=== PATIENT | female | born 1965 | race Caucasian/White ===

== ENCOUNTER 2016-05-24 18:03 | Emergency (ER) | payer MEDICAID, OTHER ==
[~2016-05-24] VITALS: Ht 172.7 cm; Wt 68.0 kg
[~2016-05-24 18:03] MED LIST: ALPR.25T PO; CTLP20T PO; ENXP40I.4 SC; LISI1TAB10 PO; LOVA40TA2 PO; TPR25T PO
--- NOTE | 2016-05-24 18:27 | ED Headache ---
General Chief Complaint: Head/Cervical Problems Stated Complaint: 'BONE FLAP' PAIN FROM BRAIN SURGERY Source: patient Exam Limitations: no limitations History of Present Illness Time seen by provider: 18:24 Initial Comments To ER with pain in her head. 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 Bone flaps were placed with craniotomy site. She had a spontaneous fracture of the skull near the bone flap site after hearing a popping noise in March 2015 without injury. About 1 month ago she heard a popping noise again. Again, there was no injury. For the past 3 weeks she's had some tingling in her left hand and pain behind the right eye as well as blurred vision in the right eye. Neurosurgeon is in [facility]. Timing/Duration: 1 week Severity/Quality: moderate Location: frontal, parietal Associated Symptoms: No confusion, No nausea/vomiting, No numbness in legs/feet , vision changes Allergies and Home Medications Allergies Coded Allergies: Sulfa (Sulfonamide Antibiotics) (Verified Allergy, Unknown, 05/24/16) divalproex sodium (Verified Allergy, Unknown, 05/24/16) iodine (Verified Allergy, Unknown, 05/24/16) Home Medications (Reported) Alprazolam 0.5 Mg Tablet 0.5 MG PO TID (Reported) Aspirin 81 Mg Tablet.dr 81 MG PO (Reported) Cholecalciferol (Vitamin D3) 400 Unit Capsule 400 UNIT PO (Reported) Cyanocobalamin 1,000 Mcg/Ml Inj 1,000 MCG IJ (Reported) Duloxetine HCl 60 Mg Capsule.dr 60 MG PO (Reported) Folic Acid 0.4 Mg Tablet 0.4 MG PO (Reported) Gabapentin 100 Mg Capsule 100 MG PO (Reported) Lisinopril 20 Mg Tablet 20 MG PO DAILY (Reported) Metoprolol Tartrate 25 Mg Tablet 25 MG PO BID (Reported) Ondansetron 4 Mg Tab.rapdis 4 MG PO (Reported) Oxycodone HCl/Acetaminophen 1 Each Tablet 1 EACH PO (Reported) Pravastatin Sodium 80 Mg Tablet 80 MG PO (Reported) Tizanidine HCl 4 Mg Capsule 4 MG PO TID (Reported) Constitutional: see HPI Eyes: No Symptoms Reported Ears, Nose, Mouth, Throat: no symptoms reported Respiratory: no symptoms reported Cardiovascular: no symptoms reported Genitourinary: no symptoms reported Musculoskeletal: no symptoms reported Skin: no symptoms reported Psychiatric/Neurological: See HPI Headache Paresthesia Pre-Existing Deficit Past Gqubiaa-Wpphvj-Svcwrn Hx Patient Social History Recent Foreign Travel: No Contact w/Someone Who Travel: No Respiratory Hx Respiratory Disorders: Yes (seasonal allergies) Cardiovascular Hx Cardiac Disorders: Yes (mvp) Genitourinary Hx Genitourinary Disorders: No Gastrointestinal Hx Gastrointestinal Disorders: No Cancer Hx Cancer: No Physical Exam Vital Signs Vital Sign - Last 12Hours 05/24/16 18:11 Temp 98.9 Pulse 56 Resp 18 B/P 188/97 Pulse Ox 96 O2 Delivery Room Air Capillary Refill : General Appearance: WD/WN no apparent distress HEENT: PERRL/EOMI normal ENT inspection TMs normal Neck: non-tender full range of motion Respiratory: normal breath sounds no respiratory distress no accessory muscle use Gastrointestinal: normal bowel sounds non tender soft Extremities: normal range of motion non-tender Psychiatric: alert oriented x 3 Crainal Nerves: normal hearing normal speech Skin: normal color warm/dry Progress/Results/Core Measures Results/Orders My Orders Orders-MARLEN FLANAGAN APRN Ct Head Wo (05/24/16 18:23) Vital Signs/I&O Vital Sign - Last 12Hours 05/24/16 18:11 Temp 98.9 Pulse 56 Resp 18 B/P 188/97 Pulse Ox 96 O2 Delivery Room Air Diagnostic Imaging Diagonstic Imaging: CT Comments NAME: ANTHONY KING [facility] REC#: [id number] PT STATUS: REG ER : 1965 PHYSICIAN: MARLEN FLANAGAN APRN ADMIT DATE: 05/24/16/ER Draft Date of Exam:05/24/16 CT HEAD WO INDICATION: History of previous craniotomy for removal of cyst in third ventricle, now with left hand tingling and retro-orbital pain. EXAMINATION: Noncontrast brain CT was performed. COMPARISON: There is no prior study available for comparison at this time. FINDINGS: There are no extra-axial fluid collections. No intracranial hemorrhage. No mass effect or midline shift. There is no significant ventricular dilatation. There are likely chronic changes in the region of the septum pellucidum, without mass effect. Calvarial windows show evidence of previous craniotomy with no acute appearing finding. There is no significant opacification of the visualized paranasal sinuses. IMPRESSION: Postoperative findings with no acute intracranial abnormality seen. Dictated on workstation # [id number] Dict: 05/24/16 1846 Trans: 05/24/16 185 [facility] [id number] Interpreted by: HI ENG MD Electronically signed by: Departure Impression Impression: Primary Impression: Headache Qualified Code: R51 - Headache Disposition: 01 HOME, SELF-CARE Condition: Stable Departure-Patient Inst. Decision time for Depature: 19:03 Referrals: ARVIN GOMES (PCP/Family) Primary Care Physician Patient Instructions: Headache, Adult (DC) Add. Discharge Instructions: 1. Follow-up with her neurologist or neurosurgeon 2. All discharge instructions reviewed with patient and/or family. Voiced understanding. MARLEN FLANAGAN APRN May 24, 2016 18:26
[2016-05-24] MEDS ORDERED: GABA-486 PO (18:33)
[2016-05-24] MEDS ORDERED: DULO60CA58 PO (18:33)
[2016-05-24] MEDS ORDERED: FOLI0.4T2 PO (18:33)
[2016-05-24] MEDS ORDERED: TIZA4CAP8 PO (18:33)
[2016-05-24] MEDS ORDERED: CNC1KV IJ (18:33)
[2016-05-24] MEDS ORDERED: KCL (18:33)
[2016-05-24] MEDS ORDERED: METO-333 PO (18:33)
[2016-05-24] MEDS ORDERED: PRAV80TA2 PO (18:33)
[2016-05-24] MEDS ORDERED: ERGO400C PO (18:33)
[2016-05-24] MEDS ORDERED: ALPR0.5T PO (18:33)
[2016-05-24] MEDS ORDERED: ASPI-586 PO (18:33)
[2016-05-24] MEDS ORDERED: ONDA4TAB8 PO (18:33)
[2016-05-24] MEDS ORDERED: OXYC-471 PO (18:33)
[2016-05-24] MEDS ORDERED: LISI-552 PO (18:33)
--- NOTE | 2016-05-24 18:52 | Diagnostic Imaging Report ---
INDICATION: History of previous craniotomy for removal of cyst in third ventricle, now with left hand tingling and retro-orbital pain. EXAMINATION: Noncontrast brain CT was performed. COMPARISON: There is no prior study available for comparison at this time. FINDINGS: There are no extra-axial fluid collections. No intracranial hemorrhage. No mass effect or midline shift. There is no significant ventricular dilatation. There are likely chronic changes in the region of the septum pellucidum, without mass effect. Calvarial windows show evidence of previous craniotomy with no acute appearing finding. There is no significant opacification of the visualized paranasal sinuses. IMPRESSION: Postoperative findings with no acute intracranial abnormality seen. Dictated by: Dictated on workstation # [id number]
[2016-05-24] MEDS ORDERED: ACET/BUTAL/CAFF (FIORICET) TAB PO PRN (19:15)
[2016-05-24 19:17] VITALS: BP 0/0
== END 2016-05-24 19:17 | disposition home or self-care (01) ==
LOC: EDUNIT# 18:03 → ER 18:06
DX: R51 Headache (principal); Z98.890 Other specified postprocedural states; Z79.899 Other long term (current) drug therapy
CPT/HCPCS: 70450; 99282

== ENCOUNTER 2016-06-15 19:14 | Emergency (ER) | payer MEDICAID ==
[~2016-06-15] VITALS: Ht 172.7 cm; Wt 59.9 kg
[~2016-06-15 19:14] MED LIST changes: +ALPR0.5T PO; +ASPI-586 PO; +CNC1KV IJ; +DULO60CA58 PO; +ERGO400C PO; +FOLI0.4T2 PO; +GABA-486 PO; +KCL; +LISI-552 PO; +METO-333 PO; +ONDA4TAB8 PO; +OXYC-471 PO; +PRAV80TA2 PO; +TIZA4CAP8 PO
--- OUTSIDE RECORDS SUMMARY | 2016-06-15 19:21 | XMS REPORT | Continuity of Care Document ---
Author Author [facility] Organization [facility] Address Unknown Phone Unavailable Care Team Providers Care Communications And Signals Supervisor Name Role Phone ARVIN GOMES PCP Insurance Providers Payer Name Policy Number Subscriber Name Relationship Unknown Jo Ann Wiley 18 Self / Same As Patient Advance Directives Directive Response Recorded Date/Time Advance Directives No 05/24/16 6:11pm Health Care Power of [employer] Product Consultant No 05/24/16 6:11pm Organ Donor Yes 05/24/16 6:11pm Resuscitation Status Full Code 05/24/16 6:11pm Chief Complaint and Reason for Visit Chief Complaint Head/Cervical Problems Reason for Visit Headache Problems Active Problems Medical Problem Onset Date Status Headache Unknown Acute Medications Current Home Medications Medication Dose Units Route Directions Days/Qty Instructions Start Date Duloxetine Hcl 60 Mg 60 Mg Oral 05/24/16 Tizanidine Hcl 4 Mg 4 Mg Oral Three Times A Day 05/24/16 Cyanocobalamin 1,000 Mcg/Ml 1,000 Mcg Injection 05/24/16 Gabapentin 100 Mg 100 Mg Oral 05/24/16 Cholecalciferol (Vitamin D3) 400 Unit 400 Unit Oral 05/24/16 Lisinopril 20 Mg 20 Mg Oral Daily 05/24/16 Ondansetron 4 Mg 4 Mg Oral 05/24/16 Oxycodone Hcl/Acetaminophen 1 Each 1 Each Oral 02/25/17 Metoprolol Tartrate 25 Mg 25 Mg Oral Twice A Day 05/24/16 Folic Acid 0.4 Mg 0.4 Mg Oral 05/24/16 Aspirin 81 Mg 81 Mg Oral 05/24/16 Alprazolam 0.5 Mg 0.5 Mg Oral Three Times A Day 05/24/16 [Kcl] 05/24/16 Pravastatin Sodium 80 Mg 80 Mg Oral 05/24/16 Past Home Medications Medication Directions Ordered Status Enoxaparin Sodium 40 Mg/0.4 Ml Soln, 40 Mg Subcutaneously Daily@12 03/08/12 Discontinued Lovastatin (Mevacor) 40 Mg Tablet, 1 Each Oral Daily With Supper 03/08/12 Discontinued Citalopram Hydrobromide 20 Mg Tablet, 1 Each Oral Daily 03/08/12 Discontinued Hctz/Lisinopril (Zestoretic) 1 Tab Tablet, 1 Each Oral Daily 03/08/12 Discontinued Alprazolam 0.25 Mg Tablet, 1 Tab Oral Q8hr Prn 03/08/12 Discontinued Topiramate 25 Mg Tab, 25 Mg Oral Give Every 12 Hrs On Schedule 03/08/12 Discontinued Social History Social History Problem Response Recorded Date/Time Alcohol Use Denies Use 05/24/2016 6:11pm Recreational Drug Use No 05/24/2016 6:11pm Recent Foreign Travel No 05/24/2016 6:11pm Recent Infectious Disease Exposure No 05/24/2016 6:11pm Hospitalization with Isolation Denies 05/24/2016 6:11pm Smoking Status Current Everyday Smoker 05/24/2016 6:11pm Type Used Cigarettes 05/24/2016 6:11pm Recent Hopitalizations No 05/24/2016 6:11pm Hospitalization with Isolation Denies 05/24/2016 6:11pm Query Response Start Date Stop Date Smoking Status Current Everyday Smoker Hospital Discharge Instructions No hospital discharge instructions. Plan of Care Discharge Date 05/24/16 7:17pm Disposition 01 HOME, SELF-CARE Condition at Discharge Stable Instructions/Education Provided Headache, Adult (DC) Prescriptions See Medication Section Referrals ARVIN GOMES - Primary Care Physician Additional Instructions/Education 1. Follow-up with her neurologist or neurosurgeon 2. All discharge instructions reviewed with patient and/or family. Voiced understanding. Functional Status Query Response Date Recorded Patient Orientation Person Place Time Situation May 24, 2016 6:11pm Comprehension Ability Understands Concepts May 24, 2016 6:11pm Allergies, Adverse Reactions, Alerts Allergen Type Severity Reaction Status Last Updated Sulfa (Sulfonamide Antibiotics) ([id number]) Allergy Unknown Active iodine ([id number]) Allergy Unknown Active 05/24/16 divalproex sodium ([id number]) Allergy Unknown Active 05/24/16 Immunizations No immunization records. Vital Signs Acute Vital Signs Vital Response Date/Time Temperature (Fahrenheit) 98.9 degrees F (97.6 - 99.5) 05/24/2016 6:11pm Temperature (Calculated Celsius) 37.22739 degrees C (36.4 - 37.5) 05/24/2016 6:11pm Temperature Source Temporal 05/24/2016 6:11pm Pulse Rate (adult) 56 bpm (60 - 90) 05/24/2016 6:11pm Respiratory Rate 18 bpm (12 - 24) 05/24/2016 6:11pm O2 Sat by Pulse Oximetry 96 % (88 - 100) 05/24/2016 6:11pm Blood Pressure 188/97 mm Hg 05/24/2016 6:11pm Blood Pressure Mean 127 mm Hg 05/24/2016 6:11pm Pain Numeric Pain Scale 9 05/24/2016 6:11pm Height (Feet) 5 feet 05/24/2016 6:11pm Height (Inches) 8 inches 05/24/2016 6:11pm Height (Calculated Centimeters) 172.188637 cm 05/24/2016 6:11pm Weight (Pounds) 150 pounds 05/24/2016 6:11pm Weight (Calculated Kilograms) 68.149222 kilograms 05/24/2016 6:11pm Capillary Refill Capillary Refill Less Than 3 Seconds 05/24/2016 6:11pm Height 5 ft 8 in Weight 150 lb Body Mass Index 22.8 kg/m^2 Results No known relevant diagnostic tests, laboratory data and/or discharge summary. Procedures No known history of procedures. Encounters Encounter Location Arrival/Admit Date Discharge/Depart Date Attending Provider Departed Emergency Room [facility] 05/24/16 6:06pm 05/24 7:17pm MARLEN FLANAGAN APRN Recent Diagnosis
[2016-06-15] MEDS ORDERED: ONDANSETRON 4 MG/2 ML (SDV) Z0FRAN IVP ONE (20:15)
[2016-06-15] MEDS ORDERED: KETOROLAC 30 MG/ML VIAL IVP ONE (20:15)
[2016-06-15] MEDS ORDERED: LACTATED RINGERS 1,000 ML IV ONE (20:15)
[2016-06-15 20:25] LABS: BASOPHILS # (AUTO) 0.1 10^3/uL (0.0-0.1); BASOPHILS % (AUTO) 1 % (0-10); EOSINOPHILS # (AUTO) 0.2 10^3/uL (0.0-0.3); EOSINOPHILS % (AUTO) 3 % (0-10); LYMPHOCYTES # (AUTO) 3.2 X 10^3 (1.0-4.0); LYMPHOCYTES % (AUTO) 40 % (12-44); MEAN CORPUSCULAR HEMOGLOBIN 33 PG (25-34); MEAN CORPUSCULAR HGB CONC 36 G/DL (32-36); MEAN CORPUSCULAR VOLUME 91 FL (80-99); MEAN PLATELET VOLUME 10.2 FL (7.4-10.4); MONOCYTES # (AUTO) 0.7 X 10^3 (0.0-1.0); MONOCYTES % (AUTO) 8 % (0-12); NEUTROPHILS # (AUTO) 3.8 X 10^3 (1.8-7.8); NEUTROPHILS % (AUTO) 48 % (42-75); PLATELET COUNT 235 10^3/uL (130-400); RED BLOOD COUNT 4.56 10^6/uL (4.35-5.85); RED CELL DISTRIBUTION WIDTH 12.8 % (10.0-14.5); WHITE BLOOD COUNT 7.9 10^3/uL (4.3-11.0)
[2016-06-15 20:34] LABS: ANION GAP 13 MMOL/L (5-14); BLOOD UREA NITROGEN 10 MG/DL (7-18); BUN/CREATININE RATIO 11; CALCIUM 9.6 MG/DL (8.5-10.1); CARBON DIOXIDE 23 MMOL/L (21-32); CHLORIDE 105 MMOL/L (98-107); CREATININE SERUM 0.87 MG/DL (0.60-1.30); GFR ESTIMATED > 60; GLUCOSE 89 MG/DL (70-105); MAGNESIUM 2.3 MG/DL (1.8-2.4); POTASSIUM 3.8 MMOL/L (3.6-5.0); SODIUM 141 MMOL/L (135-145)
--- NOTE | 2016-06-15 20:37 | ED Headache ---
General Chief Complaint: Head/Cervical Problems Stated Complaint: VOMITING/TREMORS DIZZINESS HEAD PAIN DOUBLE VISION Nursing Triage Note: PT TO ED 9 W/ C/O HEAD PAIN ET "POSS CSF LEAK" FROM HER EARS. PT SEEN IN THIS ED SEVERAL WEEKS AGO FOR THE SAME C/O. AT THAT TIME PT REPORTED SHE THOUGHT SHE FELT A "POP" IN HER TEMPORAL REGION ET STATED THE LAST TIME THAT HAPPENED SHE HAD A "SPONTANEOUS SKULL FX." PT REPORTS NAUSEA, DIZZINESS ET HEAD PAIN THIS EVENING. DOES REPORT SHE HAS AN APPT W/ ENT AT [facility] Sepsis Screen: No Definite Risk Source: patient Exam Limitations: no limitations History of Present Illness Time seen by provider: 20:07 Initial Comments This 50-year-old woman presents to the emergency room with exacerbation of recurrent headaches. Patient has a history of craniotomy for tumor removal with plating and revision. She follows with neurosurgery at [facility]. Patient reports she has generally not felt well for a couple of days. She is to see an ENT specialist later this week. She reports having problems with ear effusions. Her headache is radiating from the back for head to behind the eyes and the jaw. She took her usual Zofran and Percocet today which was not helpful. To treat her ear effusion she has only been taking Benadryl at night. She gives a history of following up closely with her neurosurgeon and having follow-up imaging performed. Allergies and Home Medications Allergies Coded Allergies: Sulfa (Sulfonamide Antibiotics) (Verified Allergy, Unknown, 05/24/16) divalproex sodium (Verified Allergy, Unknown, 05/24/16) iodine (Verified Allergy, Unknown, 05/24/16) Home Medications (Reported) Alprazolam 0.5 Mg Tablet 0.5 MG PO TID (Reported) Aspirin 81 Mg Tablet. 81 MG PO (Reported) Cholecalciferol (Vitamin D3) 400 Unit Capsule 400 UNIT PO (Reported) Cyanocobalamin 1,000 Mcg/Ml Inj 1,000 MCG IJ (Reported) Duloxetine HCl 60 Mg Capsule.dr 60 MG PO (Reported) Fluticasone Propionate 9.9 Ml [place].susp #1 2 SPRAY NSEACH DAILY Prescribed by: BENJAMIN FARIA on 06/15/162047 Folic Acid 0.4 Mg Tablet 0.4 MG PO (Reported) Gabapentin 100 Mg Capsule 100 MG PO (Reported) Lisinopril 20 Mg Tablet 20 MG PO DAILY (Reported) Loratadine 10 Mg Tablet #30 10 MG PO DAILY Prescribed by: BENJAMIN FARIA on 06/15/162047 Metoprolol Tartrate 25 Mg Tablet 25 MG PO BID (Reported) Ondansetron 4 Mg Tab.rapdis 4 MG PO (Reported) Oxycodone HCl/Acetaminophen 1 Each Tablet 1 EACH PO (Reported) Pravastatin Sodium 80 Mg Tablet 80 MG PO (Reported) Tizanidine HCl 4 Mg Capsule 4 MG PO TID (Reported) Triamterene/Hydrochlorothiazid 1 Each Tablet #15 1 EACH PO DAILY Prescribed by: MARJAN STOLL on 06/16/16 1354 Constitutional: see HPI Eyes: No Symptoms Reported Ears, Nose, Mouth, Throat: no symptoms reported Respiratory: no symptoms reported Cardiovascular: no symptoms reported Gastrointestinal: see HPI Genitourinary: no symptoms reported Musculoskeletal: no symptoms reported Skin: no symptoms reported Psychiatric/Neurological: See HPI Past Mjrtwvn-Khzsdk-Xcammi Hx Patient Social History Alcohol Use: Denies Use Recreational Drug Use: No Smoking Status: Current Everyday Smoker Type Used: Cigarettes Recent Foreign Travel: No Contact w/Someone Who Travel: No Recent Infectious Disease Expo: No Recent Hopitalizations: No Seasonal Allergies Seasonal Allergies: Yes Surgeries HX Surgeries: Yes (BRAIN TUMOR REMOVAL, craniotomy revision with hardware) Surgeries: Gallbladder, Hysterectomy Respiratory Hx Respiratory Disorders: No Cardiovascular Hx Cardiac Disorders: Yes (mvp) Neurological Hx Neurological Disorders: Yes (MEMORY LOSS R/T BRAIN TUMOR REMOVAL, craniotomy and revision with hardware) Neurological Disorders: Brain Tumor, Headaches /Migraines Reproductive System : No Genitourinary Hx Genitourinary Disorders: No Gastrointestinal Hx Gastrointestinal Disorders: No Musculoskeletal Hx Musculoskeletal Disorders: Yes (Craniotomy with hardware) Endocrine Hx Endocrine Disorders: No HEENT HX ENT Disorders: No Cancer Hx Cancer: No Psychosocial Hx Psychiatric Problems: Yes Behavioral Health Disorders: Anxiety, Depression Physical Exam Vital Signs Vital Sign - Last 12Hours 06/15/16 19:44 Temp 98.6 Pulse 59 Resp 20 B/P 203/106 Pulse Ox 97 O2 Delivery Room Air Capillary Refill : Less Than 3 Seconds General Appearance: WD/WN other (Appears uncomfortable) HEENT: PERRL/EOMI normal ENT inspection other (TM scarring bilaterally with serous effusion on the right) Neck: normal inspection Cardiovascular: regular rate, rhythm no edema no murmur Respiratory: lungs clear normal breath sounds no respiratory distress no accessory muscle use Gastrointestinal: normal bowel sounds non tender soft Extremities: normal inspection no pedal edema Psychiatric: alert oriented x 3 Crainal Nerves: normal hearing normal speech PERRL Motor/Sensory: no motor deficit no sensory deficit Skin: normal color warm/dry Progress/Results/Core Measures Results/Orders Lab Results Laboratory Tests Test 06/15/16 19:51 Range/Units Anion Gap 13 5-14 MMOL/L BUN/Creatinine Ratio 11 Basophils # (Auto) 0.1 0.0-0.1 10^3/uL Basophils (%) (Auto) 1 0-10 % Blood Urea Nitrogen 10 7-18 MG/DL C-Reactive Protein High Sensitivity 0.10 0.00-0.50 MG/DL Calcium Level 9.6 8.5-10.1 MG/DL Carbon Dioxide Level 23 21-32 MMOL/L Chloride Level 105 98-107 MMOL/L Creatinine 0.87 0.60-1.30 MG/DL Eosinophils # (Auto) 0.2 0.0-0.3 10^3/uL Eosinophils (%) (Auto) 3 0-10 % Estimat Glomerular Filtration Rate > 60 Glucose Level 89 70-105 MG/DL Hematocrit 42 35-52 % Hemoglobin 14.8 11.5-16.0 G/DL Lymphocytes # (Auto) 3.2 1.0-4.0 X 10^3 Lymphocytes (%) (Auto) 40 12-44 % Magnesium Level 2.3 1.8-2.4 MG/DL Mean Corpuscular Hemoglobin 33 25-34 PG Mean Corpuscular Hemoglobin Concent 36 32-36 G/DL Mean Corpuscular Volume 91 80-99 FL Mean Platelet Volume 10.2 7.4-10.4 FL Monocytes # (Auto) 0.7 0.0-1.0 X 10^3 Monocytes (%) (Auto) 8 0-12 % Neutrophils # (Auto) 3.8 1.8-7.8 X 10^3 Neutrophils (%) (Auto) 48 42-75 % Platelet Count 235 130-400 10^3/uL Potassium Level 3.8 3.6-5.0 MMOL/L Red Blood Count 4.56 4.35-5.85 10^6/uL Red Cell Distribution Width 12.8 10.0-14.5 % Sodium Level 141 135-145 MMOL/L White Blood Count 7.9 4.3-11.0 10^3/uL My Orders Orders-BENJAMIN YADAV MD Basic Metabolic Panel (06/15/16 20:15) Cbc With Automated Diff (06/15/16 20:15) Magnesium (06/15/16 20:15) Saline Lock/Iv-Start (06/15/16 20:15) Lactated Ringers (Lr 1000 Ml Iv Solution (06/15/16 20:15) Ketorolac Injection (Toradol Injection) (06/15/16 20:15) Ondansetron Injection (Zofran Injectio (06/15/16 20:15) Hs C Reactive Protein (06/15/16 20:17) Medications Given in ED Vital Signs/I&O Vital Sign - Last 12Hours 06/15/16 06/15/16 19:44 21:38 Temp 98.6 Pulse 59 60 Resp 20 16 B/P 203/106 Pulse Ox 97 98 O2 Delivery Room Air Blood Pressure Mean: 138 Progress Note : Progress Note Patient received Zofran, Toradol, and a liter of IV fluids with significant improvement. Labs revealed no significant abnormalities. Patient felt comfortable returning home. She was prescribed Flonase and Claritin for the ear effusion. Departure Impression Impression: Primary Impression: Recurrent headache Additional Impression: Serous otitis media Qualified Code: H65.91 - Unspecified nonsuppurative otitis media, right ear Disposition: 01 HOME, SELF-CARE Condition: Improved Departure-Patient Inst. Decision time for Depature: 20:46 Referrals: [facility] (PCP/Family) Primary Care Physician Patient Instructions: Headache, Adult (DC) Add. Discharge Instructions: Stay well-hydrated. Use your Zofran as prescribed. You may use ibuprofen up to 600 mg every 6 hours as needed. Add your Percocet or Tylenol for pain not controlled by ibuprofen. Return to care if symptoms worsen. All discharge instructions reviewed with patient and/or family. Voiced understanding. Scripts Loratadine (Claritin)10 Mg [id number] Mg PO DAILY #30 TAB Prov:BENJAMIN YADAV MD 06/15/16 Fluticasone Propionate (Flonase Allergy Relief)9.9 Ml [place].susp2 [place] NSEACH DAILY #1 SPRAY Prov:BENJAMIN YADAV MD 06/15/16 BENJAMIN YADAV MD Jun 15, 2016 20:37
[2016-06-15] MEDS ORDERED: FLUT9.9S NSEACH (20:48)
[2016-06-15] MEDS ORDERED: LORA10TA76 PO (20:48)
[2016-06-15 21:38] VITALS: BP 185/94
[2016-06-16] MEDS ORDERED: TRIA1TAB2 PO (13:54)
== END 2016-06-15 21:38 | disposition home or self-care (01) ==
LOC: EDUNIT# 19:14 → ER 19:17
DX: H65.191 Other acute nonsuppurative otitis media, right ear (principal); R51 Headache; I10 Essential (primary) hypertension; F17.210 Nicotine dependence, cigarettes, uncomplicated; Z79.82 Long term (current) use of aspirin; Z79.899 Other long term (current) drug therapy
CPT/HCPCS: 36415; 80048; 83735; 85025; 86141; 96374; 96375

== ENCOUNTER 2016-06-16 12:07 | Emergency (ER) | payer MEDICAID ==
[~2016-06-16] VITALS: Ht 172.7 cm; Wt 63.5 kg
[~2016-06-16 12:07] MED LIST changes: +FLUT9.9S NSEACH; +LORA10TA76 PO
--- OUTSIDE RECORDS SUMMARY | 2016-06-16 12:12 | XMS REPORT | Continuity of Care Document ---
Author Author [facility] Organization [facility] Address Unknown Phone Unavailable Care Team Providers Care Filter Helper Name Role Phone [facility] PCP Insurance Providers Payer Name Policy Number Subscriber Name Relationship [facility] [id number] Jo Ann Wiley 18 Self / Same As Patient Advance Directives Directive Response Recorded Date/Time Advance Directives No 06/15/16 7:44pm Health Care Power of Wafer Substrate Tester No 06/15/16 7:44pm Organ Donor Yes 06/15/16 7:44pm Resuscitation Status Full Code 06/15/16 7:44pm Chief Complaint and Reason for Visit Chief Complaint Head/Cervical Problems Reason for Visit Recurrent headache Serous otitis media Problems Active Problems Medical Problem Onset Date Status Headache Unknown Acute Recurrent headache Unknown Acute Serous otitis media Unknown Acute Medications Current Home Medications Medication [...] Oxycodone Hcl/Acetaminophen 1 Each 1 Each Oral 05/24/16 Metoprolol Tartrate 25 Mg 25 Mg Oral Twice A Day 05/24/16 Folic Acid 0.4 Mg 0.4 Mg Oral 05/24/16 Aspirin 81 Mg 81 Mg Oral 05/24/16 Alprazolam 0.5 Mg 0.5 Mg Oral Three Times A Day 05/24/16 [Kcl] 05/24/16 Pravastatin Sodium 80 Mg 80 Mg Oral 05/24/16 Fluticasone Propionate 9.9 Ml 2 [place] Each Nostril Daily 1 06/15/16 Loratadine 10 Mg 10 Mg Oral Daily 30 06/15/16 Past Home Medications Medication Directions Ordered Status [...] Response Recorded Date/Time Alcohol Use Denies Use 06/15/2016 7:44pm Recreational Drug Use No 06/15/2016 7:44pm Recent Foreign Travel No 06/15/2016 7:44pm Recent Infectious Disease Exposure No 06/15/2016 7:44pm Hospitalization with Isolation Denies 06/15/2016 7:44pm Smoking Status Current Everyday Smoker 06/15/2016 7:44pm Type Used Cigarettes 06/15/2016 7:44pm Recent Hopitalizations No 06/15/2016 7:44pm Hospitalization with Isolation Denies 06/15/2016 7:44pm Query Response Start Date Stop Date Smoking Status Current Everyday Smoker Hospital Discharge Instructions No hospital discharge instructions. Plan of Care Discharge Date 06/15/16 9:38pm Disposition 01 HOME, SELF-CARE Condition at Discharge Improved Instructions/Education Provided Headache, Adult (DC) Prescriptions See Medication Section Referrals [facility] - Primary Care Physician Additional Instructions/Education Stay well-hydrated. Use your Zofran as prescribed. You may use ibuprofen up to 600 mg every 6 hours as needed. Add your Percocet or Tylenol for pain not controlled by ibuprofen. Return to care if symptoms worsen. All discharge instructions reviewed with patient and/or family. Voiced understanding. Functional Status Query Response Date Recorded Patient Orientation Person Place Time Situation June 15, 2016 7:44pm Comprehension Ability Understands Concepts June 15, 2016 7:44pm Allergies, Adverse Reactions, Alerts Allergen Type Severity Reaction Status Last Updated Sulfa (Sulfonamide Antibiotics) ([id number]) Allergy Unknown Active iodine ([id number]) Allergy Unknown Active 05/24/16 divalproex sodium ([id number]) Allergy Unknown Active 05/24/16 Immunizations No immunization records. Vital Signs Acute Vital Signs Vital Response Date/Time Temperature (Fahrenheit) 98.6 degrees F (97.6 - 99.5) 06/15/2016 7:44pm Temperature (Calculated Celsius) 37.17799 degrees C (36.4 - 37.5) 06/15/2016 7:44pm Temperature Source Tympanic 06/15/2016 7:44pm Pulse Rate (adult) 60 bpm (60 - 90) 06/15/2016 9:38pm Respiratory Rate 16 bpm (12 - 24) 06/15/2016 9:38pm O2 Sat by Pulse Oximetry 98 % (88 - 100) 06/15/2016 9:38pm Blood Pressure 185/94 mm Hg 06/15/2016 9:38pm Blood Pressure Mean 138 mm Hg 06/15/2016 7:44pm Pain Numeric Pain Scale 8 06/15/2016 9:38pm Height (Feet) 5 feet 06/15/2016 7:44pm Height (Inches) 8 inches 06/15/2016 7:44pm Height (Calculated Centimeters) 172.676090 cm 06/15/2016 7:44pm Weight (Pounds) 132 pounds 06/15/2016 7:44pm Weight (Calculated Kilograms) 59.055619 kilograms 06/15/2016 7:44pm Capillary Refill Capillary Refill Less Than 3 Seconds 06/15/2016 7:44pm Height 5 ft 8 in Weight 132 lb Body Mass Index 20.1 kg/m^2 Results Pending Laboratory Results Test Name Collection Date/Time Procedures No known history of procedures. Encounters Encounter Location Arrival/Admit Date Discharge/Depart Date Attending Provider Departed Emergency Room [facility] 06/15/16 7:17pm 06/15 9:38pm BENJAMIN YADAV MD Departed Emergency Room [facility] 05/24/16 6:06pm 05/24 7:17pm MARLEN FLANAGAN APRN Recent Diagnosis
[2016-06-16 12:46] LABS: BASOPHILS # (AUTO) 0.1 10^3/uL (0.0-0.1); BASOPHILS % (AUTO) 1 % (0-10); EOSINOPHILS # (AUTO) 0.1 10^3/uL (0.0-0.3); EOSINOPHILS % (AUTO) 1 % (0-10); LYMPHOCYTES # (AUTO) 1.9 X 10^3 (1.0-4.0); LYMPHOCYTES % (AUTO) 24 % (12-44); MEAN CORPUSCULAR HEMOGLOBIN 33 PG (25-34); MEAN CORPUSCULAR HGB CONC 36 G/DL (32-36); MEAN CORPUSCULAR VOLUME 92 FL (80-99); MEAN PLATELET VOLUME 9.9 FL (7.4-10.4); MONOCYTES # (AUTO) 0.5 X 10^3 (0.0-1.0); MONOCYTES % (AUTO) 7 % (0-12); NEUTROPHILS # (AUTO) 5.5 X 10^3 (1.8-7.8); NEUTROPHILS % (AUTO) 68 % (42-75); PLATELET COUNT 219 10^3/uL (130-400); RED BLOOD COUNT 4.36 10^6/uL (4.35-5.85); RED CELL DISTRIBUTION WIDTH 12.7 % (10.0-14.5); WHITE BLOOD COUNT 8.1 10^3/uL (4.3-11.0)
[2016-06-16 12:56] LABS: INR 1.1 (0.8-1.4); PROTHROMBIN TIME PATIENT 13.6 SEC (12.2-14.7)
[2016-06-16] MEDS ORDERED: ENALAPRILAT 2.5 MG/2 ML (VASOTEC) VIAL IV ONE (13:00)
[2016-06-16 13:07] LABS: ALANINE AMINOTRANSFERASE 13 U/L (0-55); ALBUMIN 4.4 G/DL (3.2-4.5); ANION GAP 9 MMOL/L (5-14); ASPARTATE AMINO TRANSFERASE 15 U/L (5-34); BILIRUBIN,TOTAL 0.8 MG/DL (0.1-1.0); BLOOD UREA NITROGEN 8 MG/DL (7-18); BUN/CREATININE RATIO 9; CALCIUM 9.3 MG/DL (8.5-10.1); CARBON DIOXIDE 25 MMOL/L (21-32); CHLORIDE 105 MMOL/L (98-107); CREATININE SERUM 0.93 MG/DL (0.60-1.30); GFR ESTIMATED > 60; GLUCOSE 97 MG/DL (70-105); POTASSIUM 4.3 MMOL/L (3.6-5.0); SODIUM 139 MMOL/L (135-145); TOTAL PROTEIN 6.2 G/DL (6.4-8.2)
--- NOTE | 2016-06-16 13:16 | Diagnostic Imaging Report ---
PROCEDURE: CT head without contrast. TECHNIQUE: Multiple contiguous axial images were obtained through the brain without the use of intravenous contrast. INDICATION: Dizziness and blurred vision, hypertension. Comparison with 05/24/2016. FINDINGS: There is no evidence of intracranial hemorrhage. There is no extra-axial fluid collection. There is no mass effect or shift of midline. Ventricles appear normal. Basal cisterns are clear. Postoperative changes are again noted with right frontal parietal craniotomy. The mastoid air cells and paranasal sinuses are clear. IMPRESSION: Postoperative residue with no acute changes demonstrated when compared with previous exam. Dictated by: Dictated on workstation # [id number]
--- NOTE | 2016-06-16 13:23 | Diagnostic Imaging Report ---
INDICATION: Hypertension with increasing headaches. Comparison with 03/08/2012. FINDINGS: Portable chest shows the lungs to be well aerated and clear. The heart is not enlarged. There is no pulmonary edema. No hilar adenopathy. No pneumothorax or pleural effusions. There is mild scoliosis of the thoracic spine with no other bony abnormality. IMPRESSION: No acute abnormalities demonstrated. Dictated by: Dictated on workstation # [id number]
--- NOTE | 2016-06-16 13:38 | ED Headache ---
General Chief Complaint: Head/Cervical Problems Stated Complaint: HIGH BLOOD PRESSURE, MIGRANE Nursing Triage Note: Pt reports increased FLORES over past couple weeks and high blood pressure. Pt was seen in this ED last night for same symptoms and had appointment at [facility] today for follow up. Pt was sent here from [facility] today. Pt has hx craniotomy and cranioplasty. Nursing Sepsis Screen: No Definite Risk Source: patient, old records History of Present Illness Time seen by provider: 12:40 Initial Comments PT SENT BY POElvia FROM [facility] PT HAS CHRONIC MIGRAINES FOR YEARS AND TAKES PERCOCET FOR THEM HAS HAD INCREASED HEADACHES FOR THE LAST COUPLE OF WEEKS THIS HEADACHE STARTED YESTERDAY HEADACHE STARTS AT BASE OF SKULL/POSTERIORLY AND GOES UP THE BACK OF HER HEAD-- EXACTLY THE SAME PREVIOUS HEADACHES C/O NAUSEA AND VOMITING WITH HEADACHE--VOMITED YESTERDAY, BUT NOT TODAY. HAS ZOFRAN AT HOME, BUT HAS NOT TAKEN ANY TODAY STATES SHE HAS NOT BEEN ABLE TO KEEP DOWN MEDICATIONS YESTERDAY, BUT DID TAKE 1 PERCOCET THIS AM, WHICH HELPED TEMPORARILY NO VISION CHANGES NO PARESTHESIAS OR MOTOR DEFICITS NO FEVER NO RECENT ILLNESS, SINUS SYMPTOMS, ETC. C/O CHEST HEAVINESS --STATES IT FEELS HEAVY TO BREATHE PT WAS SEEN HERE LAST PM FOR THIS PROBLEM, AND WAS SEEN AT [facility] TODAY FOR FOLLOW UP BP IN CLINIC WAS 220/102, SO WAS SENT HERE. PT STATES SHE DID TAKE HER BP MEDICATIONS TODAY, BUT NOT YESTERDAY,. PT HAS LONGSTANDING HX OF HTN, AND BP HAS BEEN HIGH THE LAST COUPLE OF WEEKS-- NORMALLY RUNS 140-150'S/80-90. NO RECENT CHANGES IN DOSES OF MEDICATIONS WAS GIVEN PHENERGAN 50 MG IM, THEN SENT HERE BY POV. PT C/O DIZZINESS SINCE RECEIVING PHENERGAN. HAD NOT BEEN HAVING PROBLEMS WITH DIZZINESS PRIOR TO THAT. STATES NAUSEA HAS IMPROVED SINCE SHE RECEIVED THE PHENERGAN LAST CT HEAD WAS 05/24/16 FOR THIS SAME COMPLAINT AND WAS NORMAL EXCEPT FOR POST -OP CHANGES PT HAD A REMOVAL OF COLLOID CYST OF 3RD VENTRICLE REMOVED 04/2014 AND HAD CRANIOPLASTY/"BONE FLAPS" AND HARDWARE REMOVAL 06/07/15 PT SAW HER NEUROSURGEON 06/03/16 AT [facility] IN , AND HAS BEEN FULLY RELEASED FROM THEIR CARE AT THIS TIME PT HAS APPOINTMENT WITH ENT AT [facility] TOMORROW FOR FLUID BEHIND EAR DRUMS PCP:[facility] Allergies and Home Medications Allergies Coded Allergies: Sulfa (Sulfonamide Antibiotics) (Verified Allergy, Unknown, 05/24/16) divalproex sodium (Verified Allergy, Unknown, 05/24/16) iodine (Verified Allergy, Unknown, 05/24/16) Home Medications (Reported) Alprazolam 0.5 Mg Tablet 0.5 MG PO TID (Reported) Aspirin 81 Mg Tablet.dr 81 MG PO (Reported) Cholecalciferol (Vitamin D3) 400 Unit Capsule 400 UNIT PO (Reported) Cyanocobalamin 1,000 Mcg/Ml Inj 1,000 MCG IJ (Reported) Duloxetine HCl 60 Mg Capsule.dr 60 MG PO (Reported) Fluticasone Propionate 9.9 Ml [place].susp #1 2 SPRAY NSEACH DAILY Prescribed by: BENJAMIN FARIA on 06/15/162047 Folic Acid 0.4 Mg Tablet 0.4 MG PO (Reported) Gabapentin 100 Mg Capsule 100 MG PO (Reported) Lisinopril 20 Mg Tablet 20 MG PO DAILY (Reported) Loratadine 10 Mg Tablet #30 10 MG PO DAILY Prescribed by: BENJAMIN FARIA on 06/15/162047 Metoprolol Tartrate 25 Mg Tablet 25 MG PO BID (Reported) Ondansetron 4 Mg Tab.rapdis 4 MG PO (Reported) Oxycodone HCl/Acetaminophen 1 Each Tablet 1 EACH PO (Reported) Pravastatin Sodium 80 Mg Tablet 80 MG PO (Reported) Tizanidine HCl 4 Mg Capsule 4 MG PO TID (Reported) Triamterene/Hydrochlorothiazid 1 Each Tablet #15 1 EACH PO DAILY Prescribed by: MARJAN STOLL on 06/16/16 1354 Constitutional: see HPINo chills, No diaphoresis, dizzinessNo fever Eyes: No Symptoms ReportedDenies Blindness, Denies Blurred Vision, Denies Decreased Acuity, Denies Photophobia, Denies Shadows, Denies Tunnel Vision, Denies Vision Changes Ears, Nose, Mouth, Throat: see HPI (FLUID IN EARS) Respiratory: no symptoms reported Cardiovascular: see HPI (CHEST FEELS HEAVY WITH BREATHING)No edema, No palpitations, No syncope Gastrointestinal: see HPINo abdominal pain, loss of appetite nausea vomiting Genitourinary: no symptoms reported : No (S/P HYST 2000) Musculoskeletal: no symptoms reportedNo back pain, No neck pain Skin: no symptoms reported Psychiatric/Neurological: See HPI HeadacheDenies Numbness, Denies Paresthesia , Denies Seizure, Denies Tingling, Denies Tremors, Denies Weakness Past Jyrvcst-Ocvjth-Cpglkz Hx Patient Social History Alcohol Use: Denies Use Recreational Drug Use: No Smoking Status: Current Everyday Smoker (1 PPD) Type Used: Cigarettes Recent Foreign Travel: No Contact w/Someone Who Travel: No Recent Infectious Disease Expo: No Recent Hopitalizations: No Seasonal Allergies Seasonal Allergies: Yes Surgeries HX Surgeries: Yes (COLLOID CYST OF 3RD VENTRICLE REMOVED 04/2014; CRANIOPLASTY/ "BONE FLAPS" AND HARDWARE REMOVAL 06/07/15) Surgeries: Gallbladder, Hysterectomy, Neurological Respiratory Hx Respiratory Disorders: No Cardiovascular Hx Cardiac Disorders: Yes (MVP) Cardiac Disorders: High Cholesterol, Hypertension, Valvular Heart Disease Neurological Hx Neurological Disorders: Yes (MEMORY LOSS R/T BRAIN CYST REMOVAL--COLLOID CYST OF 3RD VENTRICLE. 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 Genitourinary Hx Genitourinary Disorders: No Gastrointestinal Hx Gastrointestinal Disorders: No Musculoskeletal Hx Musculoskeletal Disorders: No Endocrine Hx Endocrine Disorders: No HEENT HX ENT Disorders: No Cancer Hx Cancer: No Psychosocial Hx Psychiatric Problems: Yes Behavioral Health Disorders: Anxiety, Depression Integumentary HX Skin/Integumentary Disorder: No Blood Transfusions Hx Blood Disorders: No Physical Exam Vital Signs Vital Sign - Last 12Hours 06/16/16 12:27 Temp 98.3 Pulse 49 Resp 18 B/P 225/112 Pulse Ox 98 O2 Delivery Room Air Capillary Refill : Less Than 3 Seconds General Appearance: WD/WN no apparent distress HEENT: PERRL/EOMI pharynx normal other (TM'S WITH EFFUSIONS) Neck: non-tender full range of motion supple normal inspectionNo lymphadenopathy (R), No lymphadenopathy (L) Cardiovascular: normal peripheral pulses regular rate, rhythm no edema no JVD no murmur Respiratory: normal breath sounds no respiratory distress no accessory muscle use Gastrointestinal: normal bowel sounds non tender soft no organomegaly no pulsatile mass Back: normal inspection Extremities: normal range of motion non-tender normal inspection no pedal edema no calf tenderness normal capillary refill Psychiatric: alert oriented x 3 Crainal Nerves: normal hearing normal speech PERRL Coordination/Gait: normal finger to nose normal gait negative Romberg's sign Motor/Sensory: no motor deficit no sensory deficit no pronator drift Skin: normal color warm/dry Progress/Results/Core Measures Results/Orders Lab Results Laboratory Tests Test 06/16/16 12:43 Range/Units Activated Partial Thromboplast Time 28 24-35 SEC Alanine Aminotransferase (ALT/SGPT) 13 0-55 U/L Albumin 4.4 3.2-4.5 G/DL Alkaline Phosphatase 48 40-136 U/L Anion Gap 9 5-14 MMOL/L Aspartate Amino Transf (AST/SGOT) 15 5-34 U/L BUN/Creatinine Ratio 9 Basophils # (Auto) 0.1 0.0-0.1 10^3/uL Basophils (%) (Auto) 1 0-10 % Blood Urea Nitrogen 8 7-18 MG/DL Calcium Level 9.3 8.5-10.1 MG/DL Carbon Dioxide Level 25 21-32 MMOL/L Chloride Level 105 98-107 MMOL/L Creatinine 0.93 0.60-1.30 MG/DL Eosinophils # (Auto) 0.1 0.0-0.3 10^3/uL Eosinophils (%) (Auto) 1 0-10 % Estimat Glomerular Filtration Rate > 60 Glucose Level 97 70-105 MG/DL Hematocrit 40 35-52 % Hemoglobin 14.3 11.5-16.0 G/DL INR Comment 1.1 0.8-1.4 Lymphocytes # (Auto) 1.9 1.0-4.0 X 10^3 Lymphocytes (%) (Auto) 24 12-44 % Mean Corpuscular Hemoglobin 33 25-34 PG Mean Corpuscular Hemoglobin Concent 36 32-36 G/DL Mean Corpuscular Volume 92 80-99 FL Mean Platelet Volume 9.9 7.4-10.4 FL Monocytes # (Auto) 0.5 0.0-1.0 X 10^3 Monocytes (%) (Auto) 7 0-12 % Neutrophils # (Auto) 5.5 1.8-7.8 X 10^3 Neutrophils (%) (Auto) 68 42-75 % Platelet Count 219 130-400 10^3/uL Potassium Level 4.3 3.6-5.0 MMOL/L Prothrombin Time 13.6 12.2-14.7 SEC Red Blood Count 4.36 4.35-5.85 10^6/uL Red Cell Distribution Width 12.7 10.0-14.5 % Sodium Level 139 135-145 MMOL/L Total Bilirubin 0.8 0.1-1.0 MG/DL Total Protein 6.2 L 6.4-8.2 G/DL White Blood Count 8.1 4.3-11.0 10^3/uL My Orders Orders-MARJAN STOLL DO Saline Lock/Iv-Start (06/16/16 12:39) Ekg Tracing (06/16/16 12:39) Monitor-Rhythm Ecg Trace Only (06/16/16 12:39) Ct Head Wo (06/16/16 12:39) Cbc With Automated Diff (06/16/16 12:39) Comprehensive Metabolic Panel (06/16/16 12:39) Protime With Inr (06/16/16 12:39) Partial Thromboplastin Time (06/16/16 12:39) Chest 1 View, Ap/Pa Only (06/16/16 12:39) Enalaprilat Injection (Vasotec Injection (06/16/16 13:00) Ketorolac Injection (Toradol Injection) (06/16/16 14:00) Orphenadrine Injection (Norflex Injectio (06/16/16 14:00) Oxycodone/Apap 5/325mg Tablet (Percocet (06/16/16 15:00) Medications Given in ED Vital Signs/I&O Vital Sign - Last 12Hours 06/16/16 06/16/16 12:27 15:09 Temp 98.3 Pulse 49 50 Resp 18 18 B/P 225/112 Pulse Ox 98 97 O2 Delivery Room Air Blood Pressure Mean: 149 Progress Note : Progress Note BP DOWN AND HEADACHE EASING AT TIME OF DISMISSAL BP 154/86 PRIOR TO DISMISSAL. ECG Initial ECG Impression Time: 12:51 Initial ECG Rate: 46 Initial ECG Rhythm: S.Dom Initial ECG Comparisson: Unchanged Diagnostic Imaging Comments CXR--NO ACUTE PROCESS CT HEAD--NO ACUTE PROCESS, POST OP CHANGES PER RADIOLOGIST REPORTS @ 1339 Reviewed: Reviewed by Me Departure Impression Impression: Primary Impression: Headache Additional Impressions: Chronic headaches Uncontrolled hypertension Serous otitis media Disposition: 01 HOME, SELF-CARE Condition: Improved Departure-Patient Inst. Referrals: [facility] (PCP/Family) Primary Care Physician Patient Instructions: CHRONIC PAIN, Headache, Adult (DC), High Blood Pressure ( DC) Add. Discharge Instructions: INCREASE YOUR LISINOPRIL TO 40 MG DAILY LOW SODIUM DIET CONTINUE YOUR REGULAR MEDICATIONS PRESCRIBED FOLLOW UP WITH YOUR DR THIS WEEK FOR FURTHER CARE All discharge instructions reviewed with patient and/or family. Voiced understanding. Scripts Triamterene/Hydrochlorothiazid (Maxzide 37.5 mg-25 mg Tablet)1 Each Tablet1 Each PO DAILY #15 TAB Prov:MARJAN STOLL DO 06/16/16 MARJAN STOLL DO Jun 16, 2016 13:38
[2016-06-16] MEDS ORDERED: TRIA1TAB2 PO (13:54)
[2016-06-16] MEDS ORDERED: KETOROLAC 30 MG/ML VIAL IVP ONE (14:00)
[2016-06-16] MEDS ORDERED: ORPHENADRINE 60 MG/2 ML (NORFLEX) AMP IV ONE (14:00)
[2016-06-16] MEDS ORDERED: oxyCODONE/APAP 5/325MG (PERCOCET 5) TABLET PO ONE (15:00)
[2016-06-16 15:09] VITALS: BP 173/92
== END 2016-06-16 15:15 | disposition home or self-care (01) ==
LOC: EDUNIT# 12:07 → ER 12:09
DX: I16.0 Hypertensive urgency (principal); H65.193 Other acute nonsuppurative otitis media, bilateral; R51 Headache; F17.210 Nicotine dependence, cigarettes, uncomplicated; Z79.82 Long term (current) use of aspirin; Z79.899 Other long term (current) drug therapy
CPT/HCPCS: 36415; 70450; 71010; 80053; 85025; 85610; 85730; 93005; 93041; 96374; 96375

== ENCOUNTER 2016-08-08 14:04 | Emergency (ER) | payer MEDICAID ==
[~2016-08-08] VITALS: Ht 172.7 cm; Wt 59.9 kg
[~2016-08-08 14:04] MED LIST changes: +TRIA1TAB2 PO
--- NOTE | 2016-08-08 15:26 | Diagnostic Imaging Report ---
INDICATION: Cough and fever. EXAMINATION: PA and lateral chest. FINDINGS: The heart size and pulmonary vascularity are normal. The lungs are clear. There are no effusions or pneumothoraces. IMPRESSION: Negative chest. Dictated by: Dictated on workstation # [id number]
[2016-08-08 15:29] LABS: BASOPHILS % (AUTO) 0 % (0-10); EOSINOPHILS % (AUTO) 0 % (0-10); LYMPHOCYTES # (AUTO) 0.8 X 10^3 (1.0-4.0); LYMPHOCYTES % (AUTO) 14 % (12-44); MEAN CORPUSCULAR HEMOGLOBIN 32 PG (25-34); MEAN CORPUSCULAR HGB CONC 35 G/DL (32-36); MEAN CORPUSCULAR VOLUME 91 FL (80-99); MEAN PLATELET VOLUME 8.8 FL (7.4-10.4); MONOCYTES # (AUTO) 0.2 X 10^3 (0.0-1.0); MONOCYTES % (AUTO) 4 % (0-12); NEUTROPHILS # (AUTO) 4.7 X 10^3 (1.8-7.8); NEUTROPHILS % (AUTO) 81 % (42-75); PLATELET COUNT 225 10^3/uL (130-400); RED BLOOD COUNT 3.87 10^6/uL (4.35-5.85); RED CELL DISTRIBUTION WIDTH 12.4 % (10.0-14.5); WHITE BLOOD COUNT 5.8 10^3/uL (4.3-11.0)
[2016-08-08 15:50] LABS: ALBUMIN 4.6 G/DL (3.2-4.5); BILIRUBIN,TOTAL 0.4 MG/DL (0.1-1.0); CALCIUM 9.6 MG/DL (8.5-10.1); CREATININE SERUM 1.3 MG/DL (0.60-1.30); POTASSIUM 3.9 MMOL/L (3.6-5.0); TOTAL PROTEIN 6.6 G/DL (6.4-8.2); hs C REACTIVE PROTEIN 0.07 MG/DL (0.00-0.50)
--- NOTE | 2016-08-08 16:15 | ED Cough/URI ---
General Chief Complaint: Cough/Cold/Flu Symptoms Stated Complaint: COUGH,HEADACHE Nursing Triage Note: PT CO OF COLD COUGH AND FLU SX WAS SEEN THURSDAY AND PUT ON DOXYCLINE AND PREDNISONE. PT STATES HAS HAD LOW GRADE FEVER, COUGH AND EAR ACHE R EAR Source: patient Exam Limitations: no limitations History of Present Illness Time seen by provider: 16:13 Initial Comments This 50-year-old female presents with a history of cough congestion and low- grade fever and ear pain not better with doxycycline for the past 3 days. The patient denies associated nausea vomiting or diarrhea. Patient had no dysuria or frequency. Past medical history includes previous craniotomy for a cyst. Allergies and Home Medications Allergies Coded Allergies: Sulfa (Sulfonamide Antibiotics) (Verified Allergy, Unknown, 05/24/16) divalproex sodium (Verified Allergy, Unknown, 05/24/16) iodine (Verified Allergy, Unknown, 05/24/16) Home Medications Alprazolam 0.5 Mg Tablet, 0.5 MG PO TID, (Reported) Aspirin 81 Mg Tablet.dr, 81 MG PO, (Reported) Cholecalciferol (Vitamin D3) 400 Unit Capsule, 400 UNIT PO, (Reported) Cyanocobalamin 1,000 Mcg/Ml Inj, 1,000 MCG IJ, (Reported) Duloxetine HCl 60 Mg Capsule.dr, 60 MG PO, (Reported) Fluticasone Propionate 9.9 Ml [place].susp, 2 SPRAY NSEACH DAILY, #1 Prescribed by: BENJAMIN FARIA on 06/15/162047 Folic Acid 0.4 Mg Tablet, 0.4 MG PO, (Reported) Gabapentin 100 Mg Capsule, 100 MG PO, (Reported) Lisinopril 20 Mg Tablet, 20 MG PO DAILY, (Reported) Loratadine 10 Mg Tablet, 10 MG PO DAILY, #30 Prescribed by: BENJAMIN FARIA on 06/15/162047 Metoprolol Tartrate 25 Mg Tablet, 25 MG PO BID, (Reported) Ondansetron 4 Mg Tab.rapdis, 4 MG PO, (Reported) Oxycodone HCl/Acetaminophen 1 Each Tablet, 1 EACH PO, (Reported) Pravastatin Sodium 80 Mg Tablet, 80 MG PO, (Reported) Tizanidine HCl 4 Mg Capsule, 4 MG PO TID, (Reported) Triamterene/Hydrochlorothiazid 1 Each Tablet, 1 EACH PO DAILY, #15 Prescribed by: MARJAN STOLL on 06/16/16 1354 [Kcl] , (Reported) Constitutional: No chills, fever EENTM: ear pain Respiratory: cough Cardiovascular: No chest pain Gastrointestinal: No diarrhea, No nausea, No vomiting Genitourinary: no symptoms reported Musculoskeletal: No back pain Skin: No change in color, No rash Psychiatric/Neurological: Denies Anxiety, Denies Headache Hematologic/Lymphatic: No Symptoms Reported Immunological/Allergic: no symptoms reported Past Kunopnc-Yhisbg-Ffqypq Hx Patient Social History Alcohol Use: Denies Use Recreational Drug Use: No Type Used: Cigarettes Recent Foreign Travel: No Contact w/Someone Who Travel: No Recent Infectious Disease Expo: No Recent Hopitalizations: No Seasonal Allergies Seasonal Allergies: Yes Surgeries HX Surgeries: Yes Surgeries: Gallbladder, Hysterectomy, Neurological Respiratory Hx Respiratory Disorders: No Cardiovascular Hx Cardiac Disorders: Yes (MVP) Cardiac Disorders: High Cholesterol, Hypertension, Valvular Heart Disease Neurological Hx Neurological Disorders: Yes Neurological Disorders: Headaches /Migraines 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 Genitourinary Hx Genitourinary Disorders: No Gastrointestinal Hx Gastrointestinal Disorders: No Musculoskeletal Hx Musculoskeletal Disorders: No Endocrine Hx Endocrine Disorders: No HEENT HX ENT Disorders: No Cancer Hx Cancer: No Psychosocial Hx Psychiatric Problems: Yes Behavioral Health Disorders: Anxiety, Depression Integumentary HX Skin/Integumentary Disorder: No Blood Transfusions Hx Blood Disorders: No Reviewed Nursing Assessment Reviewed/Agree w Nursing PMH: Yes Physical Exam Vital Signs Vital Sign - Last 12Hours 08/08/16 14:35 Temp 98.1 Pulse 65 Resp 12 B/P (MAP) 126/76 Pulse Ox 98 Capillary Refill : Less Than 3 Seconds General Appearance: WD/WN, no apparent distress Eyes: Bilateral Eye Normal Inspection HEENT: normal ENT inspection, pharynx normal, other (bilateral scarring of the tympanic membranes) Neck: supple, normal inspection Respiratory: decreased breath sounds Cardiovascular: normal peripheral pulses, regular rate, rhythm Gastrointestinal: normal bowel sounds, non tender Extremities: normal range of motion, non-tender Neurologic/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: 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, no motor/sensory deficits, alert, normal mood/affect, oriented x 3 Skin: normal color, warm/dry Progress/Results/Core Measures Results/Orders Lab Results Laboratory Tests Test 08/08/16 15:20 Range/Units White Blood Count 5.8 4.3-11.0 10^3/uL Red Blood Count 3.87 L 4.35-5.85 10^6/uL Hemoglobin 12.4 11.5-16.0 G/DL Hematocrit 35 35-52 % Mean Corpuscular Volume 91 80-99 FL Mean Corpuscular Hemoglobin 32 25-34 PG Mean Corpuscular Hemoglobin Concent 35 32-36 G/DL Red Cell Distribution Width 12.4 10.0-14.5 % Platelet Count 225 130-400 10^3/uL Mean Platelet Volume 8.8 7.4-10.4 FL Neutrophils (%) (Auto) 81 H 42-75 % Lymphocytes (%) (Auto) 14 12-44 % Monocytes (%) (Auto) 4 0-12 % Eosinophils (%) (Auto) 0 0-10 % Basophils (%) (Auto) 0 0-10 % Neutrophils # (Auto) 4.7 1.8-7.8 X 10^3 Lymphocytes # (Auto) 0.8 L 1.0-4.0 X 10^3 Monocytes # (Auto) 0.2 0.0-1.0 X 10^3 Eosinophils # (Auto) 0.0 0.0-0.3 10^3/uL Basophils # (Auto) 0.0 0.0-0.1 10^3/uL Sodium Level 134 L 135-145 MMOL/L Potassium Level 3.9 3.6-5.0 MMOL/L Chloride Level 100 98-107 MMOL/L Carbon Dioxide Level 26 21-32 MMOL/L Anion Gap 8 5-14 MMOL/L Blood Urea Nitrogen 22 H 7-18 MG/DL Creatinine 1.30 0.60-1.30 MG/DL Estimat Glomerular Filtration Rate 43 BUN/Creatinine Ratio 17 Glucose Level 108 H 70-105 MG/DL Calcium Level 9.6 8.5-10.1 MG/DL Total Bilirubin 0.4 0.1-1.0 MG/DL Aspartate Amino Transf (AST/SGOT) 11 5-34 U/L Alanine Aminotransferase (ALT/SGPT) 11 0-55 U/L Alkaline Phosphatase 46 40-136 U/L C-Reactive Protein High Sensitivity 0.07 0.00-0.50 MG/DL Total Protein 6.6 6.4-8.2 G/DL Albumin 4.6 H 3.2-4.5 G/DL My Orders Orders - NOE ROOT MD Cbc With Automated Diff (08/08/16 14:55) Comprehensive Metabolic Panel (08/08/16 14:55) Hs C Reactive Protein (08/08/16 14:55) Chest Pa/Lat (2 View) (08/08/16 14:55) Vital Signs/I&O Vital Sign - Last 12Hours 08/08/16 14:35 Temp 98.1 Pulse 65 Resp 12 B/P (MAP) 126/76 Pulse Ox 98 Blood Pressure Mean: 93 Progress Note : Time: 16:17 Progress Note The patient's CBC was unremarkable. Her CRP was not elevated. Patient was given a gram of Rocephin for her acute URI. I discussed findings with the patient's family. Treatment plan for close follow -up with her primary care physician, a Z-Antonio over the weekend, and hydrocodone for her upper respiratory discomfort. Departure Impression Impression: Primary Impression: Fever Qualified Codes: R50.9 - Fever, unspecified Additional Impressions: Upper respiratory infection Qualified Codes: J06.9 - Acute upper respiratory infection, unspecified Cough Disposition: HOME, SELF-CARE Condition: Unchanged Departure-Patient Inst. Decision time for Depature: 16:18 Referrals: [facility] (PCP/Family) Primary Care Physician Patient Instructions: Bacterial Upper Respiratory Infection, Adult (DC) Add. Discharge Instructions: Zithromax and hydrocodone as prescribed. Close follow-up with her doctor Thursday. Return if any problems. All discharge instructions reviewed with patient and/or family. Voiced understanding. NOE ROOT MD August 08, 2016 16:15
[2016-08-08] MEDS ORDERED: LIDOCAINE PF 1% 5 ML (XYLOCAINE) AMP ONE (16:16)
[2016-08-08] MEDS ORDERED: cefTRIAXone 1 GM (ROCEPHIN) VIAL ONE (16:16)
[2016-08-08 16:27] VITALS: BP 126/76
== END 2016-08-08 16:40 | disposition home or self-care (01) ==
LOC: EDUNIT# 14:04 → ER 14:06
DX: J06.9 Acute upper respiratory infection, unspecified (principal); R05 Cough; R50.9 Fever, unspecified; I10 Essential (primary) hypertension; Z79.899 Other long term (current) drug therapy; Z79.82 Long term (current) use of aspirin
CPT/HCPCS: 36415; 71020; 80053; 85025; 86141; 96372; 99282

== ENCOUNTER → 2016-10-07 | Emergency (ER) | payer MEDICAID ==
[~2016-10-07] VITALS: Ht 172.7 cm; Wt 60.8 kg
[~2016-10-07] MED LIST changes: +ALPRAZolam 0.25 MG (XANAX) TAB PO ONE; +DIAZ5TAB PO; +ZOLP10TA5 PO; +oxyCODONE/APAP 5/325MG (PERCOCET 5) TABLET PO STA
[2016-10-07 11:40] VITALS: BP 168/84
--- NOTE | 2016-10-07 11:57 | ED Psychosocial ---
General Chief Complaint: Psych/Social Disorder Stated Complaint: PSYCHOLOGICAL ISSUES Nursing Triage Note: PT CO OF BEING DEPRESSED, STATES CRYING ALL THE TIME, HAS NEW HEALTH ISSURE AND IS CURRENTLY IN ALOT OF PAIN 9/10 BACK. PT STATES BROKE PAIN CONTRACT WITH WHEN WENT TO ED FOR UNCONTROLLABLE PAIN. PT HAS HX OF BRAIN TUMOR. STATES DONT FEEL WELL MENTALLY Source: patient Exam Limitations: no limitations History of Present Illness Time seen by provider: 11:57 Initial Comments 51-year-old female patient presents to the emergency Department with reports of feeling depressed. Patient states she was seen yesterday by Amish Nichols in [place] to establish care. States she cried all the way home from the appointment. Was previously seeing Leslie Heller. Patient was told she had broken the pain contract with [facility]; therefore, was unable to receive further narcotic prescriptions from [facility]. Patient reports chronic low back pain. Patient states today she feels anxious and has been crying the majority of the day. Patient does have a history of a brain tumor. Was told yesterday that she has spondylolisthesis and spinal stenosis in her low back. Patient reports feeling suicidal. Denies having a plan. Timing/Duration: yesterday, getting worse Allergies and Home Medications Allergies Coded Allergies: Sulfa (Sulfonamide Antibiotics) (Verified Allergy, Unknown, 05/24/16) divalproex sodium (Verified Allergy, Unknown, 05/24/16) iodine (Verified Allergy, Unknown, 05/24/16) Home Medications Alprazolam 0.5 Mg Tablet, 0.5 MG PO TID, (Reported) Aspirin 81 Mg Tablet.dr, 81 MG PO, (Reported) Cholecalciferol (Vitamin D3) 400 Unit Capsule, 400 UNIT PO, (Reported) Cyanocobalamin 1,000 Mcg/Ml Inj, 1,000 MCG IJ, (Reported) Diazepam 5 Mg Tablet, 5 MG PO BID, (Reported) Fluticasone Propionate 9.9 Ml [place].susp, 2 SPRAY NSEACH DAILY, #1 Prescribed by: BENJAMIN FARIA on 06/15/162047 Folic Acid 0.4 Mg Tablet, 0.4 MG PO, (Reported) Lisinopril 20 Mg Tablet, 20 MG PO DAILY, (Reported) Loratadine 10 Mg Tablet, 10 MG PO DAILY, #30 Prescribed by: BENJAMIN FARIA on 06/15/162047 Metoprolol Tartrate 25 Mg Tablet, 25 MG PO BID, (Reported) Oxycodone HCl/Acetaminophen 1 Each Tablet, 1 EACH PO, (Reported) Pravastatin Sodium 80 Mg Tablet, 80 MG PO, (Reported) Triamterene/Hydrochlorothiazid 1 Each Tablet, 1 EACH PO DAILY, #15 Prescribed by: MARJAN STOLL on 06/16/16 1354 Zolpidem Tartrate 10 Mg Tablet, 10 MG PO DAILY, (Reported) [Kcl] , (Reported) Constitutional: No dizziness, No fever, No malaise, No weakness EENTM: no symptoms reported Respiratory: No cough, No short of breath Cardiovascular: No chest pain, No palpitations Gastrointestinal: no symptoms reported Genitourinary: no symptoms reported Musculoskeletal: see HPI, back pain ((chronic low back pain)) Skin: no symptoms reported Psychiatric/Neurological: See HPI, Anxiety, Depressed, Denies Headache, Denies Numbness, Denies Paresthesia, Denies Tingling, Denies Weakness All Other Systems Reviewed Negative Unless Noted: Yes (Negative excepted noted.) Past Pwahxub-Zkrzny-Tnfnuy Hx Patient Social History Alcohol Use: Denies Use Recreational Drug Use: No Smoking Status: Current Everyday Smoker Type Used: Cigarettes Recent Foreign Travel: No Contact w/Someone Who Travel: No Recent Infectious Disease Expo: No Recent Hopitalizations: No Seasonal Allergies Seasonal Allergies: Yes Surgeries HX Surgeries: Yes Surgeries: Gallbladder, Hysterectomy, Neurological Respiratory Hx Respiratory Disorders: No Cardiovascular Hx Cardiac Disorders: Yes (MVP) Cardiac Disorders: High Cholesterol, Hypertension, Valvular Heart Disease Neurological Hx Neurological Disorders: Yes Neurological Disorders: Headaches /Migraines 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 Genitourinary Hx Genitourinary Disorders: No Gastrointestinal Hx Gastrointestinal Disorders: No Musculoskeletal Hx Musculoskeletal Disorders: Yes Musculoskeletal Disorders: Chronic Back Pain ((spondylolisthesis and spinal stenosis)) Endocrine Hx Endocrine Disorders: No HEENT HX ENT Disorders: No Cancer Hx Cancer: No Psychosocial Hx Psychiatric Problems: Yes Behavioral Health Disorders: Anxiety, Depression Integumentary HX Skin/Integumentary Disorder: No Blood Transfusions Hx Blood Disorders: No Reviewed Nursing Assessment Reviewed/Agree w Nursing PMH: Yes Family Medical History Significant Family History: No Pertinent Family Hx Physical Exam Vital Signs Vital Sign - Last 12Hours 10/07/16 11:40 Temp 97.9 Pulse 71 Resp 18 B/P (MAP) 168/84 Pulse Ox 100 Capillary Refill : Less Than 3 Seconds General Appearance: WD/WN, mild distress (patient is tearful at the time of exam.) HEENT: PERRL/EOMI, pharynx normal Neck: supple, normal inspection Respiratory: lungs clear, normal breath sounds, no respiratory distress Cardiovascular: regular rate, rhythm, no edema, no murmur Gastrointestinal: non tender, soft Extremities: no pedal edema, normal capillary refill Neurologic/Psychiatric: fur glosser II-XII nml as tested, no motor/sensory deficits, alert, oriented x 3, depressed affect (tearful.) Appearance/Memory: appropriate appearance, appropriate insight, neat, no memory impairment Behavior/Eye Contact: cooperative, normal speech, avoids eye contact Thoughts/Hallucinations: normal thought pattern, no apparent hallucination Skin: normal color, warm/dry Progress/Results/Core Measures Results/Orders Lab Results Laboratory Tests Test 10/07/16 12:25 10/07/16 12:39 Range/Units Urine Color YELLOW Urine Clarity SLIGHTLY CLOUDY Urine pH 6 5-9 Urine Specific [place] 1.010 L 1.016-1.022 Urine Protein 1+ H NEGATIVE Urine Glucose (UA) NEGATIVE NEGATIVE Urine Ketones NEGATIVE NEGATIVE Urine Nitrite NEGATIVE NEGATIVE Urine Bilirubin NEGATIVE NEGATIVE Urine Urobilinogen NORMAL NORMAL MG/DL Urine Leukocyte Esterase 1+ H NEGATIVE Urine RBC (Auto) 1+ H NEGATIVE Urine RBC 0-2 /HPF Urine WBC 0-2 /HPF Urine Squamous Epithelial Cells 5-10 /HPF Urine Crystals NONE /LPF Urine Bacteria TRACE /HPF Urine Casts PRESENT /LPF Urine Hyaline Casts 5-10 H /LPF Urine Mucus NEGATIVE /LPF Urine Culture Indicated YES Urine Opiates Screen NEGATIVE NEGATIVE Urine Oxycodone Screen POSITIVE H NEGATIVE Urine Methadone Screen NEGATIVE NEGATIVE Urine Propoxyphene Screen NEGATIVE NEGATIVE Urine Barbiturates Screen NEGATIVE NEGATIVE Ur Tricyclic Antidepressants Screen POSITIVE H NEGATIVE Urine Phencyclidine Screen NEGATIVE NEGATIVE Urine Amphetamines Screen NEGATIVE NEGATIVE Urine Methamphetamines Screen NEGATIVE NEGATIVE Urine Benzodiazepines Screen POSITIVE H NEGATIVE Urine Cocaine Screen NEGATIVE NEGATIVE Urine Cannabinoids Screen NEGATIVE NEGATIVE White Blood Count 6.5 4.3-11.0 10^3/uL Red Blood Count 3.56 L 4.35-5.85 10^6/uL Hemoglobin 11.5 11.5-16.0 G/DL Hematocrit 33 L 35-52 % Mean Corpuscular Volume 92 80-99 FL Mean Corpuscular Hemoglobin 32 25-34 PG Mean Corpuscular Hemoglobin Concent 35 32-36 G/DL Red Cell Distribution Width 13.1 10.0-14.5 % Platelet Count 269 130-400 10^3/uL Mean Platelet Volume 9.2 7.4-10.4 FL Neutrophils (%) (Auto) 65 42-75 % Lymphocytes (%) (Auto) 24 12-44 % Monocytes (%) (Auto) 7 0-12 % Eosinophils (%) (Auto) 2 0-10 % Basophils (%) (Auto) 1 0-10 % Neutrophils # (Auto) 4.2 1.8-7.8 X 10^3 Lymphocytes # (Auto) 1.6 1.0-4.0 X 10^3 Monocytes # (Auto) 0.5 0.0-1.0 X 10^3 Eosinophils # (Auto) 0.1 0.0-0.3 10^3/uL Basophils # (Auto) 0.1 0.0-0.1 10^3/uL Sodium Level 133 L 135-145 MMOL/L Potassium Level 4.1 3.6-5.0 MMOL/L Chloride Level 98 98-107 MMOL/L Carbon Dioxide Level 26 21-32 MMOL/L Anion Gap 9 5-14 MMOL/L Blood Urea Nitrogen 8 7-18 MG/DL Creatinine 1.17 0.60-1.30 MG/DL Estimat Glomerular Filtration Rate 49 BUN/Creatinine Ratio 7 Glucose Level 104 70-105 MG/DL Calcium Level 9.5 8.5-10.1 MG/DL Total Bilirubin 0.7 0.1-1.0 MG/DL Aspartate Amino Transf (AST/SGOT) 17 5-34 U/L Alanine Aminotransferase (ALT/SGPT) 18 0-55 U/L Alkaline Phosphatase 42 40-136 U/L Total Protein 6.3 L 6.4-8.2 GM/DL Albumin 4.3 3.2-4.5 GM/DL Free Thyroxine 0.95 0.70-1.48 NG/DL TSH Tama Testing 0.21 L 0.35-4.94 UIU/ML Salicylates Level < 5.0 L 5.0-20.0 MG/DL Acetaminophen Level 11 10-30 UG/ML Serum Alcohol < 10 <10 MG/DL Micro Results Microbiology 10/07/16 Urine Culture - Preliminary, Resulted My Orders Orders - ROGER HOLT Ua Culture If Indicated (10/07/16 12:12) Cbc With Automated Diff (10/07/16 12:12) Comprehensive Metabolic Panel (10/07/16 12:12) Alcohol (10/07/16 12:12) Drug Screen Stat (Urine) (10/07/16 12:12) Acetaminophen (10/07/16 12:12) Salicylate (10/07/16 12:12) Ekg Tracing (10/07/16 12:12) Thyroid Analyzer (10/07/16 12:12) Urine Culture (10/07/16 12:25) General/Regular (10/07/16 Lunch) Alprazolam Tablet (Xanax Tablet) (10/07/16 13:30) Free T4 (Free Thyroxine) (10/07/16 12:39) Oxycodone/Apap 5/325mg Tablet (Percocet (10/07/16 14:48) Medications Given in ED Vital Signs/I&O Blood Pressure Mean: 112 ECG Initial ECG Impression Date: Oct 07, 2016 Initial ECG Impression Time: 13:11 Initial ECG Rate: 59 Initial ECG Intervals: Normal Initial ECG Impression: Normal Initial ECG Comparisson: Unchanged Comment sinus bradycardia similar to previous ECG from 06/16/16. ECG reviewed by Dr. Adhikari. Departure Communication Progress Notes all laboratory and diagnostic findings discussed with the patient. Patient agreeable to inpatient treatment. Patient given 1 dose of percocet in the ED as patient states she takes it at scheduled times during the day. voicemail left for [facility] one call. [place] one call contacted. Female bed available. Dr. Almendarez accepts to her behavioral health unit for inpatient treatment. Plan for transfer discussed with the patient. patient voices understanding and agrees with the treatment plan. Dr. Adhikari notified of plan for admission. Impression Impression: Primary Impression: Suicidal ideation Additional Impressions: Depression Qualified Codes: F32.9 - Major depressive disorder, single episode, unspecified Abnormal thyroid function test Disposition: 65 XFER TO PSYCH HOSP/UNIT Condition: Stable Transfer Transfer Notes Dr. Almendarez accepts patient to her behavioral health service at the [facility]. Transfer Time: 15:50 Transfer Facility: [facility]. Method of Transfer: jasper colin (psych transport) Departure-Patient Inst. Referrals: NO,LOCAL PHYSICIAN (PCP/Family) Primary Care Physician ROGER HOLT Oct 07, 2016 11:57
[2016-10-07 12:31] LABS: BILIRUBIN,URINE NEGATIVE (NEGATIVE); KETONES,URINE NEGATIVE (NEGATIVE); LEUKOCYTE ESTERASE ,URINE 1+ (NEGATIVE); NITRITE,URINE NEGATIVE (NEGATIVE); PH,URINE 6 (5-9); PROTEIN,URINE 1+ (NEGATIVE); UROBILINOGEN,URINE NORMAL (NORMAL)
[2016-10-07 12:42] LABS: WBC,URINE 0-2 /HPF
[2016-10-07 12:46] LABS: BASOPHILS # (AUTO) 0.1 10^3/uL (0.0-0.1); BASOPHILS % (AUTO) 1 % (0-10); EOSINOPHILS # (AUTO) 0.1 10^3/uL (0.0-0.3); EOSINOPHILS % (AUTO) 2 % (0-10); LYMPHOCYTES # (AUTO) 1.6 X 10^3 (1.0-4.0); LYMPHOCYTES % (AUTO) 24 % (12-44); MEAN CORPUSCULAR HEMOGLOBIN 32 PG (25-34); MEAN CORPUSCULAR HGB CONC 35 G/DL (32-36); MEAN CORPUSCULAR VOLUME 92 FL (80-99); MEAN PLATELET VOLUME 9.2 FL (7.4-10.4); MONOCYTES # (AUTO) 0.5 X 10^3 (0.0-1.0); MONOCYTES % (AUTO) 7 % (0-12); NEUTROPHILS # (AUTO) 4.2 X 10^3 (1.8-7.8); NEUTROPHILS % (AUTO) 65 % (42-75); PLATELET COUNT 269 10^3/uL (130-400); RED BLOOD COUNT 3.56 10^6/uL (4.35-5.85); RED CELL DISTRIBUTION WIDTH 13.1 % (10.0-14.5); WHITE BLOOD COUNT 6.5 10^3/uL (4.3-11.0)
[2016-10-07 13:04] LABS: ACETAMINOPHEN 11 UG/ML (10-30); ALANINE AMINOTRANSFERASE 18 U/L (0-55); ALBUMIN 4.3 GM/DL (3.2-4.5); ALCOHOL < 10 MG/DL (<10); ANION GAP 9 MMOL/L (5-14); ASPARTATE AMINO TRANSFERASE 17 U/L (5-34); BILIRUBIN,TOTAL 0.7 MG/DL (0.1-1.0); BLOOD UREA NITROGEN 8 MG/DL (7-18); BUN/CREATININE RATIO 7; CALCIUM 9.5 MG/DL (8.5-10.1); CARBON DIOXIDE 26 MMOL/L (21-32); CHLORIDE 98 MMOL/L (98-107); CREATININE SERUM 1.17 MG/DL (0.60-1.30); GFR ESTIMATED 49; GLUCOSE 104 MG/DL (70-105); POTASSIUM 4.1 MMOL/L (3.6-5.0); SALICYLATE < 5.0 MG/DL (5.0-20.0); SODIUM 133 MMOL/L (135-145); TOTAL PROTEIN 6.3 GM/DL (6.4-8.2)
== END ==
LOC: EDUNIT# 11:32 → ER 11:35
DX: R45.851 Suicidal ideations (principal); F32.9 Major depressive disorder, single episode, unspecified; R94.6 Abnormal results of thyroid function studies; E78.00 Pure hypercholesterolemia, unspecified; I10 Essential (primary) hypertension; G43.909 Migraine, unspecified, not intractable, without status migrainosus; M48.00 Spinal stenosis, site unspecified; F41.9 Anxiety disorder, unspecified; F17.210 Nicotine dependence, cigarettes, uncomplicated; Z79.82 Long term (current) use of aspirin
CPT/HCPCS: 36415; 80053; 80306; 80320; 80329; 81000; 84439; 84443; 85025; 87088; 93005

== ENCOUNTER → 2016-12-08 | Outpatient (CLI) | payer MEDICAID ==
[~2016-12-08] MED LIST changes: -ALPRAZolam 0.25 MG (XANAX) TAB PO ONE; -oxyCODONE/APAP 5/325MG (PERCOCET 5) TABLET PO STA
--- NOTE | 2016-12-09 19:58 | Diagnostic Imaging Report ---
Bilateral screening mammogram 2D views with tomosynthesis. The current study was also evaluated with a Computer Aided Detection (CAD) system. INDICATION: Screening. No current complaints stated on the questionnaire. COMPARISON: None. This is a baseline study. FINDINGS: The breasts are composed of heterogeneously dense parenchyma which may decrease mammographic sensitivity. Occasional punctate calcifications are seen. No focal mass or architectural distortion is identified. IMPRESSION: No mammographic evidence of malignancy. Annual screening mammogram is recommended. ACR BI-RADS Category 2: Benign findings. Result letter will be mailed to the patient. Note: At least 10% of breast cancer is not imaged by mammography. Dictated by: Dictated on workstation # [id number]
== END ==
LOC: RAD 11:07
PROVIDERS: ATTEND Nurse Practitioner Family
DX: Z12.31 Encounter for screening mammogram for malignant neoplasm of breast (principal)
CPT/HCPCS: 77067

== ENCOUNTER → 2017-04-06 | Outpatient (CLI) | payer MEDICAID ==
[~2017-04-06] MED LIST changes: +ALPR0.5T7 PO; +AMOX500C2 PO; +DULO30CA48 PO; +IBUP-30 PO; +LISI40TA PO; +POTA10TA36 PO; +TIZA4TAB3 PO
== END ==
LOC: LABNPT 10:39
PROVIDERS: ATTEND Otolaryngology Otolaryngology/Facial Plastic Surgery
DX: J34.89 Other specified disorders of nose and nasal sinuses (principal)

== ENCOUNTER → 2017-04-23 | Outpatient (CLI) | payer MEDICAID | LOC: LABNPT 12:47 | PROVIDERS: ATTEND Otolaryngology Otolaryngology/Facial Plastic Surgery | DX: R09.82 Postnasal drip (principal); Z98.890 Other specified postprocedural states | CPT/HCPCS: 86335 ==

== ENCOUNTER 2017-06-19 09:07 | Emergency (ER) | payer MEDICAID ==
[~2017-06-19] VITALS: Ht 172.7 cm; Wt 63.5 kg
--- OUTSIDE RECORDS SUMMARY | 2017-06-19 09:13 | XMS REPORT | Continuity of Care Document ---
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
--- OUTSIDE RECORDS SUMMARY | 2017-06-19 09:14 | XMS REPORT ---
Author Author ARVIN GOMES [facility] Address [address] [place] [address] Care Team Providers Care Gas Plant Technician Name Role Phone ARVIN GOMES Unavailable PROBLEMS Type Condition ICD9-CM Code [id number] Code Onset Dates Condition Status SNOMED Code Problem Primary insomnia F51.01 Active 5535815 Problem Major depressive disorder, recurrent episode, moderate F33.1 Active 543137243 Problem Anxiety, generalized F41.1 Active 57256641 Problem Adjustment disorder with mixed anxiety and depressed mood F43.23 Active 37367134 Problem Intractable migraine without aura and without status migrainosus G43.019 Active 316021885 Problem Chronic pain due to trauma G89.21 Active 778297710 Problem Other headache syndrome G44.89 Active 097241047 Problem Seasonal allergic rhinitis, unspecified allergic rhinitis trigger J30.2 Active 593988008 Problem Essential hypertension I10 Active 51511281 Problem Pernicious anemia D51.0 Active 46078985 Problem 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 Active 53587623 Problem Hypokalemia E87.6 Active 31719985 Problem Other hyperlipidemia E78.4 Active 27269660 Problem Empty sella syndrome E23.6 Active 447558738 Problem Other chronic postprocedural pain G89.28 Active 988037968 ALLERGIES No Information ENCOUNTERS Encounter Location Date Diagnosis [facility] [address] [facility] [id number] [address] May, [place] [id number] [place] [address] May, [place] [address], [place] [address] 09 May, 2017 Osteoarthritis of spine with radiculopathy, lumbosacral region M47.27 and Primary insomnia F51.01 [place] [address] [place] [id number] [place] [address]118[address] May, Osteoarthritis of spine with radiculopathy, lumbosacral region M47.27 and Anxiety, generalized F41.1 [place] [address] [place] [id number] [place] [address] May, [address] [address] Apr, [place] [address] [address] Apr, [address] [address] Apr, Anxiety, generalized F41.1 ; Major depressive disorder, recurrent episode, moderate F33.1 ; Moderate episode of recurrent major depressive disorder F33.1 and Adjustment disorder with mixed anxiety and depressed mood F43.23 [place] [id number] [place] [address]93- 7548 Apr, Major depressive disorder, recurrent episode, moderate F33.1 ; Anxiety, generalized F41.1 ; Essential hypertension I10 ; Primary insomnia F51.01 and 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 [place] [id number] [place] [address] 11131- 7465 09 Apr, 2017 Other chest pain R07.89 ; Sinus bradycardia R00.1 ; Essential hypertension I10 and Other hyperlipidemia E78.4 [place] [id number] [place] [address] 45726- 6610 08 Apr, 2017 Primary insomnia F51.[address] [address] Apr, [place] [id number] [place] [address] 13078- 9220 Apr, Anxiety, generalized F41.[address] [address] Apr, Osteoarthritis of spine with radiculopathy, lumbosacral region M47.27 [place] [address] [address] Mar, Intractable migraine without aura and without status migrainosus G43.019 and Dyshidrotic hand dermatitis L30.1 [facility] [address] [address] Mar, Skin infection L08.9 [place] [address] [address] Mar, [facility] [place] [address] [address] Mar, Skin lesion L98.9 [place] [address] [address]- 7[address] Mar, Primary insomnia F51.01 and Anxiety, generalized F41.1 [place] [address] 6[address]- 278[address] Mar, Osteoarthritis of spine with radiculopathy, lumbosacral region M47.27 [place] [address] [address] Feb, [place] [address] 38[address]- 27[address] Feb, [place] [address] [address]- [address] Feb, Hypokalemia E87.6 [place] [address] [address]114- 6312 Feb, Intractable migraine without aura and without status migrainosus G43.019 and Other chest pain R07.89 [place] [address] [address]- 7995 Feb, [place] [address] [place] [address] Feb, Osteoarthritis of spine with radiculopathy, lumbosacral region M47.27 [place] [address] 22423- 39[address] Feb, Hypokalemia E87.6 [place] [address] 94327- 4186 Feb, [place] [address] [address]47- 9[address] Feb, Primary insomnia F51.01 and Anxiety, generalized F41.1 [facility] [place] [address] [address] Feb, Acute suppurative otitis media of both ears without spontaneous rupture of tympanic membranes, recurrence not specified H66.003 [place] [address] [address]12- 7[address] Feb, [place] [address] [address]- [address] Jan, Osteoarthritis of spine with radiculopathy, lumbosacral region M47.27 [place] [address] 28[address]- [address] Jan, Primary insomnia F51.01 and Anxiety, generalized F41.1 [place] [address] [place] [id number] [place] [address] 94347- 0930 Jan, Chronic pain due to trauma G89.21 ; Left otitis media with effusion H65.92 and Otalgia of left ear H92.02 [facility] [address] [place] [id number] [place] [address] Jan, Bilateral otitis media with effusion H65.93 [place] [address] [place] [id number] [place] [address] 21178- 8745 Dec, [place] [address] 02761- 6769 Dec, Primary insomnia F51.01 and Anxiety, generalized F41.1 [facility] [address] [place] [id number] [place] [address] 43925- 4687 Nov, [facility] [address] [place] [id number] [place] [address] 35718- 1830 Nov, [facility] [address] [address]- [address] Nov, Anxiety, generalized F41.1 [place] [address] [place] [id number] [place] [address] 27907- 7479 Nov, Pernicious anemia D51.0 [place] [address] [place] [id number] [place] [address] 65530- 6047 Nov, Primary insomnia F51.01 [place] [address] [place] [id number] [place] [address] 29330- 7992 Nov, Encounter for well woman exam with routine gynecological exam Z01.419 ; Screening breast examination Z12.31 and Otalgia of left ear H92.02 [place] [address] [place] [id number] [place] [address] 56630- 4751 Oct, [facility] [address] [place] [id number] [place] [address] 9[address]40 -[address]853 Oct, Insect bite (nonvenomous) of right upper arm, initial encounter S40.861A [place] [address] [place] [id number] [place] [address] 23387- 9765 Oct, Pernicious anemia D51.0 [facility] [address] [place] [id number] [place] [address] 81305- 4026 Oct, Anxiety, generalized F41.1 and Pernicious anemia D51.0 [place] [address] [place] [id number] [place] [address] 93319- 9443 Oct, Encounter to establish care with new doctor Z76.89 ; Moderate episode of recurrent major depressive disorder F33.1 ; Empty sella syndrome E23.6 ; Seasonal allergic rhinitis, unspecified allergic rhinitis trigger J30.2 ; Essential hypertension I10 and Osteoarthritis of spine with radiculopathy, lumbosacral region M47.27 [place] [address] [place] [id number] [place] [address] 65727- 8620 Aug, [place] [address] [place] [id number] [place] [address] 23162- 8819 Aug, [place] [address] [place] [id number] [place] [address] 14292- 7598 Aug, Anxiety, generalized F41.1 [place] [address] [place] [id number] [place] [address] 89334- 6626 08 Aug, 2016 [place] [address] [place] [id number] [place] [address] 49847- 1021 Aug, Primary insomnia F51.01 ; Essential hypertension I10 ; Empty sella syndrome E23.6 and Chronic pain due to trauma G89.21 [place] [address] [place] [id number] [place] [address] 65590- 8980 July, Primary insomnia F51.01 [facility] [address] [place] [id number] [place] [address] 00672 -[address]74 July, Seasonal allergic rhinitis, unspecified allergic rhinitis trigger J30.2 and Acute suppurative otitis media of right ear without spontaneous rupture of tympanic membrane, recurrence not specified H66.001 [facility] [address] [place] [id number] [place] [address] 98372 -[address]279 July, Acute suppurative otitis media of left ear without spontaneous rupture of tympanic membrane, recurrence not specified H66.002 [place] [address] [place] [id number] [place] [address] 56648- 7268 July, [place] [address] [place] [id number] [place] [address] 38387- 9019 July, Anxiety, generalized F41.1 [place] [address] [place] [id number] [place] [address] 36372- 6603 Jun, [facility] [address] [place] [id number] [place] [address] 71192- 9856 Jun, Primary insomnia F51.01 [facility] [address] 44227- 0970 Jun, Empty sella syndrome E23.6 ; Primary insomnia F51.01 and Hypokalemia E87.6 [facility] [address] 57104- 7284 Jun, [facility] [address] 31306- 9963 Jun, [facility] [address] 90397- 4686 Jun, Empty sella syndrome E23.6 [facility] [address] 60050- 1643 Jun, Anxiety, generalized F41.1 [facility] [address] [place] [id number] [place] [address] 04199- 9015 Jun, [facility] [address] 36252- 7370 Jun, Empty sella syndrome E23.6 [facility] [address] [place] [id number] [place] [address] 51274- 2482 May, [facility] [address] [place] [id number] [place] [address] 39023- 1312 May, [facility] [address] [place] [id number] [place] [address] 82707- 3360 May, Empty sella syndrome E23.6 [facility] [address] [place] [id number] [place] [address] 04805- 5380 May, [facility] [address] [place] [id number] [place] [address] 16707- 9133 May, [facility] [address] [place] [address]- 9506 23 May, 2016 Primary insomnia F51.01 [place] [address] 77326- 5062 May, [facility] [address] 40945- 6450 20 May, 2016 Nausea R11.0 ; Other headache syndrome G44.89 and Malignant hypertension I10 [place] [address] 90268- 9928 07 May, 2016 Anxiety, generalized F41.1 [place] [address] 72654- 2653 28 Apr, 2016 Major depressive disorder, recurrent episode, moderate F33.1 [place] [address] 66674- 3015 28 Apr, 2016 Moderate episode of recurrent major depressive disorder F33.1 [place] [address] [place] [id number] [place] [address] 62854- 1998 27 Apr, 2016 Other chronic postprocedural pain G89.28 [place] [address] 72680- 3608 15 Apr, 2016 Major depressive disorder, recurrent episode, moderate F33.1 [place] [address] [place] [id number] [place] [address] 80036- 8196 07 Apr, 2016 Anxiety, generalized F41.1 [place] [address] [place] [id number] [place] [address] 29743- 6430 03 Apr, 2016 [place] [address] [place] [id number] [place] [address] 44166- 9841 Mar, Other chronic postprocedural pain G89.28 ; Status post craniotomy Z98.890 ; Encounter for drug screening Z02.83 and Hematuria R31.9 [place] [address] [place] [id number] [place] [address] 14220- 1092 Mar, Major depressive disorder, recurrent episode, moderate F33.1 [place] [address] [place] [address] 86811- 8970 Mar, [place] [address] [place] [id number] [place] [address] 77274- 4963 Mar, Anxiety, generalized F41.1 [place] [id number] [place] [address] 89016- 7650 Mar, Anxiety, generalized F41.1 and Pernicious anemia D51.0 [place] [id number] [place] [address] 91580- 3198 Mar, 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 and Status post craniotomy Z98.890 [place] [id number] [place] [address] 10238- 4647 Mar, Primary insomnia F51.01 [place] [id number] [place] [address] 77500- 5245 Feb, [place] [id number] [place] [address] 98781- 9882 Feb, Encounter to establish care Z76.89 ; Status post craniotomy Z98.890 ; 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 ; Hypokalemia E87.6 ; Essential hypertension I10 ; Other hyperlipidemia E78.4 ; Pernicious anemia D51.0 ; Other depression F32.89 and Chronic nausea R11.0 IMMUNIZATIONS No Known Immunizations SOCIAL HISTORY Never Assessed REASON FOR VISIT Controlled Med Refill PLAN OF CARE VITAL SIGNS MEDICATIONS Medication Instructions Dosage Frequency Start Date End Date Duration Status Oxycodone-Acetaminophen 5-325 MG Orally every 6 hrs 1 tablet as needed 6h Aug, 28 days Active RESULTS No Results PROCEDURES No Known procedures INSTRUCTIONS MEDICATIONS ADMINISTERED No Known Medications MEDICAL (GENERAL) HISTORY Type Description Date Medical History HTN Medical History Hypokalemia since cranioplasty in may 2015 Medical History Insomnia longstanding Ambien works at [employer] Medical History Hypercholesterolemia Medical History prenicious anemia gives herself the shots Medical History chronic nausea after craniotomy Medical History depression Medical History Empty sella syndrome Medical History mild thoracic DDS-age appropriate- MRI 08/2016- 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 Medical History Left ventricular hypertrophy by electrocardiogram Surgical History hysterectomy partial Cyst on ovaries 2000 Surgical History oophrectomy both are gone 2008 Surgical History cholesectomy 12/2015 Surgical History cranioplasty screws were loose and plate started to shift 2015 Surgical History crainiotomy due to colloid cyst in 3rd ventricle 04/2014 Surgical History kidney stone removal 1998 Surgical History tonsilectomy at age 6yrs Hospitalization History surgery only Hospitalization History . [facility] 02/2017
--- OUTSIDE RECORDS SUMMARY | 2017-06-19 09:14 | XMS REPORT | Clinical Summary ---
Author Author [facility] Organization [facility] Address Unknown Phone Unavailable Care Team Providers Care Graphic Art Designer Name Role Phone Fidencio Fitzgerald MD PCP Source Comments Some departments are not documenting in the electronic medical record. If you do not see the information that you expected, contact Release of Information in the Health Information Management department at [phone] for further assistance in locating additional records.[facility] Allergies Active Allergy Reactions Severity Noted Date Comments Divalproex CHEST TIGHTNESS Medium 10/06/2016 Chest pain and palpitations. Iodine And Iodide HIVES Medium 03/01/2014 Chest pain Containing Products Sulfa (Sulfonamide EDEMA Medium 03/01/2014 Antibiotics) Current Medications Prescription Sig. Disp. Refills Start End Date Status Date lisinopril (PRINIVIL, Take 40 mg by mouth. Active ZESTRIL) 40 mg tablet pravastatin (PRAVACHOL) TAKE ONE TABLET BY MOUTH 0 11/07/19 Active 80 mg tablet ONCE DAILY 17 potassium chloride Take by mouth. Active (K-DUR) 10 mEq tablet oxyCODONE/acetaminophen Take by mouth every 6 Active (PERCOCET; ENDOCET; hours ROXICET) 5/325 mg tablet tiZANidine (ZANAFLEX) 4 TAKE ONE TABLET BY MOUTH 0 12/09/19 Active mg tablet THREE TIMES DAILY 17 NEEDED TRIAMTERENE-HYDROCHLOROTH Take by mouth. Active IAZID PO duloxetine DR (CYMBALTA) TAKE ONE CAPSULE BY MOUTH 0 12/11/19 Active 30 mg capsule ONCE DAILY IN THE MORNING 17 metoprolol tartrate Take 25 mg by mouth. Active (LOPRESSOR) 25 mg tablet ALPRAZolam (XANAX) 0.5 mg TAKE ONE TABLET BY MOUTH 0 12/12/19 Active tablet THREE TIMES DAILY 17 cyanocobalamin (VITAMIN 01/08/20 Active B-12, RUBRAMIN) 1,000 17 mcg/mL injection folic acid 400 mcg tablet Take by mouth. Active zolpidem (AMBIEN) 10 mg TAKE ONE TABLET BY MOUTH 0 12/09/19 Active tablet ONCE DAILY AT BEDTIME 17 Erbmcya-Zjpqgxhsq-Pbhl Take 1 tablet by mouth Active tab twice daily. Active Problems Problem Noted Date Colloid cyst of third ventricle (HCC) 01/08/2017 Social History Tobacco Use Types Packs/Day Years Used Date Current Every Day Smoker 0.5 Smokeless Tobacco: Never Used Alcohol Use Drinks/Week oz/Week Comments No Sex Assigned at Date Recorded Not on file Last Filed Vital Signs Vital Sign Reading Time Taken Blood Pressure 171/94 01/08/2017 2:40 PM CDT Pulse 66 01/08/2017 2:40 PM CDT Temperature - - Respiratory Rate - - Oxygen Saturation - - Inhaled Oxygen - - Concentration Weight 59 kg (130 lb) 01/08/2017 2:40 PM CDT Height 172.7 cm (5' 8") 01/08/2017 2:40 PM CDT Body Mass Index 19.77 01/08/2017 2:40 PM CDT Plan of Treatment Health Maintenance Due Date Last Done Comments PHYSICAL (COMPREHENSIVE) 1972 EXAM PERTUSSIS VACCINE 1976 HIV SCREENING 1980 TETANUS VACCINE 1982 CERVICAL CANCER SCREENING 08/23/1995 BREAST CANCER SCREENING 2005 COLORECTAL CANCER 08/23/2015 SCREENING INFLUENZA VACCINE 12/28/2017 Results Not on filefrom Last 3 Months
[2017-06-19] MEDS ORDERED: LACTATED RINGERS 1,000 ML IV ONE (09:39)
[2017-06-19] MEDS ORDERED: KETOROLAC 30 MG/ML VIAL IVP STA (09:39)
[2017-06-19] MEDS ORDERED: diphenhydrAMINE 50 MG/ML INJ (BENADRYL) IVP ONE (09:45)
[2017-06-19] MEDS ORDERED: PROCHLORPERAZINE 10 MG/2ML INJ (COMPAZINE) IV ONE (09:45)
[2017-06-19 10:38] LABS: BASOPHILS % (AUTO) 0 % (0-10); EOSINOPHILS # (AUTO) 0.2 10^3/uL (0.0-0.3); EOSINOPHILS % (AUTO) 2 % (0-10); HEMATOCRIT 35 % (35-52); HEMOGLOBIN 12.7 G/DL (11.5-16.0); LYMPHOCYTES % (AUTO) 38 % (12-44); MEAN CORPUSCULAR HEMOGLOBIN 33 PG (25-34); MEAN CORPUSCULAR HGB CONC 37 G/DL (32-36); MEAN CORPUSCULAR VOLUME 91 FL (80-99); MEAN PLATELET VOLUME 9.1 FL (7.4-10.4); MONOCYTES # (AUTO) 0.9 X 10^3 (0.0-1.0); MONOCYTES % (AUTO) 11 % (0-12); NEUTROPHILS # (AUTO) 3.9 X 10^3 (1.8-7.8); NEUTROPHILS % (AUTO) 49 % (42-75); PLATELET COUNT 282 10^3/uL (130-400); RED CELL DISTRIBUTION WIDTH 12.8 % (10.0-14.5); WHITE BLOOD COUNT 7.9 10^3/uL (4.3-11.0)
[2017-06-19 10:50] LABS: CALCIUM 9.5 MG/DL (8.5-10.1); CREATININE SERUM 1.01 MG/DL (0.60-1.30); MAGNESIUM 2.1 MG/DL (1.8-2.4); POTASSIUM 3.6 MMOL/L (3.6-5.0)
[2017-06-19] MEDS ORDERED: PROC-1 PO (12:06)
[2017-06-19] MEDS ORDERED: ONDA4TAB8 PO (12:06)
--- NOTE | 2017-06-19 12:06 | ED Headache ---
General Chief Complaint: Head/Cervical Problems Stated Complaint: MIGRAINE,BACK OF SKULL PAIN X 3 DAYS Nursing Triage Note: PT CO OF MIGRAINE FLORES FOR 3 DAYS, STATES WAS SEEN AT CLINIC AND HAD GOTTEN TORDAL AND ZOFRAN W NO RELIEF. PT STATES HAS HX OF MIGRAINES D/T BRAIN SURGERIES A FEW YEARS AGO Nursing Sepsis Screen: No Definite Risk Allergies and Home Medications Allergies Coded Allergies: Sulfa (Sulfonamide Antibiotics) (Verified Allergy, Unknown, 05/24/16) divalproex sodium (Verified Allergy, Unknown, 05/24/16) iodine (Verified Allergy, Unknown, 05/24/16) Home Medications Alprazolam 0.5 Mg Tablet, 0.5 MG PO TID PRN for ANXIETY, (Reported) Aspirin 81 Mg Tablet.dr, 81 MG PO HS, (Reported) Cholecalciferol (Vitamin D3) 400 Unit Capsule, 400 UNIT PO DAILY, (Reported) Cyanocobalamin 1,000 Mcg/Ml Inj, 1,000 MCG IJ MONTHLY, (Reported) Duloxetine HCl 30 Mg Capsule.dr, 30 MG PO DAILY, (Reported) Folic Acid 0.4 Mg Tablet, 0.4 MG PO DAILY, (Reported) Ibuprofen 200 Mg Tablet, 600-800 MG PO Q6H PRN for PAIN-MILD, (Reported) Lisinopril 40 Mg Tablet, 40 MG PO DAILY, (Reported) Metoprolol Tartrate 25 Mg Tablet, 25 MG PO HS, (Reported) Potassium Chloride 10 Meq Tab.er.prt, 10 MEQ PO 1600, (Reported) Pravastatin Sodium 80 Mg Tablet, 80 MG PO HS, (Reported) Tizanidine HCl 4 Mg Tablet, 4 MG PO TID PRN for MUSCLE SPASMS, (Reported) Zolpidem Tartrate 10 Mg Tablet, 10 MG PO HS PRN for SLEEP, (Reported) Past Jcqebzx-Qqpefx-Rbtkjd Hx Patient Social History Alcohol Use: Denies Use Recreational Drug Use: No Smoking Status: Current Everyday Smoker Type Used: Cigarettes Recent Foreign Travel: No Contact w/Someone Who Travel: No Recent Infectious Disease Expo: No Recent Hopitalizations: No Physical Abuse: No Sexual Abuse: No Seasonal Allergies Seasonal Allergies: Yes Surgeries History of Surgeries: Yes (COLLOID CYST REMOVED FROM 3RD VENTRICLE) Surgeries: Gallbladder, Hysterectomy, Neurological, Tonsillectomy Respiratory History of Respiratory Disorde: No Cardiovascular History of Cardiac Disorders: Yes (MVP) Cardiac Disorders: High Cholesterol, Hypertension, Valvular Heart Disease Neurological History of Neurological Disord: Yes (BRAIN SURGERY) Neurological Disorders: Headaches /Migraines Reproductive 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: Hysterectomy Gastrointestinal History of Gastrointestinal Di: No Musculoskeletal History of Musculoskeletal Dis: Yes (Craniotomy with hardware) Musculoskeletal Disorders: Chronic Back Pain Endocrine History of Endocrine Disorders: No Cancer History of Cancer: No Psychosocial History of Psychiatric Problem: Yes Behavioral Health Disorders: Anxiety, Depression Suicide Risk Score: 0 Integumentary History of Skin or Integumenta: No Blood Transfusions History of Blood Disorders: No Family Medical History Significant Family History: No Pertinent Family Hx Physical Exam Vital Signs Vital Signs - First Documented 06/19/17 09:20 Temp 97.6 Pulse 51 Resp 18 B/P (MAP) 151/76 (101) Pulse Ox 99 Capillary Refill : Less Than 3 Seconds Progress/Results/Core Measures Results/Orders Lab Results Laboratory Tests Test 06/19/17 10:25 Range/Units White Blood Count 7.9 4.3-11.0 10^3/uL Red Blood Count 3.80 L 4.35-5.85 10^6/uL Hemoglobin 12.7 11.5-16.0 G/DL Hematocrit 35 35-52 % Mean Corpuscular Volume 91 80-99 FL Mean Corpuscular Hemoglobin 33 25-34 PG Mean Corpuscular Hemoglobin Concent 37 H 32-36 G/DL Red Cell Distribution Width 12.8 10.0-14.5 % Platelet Count 282 130-400 10^3/uL Mean Platelet Volume 9.1 7.4-10.4 FL Neutrophils (%) (Auto) 49 42-75 % Lymphocytes (%) (Auto) 38 12-44 % Monocytes (%) (Auto) 11 0-12 % Eosinophils (%) (Auto) 2 0-10 % Basophils (%) (Auto) 0 0-10 % Neutrophils # (Auto) 3.9 1.8-7.8 X 10^3 Lymphocytes # (Auto) 3.0 1.0-4.0 X 10^3 Monocytes # (Auto) 0.9 0.0-1.0 X 10^3 Eosinophils # (Auto) 0.2 0.0-0.3 10^3/uL Basophils # (Auto) 0.0 0.0-0.1 10^3/uL Sodium Level 132 L 135-145 MMOL/L Potassium Level 3.6 3.6-5.0 MMOL/L Chloride Level 98 98-107 MMOL/L Carbon Dioxide Level 28 21-32 MMOL/L Anion Gap 6 5-14 MMOL/L Blood Urea Nitrogen 17 7-18 MG/DL Creatinine 1.01 0.60-1.30 MG/DL Estimat Glomerular Filtration Rate 58 BUN/Creatinine Ratio 17 Glucose Level 88 70-105 MG/DL Calcium Level 9.5 8.5-10.1 MG/DL Magnesium Level 2.1 1.8-2.4 MG/DL My Orders Orders - MARJAN STOLL DO Saline Lock/Iv-Start (06/19/17 09:39) Basic Metabolic Panel (06/19/17 09:39) Cbc With Automated Diff (06/19/17 09:39) Magnesium (06/19/17 09:39) Saline Lock/Iv-Start (06/19/17 09:39) Lactated Ringers (Lr 1000 Ml Iv Solution (06/19/17 09:39) Ketorolac Injection (Toradol Injection) (06/19/17 09:39) Diphenhydramine Injection (Benadryl Inje (06/19/17 09:45) Prochlorperazine Injection (Compazine In (06/19/17 09:45) Ondansetron Injection (Zofran Injectio (06/19/17 12:15) Medications Given in ED Current Medications Medications Dose Ordered Sig/Francisco Route Start Time Stop Time Status Last Admin Dose Admin Diphenhydramine HCl 50 mg ONCE ONCE IVP 06/19/17 09:45 06/19/17 09:46 DC 06/19/17 10:26 50 MG Lactated Ringer's 1,000 ml @ 0 mls/hr Q0M ONCE IV 06/19/17 09:39 06/19/17 09:42 DC 06/19/17 10:26 1,000 MLS/HR Prochlorperazine Edisylate 10 mg ONCE ONCE IV 06/19/17 09:45 06/19/17 09:46 DC 06/19/17 10:26 10 MG Vital Signs/I&O Vital Sign - Last 12Hours 06/19/17 09:20 Temp 97.6 Pulse 51 Resp 18 B/P (MAP) 151/76 (101) Pulse Ox 99 Blood Pressure Mean: 101 Departure Impression Impression: Primary Impression: Chronic headaches Disposition: HOME, SELF-CARE Condition: Improved Departure-Patient Inst. Referrals: [facility] (PCP) Primary Care Physician OSBALDO CORRAL APRN (Family) Primary Care Physician Patient Instructions: Headache, Adult (DC) Add. Discharge Instructions: TAKE YOUR REGULAR MEDICATIONS FOLLOW UP WITH YOUR NEUROLOGIST NEXT WEEK FOR FURTHER CARE All discharge instructions reviewed with patient and/or family. Voiced understanding. Scripts Prochlorperazine Maleate (Compazine) 10 Mg Tablet 10 MG PO Q6H Y for NAUSEA/VOMITING-2ND LINE, #10 TAB Prov: MARJAN STOLL DO 06/19/17 Ondansetron (Zofran Odt) 4 Mg Tab.rapdis 4 MG PO Q4H for Nausea/Vomiting, #10 TAB Prov: MARJAN STOLL DO 06/19/17 MARJAN STOLL DO Jun 19, 2017 12:06
[2017-06-19] MEDS ORDERED: ONDANSETRON 4 MG/2 ML (SDV) Z0FRAN IVP ONE (12:15)
[2017-06-19 12:18] VITALS: BP 151/76
== END 2017-06-19 12:18 | disposition home or self-care (01) ==
LOC: EDUNIT# 09:07 → ER 09:09
DX: R51 Headache (principal); E78.00 Pure hypercholesterolemia, unspecified; I10 Essential (primary) hypertension; F41.9 Anxiety disorder, unspecified; F32.9 Major depressive disorder, single episode, unspecified; F17.210 Nicotine dependence, cigarettes, uncomplicated; Z90.710 Acquired absence of both cervix and uterus; Z90.89 Acquired absence of other organs; Z79.82 Long term (current) use of aspirin; Z98.890 Other specified postprocedural states; Z88.2 Allergy status to sulfonamides; Z91.041 Radiographic dye allergy status; Z88.8 Allergy status to other drugs, medicaments and biological substances
CPT/HCPCS: 36415; 80048; 83735; 85025; 96361; 96374; 96375

== ENCOUNTER 2017-08-24 08:31 | Emergency (ER) | payer MEDICARE, MEDICAID ==
[~2017-08-24] VITALS: Ht 172.7 cm; Wt 63.5 kg
[~2017-08-24 08:31] MED LIST changes: +PROC-1 PO
--- OUTSIDE RECORDS SUMMARY | 2017-08-24 08:36 | XMS REPORT | Clinical Summary ---
Author Author [facility] Organization [facility] Address Unknown Phone Unavailable Care Team Providers Care X Ray Physician Name Role Phone Fidencio Fitzgerald MD PCP Source Comments Some departments are not documenting in the electronic medical record. If you do not see the information that you expected, contact Release of Information in the Health Information Management department at [phone] for further assistance in locating additional records.[facility] Allergies Active Allergy Reactions Severity Noted Date [...] Active tablet ONCE DAILY AT BEDTIME 17 Wqlonph-Xbjtqkuxl-Txfw Take 1 tablet by mouth Active tab [...]
--- OUTSIDE RECORDS SUMMARY | 2017-08-24 08:37 | XMS REPORT ---
Author Author CORRALOSBALDO New Organization [facility] Address [address] [place] [address] Care Team Providers Care Pit Clerk Name Role Phone OSBALDO CORRAL Unavailable PROBLEMS Type Condition ICD9-CM Code SXR60-GB Code Onset Dates Condition Status SNOMED Code Problem Primary insomnia F51.01 Active 8499101 Problem Major depressive disorder, recurrent episode, moderate F33.1 Active 023626188 Problem Anxiety, generalized F41.1 Active 08406375 Problem Vitamin B12 deficiency anemia due to intrinsic factor deficiency D51.0 Active 04180977 Problem Migraine without status migrainosus, not intractable, unspecified migraine type G43.909 Active 48217426 Problem Essential hypertension I10 Active 94620333 Problem Chronic pain due to trauma G89.21 Active 162818306 Problem Adjustment disorder with mixed anxiety and depressed mood F43.23 Active 16001312 Problem Seasonal allergic rhinitis, unspecified allergic rhinitis trigger J30.2 Active 217791006 Problem Empty sella syndrome E23.6 Active 720288665 Problem 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 Active 00455611 Problem Pernicious anemia D51.0 Active 96185751 Problem Hypokalemia E87.6 Active 32041170 Problem Other hyperlipidemia E78.4 Active 24780708 ALLERGIES No Information ENCOUNTERS Encounter Location Date Diagnosis [facility] [id number] [place] [address]13 Jun, Anxiety, generalized F41.1 and Osteoarthritis of spine with radiculopathy, lumbosacral region M47.27 [facility] [address] [place] [address] -[address]5 Jun, Acute frontal sinusitis, recurrence not specified J01.10 ; Sinus pressure J34.89 ; Post-nasal drip R09.82 and Sore throat J02.9 [facility] [address] [place] [phone] Jun, Primary insomnia F51.01 [place] [address] [place] [id number]- 2001 May, Anxiety, generalized F41.1 and Osteoarthritis of spine with radiculopathy, lumbosacral region M47.27 [place] [address] [address]- [address] May, Essential hypertension I10 ; 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 ; Empty sella syndrome E23.6 ; Pernicious anemia D51.0 ; Major depressive disorder, recurrent episode, moderate F33.1 ; Primary insomnia F51.01 ; Other hyperlipidemia E78.4 and Anxiety, generalized F41.1 [place] [address] [address]- 7507 May, Vitamin B12 deficiency anemia due to intrinsic factor deficiency D51.0 and Pernicious anemia D51.0 [facility] [address] [address] May, Migraine without status migrainosus, not intractable, unspecified migraine type G43.909 [place] [id number] [place] [address] 19070- 0378 May, [place] [address] [id number] [place] [address] 63373- 8413 May, [place] [address] 92975- 6305 May, Osteoarthritis of spine with radiculopathy, lumbosacral region M47.27 and Primary insomnia F51.01 [place] [address] 85894- 0160 May, Osteoarthritis of spine with radiculopathy, lumbosacral region M47.27 and Anxiety, generalized F41.1 [facility] [address] [address]- 4745 May, [place] [id number] [place] [address] 74375- 2632 Apr, [place] [address] 49087- 6401 Apr, [place] [address] [address]- 1989 Apr, Anxiety, generalized F41.1 ; Major depressive disorder, recurrent episode, moderate F33.1 ; Moderate episode of recurrent major depressive disorder F33.1 and Adjustment disorder with mixed anxiety and depressed mood F43.23 [place] [address] 688493- 7604 Apr, Major depressive disorder, recurrent episode, moderate F33.1 ; Anxiety, generalized F41.1 ; Essential hypertension I10 ; Primary insomnia F51.01 and 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 [address] 09 Apr, 2017 Other chest pain R07.89 ; Sinus bradycardia R00.1 ; Essential hypertension I10 and Other hyperlipidemia E78.4 [place] [address] 67075- 7240 08 Apr, 2017 Primary insomnia F51.01 [place] [address] 71837- 2943 Apr, [place] [address] 96008- 3451 Apr, Anxiety, generalized F41.1 [place] [address] 93914- 0638 Apr, Osteoarthritis of spine with radiculopathy, lumbosacral region M47.27 [facility] [place] [address] [id number] [place] [address] 94793- 8197 Mar, Intractable migraine without aura and without status migrainosus G43.019 and Dyshidrotic hand dermatitis L30.1 [facility] [address] [address] Mar, Skin infection L08.9 [place] [address] 90833- 3278 Mar, [facility] [address] 732[address]4690 Mar, Skin lesion L98.9 [place] [address] 69981- 8702 Mar, Primary insomnia F51.01 and Anxiety, generalized F41.1 [place] [address] 22575- 1803 Mar, Osteoarthritis of spine with radiculopathy, lumbosacral region M47.27 [place] [address] 39582- 9268 Feb, [place] [address] 75019- 1025 Feb, [place] [address] 88466- 6619 Feb, Hypokalemia E87.6 [place] [address] [id number] [place] [address] 76242- 4887 Feb, Intractable migraine without aura and without status migrainosus G43.019 and Other chest pain R07.89 [facility] [id number] [place] [address] 52069- 7718 Feb, [place] [address] 66308- 1858 Feb, Osteoarthritis of spine with radiculopathy, lumbosacral region M47.27 [place] [address] [address]- 1974 Feb, Hypokalemia E87.6 [place] [address] [address] Feb, [facility] [id number] [place] [address] 71539- 3269 Feb, Primary insomnia F51.01 and Anxiety, generalized F41.1 [facility] [id number] [place] [address] 22913 [address]3027 Feb, Acute suppurative otitis media of both ears without spontaneous rupture of tympanic membranes, recurrence not specified H66.003 [facility] [id number] [place] [address] 67590- 9419 Feb, [facility] [id number] [place] [address] 09432- 8214 Jan, Osteoarthritis of spine with radiculopathy, lumbosacral region M47.27 [place] [id number] [place] [address] 09745- 6181 Jan, Primary insomnia F51.01 and Anxiety, generalized F41.1 [facility] [id number] [place] [address] 92787- 0673 Jan, Chronic pain due to trauma G89.21 ; Left otitis media with effusion H65.92 and Otalgia of left ear H92.02 [facility] [address], [place] [address] Jan, Bilateral otitis media with effusion H65.93 [facility] [id number] [place] [address] 67435- 1034 Dec, [facility] [id number] [place] [address] 69260- 5170 Dec, Primary insomnia F51.01 and Anxiety, generalized F41.1 [facility] [id number] [place] [address] 96620- 5265 Nov, [facility] [id number] [place] [address] 05052- 9438 Nov, [place] [id number] [place] [address] 37650- 5238 13 Nov, 2016 Anxiety, generalized F41.1 [place] [address] 31443- 8376 12 Nov, 2016 Pernicious anemia D51.0 [place] [address] 76140- 7023 11 Nov, 2016 Primary insomnia F51.01 [place] [address] 02213- 8860 01 Nov, 2016 Encounter for well woman exam with routine gynecological exam Z01.419 ; Screening breast examination Z12.31 and Otalgia of left ear H92.02 [place] [address] 52903- 1343 15 Oct, 2016 [facility] [address] 77[address] 14 Oct, 2016 Insect bite (nonvenomous) of right upper arm, initial encounter S40.861A [place] [address] 31158- 6142 Oct, Pernicious anemia D51.0 [place] [address] 52775- 6774 07 Oct, 2016 Anxiety, generalized F41.1 and Pernicious anemia D51.0 [place] [address] 84966- 3605 Oct, Encounter to establish care with new doctor Z76.89 ; Moderate episode of recurrent major depressive disorder F33.1 ; Empty sella syndrome E23.6 ; Seasonal allergic rhinitis, unspecified allergic rhinitis trigger J30.2 ; Essential hypertension I10 and Osteoarthritis of spine with radiculopathy, lumbosacral region M47.27 [place] [address] 03842- 9760 Aug, [place] [id number] [place] [address] 67122- 5586 Aug, [place] [address] 28605- 5415 Aug, Anxiety, generalized F41.1 [place] [id number] [place] [address] 56941- 9900 08 Aug, 2016 [place] [address] 71512- 9605 Aug, Primary insomnia F51.01 ; Essential hypertension I10 ; Empty sella syndrome E23.6 and Chronic pain due to trauma G89.21 [place] [address] 39811- 6471 July, Primary insomnia F51.01 [facility] [place] [id number] [place] [address] 09340 -[address]188 July, Seasonal allergic rhinitis, unspecified allergic rhinitis trigger J30.2 and Acute suppurative otitis media of right ear without spontaneous rupture of tympanic membrane, recurrence not specified H66.001 [facility] [id number] [place] [address] 33922 -6807 July, Acute suppurative otitis media of left ear without spontaneous rupture of tympanic membrane, recurrence not specified H66.002 [place] [id number] [place] [address] 80669- 1340 July, [place] [id number] [place] [address] 31035- 6260 July, Anxiety, generalized F41.1 [place] [id number] [place] [address] 04483- 1149 Jun, [place] [id number] [place] [address] 65058- 4505 Jun, Primary insomnia F51.01 [place] [id number] [place] [address] 00684- 7185 Jun, Empty sella syndrome E23.6 ; Primary insomnia F51.01 and Hypokalemia E87.6 [facility] [id number] [place] [address] 80714- 4095 Jun, [facility] [id number] [place] [address] 80408- 0920 Jun, [facility] [id number] [place] [address] 24222- 2209 Jun, Empty sella syndrome E23.6 [facility] [id number] [place] [address] 16790- 8807 Jun, Anxiety, generalized F41.1 [facility] [id number] [place] [address] 82266- 0943 Jun, [facility] [id number] [place] [address] 90772- 1568 Jun, Empty sella syndrome E23.6 [facility] [id number] [place] [address] 93735- 2365 May, [facility] [id number] [place] [address] 08573- 0069 May, [facility] [id number] [place] [address] 62470- 1235 May, Empty sella syndrome E23.6 [facility] [id number] [place] [address] 73563- 9844 May, [facility] [id number] [place] [address] 12407- 7302 May, [facility] [id number] [place] [address] 83252- 2967 May, Primary insomnia F51.01 [facility] [id number] [place] [address] 67006- 9142 May, [facility] [id number] [place] [address] 95673- 4722 20 May, 2016 Nausea R11.0 ; Other headache syndrome G44.89 and Malignant hypertension I10 [facility] [id number] [place] [address] 36050- 6998 07 May, 2016 Anxiety, generalized F41.1 [facility] [id number] [place] [address] 42974- 2063 28 Apr, 2016 Major depressive disorder, recurrent episode, moderate F33.1 [facility] [id number] [place] [address] 60520- 6470 Apr, Moderate episode of recurrent major depressive disorder F33.1 [facility] [address] 330142- 1226 27 Apr, 2016 Other chronic postprocedural pain G89.28 [facility] [id number] [place] [address] 50949- 7296 15 Apr, 2016 Major depressive disorder, recurrent episode, moderate F33.1 [facility] [id number] [place] [address] 99479- 1256 07 Apr, 2016 Anxiety, generalized F41.1 [facility] [id number] [place] [address] 90765- 5824 03 Apr, 2016 [facility] [id number] [place] [address] 17840- 4782 Mar, Other chronic postprocedural pain G89.28 ; Status post craniotomy Z98.890 ; Encounter for drug screening Z02.83 and Hematuria R31.9 [facility] [id number] [place] [address] 80356- 7167 Mar, Major depressive disorder, recurrent episode, moderate F33.1 [facility] [id number] [place] [address] 28661- 9960 Mar, [facility] [id number] [place] [address] 58284- 2797 Mar, Anxiety, generalized F41.1 [place] [address], [place] [address]- [address] Mar, Anxiety, generalized F41.1 and Pernicious anemia D51.0 [place] [address] [place] [address] 21543- 3247 Mar, 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 and Status post craniotomy Z98.890 [place] [id number] [place] [address] 09715- 6680 Mar, Primary insomnia F51.01 [place] [id number] [place] [address] 41082- 6371 Feb, [place] [id number] [place] [address] 04264- 1602 Feb, Encounter to establish care Z76.89 ; Status post craniotomy Z98.890 ; 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
--- OUTSIDE RECORDS SUMMARY | 2017-08-24 08:38 | XMS REPORT ---
Author Author ARVIN GOMES Organization [facility] Address [address] [place] [address] Care Team Providers Care Manager Marketing Communications Name Role Phone ARVIN GOMES Unavailable PROBLEMS Type Condition ICD9-CM Code UQP15-GO Code Onset Dates Condition Status SNOMED Code Problem Major depressive disorder, recurrent episode, moderate F33.1 Active 090533666 Problem Chronic pain due to trauma G89.21 Active 823527391 Problem Other headache syndrome G44.89 Active 559480502 Problem Vitamin B12 deficiency anemia due to intrinsic factor deficiency D51.0 Active 52325430 Problem Migraine without status migrainosus, not intractable, unspecified migraine type G43.909 Active 00456412 Problem Seasonal allergic rhinitis, unspecified allergic rhinitis trigger J30.2 Active 542012584 Problem Essential hypertension I10 Active 12165856 Problem Adjustment disorder with mixed anxiety and depressed mood F43.23 Active 16904352 Problem Intractable migraine without aura and without status migrainosus G43.019 Active 733418218 Problem Hypokalemia E87.6 Active 20711461 Problem Empty sella syndrome E23.6 Active 198336453 Problem Other hyperlipidemia E78.4 Active 66288046 Problem Other chronic postprocedural pain G89.28 Active 872014380 Problem 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 Active 35635368 Problem Primary insomnia F51.01 Active 7784445 Problem Pernicious anemia D51.0 Active 77348281 Problem Anxiety, generalized F41.1 Active 20469302 ALLERGIES No Information ENCOUNTERS Encounter Location Date Diagnosis [facility] [address] [address] May, 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 ; Empty sella syndrome E23.6 and Pernicious anemia D51.0 [facility] [id number] [address] May, Vitamin B12 deficiency anemia due to intrinsic factor deficiency D51.0 and Pernicious anemia D51.0 [facility] [address] [address] May, Migraine without status migrainosus, not intractable, unspecified migraine type G43.909 [facility] [address] [address] May, [place] [address] [address] May, [place] [address] [address] May, Osteoarthritis of spine with radiculopathy, lumbosacral region M47.27 and Primary insomnia F51.01 [place] [address] [address] 02 May, 2017 Osteoarthritis of spine with radiculopathy, lumbosacral region M47.27 and Anxiety, generalized F41.1 [place] [address] [address] May, [place] [address] [address] 28 Apr, 2017 [place] [address] [address] 19 Apr, 2017 [place] [address] [address] 13 Apr, 2017 Anxiety, generalized F41.1 ; Major depressive disorder, recurrent episode, moderate F33.1 ; Moderate episode of recurrent major depressive disorder F33.1 and Adjustment disorder with mixed anxiety and depressed mood F43.23 [place] [address] [place] [id number] [place] [address] 13 Apr, 2017 Major depressive disorder, recurrent episode, moderate F33.1 ; Anxiety, generalized F41.1 ; Essential hypertension I10 ; Primary insomnia F51.01 and 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 [place] [address] [address] 09 Apr, 2017 Other chest pain R07.89 ; Sinus bradycardia R00.1 ; Essential hypertension I10 and Other hyperlipidemia E78.4 [place] [address] [address] Apr, Primary insomnia F51.01 [place] [address] [address] Apr, [address] [address] Apr, Anxiety, generalized F41.1 [place] [address] [address] Apr, Osteoarthritis of spine with radiculopathy, lumbosacral region M47.27 [place] [address] [address] Mar, Intractable migraine without aura and without status migrainosus G43.019 and Dyshidrotic hand dermatitis L30.1 [facility] [place] [address] [address] Mar, Skin infection L08.[address] [address] Mar, [facility] [address] [address] Mar, Skin lesion L98.[address] [address] Mar, Primary insomnia F51.01 and Anxiety, generalized F41.1 [place] [address] [address] Mar, Osteoarthritis of spine with radiculopathy, lumbosacral region M47.27 [facility] [id number] [place] [address] Feb, [facility] [address] [address] Feb, [facility] [address] [address] Feb, Hypokalemia E87.6 [facility] [address] [address] Feb, Intractable migraine without aura and without status migrainosus G43.019 and Other chest pain R07.89 [facility] [address] [address] Feb, [facility] [address] [address] Feb, Osteoarthritis of spine with radiculopathy, lumbosacral region M47.27 [facility] [address] [id number] [place] [address] Feb, Hypokalemia E87.6 [place] [address] [place] [id number] [place] [address] Feb, [facility] [address] [address] Feb, Primary insomnia F51.01 and Anxiety, generalized F41.1 [facility] [id number] [place] [address] Feb, Acute suppurative otitis media of both ears without spontaneous rupture of tympanic membranes, recurrence not specified H66.003 [facility] [address] [place] [id number] [place] [address] Feb, [facility] [address] [id number] [place] [address] Jan, Osteoarthritis of spine with radiculopathy, lumbosacral region M47.27 [facility] [id number] [place] [address]- [address] 07 Jan, 2017 Primary insomnia F51.01 and Anxiety, generalized F41.1 [place] [address] [address] 02 Jan, 2017 Chronic pain due to trauma G89.21 ; Left otitis media with effusion H65.92 and Otalgia of left ear H92.02 [facility] [address] [address] Jan, Bilateral otitis media with effusion H65.93 [facility] [address] [address] Dec, [place] [address] [address] Dec, Primary insomnia F51.01 and Anxiety, generalized F41.1 [place] [address] [address] Nov, [facility] [address] [address] Nov, [place] [address] [address] Nov, Anxiety, generalized F41.1 [place] [address] [address] Nov, Pernicious anemia D51.0 [place] [address] [address] 11 Nov, 2016 Primary insomnia F51.01 [facility] [address] [address] Nov, Encounter for well woman exam with routine gynecological exam Z01.419 ; Screening breast examination Z12.31 and Otalgia of left ear H92.02 [place] [address] [address] Oct, [facility] [id number] [place] [address] 14 Oct, 2016 Insect bite (nonvenomous) of right upper arm, initial encounter S40.861A [facility] [address] [place] [id number] [place] [address] 11 Oct, 2016 Pernicious anemia D51.0 [place] [address] [address] Oct, Anxiety, generalized F41.1 and Pernicious anemia D51.0 [place] [address] [address] Oct, Encounter to establish care with new doctor Z76.89 ; Moderate episode of recurrent major depressive disorder F33.1 ; Empty sella syndrome E23.6 ; Seasonal allergic rhinitis, unspecified allergic rhinitis trigger J30.2 ; Essential hypertension I10 and Osteoarthritis of spine with radiculopathy, lumbosacral region M47.27 [place] [address] [address] Aug, [place] [address] [address] Aug, [place] [address] [place] [id number] [place] [address] 13 Aug, 2016 Anxiety, generalized F41.1 [place] [address] [address] 08 Aug, 2016 [place] [address] [place] [id number] [place] [address]- [address] 07 Aug, 2016 Primary insomnia F51.01 ; Essential hypertension I10 ; Empty sella syndrome E23.6 and Chronic pain due to trauma G89.21 [place] [address] [id number] [place] [address] July, Primary insomnia F51.01 [facility] [address] [place] [address] July, Seasonal allergic rhinitis, unspecified allergic rhinitis trigger J30.2 and Acute suppurative otitis media of right ear without spontaneous rupture of tympanic membrane, recurrence not specified H66.001 [facility] [id number] [place] [address] July, Acute suppurative otitis media of left ear without spontaneous rupture of tympanic membrane, recurrence not specified H66.002 [facility] [address] [address] July, [facility] [address] [address] July, Anxiety, generalized F41.1 [facility] [address] [id number] [place] [address]- [address] Jun, [facility] [address] [address] Jun, Primary insomnia F51.01 [facility] [address] [address] Jun, Empty sella syndrome E23.6 ; Primary insomnia F51.01 and Hypokalemia E87.6 [facility] [address] [address] [id number] [place] [address]- [address] Jun, [facility] [id number] [place] [address]- [address] Jun, [facility] [address] [id number] [place] [address]- [address] Jun, Empty sella syndrome E23.6 [facility] [address] [address]- [address] Jun, Anxiety, generalized F41.1 [facility] [address] [address] [id number] [place] [address]- [address] Jun, [facility] [address] [place] [address]- [address] Jun, Empty sella syndrome E23.6 [facility] [id number] [place] [address]- [address] May, [facility] [id number] [place] [address]- [address] May, [facility] [id number] [place] [address]- 8920 May, Empty sella syndrome E23.6 [facility] [id number] [place] [address]- 7169 May, [facility] [address] [address]- [address] May, [facility] [address] [place] [id number] [place] [address]65- 9007 May, Primary insomnia F51.01 [facility] [id number] [place] [address]- [address] May, [facility] [id number] [place] [address]- [address] May, Nausea R11.0 ; Other headache syndrome G44.89 and Malignant hypertension I10 [facility] [address] [place] [id number] [place] [address]- [address] May, Anxiety, generalized F41.1 [facility] [id number] [place] [address]- [address] Apr, Major depressive disorder, recurrent episode, moderate F33.1 [facility] [id number] [place] [address]- 38[address] Apr, Moderate episode of recurrent major depressive disorder F33.1 [facility] [id number] [place] [address]- 9708 27 Apr, 2016 Other chronic postprocedural pain G89.28 [facility] [address] [place] [address]- [address] 15 Apr, 2016 Major depressive disorder, recurrent episode, moderate F33.1 [place] [address] [address]- [address] 07 Apr, 2016 Anxiety, generalized F41.1 [facility] [address] [address]- [address] 03 Apr, 2016 [place] [address] [address] Mar, Other chronic postprocedural pain G89.28 ; Status post craniotomy Z98.890 ; Encounter for drug screening Z02.83 and Hematuria R31.9 [place] [address] [address]- [address] Mar, Major depressive disorder, recurrent episode, moderate F33.1 [place] [address] [address]- [address] 12 Mar, 2016 [place] [address] [address]- [address] Mar, Anxiety, generalized F41.1 [place] [address] [address]- [address] Mar, Anxiety, generalized F41.1 and Pernicious anemia D51.0 [place] [address] [address] Mar, 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 and Status post craniotomy Z98.890 [place] [address] [place] [id number] [place] [address]- 4048 Mar, Primary insomnia F51.01 [place] [address] [address]- [address] Feb, [place] [address] [place] [id number] [place] [address]85- 8401 Feb, Encounter to establish care Z76.89 ; Status post craniotomy Z98.890 ; 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 ; Hypokalemia E87.6 ; Essential hypertension I10 ; Other hyperlipidemia E78.4 ; Pernicious anemia D51.0 ; Other depression F32.89 and Chronic nausea R11.0 IMMUNIZATIONS No Known Immunizations SOCIAL HISTORY Never Assessed REASON FOR VISIT Narcotics Update PLAN OF CARE VITAL SIGNS MEDICATIONS No Known Medications RESULTS No Results PROCEDURES No Known [...] 6yrs Hospitalization History surgery only Hospitalization History [facility] 02/2017
--- OUTSIDE RECORDS SUMMARY | 2017-08-24 08:39 | XMS REPORT ---
Author Author OSBALDO CORRAL Organization [facility] Address [address] [place] [address] Care Team Providers Care Group Sales Manager Name Role Phone OSBALDO CORRAL Unavailable PROBLEMS Type Condition ICD9-CM Code URP65-AF Code Onset Dates Condition Status SNOMED Code Problem Primary insomnia F51.01 Active 8890925 Problem Major depressive disorder, recurrent episode, moderate F33.1 Active 354198101 Problem Anxiety, generalized F41.1 Active 07984667 Problem Vitamin B12 deficiency anemia due to intrinsic factor deficiency D51.0 Active 71641326 Problem Migraine without status migrainosus, not intractable, unspecified migraine type G43.909 Active 76331005 Problem Essential hypertension I10 Active 26611725 Problem Chronic pain due to trauma G89.21 Active 785937411 Problem Adjustment disorder with mixed anxiety and depressed mood F43.23 Active 78782501 Problem Seasonal allergic rhinitis, unspecified allergic rhinitis trigger J30.2 Active 009597028 Problem Empty sella syndrome E23.6 Active 188301409 Problem 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 Active 31525390 Problem Pernicious anemia D51.0 Active 98819581 Problem Hypokalemia E87.6 Active 64727973 Problem Other hyperlipidemia E78.4 Active 59799702 ALLERGIES No Information ENCOUNTERS Encounter Location Date Diagnosis [facility] [address] [id number] [address] Jun, Acute frontal sinusitis, recurrence not specified J01.10 ; Sinus pressure J34.89 ; Post-nasal drip R09.82 and Sore throat J02.9 [facility] [id number] [address] Jun, Primary insomnia F51.01 [facility] [id number] [address] May, Anxiety, generalized F41.1 and Osteoarthritis of spine with radiculopathy, lumbosacral region M47.27 [facility] [address] [address] May, Essential hypertension I10 ; 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 ; Empty sella syndrome E23.6 ; Pernicious anemia D51.0 ; Major depressive disorder, recurrent episode, moderate F33.1 ; Primary insomnia F51.01 ; Other hyperlipidemia E78.4 and Anxiety, generalized F41.1 [facility] [address] [address] May, Vitamin B12 deficiency anemia due to intrinsic factor deficiency D51.0 and Pernicious anemia D51.0 [facility] [address] [address] May, Migraine without status migrainosus, not intractable, unspecified migraine type G43.909 [facility] [address] [address] May, [facility] [address] [address] May, [facility] [address] [address] May, Osteoarthritis of spine with radiculopathy, lumbosacral region M47.27 and Primary insomnia F51.01 [facility] [address] [address] May, Osteoarthritis of spine with radiculopathy, lumbosacral region M47.27 and Anxiety, generalized F41.1 [facility] [address] [address] May, [place] [address] [address] Apr, [facility] [address] [id number] Apr, [place] [address] [address] 13 Apr, 2017 Anxiety, generalized F41.1 ; Major depressive disorder, recurrent episode, moderate F33.1 ; Moderate episode of recurrent major depressive disorder F33.1 and Adjustment disorder with mixed anxiety and depressed mood F43.23 [place] [address] [address] 13 Apr, 2017 Major depressive disorder, recurrent episode, moderate F33.1 ; Anxiety, generalized F41.1 ; Essential hypertension I10 ; Primary insomnia F51.01 and 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 [place] [address] 09 Apr, 2017 Other chest pain R07.89 ; Sinus bradycardia R00.1 ; Essential hypertension I10 and Other hyperlipidemia E78.[address] [address] 08 Apr, 2017 Primary insomnia F51.01 [place] [address] [address] 06 Apr, 2017 [place] [address] [address] 02 Apr, 2017 Anxiety, generalized F41.[address] [address] Apr, Osteoarthritis of spine with radiculopathy, lumbosacral region M47.27 [place] [address] [address] Mar, Intractable migraine without aura and without status migrainosus G43.019 and Dyshidrotic hand dermatitis L30.1 [facility] [address] [address] Mar, Skin infection L08.[address] [place] [address] Mar, [facility] [id number] [place] [address] Mar, Skin lesion L98.9 [facility] [id number] [place] [address] 08 Mar, 2017 Primary insomnia F51.01 and Anxiety, generalized F41.1 [facility] [address] [address] Mar, Osteoarthritis of spine with radiculopathy, lumbosacral region M47.27 [place] [address] [address] Feb, [facility] [address] [address] Feb, [facility] [address] [address] Feb, Hypokalemia E87.6 [facility] [id number] [place] [address] Feb, Intractable migraine without aura and without status migrainosus G43.019 and Other chest pain R07.89 [facility] [id number] [place] [address] Feb, [facility] [id number] [place] [address] Feb, Osteoarthritis of spine with radiculopathy, lumbosacral region M47.27 [facility] [id number] [place] [address] Feb, Hypokalemia E87.6 [facility] [id number] [place] [address] Feb, [facility] [id number] [place] [address] Feb, Primary insomnia F51.01 and Anxiety, generalized F41.[address] [facility] [id number] [place] [address] Feb, Acute suppurative otitis media of both ears without spontaneous rupture of tympanic membranes, recurrence not specified H66.003 [facility] [address] [address] Feb, [facility] [address] [address] Jan, Osteoarthritis of spine with radiculopathy, lumbosacral region M47.27 [place] [address] [address] Jan, Primary insomnia F51.01 and Anxiety, generalized F41.1 [facility] [address] [address] Jan, Chronic pain due to trauma G89.21 ; Left otitis media with effusion H65.92 and Otalgia of left ear H92.[address] [facility] [address] [address] Jan, Bilateral otitis media with effusion H65.93 [facility] [id number] [place] [address] Dec, [facility] [address] [address] Dec, Primary insomnia F51.01 and Anxiety, generalized F41.1 [facility] [id number] [place] [address] Nov, [facility] [address] [address] 15 Nov, 2016 [facility] [address] [address] Nov, Anxiety, generalized F41.1 [facility] [address] [address] 12 Nov, 2016 Pernicious anemia D51.0 [place] [address] [address] 11 Nov, 2016 Primary insomnia F51.01 [place] [address] [address] Nov, Encounter for well woman exam with routine gynecological exam Z01.419 ; Screening breast examination Z12.31 and Otalgia of left ear H92.02 [place] [address] [address] 15 Oct, [address] [facility] [address] [address] 14 Oct, 2016 Insect bite (nonvenomous) of right upper arm, initial encounter S40.861A [place] [address] [address] Oct, Pernicious anemia D51.0 [place] [address] [address] Oct, Anxiety, generalized F41.1 and Pernicious anemia D51.0 [place] [address] [address] Oct, Encounter to establish care with new doctor Z76.89 ; Moderate episode of recurrent major depressive disorder F33.1 ; Empty sella syndrome E23.6 ; Seasonal allergic rhinitis, unspecified allergic rhinitis trigger J30.2 ; Essential hypertension I10 and Osteoarthritis of spine with radiculopathy, lumbosacral region M47.27 [place] [address] [address] Aug, [place] [address] [address] Aug, [place] [address] [address] Aug, Anxiety, generalized F41.1 [place] [id number] [place] [address] 08 Aug, 2016 [place] [address] [address] Aug, Primary insomnia F51.01 ; Essential hypertension I10 ; Empty sella syndrome E23.6 and Chronic pain due to trauma G89.21 [place] [address] [address] July, Primary insomnia F51.[address] [facility] [place] [address] [address] July, Seasonal allergic rhinitis, unspecified allergic rhinitis trigger J30.2 and Acute suppurative otitis media of right ear without spontaneous rupture of tympanic membrane, recurrence not specified H66.[address] [facility] [place] [address] [address] July, Acute suppurative otitis media of left ear without spontaneous rupture of tympanic membrane, recurrence not specified H66.002 [place] [address] [address] July, [place] [address] [address] July, Anxiety, generalized F41.1 [place] [address] [address] Jun, [place] [id number] [place] [address] Jun, Primary insomnia F51.01 [place] [address] [address] Jun, Empty sella syndrome E23.6 ; Primary insomnia F51.01 and Hypokalemia E87.6 [place] [address] [address] Jun, [place] [address] [address] 07 Jun, 2016 [facility] [id number] [place] [address] Jun, Empty sella syndrome E23.6 [facility] [id number] [place] [address] Jun, Anxiety, generalized F41.1 [facility] [id number] [place] [address] Jun, [facility] [id number] [place] [address] Jun, Empty sella syndrome E23.6 [facility] [id number] [place] [address] May, [facility] [id number] [place] [address] May, [facility] [id number] [place] [address] May, Empty sella syndrome E23.6 [facility] [id number] [place] [address] May, [facility] [id number] [place] [address] May, [facility] [id number] [place] [address] May, Primary insomnia F51.01 [facility] [id number] [place] [address] May, [facility] [id number] [place] [address] May, Nausea R11.0 ; Other headache syndrome G44.89 and Malignant hypertension I10 [facility] [id number] [place] [address]- [address] 07 May, 2016 Anxiety, generalized F41.1 [facility] [address] [place] [address] Apr, Major depressive disorder, recurrent episode, moderate F33.1 [facility] [id number] [place] [address]- 58[address] 28 Apr, 2016 Moderate episode of recurrent major depressive disorder F33.1 [facility] [id number] [place] [address]- [address] 27 Apr, 2016 Other chronic postprocedural pain G89.28 [place] [id number] [place] [address]- [address] 15 Apr, 2016 Major depressive disorder, recurrent episode, moderate F33.1 [place] [id number] [place] [address]- [address] 07 Apr, 2016 Anxiety, generalized F41.1 [place] [id number] [place] [address]- [address]69 Apr, [place] [id number] [place] [address] Mar, Other chronic postprocedural pain G89.28 ; Status post craniotomy Z98.890 ; Encounter for drug screening Z02.83 and Hematuria R31.9 [place] [id number] [place] [address] Mar, Major depressive disorder, recurrent episode, moderate F33.1 [facility] [address] [place] [address]- [address] Mar, [place] [id number] [place] [address]- [address] Mar, Anxiety, generalized F41.1 [place] [id number] [place] [address]- 68[address] Mar, Anxiety, generalized F41.1 and Pernicious anemia D51.0 [place] [address] [address] [address] Mar, 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 and Status post craniotomy Z98.890 [facility] [id number] [address] Mar, Primary insomnia F51.01 [facility] [id number], [place] [address] Feb, [facility] [id number] [address] Feb, Encounter to establish care Z76.89 ; Status post craniotomy Z98.890 ; 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 ; Hypokalemia E87.6 ; Essential hypertension I10 ; Other hyperlipidemia E78.4 ; Pernicious anemia D51.0 ; Other depression F32.89 and Chronic nausea R11.0 IMMUNIZATIONS No Known Immunizations SOCIAL HISTORY Never Assessed REASON FOR VISIT Refill requests PLAN OF CARE VITAL SIGNS MEDICATIONS Medication Instructions Dosage Frequency Start Date End Date Duration Status Tizanidine HCl 4 MG Orally Three times a day 1 tablet as needed 8h May, 30 days Active Ambien 10 MG Orally Once a day 1 tablet at bedtime as needed 24h Mar, 28 days Active RESULTS No Results PROCEDURES [...] Hospitalization History surgery only Hospitalization History . [place] 02/2017
--- OUTSIDE RECORDS SUMMARY | 2017-08-24 08:39 | XMS REPORT ---
Author Author CORRALOSBALDO New Organization [facility] Address [address] [place] [address] Care Team Providers Care Construction Field Engineer Name Role Phone OSBALDO CORRAL Unavailable PROBLEMS Type Condition ICD9-CM Code [id number] Code Onset Dates Condition Status SNOMED Code Problem Primary insomnia F51.01 Active 8190113 Problem Major depressive disorder, recurrent episode, moderate F33.1 Active 050239267 Problem Anxiety, generalized F41.1 Active 28184036 Problem Vitamin B12 deficiency anemia due to intrinsic factor deficiency D51.0 Active 43629917 Problem Migraine without status migrainosus, not intractable, unspecified migraine type G43.909 Active 45851604 Problem Essential hypertension I10 Active 02554167 Problem Chronic pain due to trauma G89.21 Active 471871158 Problem Adjustment disorder with mixed anxiety and depressed mood F43.23 Active 56744204 Problem Seasonal allergic rhinitis, unspecified allergic rhinitis trigger J30.2 Active 703251283 Problem Empty sella syndrome E23.6 Active 731792434 Problem 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 Active 98358853 Problem Pernicious anemia D51.0 Active 14989813 Problem Hypokalemia E87.6 Active 47464271 Problem Other hyperlipidemia E78.4 Active 20572388 ALLERGIES No Information ENCOUNTERS Encounter Location Date Diagnosis [facility] [id number] [place] [address] 20833- 1484 Jun, Anxiety, generalized F41.1 and Osteoarthritis of spine with radiculopathy, lumbosacral region M47.27 [facility] [address] [place] [address] 37676 -0871 Jun, Acute frontal sinusitis, recurrence not specified J01.10 ; Sinus pressure J34.89 ; Post-nasal drip R09.82 and Sore throat J02.9 [facility] [address] [id number]- [address] Jun, Primary insomnia F51.01 [place] [address] [address] [phone]- [address]879 May, Anxiety, generalized F41.1 and Osteoarthritis of spine with radiculopathy, lumbosacral region M47.27 [place] [address] 07691- 9464 May, Essential hypertension I10 ; 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 ; Empty sella syndrome E23.6 ; Pernicious anemia D51.0 ; Major depressive disorder, recurrent episode, moderate F33.1 ; Primary insomnia F51.01 ; Other hyperlipidemia E78.4 and Anxiety, generalized F41.1 [place] [address] 84566- 7967 May, Vitamin B12 deficiency anemia due to intrinsic factor deficiency D51.0 and Pernicious anemia D51.0 [facility] [address] 67[address]46 May, Migraine without status migrainosus, not intractable, unspecified migraine type G43.909 [place] [id number] [place] [address] 48477- 2617 May, [place] [id number] [place] [address] 46733- 9907 May, [place] [address] [address]- 1986 May, Osteoarthritis of spine with radiculopathy, lumbosacral region M47.27 and Primary insomnia F51.01 [place] [address] 29701- 1390 May, Osteoarthritis of spine with radiculopathy, lumbosacral region M47.27 and Anxiety, generalized F41.1 [facility] [address] 80019- 8639 May, [place] [id number] [place] [address] 89385- 9673 Apr, [place] [address] 43510- 7923 Apr, [place] [address] 84684- 7149 Apr, Anxiety, generalized F41.1 ; Major depressive disorder, recurrent episode, moderate F33.1 ; Moderate episode of recurrent major depressive disorder F33.1 and Adjustment disorder with mixed anxiety and depressed mood F43.23 [place] [address] 833949- 6701 Apr, Major depressive disorder, recurrent episode, moderate F33.1 ; Anxiety, generalized F41.1 ; Essential hypertension I10 ; Primary insomnia F51.01 and 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 17[address]- 2524 09 Apr, 2017 Other chest pain R07.89 ; Sinus bradycardia R00.1 ; Essential hypertension I10 and Other hyperlipidemia E78.4 [place] [address] 93919- 7140 08 Apr, 2017 Primary insomnia F51.01 [place] [address] 03332- 4781 Apr, [place] [address] 12571- 0023 Apr, Anxiety, generalized F41.1 [place] [address] 62790- 2224 Apr, Osteoarthritis of spine with radiculopathy, lumbosacral region M47.27 [place] [id number] [place] [address] 99279- 3921 Mar, Intractable migraine without aura and without status migrainosus G43.019 and Dyshidrotic hand dermatitis L30.1 [facility] [address] 45596 -6453 Mar, Skin infection L08.9 [place] [address] 09702- 4759 Mar, [facility] [address] 46428 -0917 Mar, Skin lesion L98.9 [place] [address] 80424- 6999 Mar, Primary insomnia F51.01 and Anxiety, generalized F41.1 [place] [address] 88534- 1945 Mar, Osteoarthritis of spine with radiculopathy, lumbosacral region M47.27 [place] [address] 17824- 3066 Feb, [place] [address] 88701- 4117 Feb, [place] [address] 51558- 0952 Feb, Hypokalemia E87.6 [place] [id number] [place] [address] 52704- 3687 Feb, Intractable migraine without aura and without status migrainosus G43.019 and Other chest pain R07.89 [place] [id number] [place] [address] 98647- 8973 Feb, [place] [address] 60856- 8108 Feb, Osteoarthritis of spine with radiculopathy, lumbosacral region M47.27 [place] [address] 03924- 3916 Feb, Hypokalemia E87.6 [place] [address] [address] Feb, [facility] [id number] [place] [address] 86345- 0537 Feb, Primary insomnia F51.01 and Anxiety, generalized F41.1 [facility] [id number] [place] [address] 13006 -1565 Feb, Acute suppurative otitis media of both ears without spontaneous rupture of tympanic membranes, recurrence not specified H66.003 [facility] [id number] [place] [address] 58370- 7626 Feb, [facility] [id number] [place] [address] 33013- 1071 Jan, Osteoarthritis of spine with radiculopathy, lumbosacral region M47.27 [place] [id number] [place] [address] 40930- 5407 Jan, Primary insomnia F51.01 and Anxiety, generalized F41.1 [facility] [id number] [place] [address] 78989- 3886 Jan, Chronic pain due to trauma G89.21 ; Left otitis media with effusion H65.92 and Otalgia of left ear H92.02 [facility] [address] [address] Jan, Bilateral otitis media with effusion H65.93 [facility] [id number] [place] [address] 04522- 0994 Dec, [facility] [id number] [place] [address] 21997- 5643 Dec, Primary insomnia F51.01 and Anxiety, generalized F41.1 [facility] [id number] [place] [address] 80253- 6428 Nov, [facility] [id number] [place] [address] 65654- 4839 Nov, [place] [id number] [place] [address] 36938- 6742 13 Nov, 2016 Anxiety, generalized F41.1 [place] [address] 97002- 9928 12 Nov, 2016 Pernicious anemia D51.0 [place] [address] 13418- 0186 11 Nov, 2016 Primary insomnia F51.01 [place] [address] 57416- 5024 01 Nov, 2016 Encounter for well woman exam with routine gynecological exam Z01.419 ; Screening breast examination Z12.31 and Otalgia of left ear H92.02 [place] [address] 98228- 5582 15 Oct, 2016 [facility] [address] 48335 -0747 14 Oct, 2016 Insect bite (nonvenomous) of right upper arm, initial encounter S40.861A [place] [address] 97881- 1114 Oct, Pernicious anemia D51.0 [place] [address] 91812- 4876 07 Oct, 2016 Anxiety, generalized F41.1 and Pernicious anemia D51.0 [place] [address] 58409- 6179 Oct, Encounter to establish care with new doctor Z76.89 ; Moderate episode of recurrent major depressive disorder F33.1 ; Empty sella syndrome E23.6 ; Seasonal allergic rhinitis, unspecified allergic rhinitis trigger J30.2 ; Essential hypertension I10 and Osteoarthritis of spine with radiculopathy, lumbosacral region M47.27 [place] [address] 45533- 5272 Aug, [place] [id number] [place] [address] 41907- 3477 Aug, [place] [address] 55039- 4819 Aug, Anxiety, generalized F41.1 [place] [id number] [place] [address] 39029- 7423 08 Aug, 2016 [place] [address] 83728- 1072 Aug, Primary insomnia F51.01 ; Essential hypertension I10 ; Empty sella syndrome E23.6 and Chronic pain due to trauma G89.21 [place] [address] 27286- 4247 July, Primary insomnia F51.01 [facility] [place] [id number] [place] [address] 70679 -4530 July, Seasonal allergic rhinitis, unspecified allergic rhinitis trigger J30.2 and Acute suppurative otitis media of right ear without spontaneous rupture of tympanic membrane, recurrence not specified H66.001 [facility] [id number] [place] [address] 36597 -5171 July, Acute suppurative otitis media of left ear without spontaneous rupture of tympanic membrane, recurrence not specified H66.002 [place] [id number] [place] [address] 39124- 9384 July, [place] [id number] [place] [address] 31535- 5249 July, Anxiety, generalized F41.1 [place] [id number] [place] [address] 52008- 6459 Jun, [place] [id number] [place] [address] 44410- 5509 Jun, Primary insomnia F51.01 [place] [id number] [place] [address] 39820- 0089 Jun, Empty sella syndrome E23.6 ; Primary insomnia F51.01 and Hypokalemia E87.6 [facility] [id number] [place] [address] 76357- 7177 Jun, [facility] [id number] [place] [address] 98878- 1122 Jun, [facility] [id number] [place] [address] 29827- 7117 Jun, Empty sella syndrome E23.6 [facility] [id number] [place] [address] 78448- 9098 Jun, Anxiety, generalized F41.1 [facility] [id number] [place] [address] 19577- 7045 Jun, [facility] [id number] [place] [address] 88575- 5773 Jun, Empty sella syndrome E23.6 [facility] [id number] [place] [address] 53286- 5380 May, [facility] [id number] [place] [address] 65968- 2938 May, [facility] [id number] [place] [address] 37330- 0605 May, Empty sella syndrome E23.6 [facility] [id number] [place] [address] 61924- 1718 May, [facility] [id number] [place] [address] 00813- 3171 May, [facility] [id number] [place] [address] 82823- 0398 May, Primary insomnia F51.01 [facility] [id number] [place] [address] 64424- 7242 May, [facility] [id number] [place] [address] 66630- 4163 20 May, 2016 Nausea R11.0 ; Other headache syndrome G44.89 and Malignant hypertension I10 [facility] [id number] [place] [address] 20872- 1946 07 May, 2016 Anxiety, generalized F41.1 [facility] [id number] [place] [address] 28011- 8389 28 Apr, 2016 Major depressive disorder, recurrent episode, moderate F33.1 [facility] [id number] [place] [address] 08920- 4988 Apr, Moderate episode of recurrent major depressive disorder F33.1 [facility] [address] 286601- 9066 27 Apr, 2016 Other chronic postprocedural pain G89.28 [facility] [id number] [place] [address] 46704- 9796 15 Apr, 2016 Major depressive disorder, recurrent episode, moderate F33.1 [facility] [id number] [place] [address] 16064- 4040 07 Apr, 2016 Anxiety, generalized F41.1 [facility] [id number] [place] [address] 77564- 3296 03 Apr, 2016 [facility] [id number] [place] [address] 00155- 0162 Mar, Other chronic postprocedural pain G89.28 ; Status post craniotomy Z98.890 ; Encounter for drug screening Z02.83 and Hematuria R31.9 [facility] [id number] [place] [address] 82195- 5349 Mar, Major depressive disorder, recurrent episode, moderate F33.1 [facility] [id number] [place] [address] 06544- 2650 Mar, [facility] [id number] [place] [address] 92235- 5497 Mar, Anxiety, generalized F41.1 [place] [address], [place] [address]- 4853 10 Mar, 2016 Anxiety, generalized F41.1 and Pernicious anemia D51.0 [place] [address] [place] [address] 85608- 2215 Mar, 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 and Status post craniotomy Z98.890 [place] [id number] [place] [address] 55297- 8343 Mar, Primary insomnia F51.01 [place] [id number] [place] [address] 76193- 6157 Feb, [place] [id number] [place] [address] 90966- 3234 Feb, Encounter to establish care Z76.89 ; Status post craniotomy Z98.890 ; 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 ; Hypokalemia E87.6 ; Essential hypertension I10 ; Other hyperlipidemia E78.4 ; Pernicious anemia D51.0 ; Other depression F32.89 and Chronic nausea R11.0 IMMUNIZATIONS No Known Immunizations SOCIAL HISTORY Never Assessed REASON FOR VISIT Medication refill request PLAN OF CARE VITAL SIGNS MEDICATIONS Medication Instructions Dosage Frequency Start Date End Date Duration Status Potassium Chloride ER 10 MEQ Orally Once a day 1 tablet with food 24h 30 days Active RESULTS No Results PROCEDURES No Known procedures INSTRUCTIONS MEDICATIONS ADMINISTERED No Known Medications MEDICAL (GENERAL) HISTORY Type Description Date Medical History HTN Medical History Hypokalemia since cranioplasty in may 2015 Medical History Insomnia longstanding Ambien works at [employer] Medical History Hypercholesterolemia Medical History prenicious anemia [...] 6yrs Hospitalization History surgery only Hospitalization History [facility] 02/2017
--- OUTSIDE RECORDS SUMMARY | 2017-08-24 08:40 | XMS REPORT ---
Author Author OSBALDO CORRAL Organization [facility] Address [address] [place] [address] Care Team Providers Care Reinforcing Rod Layer Name Role Phone OSBALDO CORRAL Unavailable PROBLEMS Type Condition ICD9-CM Code UCK65-RP Code Onset Dates Condition Status SNOMED Code Problem Primary insomnia F51.01 Active 5890456 Problem Major depressive disorder, recurrent episode, moderate F33.1 Active 359842645 Problem Anxiety, generalized F41.1 Active 75070314 Problem Vitamin B12 deficiency anemia due to intrinsic factor deficiency D51.0 Active 51173353 Problem Migraine without status migrainosus, not intractable, unspecified migraine type G43.909 Active 30803305 Problem Essential hypertension I10 Active 10105540 Problem Chronic pain due to trauma G89.21 Active 164105152 Problem Adjustment disorder with mixed anxiety and depressed mood F43.23 Active 27771211 Problem Seasonal allergic rhinitis, unspecified allergic rhinitis trigger J30.2 Active 543667215 Problem Empty sella syndrome E23.6 Active 229152563 Problem 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 Active 80806370 Problem Pernicious anemia D51.0 Active 53259292 Problem Hypokalemia E87.6 Active 19498548 Problem Other hyperlipidemia E78.4 Active 63020223 ALLERGIES No Information ENCOUNTERS Encounter Location Date Diagnosis [facility] [address] [id number] [address] Jun, Acute frontal sinusitis, recurrence not specified J01.10 ; Sinus pressure J34.89 ; Post-nasal drip R09.82 and Sore throat J02.9 [facility] [address] [id number] [address] Jun, Primary insomnia F51.01 [facility] [id number] [address] May, Anxiety, generalized F41.1 and Osteoarthritis of spine with radiculopathy, lumbosacral region M47.27 [facility] [address] [address] May, Essential hypertension I10 ; 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 ; Empty sella syndrome E23.6 ; Pernicious anemia D51.0 ; Major depressive disorder, recurrent episode, moderate F33.1 ; Primary insomnia F51.01 ; Other hyperlipidemia E78.4 and Anxiety, generalized F41.1 [facility] [address] [address] May, Vitamin B12 deficiency anemia due to intrinsic factor deficiency D51.0 and Pernicious anemia D51.0 [facility] [address] [address] May, Migraine without status migrainosus, not intractable, unspecified migraine type G43.909 [facility] [address] [address] May, [facility] [address] [address] May, [facility] [address] [address] May, Osteoarthritis of spine with radiculopathy, lumbosacral region M47.27 and Primary insomnia F51.01 [facility] [address] [address] May, Osteoarthritis of spine with radiculopathy, lumbosacral region M47.27 and Anxiety, generalized F41.1 [facility] [address] [address] May, [place] [address] [address] Apr, [facility] [address] [id number] Apr, [place] [address] [address] 13 Apr, 2017 Anxiety, generalized F41.1 ; Major depressive disorder, recurrent episode, moderate F33.1 ; Moderate episode of recurrent major depressive disorder F33.1 and Adjustment disorder with mixed anxiety and depressed mood F43.23 [place] [address] [address] 13 Apr, 2017 Major depressive disorder, recurrent episode, moderate F33.1 ; Anxiety, generalized F41.1 ; Essential hypertension I10 ; Primary insomnia F51.01 and 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 [place] [id number]- [address] 09 Apr, 2017 Other chest pain R07.89 ; Sinus bradycardia R00.1 ; Essential hypertension I10 and Other hyperlipidemia E78.[address] [address] 08 Apr, 2017 Primary insomnia F51.01 [place] [address] [address] 06 Apr, 2017 [place] [address] [address] 02 Apr, 2017 Anxiety, generalized F41.[address] [address] Apr, Osteoarthritis of spine with radiculopathy, lumbosacral region M47.27 [place] [address] [address] Mar, Intractable migraine without aura and without status migrainosus G43.019 and Dyshidrotic hand dermatitis L30.1 [facility] [address] [address] Mar, Skin infection L08.[address] [place] [address] Mar, [facility] [id number] [place] [address] Mar, Skin lesion L98.9 [facility] [id number] [place] [address] 08 Mar, 2017 Primary insomnia F51.01 and Anxiety, generalized F41.1 [facility] [address] [address] Mar, Osteoarthritis of spine with radiculopathy, lumbosacral region M47.27 [place] [address] [address] Feb, [facility] [address] [address] Feb, [facility] [address] [address] Feb, Hypokalemia E87.6 [facility] [id number] [place] [address] Feb, Intractable migraine without aura and without status migrainosus G43.019 and Other chest pain R07.89 [facility] [id number] [place] [address] Feb, [facility] [id number] [place] [address] Feb, Osteoarthritis of spine with radiculopathy, lumbosacral region M47.27 [facility] [id number] [place] [address] Feb, Hypokalemia E87.6 [facility] [id number] [place] [address] Feb, [facility] [id number] [place] [address] Feb, Primary insomnia F51.01 and Anxiety, generalized F41.1 [facility] [id number] [place] [address] Feb, Acute suppurative otitis media of both ears without spontaneous rupture of tympanic membranes, recurrence not specified H66.003 [facility] [address] [address] Feb, [facility] [address] [address] Jan, Osteoarthritis of spine with radiculopathy, lumbosacral region M47.27 [place] [address] [address] Jan, Primary insomnia F51.01 and Anxiety, generalized F41.1 [facility] [address] [address] Jan, Chronic pain due to trauma G89.21 ; Left otitis media with effusion H65.92 and Otalgia of left ear H92.02 [facility] [address] [address] Jan, Bilateral otitis media with effusion H65.93 [facility] [id number] [place] [address] Dec, [facility] [address] [address] Dec, Primary insomnia F51.01 and Anxiety, generalized F41.1 [facility] [id number] [place] [address] Nov, [facility] [address] [address] 15 Nov, 2016 [facility] [address] [address] Nov, Anxiety, generalized F41.1 [facility] [address] [address] 12 Nov, 2016 Pernicious anemia D51.0 [place] [address] [address] 11 Nov, 2016 Primary insomnia F51.01 [place] [address] [address] Nov, Encounter for well woman exam with routine gynecological exam Z01.419 ; Screening breast examination Z12.31 and Otalgia of left ear H92.02 [place] [address] [address] 15 Oct, 2016 [facility] [address] [address] 14 Oct, 2016 Insect bite (nonvenomous) of right upper arm, initial encounter S40.861A [place] [address] [address] Oct, Pernicious anemia D51.0 [place] [address] [address] Oct, Anxiety, generalized F41.1 and Pernicious anemia D51.0 [place] [address] [address] Oct, Encounter to establish care with new doctor Z76.89 ; Moderate episode of recurrent major depressive disorder F33.1 ; Empty sella syndrome E23.6 ; Seasonal allergic rhinitis, unspecified allergic rhinitis trigger J30.2 ; Essential hypertension I10 and Osteoarthritis of spine with radiculopathy, lumbosacral region M47.27 [place] [address] [address] Aug, [place] [address] [address] Aug, [place] [address] [address] Aug, Anxiety, generalized F41.1 [place] [id number] [place] [address] 08 Aug, 2016 [place] [address] [address] Aug, Primary insomnia F51.01 ; Essential hypertension I10 ; Empty sella syndrome E23.6 and Chronic pain due to trauma G89.21 [place] [address] [address] July, Primary insomnia F51.01 [facility] [place] [address] [address] July, Seasonal allergic rhinitis, unspecified allergic rhinitis trigger J30.2 and Acute suppurative otitis media of right ear without spontaneous rupture of tympanic membrane, recurrence not specified H66.001 [facility] [place] [address] [address] July, Acute suppurative otitis media of left ear without spontaneous rupture of tympanic membrane, recurrence not specified H66.002 [place] [address] [address] July, [place] [address] [address] July, Anxiety, generalized F41.1 [place] [address] [address] Jun, [place] [id number] [place] [address] Jun, Primary insomnia F51.01 [place] [address] [address] Jun, Empty sella syndrome E23.6 ; Primary insomnia F51.01 and Hypokalemia E87.6 [place] [address] [address] Jun, [place] [address] [address] 07 Jun, 2016 [facility] [id number] [place] [address]- [address] Jun, Empty sella syndrome E23.6 [facility] [id number] [place] [address]- [address] Jun, Anxiety, generalized F41.1 [facility] [id number] [place] [address]- [address] Jun, [facility] [id number] [place] [address]- 479[address] Jun, Empty sella syndrome E23.6 [facility] [id number] [place] [address] May, [facility] [id number] [place] [address]- [address] May, [facility] [id number] [place] [address] 10[address]- 4458 May, Empty sella syndrome E23.6 [facility] [id number] [place] [address]- [address]208 May, [facility] [id number] [place] [address]- 6[address] May, [facility] [id number] [place] [address]- [address] May, Primary insomnia F51.01 [facility] [id number] [place] [address]- [address] May, [facility] [id number] [place] [address]- 0[address] May, Nausea R11.0 ; Other headache syndrome G44.89 and Malignant hypertension I10 [facility] [id number] [place] [address]- [address] 07 May, 2016 Anxiety, generalized F41.1 [facility] [address] [place] [address]- [address] Apr, Major depressive disorder, recurrent episode, moderate F33.1 [facility] [id number] [place] [address] 91140- 0896 28 Apr, 2016 Moderate episode of recurrent major depressive disorder F33.1 [facility] [id number] [place] [address] 9[address]45- 5162 27 Apr, 2016 Other chronic postprocedural pain G89.28 [place] [id number] [place] [address] 89[address]- 6487 15 Apr, 2016 Major depressive disorder, recurrent episode, moderate F33.1 [place] [id number] [place] [address]- [address] 07 Apr, 2016 Anxiety, generalized F41.1 [place] [id number] [place] [address]- 1769 Apr, [place] [id number] [place] [address] 8[address]99- 18[address] Mar, Other chronic postprocedural pain G89.28 ; Status post craniotomy Z98.890 ; Encounter for drug screening Z02.83 and Hematuria R31.9 [place] [id number] [place] [address] 21640- 1533 Mar, Major depressive disorder, recurrent episode, moderate F33.1 [facility] [address] [place] [address] 70[address]- 8234 Mar, [place] [id number] [place] [address] 22128- 6523 Mar, Anxiety, generalized F41.1 [place] [id number] [place] [address] 19347- 2598 Mar, Anxiety, generalized F41.1 and Pernicious anemia D51.0 [place] [address] [place] [address] Mar, 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 and Status post craniotomy Z98.890 [facility] [id number] [address] Mar, Primary insomnia F51.01 [facility] [id number] [address] Feb, [facility] [id number] [address] Feb, Encounter to establish care Z76.89 ; [...] Frequency Start Date End Date Duration Status Xanax 0.5 MG Orally Three times a day 1 tablet 8h 28 days Active RESULTS No Results PROCEDURES [...] 6yrs Hospitalization History surgery only Hospitalization History [facility] 02/2017
--- OUTSIDE RECORDS SUMMARY | 2017-08-24 08:40 | XMS REPORT ---
Author Author CORRALOSBALDO New Organization [facility] Address [address] [place] [address] Care Team Providers Care Baby Attendant Name Role Phone OSBALDO CORRAL Unavailable PROBLEMS Type Condition ICD9-CM Code EXT19-CL Code Onset Dates Condition Status SNOMED Code Problem Anxiety, generalized F41.1 Active 78539486 Problem Other headache syndrome G44.89 Active 290119891 Problem Major depressive disorder, recurrent episode, moderate F33.1 Active 618557776 Problem Migraine without status migrainosus, not intractable, unspecified migraine type G43.909 Active 05079682 Problem Adjustment disorder with mixed anxiety and depressed mood F43.23 Active 00122292 Problem Essential hypertension I10 Active 24394496 Problem Chronic pain due to trauma G89.21 Active 859944151 Problem Intractable migraine without aura and without status migrainosus G43.019 Active 849780980 Problem Seasonal allergic rhinitis, unspecified allergic rhinitis trigger J30.2 Active 778995327 Problem Hypokalemia E87.6 Active 01846148 Problem Pernicious anemia D51.0 Active 32272982 Problem Other hyperlipidemia E78.4 Active 83530963 Problem Empty sella syndrome E23.6 Active 010200095 Problem Other chronic postprocedural pain G89.28 Active 786183647 Problem 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 Active 11676572 Problem Primary insomnia F51.01 Active 1356254 ALLERGIES No Information ENCOUNTERS Encounter Location Date Diagnosis [facility] [address] [facility] [id number] [address] May, [facility] [address] [id number] [address] May, Migraine without status migrainosus, not intractable, unspecified migraine type G43.909 [facility] [address] [id number], [place] [address] May, [place] [address] [address] May, [place] [address] [place] [address] May, Osteoarthritis of spine with radiculopathy, lumbosacral region M47.27 and Primary insomnia F51.[address] [address] May, Osteoarthritis of spine with radiculopathy, lumbosacral region M47.27 and Anxiety, generalized F41.[address] [address] May, [place] [address] [address] Apr, [address] [address] Apr, [place] [address] [address] Apr, Anxiety, generalized F41.1 ; Major depressive disorder, recurrent episode, moderate F33.1 ; Moderate episode of recurrent major depressive disorder F33.1 and Adjustment disorder with mixed anxiety and depressed mood F43.[address] [address] Apr, Major depressive disorder, recurrent episode, moderate F33.1 ; Anxiety, generalized F41.1 ; Essential hypertension I10 ; Primary insomnia F51.01 and 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 [address] 09 Apr, 2017 Other chest pain R07.89 ; Sinus bradycardia R00.1 ; Essential hypertension I10 and Other hyperlipidemia E78.[address] [address] 08 Apr, 2017 Primary insomnia F51.01 [facility] [id number] [place] [address] Apr, [facility] [address] [address] Apr, Anxiety, generalized F41.1 [place] [address] [address] Apr, Osteoarthritis of spine with radiculopathy, lumbosacral region M47.27 [place] [id number] [place] [address] Mar, Intractable migraine without aura and without status migrainosus G43.019 and Dyshidrotic hand dermatitis L30.1 [facility] [address] [address] Mar, Skin infection L08.9 [place] [address] [address] Mar, [facility] [address] [address] Mar, Skin lesion L98.9 [facility] [id number] [place] [address]- [address] Mar, Primary insomnia F51.01 and Anxiety, generalized F41.1 [place] [id number] [place] [address]- [address] Mar, Osteoarthritis of spine with radiculopathy, lumbosacral region M47.27 [place] [address] [address] Feb, [place] [address] [address] Feb, [facility] [id number] [place] [address]- [address] Feb, Hypokalemia E87.6 [facility] [id number] [place] [address]- 6770 Feb, Intractable migraine without aura and without status migrainosus G43.019 and Other chest pain R07.89 [facility] [id number] [place] [address] 0[address]47- [address] Feb, [place] [address] [address] Feb, Osteoarthritis of spine with radiculopathy, lumbosacral region M47.27 [place] [id number] [place] [address]- [address] Feb, Hypokalemia E87.6 [place] [id number] [place] [address]44- 3597 Feb, [place] [address] [address]- [address] Feb, Primary insomnia F51.01 and Anxiety, generalized F41.1 [facility] [id number] [place] [address] Feb, Acute suppurative otitis media of both ears without spontaneous rupture of tympanic membranes, recurrence not specified H66.003 [place] [id number] [place] [address] 19[address]- [address] Feb, [place] [id number] [place] [address] 77[address]- [address] Jan, Osteoarthritis of spine with radiculopathy, lumbosacral region M47.27 [place] [id number] [place] [address] 88258- [address] 07 Jan, 2017 Primary insomnia F51.01 and Anxiety, generalized F41.1 [facility] [id number] [place] [address]- 85[address] 02 Jan, 2017 Chronic pain due to trauma G89.21 ; Left otitis media with effusion H65.92 and Otalgia of left ear H92.02 [facility] [id number] [place] [address] Jan, Bilateral otitis media with effusion H65.93 [place] [address] [address]- [address] Dec, [place] [address] [address] Dec, Primary insomnia F51.01 and Anxiety, generalized F41.1 [place] [address] [address]- [address] Nov, [place] [address] [address]- [address] Nov, [place] [address] [address] Nov, Anxiety, generalized F41.1 [place] [address] [address]- [address] Nov, Pernicious anemia D51.0 [place] [address] [address]- [address] Nov, Primary insomnia F51.01 [place] [id number] [place] [address] Nov, Encounter for well woman exam with routine gynecological exam Z01.419 ; Screening breast examination Z12.31 and Otalgia of left ear H92.02 [place] [id number] [place] [address] 8[address]- [address] Oct, [facility] [address] [address] Oct, Insect bite (nonvenomous) of right upper arm, initial encounter S40.861A [place] [address] [address] Oct, Pernicious anemia D51.0 [place] [id number] [place] [address]- 4424 Oct, Anxiety, generalized F41.1 and Pernicious anemia D51.0 [place] [id number] [place] [address] 5[address]- [address] Oct, Encounter to establish care with new doctor Z76.89 ; Moderate episode of recurrent major depressive disorder F33.1 ; Empty sella syndrome E23.6 ; Seasonal allergic rhinitis, unspecified allergic rhinitis trigger J30.2 ; Essential hypertension I10 and Osteoarthritis of spine with radiculopathy, lumbosacral region M47.27 [place] [address] [address]- [address] Aug, [place] [address] [address]- [address] Aug, [place] [address] 47[address]- [address] Aug, Anxiety, generalized F41.1 [place] [id number] [place] [address] 8[address]67- [address] 08 Aug, 2016 [place] [address] [address]- [address] Aug, Primary insomnia F51.01 ; Essential hypertension I10 ; Empty sella syndrome E23.6 and Chronic pain due to trauma G89.21 [place] [id number] [place] [address] 60[address]- [address] July, Primary insomnia F51.01 [facility] [id number] [place] [address] July, Seasonal allergic rhinitis, unspecified allergic rhinitis trigger J30.2 and Acute suppurative otitis media of right ear without spontaneous rupture of tympanic membrane, recurrence not specified H66.001 [facility] [id number] [place] [address] July, Acute suppurative otitis media of left ear without spontaneous rupture of tympanic membrane, recurrence not specified H66.002 [facility] [id number] [place] [address] 90409- 5855 July, [facility] [id number] [place] [address] 79186- 4616 July, Anxiety, generalized F41.1 [facility] [address] 6[address]- [address] Jun, [facility] [address] [address]- [address] Jun, Primary insomnia F51.01 [facility] [address] [address]- 6[address] Jun, Empty sella syndrome E23.6 ; Primary insomnia F51.01 and Hypokalemia E87.6 [facility] [address] [address]- [address] Jun, [facility] [address] 19[address]- 2[address] Jun, [facility] [address] [address]- 1209 Jun, Empty sella syndrome E23.6 [facility] [id number] [place] [address] 8[address]43- 3210 Jun, Anxiety, generalized F41.1 [facility] [id number] [place] [address] 08121- 0229 Jun, [facility] [id number] [place] [address] 68[address]- 9500 Jun, Empty sella syndrome E23.6 [facility] [id number] [place] [address] 06139- 9773 May, [facility] [id number] [place] [address]20- 6853 May, [facility] [address] [place] [address]- [address] 30 May, 2016 Empty sella syndrome E23.6 [facility] [id number] [place] [address] 02562- 0401 May, [facility] [id number] [place] [address] 78413- 4959 May, [facility] [address] [address]- [address]44 May, Primary insomnia F51.01 [facility] [address] 827[address]- [address]27 May, [facility] [address] [address]- 1745 May, Nausea R11.0 ; Other headache syndrome G44.89 and Malignant hypertension I10 [place] [address] [address]- [address]88 May, Anxiety, generalized F41.1 [facility] [id number] [place] [address] 20252- 6970 28 Apr, 2016 Major depressive disorder, recurrent episode, moderate F33.1 [facility] [id number] [place] [address] 08066- 3829 28 Apr, 2016 Moderate episode of recurrent major depressive disorder F33.1 [facility] [id number] [place] [address] 76995- 6877 27 Apr, 2016 Other chronic postprocedural pain G89.28 [facility] [id number] [place] [address] 64387- 4908 15 Apr, 2016 Major depressive disorder, recurrent episode, moderate F33.1 [facility] [id number] [place] [address] 27498- 9105 07 Apr, 2016 Anxiety, generalized F41.1 [facility] [id number] [place] [address] 10689- 1029 03 Apr, 2016 [place] [id number] [place] [address] 12152- 8023 Mar, Other chronic postprocedural pain G89.28 ; Status post craniotomy Z98.890 ; Encounter for drug screening Z02.83 and Hematuria R31.9 [place] [id number] [place] [address] 63259- 97[address] Mar, Major depressive disorder, recurrent episode, moderate F33.1 [place] [address] 45[address]- 3145 Mar, [place] [address] 708[address]- 1241 Mar, Anxiety, generalized F41.1 [place] [id number] [place] [address] 68417- 1314 Mar, Anxiety, generalized F41.1 and Pernicious anemia D51.0 [place] [id number] [place] [address] 57933- 3817 Mar, 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 and Status post craniotomy Z98.890 [place] [id number] [place] [address] 36030- 1088 Mar, Primary insomnia F51.01 [place] [id number] [place] [address] 05697- 0434 Feb, [place] [address] [address]- 1993 Feb, Encounter to establish care Z76.89 ; Status post craniotomy Z98.890 ; 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 ; Hypokalemia E87.6 ; Essential hypertension I10 ; Other hyperlipidemia E78.4 ; Pernicious anemia D51.0 ; Other depression F32.89 and Chronic nausea R11.0 IMMUNIZATIONS No Known Immunizations SOCIAL HISTORY Never Assessed REASON FOR VISIT Requests return call PLAN OF CARE VITAL SIGNS MEDICATIONS Unknown [...] 6yrs Hospitalization History surgery only Hospitalization History [facility] 02/2017
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
--- OUTSIDE RECORDS SUMMARY | 2017-08-24 08:42 | XMS REPORT ---
Author Author OSBALDO CORRAL Organization [facility] Address [address] [place] [address] Care Team Providers Care Ceramic Chemist Name Role Phone OSBALDO CORRAL Unavailable PROBLEMS Type Condition ICD9-CM Code QHP27-OL Code Onset Dates Condition Status SNOMED Code Problem Primary insomnia F51.01 Active 7287094 Problem Major depressive disorder, recurrent episode, moderate F33.1 Active 035730929 Problem Anxiety, generalized F41.1 Active 24026348 Problem Vitamin B12 deficiency anemia due to intrinsic factor deficiency D51.0 Active 05214298 Problem Migraine without status migrainosus, not intractable, unspecified migraine type G43.909 Active 35670759 Problem Essential hypertension I10 Active 61286027 Problem Chronic pain due to trauma G89.21 Active 351519087 Problem Adjustment disorder with mixed anxiety and depressed mood F43.23 Active 28783354 Problem Seasonal allergic rhinitis, unspecified allergic rhinitis trigger J30.2 Active 149699796 Problem Empty sella syndrome E23.6 Active 880975961 Problem 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 Active 63579428 Problem Pernicious anemia D51.0 Active 81381049 Problem Hypokalemia E87.6 Active 62271997 Problem Other hyperlipidemia E78.4 Active 34916805 ALLERGIES No Information ENCOUNTERS Encounter Location Date Diagnosis [facility] [address] [id number], [place] [address] Jun, Acute frontal sinusitis, recurrence not specified J01.10 ; Sinus pressure J34.89 ; Post-nasal drip R09.82 and Sore throat J02.9 [facility] [address] [id number], [place] [address] Jun, Primary insomnia F51.01 [facility] [address] [id number], [place] [address] May, Anxiety, generalized F41.1 and Osteoarthritis of spine with radiculopathy, lumbosacral region M47.27 [facility] [address] [address] May, Essential hypertension I10 ; 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 ; Empty sella syndrome E23.6 ; Pernicious anemia D51.0 ; Major depressive disorder, recurrent episode, moderate F33.1 ; Primary insomnia F51.01 ; Other hyperlipidemia E78.4 and Anxiety, generalized F41.1 [facility] [address] [address] May, Vitamin B12 deficiency anemia due to intrinsic factor deficiency D51.0 and Pernicious anemia D51.0 [facility] [address] [address] May, Migraine without status migrainosus, not intractable, unspecified migraine type G43.909 [facility] [address] [address] May, [facility] [address] [address] May, [facility] [address] [address] May, Osteoarthritis of spine with radiculopathy, lumbosacral region M47.27 and Primary insomnia F51.01 [facility] [address] [address] May, Osteoarthritis of spine with radiculopathy, lumbosacral region M47.27 and Anxiety, generalized F41.1 [facility] [address] [address] May, [place] [address] [address] Apr, [facility] [address] [id number] Apr, [place] [address] [address] 13 Apr, 2017 Anxiety, generalized F41.1 ; Major depressive disorder, recurrent episode, moderate F33.1 ; Moderate episode of recurrent major depressive disorder F33.1 and Adjustment disorder with mixed anxiety and depressed mood F43.23 [place] [address] [address] 13 Apr, 2017 Major depressive disorder, recurrent episode, moderate F33.1 ; Anxiety, generalized F41.1 ; Essential hypertension I10 ; Primary insomnia F51.01 and 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 [place] [id number] 09 Apr, 2017 Other chest pain R07.89 ; Sinus bradycardia R00.1 ; Essential hypertension I10 and Other hyperlipidemia E78.[address] [address] 08 Apr, 2017 Primary insomnia F51.01 [place] [address] [address] 06 Apr, 2017 [place] [address] [address] 02 Apr, 2017 Anxiety, generalized F41.[address] [address] Apr, Osteoarthritis of spine with radiculopathy, lumbosacral region M47.27 [place] [address] [address] Mar, Intractable migraine without aura and without status migrainosus G43.019 and Dyshidrotic hand dermatitis L30.1 [facility] [address] [address] Mar, Skin infection L08.[address] [place] [address] Mar, [facility] [id number] [place] [address] Mar, Skin lesion L98.9 [facility] [id number] [place] [address] 08 Mar, 2017 Primary insomnia F51.01 and Anxiety, generalized F41.1 [facility] [address] [address] Mar, Osteoarthritis of spine with radiculopathy, lumbosacral region M47.27 [place] [address] [address] Feb, [facility] [address] [address] Feb, [facility] [address] [address] Feb, Hypokalemia E87.6 [facility] [id number] [place] [address] Feb, Intractable migraine without aura and without status migrainosus G43.019 and Other chest pain R07.89 [facility] [id number] [place] [address] Feb, [facility] [id number] [place] [address] Feb, Osteoarthritis of spine with radiculopathy, lumbosacral region M47.27 [facility] [id number] [place] [address] Feb, Hypokalemia E87.6 [facility] [id number] [place] [address] Feb, [facility] [id number] [place] [address] Feb, Primary insomnia F51.01 and Anxiety, generalized F41.1 [facility] [id number] [place] [address] Feb, Acute suppurative otitis media of both ears without spontaneous rupture of tympanic membranes, recurrence not specified H66.003 [facility] [address] [address] Feb, [facility] [address] [address] Jan, Osteoarthritis of spine with radiculopathy, lumbosacral region M47.27 [place] [address] [address] Jan, Primary insomnia F51.01 and Anxiety, generalized F41.1 [facility] [address] [address] Jan, Chronic pain due to trauma G89.21 ; Left otitis media with effusion H65.92 and Otalgia of left ear H92.02 [facility] [address] [address] Jan, Bilateral otitis media with effusion H65.93 [facility] [id number] [place] [address] Dec, [facility] [address] [address] Dec, Primary insomnia F51.01 and Anxiety, generalized F41.1 [facility] [id number] [place] [address] Nov, [facility] [address] [address] 15 Nov, 2016 [facility] [address] [address] Nov, Anxiety, generalized F41.1 [facility] [address] [address] 12 Nov, 2016 Pernicious anemia D51.0 [place] [address] [address] 11 Nov, 2016 Primary insomnia F51.01 [place] [address] [address] Nov, Encounter for well woman exam with routine gynecological exam Z01.419 ; Screening breast examination Z12.31 and Otalgia of left ear H92.02 [place] [address] [address] 15 Oct, 2016 [facility] [address] [address] 14 Oct, 2016 Insect bite (nonvenomous) of right upper arm, initial encounter S40.861A [place] [address] [address] Oct, Pernicious anemia D51.0 [place] [address] [address] Oct, Anxiety, generalized F41.1 and Pernicious anemia D51.0 [place] [address] [address] Oct, Encounter to establish care with new doctor Z76.89 ; Moderate episode of recurrent major depressive disorder F33.1 ; Empty sella syndrome E23.6 ; Seasonal allergic rhinitis, unspecified allergic rhinitis trigger J30.2 ; Essential hypertension I10 and Osteoarthritis of spine with radiculopathy, lumbosacral region M47.27 [place] [address] [address] Aug, [place] [address] [address] Aug, [place] [address] [address] Aug, Anxiety, generalized F41.1 [place] [id number] [place] [address] 08 Aug, 2016 [place] [address] [address] Aug, Primary insomnia F51.01 ; Essential hypertension I10 ; Empty sella syndrome E23.6 and Chronic pain due to trauma G89.21 [place] [address] [address] July, Primary insomnia F51.01 [facility] [place] [address] [address] July, Seasonal allergic rhinitis, unspecified allergic rhinitis trigger J30.2 and Acute suppurative otitis media of right ear without spontaneous rupture of tympanic membrane, recurrence not specified H66.001 [facility] [place] [address] [address] July, Acute suppurative otitis media of left ear without spontaneous rupture of tympanic membrane, recurrence not specified H66.002 [place] [address] [address] July, [place] [address] [address] July, Anxiety, generalized F41.1 [place] [address] [address] Jun, [place] [id number] [place] [address] Jun, Primary insomnia F51.01 [place] [address] [address] Jun, Empty sella syndrome E23.6 ; Primary insomnia F51.01 and Hypokalemia E87.6 [place] [address] [address] Jun, [place] [address], [place] [address] 07 Jun, 2016 [facility] [id number] [place] [address] Jun, Empty sella syndrome E23.6 [facility] [id number] [place] [address]- [address] Jun, Anxiety, generalized F41.1 [facility] [id number] [place] [address]- [address] Jun, [facility] [id number] [place] [address]- [address] Jun, Empty sella syndrome E23.6 [facility] [id number] [place] [address]- [address] May, [facility] [id number] [place] [address] May, [facility] [id number] [place] [address]- [address] May, Empty sella syndrome E23.6 [facility] [id number] [place] [address]- [address] May, [facility] [id number] [place] [address]- [address] May, [facility] [id number] [place] [address]- [address] May, Primary insomnia F51.01 [facility] [id number] [place] [address]- [address] May, [facility] [id number] [place] [address]- [address] May, Nausea R11.0 ; Other headache syndrome G44.89 and Malignant hypertension I10 [facility] [id number] [place] [address]- [address] 07 May, 2016 Anxiety, generalized F41.1 [facility] [address] [place] [address]- [address] Apr, Major depressive disorder, recurrent episode, moderate F33.1 [facility] [id number] [place] [address]- [address] 28 Apr, 2016 Moderate episode of recurrent major depressive disorder F33.1 [facility] [id number] [place] [address] 7[address]- [address] 27 Apr, 2016 Other chronic postprocedural pain G89.28 [place] [id number] [place] [address]- [address]69 15 Apr, 2016 Major depressive disorder, recurrent episode, moderate F33.1 [place] [id number] [place] [address]- [address] 07 Apr, 2016 Anxiety, generalized F41.1 [place] [id number] [place] [address] 00[address]- [address]907 Apr, [place] [id number] [place] [address]- [address] Mar, Other chronic postprocedural pain G89.28 ; Status post craniotomy Z98.890 ; Encounter for drug screening Z02.83 and Hematuria R31.9 [place] [id number] [place] [address]- [address] Mar, Major depressive disorder, recurrent episode, moderate F33.1 [facility] [id number] [place] [address]24- 5880 Mar, [place] [id number] [place] [address] 21119- 0718 Mar, Anxiety, generalized F41.1 [place] [id number] [place] [address] 18992- 4746 Mar, Anxiety, generalized F41.1 and Pernicious anemia D51.0 [place] [address] [address] Mar, 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 and Status post craniotomy Z98.890 [facility] [address] [id number], [place] [address] Mar, Primary insomnia F51.01 [facility] [address] [id number], [place] [address] Feb, [facility] [address] [id number], [place] [address] Feb, Encounter to establish care Z76.89 ; [...] Frequency Start Date End Date Duration Status BD Syringe/Needle 23G X 1 For use with injectable B12 Mar, 30 days Active RESULTS No Results PROCEDURES [...] 6yrs Hospitalization History surgery only Hospitalization History [facility] 02/2017
[2017-08-24] MEDS ORDERED: LACTATED RINGERS 1,000 ML IV ONE (09:23)
[2017-08-24] MEDS ORDERED: diphenhydrAMINE 25 MG TAB (BENADRYL) PO ONE (09:30)
[2017-08-24] MEDS ORDERED: PROCHLORPERAZINE 10 MG/2ML INJ (COMPAZINE) IV ONE (09:30)
[2017-08-24] MEDS ORDERED: ONDANSETRON 4 MG/2 ML (SDV) Z0FRAN IVP ONE (09:30)
[2017-08-24] MEDS ORDERED: fentaNYL INJECTION 100 MCG/2 ML AMP IVP ONE (09:30)
--- NOTE | 2017-08-24 09:32 | ED Headache ---
General Chief Complaint: Head/Cervical Problems Stated Complaint: FLORSE,NAUSEA,DIZZY Nursing Triage Note: Pt reports FLORES and nausea x2 days. Pt reports pain unrelieved by ibuprofen and percocet. Pt has hx craniotomoy and cranioplasty 3 yrs ago. Nursing Sepsis Screen: No Definite Risk History of Present Illness Date Seen by Provider: August 24, 2017 Time Seen by Provider: 09:17 Initial Comments Patient presents to the ER by private conveyance with a chief complaint of 2 days now headache that is global, pressure and severe. She has tried her Percocet, ibuprofen and has had no relief. Her last dose of ibuprofen was 800 mg prior to coming in. She uses 7.5 mg Percocet. She is having nausea but no vomiting. No fevers, chills, cough, diarrhea, constipation. She has a history of migraines most of her life but 2 years ago she had to have a craniotomy for a colloid cyst in the third ventricle. Since then she's had a few other episodes of hydrocephalus. She's had normal gait and walking although the time she feels a little dizzy like the room is spinning. She has a known increased fluid in her left ear and has been referred to an [place]- neurologist to have this evaluated. She is not on steroids or nasal steroids. She has not been on antibiotics recently. She says this headache is different in presentation and worse than her usual headaches area is not throbbing. She is having photo and phonophobia. Allergies and Home Medications Allergies Coded Allergies: Sulfa (Sulfonamide Antibiotics) (Verified Allergy, Unknown, 05/24/16) divalproex sodium (Verified Allergy, Unknown, 05/24/16) hydromorphone (Unverified Allergy, Unknown, 08/24/17) iodine (Verified Allergy, Unknown, 05/24/16) Home Medications Alprazolam 0.5 Mg Tablet, 0.5 MG PO TID PRN for ANXIETY, (Reported) Aspirin 81 Mg Tablet.dr, 81 MG PO HS, (Reported) Cholecalciferol (Vitamin D3) 400 Unit Capsule, 400 UNIT PO DAILY, (Reported) Cyanocobalamin 1,000 Mcg/Ml Inj, 1,000 MCG IJ MONTHLY, (Reported) Duloxetine HCl 30 Mg Capsule.dr, 30 MG PO DAILY, (Reported) Folic Acid 0.4 Mg Tablet, 0.4 MG PO DAILY, (Reported) Ibuprofen 200 Mg Tablet, 600-800 MG PO Q6H PRN for PAIN-MILD, (Reported) Lisinopril 40 Mg Tablet, 40 MG PO DAILY, (Reported) Metoprolol Tartrate 25 Mg Tablet, 25 MG PO HS, (Reported) Ondansetron 4 Mg Tab.rapdis, 4 MG PO Q4H Prescribed by: MARJAN STOLL on 06/19/17 1206 Potassium Chloride 10 Meq Tab.er.prt, 10 MEQ PO 1600, (Reported) Pravastatin Sodium 80 Mg Tablet, 80 MG PO HS, (Reported) Prochlorperazine Maleate 10 Mg Tablet, 10 MG PO Q6H PRN for NAUSEA/VOMITING-2ND LINE Prescribed by: MARJAN STOLL on 06/19/17 1206 Tizanidine HCl 4 Mg Tablet, 4 MG PO TID PRN for MUSCLE SPASMS, (Reported) Zolpidem Tartrate 10 Mg Tablet, 10 MG PO HS PRN for SLEEP, (Reported) Patient Home Medication List Home Medication List Reviewed: Yes Review of Systems Constitutional: chills; No diaphoresis, No fever Eyes: Denies Blindness, Denies Blurred Vision; Photophobia Ears, Nose, Mouth, Throat: denies ear pain, denies ear discharge, denies nose pain, denies nose discharge, denies epistaxis Respiratory: No cough, No short of breath, No wheezing Cardiovascular: No chest pain, No edema, No Hx of Intervention, No palpitations Gastrointestinal: No abdominal pain, No constipation, No diarrhea; nausea; No vomiting Genitourinary: No discharge, No dysuria Musculoskeletal: No back pain, No joint pain Skin: No pruritus, No rash Psychiatric/Neurological: Headache; Denies Numbness, Denies Paresthesia, Denies Pre-Existing Deficit, Denies Seizure, Denies Tremors, Denies Weakness Past Cerjgfs-Nbsvxu-Tvhanr Hx Patient Social History Alcohol Use: Denies Use Recreational Drug Use: No Smoking Status: Current Everyday Smoker Type Used: Cigarettes Recent Foreign Travel: No Contact w/Someone Who Travel: No Recent Infectious Disease Expo: No Recent Hopitalizations: No Seasonal Allergies Seasonal Allergies: Yes Past Medical History Surgeries: Yes (COLLOID CYST REMOVED FROM 3RD VENTRICLE; CARDIAC CATH 2011-- NORMAL) Cardiac, Gallbladder, Hysterectomy, Neurological, Tonsillectomy Respiratory: No Cardiac: Yes (MVP) Heart Murmur, High Cholesterol, Hypertension, Valvular Heart Disease Neurological: Yes (BRAIN SURGERY X 2 FOR COLLOID CYST 3RD VENTRICLE) Headaches /Migraines PATIENT SUPPORT SPECIALIST History: Hysterectomy Gastrointestinal: No Musculoskeletal: Yes (Craniotomy with hardware) Chronic Back Pain Endocrine: No HEENT: Yes (FLUID BEHING EAR DRUMS--BEING EVALUATED FOR POSSIBLE CSF LEAK) Cancer: No Psychosocial: Yes Anxiety, Depression Integumentary: No Blood Disorders: No Family Medical History No Pertinent Family Hx Physical Exam Vital Signs Vital Signs - First Documented 08/24/17 08:43 Temp 97.0 Pulse 55 Resp 18 B/P (MAP) 169/85 (113) Pulse Ox 98 O2 Delivery Room Air Capillary Refill : Less Than 3 Seconds General Appearance: WD/WN, mild distress HEENT: PERRL/EOMI, normal ENT inspection, pharynx normal (oral mucosa is mildly dry), other (left TM with clear serous effusion) Neck: non-tender, full range of motion, supple, normal inspection Cardiovascular: normal peripheral pulses, regular rate, rhythm, no edema, no murmur Respiratory: chest non-tender, lungs clear, normal breath sounds, no respiratory distress, no accessory muscle use Back: normal inspection, no vertebral tenderness Extremities: normal range of motion, normal inspection, no pedal edema, no calf tenderness, normal capillary refill Psychiatric: alert, oriented x 3 Crainal Nerves: normal hearing (chronically decreased in the left ear), normal speech, PERRL Coordination/Gait: normal gait Motor/Sensory: no motor deficit, no sensory deficit, no pronator drift, other ( cranial nerves II through XII are normal as tested) Skin: normal color, warm/dry Lymphatic: no adenopathy Progress/Results/Core Measures Results/Orders Lab Results Laboratory Tests Test 08/24/17 09:55 Range/Units White Blood Count 9.6 4.3-11.0 10^3/uL Red Blood Count 4.16 L 4.35-5.85 10^6/uL Hemoglobin 13.7 11.5-16.0 G/DL Hematocrit 39 35-52 % Mean Corpuscular Volume 93 80-99 FL Mean Corpuscular Hemoglobin 33 25-34 PG Mean Corpuscular Hemoglobin Concent 36 32-36 G/DL Red Cell Distribution Width 12.8 10.0-14.5 % Platelet Count 299 130-400 10^3/uL Mean Platelet Volume 9.1 7.4-10.4 FL Neutrophils (%) (Auto) 73 42-75 % Lymphocytes (%) (Auto) 19 12-44 % Monocytes (%) (Auto) 7 0-12 % Eosinophils (%) (Auto) 1 0-10 % Basophils (%) (Auto) 1 0-10 % Neutrophils # (Auto) 7.0 1.8-7.8 X 10^3 Lymphocytes # (Auto) 1.9 1.0-4.0 X 10^3 Monocytes # (Auto) 0.6 0.0-1.0 X 10^3 Eosinophils # (Auto) 0.1 0.0-0.3 10^3/uL Basophils # (Auto) 0.1 0.0-0.1 10^3/uL Sodium Level 135 135-145 MMOL/L Potassium Level 3.8 3.6-5.0 MMOL/L Chloride Level 100 98-107 MMOL/L Carbon Dioxide Level 23 21-32 MMOL/L Anion Gap 12 5-14 MMOL/L Blood Urea Nitrogen 9 7-18 MG/DL Creatinine 1.07 0.60-1.30 MG/DL Estimat Glomerular Filtration Rate 54 BUN/Creatinine Ratio 8 Glucose Level 94 70-105 MG/DL Calcium Level 9.9 8.5-10.1 MG/DL Magnesium Level 2.4 1.8-2.4 MG/DL Total Bilirubin 0.6 0.1-1.0 MG/DL Aspartate Amino Transf (AST/SGOT) 15 5-34 U/L Alanine Aminotransferase (ALT/SGPT) 16 0-55 U/L Alkaline Phosphatase 44 40-136 U/L C-Reactive Protein High Sensitivity 0.09 0.00-0.50 MG/DL Total Protein 7.1 6.4-8.2 GM/DL Albumin 4.9 H 3.2-4.5 GM/DL My Orders Orders - WHITLEY WYMAN Ct Head Wo (08/24/17 09:23) Cbc With Automated Diff (08/24/17 09:23) Comprehensive Metabolic Panel (08/24/17 09:23) Hs C Reactive Protein (08/24/17 09:23) Magnesium (08/24/17 09:23) Saline Lock/Iv-Start (08/24/17 09:23) Lactated Ringers (Lr 1000 Ml Iv Solution (08/24/17 09:23) Ondansetron Injection (Zofran Injectio (08/24/17 09:30) Fentanyl Injection (Sublimaze Injection (08/24/17 09:30) Prochlorperazine Injection (Compazine In (08/24/17 09:30) Diphenhydramine Tablet (Benadryl Tablet) (08/24/17 09:30) Medications Given in ED Current Medications Medications Dose Ordered Sig/Francisco Route Start Time Stop Time Status Last Admin Dose Admin Diphenhydramine HCl 25 mg ONCE ONCE PO 08/24/17 09:30 08/24/17 09:31 DC 08/24/17 10:00 25 MG Fentanyl Citrate 50 mcg ONCE ONCE IVP 08/24/17 09:30 08/24/17 09:31 DC 08/24/17 10:00 50 MCG Lactated Ringer's 1,000 ml @ 0 mls/hr Q0M ONCE IV 08/24/17 09:23 08/24/17 09:26 DC 08/24/17 10:00 1,000 MLS/HR Ondansetron HCl 4 mg ONCE ONCE IVP 08/24/17 09:30 08/24/17 09:31 DC 08/24/17 10:00 4 MG Prochlorperazine Edisylate 10 mg ONCE ONCE IV 08/24/17 09:30 08/24/17 09:31 DC 08/24/17 10:00 10 MG Vital Signs/I&O 08/24/17 08:43 Temp 97.0 Pulse 55 Resp 18 B/P (MAP) 169/85 (113) Pulse Ox 98 O2 Delivery Room Air Blood Pressure Mean: 113 Progress Progress Note #1: Time: 09:30 Progress Note History of craniotomy for benign cyst with new onset 2 day long headache. No neurologic deficits. We'll obtain a CT thinking of hydrocephalus. We'll try Compazine, opiates. She received full dose NSAIDs prior to arrival. We'll also use some Zofran for her nausea. Check some baseline labs looking for an increased white count, electrolyte derangements etc. Progress Note #2: Time: 11:28 Progress Note The patient reports that her pain is significantly improved and her nausea is gone. Check she fell asleep. Her labs and CT scan are reassuring and we will let her go home with some more Compazine. Diagnostic Imaging Diagonstic Imaging: CT (without contrast) Plain Films/CT/US/NM/MRI: head Comments NAME: ANTHONY KING [facility] REC#: [id number] PHYSICIAN: WHITLEY WYMAN MD CC: PIHLIPP BRIONES MD; WHITLEY WYMAN Page 1 of 1 RADIOLOGY REPORT VIA [place], [place] CC: PHILIPP BRIONES MD; WHITLEY WYMAN Page 1 of 1 RADIOLOGY REPORT NAME: ANTHONY KING [facility] REC#: [id number] PT STATUS: REG ER : 1965 PHYSICIAN: WHITLEY WYMAN MD ADMIT DATE: 08/24/17/ER Signed Date of Exam: 08/24/17 CT HEAD WO PROCEDURE: CT head without contrast. TECHNIQUE: Multiple contiguous axial images were obtained through the brain without the use of intravenous contrast. DATE: August 24, 2017. COMPARISON: 03/04/2017. INDICATION: 52-year-old female, headache, nausea, dizziness. FINDINGS: There is a persistent cavum septum pellucidum and cavum vergae. The ventricles and cerebral spinal fluid spaces are otherwise of normal size and configuration for the patient's age. There is no mass effect or midline shift. There is no acute intracranial hemorrhage. There is no abnormal extra-axial fluid collection. The visualized portions of the paranasal sinuses, mastoid air cells and middle ears are well aerated. IMPRESSION: 1. No identified acute intracranial abnormality. Dictated by: Dictated on workstation # [id number] Dict: 08/24/17 1050 Trans: 08/24/17 105 Interpreted by: PHILIPP BRIONES MD Electronically signed by: PHILIPP BRIONES MD 08/24/17 1057 Reviewed: Reviewed by Me Departure Impression Primary Impression: Headache Qualified Codes: G44.209 - Tension-type headache, unspecified, not intractable Disposition: 01 HOME, SELF-CARE Condition: Improved Departure-Patient Inst. Decision time for Depature: 11:29 Referrals: [facility] (PCP) Primary Care Physician OSBALDO CORRAL APRN (Family) Primary Care Physician Patient Instructions: Headache, Adult (DC) Add. Discharge Instructions: Try Naprosyn 2 capsules twice a day instead of ibuprofen 800 mg every 8 hours. Get some rest. Use the Compazine 1 tablet every 6 hours as needed for nausea. Follow up with your primary care provider as needed. All discharge instructions reviewed with patient and/or family. Voiced understanding. Scripts Prochlorperazine Maleate (Compazine) 10 Mg Tablet 10 MG PO Q6H PRN for NAUSEA/VOMITING-1ST LINE, #14 TAB 0 Refills Prov: WHITLEY WYMAN 08/24/17 Copy Copies To 1: CATIE HOLMAN DO WHITLEY WYMAN August 24, 2017 09:31
[2017-08-24 10:06] LABS: BASOPHILS # (AUTO) 0.1 10^3/uL (0.0-0.1); BASOPHILS % (AUTO) 1 % (0-10); EOSINOPHILS # (AUTO) 0.1 10^3/uL (0.0-0.3); EOSINOPHILS % (AUTO) 1 % (0-10); HEMATOCRIT 39 % (35-52); HEMOGLOBIN 13.7 G/DL (11.5-16.0); LYMPHOCYTES # (AUTO) 1.9 X 10^3 (1.0-4.0); LYMPHOCYTES % (AUTO) 19 % (12-44); MEAN CORPUSCULAR HEMOGLOBIN 33 PG (25-34); MEAN CORPUSCULAR HGB CONC 36 G/DL (32-36); MEAN CORPUSCULAR VOLUME 93 FL (80-99); MEAN PLATELET VOLUME 9.1 FL (7.4-10.4); MONOCYTES # (AUTO) 0.6 X 10^3 (0.0-1.0); MONOCYTES % (AUTO) 7 % (0-12); NEUTROPHILS % (AUTO) 73 % (42-75); PLATELET COUNT 299 10^3/uL (130-400); RED BLOOD COUNT 4.16 10^6/uL (4.35-5.85); RED CELL DISTRIBUTION WIDTH 12.8 % (10.0-14.5); WHITE BLOOD COUNT 9.6 10^3/uL (4.3-11.0)
[2017-08-24 10:27] LABS: ALBUMIN 4.9 GM/DL (3.2-4.5); BILIRUBIN,TOTAL 0.6 MG/DL (0.1-1.0); CALCIUM 9.9 MG/DL (8.5-10.1); CREATININE SERUM 1.07 MG/DL (0.60-1.30); MAGNESIUM 2.4 MG/DL (1.8-2.4); POTASSIUM 3.8 MMOL/L (3.6-5.0); TOTAL PROTEIN 7.1 GM/DL (6.4-8.2)
--- NOTE | 2017-08-24 10:53 | Diagnostic Imaging Report ---
PROCEDURE: CT head without contrast. TECHNIQUE: Multiple contiguous axial images were obtained through the brain without the use of intravenous contrast. DATE: August 24, 2017. COMPARISON: 03/04/2017. INDICATION: 52-year-old female, headache, nausea, dizziness. FINDINGS: There is a persistent cavum septum pellucidum and cavum vergae. The ventricles and cerebral spinal fluid spaces are otherwise of normal size and configuration for the patient's age. There is no mass effect or midline shift. There is no acute intracranial hemorrhage. There is no abnormal extra-axial fluid collection. The visualized portions of the paranasal sinuses, mastoid air cells and middle ears are well aerated. IMPRESSION: 1. No identified acute intracranial abnormality. Dictated by: Dictated on workstation # [id number]
[2017-08-24] MEDS ORDERED: PROC-1 PO (11:30)
[2017-08-24 11:37] VITALS: BP 150/71
== END 2017-08-24 11:36 | disposition home or self-care (01) ==
LOC: EDUNIT# 08:31 → ER 08:32
DX: R51 Headache (principal); E78.00 Pure hypercholesterolemia, unspecified; F41.9 Anxiety disorder, unspecified; F32.9 Major depressive disorder, single episode, unspecified; I10 Essential (primary) hypertension; F17.210 Nicotine dependence, cigarettes, uncomplicated; Z98.890 Other specified postprocedural states; Z79.82 Long term (current) use of aspirin; Z90.89 Acquired absence of other organs; Z90.710 Acquired absence of both cervix and uterus; Z88.2 Allergy status to sulfonamides; Z91.041 Radiographic dye allergy status; Z88.6 Allergy status to analgesic agent
CPT/HCPCS: 36415; 70450; 80053; 83735; 85025; 86141; 96361; 96374; 96375

== ENCOUNTER → 2017-10-14 | Outpatient (CLI) | payer MEDICARE, MEDICAID ==
[~2017-10-14] MED LIST changes: +GADOBUTROL 7.5 MMOL/7.5 ML (GADAVIST) VIAL IV ONE
[2017-10-14 11:36] LABS: CREATININE SERUM 1.16 MG/DL (0.60-1.30)
--- NOTE | 2017-10-14 13:27 | Diagnostic Imaging Report ---
PROCEDURE: MR imaging of the brain with and without contrast. TECHNIQUE: Multiplanar, multisequence MR imaging of the brain was performed with and without contrast. 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 Patient has increasing headaches and dizziness over the last six months. Correlation is made with a prior head CT from 08/24/2017. Ventricles and sulci are within normal limits. Occasional periventricular and subcortical white matter signal abnormalities noted, likely on the basis of chronic microvascular ischemia. There is a right frontal иван hole consistent with prior surgery. No diffusion restriction is seen to suggest acute ischemia. There are normal expected flow-voids within the carotid siphons are seen. No acute intra-axial or extra-axial hemorrhage is detected. Corpus callosum is unremarkable. The sella and parasellar structures are unremarkable. No abnormal enhancement following contrast administration is seen. IMPRESSION: Postsurgical changes and changes of chronic microvascular ischemia. No acute intracranial process is detected. Dictated by: Dictated on workstation # [id number]
== END ==
LOC: RAD 10:52
PROVIDERS: ATTEND Psychiatry & Neurology Neurology
DX: I67.82 Cerebral ischemia (principal); G43.009 Migraine without aura, not intractable, without status migrainosus
CPT/HCPCS: 36415; 70553; 82565; 84520

== ENCOUNTER 2017-11-05 12:09 | Emergency (ER) | payer MEDICARE, MEDICAID ==
[~2017-11-05] VITALS: Ht 172.7 cm; Wt 68.0 kg
[~2017-11-05 12:09] MED LIST changes: -GADOBUTROL 7.5 MMOL/7.5 ML (GADAVIST) VIAL IV ONE
--- OUTSIDE RECORDS SUMMARY | 2017-11-05 12:17 | XMS REPORT | Clinical Summary ---
Author Author [facility] Organization [facility] Address Unknown Phone Unavailable Care Team Providers Care Blind Hooker Name Role Phone Fidencio Fitzgerald MD PCP Source Comments Some departments are not documenting in the electronic medical record. If you do not see the information that you expected, contact Release of Information in the Health Information Management department at [phone] for further assistance in locating additional records.[facility] Allergies Active Allergy Reactions Severity [...] Active tablet ONCE DAILY AT BEDTIME 17 Dtnfkul-Xuejlfggc-Ktqy Take 1 tablet by mouth Active tab [...] CANCER SCREENING 2005 COLORECTAL CANCER 08/23/2015 SCREENING SHINGLES RECOMBINANT 08/23/2015 VACCINE (1 of 2) INFLUENZA VACCINE 12/28/2017 Results Not on filefrom Last 3 Months
--- OUTSIDE RECORDS SUMMARY | 2017-11-05 12:17 | XMS REPORT ---
Author Author CORRALOSBALDO New Organization [facility] Address [address] [place] [address] Care Team Providers Care Police Chief Deputy Name Role Phone OSBALDO CORRAL Unavailable PROBLEMS Type Condition ICD9-CM Code MSZ06-JD Code Onset Dates Condition Status SNOMED Code Problem Primary insomnia F51.01 Active 1366470 Problem Major depressive disorder, recurrent episode, moderate F33.1 Active 895959874 Problem Anxiety, generalized F41.1 Active 35914545 Problem Vitamin B12 deficiency anemia due to intrinsic factor deficiency D51.0 Active 00053236 Problem Migraine without status migrainosus, not intractable, unspecified migraine type G43.909 Active 72447502 Problem Essential hypertension I10 Active 33707867 Problem Chronic pain due to trauma G89.21 Active 321535215 Problem Adjustment disorder with mixed anxiety and depressed mood F43.23 Active 43653296 Problem Seasonal allergic rhinitis, unspecified allergic rhinitis trigger J30.2 Active 409960258 Problem Empty sella syndrome E23.6 Active 161543104 Problem 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 Active 20540989 Problem Pernicious anemia D51.0 Active 72300186 Problem Hypokalemia E87.6 Active 36058576 Problem Other hyperlipidemia E78.4 Active 18241921 ALLERGIES No Information ENCOUNTERS Encounter Location Date Diagnosis [facility] [id number] [place] [address] 34817- 8598 Nov, [facility] [address], [place] [address] Sep, Anxiety, generalized F41.1 and Chronic pain due to trauma G89.21 [facility] [address] [id number] [address] Sep, [facility] [id number] [place] [address] 03960- 8792 Sep, Otalgia of left ear H92.02 and Low pressure hydrocephalus G91.2 [place] [id number] [place] [address] 06291- 8496 Sep, [facility] [id number] [place] [address] 43787- 9971 Aug, Essential hypertension I10 ; 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 ; Empty sella syndrome E23.6 ; Pernicious anemia D51.0 ; Anxiety , generalized F41.1 ; Major depressive disorder, recurrent episode, moderate F33.1 ; Primary insomnia F51.01 ; Hypokalemia E87.6 and Chronic pain due to trauma G89.21 [place] [id number] [place] [address] 70771- 9311 Aug, [place] [id number] [place] [address] 23108- 5377 Aug, Anxiety, generalized F41.1 and Osteoarthritis of spine with radiculopathy, lumbosacral region M47.27 [place] [id number] [place] [address] 79436- 3973 Aug, [place] [id number] [place] [address] 49075- 7234 Aug, Primary insomnia F51.01 [place] [id number] [place] [address] 37464- 7280 July, Anxiety, generalized F41.1 and Osteoarthritis of spine with radiculopathy, lumbosacral region M47.27 [place] [id number] [place] [address] 85390- 9708 July, Essential hypertension I10 [place] [id number] [place] [address] 05096- 1594 July, Major depressive disorder, recurrent episode, moderate F33.1 [place] [id number] [place] [address] 25478- 7986 July, Primary insomnia F51.01 [place] [id number] [place] [address] 06440- 7546 Jun, Anxiety, generalized F41.1 and Osteoarthritis of spine with radiculopathy, lumbosacral region M47.27 [facility] [id number] [place] [address] 98625 -7384 Jun, Acute frontal sinusitis, recurrence not specified J01.10 ; Sinus pressure J34.89 ; Post-nasal drip R09.82 and Sore throat J02.9 [place] [address] 90009- 2475 Jun, Primary insomnia F51.01 [place] [address] 84623- 5632 May, Anxiety, generalized F41.1 and Osteoarthritis of spine with radiculopathy, lumbosacral region M47.27 [place] [id number] [place] [address] 69635- 0354 May, Essential hypertension I10 ; 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 ; Empty sella syndrome E23.6 ; Pernicious anemia D51.0 ; Major depressive disorder, recurrent episode, moderate F33.1 ; Primary insomnia F51.01 ; Other hyperlipidemia E78.4 and Anxiety, generalized F41.1 [place] [id number] [place] [address] 50342- 4544 May, Vitamin B12 deficiency anemia due to intrinsic factor deficiency D51.0 and Pernicious anemia D51.0 [facility] [id number] [place] [address] 52301 -2325 May, Migraine without status migrainosus, not intractable, unspecified migraine type G43.909 [place] [id number] [place] [address] 62350- 3729 May, [place] [address] 62041- 9759 May, [place] [id number] [place] [address] 27517- 3996 09 May, 2017 Osteoarthritis of spine with radiculopathy, lumbosacral region M47.27 and Primary insomnia F51.01 [place] [id number] [place] [address] 28067- 8262 02 May, 2017 Osteoarthritis of spine with radiculopathy, lumbosacral region M47.27 and Anxiety, generalized F41.1 [place] [id number] [place] [address] 29120- 3237 May, [place] [address] 18270- 9070 Apr, [place] [id number] [place] [address] 04390- 2318 Apr, [place] [address] 67964- 0557 Apr, Anxiety, generalized F41.1 ; Major depressive disorder, recurrent episode, moderate F33.1 ; Moderate episode of recurrent major depressive disorder F33.1 and Adjustment disorder with mixed anxiety and depressed mood F43.23 [place] [id number] [place] [address] 46556- 8150 Apr, Major depressive disorder, recurrent episode, moderate F33.1 ; Anxiety, generalized F41.1 ; Essential hypertension I10 ; Primary insomnia F51.01 and 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 [place] [id number] [place] [address] 34513- 9909 09 Apr, 2017 Other chest pain R07.89 ; Sinus bradycardia R00.1 ; Essential hypertension I10 and Other hyperlipidemia E78.4 [place] [id number] [place] [address] 59748- 1394 08 Apr, 2017 Primary insomnia F51.01 [place] [id number] [place] [address] 36923- 1066 06 Apr, 2017 [place] [id number] [place] [address] 70635- 1352 Apr, Anxiety, generalized F41.1 [place] [address] 80322- 0015 Apr, Osteoarthritis of spine with radiculopathy, lumbosacral region M47.27 [place] [address] 02836- 8361 Mar, Intractable migraine without aura and without status migrainosus G43.019 and Dyshidrotic hand dermatitis L30.1 [facility] [place] [address] 29350 -3807 Mar, Skin infection L08.9 [place] [address] 69829- 6549 Mar, [facility] [place] [address] 76982 -4197 Mar, Skin lesion L98.9 [place] [address] 64166- 6968 Mar, Primary insomnia F51.01 and Anxiety, generalized F41.1 [place] [id number] [place] [address] 66899- 3306 Mar, Osteoarthritis of spine with radiculopathy, lumbosacral region M47.27 [place] [id number] [place] [address] 72549- 6445 Feb, [place] [address] 01608- 4388 Feb, [place] [address] 70432- 7154 Feb, Hypokalemia E87.6 [place] [address] 21840- 4001 Feb, Intractable migraine without aura and without status migrainosus G43.019 and Other chest pain R07.89 [place] [id number] [place] [address] 82891- 7147 Feb, [place] [address] 592133- 8197 Feb, Osteoarthritis of spine with radiculopathy, lumbosacral region M47.27 [place] [address] 43393- 3695 Feb, Hypokalemia E87.6 [place] [id number] [place] [address] 40093- 1304 Feb, [place] [address] 785117- 5134 Feb, Primary insomnia F51.01 and Anxiety, generalized F41.1 [facility] [place] [address] 09248 -6953 Feb, Acute suppurative otitis media of both ears without spontaneous rupture of tympanic membranes, recurrence not specified H66.003 [place] [address] 84309- 6115 Feb, [place] [id number] [place] [address] 30006- 5182 Jan, Osteoarthritis of spine with radiculopathy, lumbosacral region M47.27 [place] [id number] [place] [address] 47037- 7562 Jan, Primary insomnia F51.01 and Anxiety, generalized F41.1 [place] [address] 34621- 5934 Jan, Chronic pain due to trauma G89.21 ; Left otitis media with effusion H65.92 and Otalgia of left ear H92.02 [facility] [id number] [place] [address] 52496 -7056 Jan, Bilateral otitis media with effusion H65.93 [place] [address] 33033- 2131 Dec, [place] [address] 44100- 0734 Dec, Primary insomnia F51.01 and Anxiety, generalized F41.1 [place] [address] 97862- 1338 Nov, [place] [address] 16836- 2450 Nov, [place] [address] 91573- 9918 Nov, Anxiety, generalized F41.1 [place] [address] 28288- 9764 Nov, Pernicious anemia D51.0 [place] [address] 48914- 2197 Nov, Primary insomnia F51.01 [place] [address] 57567- 3474 Nov, Encounter for well woman exam with routine gynecological exam Z01.419 ; Screening breast examination Z12.31 and Otalgia of left ear H92.02 [place] [address] 02585- 2458 Oct, [facility] [address] 34868 -6254 Oct, Insect bite (nonvenomous) of right upper arm, initial encounter S40.861A [place] [address] 32409- 4912 Oct, Pernicious anemia D51.0 [place] [address] 63068- 3280 Oct, Anxiety, generalized F41.1 and Pernicious anemia D51.0 [place] [id number] [place] [address] 42361- 2545 Oct, Encounter to establish care with new doctor Z76.89 ; Moderate episode of recurrent major depressive disorder F33.1 ; Empty sella syndrome E23.6 ; Seasonal allergic rhinitis, unspecified allergic rhinitis trigger J30.2 ; Essential hypertension I10 and Osteoarthritis of spine with radiculopathy, lumbosacral region M47.27 [place] [address] 63818- 9014 Aug, [place] [address] 15500- 6996 Aug, [place] [address] 25136- 6171 Aug, Anxiety, generalized F41.[address] 81145- 3857 08 Aug, 2016 [place] [address] 33018- 8314 Aug, Primary insomnia F51.01 ; Essential hypertension I10 ; Empty sella syndrome E23.6 and Chronic pain due to trauma G89.21 [place] [id number] [place] [address] 11357- 9567 July, Primary insomnia F51.01 [facility] [id number] [place] [address] 66256 -8568 July, Seasonal allergic rhinitis, unspecified allergic rhinitis trigger J30.2 and Acute suppurative otitis media of right ear without spontaneous rupture of tympanic membrane, recurrence not specified H66.001 [facility] [address] 00757 -6058 July, Acute suppurative otitis media of left ear without spontaneous rupture of tympanic membrane, recurrence not specified H66.002 [place] [address] 46299- 0492 July, [facility] [id number] [place] [address] 86531- 7336 July, Anxiety, generalized F41.1 [facility] [id number] [place] [address] 51503- 5111 Jun, [facility] [id number] [place] [address] 97126- 4145 Jun, Primary insomnia F51.01 [facility] [address] 46521- 2156 Jun, Empty sella syndrome E23.6 ; Primary insomnia F51.01 and Hypokalemia E87.6 [facility] [id number] [place] [address] 28692- 4542 Jun, [facility] [address] 25918- 7244 Jun, [facility] [address] 05368- 6232 Jun, Empty sella syndrome E23.6 [facility] [id number] [place] [address] 55152- 7415 Jun, Anxiety, generalized F41.1 [facility] [id number] [place] [address] 41066- 3125 Jun, [facility] [id number] [place] [address] 78052- 6401 Jun, Empty sella syndrome E23.6 [facility] [id number] [place] [address] 09289- 9487 May, [facility] [address] 58286- 9440 May, [facility] [id number] [place] [address] 79354- 0335 May, Empty sella syndrome E23.6 [facility] [address] [place] [address]- 3290 May, [facility] [id number] [place] [address] 84283- 6061 May, [facility] [id number] [place] [address] 95355- 4713 May, Primary insomnia F51.01 [facility] [id number] [place] [address] 26318- 3226 May, [facility] [id number] [place] [address] 36459- 2786 May, Nausea R11.0 ; Other headache syndrome G44.89 and Malignant hypertension I10 [place] [id number] [place] [address] 00143- 2030 May, Anxiety, generalized F41.1 [place] [id number] [place] [address] 09179- 0988 Apr, Major depressive disorder, recurrent episode, moderate F33.1 [place] [id number] [place] [address] 43428- 2409 28 Apr, 2016 Moderate episode of recurrent major depressive disorder F33.1 [place] [id number] [place] [address] 45011- 1113 27 Apr, 2016 Other chronic postprocedural pain G89.28 [facility] [id number] [place] [address] 71427- 2143 15 Apr, 2016 Major depressive disorder, recurrent episode, moderate F33.1 [facility] [address] [place] [address] 33939- 9908 07 Apr, 2016 Anxiety, generalized F41.1 [facility] [id number] [place] [address] 78416- 1394 03 Apr, 2016 [facility] [address] [place] [address] 56246- 2286 Mar, Other chronic postprocedural pain G89.28 ; Status post craniotomy Z98.890 ; Encounter for drug screening Z02.83 and Hematuria R31.9 [place] [address] 47247- 2978 Mar, Major depressive disorder, recurrent episode, moderate F33.1 [place] [address] 22014- 4741 Mar, [place] [address] 61643- 4102 Mar, Anxiety, generalized F41.[address] 62489- 2375 Mar, Anxiety, generalized F41.1 and Pernicious anemia D51.[address] 58590- 1832 Mar, 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 and Status post craniotomy Z98.890 [place] [address] 04962- 1116 Mar, Primary insomnia F51.[address] 38272- 8439 Feb, [place] [address] 54526- 0005 Feb, Encounter to establish care Z76.89 ; [...] Frequency Start Date End Date Duration Status Ambien 10 mg Orally Once a day 1 tablet at bedtime as needed 24h Mar, 30 days Active RESULTS No Results [...] Medical History Left ventricular hypertrophy by electrocardiogram Medical History glaucoma Surgical History hysterectomy partial Cyst on ovaries 2000 Surgical History oophrectomy both are gone 2008 Surgical History cholesectomy 12/2015 Surgical History cranioplasty screws were loose and plate started to shift 2015 Surgical History crainiotomy due to colloid cyst in 3rd ventricle 04/2014 Surgical History kidney stone removal 1998 Surgical History tonsilectomy at age 6yrs Surgical History eye surgery glaucoma 09/14/17 Hospitalization History surgery only Hospitalization History [facility] 02/2017
--- OUTSIDE RECORDS SUMMARY | 2017-11-05 12:17 | XMS REPORT ---
Author Author CORRALOSBALDO New Organization [facility] Address [address] [place] [address] Care Team Providers Care File Conversion Operator Name Role Phone OSBALDO CORRAL Unavailable PROBLEMS Type Condition ICD9-CM Code LBX65-EV Code Onset Dates Condition Status SNOMED Code Problem Primary insomnia F51.01 Active 2361578 Problem Major depressive disorder, recurrent episode, moderate F33.1 Active 397940242 Problem Anxiety, generalized F41.1 Active 15771647 Problem Vitamin B12 deficiency anemia due to intrinsic factor deficiency D51.0 Active 36382557 Problem Migraine without status migrainosus, not intractable, unspecified migraine type G43.909 Active 44598609 Problem Essential hypertension I10 Active 63315453 Problem Chronic pain due to trauma G89.21 Active 684451551 Problem Adjustment disorder with mixed anxiety and depressed mood F43.23 Active 89810984 Problem Seasonal allergic rhinitis, unspecified allergic rhinitis trigger J30.2 Active 984257176 Problem Empty sella syndrome E23.6 Active 930051702 Problem 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 Active 88108438 Problem Pernicious anemia D51.0 Active 43102894 Problem Hypokalemia E87.6 Active 73191951 Problem Other hyperlipidemia E78.4 Active 41934241 ALLERGIES No Information ENCOUNTERS Encounter Location Date Diagnosis [facility] [id number] [place] [address] 27040- 7121 Oct, [facility] [address] [address] Sep, Anxiety, generalized F41.1 and Chronic pain due to trauma G89.21 [facility] [id number] [address] Sep, [facility] [id number] [place] [address] 54271- 9061 Sep, Otalgia of left ear H92.02 and Low pressure hydrocephalus G91.2 [place] [id number] [place] [address] 53744- 2604 Sep, [facility] [id number] [place] [address] 49877- 0949 Aug, Essential hypertension I10 ; 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 ; Empty sella syndrome E23.6 ; Pernicious anemia D51.0 ; Anxiety , generalized F41.1 ; Major depressive disorder, recurrent episode, moderate F33.1 ; Primary insomnia F51.01 ; Hypokalemia E87.6 and Chronic pain due to trauma G89.21 [place] [id number] [place] [address] 77513- 3841 Aug, [place] [id number] [place] [address] 06900- 1803 Aug, Anxiety, generalized F41.1 and Osteoarthritis of spine with radiculopathy, lumbosacral region M47.27 [place] [id number] [place] [address] 53083- 6964 Aug, [place] [id number] [place] [address] 81931- 4660 Aug, Primary insomnia F51.01 [place] [id number] [place] [address] 61265- 3948 July, Anxiety, generalized F41.1 and Osteoarthritis of spine with radiculopathy, lumbosacral region M47.27 [place] [id number] [place] [address] 74576- 3687 July, Essential hypertension I10 [place] [id number] [place] [address] 97556- 2593 July, Major depressive disorder, recurrent episode, moderate F33.1 [place] [id number] [place] [address] 96318- 2694 July, Primary insomnia F51.01 [place] [id number] [place] [address] 04697- 9188 Jun, Anxiety, generalized F41.1 and Osteoarthritis of spine with radiculopathy, lumbosacral region M47.27 [facility]ALK IN [facility] [id number] [place] [address] 33950 -7394 Jun, Acute frontal sinusitis, recurrence not specified J01.10 ; Sinus pressure J34.89 ; Post-nasal drip R09.82 and Sore throat J02.9 [place] [address] 45012- 5772 Jun, Primary insomnia F51.01 [place] [address] 73349- 6026 May, Anxiety, generalized F41.1 and Osteoarthritis of spine with radiculopathy, lumbosacral region M47.27 [place] [id number] [place] [address] 92898- 5852 May, Essential hypertension I10 ; 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 ; Empty sella syndrome E23.6 ; Pernicious anemia D51.0 ; Major depressive disorder, recurrent episode, moderate F33.1 ; Primary insomnia F51.01 ; Other hyperlipidemia E78.4 and Anxiety, generalized F41.1 [place] [id number] [place] [address] 88463- 8491 May, Vitamin B12 deficiency anemia due to intrinsic factor deficiency D51.0 and Pernicious anemia D51.0 [facility] WALK IN [facility] [id number] [place] [address] 93977 -6886 May, Migraine without status migrainosus, not intractable, unspecified migraine type G43.909 [place] [id number] [place] [address] 80885- 6961 May, [place] [address] 30988- 1898 May, [place] [id number] [place] [address] 84558- 2880 09 May, 2017 Osteoarthritis of spine with radiculopathy, lumbosacral region M47.27 and Primary insomnia F51.01 [place] [id number] [place] [address] 46310- 7172 02 May, 2017 Osteoarthritis of spine with radiculopathy, lumbosacral region M47.27 and Anxiety, generalized F41.1 [place] [id number] [place] [address] 27052- 3101 May, [place] [address] 93869- 6640 Apr, [place] [id number] [place] [address] 23603- 0984 Apr, [place] [address] 02415- 0188 Apr, Anxiety, generalized F41.1 ; Major depressive disorder, recurrent episode, moderate F33.1 ; Moderate episode of recurrent major depressive disorder F33.1 and Adjustment disorder with mixed anxiety and depressed mood F43.23 [place] [id number] [place] [address] 53954- 1606 Apr, Major depressive disorder, recurrent episode, moderate F33.1 ; Anxiety, generalized F41.1 ; Essential hypertension I10 ; Primary insomnia F51.01 and 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 [place] [id number] [place] [address] 36337- 0975 09 Apr, 2017 Other chest pain R07.89 ; Sinus bradycardia R00.1 ; Essential hypertension I10 and Other hyperlipidemia E78.4 [place] [id number] [place] [address] 00369- 7695 08 Apr, 2017 Primary insomnia F51.01 [place] [id number] [place] [address] 41406- 8865 06 Apr, 2017 [place] [id number] [place] [address] 64684- 9093 Apr, Anxiety, generalized F41.1 [place] [address] 87522- 5432 Apr, Osteoarthritis of spine with radiculopathy, lumbosacral region M47.27 [place] [address] 92571- 6830 Mar, Intractable migraine without aura and without status migrainosus G43.019 and Dyshidrotic hand dermatitis L30.1 [facility] WALK IN [place] [address] 28214 -5567 Mar, Skin infection L08.9 [place] [address] 13453- 9942 Mar, [facility] WALK IN [place] [address] 91189 -9304 Mar, Skin lesion L98.9 [place] [address] 89880- 7424 Mar, Primary insomnia F51.01 and Anxiety, generalized F41.1 [place] [id number] [place] [address] 56013- 4054 Mar, Osteoarthritis of spine with radiculopathy, lumbosacral region M47.27 [place] [id number] [place] [address] 00905- 8510 Feb, [place] [address] 40961- 3744 Feb, [place] [address] 94467- 7311 Feb, Hypokalemia E87.6 [place] [address] 29765- 1204 Feb, Intractable migraine without aura and without status migrainosus G43.019 and Other chest pain R07.89 [place] [id number] [place] [address] 45258- 6011 Feb, [place] [address] 579539- 6003 Feb, Osteoarthritis of spine with radiculopathy, lumbosacral region M47.27 [place] [address] 78514- 1955 Feb, Hypokalemia E87.6 [place] [id number] [place] [address] 47939- 8936 Feb, [place] [address] [place] [address]4872- 3469 Feb, Primary insomnia F51.01 and Anxiety, generalized F41.1 [facility] WALK IN [place] [address] 28044 -6836 Feb, Acute suppurative otitis media of both ears without spontaneous rupture of tympanic membranes, recurrence not specified H66.003 [place] [address] 70388- 6492 Feb, [place] [id number] [place] [address] 77883- 6581 Jan, Osteoarthritis of spine with radiculopathy, lumbosacral region M47.27 [place] [id number] [place] [address] 77491- 5346 Jan, Primary insomnia F51.01 and Anxiety, generalized F41.1 [place] [address] 95041- 3160 Jan, Chronic pain due to trauma G89.21 ; Left otitis media with effusion H65.92 and Otalgia of left ear H92.02 [facility] [id number] [place] [address] 12088 -4388 Jan, Bilateral otitis media with effusion H65.93 [place] [address] 55036- 2934 Dec, [place] [address] 93648- 7591 Dec, Primary insomnia F51.01 and Anxiety, generalized F41.1 [place] [address] 64866- 1717 Nov, [place] [address] 32590- 9175 Nov, [place] [address] 88374- 0107 Nov, Anxiety, generalized F41.1 [place] [address] 53100- 3517 Nov, Pernicious anemia D51.0 [place] [address] 90068- 0102 Nov, Primary insomnia F51.01 [place] [address] 71052- 6817 Nov, Encounter for well woman exam with routine gynecological exam Z01.419 ; Screening breast examination Z12.31 and Otalgia of left ear H92.02 [place] [address] 15224- 0281 Oct, [facility] [address] 37161 -6441 Oct, Insect bite (nonvenomous) of right upper arm, initial encounter S40.861A [place] [address] 93387- 3145 Oct, Pernicious anemia D51.0 [place] [address] 38751- 5560 Oct, Anxiety, generalized F41.1 and Pernicious anemia D51.0 [place] [id number] [place] [address] 24266- 7455 Oct, Encounter to establish care with new doctor Z76.89 ; Moderate episode of recurrent major depressive disorder F33.1 ; Empty sella syndrome E23.6 ; Seasonal allergic rhinitis, unspecified allergic rhinitis trigger J30.2 ; Essential hypertension I10 and Osteoarthritis of spine with radiculopathy, lumbosacral region M47.27 [place] [address] 25714- 3956 Aug, [place] [address] 27989- 0045 Aug, [place] [address] 03396- 7421 Aug, Anxiety, generalized F41.[address] 07524- 0612 08 Aug, 2016 [place] [address] 58940- 2465 Aug, Primary insomnia F51.01 ; Essential hypertension I10 ; Empty sella syndrome E23.6 and Chronic pain due to trauma G89.21 [place] [id number] [place] [address] 74320- 1102 July, Primary insomnia F51.01 [facility] WALK IN [facility] [id number] [place] [address] 80444 -8495 July, Seasonal allergic rhinitis, unspecified allergic rhinitis trigger J30.2 and Acute suppurative otitis media of right ear without spontaneous rupture of tympanic membrane, recurrence not specified H66.001 [facility] WALK IN [facility] [address] 25860 -3902 July, Acute suppurative otitis media of left ear without spontaneous rupture of tympanic membrane, recurrence not specified H66.002 [place] [address] 33437- 8920 July, [facility] [id number] [place] [address] 92794- 9657 July, Anxiety, generalized F41.1 [facility] [id number] [place] [address] 58053- 9277 Jun, [facility] [id number] [place] [address] 54233- 7717 Jun, Primary insomnia F51.01 [facility] [address] 16932- 7822 Jun, Empty sella syndrome E23.6 ; Primary insomnia F51.01 and Hypokalemia E87.6 [facility] [id number] [place] [address] 77421- 6822 Jun, [facility] [address] 14322- 1672 Jun, [facility] [address] 77588- 2274 Jun, Empty sella syndrome E23.6 [facility] [id number] [place] [address] 45087- 0403 Jun, Anxiety, generalized F41.1 [facility] [id number] [place] [address] 14581- 6518 Jun, [facility] [id number] [place] [address] 03569- 5078 Jun, Empty sella syndrome E23.6 [facility] [id number] [place] [address] 95193- 4634 May, [facility] [address] 28226- 9699 May, [facility] [id number] [place] [address] 19007- 7739 May, Empty sella syndrome E23.6 [facility] [address] [place] [address]- 7433 May, [facility] [id number] [place] [address] 28265- 1181 May, [facility] [id number] [place] [address] 51403- 5497 May, Primary insomnia F51.01 [facility] [id number] [place] [address] 63702- 4521 May, [facility] [id number] [place] [address] 07895- 0759 May, Nausea R11.0 ; Other headache syndrome G44.89 and Malignant hypertension I10 [place] [id number] [place] [address] 16228- 6421 May, Anxiety, generalized F41.1 [place] [id number] [place] [address] 13033- 8190 Apr, Major depressive disorder, recurrent episode, moderate F33.1 [place] [id number] [place] [address] 51756- 5399 28 Apr, 2016 Moderate episode of recurrent major depressive disorder F33.1 [place] [id number] [place] [address] 76668- 6035 27 Apr, 2016 Other chronic postprocedural pain G89.28 [facility] [id number] [place] [address] 47479- 4575 15 Apr, 2016 Major depressive disorder, recurrent episode, moderate F33.1 [facility] [address] [place] [address] 34789- 4153 07 Apr, 2016 Anxiety, generalized F41.1 [facility] [id number] [place] [address] 71143- 2159 03 Apr, 2016 [facility] [address] [place] [address] 04181- 5129 Mar, Other chronic postprocedural pain G89.28 ; Status post craniotomy Z98.890 ; Encounter for drug screening Z02.83 and Hematuria R31.9 [place] [address] 85202- 9231 Mar, Major depressive disorder, recurrent episode, moderate F33.1 [place] [address] 94083- 6746 Mar, [place] [address] 77725- 2713 Mar, Anxiety, generalized F41.1 [place] [address] 77278- 9969 Mar, Anxiety, generalized F41.1 and Pernicious anemia D51.0 [place] [address] 43792- 8440 Mar, 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
--- OUTSIDE RECORDS SUMMARY | 2017-11-05 12:18 | XMS REPORT ---
Author Author CORRALOSBALDO New Organization [facility] Address [address] [place] [address] Care Team Providers Care Business Unit Manager Name Role Phone OSBALDO CORRAL Unavailable PROBLEMS Type Condition ICD9-CM Code ZSX91-DX Code Onset Dates Condition Status SNOMED Code Problem Primary insomnia F51.01 Active 2221041 Problem Major depressive disorder, recurrent episode, moderate F33.1 Active 474961516 Problem Anxiety, generalized F41.1 Active 23746404 Problem Vitamin B12 deficiency anemia due to intrinsic factor deficiency D51.0 Active 63743199 Problem Migraine without status migrainosus, not intractable, unspecified migraine type G43.909 Active 54112330 Problem Essential hypertension I10 Active 20913588 Problem Chronic pain due to trauma G89.21 Active 759564878 Problem Adjustment disorder with mixed anxiety and depressed mood F43.23 Active 31792558 Problem Seasonal allergic rhinitis, unspecified allergic rhinitis trigger J30.2 Active 556116099 Problem Empty sella syndrome E23.6 Active 871298674 Problem 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 Active 30575538 Problem Pernicious anemia D51.0 Active 33130563 Problem Hypokalemia E87.6 Active 81160188 Problem Other hyperlipidemia E78.4 Active 84279043 ALLERGIES No Information ENCOUNTERS Encounter Location Date Diagnosis [place] [id number] [place] [address] 99394- 9194 Sep, Anxiety, generalized F41.1 and Chronic pain due to trauma G89.21 [facility] [id number] [place] [address] 10622- 0648 Sep, [place] [id number] [place] [address] 29296- 9942 Sep, Otalgia of left ear H92.02 and Low pressure hydrocephalus G91.2 [place] [address] [place] [id number] [place] [address] 28075- 9481 Sep, [place] [address] 43874- 5544 Aug, Essential hypertension I10 ; 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 ; Empty sella syndrome E23.6 ; Pernicious anemia D51.0 ; Anxiety , generalized F41.1 ; Major depressive disorder, recurrent episode, moderate F33.1 ; Primary insomnia F51.01 ; Hypokalemia E87.6 and Chronic pain due to trauma G89.21 [place] [address] [place] [id number] [place] [address] 06292- 2580 Aug, [place] [address] 81808- 6014 Aug, Anxiety, generalized F41.1 and Osteoarthritis of spine with radiculopathy, lumbosacral region M47.27 [place] [address] 93712- 5228 Aug, [place] [address] [place] [id number] [place] [address] 88730- 9956 Aug, Primary insomnia F51.01 [place] [address] [place] [id number] [place] [address] 30863- 2319 July, Anxiety, generalized F41.1 and Osteoarthritis of spine with radiculopathy, lumbosacral region M47.27 [place] [address] [place] [id number] [place] [address] 91688- 2266 July, Essential hypertension I10 [place] [address] [place] [id number] [place] [address] 80469- 0029 July, Major depressive disorder, recurrent episode, moderate F33.1 [place] [address] [place] [id number] [place] [address] 43926- 6313 July, Primary insomnia F51.01 [place] [address] [place] [id number] [place] [address] 48927- 5024 Jun, Anxiety, generalized F41.1 and Osteoarthritis of spine with radiculopathy, lumbosacral region M47.[address] [facility] [address] 27[address]9247 Jun, Acute frontal sinusitis, recurrence not specified J01.10 ; Sinus pressure J34.89 ; Post-nasal drip R09.82 and Sore throat J02.9 [place] [address] 29560- 6900 Jun, Primary insomnia F51.01 [place] [address] 75634- 6893 May, Anxiety, generalized F41.1 and Osteoarthritis of spine with radiculopathy, lumbosacral region M47.27 [place] [address] 03370- 6482 May, Essential hypertension I10 ; 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 ; Empty sella syndrome E23.6 ; Pernicious anemia D51.0 ; Major depressive disorder, recurrent episode, moderate F33.1 ; Primary insomnia F51.01 ; Other hyperlipidemia E78.4 and Anxiety, generalized F41.1 [place] [address] 24549- 1106 May, Vitamin B12 deficiency anemia due to intrinsic factor deficiency D51.0 and Pernicious anemia D51.[address] [facility] [address] [place] [id number] [place] [address] 14455 -9374 May, Migraine without status migrainosus, not intractable, unspecified migraine type G43.909 [place] [address] 19306- 8174 May, [place] [address] 75403- 5442 May, [place] [address] 61366- 7656 May, Osteoarthritis of spine with radiculopathy, lumbosacral region M47.27 and Primary insomnia F51.01 [place] [address] 80982- 7824 May, Osteoarthritis of spine with radiculopathy, lumbosacral region M47.27 and Anxiety, generalized F41.1 [place] [address] 78552- 8966 May, [place] [address] 80973- 3395 Apr, [place] [address] 70300- 2320 Apr, [place] [address] 38725- 6617 Apr, Anxiety, generalized F41.1 ; Major depressive disorder, recurrent episode, moderate F33.1 ; Moderate episode of recurrent major depressive disorder F33.1 and Adjustment disorder with mixed anxiety and depressed mood F43.23 [place] [address] [place] [id number] [place] [address] 39034- 6740 Apr, Major depressive disorder, recurrent episode, moderate F33.1 ; Anxiety, generalized F41.1 ; Essential hypertension I10 ; Primary insomnia F51.01 and 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 [place] [address] 15957- 5813 09 Apr, 2017 Other chest pain R07.89 ; Sinus bradycardia R00.1 ; Essential hypertension I10 and Other hyperlipidemia E78.4 [place] [address] [place] [id number] [place] [address] 89400- 9832 08 Apr, 2017 Primary insomnia F51.01 [place] [address] 93306- 6494 Apr, [place] [address] 52438- 6652 Apr, Anxiety, generalized F41.1 [place] [address] 09030- 7310 Apr, Osteoarthritis of spine with radiculopathy, lumbosacral region M47.27 [place] [address] 31386- 1997 Mar, Intractable migraine without aura and without status migrainosus G43.019 and Dyshidrotic hand dermatitis L30.1 [facility] [address] 90708 -7596 Mar, Skin infection L08.9 [place] [address] 73449- 9422 Mar, [facility] [address] 77404 -6330 Mar, Skin lesion L98.9 [place] [address] 86502- 0297 Mar, Primary insomnia F51.01 and Anxiety, generalized F41.1 [place] [address] 80674- 6904 Mar, Osteoarthritis of spine with radiculopathy, lumbosacral region M47.27 [place] [address] 01314- 5881 Feb, [place] [address] 68301- 2662 Feb, [place] [address] 48957- 0167 Feb, Hypokalemia E87.6 [place] [address] 15184- 4682 Feb, Intractable migraine without aura and without status migrainosus G43.019 and Other chest pain R07.89 [place] [address] [place] [address]- 3952 Feb, [place] [address] 91180- 2184 14 Feb, 2017 Osteoarthritis of spine with radiculopathy, lumbosacral region M47.27 [place] [address] [place] [id number] [place] [address] 81873- 5775 13 Feb, 2017 Hypokalemia E87.6 [place] [address] 51901- 0097 08 Feb, 2017 [place] [address] 10528- 8875 Feb, Primary insomnia F51.01 and Anxiety, generalized F41.1 [facility] [place] [address] [place] [id number] [place] [address] 73421 -8367 Feb, Acute suppurative otitis media of both ears without spontaneous rupture of tympanic membranes, recurrence not specified H66.003 [place] [address] [place] [id number] [place] [address] 94047- 7870 Feb, [place] [address] 93284- 0252 Jan, Osteoarthritis of spine with radiculopathy, lumbosacral region M47.27 [place] [address] [place] [id number] [place] [address] 60639- 8072 Jan, Primary insomnia F51.01 and Anxiety, generalized F41.1 [place] [address] [place] [id number] [place] [address] 56593- 9265 02 Jan, 2017 Chronic pain due to trauma G89.21 ; Left otitis media with effusion H65.92 and Otalgia of left ear H92.02 [facility] [address] [place] [id number] [place] [address] 59609 -3024 Jan, Bilateral otitis media with effusion H65.93 [place] [address] 74722- 3784 Dec, [facility] [address] [place] [address] 15585- 3768 Dec, Primary insomnia F51.01 and Anxiety, generalized F41.1 [facility] [address] [place] [id number] [place] [address] 91152- 9466 Nov, [place] [address] 73877- 6816 Nov, [facility] [address] 23838- 1756 Nov, Anxiety, generalized F41.1 [place] [address] 16224- 7979 Nov, Pernicious anemia D51.0 [place] [address] [place] [id number] [place] [address] 39119- 7518 Nov, Primary insomnia F51.01 [place] [address] 01057- 4920 Nov, Encounter for well woman exam with routine gynecological exam Z01.419 ; Screening breast examination Z12.31 and Otalgia of left ear H92.02 [place] [address] [place] [id number] [place] [address] 94417- 9979 Oct, [facility] [address] [place] [id number] [place] [address] 29107 -9602 Oct, Insect bite (nonvenomous) of right upper arm, initial encounter S40.861A [place] [address] [place] [id number] [place] [address] 22292- 6233 Oct, Pernicious anemia D51.0 [place] [address] 00844- 4271 Oct, Anxiety, generalized F41.1 and Pernicious anemia D51.0 [place] [address] 24276- 0603 Oct, Encounter to establish care with new doctor Z76.89 ; Moderate episode of recurrent major depressive disorder F33.1 ; Empty sella syndrome E23.6 ; Seasonal allergic rhinitis, unspecified allergic rhinitis trigger J30.2 ; Essential hypertension I10 and Osteoarthritis of spine with radiculopathy, lumbosacral region M47.27 [facility] [address] [place] [id number] [place] [address] 09497- 6549 Aug, [facility] [address] 01299- 6142 Aug, [place] [address] [place] [id number] [place] [address] 51294- 3550 Aug, Anxiety, generalized F41.1 [place] [address] 03119- 6168 Aug, [place] [address] 54648- 2652 Aug, Primary insomnia F51.01 ; Essential hypertension I10 ; Empty sella syndrome E23.6 and Chronic pain due to trauma G89.21 [place] [address] 23856- 1320 July, Primary insomnia F51.01 [facility] [address] [place] [id number] [place] [address] 53150 -9082 July, Seasonal allergic rhinitis, unspecified allergic rhinitis trigger J30.2 and Acute suppurative otitis media of right ear without spontaneous rupture of tympanic membrane, recurrence not specified H66.001 [facility] [address] [place] [id number] [place] [address] 17545 -8009 July, Acute suppurative otitis media of left ear without spontaneous rupture of tympanic membrane, recurrence not specified H66.002 [facility] [address] [place] [id number] [place] [address] 11703- 1399 July, [facility] [address] 40014- 4160 July, Anxiety, generalized F41.1 [facility] [address] [place] [id number] [place] [address] 09779- 1541 Jun, [facility] [address] [place] [id number] [place] [address] 63404- 5433 Jun, Primary insomnia F51.01 [facility] [address] [place] [id number] [place] [address] 98690- 5288 Jun, Empty sella syndrome E23.6 ; Primary insomnia F51.01 and Hypokalemia E87.6 [facility] [address] [place] [id number] [place] [address] 04771- 2640 Jun, [facility] [address] [place] [id number] [place] [address] 96939- 6336 Jun, [facility] [address] [place] [id number] [place] [address] 55364- 4476 Jun, Empty sella syndrome E23.6 [facility] [address] [place] [id number] [place] [address] 88730- 0398 Jun, Anxiety, generalized F41.1 [facility] [address] [place] [id number] [place] [address] 91106- 3276 Jun, [facility] [address] [place] [id number] [place] [address] 76431- 2772 Jun, Empty sella syndrome E23.6 [facility] [address] [place] [id number] [place] [address] 00578- 3138 May, [facility] [address] [place] [id number] [place] [address] 51776- 9769 May, [facility] [address] [place] [id number] [place] [address] 29048- 9337 May, Empty sella syndrome E23.6 [facility] [address] [place] [id number] [place] [address] 85355- 3533 May, [facility] [address] [place] [id number] [place] [address] 95409- 4188 24 May, 2016 [facility] [address] [place] [id number] [place] [address] 95065- 4625 May, Primary insomnia F51.01 [facility] [address] [place] [id number] [place] [address] 82796- 0058 22 May, 2016 [facility] [address] 37299- 5240 May, Nausea R11.0 ; Other headache syndrome G44.89 and Malignant hypertension I10 [facility] [address] 45092- 9563 07 May, 2016 Anxiety, generalized F41.1 [place] [address] [place] [id number] [place] [address] 86709- 9788 28 Apr, 2016 Major depressive disorder, recurrent episode, moderate F33.1 [place] [address] 82916- 8172 28 Apr, 2016 Moderate episode of recurrent major depressive disorder F33.1 [facility] [address] [place] [id number] [place] [address] 04414- 0145 27 Apr, 2016 Other chronic postprocedural pain G89.28 [place] [address] [place] [id number] [place] [address] 23816- 9125 15 Apr, 2016 Major depressive disorder, recurrent episode, moderate F33.1 [place] [address] [place] [id number] [place] [address] 95045- 0087 07 Apr, 2016 Anxiety, generalized F41.1 [facility] [address] [place] [id number] [place] [address] 13596- 5206 03 Apr, 2016 [facility] [address] [place] [id number] [place] [address] 52941- 1764 Mar, Other chronic postprocedural pain G89.28 ; Status post craniotomy Z98.890 ; Encounter for drug screening Z02.83 and Hematuria R31.9 [place] [address] [place] [address] 09961- 6891 Mar, Major depressive disorder, recurrent episode, moderate F33.1 [place] [id number] [place] [address] 07871- 4072 Mar, [place] [address] [place] [id number] [place] [address] 04450- 4693 Mar, Anxiety, generalized F41.[address] 07125- 0308 10 Mar, 2016 Anxiety, generalized F41.1 and Pernicious anemia D51.0 [place] [id number] [place] [address] 66170- 8399 Mar, 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 02/2017
--- OUTSIDE RECORDS SUMMARY | 2017-11-05 12:18 | XMS REPORT ---
Author Author DAVID CROWE [facility] Address [address] [place] [address] Care Team Providers Care Advertising Editor Name Role Phone MICHAEL BERKOWITZJAIRO DAVID Unavailable PROBLEMS Type Condition ICD9-CM Code UMY67-SR Code Onset Dates Condition Status SNOMED Code Problem Primary insomnia F51.01 Active 5889032 Problem Major depressive disorder, recurrent episode, moderate F33.1 Active 028743511 Problem Anxiety, generalized F41.1 Active 04765349 Problem Vitamin B12 deficiency anemia due to intrinsic factor deficiency D51.0 Active 28474018 Problem Migraine without status migrainosus, not intractable, unspecified migraine type G43.909 Active 93036512 Problem Essential hypertension I10 Active 20180295 Problem Chronic pain due to trauma G89.21 Active 442290372 Problem Adjustment disorder with mixed anxiety and depressed mood F43.23 Active 24187119 Problem Seasonal allergic rhinitis, unspecified allergic rhinitis trigger J30.2 Active 684004263 Problem Empty sella syndrome E23.6 Active 856222436 Problem 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 Active 78010828 Problem Pernicious anemia D51.0 Active 12258717 Problem Hypokalemia E87.6 Active 50974765 Problem Other hyperlipidemia E78.4 Active 89632712 ALLERGIES Substance Reaction Event Type Date Status Iodine anaphylaxis Drug Allergy Jun, Active Dilaudid Hallucinations Drug Allergy Jun, Active Depakote CP Drug Allergy Jun, Active Bactrim DS swelling of joint Drug Allergy Jun, Active ENCOUNTERS Encounter Location Date Diagnosis [facility] [address] [facility] [id number] [address] Sep, Anxiety, generalized F41.1 and Chronic pain due to trauma G89.21 [facility] [address] [id number] [address] Sep, [place] [id number] [place] [address] 69324- 7958 Sep, Otalgia of left ear H92.02 and Low pressure hydrocephalus G91.2 [place] [id number] [place] [address] 08687- 7844 Sep, [place] [id number] [place] [address] 00058- 2776 Aug, Essential hypertension I10 ; 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 ; Empty sella syndrome E23.6 ; Pernicious anemia D51.0 ; Anxiety , generalized F41.1 ; Major depressive disorder, recurrent episode, moderate F33.1 ; Primary insomnia F51.01 ; Hypokalemia E87.6 and Chronic pain due to trauma G89.21 [place] [id number] [place] [address] 63147- 8491 Aug, [address] [address]- [address] Aug, Anxiety, generalized F41.1 and Osteoarthritis of spine with radiculopathy, lumbosacral region M47.27 [place] [address] [address]- [address]96 Aug, [place] [id number] [place] [address] 13305- 0426 Aug, Primary insomnia F51.01 [place] [address] [address] 3031 July, Anxiety, generalized F41.1 and Osteoarthritis of spine with radiculopathy, lumbosacral region M47.27 [place] [id number] [place] [address] 65372- 7293 July, Essential hypertension I10 [place] [id number] [place] [address] 72308- 1334 July, Major depressive disorder, recurrent episode, moderate F33.1 [place] [address] [id number] [place] [address] 93506- 9203 July, Primary insomnia F51.01 [place] [id number] [place] [address] Jun, Anxiety, generalized F41.1 and Osteoarthritis of spine with radiculopathy, lumbosacral region M47.27 [facility] [address] [address] Jun, Acute frontal sinusitis, recurrence not specified J01.10 ; Sinus pressure J34.89 ; Post-nasal drip R09.82 and Sore throat J02.9 [place] [address] [place] [address] [id number]- [address] Jun, Primary insomnia F51.01 [place] [id number] [place] [address] 41606- 8951 May, Anxiety, generalized F41.1 and Osteoarthritis of spine with radiculopathy, lumbosacral region M47.27 [place] [id number] [place] [address] 58091- 2942 May, Essential hypertension I10 ; 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 ; Empty sella syndrome E23.6 ; Pernicious anemia D51.0 ; Major depressive disorder, recurrent episode, moderate F33.1 ; Primary insomnia F51.01 ; Other hyperlipidemia E78.4 and Anxiety, generalized F41.1 [place] [id number] [place] [address] 76608- 6357 May, Vitamin B12 deficiency anemia due to intrinsic factor deficiency D51.0 and Pernicious anemia D51.0 [facility] [address] [address] May, Migraine without status migrainosus, not intractable, unspecified migraine type G43.909 [place] [id number] [place] [address] 71005- 2262 May, [place] [id number] [place] [address] 07515- 4402 14 May, 2017 [place] [id number] [place] [address] 10194- 5330 May, Osteoarthritis of spine with radiculopathy, lumbosacral region M47.27 and Primary insomnia F51.01 [place] [id number] [place] [address] 86105- 3108 May, Osteoarthritis of spine with radiculopathy, lumbosacral region M47.27 and Anxiety, generalized F41.1 [place] [id number] [place] [address] 26342- 7816 May, [place] [id number] [place] [address] 27088- 5433 28 Apr, 2017 [place] [id number] [place] [address] 20877- 9452 19 Apr, 2017 [place] [id number] [place] [address] 40307- 9834 13 Apr, 2017 Anxiety, generalized F41.1 ; Major depressive disorder, recurrent episode, moderate F33.1 ; Moderate episode of recurrent major depressive disorder F33.1 and Adjustment disorder with mixed anxiety and depressed mood F43.23 [place] [id number] [place] [address] 79986- 4325 Apr, Major depressive disorder, recurrent episode, moderate F33.1 ; Anxiety, generalized F41.1 ; Essential hypertension I10 ; Primary insomnia F51.01 and 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 [place] [id number] [place] [address] 36664- 8547 09 Apr, 2017 Other chest pain R07.89 ; Sinus bradycardia R00.1 ; Essential hypertension I10 and Other hyperlipidemia E78.4 [place] [id number] [place] [address] 06670- 0874 08 Apr, 2017 Primary insomnia F51.01 [place] [address] [place] [address] [address] Apr, [facility] [address] 16345- 7499 Apr, Anxiety, generalized F41.1 [place] [address] 11705- 2145 Apr, Osteoarthritis of spine with radiculopathy, lumbosacral region M47.27 [place] [address] 34819- 6372 Mar, Intractable migraine without aura and without status migrainosus G43.019 and Dyshidrotic hand dermatitis L30.1 [facility] [place] [address] [address]5431 Mar, Skin infection L08.9 [place] [address] 31748- 9865 Mar, [facility] [address] [address] Mar, Skin lesion L98.9 [place] [address] 52254- 6615 Mar, Primary insomnia F51.01 and Anxiety, generalized F41.1 [place] [address] 71684- 9935 Mar, Osteoarthritis of spine with radiculopathy, lumbosacral region M47.27 [place] [address] 57335- 6199 Feb, [place] [address] 03554- 5946 Feb, [place] [address] 42770- 9003 Feb, Hypokalemia E87.6 [place] [address] 54900- 1134 Feb, Intractable migraine without aura and without status migrainosus G43.019 and Other chest pain R07.89 [place] [id number] [place] [address] 59097- 2178 Feb, [place] [address] 48920- 1098 Feb, Osteoarthritis of spine with radiculopathy, lumbosacral region M47.27 [place] [address] 57163- 5005 Feb, Hypokalemia E87.6 [place] [address] 86939- 8964 Feb, [place] [address] 04294- 4565 Feb, Primary insomnia F51.01 and Anxiety, generalized F41.1 [facility] [place] [id number] [place] [address] 85846 -7789 Feb, Acute suppurative otitis media of both ears without spontaneous rupture of tympanic membranes, recurrence not specified H66.003 [place] [id number] [place] [address] 22953- 8809 Feb, [place] [id number] [place] [address] 36366- 5686 Jan, Osteoarthritis of spine with radiculopathy, lumbosacral region M47.27 [place] [id number] [place] [address] 83885- 5371 Jan, Primary insomnia F51.01 and Anxiety, generalized F41.1 [place] [address] 92917- 3724 Jan, Chronic pain due to trauma G89.21 ; Left otitis media with effusion H65.92 and Otalgia of left ear H92.02 [facility] [address] [place] [address] Jan, Bilateral otitis media with effusion H65.93 [place] [address] 66099- 4611 Dec, [facility] [address] 34575- 3378 Dec, Primary insomnia F51.01 and Anxiety, generalized F41.1 [place] [address] 93408- 4133 Nov, [place] [address] 43489- 9627 15 Nov, 2016 [place] [address] 67587- 3479 Nov, Anxiety, generalized F41.1 [place] [address] 92637- 7439 Nov, Pernicious anemia D51.0 [place] [address] 68917- 9868 Nov, Primary insomnia F51.01 [place] [address] 64119- 7891 Nov, Encounter for well woman exam with routine gynecological exam Z01.419 ; Screening breast examination Z12.31 and Otalgia of left ear H92.02 [place] [id number] [place] [address] 90876- 6974 Oct, [facility] [address] 17954 -1620 14 Oct, 2016 Insect bite (nonvenomous) of right upper arm, initial encounter S40.861A [place] [id number] [place] [address] 68655- 3957 Oct, Pernicious anemia D51.0 [place] [address] 52726- 7101 Oct, Anxiety, generalized F41.1 and Pernicious anemia D51.0 [place] [id number] [place] [address] 14445- 0461 Oct, Encounter to establish care with new doctor Z76.89 ; Moderate episode of recurrent major depressive disorder F33.1 ; Empty sella syndrome E23.6 ; Seasonal allergic rhinitis, unspecified allergic rhinitis trigger J30.2 ; Essential hypertension I10 and Osteoarthritis of spine with radiculopathy, lumbosacral region M47.27 [place] [address] 89508- 2773 Aug, [place] [address] 18685- 7586 Aug, [place] [address] 00848- 9922 Aug, Anxiety, generalized F41.1 [place] [address] 51458- 0867 Aug, [place] [address] 51081- 2118 07 Aug, 2016 Primary insomnia F51.01 ; Essential hypertension I10 ; Empty sella syndrome E23.6 and Chronic pain due to trauma G89.21 [place] [id number] [place] [address] 84601- 7229 July, Primary insomnia F51.01 [facility] [id number] [place] [address] 05757 -2486 July, Seasonal allergic rhinitis, unspecified allergic rhinitis trigger J30.2 and Acute suppurative otitis media of right ear without spontaneous rupture of tympanic membrane, recurrence not specified H66.001 [facility] [id number] [place] [address] 52355 -2831 July, Acute suppurative otitis media of left ear without spontaneous rupture of tympanic membrane, recurrence not specified H66.002 [place] [address] [id number] [address] July, [facility] [id number] [place] [address] 88033- 2433 July, Anxiety, generalized F41.1 [facility] [id number] [place] [address] 02832- 3769 Jun, [facility] [id number] [place] [address] 55681- 8086 Jun, Primary insomnia F51.01 [facility] [id number] [place] [address] 16999- 8589 Jun, Empty sella syndrome E23.6 ; Primary insomnia F51.01 and Hypokalemia E87.6 [facility] [id number] [place] [address] 22539- 8382 Jun, [facility] [id number] [place] [address] 20537- 2277 Jun, [facility] [id number] [place] [address] 97614- 7294 Jun, Empty sella syndrome E23.6 [facility] [id number] [place] [address] 95082- 1283 Jun, Anxiety, generalized F41.1 [facility] [id number] [place] [address] 61437- 0505 Jun, [facility] [id number] [place] [address] 23392- 7567 Jun, Empty sella syndrome E23.6 [facility] [id number] [place] [address] 97693- 6064 May, [facility] [id number] [place] [address] 98692- 1140 May, [facility] [id number] [place] [address] 73318- 8872 May, Empty sella syndrome E23.6 [facility] [id number] [place] [address] 20814- 3165 May, [facility] [address] 87291- 9715 May, [facility] [address] 97523- 0428 May, Primary insomnia F51.01 [facility] [address] 89753- 9651 May, [facility] [address] 25500- 8871 May, Nausea R11.0 ; Other headache syndrome G44.89 and Malignant hypertension I10 [place] [address] 54050- 6903 May, Anxiety, generalized F41.1 [facility] [address] 32807- 3465 28 Apr, 2016 Major depressive disorder, recurrent episode, moderate F33.1 [place] [id number] [place] [address] 65744- 3911 28 Apr, 2016 Moderate episode of recurrent major depressive disorder F33.1 [place] [id number] [place] [address] 10321- 4849 27 Apr, 2016 Other chronic postprocedural pain G89.28 [facility] [id number] [place] [address] 94032- 8029 15 Apr, 2016 Major depressive disorder, recurrent episode, moderate F33.1 [facility] [address] 17294- 0320 07 Apr, 2016 Anxiety, generalized F41.1 [facility] [id number] [place] [address] 77496- 7936 03 Apr, 2016 [facility] [address] 33268- 5236 Mar, Other chronic postprocedural pain G89.28 ; Status post craniotomy Z98.890 ; Encounter for drug screening Z02.83 and Hematuria R31.9 [place] [id number] [place] [address] 48986- 9332 Mar, Major depressive disorder, recurrent episode, moderate F33.1 [place] [address] 07541- 7885 Mar, [place] [address] 49139- 4086 Mar, Anxiety, generalized F41.1 [place] [address] 13700- 0795 Mar, Anxiety, generalized F41.1 and Pernicious anemia D51.0 [place] [address] 14487- 9271 Mar, 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 and Status post craniotomy Z98.890 [place] [id number] [place] [address] 01612- 2321 Mar, Primary insomnia F51.01 [place] [address] 13627- 9561 Feb, [place] [address] 42138- 1648 Feb, Encounter to establish care Z76.89 ; Status post craniotomy Z98.890 ; 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 ; Hypokalemia E87.6 ; Essential hypertension I10 ; Other hyperlipidemia E78.4 ; Pernicious anemia D51.0 ; Other depression F32.89 and Chronic nausea R11.0 IMMUNIZATIONS No Known Immunizations SOCIAL HISTORY Never Assessed REASON FOR VISIT fever/congestion Pt c/o fever, sinus pain/pressure and cough for over a week AMELIE Lin PLAN OF CARE Activity Details Follow Up prn Reason: VITAL SIGNS Height 67 in 2017-07-03 Weight 140.8 lbs 2017-07-03 Temperature 98.3 degrees Fahrenheit 2017-07-03 Heart Rate 64 bpm 2017-07-03 Respiratory Rate 18 2017-07-03 BMI 22.05 kg/m2 2017-07-03 Blood pressure systolic 108 mmHg 2017-07-03 Blood pressure diastolic 60 mmHg 2017-07-03 MEDICATIONS Medication Instructions Dosage Frequency Start Date End Date Duration Status Xanax 0.5 MG Orally Three times a day 1 tablet 8h 28 days Active Chlorthalidone 25 MG Orally Once a day 1/2 tablet 24h Feb, Active Potassium Chloride Jaycee ER 10 MEQ TAKE ONE TABLET BY MOUTH ONCE DAILY WITH FOOD 30 Active Oxycodone-Acetaminophen 7.5-325 MG Orally 3 times a day 1 tablet as needed 8h May, 28 days Active Lisinopril 40 MG Orally Once a day 1 tablet 24h Active Ambien 10 mg Orally Once a day 1 tablet at bedtime as needed 24h Mar, 30 days Active Fluticasone Propionate 50 MCG/ACT Nasally Once a day 1 spray in each nostril 24h Not-Taking Medrol 4 MG Orally Once a day take each days dose at one time dailyas directed 24h Jun, Active Zithromax 250 MG Orally Once a day 2 tablets on the first day, then 1 tablet daily for 4 days 24h Jun, Jun, 5 day(s) Active Ibuprofen 200 mg Orally Once a day 1 tablet with food or milk as needed 24h Active Amlodipine Besylate 5 MG Orally Once a day 1 tablet 24h Feb, Active Folic Acid 400 MCG Orally Once a day 1 tablet 24h Active Flonase 50 MCG/ACT Nasally Once a day 1 spray in each nostril 24h Jun, 30 day(s) Active Ipratropium [place] 0.06 % Nasally Three times a day 2 sprays in each nostril as needed 8h Not-Taking BD Syringe/Needle 23GX1 For use with injectable B12 Active Pravastatin Sodium 80 MG TAKE ONE TABLET BY MOUTH ONCE DAILY Active Tylenol Active BuSpar 10 mg Orally 3 times a day 1 tablet 8h Apr, 14 days Not -Taking Temazepam 15 mg Orally Once a day 1 capsule at bedtime as needed 24h Apr 30 days Not-Taking Vitamin D 400 UNIT Orally Once a day 2 capsules 24h Active Tizanidine HCl 4 MG TAKE ONE TABLET BY MOUTH THREE TIMES DAILY NEEDED 30 Active Duloxetine HCl 30 MG Orally Once a day in the AM 1 capsule Active Metoprolol Tartrate 25 MG TAKE 1/2 TABLET BY MOUTH TWICE DAILY WITH FOOD Aug, Active PredniSONE 10 mg 4 tabs x 4 days, 3 tabs x 4 days, 2 tabs x 4 days, 1 x 4 days May, Active RESULTS Name Result Date Reference Range STREP A (IN HOUSE) STREP A Control Lot # Exp date PROCEDURES Procedure Date Ordered Result Body Site STREP A ASSAY W/OPTIC July 03, 2017 INSTRUCTIONS MEDICATIONS ADMINISTERED No Known Medications MEDICAL (GENERAL) HISTORY Type Description Date Medical History HTN Medical History Hypokalemia since cranioplasty in may 2015 Medical History Insomnia longstanding Ambien works at [employer] Medical History Hypercholesterolemia Medical History prenicious anemia [...]
--- OUTSIDE RECORDS SUMMARY | 2017-11-05 12:18 | XMS REPORT ---
Author Author CORRALOSBALDO New Organization [facility] [place] Address [address] [place] [address] Care Team Providers Care Cured Meats Supervisor Name Role Phone OSBALDO CORRAL Unavailable PROBLEMS Type Condition ICD9-CM Code QCS48-JK Code Onset Dates Condition Status SNOMED Code Problem Primary insomnia F51.01 Active 2063453 Problem Major depressive disorder, recurrent episode, moderate F33.1 Active 794507270 Problem Anxiety, generalized F41.1 Active 40318776 Problem Vitamin B12 deficiency anemia due to intrinsic factor deficiency D51.0 Active 88680559 Problem Migraine without status migrainosus, not intractable, unspecified migraine type G43.909 Active 59016481 Problem Essential hypertension I10 Active 51192147 Problem Chronic pain due to trauma G89.21 Active 357888754 Problem Adjustment disorder with mixed anxiety and depressed mood F43.23 Active 40666393 Problem Seasonal allergic rhinitis, unspecified allergic rhinitis trigger J30.2 Active 244995615 Problem Empty sella syndrome E23.6 Active 758606788 Problem 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 Active 54844256 Problem Pernicious anemia D51.0 Active 78431532 Problem Hypokalemia E87.6 Active 92288376 Problem Other hyperlipidemia E78.4 Active 13023623 ALLERGIES No Information ENCOUNTERS Encounter Location Date Diagnosis [place] [id number] [place] [address] 85784- 9880 Sep, Anxiety, generalized F41.1 and Chronic pain due to trauma G89.21 [facility] [place] [id number] [place] [address] 39234- 1072 Sep, [place] [address] [place] [address] 34616- 7514 Sep, Otalgia of left ear H92.02 and Low pressure hydrocephalus G91.2 [place] [address] [place] [id number] [place] [address] 51245- 8533 Sep, [place] [address] 06536- 3305 Aug, Essential hypertension I10 ; 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 ; Empty sella syndrome E23.6 ; Pernicious anemia D51.0 ; Anxiety , generalized F41.1 ; Major depressive disorder, recurrent episode, moderate F33.1 ; Primary insomnia F51.01 ; Hypokalemia E87.6 and Chronic pain due to trauma G89.21 [place] [address] [place] [id number] [place] [address] 35158- 7603 Aug, [place] [address] 53396- 1791 Aug, Anxiety, generalized F41.1 and Osteoarthritis of spine with radiculopathy, lumbosacral region M47.27 [place] [address] 83242- 4368 Aug, [place] [address] [place] [id number] [place] [address] 93034- 5861 Aug, Primary insomnia F51.01 [place] [address] [place] [id number] [place] [address] 56994- 6414 July, Anxiety, generalized F41.1 and Osteoarthritis of spine with radiculopathy, lumbosacral region M47.27 [place] [address] [place] [id number] [place] [address] 41880- 4036 July, Essential hypertension I10 [place] [address] [place] [id number] [place] [address] 17529- 8999 July, Major depressive disorder, recurrent episode, moderate F33.1 [place] [address] [place] [id number] [place] [address] 02112- 5179 July, Primary insomnia F51.01 [place] [address] [place] [id number] [place] [address] 61022- 2424 Jun, Anxiety, generalized F41.1 and Osteoarthritis of spine with radiculopathy, lumbosacral region M47.27 [facility] [address] 67951 -1443 Jun, Acute frontal sinusitis, recurrence not specified J01.10 ; Sinus pressure J34.89 ; Post-nasal drip R09.82 and Sore throat J02.9 [place] [address] 94149- 6574 Jun, Primary insomnia F51.01 [place] [address] 39056- 0791 May, Anxiety, generalized F41.1 and Osteoarthritis of spine with radiculopathy, lumbosacral region M47.27 [place] [address] 47815- 9200 May, Essential hypertension I10 ; 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 ; Empty sella syndrome E23.6 ; Pernicious anemia D51.0 ; Major depressive disorder, recurrent episode, moderate F33.1 ; Primary insomnia F51.01 ; Other hyperlipidemia E78.4 and Anxiety, generalized F41.1 [place] [address] 67239- 8402 May, Vitamin B12 deficiency anemia due to intrinsic factor deficiency D51.0 and Pernicious anemia D51.0 [facility] [address] [place] [id number] [place] [address] 79578 -2084 May, Migraine without status migrainosus, not intractable, unspecified migraine type G43.909 [place] [address] 15228- 0204 May, [place] [address] 73288- 1545 May, [place] [address] 97649- 6970 May, Osteoarthritis of spine with radiculopathy, lumbosacral region M47.27 and Primary insomnia F51.01 [place] [address] 05442- 2050 May, Osteoarthritis of spine with radiculopathy, lumbosacral region M47.27 and Anxiety, generalized F41.1 [place] [address] 38111- 8969 May, [place] [address] 14876- 4982 Apr, [place] [address] 76204- 1812 Apr, [place] [address] 29654- 4671 Apr, Anxiety, generalized F41.1 ; Major depressive disorder, recurrent episode, moderate F33.1 ; Moderate episode of recurrent major depressive disorder F33.1 and Adjustment disorder with mixed anxiety and depressed mood F43.23 [place] [address] [place] [id number] [place] [address] 68785- 0364 Apr, Major depressive disorder, recurrent episode, moderate F33.1 ; Anxiety, generalized F41.1 ; Essential hypertension I10 ; Primary insomnia F51.01 and 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 [place] [address] 90179- 3227 09 Apr, 2017 Other chest pain R07.89 ; Sinus bradycardia R00.1 ; Essential hypertension I10 and Other hyperlipidemia E78.4 [place] [address] [place] [id number] [place] [address] 62094- 1592 08 Apr, 2017 Primary insomnia F51.01 [place] [address] 94794- 7863 Apr, [place] [address] 97665- 8095 Apr, Anxiety, generalized F41.1 [place] [address] 72673- 4129 Apr, Osteoarthritis of spine with radiculopathy, lumbosacral region M47.27 [place] [address] 08304- 5486 Mar, Intractable migraine without aura and without status migrainosus G43.019 and Dyshidrotic hand dermatitis L30.1 [facility] [address] 60712 -9282 Mar, Skin infection L08.9 [place] [address] 48504- 5835 Mar, [facility] [address] 35211 -6982 Mar, Skin lesion L98.9 [place] [address] 69802- 6748 Mar, Primary insomnia F51.01 and Anxiety, generalized F41.1 [place] [address] 11511- 9181 Mar, Osteoarthritis of spine with radiculopathy, lumbosacral region M47.27 [place] [address] 28836- 5907 Feb, [place] [address] 30956- 7826 Feb, [place] [address] 25452- 9758 Feb, Hypokalemia E87.6 [place] [address] 25994- 5379 Feb, Intractable migraine without aura and without status migrainosus G43.019 and Other chest pain R07.89 [place] [address] [place] [address]- 6283 Feb, [place] [address] 17791- 0408 14 Feb, 2017 Osteoarthritis of spine with radiculopathy, lumbosacral region M47.27 [place] [address] [place] [id number] [place] [address] 29807- 5945 13 Feb, 2017 Hypokalemia E87.6 [place] [address] 45236- 2146 08 Feb, 2017 [place] [address] 08749- 8641 Feb, Primary insomnia F51.01 and Anxiety, generalized F41.1 [facility] [place] [address] [place] [id number] [place] [address] 42110 -8221 Feb, Acute suppurative otitis media of both ears without spontaneous rupture of tympanic membranes, recurrence not specified H66.003 [place] [address] [place] [id number] [place] [address] 82676- 6038 Feb, [place] [address] 93275- 8469 Jan, Osteoarthritis of spine with radiculopathy, lumbosacral region M47.27 [place] [address] [place] [id number] [place] [address] 32306- 6466 Jan, Primary insomnia F51.01 and Anxiety, generalized F41.1 [place] [address] [place] [id number] [place] [address] 84793- 1784 02 Jan, 2017 Chronic pain due to trauma G89.21 ; Left otitis media with effusion H65.92 and Otalgia of left ear H92.02 [facility] [address] [place] [id number] [place] [address] 02854 -6967 Jan, Bilateral otitis media with effusion H65.93 [place] [address] 94817- 0650 Dec, [facility] [place] [address] [place] [address] 92060- 9926 Dec, Primary insomnia F51.01 and Anxiety, generalized F41.1 [facility] [place] [address] [place] [id number] [place] [address] 15767- 7813 Nov, [place] [address] 24943- 1886 Nov, [facility] [place] [address] 07601- 4445 Nov, Anxiety, generalized F41.1 [place] [address] 26511- 0662 Nov, Pernicious anemia D51.0 [place] [address] [place] [id number] [place] [address] 18198- 3756 Nov, Primary insomnia F51.01 [place] [address] 55507- 1769 Nov, Encounter for well woman exam with routine gynecological exam Z01.419 ; Screening breast examination Z12.31 and Otalgia of left ear H92.02 [place] [address] [place] [id number] [place] [address] 27587- 5602 Oct, [facility] [address] [place] [id number] [place] [address] 00081 -3614 Oct, Insect bite (nonvenomous) of right upper arm, initial encounter S40.861A [place] [address] [place] [id number] [place] [address] 53917- 1355 Oct, Pernicious anemia D51.0 [place] [address] 82717- 1185 Oct, Anxiety, generalized F41.1 and Pernicious anemia D51.0 [place] [address] 66110- 9131 Oct, Encounter to establish care with new doctor Z76.89 ; Moderate episode of recurrent major depressive disorder F33.1 ; Empty sella syndrome E23.6 ; Seasonal allergic rhinitis, unspecified allergic rhinitis trigger J30.2 ; Essential hypertension I10 and Osteoarthritis of spine with radiculopathy, lumbosacral region M47.27 [facility] [place] [address] [place] [id number] [place] [address] 00337- 9085 Aug, [facility] [place] [address] 34594- 3701 Aug, [place] [address] [place] [id number] [place] [address] 85129- 2740 Aug, Anxiety, generalized F41.1 [place] [address] 32032- 2329 Aug, [place] [address] 84647- 3332 Aug, Primary insomnia F51.01 ; Essential hypertension I10 ; Empty sella syndrome E23.6 and Chronic pain due to trauma G89.21 [place] [address] 24170- 1109 July, Primary insomnia F51.01 [facility] [address] [place] [id number] [place] [address] 73120 -2740 July, Seasonal allergic rhinitis, unspecified allergic rhinitis trigger J30.2 and Acute suppurative otitis media of right ear without spontaneous rupture of tympanic membrane, recurrence not specified H66.001 [facility] [address] [place] [id number] [place] [address] 93848 -4351 July, Acute suppurative otitis media of left ear without spontaneous rupture of tympanic membrane, recurrence not specified H66.002 [facility] [place] [address] [place] [id number] [place] [address] 36760- 0798 July, [facility] [place] [address] 74258- 7308 July, Anxiety, generalized F41.1 [facility] [place] [address] [place] [id number] [place] [address] 25518- 6806 Jun, [facility] [place] [address] [place] [id number] [place] [address] 00042- 7841 Jun, Primary insomnia F51.01 [facility] [place] [address] [place] [id number] [place] [address] 75404- 0619 Jun, Empty sella syndrome E23.6 ; Primary insomnia F51.01 and Hypokalemia E87.6 [facility] [place] [address] [place] [id number] [place] [address] 14888- 6373 Jun, [facility] [place] [address] [place] [id number] [place] [address] 91778- 7898 Jun, [facility] [place] [address] [place] [id number] [place] [address] 26317- 4986 Jun, Empty sella syndrome E23.6 [facility] [place] [address] [place] [id number] [place] [address] 78554- 9379 Jun, Anxiety, generalized F41.1 [facility] [place] [address] [place] [id number] [place] [address] 91155- 1789 Jun, [facility] [place] [address] [place] [id number] [place] [address] 53466- 4966 Jun, Empty sella syndrome E23.6 [facility] [place] [address] [place] [id number] [place] [address] 65665- 4140 May, [facility] [place] [address] [place] [id number] [place] [address] 87017- 5921 May, [facility] [place] [address] [place] [id number] [place] [address] 84898- 0263 May, Empty sella syndrome E23.6 [facility] [place] [address] [place] [id number] [place] [address] 88422- 7569 May, [facility] [place] [address] [place] [id number] [place] [address] 65524- 0074 24 May, 2016 [facility] [place] [address] [place] [id number] [place] [address] 86772- 8035 May, Primary insomnia F51.01 [facility] [place] [address] [place] [id number] [place] [address] 38764- 1627 22 May, 2016 [facility] [place] [address] 34547- 5594 May, Nausea R11.0 ; Other headache syndrome G44.89 and Malignant hypertension I10 [facility] [place] [address] 69966- 8221 07 May, 2016 Anxiety, generalized F41.1 [place] [address] [place] [id number] [place] [address] 43842- 0415 28 Apr, 2016 Major depressive disorder, recurrent episode, moderate F33.1 [place] [address] 13225- 4277 28 Apr, 2016 Moderate episode of recurrent major depressive disorder F33.1 [facility] [place] [address] [place] [id number] [place] [address] 93308- 4343 27 Apr, 2016 Other chronic postprocedural pain G89.28 [place] [address] [place] [id number] [place] [address] 99221- 2733 15 Apr, 2016 Major depressive disorder, recurrent episode, moderate F33.1 [place] [address] [place] [id number] [place] [address] 57257- 5008 07 Apr, 2016 Anxiety, generalized F41.1 [facility] [place] [address] [place] [id number] [place] [address] 77752- 2529 03 Apr, 2016 [facility] [place] [address] [place] [id number] [place] [address] 75663- 0014 Mar, Other chronic postprocedural pain G89.28 ; Status post craniotomy Z98.890 ; Encounter for drug screening Z02.83 and Hematuria R31.9 [place] [address] [place] [address] 95563- 3746 Mar, Major depressive disorder, recurrent episode, moderate F33.1 [place] [id number] [place] [address] 10226- 8563 Mar, [place] [id number] [place] [address] 57180- 6478 Mar, Anxiety, generalized F41.[address] 40490- 5727 Mar, Anxiety, generalized F41.1 and Pernicious anemia D51.0 [place] [id number] [place] [address] 15030- 1074 Mar, 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 and Status post craniotomy Z98.[address] 49198- 7112 Mar, Primary insomnia F51.01 [place] [id number] [place] [address] 77447- 0279 Feb, [place] [id number] [place] [address] 58312- 7063 Feb, Encounter to establish care Z76.89 ; [...] in may 2015 Medical History Insomnia longstanding Tanaien works at [employer] Medical History Hypercholesterolemia Medical History prenicious anemia [...]
--- OUTSIDE RECORDS SUMMARY | 2017-11-05 12:19 | XMS REPORT ---
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 Name Role Phone JOCELYN ANYA Unavailable PROBLEMS Type Condition ICD9-CM Code NIA93-[place] Code Onset Dates Condition Status SNOMED Code Problem Primary insomnia F51.01 Active 8788428 Problem Major depressive disorder, recurrent episode, moderate F33.1 Active 459067486 Problem Anxiety, generalized F41.1 Active 80838719 Problem Vitamin B12 deficiency anemia due to intrinsic factor deficiency D51.0 Active 65342911 Problem Migraine without status migrainosus, not intractable, unspecified migraine type G43.909 Active 95892262 Problem Essential hypertension I10 Active 20175913 Problem Chronic pain due to trauma G89.21 Active 030879964 Problem Adjustment disorder with mixed anxiety and depressed mood F43.23 Active 36536166 Problem Seasonal allergic rhinitis, unspecified allergic rhinitis trigger J30.2 Active 899589684 Problem Empty sella syndrome E23.6 Active 422533444 Problem 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 Active 51901129 Problem Pernicious anemia D51.0 Active 67842152 Problem Hypokalemia E87.6 Active 12448671 Problem Other hyperlipidemia E78.4 Active 68850462 ALLERGIES Substance Reaction Event Type Date Status Iodine anaphylaxis Drug Allergy May, Active Dilaudid Hallucinations Drug Allergy May, Active Depakote CP Drug Allergy May, Active Bactrim DS swelling of joint Drug Allergy May, Active ENCOUNTERS Encounter Location Date Diagnosis [facility] [address] [facility] [id number] [address] Sep, Anxiety, generalized F41.1 and Chronic pain due to trauma G89.21 [facility] [address] [id number] [address] Sep, [place] [address] [address] [id number] [place] [address] Sep, Otalgia of left ear H92.02 and Low pressure hydrocephalus G91.2 [place] [address] [address] Sep, [place] [address] [address] Aug, Essential hypertension I10 ; 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 ; Empty sella syndrome E23.6 ; Pernicious anemia D51.0 ; Anxiety , generalized F41.1 ; Major depressive disorder, recurrent episode, moderate F33.1 ; Primary insomnia F51.01 ; Hypokalemia E87.6 and Chronic pain due to trauma G89.21 [place] [address] [address] Aug, [address] [address] Aug, Anxiety, generalized F41.1 and Osteoarthritis of spine with radiculopathy, lumbosacral region M47.27 [place] [address] [address] Aug, [place] [address] [address] Aug, Primary insomnia F51.01 [place] [address] [address] July, Anxiety, generalized F41.1 and Osteoarthritis of spine with radiculopathy, lumbosacral region M47.27 [place] [address] [address] 8[address] July, Essential hypertension I10 [place] [address] [place] [id number] [place] [address] 82054[address] 5592 July, Major depressive disorder, recurrent episode, moderate F33.1 [place] [address] [place] [address] July, Primary insomnia F51.01 [place] [address] [address] Jun, Anxiety, generalized F41.1 and Osteoarthritis of spine with radiculopathy, lumbosacral region M47.27 [facility] [address] [address] Jun, Acute frontal sinusitis, recurrence not specified J01.10 ; Sinus pressure J34.89 ; Post-nasal drip R09.82 and Sore throat J02.9 [place] [address] 28[address]- 5686 Jun, Primary insomnia F51.01 [place] [address] 56986[address] 5[address] May, Anxiety, generalized F41.1 and Osteoarthritis of spine with radiculopathy, lumbosacral region M47.27 [place] [address] 71581[address] 8494 May, Essential hypertension I10 ; 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 ; Empty sella syndrome E23.6 ; Pernicious anemia D51.0 ; Major depressive disorder, recurrent episode, moderate F33.1 ; Primary insomnia F51.01 ; Other hyperlipidemia E78.4 and Anxiety, generalized F41.1 [place] [address] [place] [id number] [place] [address] 79975- 5275 May, Vitamin B12 deficiency anemia due to intrinsic factor deficiency D51.0 and Pernicious anemia D51.0 [facility] [address] [address] May, Migraine without status migrainosus, not intractable, unspecified migraine type G43.909 [place] [address] [place] [id number] [place] [address] 36698- 0581 May, [place] [address] [place] [address] [place] [address] 14 May, 2017 [place] [address] [place] [id number] [place] [address] 39632- 1039 May, Osteoarthritis of spine with radiculopathy, lumbosacral region M47.27 and Primary insomnia F51.01 [place] [address] [address] [id number] [place] [address] 53292- 9238 May, Osteoarthritis of spine with radiculopathy, lumbosacral region M47.27 and Anxiety, generalized F41.1 [place] [address] [place] [address] [id number] [place] [address] 51762- 7817 May, [place] [address] 120[address]- [address] 28 Apr, 2017 [place] [address] 82467- 6367 19 Apr, 2017 [place] [address] 62987- 4951 13 Apr, 2017 Anxiety, generalized F41.1 ; Major depressive disorder, recurrent episode, moderate F33.1 ; Moderate episode of recurrent major depressive disorder F33.1 and Adjustment disorder with mixed anxiety and depressed mood F43.23 [place] [address] [place] [address] [id number] [place] [address] 78447- 2180 Apr, Major depressive disorder, recurrent episode, moderate F33.1 ; Anxiety, generalized F41.1 ; Essential hypertension I10 ; Primary insomnia F51.01 and 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 [place] [address] [place] [address] [id number] [place] [address] 20704- 4[address] 09 Apr, 2017 Other chest pain R07.89 ; Sinus bradycardia R00.1 ; Essential hypertension I10 and Other hyperlipidemia E78.4 [place] [address] [place] [address] [id number] [place] [address] 30060- 7774 08 Apr, 2017 Primary insomnia F51.01 [place] [address] [place] [address] 06 Apr, 2017 [facility] [address] [address] Apr, Anxiety, generalized F41.1 [place] [address] 89165- 0260 Apr, Osteoarthritis of spine with radiculopathy, lumbosacral region M47.27 [place] [address] 98704[address] 8085 Mar, Intractable migraine without aura and without status migrainosus G43.019 and Dyshidrotic hand dermatitis L30.1 [facility] [place] [address] [address] Mar, Skin infection L08.9 [place] [address] 52261- 1769 Mar, [facility] [address] [place] [id number] [place] [address] Mar, Skin lesion L98.9 [place] [address] 89000- 6271 Mar, Primary insomnia F51.01 and Anxiety, generalized F41.1 [place] [address] 35086- 1825 Mar, Osteoarthritis of spine with radiculopathy, lumbosacral region M47.27 [place] [address] [place] [id number] [place] [address] 81662- 9514 Feb, [place] [address] 19315- 6347 Feb, [place] [address] 82539- 7533 Feb, Hypokalemia E87.6 [place] [address] 05832- 7929 Feb, Intractable migraine without aura and without status migrainosus G43.019 and Other chest pain R07.89 [place] [address] [place] [id number] [place] [address] 28646- 4955 Feb, [place] [address] 29372- 0583 Feb, Osteoarthritis of spine with radiculopathy, lumbosacral region M47.27 [place] [address] 18614- 0036 Feb, Hypokalemia E87.6 [place] [address] 81415- 9979 Feb, [place] [address] 51750- 7003 Feb, Primary insomnia F51.01 and Anxiety, generalized F41.1 [facility] [place] [address] 61350 [address] Feb, Acute suppurative otitis media of both ears without spontaneous rupture of tympanic membranes, recurrence not specified H66.003 [place] [address] [place] [address] [id number] [place] [address] 41725- 3395 Feb, [place] [address] [place] [address] [id number] [place] [address] 55584- 8254 Jan, Osteoarthritis of spine with radiculopathy, lumbosacral region M47.27 [place] [address] [place] [address] [id number] [place] [address] 93354- 8995 Jan, Primary insomnia F51.01 and Anxiety, generalized F41.1 [place] [address] 86715- 9666 Jan, Chronic pain due to trauma G89.21 ; Left otitis media with effusion H65.92 and Otalgia of left ear H92.02 [facility] [place] [address] [place] [address] Jan, Bilateral otitis media with effusion H65.93 [place] [address] 25145- 5203 Dec, [place] [address] 91580- 9396 Dec, Primary insomnia F51.01 and Anxiety, generalized F41.1 [place] [address] 81175- 7157 Nov, [place] [address] 71865- 8136 Nov, [place] [address] 45328- 1899 Nov, Anxiety, generalized F41.1 [place] [address] 04625- 9171 Nov, Pernicious anemia D51.0 [place] [address] 07472- 8099 Nov, Primary insomnia F51.01 [place] [address] 33907- 2675 Nov, Encounter for well woman exam with routine gynecological exam Z01.419 ; Screening breast examination Z12.31 and Otalgia of left ear H92.02 [place] [address] [place] [id number] [place] [address] 73001- 7120 Oct, [facility] [address] [address] 14 Oct, 2016 Insect bite (nonvenomous) of right upper arm, initial encounter S40.861A [place] [address] [place] [id number] [place] [address] 11539- 8217 Oct, Pernicious anemia D51.0 [place] [address] 60805- 4928 Oct, Anxiety, generalized F41.1 and Pernicious anemia D51.0 [place] [address] [place] [id number] [place] [address] 49849- 7801 Oct, Encounter to establish care with new doctor Z76.89 ; Moderate episode of recurrent major depressive disorder F33.1 ; Empty sella syndrome E23.6 ; Seasonal allergic rhinitis, unspecified allergic rhinitis trigger J30.2 ; Essential hypertension I10 and Osteoarthritis of spine with radiculopathy, lumbosacral region M47.27 [place] [address] 13310- 7919 Aug, [place] [address] 01160- 6326 Aug, [place] [address] 90387- 5205 Aug, Anxiety, generalized F41.1 [place] [address] 76233- 5265 Aug, [place] [address] 74998- 8853 07 Aug, 2016 Primary insomnia F51.01 ; Essential hypertension I10 ; Empty sella syndrome E23.6 and Chronic pain due to trauma G89.21 [place] [address] [place] [id number] [place] [address] 19327- 4241 July, Primary insomnia F51.01 [facility] [address] [address]87[address] July, Seasonal allergic rhinitis, unspecified allergic rhinitis trigger J30.2 and Acute suppurative otitis media of right ear without spontaneous rupture of tympanic membrane, recurrence not specified H66.001 [facility] [id number] [place] [address] 92427 [address]9440 July, Acute suppurative otitis media of left ear without spontaneous rupture of tympanic membrane, recurrence not specified H66.002 [place] [address] [place] [address] July, [facility] [id number] [place] [address] 58958- 4033 July, Anxiety, generalized F41.1 [facility] [address] [id number] [address] Jun, [facility] [id number] [place] [address] 40090- 8207 Jun, Primary insomnia F51.01 [facility] [id number] [place] [address] 53307- 9612 Jun, Empty sella syndrome E23.6 ; Primary insomnia F51.01 and Hypokalemia E87.6 [facility] [address] [place] [address] 90231- 8920 Jun, [facility] [id number] [place] [address] 61839- 5936 Jun, [facility] [id number] [place] [address] 56159- 0824 Jun, Empty sella syndrome E23.6 [facility] [id number] [place] [address] 19761- 9520 Jun, Anxiety, generalized F41.1 [facility] [id number] [place] [address] 19842- 8993 Jun, [facility] [id number] [place] [address] 97766- 1720 Jun, Empty sella syndrome E23.6 [facility] [id number] [place] [address] 13916- 4477 May, [facility] [id number] [place] [address] 48845- 9442 May, [facility] [address] [place] [address] 65075- 0052 May, Empty sella syndrome E23.6 [facility] [id number] [place] [address] 28716- 2340 May, [facility] [address] 43954- 0281 24 May, 2016 [facility] [id number] [place] [address] 28416- 8292 May, Primary insomnia F51.01 [facility] [address] 08193- 7699 May, [facility] [address] 70469- 3259 May, Nausea R11.0 ; Other headache syndrome G44.89 and Malignant hypertension I10 [place] [address] 98404- 9533 07 May, 2016 Anxiety, generalized F41.1 [place] [address] 07816- 2251 28 Apr, 2016 Major depressive disorder, recurrent episode, moderate F33.1 [place] [address] 77148- 1825 28 Apr, 2016 Moderate episode of recurrent major depressive disorder F33.1 [place] [address] [place] [id number] [place] [address] 64991- 5029 27 Apr, 2016 Other chronic postprocedural pain G89.28 [facility] [id number] [place] [address] 71236- 8338 15 Apr, 2016 Major depressive disorder, recurrent episode, moderate F33.1 [facility] [id number] [place] [address] 47609- 3165 07 Apr, 2016 Anxiety, generalized F41.1 [facility] [id number] [place] [address] 02061- 9513 03 Apr, 2016 [facility] [address] 91702- 8789 Mar, Other chronic postprocedural pain G89.28 ; Status post craniotomy Z98.890 ; Encounter for drug screening Z02.83 and Hematuria R31.9 [place] [address] [address] [id number] [place] [address] 81528- 4157 Mar, Major depressive disorder, recurrent episode, moderate F33.1 [place] [address] 17287- 2626 Mar, [place] [address] 12132- 5614 Mar, Anxiety, generalized F41.1 [place] [address] 77901- 4599 Mar, Anxiety, generalized F41.1 and Pernicious anemia D51.0 [place] [address] 28882- 1127 Mar, 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 and Status post craniotomy Z98.890 [place] [address] 12588- 5612 Mar, Primary insomnia F51.01 [place] [address] [place] [id number] [place] [address] 15969- 6158 Feb, [place] [address] 68421- 6060 Feb, Encounter to establish care Z76.89 ; Status post craniotomy Z98.890 ; 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 ; Hypokalemia E87.6 ; Essential hypertension I10 ; Other hyperlipidemia E78.4 ; Pernicious anemia D51.0 ; Other depression F32.89 and Chronic nausea R11.0 IMMUNIZATIONS Vaccine Route Administration Date Status TORADOL (IM) 60 MG/2ML (UP TO 15 MG) IM Intramuscular June 18, 2017 Administered ZOFRAN (IM) 2 MG/ML (PER 1 MG) 40 MG/20 ML IM Intramuscular June 18, 2017 Administered SOCIAL HISTORY Never Assessed REASON FOR VISIT Migraine Pt reports migraine which started at 4 AM at back of skull, lights and sounds make it worse does have nausea with this AMELIE Lin PLAN OF CARE Activity Details Follow Up prn Reason: VITAL SIGNS Height 67 in 2017-06-18 Weight 139.2 lbs 2017-06-18 Temperature 98.0 degrees Fahrenheit 2017-06-18 Heart Rate 80 bpm 2017-06-18 Respiratory Rate 20 2017-06-18 BMI 21.80 kg/m2 2017-06-18 Blood pressure systolic 120 mmHg 2017-06-18 Blood pressure diastolic 78 mmHg 2017-06-18 MEDICATIONS Medication Instructions Dosage Frequency Start Date End Date Duration Status Folic Acid 400 MCG Orally Once a day 1 tablet 24h Active Oxycodone-Acetaminophen 7.5-325 MG Orally 3 times a day 1 tablet as needed 8h May, 28 days Active Lisinopril 40 MG Orally Once a day 1 tablet 24h 90 days Active Ambien 10 mg Orally Once a day 1 tablet at bedtime as needed 24h Mar, 28 days Active Pravastatin Sodium 80 MG TAKE ONE TABLET BY MOUTH ONCE DAILY 90 Active Ibuprofen 200 mg Orally Once a day 1 tablet with food or milk as needed 24h Active Duloxetine HCl 30 MG Orally Once a day in the AM 1 capsule Active Tizanidine HCl 4 MG TAKE ONE TABLET BY MOUTH THREE TIMES DAILY NEEDED 30 Active Chlorthalidone 25 MG Orally Once a day 1/2 tablet 24h Feb, 90 days Active Potassium Chloride Jaycee ER 10 MEQ TAKE ONE TABLET BY MOUTH ONCE DAILY WITH FOOD 30 Active Temazepam 15 mg Orally Once a day 1 capsule at bedtime as needed 24h Apr 30 days Not-Taking Potassium Chloride ER 10 MEQ Orally Once a day 1 tablet with food 24h 30 Active Amlodipine Besylate 5 MG Orally Once a day 1 tablet 24h Feb, 90 days Active Metoprolol Tartrate 25 MG TAKE 1/2 TABLET BY MOUTH TWICE DAILY WITH FOOD Aug, Active Cyanocobalamin 1000 MCG/ML INJECT 1 ML INTRAMUSCULARLY ONCE MONTHLY 28 Active Ipratropium [place] 0.06 % Nasally Three times a day 2 sprays in each nostril as needed 8h Not-Taking PredniSONE 10 mg 4 tabs x 4 days, 3 tabs x 4 days, 2 tabs x 4 days, 1 x 4 days May, Active Vitamin D 400 UNIT Orally Once a day 2 capsules 24h Active Fluticasone Propionate 50 MCG/ACT Nasally Once a day 1 spray in each nostril 24h Not-Taking Xanax 0.5 MG Orally Three times a day 1 tablet 8h 25 days Active BD Syringe/Needle 23GX1 For use with injectable B12 Active BuSpar 10 mg Orally 3 times a day 1 tablet 8h 13 Apr, 2017 14 days Not -Taking RESULTS No Results PROCEDURES Procedure Date Ordered Result Body Site ZOFRAN (IM) 2 MG/ML (PER 1 MG) 40 MG/20 ML June 18, 2017 TORADOL (IM) 60 MG/2ML (UP TO 15 MG) June 18, 2017 THER/PROPH/DIAG INJ, SC/IM June 18, 2017 INSTRUCTIONS MEDICATIONS ADMINISTERED No Known Medications [...] 09/14/17 Hospitalization History surgery only Hospitalization History . [facility] 02/2017
--- OUTSIDE RECORDS SUMMARY | 2017-11-05 12:19 | XMS REPORT ---
Author Author OSBALDO CORRAL Organization [facility] Address [address] [place] [address] Care Team Providers Care Face Painter Name Role Phone OSBALDO CORRAL Unavailable PROBLEMS Type Condition ICD9-CM Code [id number] Code Onset Dates Condition Status SNOMED Code Problem Primary insomnia F51.01 Active 9022895 Problem Major depressive disorder, recurrent episode, moderate F33.1 Active 856446782 Problem Anxiety, generalized F41.1 Active 77716601 Problem Vitamin B12 deficiency anemia due to intrinsic factor deficiency D51.0 Active 97819943 Problem Migraine without status migrainosus, not intractable, unspecified migraine type G43.909 Active 30131233 Problem Essential hypertension I10 Active 66122008 Problem Chronic pain due to trauma G89.21 Active 245783516 Problem Adjustment disorder with mixed anxiety and depressed mood F43.23 Active 75373304 Problem Seasonal allergic rhinitis, unspecified allergic rhinitis trigger J30.2 Active 659940078 Problem Empty sella syndrome E23.6 Active 813614883 Problem 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 Active 56139287 Problem Pernicious anemia D51.0 Active 04909391 Problem Hypokalemia E87.6 Active 56804781 Problem Other hyperlipidemia E78.4 Active 51200300 ALLERGIES Substance Reaction Event Type Date Status Iodine anaphylaxis Drug Allergy May, Active Dilaudid Hallucinations Drug Allergy May, Active Depakote CP Drug Allergy May, Active Bactrim DS swelling of joint Drug Allergy May, Active ENCOUNTERS Encounter Location Date Diagnosis [facility] [id number], [place] [address] Sep, Anxiety, generalized F41.1 and Chronic pain due to trauma G89.21 [facility] [id number], [place] [address] Sep, [facility] [id number] [place] [address] Sep, Otalgia of left ear H92.02 and Low pressure hydrocephalus G91.2 [place] [address] [address] Sep, [place] [address] [address] Aug, Essential hypertension I10 ; 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 ; Empty sella syndrome E23.6 ; Pernicious anemia D51.0 ; Anxiety , generalized F41.1 ; Major depressive disorder, recurrent episode, moderate F33.1 ; Primary insomnia F51.01 ; Hypokalemia E87.6 and Chronic pain due to trauma G89.21 [place] [id number] [place] [address]- [address]269 Aug, [place] [address] [address] Aug, Anxiety, generalized F41.1 and Osteoarthritis of spine with radiculopathy, lumbosacral region M47.27 [place] [address] [address] Aug, [place] [address] [address] Aug, Primary insomnia F51.01 [place] [address] [address] July, Anxiety, generalized F41.1 and Osteoarthritis of spine with radiculopathy, lumbosacral region M47.27 [place] [address] [address] July, Essential hypertension I10 [place] [id number] [place] [address] 57525- 4233 July, Major depressive disorder, recurrent episode, moderate F33.1 [place] [address] [place] [address] July, Primary insomnia F51.01 [place] [address] [id number] Jun, Anxiety, generalized F41.1 and Osteoarthritis of spine with radiculopathy, lumbosacral region M47.27 [facility] [address] [address] Jun, Acute frontal sinusitis, recurrence not specified J01.10 ; Sinus pressure J34.89 ; Post-nasal drip R09.82 and Sore throat J02.9 [place] [address] [address] Jun, Primary insomnia F51.01 [place] [address] [address]- [address] May, Anxiety, generalized F41.1 and Osteoarthritis of spine with radiculopathy, lumbosacral region M47.27 [place] [id number] [place] [address] 49[address]- 7089 May, Essential hypertension I10 ; 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 ; Empty sella syndrome E23.6 ; Pernicious anemia D51.0 ; Major depressive disorder, recurrent episode, moderate F33.1 ; Primary insomnia F51.01 ; Other hyperlipidemia E78.4 and Anxiety, generalized F41.1 [place] [id number] [place] [address] 65233- 0913 May, Vitamin B12 deficiency anemia due to intrinsic factor deficiency D51.0 and Pernicious anemia D51.0 [facility] [address] [address] May, Migraine without status migrainosus, not intractable, unspecified migraine type G43.909 [place] [address] [address]- [address] May, [place] [address] [place] [address] 14 May, 2017 [place] [id number] [place] [address]- [address] May, Osteoarthritis of spine with radiculopathy, lumbosacral region M47.27 and Primary insomnia F51.01 [place] [id number] [place] [address] 95393- 9918 May, Osteoarthritis of spine with radiculopathy, lumbosacral region M47.27 and Anxiety, generalized F41.1 [place] [address] [address]- [address] May, [place] [address] [address]- [address] 28 Apr, 2017 [place] [id number] [place] [address]- [address] 19 Apr, 2017 [place] [address] [address]- [address] 13 Apr, 2017 Anxiety, generalized F41.1 ; Major depressive disorder, recurrent episode, moderate F33.1 ; Moderate episode of recurrent major depressive disorder F33.1 and Adjustment disorder with mixed anxiety and depressed mood F43.23 [place] [id number] [place] [address] 8[address]46- [address] 13 Apr, 2017 Major depressive disorder, recurrent episode, moderate F33.1 ; Anxiety, generalized F41.1 ; Essential hypertension I10 ; Primary insomnia F51.01 and 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 [place] [id number] [place] [address] 6[address]- 8465 09 Apr, 2017 Other chest pain R07.89 ; Sinus bradycardia R00.1 ; Essential hypertension I10 and Other hyperlipidemia E78.4 [place] [id number] [place] [address]39- 48[address] 08 Apr, 2017 Primary insomnia F51.01 [place] [address] [place] [address] 06 Apr, 2017 [place] [address] [address] Apr, Anxiety, generalized F41.1 [place] [address] [address]- [address]897 Apr, Osteoarthritis of spine with radiculopathy, lumbosacral region M47.27 [place] [address] [address]- [address] Mar, Intractable migraine without aura and without status migrainosus G43.019 and Dyshidrotic hand dermatitis L30.1 [facility] [place] [address] [address] Mar, Skin infection L08.9 [place] [address] 9[address]- [address] Mar, [facility] [address] [address] Mar, Skin lesion L98.9 [place] [address] 111[address]- 8[address] Mar, Primary insomnia F51.01 and Anxiety, generalized F41.1 [place] [address] [address]- [address] Mar, Osteoarthritis of spine with radiculopathy, lumbosacral region M47.27 [place] [id number] [place] [address] 60[address]- [address] Feb, [place] [address] 6[address] Feb, [place] [address] [address]- [address] Feb, Hypokalemia E87.6 [place] [address] 9[address]- [address]17 Feb, Intractable migraine without aura and without status migrainosus G43.019 and Other chest pain R07.89 [place] [address] 48040- 5[address] Feb, [place] [address] 25700- 1274 Feb, Osteoarthritis of spine with radiculopathy, lumbosacral region M47.27 [place] [address] 17[address]- 6[address] Feb, Hypokalemia E87.6 [place] [address] 28261- 9977 Feb, [place] [address] 15314- [address]240 Feb, Primary insomnia F51.01 and Anxiety, generalized F41.1 [facility] [place] [address] [address] Feb, Acute suppurative otitis media of both ears without spontaneous rupture of tympanic membranes, recurrence not specified H66.003 [place] [id number] [place] [address]84- 5382 Feb, [place] [address] [address]- [address] Jan, Osteoarthritis of spine with radiculopathy, lumbosacral region M47.27 [place] [id number] [place] [address] 47562- 6687 Jan, Primary insomnia F51.01 and Anxiety, generalized F41.1 [place] [address] [address]- [address] Jan, Chronic pain due to trauma G89.21 ; Left otitis media with effusion H65.92 and Otalgia of left ear H92.02 [facility] [address] [address] Jan, Bilateral otitis media with effusion H65.93 [place] [address] 74[address]- [address] Dec, [place] [address] [address]- [address]596 Dec, Primary insomnia F51.01 and Anxiety, generalized F41.1 [place] [address] 08[address]- [address]991 Nov, [place] [address] [address]- [address] Nov, [place] [address] [address]91- 8[address] Nov, Anxiety, generalized F41.1 [place] [address] 14[address]- 6767 Nov, Pernicious anemia D51.0 [place] [address] 45197- 9999 Nov, Primary insomnia F51.01 [place] [address] 0[address]87- 8013 Nov, Encounter for well woman exam with routine gynecological exam Z01.419 ; Screening breast examination Z12.31 and Otalgia of left ear H92.02 [place] [address] 6[address]- [address]66 Oct, [facility] [address] [address] 14 Oct, 2016 Insect bite (nonvenomous) of right upper arm, initial encounter S40.861A [place] [address] 737[address]- [address] Oct, Pernicious anemia D51.0 [place] [address] 9[address]12- 4099 Oct, Anxiety, generalized F41.1 and Pernicious anemia D51.0 [place] [id number] [place] [address] 83298- 5247 Oct, Encounter to establish care with new doctor Z76.89 ; Moderate episode of recurrent major depressive disorder F33.1 ; Empty sella syndrome E23.6 ; Seasonal allergic rhinitis, unspecified allergic rhinitis trigger J30.2 ; Essential hypertension I10 and Osteoarthritis of spine with radiculopathy, lumbosacral region M47.27 [place] [address] 8[address]85- [address]44 Aug, [place] [address] [address]- [address]42 Aug, [place] [address] 10013- 6735 Aug, Anxiety, generalized F41.1 [place] [address] 05879- 7108 08 Aug, 2016 [place] [address] 25089- 5570 Aug, Primary insomnia F51.01 ; Essential hypertension I10 ; Empty sella syndrome E23.6 and Chronic pain due to trauma G89.21 [place] [address] 39460- 3973 July, Primary insomnia F51.01 [facility] [id number] [place] [address] 62752 -[address] July, Seasonal allergic rhinitis, unspecified allergic rhinitis trigger J30.2 and Acute suppurative otitis media of right ear without spontaneous rupture of tympanic membrane, recurrence not specified H66.001 [facility] [id number] [place] [address] July, Acute suppurative otitis media of left ear without spontaneous rupture of tympanic membrane, recurrence not specified H66.002 [place] [address] [place] [address] July, [facility] [id number] [place] [address] 55483- 6416 July, Anxiety, generalized F41.1 [facility] [id number] [place] [address] 41157- 4240 Jun, [facility] [id number] [place] [address] 27302- 5819 Jun, Primary insomnia F51.01 [facility] [id number] [place] [address] 51608- 8287 Jun, Empty sella syndrome E23.6 ; Primary insomnia F51.01 and Hypokalemia E87.6 [facility] [id number] [place] [address] 38882- 8542 Jun, [facility] [id number] [place] [address] 41624- 3377 Jun, [facility] [id number] [place] [address] 47973- 5726 Jun, Empty sella syndrome E23.6 [facility] [id number] [place] [address] 60057- 6892 Jun, Anxiety, generalized F41.1 [facility] [id number] [place] [address] 92495- 2215 Jun, [facility] [id number] [place] [address] 70823- 0238 Jun, Empty sella syndrome E23.6 [facility] [id number] [place] [address] 67973- 0967 May, [facility] [id number] [place] [address] 79706- 7668 May, [facility] [id number] [place] [address] 08695- 1834 May, Empty sella syndrome E23.6 [facility] [id number] [place] [address] 86000- 2764 May, [facility] [address] 45513- [address]757 May, [facility] [id number] [place] [address] 34698- 5471 May, Primary insomnia F51.01 [facility] [address] 81703- [address]127 May, [facility] [id number] [place] [address] 90766- 2505 May, Nausea R11.0 ; Other headache syndrome G44.89 and Malignant hypertension I10 [place] [id number] [place] [address] 29678- 9900 07 May, 2016 Anxiety, generalized F41.1 [place] [id number] [place] [address] 51619- 2612 28 Apr, 2016 Major depressive disorder, recurrent episode, moderate F33.1 [place] [id number] [place] [address] 34992- 2235 28 Apr, 2016 Moderate episode of recurrent major depressive disorder F33.1 [place] [id number] [place] [address] 85503- 1535 27 Apr, 2016 Other chronic postprocedural pain G89.28 [facility] [id number] [place] [address] 82188- 7162 15 Apr, 2016 Major depressive disorder, recurrent episode, moderate F33.1 [facility] [id number] [place] [address] 50355- 5100 07 Apr, 2016 Anxiety, generalized F41.1 [facility] [id number] [place] [address] 61985- 1299 03 Apr, 2016 [facility] [id number] [place] [address] 76599- 2205 Mar, Other chronic postprocedural pain G89.28 ; Status post craniotomy Z98.890 ; Encounter for drug screening Z02.83 and Hematuria R31.9 [place] [id number] [place] [address] 83149- 1629 Mar, Major depressive disorder, recurrent episode, moderate F33.1 [place] [address] 30755- 9511 Mar, [place] [address] 96054- 5045 Mar, Anxiety, generalized F41.1 [place] [address] 20931- 0358 Mar, Anxiety, generalized F41.1 and Pernicious anemia D51.0 [place] [address] 75305- 2863 Mar, 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 and Status post craniotomy Z98.890 [place] [id number] [place] [address] 33993- 5497 Mar, Primary insomnia F51.01 [place] [id number] [place] [address] 01160- 9142 Feb, [place] [id number] [place] [address] 14041- 0577 Feb, Encounter to establish care Z76.89 ; Status post craniotomy Z98.890 ; 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 ADELIA Cardenas, Increased crainial pressure, dots in vision, pain behind eyes, facial tremors/muscle spasms, incision tenderness/itching, imbalanced and increased fatigue. , Referral to neuro. PLAN OF CARE Activity Details Follow Up 3 Months, prn Reason: VITAL SIGNS Height 67 in 2017-06-22 Weight 141 lbs 2017-06-22 Temperature 99 degrees Fahrenheit 2017-06-22 Heart Rate 57 bpm 2017-06-22 Respiratory Rate 18 2017-06-22 BMI 22.08 kg/m2 2017-06-22 Blood pressure systolic 114 mmHg 2017-06-22 Blood pressure diastolic 62 mmHg 2017-06-22 MEDICATIONS Medication Instructions Dosage Frequency Start Date End Date Duration Status BD Syringe/Needle 23GX1 For use with injectable B12 Active Tylenol Active Lisinopril 40 MG Orally Once a day 1 tablet 24h Active Fluticasone Propionate 50 MCG/ACT Nasally Once a day 1 spray in each nostril 24h Not-Taking Duloxetine HCl 30 MG Orally Once a day in the AM 1 capsule Active Potassium Chloride Jaycee ER 10 MEQ TAKE ONE TABLET BY MOUTH ONCE DAILY WITH FOOD 30 Active Oxycodone-Acetaminophen 7.5-325 MG Orally 3 times a day 1 tablet as needed 8h May, 28 days Active Temazepam 15 mg Orally Once a day 1 capsule at bedtime as needed 24h Apr 30 days Not-Taking Pravastatin Sodium 80 MG TAKE ONE TABLET BY MOUTH ONCE DAILY Active Ambien 10 mg Orally Once a day 1 tablet at bedtime as needed 24h Mar, Active Folic Acid 400 MCG Orally Once a day 1 tablet 24h Active Metoprolol Tartrate 25 MG TAKE 1/2 TABLET BY MOUTH TWICE DAILY WITH FOOD Aug, Active PredniSONE 10 mg 4 tabs x 4 days, 3 tabs x 4 days, 2 tabs x 4 days, 1 x 4 days May, Active Amlodipine Besylate 5 MG Orally Once a day 1 tablet 24h Feb, Active BuSpar 10 mg Orally 3 times a day 1 tablet 8h Apr, 14 days Not -Taking Chlorthalidone 25 MG Orally Once a day 1/2 tablet 24h Feb, Active Xanax 0.5 MG Orally Three times a day 1 tablet 8h Active Tizanidine HCl 4 MG TAKE ONE TABLET BY MOUTH THREE TIMES DAILY NEEDED 30 Active Ibuprofen 200 mg Orally Once a day 1 tablet with food or milk as needed 24h Active Cyanocobalamin 1000 MCG/ML INJECT 1 ML INTRAMUSCULARLY ONCE MONTHLY May, 1 dose Active Ipratropium Meta 0.06 % Nasally Three times a day 2 sprays in each nostril as needed 8h Not-Taking Vitamin D 400 UNIT Orally Once a day 2 capsules 24h Active RESULTS No Results PROCEDURES Procedure Date Ordered Result Body Site LAB NOT BILLED BY [email or web address] June 22, 2017 [place]* June 22, 2017 INSTRUCTIONS MEDICATIONS ADMINISTERED No Known Medications [...] Hospitalization History surgery only Hospitalization History [facility] 02/2017
--- OUTSIDE RECORDS SUMMARY | 2017-11-05 12:20 | XMS REPORT ---
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 Name Role Phone OSBALDO CORRAL Unavailable PROBLEMS Type Condition ICD9-CM Code DQP67-GR Code Onset Dates Condition Status SNOMED Code Problem Primary insomnia F51.01 Active 3906494 Problem Major depressive disorder, recurrent episode, moderate F33.1 Active 709675921 Problem Anxiety, generalized F41.1 Active 14377071 Problem Vitamin B12 deficiency anemia due to intrinsic factor deficiency D51.0 Active 58804926 Problem Migraine without status migrainosus, not intractable, unspecified migraine type G43.909 Active 94634240 Problem Essential hypertension I10 Active 06131110 Problem Chronic pain due to trauma G89.21 Active 785789956 Problem Adjustment disorder with mixed anxiety and depressed mood F43.23 Active 65506800 Problem Seasonal allergic rhinitis, unspecified allergic rhinitis trigger J30.2 Active 942148400 Problem Empty sella syndrome E23.6 Active 740324811 Problem 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 Active 47553306 Problem Pernicious anemia D51.0 Active 94137240 Problem Hypokalemia E87.6 Active 51547748 Problem Other hyperlipidemia E78.4 Active 68143245 ALLERGIES No Information ENCOUNTERS Encounter Location Date Diagnosis [place] [id number] [place] [address] 91401- 6768 Sep, Anxiety, generalized F41.1 and Chronic pain due to trauma G89.21 [facility] [place] [id number] [place] [address] 98272- 3538 Sep, [place] [id number] [place] [address] 59337- 5212 Sep, Otalgia of left ear H92.02 and Low pressure hydrocephalus G91.2 [place] [address] [place] [id number] [place] [address] 38653- 8546 Sep, [place] [address] 18882- 8470 Aug, Essential hypertension I10 ; 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 ; Empty sella syndrome E23.6 ; Pernicious anemia D51.0 ; Anxiety , generalized F41.1 ; Major depressive disorder, recurrent episode, moderate F33.1 ; Primary insomnia F51.01 ; Hypokalemia E87.6 and Chronic pain due to trauma G89.21 [place] [address] [place] [id number] [place] [address] 36007- 2239 Aug, [place] [address] 79412- 4292 Aug, Anxiety, generalized F41.1 and Osteoarthritis of spine with radiculopathy, lumbosacral region M47.27 [place] [address] 98517- 9172 Aug, [place] [address] [place] [id number] [place] [address] 50232- 5709 Aug, Primary insomnia F51.01 [place] [address] [place] [id number] [place] [address] 52557- 2251 July, Anxiety, generalized F41.1 and Osteoarthritis of spine with radiculopathy, lumbosacral region M47.27 [place] [address] [place] [id number] [place] [address] 07392- 8182 July, Essential hypertension I10 [place] [address] [place] [id number] [place] [address] 33423- 3555 July, Major depressive disorder, recurrent episode, moderate F33.1 [place] [address] [place] [id number] [place] [address] 01027- 7262 July, Primary insomnia F51.01 [place] [address] [place] [id number] [place] [address] 11001- 2569 Jun, Anxiety, generalized F41.1 and Osteoarthritis of spine with radiculopathy, lumbosacral region M47.27 [facility] [address] 92903 -2517 Jun, Acute frontal sinusitis, recurrence not specified J01.10 ; Sinus pressure J34.89 ; Post-nasal drip R09.82 and Sore throat J02.9 [place] [address] 02235- 4261 Jun, Primary insomnia F51.01 [place] [address] 93364- 3271 May, Anxiety, generalized F41.1 and Osteoarthritis of spine with radiculopathy, lumbosacral region M47.27 [place] [address] 79884- 1394 May, Essential hypertension I10 ; 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 ; Empty sella syndrome E23.6 ; Pernicious anemia D51.0 ; Major depressive disorder, recurrent episode, moderate F33.1 ; Primary insomnia F51.01 ; Other hyperlipidemia E78.4 and Anxiety, generalized F41.1 [place] [address] 35801- 3507 May, Vitamin B12 deficiency anemia due to intrinsic factor deficiency D51.0 and Pernicious anemia D51.0 [facility] [address] [place] [id number] [place] [address] 37329 -0349 May, Migraine without status migrainosus, not intractable, unspecified migraine type G43.909 [place] [address] 56167- 4547 May, [place] [address] 51785- 3949 May, [place] [address] 48717- 1218 May, Osteoarthritis of spine with radiculopathy, lumbosacral region M47.27 and Primary insomnia F51.01 [place] [address] 00666- 7113 May, Osteoarthritis of spine with radiculopathy, lumbosacral region M47.27 and Anxiety, generalized F41.1 [place] [address] 87230- 2453 May, [place] [address] 40684- 3496 Apr, [place] [address] 34819- 8438 Apr, [place] [address] 61109- 6698 Apr, Anxiety, generalized F41.1 ; Major depressive disorder, recurrent episode, moderate F33.1 ; Moderate episode of recurrent major depressive disorder F33.1 and Adjustment disorder with mixed anxiety and depressed mood F43.23 [place] [address] [place] [id number] [place] [address] 67894- 0094 Apr, Major depressive disorder, recurrent episode, moderate F33.1 ; Anxiety, generalized F41.1 ; Essential hypertension I10 ; Primary insomnia F51.01 and 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 [place] [address] 55482- 8037 09 Apr, 2017 Other chest pain R07.89 ; Sinus bradycardia R00.1 ; Essential hypertension I10 and Other hyperlipidemia E78.4 [place] [address] [place] [id number] [place] [address] 00698- 8157 08 Apr, 2017 Primary insomnia F51.01 [place] [address] 56157- 9024 Apr, [place] [address] 08999- 7218 Apr, Anxiety, generalized F41.1 [place] [address] 59879- 1565 Apr, Osteoarthritis of spine with radiculopathy, lumbosacral region M47.27 [place] [address] 77523- 9322 Mar, Intractable migraine without aura and without status migrainosus G43.019 and Dyshidrotic hand dermatitis L30.1 [facility] [address] 93177 -9095 Mar, Skin infection L08.9 [place] [address] 84555- 0668 Mar, [facility] [address] 97974 -5436 Mar, Skin lesion L98.9 [place] [address] 37335- 9801 Mar, Primary insomnia F51.01 and Anxiety, generalized F41.1 [place] [address] 65490- 3021 Mar, Osteoarthritis of spine with radiculopathy, lumbosacral region M47.27 [place] [address] 62167- 0344 Feb, [place] [address] 57936- 0639 Feb, [place] [address] 38181- 7297 Feb, Hypokalemia E87.6 [place] [address] 40948- 1031 Feb, Intractable migraine without aura and without status migrainosus G43.019 and Other chest pain R07.89 [place] [address] [place] [address]- 0993 Feb, [place] [address] 89855- 3989 14 Feb, 2017 Osteoarthritis of spine with radiculopathy, lumbosacral region M47.27 [place] [address] [place] [id number] [place] [address] 23633- 0847 13 Feb, 2017 Hypokalemia E87.6 [place] [address] 73233- 6400 08 Feb, 2017 [place] [address] 58467- 7171 Feb, Primary insomnia F51.01 and Anxiety, generalized F41.1 [facility] [place] [address] [place] [id number] [place] [address] 76248 -1123 Feb, Acute suppurative otitis media of both ears without spontaneous rupture of tympanic membranes, recurrence not specified H66.003 [place] [address] [place] [id number] [place] [address] 44744- 7152 Feb, [place] [address] 08258- 4007 Jan, Osteoarthritis of spine with radiculopathy, lumbosacral region M47.27 [place] [address] [place] [id number] [place] [address] 14983- 7570 Jan, Primary insomnia F51.01 and Anxiety, generalized F41.1 [place] [address] [place] [id number] [place] [address] 79675- 2639 02 Jan, 2017 Chronic pain due to trauma G89.21 ; Left otitis media with effusion H65.92 and Otalgia of left ear H92.02 [facility] [address] [place] [id number] [place] [address] 29177 -5176 Jan, Bilateral otitis media with effusion H65.93 [place] [address] 26269- 1913 Dec, [facility] [place] [address] [place] [address] 59924- 9884 Dec, Primary insomnia F51.01 and Anxiety, generalized F41.1 [facility] [place] [address] [place] [id number] [place] [address] 23080- 1747 Nov, [place] [address] 82112- 2365 Nov, [facility] [place] [address] 40132- 9025 Nov, Anxiety, generalized F41.1 [place] [address] 03934- 5300 Nov, Pernicious anemia D51.0 [place] [address] [place] [id number] [place] [address] 63193- 6651 Nov, Primary insomnia F51.01 [place] [address] 85332- 0798 Nov, Encounter for well woman exam with routine gynecological exam Z01.419 ; Screening breast examination Z12.31 and Otalgia of left ear H92.02 [place] [address] [place] [id number] [place] [address] 14212- 6092 Oct, [facility] [address] [place] [id number] [place] [address] 31225 -9607 Oct, Insect bite (nonvenomous) of right upper arm, initial encounter S40.861A [place] [address] [place] [id number] [place] [address] 82954- 1293 Oct, Pernicious anemia D51.0 [place] [address] 94646- 4865 Oct, Anxiety, generalized F41.1 and Pernicious anemia D51.0 [place] [address] 49789- 6475 Oct, Encounter to establish care with new doctor Z76.89 ; Moderate episode of recurrent major depressive disorder F33.1 ; Empty sella syndrome E23.6 ; Seasonal allergic rhinitis, unspecified allergic rhinitis trigger J30.2 ; Essential hypertension I10 and Osteoarthritis of spine with radiculopathy, lumbosacral region M47.27 [facility] [place] [address] [place] [id number] [place] [address] 03730- 2323 Aug, [facility] [place] [address] 34844- 9825 Aug, [place] [address] [place] [id number] [place] [address] 45462- 4952 Aug, Anxiety, generalized F41.1 [place] [address] 57440- 3659 Aug, [place] [address] 02929- 5065 Aug, Primary insomnia F51.01 ; Essential hypertension I10 ; Empty sella syndrome E23.6 and Chronic pain due to trauma G89.21 [place] [address] 57389- 7942 July, Primary insomnia F51.01 [facility] [address] [place] [id number] [place] [address] 60538 -0010 July, Seasonal allergic rhinitis, unspecified allergic rhinitis trigger J30.2 and Acute suppurative otitis media of right ear without spontaneous rupture of tympanic membrane, recurrence not specified H66.001 [facility] [address] [place] [id number] [place] [address] 73091 -2514 July, Acute suppurative otitis media of left ear without spontaneous rupture of tympanic membrane, recurrence not specified H66.002 [facility] [place] [address] [place] [id number] [place] [address] 84148- 3981 July, [facility] [place] [address] 92374- 8312 July, Anxiety, generalized F41.1 [facility] [place] [address] [place] [id number] [place] [address] 23321- 2822 Jun, [facility] [place] [address] [place] [id number] [place] [address] 76906- 7987 Jun, Primary insomnia F51.01 [facility] [place] [address] [place] [id number] [place] [address] 31505- 4345 Jun, Empty sella syndrome E23.6 ; Primary insomnia F51.01 and Hypokalemia E87.6 [facility] [place] [address] [place] [id number] [place] [address] 26044- 3847 Jun, [facility] [place] [address] [place] [id number] [place] [address] 99057- 5910 Jun, [facility] [place] [address] [place] [id number] [place] [address] 16714- 8378 Jun, Empty sella syndrome E23.6 [facility] [place] [address] [place] [id number] [place] [address] 88915- 4690 Jun, Anxiety, generalized F41.1 [facility] [place] [address] [place] [id number] [place] [address] 08340- 3832 Jun, [facility] [place] [address] [place] [id number] [place] [address] 54508- 9324 Jun, Empty sella syndrome E23.6 [facility] [place] [address] [place] [id number] [place] [address] 14303- 1562 May, [facility] [place] [address] [place] [id number] [place] [address] 24293- 3253 May, [facility] [place] [address] [place] [id number] [place] [address] 40425- 1608 May, Empty sella syndrome E23.6 [facility] [place] [address] [place] [id number] [place] [address] 42242- 1880 May, [facility] [place] [address] [place] [id number] [place] [address] 31617- 3312 24 May, 2016 [facility] [place] [address] [place] [id number] [place] [address] 79123- 9086 May, Primary insomnia F51.01 [facility] [place] [address] [place] [id number] [place] [address] 44316- 8749 22 May, 2016 [facility] [place] [address] 94712- 9598 May, Nausea R11.0 ; Other headache syndrome G44.89 and Malignant hypertension I10 [facility] [place] [address] 19531- 1400 07 May, 2016 Anxiety, generalized F41.1 [place] [address] [place] [id number] [place] [address] 04678- 0634 28 Apr, 2016 Major depressive disorder, recurrent episode, moderate F33.1 [place] [address] 74311- 6698 28 Apr, 2016 Moderate episode of recurrent major depressive disorder F33.1 [facility] [place] [address] [place] [id number] [place] [address] 74986- 8908 27 Apr, 2016 Other chronic postprocedural pain G89.28 [place] [address] [place] [id number] [place] [address] 75999- 3706 15 Apr, 2016 Major depressive disorder, recurrent episode, moderate F33.1 [place] [address] [place] [id number] [place] [address] 05672- 4445 07 Apr, 2016 Anxiety, generalized F41.1 [facility] [place] [address] [place] [id number] [place] [address] 37961- 7669 03 Apr, 2016 [facility] [place] [address] [place] [id number] [place] [address] 51399- 3914 Mar, Other chronic postprocedural pain G89.28 ; Status post craniotomy Z98.890 ; Encounter for drug screening Z02.83 and Hematuria R31.9 [place] [address] [place] [address] 51062- 3236 Mar, Major depressive disorder, recurrent episode, moderate F33.1 [place] [id number] [place] [address] 86146- 9257 Mar, [place] [address] [place] [id number] [place] [address] 38372- 5091 Mar, Anxiety, generalized F41.[address] 82175- 9210 10 Mar, 2016 Anxiety, generalized F41.1 and Pernicious anemia D51.[address] 49440- 4863 Mar, 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 and Status post craniotomy Z98.[address] 77187- 5570 Mar, Primary insomnia F51.01 [place] [id number] [place] [address] 70130- 0301 Feb, [place] [id number] [place] [address] 79140- 1128 Feb, Encounter to establish care Z76.89 ; Status post craniotomy Z98.890 ; 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 ; Hypokalemia E87.6 ; Essential hypertension I10 ; Other hyperlipidemia E78.4 ; Pernicious anemia D51.0 ; Other depression F32.89 and Chronic nausea R11.0 IMMUNIZATIONS No Known Immunizations SOCIAL HISTORY Never Assessed REASON FOR VISIT Refill request PLAN OF CARE VITAL SIGNS MEDICATIONS Medication Instructions Dosage Frequency Start Date End Date Duration Status Cyanocobalamin 1000 MCG/ML INJECT 1 ML INTRAMUSCULARLY ONCE MONTHLY May, 1 dose Active RESULTS No Results PROCEDURES No Known procedures INSTRUCTIONS MEDICATIONS ADMINISTERED No Known Medications MEDICAL (GENERAL) HISTORY Type Description Date Medical History HTN Medical History Hypokalemia since cranioplasty in may 2015 Medical History Insomnia longstanding Ambien works at [employer] Medical History Hypercholesterolemia Medical History prenicious anemia [...]
--- OUTSIDE RECORDS SUMMARY | 2017-11-05 12:20 | XMS REPORT ---
Author Author CORRALOSBALDO New Organization [facility] Address [address] [place] [address] Care Team Providers Care Log Roller Name Role Phone OSBALDO CORRAL Unavailable PROBLEMS Type Condition ICD9-CM Code CJZ07-HC Code Onset Dates Condition Status SNOMED Code Problem Primary insomnia F51.01 Active 1231803 Problem Major depressive disorder, recurrent episode, moderate F33.1 Active 858056309 Problem Anxiety, generalized F41.1 Active 61781753 Problem Vitamin B12 deficiency anemia due to intrinsic factor deficiency D51.0 Active 80881543 Problem Migraine without status migrainosus, not intractable, unspecified migraine type G43.909 Active 79844026 Problem Essential hypertension I10 Active 69751483 Problem Chronic pain due to trauma G89.21 Active 579133746 Problem Adjustment disorder with mixed anxiety and depressed mood F43.23 Active 30063214 Problem Seasonal allergic rhinitis, unspecified allergic rhinitis trigger J30.2 Active 520184849 Problem Empty sella syndrome E23.6 Active 896276572 Problem 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 [id number] [place] [address] 14691- 9390 Sep, [place] [id number] [place] [address] 17975- 8485 Sep, Otalgia of left ear H92.02 and Low pressure hydrocephalus G91.2 [place] [address] [place] [id number] [place] [address] 98832- 1687 Sep, [place] [address] 60969- 8443 Aug, Essential hypertension I10 ; 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 ; Empty sella syndrome E23.6 ; Pernicious anemia D51.0 ; Anxiety , generalized F41.1 ; Major depressive disorder, recurrent episode, moderate F33.1 ; Primary insomnia F51.01 ; Hypokalemia E87.6 and Chronic pain due to trauma G89.21 [place] [address] [place] [id number] [place] [address] 02814- 4803 Aug, [place] [address] 71720- 8857 Aug, Anxiety, generalized F41.1 and Osteoarthritis of spine with radiculopathy, lumbosacral region M47.27 [place] [address] 48465- 1187 Aug, [place] [address] [place] [id number] [place] [address] 88986- 6503 Aug, Primary insomnia F51.01 [place] [address] [place] [id number] [place] [address] 87097- 3388 July, Anxiety, generalized F41.1 and Osteoarthritis of spine with radiculopathy, lumbosacral region M47.27 [place] [address] [place] [id number] [place] [address] 91414- 2157 July, Essential hypertension I10 [place] [address] [place] [id number] [place] [address] 84702- 9411 July, Major depressive disorder, recurrent episode, moderate F33.1 [place] [address] [place] [id number] [place] [address] 36370- 1555 July, Primary insomnia F51.01 [place] [address] [place] [id number] [place] [address] 65115- 3240 Jun, Anxiety, generalized F41.1 and Osteoarthritis of spine with radiculopathy, lumbosacral region M47.27 [facility] [address] 46612 -6482 Jun, Acute frontal sinusitis, recurrence not specified J01.10 ; Sinus pressure J34.89 ; Post-nasal drip R09.82 and Sore throat J02.9 [place] [address] 99044- 7170 Jun, Primary insomnia F51.01 [place] [address] 62454- 7815 May, Anxiety, generalized F41.1 and Osteoarthritis of spine with radiculopathy, lumbosacral region M47.27 [place] [address] 36116- 7389 May, Essential hypertension I10 ; 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 ; Empty sella syndrome E23.6 ; Pernicious anemia D51.0 ; Major depressive disorder, recurrent episode, moderate F33.1 ; Primary insomnia F51.01 ; Other hyperlipidemia E78.4 and Anxiety, generalized F41.1 [place] [address] 60018- 9637 May, Vitamin B12 deficiency anemia due to intrinsic factor deficiency D51.0 and Pernicious anemia D51.0 [facility] [address] [place] [id number] [place] [address] 17520 -4419 May, Migraine without status migrainosus, not intractable, unspecified migraine type G43.909 [place] [address] 97020- 0763 May, [place] [address] 26460- 8661 May, [place] [address] 25972- 5387 May, Osteoarthritis of spine with radiculopathy, lumbosacral region M47.27 and Primary insomnia F51.01 [place] [address] 48249- 7672 May, Osteoarthritis of spine with radiculopathy, lumbosacral region M47.27 and Anxiety, generalized F41.1 [place] [address] 54167- 5792 May, [place] [address] 10129- 1624 Apr, [place] [address] 02643- 6986 Apr, [place] [address] 68662- 4499 Apr, Anxiety, generalized F41.1 ; Major depressive disorder, recurrent episode, moderate F33.1 ; Moderate episode of recurrent major depressive disorder F33.1 and Adjustment disorder with mixed anxiety and depressed mood F43.23 [place] [address] [place] [id number] [place] [address] 64118- 1227 Apr, Major depressive disorder, recurrent episode, moderate F33.1 ; Anxiety, generalized F41.1 ; Essential hypertension I10 ; Primary insomnia F51.01 and 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 [place] [address] 04792- 7188 09 Apr, 2017 Other chest pain R07.89 ; Sinus bradycardia R00.1 ; Essential hypertension I10 and Other hyperlipidemia E78.4 [place] [address] [place] [id number] [place] [address] 10801- 1166 08 Apr, 2017 Primary insomnia F51.01 [place] [address] 52528- 8584 Apr, [place] [address] 59630- 5709 Apr, Anxiety, generalized F41.1 [place] [address] 14916- 6267 Apr, Osteoarthritis of spine with radiculopathy, lumbosacral region M47.27 [place] [address] 31033- 3928 Mar, Intractable migraine without aura and without status migrainosus G43.019 and Dyshidrotic hand dermatitis L30.1 [facility] [address] 77732 -9349 Mar, Skin infection L08.9 [place] [address] 49943- 7218 Mar, [facility] [address] 06599 -3091 Mar, Skin lesion L98.9 [place] [address] 08821- 1882 Mar, Primary insomnia F51.01 and Anxiety, generalized F41.1 [place] [address] 37897- 7708 Mar, Osteoarthritis of spine with radiculopathy, lumbosacral region M47.27 [place] [address] 56065- 6277 Feb, [place] [address] 52023- 1043 Feb, [place] [address] 23485- 0073 Feb, Hypokalemia E87.6 [place] [address] 14676- 5380 Feb, Intractable migraine without aura and without status migrainosus G43.019 and Other chest pain R07.89 [place] [address] [place] [address]- 3805 Feb, [place] [address] 68012- 2458 14 Feb, 2017 Osteoarthritis of spine with radiculopathy, lumbosacral region M47.27 [place] [address] [place] [id number] [place] [address] 16241- 5488 13 Feb, 2017 Hypokalemia E87.6 [place] [address] 30403- 3182 08 Feb, 2017 [place] [address] 22003- 7351 Feb, Primary insomnia F51.01 and Anxiety, generalized F41.1 [facility] [place] [address] [place] [id number] [place] [address] 78792 -2614 Feb, Acute suppurative otitis media of both ears without spontaneous rupture of tympanic membranes, recurrence not specified H66.003 [place] [address] [place] [id number] [place] [address] 94130- 1493 Feb, [place] [address] 92615- 1298 Jan, Osteoarthritis of spine with radiculopathy, lumbosacral region M47.27 [place] [address] [place] [id number] [place] [address] 20161- 6394 Jan, Primary insomnia F51.01 and Anxiety, generalized F41.1 [place] [address] [place] [id number] [place] [address] 15640- 5244 02 Jan, 2017 Chronic pain due to trauma G89.21 ; Left otitis media with effusion H65.92 and Otalgia of left ear H92.02 [facility] [address] [place] [id number] [place] [address] 51246 -9570 Jan, Bilateral otitis media with effusion H65.93 [place] [address] 26987- 4387 Dec, [facility] [id number] [place] [address] 01003- 6491 Dec, Primary insomnia F51.01 and Anxiety, generalized F41.1 [facility] [address] [place] [id number] [place] [address] 66270- 6505 Nov, [place] [address] 88659- 8698 Nov, [facility] [address] 51962- 8674 Nov, Anxiety, generalized F41.1 [place] [address] 69616- 8169 Nov, Pernicious anemia D51.0 [place] [address] [place] [id number] [place] [address] 99751- 7937 Nov, Primary insomnia F51.01 [place] [address] 52928- 1367 Nov, Encounter for well woman exam with routine gynecological exam Z01.419 ; Screening breast examination Z12.31 and Otalgia of left ear H92.02 [place] [address] [place] [id number] [place] [address] 75749- 5686 Oct, [facility] [address] [place] [id number] [place] [address] 46316 -2224 Oct, Insect bite (nonvenomous) of right upper arm, initial encounter S40.861A [place] [address] [place] [id number] [place] [address] 52365- 4810 Oct, Pernicious anemia D51.0 [place] [address] 38375- 3043 Oct, Anxiety, generalized F41.1 and Pernicious anemia D51.0 [place] [address] 74931- 1900 Oct, Encounter to establish care with new doctor Z76.89 ; Moderate episode of recurrent major depressive disorder F33.1 ; Empty sella syndrome E23.6 ; Seasonal allergic rhinitis, unspecified allergic rhinitis trigger J30.2 ; Essential hypertension I10 and Osteoarthritis of spine with radiculopathy, lumbosacral region M47.27 [facility] [address] [place] [id number] [place] [address] 89952- 0823 Aug, [facility] [address] 59600- 7227 Aug, [place] [address] [place] [id number] [place] [address] 21958- 3044 Aug, Anxiety, generalized F41.1 [place] [address] 70150- 1341 Aug, [place] [address] 46991- 4283 Aug, Primary insomnia F51.01 ; Essential hypertension I10 ; Empty sella syndrome E23.6 and Chronic pain due to trauma G89.21 [place] [address] 46098- 8079 July, Primary insomnia F51.01 [facility] [address] [place] [id number] [place] [address] 01976 -8436 July, Seasonal allergic rhinitis, unspecified allergic rhinitis trigger J30.2 and Acute suppurative otitis media of right ear without spontaneous rupture of tympanic membrane, recurrence not specified H66.001 [facility] [address] [place] [id number] [place] [address] 84604 -2395 July, Acute suppurative otitis media of left ear without spontaneous rupture of tympanic membrane, recurrence not specified H66.002 [facility] [address] [place] [id number] [place] [address] 65340- 7227 July, [facility] [address] 85150- 6167 July, Anxiety, generalized F41.1 [facility] [address] [place] [id number] [place] [address] 66287- 5607 Jun, [facility] [address] [place] [id number] [place] [address] 92507- 9385 Jun, Primary insomnia F51.01 [facility] [address] [place] [id number] [place] [address] 55972- 9065 Jun, Empty sella syndrome E23.6 ; Primary insomnia F51.[address] [facility] [address] [place] [id number] [place] [address] 93122- 8815 Jun, [facility] [address] [place] [id number] [place] [address] 37201- 6506 Jun, [facility] [address] [place] [id number] [place] [address] 58565- 7337 Jun, Empty sella syndrome E23.6 [facility] [address] [place] [id number] [place] [address] 57830- 7500 Jun, Anxiety, generalized F41.1 [facility] [address] [place] [id number] [place] [address] 77243- 4615 Jun, [facility] [address] [place] [id number] [place] [address] 85932- 7568 Jun, Empty sella syndrome E23.6 [facility] [address] [place] [id number] [place] [address] 73561- 4938 May, [facility] [address] [place] [id number] [place] [address] 70060- 0610 May, [facility] [address] [place] [id number] [place] [address] 66914- 0137 May, Empty sella syndrome E23.6 [facility] [address] [place] [id number] [place] [address] 89963- 4962 May, [facility] [address] [place] [id number] [place] [address] 41316- 0363 24 May, 2016 [facility] [address] [place] [id number] [place] [address] 08385- 1976 May, Primary insomnia F51.01 [facility] [address] [place] [id number] [place] [address] 32234- 5149 22 May, 2016 [facility] [address] 88755- 0069 May, Nausea R11.0 ; Other headache syndrome G44.89 and Malignant hypertension I10 [facility] [address] 32794- 4703 07 May, 2016 Anxiety, generalized F41.1 [place] [address] [place] [id number] [place] [address] 54719- 3998 28 Apr, 2016 Major depressive disorder, recurrent episode, moderate F33.1 [place] [address] 82339- 2491 28 Apr, 2016 Moderate episode of recurrent major depressive disorder F33.1 [facility] [address] [place] [id number] [place] [address] 52681- 3374 27 Apr, 2016 Other chronic postprocedural pain G89.28 [place] [address] [place] [id number] [place] [address] 88004- 4437 15 Apr, 2016 Major depressive disorder, recurrent episode, moderate F33.1 [place] [address] [place] [id number] [place] [address] 78906- 8594 07 Apr, [address], [address] [facility] [address] [place] [id number] [place] [address] 45282- 2323 03 Apr, 2016 [facility] [address] [place] [id number] [place] [address] 69402- 6616 Mar, Other chronic postprocedural pain G89.28 ; Status post craniotomy Z98.890 ; Encounter for drug screening Z02.83 and Hematuria R31.9 [place] [address] [place] [id number] [place] [address] 69379- 5541 Mar, Major depressive disorder, recurrent episode, moderate F33.1 [place] [id number] [place] [address] 79971- 1709 Mar, [place] [address] 52727- 6616 Mar, Anxiety, generalized F41.[address] 44983- 9375 10 Mar, 2016 Anxiety, generalized F41.1 and Pernicious anemia D51.[address] 31170- 9122 Mar, 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 and Status post craniotomy Z98.[address] 50299- 3091 Mar, Primary insomnia F51.01 [place] [id number] [place] [address] 65819- 4234 Feb, [address] 92799- 5189 Feb, Encounter to establish care Z76.89 ; Status post craniotomy Z98.890 ; 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
--- OUTSIDE RECORDS SUMMARY | 2017-11-05 12:20 | XMS REPORT ---
Author Author CORRALOSBALDO New Organization [facility] Address [address] [place] [address] Care Team Providers Care Endoscopy Technican Name Role Phone OSBALDO CORRAL Unavailable PROBLEMS Type Condition ICD9-CM Code YOY91-NH Code Onset Dates Condition Status SNOMED Code Problem Primary insomnia F51.01 Active 2924432 Problem Major depressive disorder, recurrent episode, moderate F33.1 Active 553892445 Problem Anxiety, generalized F41.1 Active 92523706 Problem Vitamin B12 deficiency anemia due to intrinsic factor deficiency D51.0 Active 95654048 Problem Migraine without status migrainosus, not intractable, unspecified migraine type G43.909 Active 89438731 Problem Essential hypertension I10 Active 70646200 Problem Chronic pain due to trauma G89.21 Active 800111023 Problem Adjustment disorder with mixed anxiety and depressed mood F43.23 Active 00787245 Problem Seasonal allergic rhinitis, unspecified allergic rhinitis trigger J30.2 Active 413466494 Problem Empty sella syndrome E23.6 Active 583200732 Problem 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 Active 90096984 Problem Pernicious anemia D51.0 Active 84690361 Problem Hypokalemia E87.6 Active 20999654 Problem Other hyperlipidemia E78.4 Active 65259760 ALLERGIES No Information ENCOUNTERS Encounter Location Date Diagnosis [place] [id number] [place] [address] 75921- 1425 Sep, Anxiety, generalized F41.1 and Chronic pain due to trauma G89.21 [facility] [id number] [place] [address] 28915- 2123 Sep, [place] [id number] [place] [address] 68034- 4419 Sep, Otalgia of left ear H92.02 and Low pressure hydrocephalus G91.2 [place] [address] [place] [id number] [place] [address] 50845- 0883 Sep, [place] [address] 65182- 6823 Aug, Essential hypertension I10 ; 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 ; Empty sella syndrome E23.6 ; Pernicious anemia D51.0 ; Anxiety , generalized F41.1 ; Major depressive disorder, recurrent episode, moderate F33.1 ; Primary insomnia F51.01 ; Hypokalemia E87.6 and Chronic pain due to trauma G89.21 [place] [address] [place] [id number] [place] [address] 77750- 8211 Aug, [place] [address] 33991- 0365 Aug, Anxiety, generalized F41.1 and Osteoarthritis of spine with radiculopathy, lumbosacral region M47.27 [place] [address] 35046- 3757 Aug, [place] [address] [place] [id number] [place] [address] 69796- 7248 Aug, Primary insomnia F51.01 [place] [address] [place] [id number] [place] [address] 80723- 8428 July, Anxiety, generalized F41.1 and Osteoarthritis of spine with radiculopathy, lumbosacral region M47.27 [place] [address] [place] [id number] [place] [address] 94634- 3092 July, Essential hypertension I10 [place] [address] [place] [id number] [place] [address] 63290- 6805 July, Major depressive disorder, recurrent episode, moderate F33.1 [place] [address] [place] [id number] [place] [address] 20647- 0540 July, Primary insomnia F51.01 [place] [address] [place] [id number] [place] [address] 22887- 2338 Jun, Anxiety, generalized F41.1 and Osteoarthritis of spine with radiculopathy, lumbosacral region M47.27 [facility] [address] 52694 -4836 Jun, Acute frontal sinusitis, recurrence not specified J01.10 ; Sinus pressure J34.89 ; Post-nasal drip R09.82 and Sore throat J02.9 [place] [address] 75466- 2342 Jun, Primary insomnia F51.01 [place] [address] 03753- 7947 May, Anxiety, generalized F41.1 and Osteoarthritis of spine with radiculopathy, lumbosacral region M47.27 [place] [address] 23638- 6297 May, Essential hypertension I10 ; 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 ; Empty sella syndrome E23.6 ; Pernicious anemia D51.0 ; Major depressive disorder, recurrent episode, moderate F33.1 ; Primary insomnia F51.01 ; Other hyperlipidemia E78.4 and Anxiety, generalized F41.1 [place] [address] 00040- 5387 May, Vitamin B12 deficiency anemia due to intrinsic factor deficiency D51.0 and Pernicious anemia D51.0 [facility] [address] [place] [id number] [place] [address] 08259 -9561 May, Migraine without status migrainosus, not intractable, unspecified migraine type G43.909 [place] [address] 29945- 9051 May, [place] [address] 48784- 2806 May, [place] [address] 17193- 2459 May, Osteoarthritis of spine with radiculopathy, lumbosacral region M47.27 and Primary insomnia F51.01 [place] [address] 23656- 7586 May, Osteoarthritis of spine with radiculopathy, lumbosacral region M47.27 and Anxiety, generalized F41.1 [place] [address] 25370- 8592 May, [place] [address] 77579- 1701 Apr, [place] [address] 25594- 4068 Apr, [place] [address] 57222- 9424 Apr, Anxiety, generalized F41.1 ; Major depressive disorder, recurrent episode, moderate F33.1 ; Moderate episode of recurrent major depressive disorder F33.1 and Adjustment disorder with mixed anxiety and depressed mood F43.23 [place] [address] [place] [id number] [place] [address] 12770- 4039 Apr, Major depressive disorder, recurrent episode, moderate F33.1 ; Anxiety, generalized F41.1 ; Essential hypertension I10 ; Primary insomnia F51.01 and 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 [place] [address] 77670- 0146 09 Apr, 2017 Other chest pain R07.89 ; Sinus bradycardia R00.1 ; Essential hypertension I10 and Other hyperlipidemia E78.4 [place] [address] [place] [id number] [place] [address] 03467- 5732 08 Apr, 2017 Primary insomnia F51.01 [place] [address] 60056- 0262 Apr, [place] [address] 52747- 2222 Apr, Anxiety, generalized F41.1 [place] [address] 12048- 7650 Apr, Osteoarthritis of spine with radiculopathy, lumbosacral region M47.27 [place] [address] 71973- 0180 Mar, Intractable migraine without aura and without status migrainosus G43.019 and Dyshidrotic hand dermatitis L30.1 [facility] [address] 52980 -9970 Mar, Skin infection L08.9 [place] [address] 02535- 1115 Mar, [facility] [address] 60230 -7138 Mar, Skin lesion L98.9 [place] [address] 47515- 5854 Mar, Primary insomnia F51.01 and Anxiety, generalized F41.1 [place] [address] 67261- 0117 Mar, Osteoarthritis of spine with radiculopathy, lumbosacral region M47.27 [place] [address] 06920- 7819 Feb, [place] [address] 79185- 2922 Feb, [place] [address] 94693- 5564 Feb, Hypokalemia E87.6 [place] [address] 71411- 6063 Feb, Intractable migraine without aura and without status migrainosus G43.019 and Other chest pain R07.89 [place] [address] [place] [address]- 4117 Feb, [place] [address] 85152- 5325 14 Feb, 2017 Osteoarthritis of spine with radiculopathy, lumbosacral region M47.27 [place] [address] [place] [id number] [place] [address] 21746- 9067 13 Feb, 2017 Hypokalemia E87.6 [place] [address] 75586- 5128 08 Feb, 2017 [place] [address] 30935- 3589 Feb, Primary insomnia F51.01 and Anxiety, generalized F41.1 [facility] [place] [address] [place] [id number] [place] [address] 65039 -0352 Feb, Acute suppurative otitis media of both ears without spontaneous rupture of tympanic membranes, recurrence not specified H66.003 [place] [address] [place] [id number] [place] [address] 51532- 0789 Feb, [place] [address] 02598- 5750 Jan, Osteoarthritis of spine with radiculopathy, lumbosacral region M47.27 [place] [address] [place] [id number] [place] [address] 98849- 5740 Jan, Primary insomnia F51.01 and Anxiety, generalized F41.1 [place] [address] [place] [id number] [place] [address] 34859- 5985 02 Jan, 2017 Chronic pain due to trauma G89.21 ; Left otitis media with effusion H65.92 and Otalgia of left ear H92.02 [facility] [address] [place] [id number] [place] [address] 76520 -4170 Jan, Bilateral otitis media with effusion H65.93 [place] [address] 72234- 4442 Dec, [facility] [address] [place] [address] 42609- 0034 Dec, Primary insomnia F51.01 and Anxiety, generalized F41.1 [facility] [address] [place] [id number] [place] [address] 63672- 8602 Nov, [place] [address] 47786- 9455 Nov, [facility] [address] 44686- 3255 Nov, Anxiety, generalized F41.1 [place] [address] 25405- 0262 Nov, Pernicious anemia D51.0 [place] [address] [place] [id number] [place] [address] 80446- 7514 Nov, Primary insomnia F51.01 [place] [address] 30627- 0975 Nov, Encounter for well woman exam with routine gynecological exam Z01.419 ; Screening breast examination Z12.31 and Otalgia of left ear H92.02 [place] [address] [place] [id number] [place] [address] 72633- 1740 Oct, [facility] [address] [place] [id number] [place] [address] 36777 -9712 Oct, Insect bite (nonvenomous) of right upper arm, initial encounter S40.861A [place] [address] [place] [id number] [place] [address] 63531- 3246 Oct, Pernicious anemia D51.0 [place] [address] 50833- 0729 Oct, Anxiety, generalized F41.1 and Pernicious anemia D51.0 [place] [address] 42917- 0472 Oct, Encounter to establish care with new doctor Z76.89 ; Moderate episode of recurrent major depressive disorder F33.1 ; Empty sella syndrome E23.6 ; Seasonal allergic rhinitis, unspecified allergic rhinitis trigger J30.2 ; Essential hypertension I10 and Osteoarthritis of spine with radiculopathy, lumbosacral region M47.27 [facility] [address] [place] [id number] [place] [address] 11720- 0517 Aug, [facility] [address] 58229- 1957 Aug, [place] [address] [place] [id number] [place] [address] 69508- 8144 Aug, Anxiety, generalized F41.1 [place] [address] 20487- 8070 Aug, [place] [address] 93278- 8289 Aug, Primary insomnia F51.01 ; Essential hypertension I10 ; Empty sella syndrome E23.6 and Chronic pain due to trauma G89.21 [place] [address] 99361- 3672 July, Primary insomnia F51.01 [facility] [address] [place] [id number] [place] [address] 01696 -3733 July, Seasonal allergic rhinitis, unspecified allergic rhinitis trigger J30.2 and Acute suppurative otitis media of right ear without spontaneous rupture of tympanic membrane, recurrence not specified H66.001 [facility] [address] [place] [id number] [place] [address] 97688 -8597 July, Acute suppurative otitis media of left ear without spontaneous rupture of tympanic membrane, recurrence not specified H66.002 [facility] [address] [place] [id number] [place] [address] 11920- 4404 July, [facility] [address] 35082- 1098 July, Anxiety, generalized F41.1 [facility] [address] [place] [id number] [place] [address] 36990- 9761 Jun, [facility] [address] [place] [id number] [place] [address] 55316- 7247 Jun, Primary insomnia F51.01 [facility] [address] [place] [id number] [place] [address] 70169- 4496 Jun, Empty sella syndrome E23.6 ; Primary insomnia F51.01 and Hypokalemia E87.6 [facility] [address] [place] [id number] [place] [address] 58076- 2222 Jun, [facility] [address] [place] [id number] [place] [address] 09635- 0842 Jun, [facility] [address] [place] [id number] [place] [address] 29008- 3104 Jun, Empty sella syndrome E23.6 [facility] [address] [place] [id number] [place] [address] 92582- 2066 Jun, Anxiety, generalized F41.1 [facility] [address] [place] [id number] [place] [address] 87673- 8789 Jun, [facility] [address] [place] [id number] [place] [address] 98636- 9943 Jun, Empty sella syndrome E23.6 [facility] [address] [place] [id number] [place] [address] 29554- 6695 May, [facility] [address] [place] [id number] [place] [address] 12448- 8859 May, [facility] [address] [place] [id number] [place] [address] 55342- 8383 May, Empty sella syndrome E23.6 [facility] [address] [place] [id number] [place] [address] 57349- 5910 May, [facility] [address] [place] [id number] [place] [address] 07810- 0683 24 May, 2016 [facility] [address] [place] [id number] [place] [address] 31400- 8929 May, Primary insomnia F51.01 [facility] [address] [place] [id number] [place] [address] 03558- 1971 22 May, 2016 [facility] [address] 02016- 6954 May, Nausea R11.0 ; Other headache syndrome G44.89 and Malignant hypertension I10 [facility] [address] 57650- 7990 07 May, 2016 Anxiety, generalized F41.1 [place] [address] [place] [id number] [place] [address] 80420- 9115 28 Apr, 2016 Major depressive disorder, recurrent episode, moderate F33.1 [place] [address] 27722- 8615 28 Apr, 2016 Moderate episode of recurrent major depressive disorder F33.1 [facility] [address] [place] [id number] [place] [address] 38860- 1332 27 Apr, 2016 Other chronic postprocedural pain G89.28 [place] [address] [place] [id number] [place] [address] 36999- 3661 15 Apr, 2016 Major depressive disorder, recurrent episode, moderate F33.1 [place] [address] [place] [id number] [place] [address] 29763- 0597 07 Apr, 2016 Anxiety, generalized F41.1 [facility] [address] [place] [id number] [place] [address] 81388- 8537 03 Apr, 2016 [facility] [address] [place] [id number] [place] [address] 26631- 4960 Mar, Other chronic postprocedural pain G89.28 ; Status post craniotomy Z98.890 ; Encounter for drug screening Z02.83 and Hematuria R31.9 [place] [address] [place] [address] 23701- 9991 Mar, Major depressive disorder, recurrent episode, moderate F33.1 [place] [id number] [place] [address] 50660- 1621 Mar, [address] 22933- 0476 Mar, Anxiety, generalized F41.[address] 45736- 8630 10 Mar, 2016 Anxiety, generalized F41.1 and Pernicious anemia D51.[address] 16246- 2633 Mar, 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 and Status post craniotomy Z98.[address] 05692- 8258 Mar, Primary insomnia F51.01 [place] [id number] [place] [address] 97021- 4449 Feb, [place] [id number] [place] [address] 15047- 3352 Feb, Encounter to establish care Z76.89 ; Status post craniotomy Z98.890 ; 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 ; Hypokalemia E87.6 ; Essential hypertension I10 ; Other hyperlipidemia E78.4 ; Pernicious anemia D51.0 ; Other depression F32.89 and Chronic nausea R11.0 IMMUNIZATIONS No Known Immunizations SOCIAL HISTORY Never Assessed REASON FOR VISIT Medication question PLAN OF CARE VITAL SIGNS MEDICATIONS Unknown Medications RESULTS No Results PROCEDURES No Known procedures INSTRUCTIONS MEDICATIONS ADMINISTERED No Known Medications MEDICAL (GENERAL) HISTORY Type Description Date Medical History HTN Medical History Hypokalemia since cranioplasty in may 2015 Medical History Insomnia longstanding Ambien works at [employer] Medical History Hypercholesterolemia Medical History prenicious anemia [...] Hospitalization History surgery only Hospitalization History . [facility] 02/2017
--- OUTSIDE RECORDS SUMMARY | 2017-11-05 12:21 | XMS REPORT ---
Author Author CORRALOSBALDO New Organization [facility] Address [address] [place] [address] Care Team Providers Care Credit Support Counselor Name Role Phone OSBALDO CORRAL Unavailable PROBLEMS Type Condition ICD9-CM Code FRS86-PA Code Onset Dates Condition Status SNOMED Code Problem Primary insomnia F51.01 Active 3814538 Problem Major depressive disorder, recurrent episode, moderate F33.1 Active 139371197 Problem Anxiety, generalized F41.1 Active 22741418 Problem Vitamin B12 deficiency anemia due to intrinsic factor deficiency D51.0 Active 37743579 Problem Migraine without status migrainosus, not intractable, unspecified migraine type G43.909 Active 51202527 Problem Essential hypertension I10 Active 50468652 Problem Chronic pain due to trauma G89.21 Active 228651380 Problem Adjustment disorder with mixed anxiety and depressed mood F43.23 Active 78124370 Problem Seasonal allergic rhinitis, unspecified allergic rhinitis trigger J30.2 Active 304043199 Problem Empty sella syndrome E23.6 Active 416407330 Problem 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 Active 53687045 Problem Pernicious anemia D51.0 Active 73285581 Problem Hypokalemia E87.6 Active 51019304 Problem Other hyperlipidemia E78.4 Active 86542150 ALLERGIES No Information ENCOUNTERS Encounter Location Date Diagnosis [facility] [id number] [address] Sep, [facility] [id number] [address] Sep, [facility] [id number] [address] Aug, Essential hypertension I10 ; 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 ; Empty sella syndrome E23.6 ; Pernicious anemia D51.0 ; Anxiety , generalized F41.1 ; Major depressive disorder, recurrent episode, moderate F33.1 ; Primary insomnia F51.01 ; Hypokalemia E87.6 and Chronic pain due to trauma G89.21 [facility] [id number] [place] [address] 90169- 5793 Aug, [facility] [id number] [place] [address] 38533- 4388 18 Aug, 2017 Anxiety, generalized F41.1 and Osteoarthritis of spine with radiculopathy, lumbosacral region M47.27 [facility] [id number] [place] [address] 27509- 7870 Aug, [facility] [address] [address]- [address] Aug, Primary insomnia F51.01 [facility] [address] [address]- 7510 July, Anxiety, generalized F41.1 and Osteoarthritis of spine with radiculopathy, lumbosacral region M47.27 [facility] [id number] [place] [address] 32576- 0517 July, Essential hypertension I10 [facility] [id number] [place] [address] 04328- 9557 July, Major depressive disorder, recurrent episode, moderate F33.1 [facility] [id number] [place] [address] 04233- 2576 July, Primary insomnia F51.01 [facility] [id number] [place] [address] 52067- 2933 Jun, Anxiety, generalized F41.1 and Osteoarthritis of spine with radiculopathy, lumbosacral region M47.27 [facility] [id number] [place] [address] 82924 -3853 Jun, Acute frontal sinusitis, recurrence not specified J01.10 ; Sinus pressure J34.89 ; Post-nasal drip R09.82 and Sore throat J02.9 [place] [id number] [place] [address] 16445- 0937 Jun, Primary insomnia F51.01 [facility] [id number] [place] [address] May, Anxiety, generalized F41.1 and Osteoarthritis of spine with radiculopathy, lumbosacral region M47.27 [facility] [address] [address]- 5996 May, Essential hypertension I10 ; 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 ; Empty sella syndrome E23.6 ; Pernicious anemia D51.0 ; Major depressive disorder, recurrent episode, moderate F33.1 ; Primary insomnia F51.01 ; Other hyperlipidemia E78.4 and Anxiety, generalized F41.1 [place] [id number] [place] [address] 17823- 5784 May, Vitamin B12 deficiency anemia due to intrinsic factor deficiency D51.0 and Pernicious anemia D51.0 [facility] [id number] [place] [address] 57905 -9200 May, Migraine without status migrainosus, not intractable, unspecified migraine type G43.909 [facility] [id number] [place] [address] 74761- 9816 May, [facility] [id number] [place] [address] 70903- 1893 May, [place] [id number] [place] [address] 94226- 2156 09 May, 2017 Osteoarthritis of spine with radiculopathy, lumbosacral region M47.27 and Primary insomnia F51.01 [facility] [id number] [place] [address] 37650- 5830 02 May, 2017 Osteoarthritis of spine with radiculopathy, lumbosacral region M47.27 and Anxiety, generalized F41.1 [facility] [address] [place] [address]81 May, [place] [id number] [place] [address] 89619- 0273 Apr, [place] [id number] [place] [address] 90326- 7050 Apr, [place] [address] 54987- 1366 Apr, Anxiety, generalized F41.1 ; Major depressive disorder, recurrent episode, moderate F33.1 ; Moderate episode of recurrent major depressive disorder F33.1 and Adjustment disorder with mixed anxiety and depressed mood F43.23 [place] [address] 56245- 8447 Apr, Major depressive disorder, recurrent episode, moderate F33.1 ; Anxiety, generalized F41.1 ; Essential hypertension I10 ; Primary insomnia F51.01 and 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 [place] [id number] [place] [address] 14481- 2831 09 Apr, 2017 Other chest pain R07.89 ; Sinus bradycardia R00.1 ; Essential hypertension I10 and Other hyperlipidemia E78.4 [place] [id number] [place] [address] 99677- 4718 08 Apr, 2017 Primary insomnia F51.01 [place] [address] 51867- 5175 Apr, [place] [address] 29238- 4520 Apr, Anxiety, generalized F41.1 [place] [address] 80448- 9820 Apr, Osteoarthritis of spine with radiculopathy, lumbosacral region M47.27 [place] [id number] [place] [address] 85922- 8003 Mar, Intractable migraine without aura and without status migrainosus G43.019 and Dyshidrotic hand dermatitis L30.1 [facility] [id number] [place] [address] 14774 -7146 Mar, Skin infection L08.9 [place] [id number] [place] [address] 12163- 9038 11 Mar, 2017 [facility] [address] 11750 -4392 Mar, Skin lesion L98.9 [place] [address] 44030- 1239 08 Mar, 2017 Primary insomnia F51.01 and Anxiety, generalized F41.1 [place] [address] 80656- 4332 Mar, Osteoarthritis of spine with radiculopathy, lumbosacral region M47.27 [place] [address] 82189- 3319 Feb, [place] [id number] [place] [address] 20434- 7914 Feb, [place] [address] 32680- 8034 Feb, Hypokalemia E87.6 [place] [id number] [place] [address] 14981- 9379 Feb, Intractable migraine without aura and without status migrainosus G43.019 and Other chest pain R07.89 [place] [id number] [place] [address] 71016- 8177 Feb, [place] [address] 89759- 0727 Feb, Osteoarthritis of spine with radiculopathy, lumbosacral region M47.27 [place] [address] 61481- 4385 Feb, Hypokalemia E87.6 [facility] [id number] [place] [address] 78791- 0582 Feb, [facility] [address] 52805- 6681 Feb, Primary insomnia F51.01 and Anxiety, generalized F41.1 [facility] [address] 61249 -[address]00 Feb, Acute suppurative otitis media of both ears without spontaneous rupture of tympanic membranes, recurrence not specified H66.003 [place] [address] 54547- 3511 Feb, [place] [address] 75111- 1834 Jan, Osteoarthritis of spine with radiculopathy, lumbosacral region M47.27 [place] [address] 59176- 7127 Jan, Primary insomnia F51.01 and Anxiety, generalized F41.1 [place] [address] 52200- 5984 Jan, Chronic pain due to trauma G89.21 ; Left otitis media with effusion H65.92 and Otalgia of left ear H92.02 [facility] [id number] [place] [address] 85059 -8727 Jan, Bilateral otitis media with effusion H65.93 [facility] [id number] [place] [address] 87339- 2459 Dec, [place] [address] 41223- 6272 Dec, Primary insomnia F51.01 and Anxiety, generalized F41.1 [facility] [address] 62773- 8250 Nov, [facility] [address] [place] [address]- 1157 15 Nov, 2016 [facility] [address] 99391- 5917 13 Nov, 2016 Anxiety, generalized F41.1 [place] [address] 81588- 8126 12 Nov, 2016 Pernicious anemia D51.0 [place] [address] 85306- 7352 11 Nov, 2016 Primary insomnia F51.01 [place] [address] 64376- 2034 01 Nov, 2016 Encounter for well woman exam with routine gynecological exam Z01.419 ; Screening breast examination Z12.31 and Otalgia of left ear H92.02 [place] [address] 23373- 5160 15 Oct, 2016 [facility] [address] 83335 -9821 14 Oct, 2016 Insect bite (nonvenomous) of right upper arm, initial encounter S40.861A [place] [address] 67336- 2066 Oct, Pernicious anemia D51.0 [place] [address] 15487- 4657 07 Oct, 2016 Anxiety, generalized F41.1 and Pernicious anemia D51.0 [place] [address] 68942- 9650 Oct, Encounter to establish care with new doctor Z76.89 ; Moderate episode of recurrent major depressive disorder F33.1 ; Empty sella syndrome E23.6 ; Seasonal allergic rhinitis, unspecified allergic rhinitis trigger J30.2 ; Essential hypertension I10 and Osteoarthritis of spine with radiculopathy, lumbosacral region M47.27 [place] [address] 10244- 5443 Aug, [facility] [id number] [place] [address] 35371- 0455 Aug, [place] [address] 05294- 6284 Aug, Anxiety, generalized F41.1 [place] [address] 62835- 9760 Aug, [place] [address] 17567- 4309 Aug, Primary insomnia F51.01 ; Essential hypertension I10 ; Empty sella syndrome E23.6 and Chronic pain due to trauma G89.21 [place] [address] 72402- 2198 July, Primary insomnia F51.01 [facility] [address] 60826 -3456 July, Seasonal allergic rhinitis, unspecified allergic rhinitis trigger J30.2 and Acute suppurative otitis media of right ear without spontaneous rupture of tympanic membrane, recurrence not specified H66.001 [facility] [place] [id number] [place] [address] 41839 -2206 July, Acute suppurative otitis media of left ear without spontaneous rupture of tympanic membrane, recurrence not specified H66.002 [place] [id number] [place] [address] 73724- 4812 July, [place] [id number] [place] [address] 27760- 3523 July, Anxiety, generalized F41.1 [place] [address] 33356- 0384 Jun, [place] [id number] [place] [address] 49914- 6535 Jun, Primary insomnia F51.01 [facility] [address] 27610- 8951 Jun, Empty sella syndrome E23.6 ; Primary insomnia F51.01 and Hypokalemia E87.6 [facility] [id number] [place] [address] 88295- 1774 Jun, [facility] [id number] [place] [address] 62534- 5622 Jun, [facility] [id number] [place] [address] 81973- 9280 Jun, Empty sella syndrome E23.6 [facility] [id number] [place] [address] 75240- 3909 Jun, Anxiety, generalized F41.1 [facility] [id number] [place] [address] 65161- 6608 Jun, [facility] [id number] [place] [address] 35735- 8771 Jun, Empty sella syndrome E23.6 [facility] [id number] [place] [address] 96100- 1107 May, [facility] [id number] [place] [address] 93275- 1578 May, [facility] [address] [place] [address] 87199- 8382 May, Empty sella syndrome E23.6 [facility] [id number] [place] [address] 48206- 0714 May, [facility] [id number] [place] [address] 74225- 1439 May, [facility] [id number] [place] [address] 66995- 9005 May, Primary insomnia F51.01 [facility] [address] [place] [address] 51271- 3109 May, [facility] [address] [place] [address]- 0564 20 May, 2016 Nausea R11.0 ; Other headache syndrome G44.89 and Malignant hypertension I10 [facility] [id number] [place] [address] 65322- 6276 07 May, 2016 Anxiety, generalized F41.1 [facility] [id number] [place] [address] 95662- 9313 28 Apr, 2016 Major depressive disorder, recurrent episode, moderate F33.1 [facility] [id number] [place] [address] 48388- 4575 28 Apr, 2016 Moderate episode of recurrent major depressive disorder F33.1 [facility] [id number] [place] [address] 79404- 5899 27 Apr, 2016 Other chronic postprocedural pain G89.28 [facility] [address] 20799- 7745 15 Apr, 2016 Major depressive disorder, recurrent episode, moderate F33.1 [facility] [id number] [place] [address] 02310- 1096 07 Apr, 2016 Anxiety, generalized F41.1 [facility] [id number] [place] [address] 67686- 5429 03 Apr, 2016 [facility] [id number] [place] [address] 52621- 3737 Mar, Other chronic postprocedural pain G89.28 ; Status post craniotomy Z98.890 ; Encounter for drug screening Z02.83 and Hematuria R31.9 [facility] [id number] [place] [address] 26283- 3477 Mar, Major depressive disorder, recurrent episode, moderate F33.1 [facility] [id number] [place] [address] 17771- 7904 Mar, [facility] [id number] [place] [address] 51348- 8036 Mar, Anxiety, generalized F41.1 [place] [address], [place] [address]- 5179 Mar, Anxiety, generalized F41.1 and Pernicious anemia D51.0 [place] [address] [address]- 7594 Mar, 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 and Status post craniotomy Z98.890 [place] [id number] [place] [address] 92554- 9245 Mar, Primary insomnia F51.01 [place] [id number] [place] [address] 14837- 9218 Feb, [place] [id number] [place] [address] 03848- 8567 Feb, Encounter to establish care Z76.89 ; Status post craniotomy Z98.890 ; 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 ; Hypokalemia E87.6 ; Essential hypertension I10 ; Other hyperlipidemia E78.4 ; Pernicious anemia D51.0 ; Other depression F32.89 and Chronic nausea R11.0 IMMUNIZATIONS No Known Immunizations SOCIAL HISTORY Never Assessed REASON FOR VISIT Medication refill request PLAN OF CARE VITAL SIGNS MEDICATIONS Unknown Medications RESULTS No Results PROCEDURES No Known procedures INSTRUCTIONS MEDICATIONS ADMINISTERED No Known Medications MEDICAL (GENERAL) HISTORY Type Description Date Medical History HTN Medical History Hypokalemia since cranioplasty in may 2015 Medical History Insomnia longstanding Ambien works at [employer] Medical History Hypercholesterolemia Medical History prenicious anemia [...] Hospitalization History surgery only Hospitalization History . [place] [facility] 02/2017
--- OUTSIDE RECORDS SUMMARY | 2017-11-05 12:21 | XMS REPORT ---
Author Author CORRALOSBALDO New Organization [facility] Address [address] [place] [address] Care Team Providers Care Tare Weigher Name Role Phone OSBALDO CORRAL Unavailable PROBLEMS Type Condition ICD9-CM Code OQQ99-JB Code Onset Dates Condition Status SNOMED Code Problem Primary insomnia F51.01 Active 9258233 Problem Major depressive disorder, recurrent episode, moderate F33.1 Active 477783464 Problem Anxiety, generalized F41.1 Active 36588829 Problem Vitamin B12 deficiency anemia due to intrinsic factor deficiency D51.0 Active 78203191 Problem Migraine without status migrainosus, not intractable, unspecified migraine type G43.909 Active 20677413 Problem Essential hypertension I10 Active 26184740 Problem Chronic pain due to trauma G89.21 Active 074112427 Problem Adjustment disorder with mixed anxiety and depressed mood F43.23 Active 98929973 Problem Seasonal allergic rhinitis, unspecified allergic rhinitis trigger J30.2 Active 602593490 Problem Empty sella syndrome E23.6 Active 262763736 Problem 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 Active 51308627 Problem Pernicious anemia D51.0 Active 02113389 Problem Hypokalemia E87.6 Active 87117184 Problem Other hyperlipidemia E78.4 Active 27116142 ALLERGIES No Information ENCOUNTERS Encounter Location Date Diagnosis [place] [id number] [place] [address] 67103- 9473 Sep, Anxiety, generalized F41.1 and Chronic pain due to trauma G89.21 [facility] [id number] [place] [address] 90694- 8776 Sep, [place] [id number] [place] [address] 27797- 2074 Sep, Otalgia of left ear H92.02 and Low pressure hydrocephalus G91.2 [place] [address] [place] [id number] [place] [address] 68002- 3303 Sep, [place] [address] 63766- 2730 Aug, Essential hypertension I10 ; 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 ; Empty sella syndrome E23.6 ; Pernicious anemia D51.0 ; Anxiety , generalized F41.1 ; Major depressive disorder, recurrent episode, moderate F33.1 ; Primary insomnia F51.01 ; Hypokalemia E87.6 and Chronic pain due to trauma G89.21 [place] [address] [place] [id number] [place] [address] 03422- 0709 Aug, [place] [address] 50561- 2076 Aug, Anxiety, generalized F41.1 and Osteoarthritis of spine with radiculopathy, lumbosacral region M47.27 [place] [address] 52998- 8898 Aug, [place] [address] [place] [id number] [place] [address] 63782- 5375 Aug, Primary insomnia F51.01 [place] [address] [place] [id number] [place] [address] 18169- 8212 July, Anxiety, generalized F41.1 and Osteoarthritis of spine with radiculopathy, lumbosacral region M47.27 [place] [address] [place] [id number] [place] [address] 79123- 8135 July, Essential hypertension I10 [place] [address] [place] [id number] [place] [address] 72076- 4957 July, Major depressive disorder, recurrent episode, moderate F33.1 [place] [address] [place] [id number] [place] [address] 20538- 1562 July, Primary insomnia F51.01 [place] [address] [place] [id number] [place] [address] 36536- 2735 Jun, Anxiety, generalized F41.1 and Osteoarthritis of spine with radiculopathy, lumbosacral region M47.27 [facility] [address] 09[address] -4660 Jun, Acute frontal sinusitis, recurrence not specified J01.10 ; Sinus pressure J34.89 ; Post-nasal drip R09.82 and Sore throat J02.9 [place] [address] 08915- 5354 Jun, Primary insomnia F51.01 [place] [address] 27215- 0954 May, Anxiety, generalized F41.1 and Osteoarthritis of spine with radiculopathy, lumbosacral region M47.27 [place] [address] 67559- 3545 May, Essential hypertension I10 ; 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 ; Empty sella syndrome E23.6 ; Pernicious anemia D51.0 ; Major depressive disorder, recurrent episode, moderate F33.1 ; Primary insomnia F51.01 ; Other hyperlipidemia E78.4 and Anxiety, generalized F41.1 [place] [address] 88424- 8851 May, Vitamin B12 deficiency anemia due to intrinsic factor deficiency D51.0 and Pernicious anemia D51.0 [facility] [address] [place] [id number] [place] [address] 04174 -6249 May, Migraine without status migrainosus, not intractable, unspecified migraine type G43.909 [place] [address] 43704- 5454 May, [place] [address] 22437- 8677 May, [place] [address] 72725- 0383 May, Osteoarthritis of spine with radiculopathy, lumbosacral region M47.27 and Primary insomnia F51.01 [place] [address] 87048- 4801 May, Osteoarthritis of spine with radiculopathy, lumbosacral region M47.27 and Anxiety, generalized F41.1 [place] [address] 94257- 6816 May, [place] [address] 06863- 1313 Apr, [place] [address] 75721- 9407 Apr, [place] [address] 00152- 3670 Apr, Anxiety, generalized F41.1 ; Major depressive disorder, recurrent episode, moderate F33.1 ; Moderate episode of recurrent major depressive disorder F33.1 and Adjustment disorder with mixed anxiety and depressed mood F43.23 [place] [address] [place] [id number] [place] [address] 17527- 3564 Apr, Major depressive disorder, recurrent episode, moderate F33.1 ; Anxiety, generalized F41.1 ; Essential hypertension I10 ; Primary insomnia F51.01 and 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 [place] [address] 30154- 7337 09 Apr, 2017 Other chest pain R07.89 ; Sinus bradycardia R00.1 ; Essential hypertension I10 and Other hyperlipidemia E78.4 [place] [address] [place] [id number] [place] [address] 77110- 1100 08 Apr, 2017 Primary insomnia F51.01 [place] [address] 22104- 3381 Apr, [place] [address] 33325- 4869 Apr, Anxiety, generalized F41.1 [place] [address] 69322- 2379 Apr, Osteoarthritis of spine with radiculopathy, lumbosacral region M47.27 [place] [address] 62807- 4043 Mar, Intractable migraine without aura and without status migrainosus G43.019 and Dyshidrotic hand dermatitis L30.1 [facility] [address] 92483 -2008 Mar, Skin infection L08.9 [place] [address] 22982- 4707 Mar, [facility] [address] 78711 -3856 Mar, Skin lesion L98.9 [place] [address] 98958- 6455 Mar, Primary insomnia F51.01 and Anxiety, generalized F41.1 [place] [address] 00104- 7213 Mar, Osteoarthritis of spine with radiculopathy, lumbosacral region M47.27 [place] [address] 96637- 9867 Feb, [place] [address] 00876- 0340 Feb, [place] [address] 22612- 4709 Feb, Hypokalemia E87.6 [place] [address] 87485- 4653 Feb, Intractable migraine without aura and without status migrainosus G43.019 and Other chest pain R07.89 [place] [address] [place] [address]- 8360 Feb, [place] [address] 02912- 2567 14 Feb, 2017 Osteoarthritis of spine with radiculopathy, lumbosacral region M47.27 [place] [address] [place] [id number] [place] [address] 79737- 0498 13 Feb, 2017 Hypokalemia E87.6 [place] [address] 86670- 4673 08 Feb, 2017 [place] [address] 42131- 7341 Feb, Primary insomnia F51.01 and Anxiety, generalized F41.1 [facility] [place] [address] [place] [id number] [place] [address] 89711 -2521 Feb, Acute suppurative otitis media of both ears without spontaneous rupture of tympanic membranes, recurrence not specified H66.003 [place] [address] [place] [id number] [place] [address] 19123- 8224 Feb, [place] [address] 13696- 6561 Jan, Osteoarthritis of spine with radiculopathy, lumbosacral region M47.27 [place] [address] [place] [id number] [place] [address] 95996- 6975 Jan, Primary insomnia F51.01 and Anxiety, generalized F41.1 [place] [address] [place] [id number] [place] [address] 50132- 3018 02 Jan, 2017 Chronic pain due to trauma G89.21 ; Left otitis media with effusion H65.92 and Otalgia of left ear H92.02 [facility] [address] [place] [id number] [place] [address] 15122 -7454 Jan, Bilateral otitis media with effusion H65.93 [place] [address] 37206- 5518 Dec, [facility] [id number] [place] [address] 21701- 2198 Dec, Primary insomnia F51.01 and Anxiety, generalized F41.1 [facility] [address] [place] [id number] [place] [address] 28608- 6240 Nov, [place] [address] 17087- 3424 Nov, [facility] [address] 48648- 0687 Nov, Anxiety, generalized F41.1 [place] [address] 28352- 0506 Nov, Pernicious anemia D51.0 [place] [address] [place] [id number] [place] [address] 90482- 5234 Nov, Primary insomnia F51.01 [place] [address] 86773- 7906 Nov, Encounter for well woman exam with routine gynecological exam Z01.419 ; Screening breast examination Z12.31 and Otalgia of left ear H92.02 [place] [address] [place] [id number] [place] [address] 43046- 3486 Oct, [facility] [address] [place] [id number] [place] [address] 63392 -8083 Oct, Insect bite (nonvenomous) of right upper arm, initial encounter S40.861A [place] [address] [place] [id number] [place] [address] 85684- 0139 Oct, Pernicious anemia D51.0 [place] [address] 73234- 2247 Oct, Anxiety, generalized F41.1 and Pernicious anemia D51.0 [place] [address] 18998- 5490 Oct, Encounter to establish care with new doctor Z76.89 ; Moderate episode of recurrent major depressive disorder F33.1 ; Empty sella syndrome E23.6 ; Seasonal allergic rhinitis, unspecified allergic rhinitis trigger J30.2 ; Essential hypertension I10 and Osteoarthritis of spine with radiculopathy, lumbosacral region M47.27 [facility] [address] [place] [id number] [place] [address] 77184- 7424 Aug, [facility] [address] 29135- 8760 Aug, [place] [address] [place] [id number] [place] [address] 71240- 8101 Aug, Anxiety, generalized F41.1 [place] [address] 70596- 2773 Aug, [place] [address] 71717- 7936 Aug, Primary insomnia F51.01 ; Essential hypertension I10 ; Empty sella syndrome E23.6 and Chronic pain due to trauma G89.21 [place] [address] 11606- 8879 July, Primary insomnia F51.01 [facility] [address] [place] [id number] [place] [address] 88973 -2222 July, Seasonal allergic rhinitis, unspecified allergic rhinitis trigger J30.2 and Acute suppurative otitis media of right ear without spontaneous rupture of tympanic membrane, recurrence not specified H66.001 [facility] [address] [place] [id number] [place] [address] 17337 -2364 July, Acute suppurative otitis media of left ear without spontaneous rupture of tympanic membrane, recurrence not specified H66.002 [facility] [address] [place] [id number] [place] [address] 25314- 1595 July, [facility] [address] 02067- 3624 July, Anxiety, generalized F41.1 [facility] [address] [place] [id number] [place] [address] 42928- 6649 Jun, [facility] [address] [place] [id number] [place] [address] 27077- 6676 Jun, Primary insomnia F51.01 [facility] [address] [place] [id number] [place] [address] 63894- 8583 Jun, Empty sella syndrome E23.6 ; Primary insomnia F51.01 and Hypokalemia E87.6 [facility] [address] [place] [id number] [place] [address] 97854- 4005 Jun, [facility] [address] [place] [id number] [place] [address] 07467- 6043 Jun, [facility] [address] [place] [id number] [place] [address] 84209- 9682 Jun, Empty sella syndrome E23.6 [facility] [address] [place] [id number] [place] [address] 79401- 4057 Jun, Anxiety, generalized F41.1 [facility] [address] [place] [id number] [place] [address] 92145- 2504 Jun, [facility] [address] [place] [id number] [place] [address] 34596- 7402 Jun, Empty sella syndrome E23.6 [facility] [address] [place] [id number] [place] [address] 23890- 4244 May, [facility] [address] [place] [id number] [place] [address] 60737- 0489 May, [facility] [address] [place] [id number] [place] [address] 91774- 4537 May, Empty sella syndrome E23.6 [facility] [address] [place] [id number] [place] [address] 60005- 1786 May, [facility] [address] [place] [id number] [place] [address] 40359- 5455 24 May, 2016 [facility] [address] [place] [id number] [place] [address] 75044- 1945 May, Primary insomnia F51.01 [facility] [address] [place] [id number] [place] [address] 64213- 8495 22 May, 2016 [facility] [address] 41509- 1097 May, Nausea R11.0 ; Other headache syndrome G44.89 and Malignant hypertension I10 [facility] [address] 64174- 4565 07 May, 2016 Anxiety, generalized F41.1 [place] [address] [place] [id number] [place] [address] 04536- 9971 28 Apr, 2016 Major depressive disorder, recurrent episode, moderate F33.1 [place] [address] 71263- 0194 28 Apr, 2016 Moderate episode of recurrent major depressive disorder F33.1 [facility] [address] [place] [id number] [place] [address] 52538- 4893 27 Apr, 2016 Other chronic postprocedural pain G89.28 [place] [address] [place] [id number] [place] [address] 82842- 5364 15 Apr, 2016 Major depressive disorder, recurrent episode, moderate F33.1 [place] [address] [place] [id number] [place] [address] 67004- 3401 07 Apr, 2016 Anxiety, generalized F41.1 [facility] [address] [place] [id number] [place] [address] 65873- 9698 03 Apr, 2016 [facility] [address] [place] [id number] [place] [address] 56531- 0232 Mar, Other chronic postprocedural pain G89.28 ; Status post craniotomy Z98.890 ; Encounter for drug screening Z02.83 and Hematuria R31.9 [place] [address] [place] [address] 37939- 2121 Mar, Major depressive disorder, recurrent episode, moderate F33.1 [place] [id number] [place] [address] 97126- 6583 Mar, [place] [address] [place] [id number] [place] [address] 96020- 5340 Mar, Anxiety, generalized F41.[address] 82622- 3730 Mar, Anxiety, generalized F41.1 and Pernicious anemia D51.0 [place] [id number] [place] [address] 54042- 2627 Mar, 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
--- OUTSIDE RECORDS SUMMARY | 2017-11-05 12:22 | XMS REPORT ---
Author Author CORRALOSBALDO New Organization [facility] Address [address] [place] [address] Care Team Providers Care Business Machine Operator Name Role Phone OSBALDO CORRAL Unavailable PROBLEMS Type Condition ICD9-CM Code XET31-YC Code Onset Dates Condition Status SNOMED Code Problem Primary insomnia F51.01 Active 7096127 Problem Major depressive disorder, recurrent episode, moderate F33.1 Active 517429320 Problem Anxiety, generalized F41.1 Active 98041581 Problem Vitamin B12 deficiency anemia due to intrinsic factor deficiency D51.0 Active 01535028 Problem Migraine without status migrainosus, not intractable, unspecified migraine type G43.909 Active 31009157 Problem Essential hypertension I10 Active 18751866 Problem Chronic pain due to trauma G89.21 Active 630084227 Problem Adjustment disorder with mixed anxiety and depressed mood F43.23 Active 25109680 Problem Seasonal allergic rhinitis, unspecified allergic rhinitis trigger J30.2 Active 567628034 Problem Empty sella syndrome E23.6 Active 306436269 Problem 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 Active 90680168 Problem Pernicious anemia D51.0 Active 22568092 Problem Hypokalemia E87.6 Active 83012154 Problem Other hyperlipidemia E78.4 Active 13248441 ALLERGIES No Information ENCOUNTERS Encounter Location Date Diagnosis [facility] [id number] [address] Sep, [facility] [id number] [address] Sep, [facility] [id number] [address] Aug, Essential hypertension I10 ; 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 ; Empty sella syndrome E23.6 ; Pernicious anemia D51.0 ; Anxiety , generalized F41.1 ; Major depressive disorder, recurrent episode, moderate F33.1 ; Primary insomnia F51.01 ; Hypokalemia E87.6 and Chronic pain due to trauma G89.21 [facility] [id number] [place] [address] 43200- 4774 Aug, [facility] [id number] [place] [address] 74874- 4111 18 Aug, 2017 Anxiety, generalized F41.1 and Osteoarthritis of spine with radiculopathy, lumbosacral region M47.27 [facility] [id number] [place] [address] 58178- 9901 Aug, [facility] [address] [address]- [address] Aug, Primary insomnia F51.01 [facility] [address] [address]- [address] July, Anxiety, generalized F41.1 and Osteoarthritis of spine with radiculopathy, lumbosacral region M47.27 [facility] [id number] [place] [address] 64108- 5352 July, Essential hypertension I10 [facility] [id number] [place] [address] 84239- 2556 July, Major depressive disorder, recurrent episode, moderate F33.1 [facility] [id number] [place] [address] 15943- 7061 July, Primary insomnia F51.01 [facility] [id number] [place] [address] 75527- 5287 Jun, Anxiety, generalized F41.1 and Osteoarthritis of spine with radiculopathy, lumbosacral region M47.27 [facility] [id number] [place] [address] 15739 -2968 Jun, Acute frontal sinusitis, recurrence not specified J01.10 ; Sinus pressure J34.89 ; Post-nasal drip R09.82 and Sore throat J02.9 [facility] [facility] [id number] [place] [address] 66966- 7432 Jun, Primary insomnia F51.01 [facility] [id number] [place] [address] May, Anxiety, generalized F41.1 and Osteoarthritis of spine with radiculopathy, lumbosacral region M47.27 [facility] [address] 38945- 2190 May, Essential hypertension I10 ; 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 [id number] [place] [address] 17325 -4712 May, Migraine without status migrainosus, not intractable, unspecified migraine type G43.909 [facility] [id number] [place] [address] 20328- 2803 May, [facility] [id number] [place] [address] 22910- 1217 May, [place] [id number] [place] [address] 60367- 3937 09 May, 2017 Osteoarthritis of spine with radiculopathy, lumbosacral region M47.27 and Primary insomnia F51.01 [facility] [id number] [place] [address] 71175- 6515 02 May, 2017 Osteoarthritis of spine with radiculopathy, lumbosacral region M47.27 and Anxiety, generalized F41.1 [facility] [address] [place] [address] 4[address] May, [place] [id number] [place] [address] 86636- 3086 Apr, [place] [id number] [place] [address] 84744- 3043 Apr, [place] [address] 38002- 8792 Apr, Anxiety, generalized F41.1 ; Major depressive disorder, recurrent episode, moderate F33.1 ; Moderate episode of recurrent major depressive disorder F33.1 and Adjustment disorder with mixed anxiety and depressed mood F43.23 [place] [address] 14008- 8507 Apr, Major depressive disorder, recurrent episode, moderate F33.1 ; Anxiety, generalized F41.1 ; Essential hypertension I10 ; Primary insomnia F51.01 and 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 [place] [id number] [place] [address] 29034- 5892 09 Apr, 2017 Other chest pain R07.89 ; Sinus bradycardia R00.1 ; Essential hypertension I10 and Other hyperlipidemia E78.4 [place] [id number] [place] [address] 83841- 2306 08 Apr, 2017 Primary insomnia F51.01 [place] [address] 68069- 3190 Apr, [place] [address] 72512- 9035 Apr, Anxiety, generalized F41.1 [place] [address] 06319- 8960 Apr, Osteoarthritis of spine with radiculopathy, lumbosacral region M47.27 [facility] [id number] [place] [address] 07519- 9985 Mar, Intractable migraine without aura and without status migrainosus G43.019 and Dyshidrotic hand dermatitis L30.1 [facility] [id number] [place] [address] 32148 -3858 Mar, Skin infection L08.9 [place] [id number] [place] [address] 94993- 6030 11 Mar, 2017 [facility] [address] 29679 -6856 Mar, Skin lesion L98.9 [place] [address] 78043- 8904 08 Mar, 2017 Primary insomnia F51.01 and Anxiety, generalized F41.1 [place] [address] 85391- 8911 Mar, Osteoarthritis of spine with radiculopathy, lumbosacral region M47.27 [place] [address] 42196- 6720 Feb, [place] [id number] [place] [address] 60674- 8638 Feb, [place] [address] 55167- 8475 Feb, Hypokalemia E87.6 [place] [id number] [place] [address] 60487- 6278 Feb, Intractable migraine without aura and without status migrainosus G43.019 and Other chest pain R07.89 [place] [id number] [place] [address] 54576- 0200 Feb, [place] [address] 28426- 0243 Feb, Osteoarthritis of spine with radiculopathy, lumbosacral region M47.27 [place] [address] 35746- 9634 Feb, Hypokalemia E87.6 [facility] [id number] [place] [address] 19231- 7982 Feb, [facility] [address] 99065- 6463 Feb, Primary insomnia F51.01 and Anxiety, generalized F41.1 [facility] [address] 07820 -7046 Feb, Acute suppurative otitis media of both ears without spontaneous rupture of tympanic membranes, recurrence not specified H66.003 [place] [address] 38084- 0572 Feb, [place] [address] 95018- 6476 Jan, Osteoarthritis of spine with radiculopathy, lumbosacral region M47.27 [place] [address] 07509- 8633 Jan, Primary insomnia F51.01 and Anxiety, generalized F41.1 [place] [address] 73416- 3386 Jan, Chronic pain due to trauma G89.21 ; Left otitis media with effusion H65.92 and Otalgia of left ear H92.02 [facility] [id number] [place] [address] 30934 -3897 Jan, Bilateral otitis media with effusion H65.93 [facility] [id number] [place] [address] 76187- 3834 Dec, [place] [address] 35848- 9340 Dec, Primary insomnia F51.01 and Anxiety, generalized F41.1 [facility] [address] 70226- 3217 Nov, [facility] [address] [place] [address] 9750 15 Nov, 2016 [facility] [address] 34561- 5030 13 Nov, 2016 Anxiety, generalized F41.1 [place] [address] 86053- 7410 12 Nov, 2016 Pernicious anemia D51.0 [place] [address] 06890- 7575 11 Nov, 2016 Primary insomnia F51.01 [place] [address] 50162- 3457 01 Nov, 2016 Encounter for well woman exam with routine gynecological exam Z01.419 ; Screening breast examination Z12.31 and Otalgia of left ear H92.02 [place] [address] 51180- 1063 15 Oct, 2016 [facility] [address] 69682 -1690 14 Oct, 2016 Insect bite (nonvenomous) of right upper arm, initial encounter S40.861A [place] [address] 65546- 1339 Oct, Pernicious anemia D51.0 [place] [address] 53088- 9546 07 Oct, 2016 Anxiety, generalized F41.1 and Pernicious anemia D51.0 [place] [address] 64033- 4209 Oct, Encounter to establish care with new doctor Z76.89 ; Moderate episode of recurrent major depressive disorder F33.1 ; Empty sella syndrome E23.6 ; Seasonal allergic rhinitis, unspecified allergic rhinitis trigger J30.2 ; Essential hypertension I10 and Osteoarthritis of spine with radiculopathy, lumbosacral region M47.27 [place] [address] 76018- 3626 Aug, [facility] [id number] [place] [address] 44283- 2089 Aug, [place] [address] 78221- 3560 Aug, Anxiety, generalized F41.1 [place] [address] 13980- 2760 Aug, [place] [address] 01063- 5766 Aug, Primary insomnia F51.01 ; Essential hypertension I10 ; Empty sella syndrome E23.6 and Chronic pain due to trauma G89.21 [place] [address] 60898- 6585 July, Primary insomnia F51.01 [facility] [address] 57628 -7320 July, Seasonal allergic rhinitis, unspecified allergic rhinitis trigger J30.2 and Acute suppurative otitis media of right ear without spontaneous rupture of tympanic membrane, recurrence not specified H66.001 [facility] [place] [id number] [place] [address] 79077 -8088 July, Acute suppurative otitis media of left ear without spontaneous rupture of tympanic membrane, recurrence not specified H66.002 [place] [id number] [place] [address] 08851- 2908 July, [place] [id number] [place] [address] 20703- 8438 July, Anxiety, generalized F41.1 [place] [address] 05437- 5254 Jun, [place] [id number] [place] [address] 04960- 6676 Jun, Primary insomnia F51.01 [facility] [address] 31218- 3475 Jun, Empty sella syndrome E23.6 ; Primary insomnia F51.01 and Hypokalemia E87.6 [facility] [id number] [place] [address] 89866- 2187 Jun, [facility] [id number] [place] [address] 08056- 5161 Jun, [facility] [id number] [place] [address] 16232- 6592 Jun, Empty sella syndrome E23.6 [facility] [id number] [place] [address] 55324- 7402 Jun, Anxiety, generalized F41.1 [facility] [id number] [place] [address] 60887- 5763 Jun, [facility] [id number] [place] [address] 77891- 2745 Jun, Empty sella syndrome E23.6 [facility] [id number] [place] [address] 25300- 6921 May, [facility] [id number] [place] [address] 40863- 7763 May, [facility] [id number] [place] [address] 11486- 2042 May, Empty sella syndrome E23.6 [facility] [id number] [place] [address] 96801- 9506 May, [facility] [id number] [place] [address] 20564- 8941 May, [facility] [id number] [place] [address] 68726- 5833 May, Primary insomnia F51.01 [facility] [id number] [place] [address] 63379- 2252 May, [facility] [address] [place] [address]- 0963 20 May, 2016 Nausea R11.0 ; Other headache syndrome G44.89 and Malignant hypertension I10 [facility] [id number] [place] [address] 50846- 9536 07 May, 2016 Anxiety, generalized F41.1 [facility] [id number] [place] [address] 66632- 8044 28 Apr, 2016 Major depressive disorder, recurrent episode, moderate F33.1 [facility] [id number] [place] [address] 37903- 1429 28 Apr, 2016 Moderate episode of recurrent major depressive disorder F33.1 [facility] [id number] [place] [address] 98008- 0050 27 Apr, 2016 Other chronic postprocedural pain G89.28 [facility] [address] 32719- 1395 15 Apr, 2016 Major depressive disorder, recurrent episode, moderate F33.1 [facility] [id number] [place] [address] 41288- 1830 07 Apr, 2016 Anxiety, generalized F41.1 [facility] [id number] [place] [address] 26816- 3110 03 Apr, 2016 [facility] [id number] [place] [address] 59067- 0211 Mar, Other chronic postprocedural pain G89.28 ; Status post craniotomy Z98.890 ; Encounter for drug screening Z02.83 and Hematuria R31.9 [facility] [id number] [place] [address] 16657- 3979 Mar, Major depressive disorder, recurrent episode, moderate F33.1 [facility] [id number] [place] [address] 15046- 2098 Mar, [facility] [id number] [place] [address] 94211- 4789 Mar, Anxiety, generalized F41.1 [place] [address] [address]- 0071 Mar, Anxiety, generalized F41.1 and Pernicious anemia D51.0 [place] [address] [address]- 2442 Mar, 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
--- OUTSIDE RECORDS SUMMARY | 2017-11-05 12:22 | XMS REPORT ---
Author Author ANYA BANKS [facility] Address [address] [place] [address] Care Team Providers Care Sheet Rock Hanger Name Role Phone ANYA BANKS Unavailable PROBLEMS Type Condition ICD9-CM Code HMS40-MG Code Onset Dates Condition Status SNOMED Code Problem Primary insomnia F51.01 Active 1047880 Problem Major depressive disorder, recurrent episode, moderate F33.1 Active 335785714 Problem Anxiety, generalized F41.1 Active 14601795 Problem Vitamin B12 deficiency anemia due to intrinsic factor deficiency D51.0 Active 38218367 Problem Migraine without status migrainosus, not intractable, unspecified migraine type G43.909 Active 02439119 Problem Essential hypertension I10 Active 52547821 Problem Chronic pain due to trauma G89.21 Active 555651218 Problem Adjustment disorder with mixed anxiety and depressed mood F43.23 Active 06440217 Problem Seasonal allergic rhinitis, unspecified allergic rhinitis trigger J30.2 Active 384442563 Problem Empty sella syndrome E23.6 Active 266855863 Problem 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 Active 06025010 Problem Pernicious anemia D51.0 Active 42831815 Problem Hypokalemia E87.6 Active 20613353 Problem Other hyperlipidemia E78.4 Active 24498678 ALLERGIES Substance Reaction Event Type Date Status Iodine anaphylaxis Drug Allergy Mar, Active Dilaudid Hallucinations Drug Allergy Mar, Active Depakote CP Drug Allergy Mar, Active Bactrim DS swelling of joint Drug Allergy Mar, Active ENCOUNTERS Encounter Location Date Diagnosis [facility] [address] [facility] [id number] [address] Aug, [facility] [address] [facility] [id number], [place] [address] Aug, Anxiety, generalized F41.1 and Osteoarthritis of spine with radiculopathy, lumbosacral region M47.27 [facility] [address] [place] [id number] [place] [address] 72771- 3340 Aug, [facility] [address] [address] Aug, Primary insomnia F51.01 [facility] [id number] [place] [address] 35858- 6314 July, Anxiety, generalized F41.1 and Osteoarthritis of spine with radiculopathy, lumbosacral region M47.27 [facility] [id number] [place] [address] 04834- 6131 July, Essential hypertension I10 [place] [address] [address] July, Major depressive disorder, recurrent episode, moderate F33.1 [place] [address] [address] July, Primary insomnia F51.01 [place] [address] [address] Jun, Anxiety, generalized F41.1 and Osteoarthritis of spine with radiculopathy, lumbosacral region M47.27 [facility] [id number] [place] [address]69 Jun, Acute frontal sinusitis, recurrence not specified J01.10 ; Sinus pressure J34.89 ; Post-nasal drip R09.82 and Sore throat J02.9 [facility] [id number] [place] [address] 60232- 0317 Jun, Primary insomnia F51.01 [facility] [id number] [place] [address] 76582- 2277 May, Anxiety, generalized F41.1 and Osteoarthritis of spine with radiculopathy, lumbosacral region M47.27 [facility] [id number] [place] [address] 39171- 3294 May, Essential hypertension I10 ; 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 ; Empty sella syndrome E23.6 ; Pernicious anemia D51.0 ; Major depressive disorder, recurrent episode, moderate F33.1 ; Primary insomnia F51.01 ; Other hyperlipidemia E78.4 and Anxiety, generalized F41.1 [facility] [id number] [place] [address] 96146- 0909 May, Vitamin B12 deficiency anemia due to intrinsic factor deficiency D51.0 and Pernicious anemia D51.0 [facility] [id number] [place] [address] 88727 -1102 May, Migraine without status migrainosus, not intractable, unspecified migraine type G43.909 [facility] [id number] [place] [address] 59924- 7779 May, [facility] [address] 61407- [address] May, [place] [address] 12[address]- 2636 May, Osteoarthritis of spine with radiculopathy, lumbosacral region M47.27 and Primary insomnia F51.01 [facility] [id number] [place] [address] 40691- 7358 02 May, 2017 Osteoarthritis of spine with radiculopathy, lumbosacral region M47.27 and Anxiety, generalized F41.1 [place] [id number] [place] [address] 96628- 3979 May, [place] [address] 82479- 2567 28 Apr, 2017 [place] [id number] [place] [address] 11592- 6790 19 Apr, 2017 [place] [id number] [place] [address] 12332- 9231 13 Apr, 2017 Anxiety, generalized F41.1 ; Major depressive disorder, recurrent episode, moderate F33.1 ; Moderate episode of recurrent major depressive disorder F33.1 and Adjustment disorder with mixed anxiety and depressed mood F43.23 [place] [address] 66833- 6668 13 Apr, 2017 Major depressive disorder, recurrent episode, moderate F33.1 ; Anxiety, generalized F41.1 ; Essential hypertension I10 ; Primary insomnia F51.01 and 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 [place] [address] 05522- 4919 09 Apr, 2017 Other chest pain R07.89 ; Sinus bradycardia R00.1 ; Essential hypertension I10 and Other hyperlipidemia E78.[address] 15052- 44[address] 08 Apr, 2017 Primary insomnia F51.[address] 41871- 4366 06 Apr, [address] 46683- 0942 Apr, Anxiety, generalized F41.[address] 49166- 3985 Apr, Osteoarthritis of spine with radiculopathy, lumbosacral region M47.[address] 13473- 9201 Mar, Intractable migraine without aura and without status migrainosus G43.019 and Dyshidrotic hand dermatitis L30.1 [facility] [address] [address] Mar, Skin infection L08.[address] 6[address]16- 3909 Mar, [facility] [address] [address] Mar, Skin lesion L98.9 [facility] [id number] [place] [address] 57629- 6448 Mar, Primary insomnia F51.01 and Anxiety, generalized F41.1 [facility] [id number] [place] [address] 23122- 3532 Mar, Osteoarthritis of spine with radiculopathy, lumbosacral region M47.27 [facility] [id number] [place] [address] 21420- 5714 Feb, [facility] [id number] [place] [address] 50312- 8708 Feb, [facility] [address] 63334- 1397 Feb, Hypokalemia E87.6 [facility] [id number] [place] [address] 05389- 1961 Feb, Intractable migraine without aura and without status migrainosus G43.019 and Other chest pain R07.89 [facility] [id number] [place] [address] 35112- 5128 Feb, [facility] [id number] [place] [address] 93656- 7604 Feb, Osteoarthritis of spine with radiculopathy, lumbosacral region M47.27 [facility] [id number] [place] [address] 26900- 9158 Feb, Hypokalemia E87.6 [facility] [id number] [place] [address] 64974- 8698 Feb, [facility] [id number] [place] [address] 20384- 0096 Feb, Primary insomnia F51.01 and Anxiety, generalized F41.1 [facility] IN [facility] [id number] [place] [address] 26206 -1741 Feb, Acute suppurative otitis media of both ears without spontaneous rupture of tympanic membranes, recurrence not specified H66.003 [facility] [id number] [place] [address] 50131- 8018 Feb, [facility] [address] 05658- 2276 Jan, Osteoarthritis of spine with radiculopathy, lumbosacral region M47.27 [place] [address] 79210- 4842 Jan, Primary insomnia F51.01 and Anxiety, generalized F41.1 [place] [address] [address]10 9422 02 Jan, 2017 Chronic pain due to trauma G89.21 ; Left otitis media with effusion H65.92 and Otalgia of left ear H92.02 [facility] IN [facility] [address] [address] Jan, Bilateral otitis media with effusion H65.93 [facility] [address] 01135- 1318 Dec, [facility] [address] 10209- 6462 Dec, Primary insomnia F51.01 and Anxiety, generalized F41.1 [place] [id number] [place] [address] 78198- 9008 Nov, [facility] [address] 27448- 1216 15 Nov, 2016 [facility] [id number] [place] [address] 12339- 4407 Nov, Anxiety, generalized F41.1 [facility] [address] 91769- 1301 Nov, Pernicious anemia D51.0 [place] [address] 21740- 2849 Nov, Primary insomnia F51.01 [facility] [id number] [place] [address] 20973- 9020 01 Nov, 2016 Encounter for well woman exam with routine gynecological exam Z01.419 ; Screening breast examination Z12.31 and Otalgia of left ear H92.02 [facility] [id number] [place] [address] 54556- 5999 15 Oct, 2016 [facility] [address] 41570 -9106 14 Oct, 2016 Insect bite (nonvenomous) of right upper arm, initial encounter S40.861A [place] [address] 00606- 7950 11 Oct, 2016 Pernicious anemia D51.0 [place] [address] 24636- 7576 07 Oct, 2016 Anxiety, generalized F41.1 and Pernicious anemia D51.0 [place] [address] 36842- 8183 Oct, Encounter to establish care with new doctor Z76.89 ; Moderate episode of recurrent major depressive disorder F33.1 ; Empty sella syndrome E23.6 ; Seasonal allergic rhinitis, unspecified allergic rhinitis trigger J30.2 ; Essential hypertension I10 and Osteoarthritis of spine with radiculopathy, lumbosacral region M47.27 [place] [id number] [place] [address] 91193- 4670 Aug, [place] [address] 06031- 4964 Aug, [place] [address] 04044- 3477 13 Aug, 2016 Anxiety, generalized F41.1 [place] [address] 57394- 0467 08 Aug, 2016 [place] [address] 00034- 6240 Aug, Primary insomnia F51.01 ; Essential hypertension I10 ; Empty sella syndrome E23.6 and Chronic pain due to trauma G89.21 [place] [address] 77875- 8172 July, Primary insomnia F51.01 [facility] [address] 44206 -3173 July, Seasonal allergic rhinitis, unspecified allergic rhinitis trigger J30.2 and Acute suppurative otitis media of right ear without spontaneous rupture of tympanic membrane, recurrence not specified H66.001 [facility] IN [facility] [address] 709[address] July, Acute suppurative otitis media of left ear without spontaneous rupture of tympanic membrane, recurrence not specified H66.002 [place] [address] 78451- 2305 July, [place] [address] 67650- 0294 July, Anxiety, generalized F41.1 [place] [address] 95342- 5092 Jun, [place] [address] 71863- 9813 Jun, Primary insomnia F51.01 [place] [address] 70857- 3993 Jun, Empty sella syndrome E23.6 ; Primary insomnia F51.01 and Hypokalemia E87.6 [place] [address] 60368- 8212 Jun, [place] [address] 21568- 2433 Jun, [place] [address] 21376- 3752 Jun, Empty sella syndrome E23.6 [facility] [id number] [place] [address] 06002- 2856 Jun, Anxiety, generalized F41.1 [facility] [id number] [place] [address] 82514- 4362 Jun, [facility] [address] 46118- 3330 Jun, Empty sella syndrome E23.6 [facility] [id number] [place] [address] 80193- 6793 May, [facility] [address] 13980- 7213 May, [facility] [address] 63505- 1051 May, Empty sella syndrome E23.6 [facility] [address] 46226- 2259 May, [facility] [id number] [place] [address] 38773- 5605 May, [facility] [id number] [place] [address] 54390- 0416 May, Primary insomnia F51.01 [facility] [id number] [place] [address] 24205- 9875 May, [facility] [address] 71293- 7323 May, Nausea R11.0 ; Other headache syndrome G44.89 and Malignant hypertension I10 [facility] [address] 95959- 3483 07 May, 2016 Anxiety, generalized F41.1 [facility] [id number] [place] [address] 52664- 1814 Apr, Major depressive disorder, recurrent episode, moderate F33.1 [facility] [address] [place] [address] 51502- 2542 28 Apr, 2016 Moderate episode of recurrent major depressive disorder F33.1 [facility] [id number] [place] [address] 15201 2546 27 Apr, 2016 Other chronic postprocedural pain G89.28 [facility] [id number] [place] [address] 39910- 0896 15 Apr, 2016 Major depressive disorder, recurrent episode, moderate F33.1 [facility] [id number] [place] [address] 91276 2541 07 Apr, 2016 Anxiety, generalized F41.1 [place] [id number] [place] [address] 89152- 4076 03 Apr, 2016 [place] [address] [address] [id number] [place] [address] 23085- 5333 Mar, Other chronic postprocedural pain G89.28 ; Status post craniotomy Z98.890 ; Encounter for drug screening Z02.83 and Hematuria R31.9 [place] [id number] [place] [address] 18779- 7287 Mar, Major depressive disorder, recurrent episode, moderate F33.1 [place] [address] [address] [id number] [place] [address] 58269- 0324 Mar, [place] [address] [id number] [place] [address] 01256 2541 Mar, Anxiety, generalized F41.1 [place] [id number] [place] [address] 81817 2541 Mar, Anxiety, generalized F41.1 and Pernicious anemia D51.0 [place] [id number] [place] [address] 61823- 2542 Mar, 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 and Status post craniotomy Z98.890 [place] [address] [place] [address] [address] [place] [address] Mar, Primary insomnia F51.01 [facility] [address] [facility] [id number], [place] [address] Feb, [facility] [address] [facility] [id number], [place] [address] 6842 Feb, Encounter to establish care Z76.89 ; Status post craniotomy Z98.890 ; 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 and diagnosed with a staff infection, states despite taking the antibiotic the infection is spreading AMELIE Lin PLAN OF CARE Activity Details Follow Up prn Reason: VITAL SIGNS Height 67 in 2017-04-10 Weight 134.6 lbs 2017-04-10 Temperature 98.0 degrees Fahrenheit 2017-04-10 Heart Rate 60 bpm 2017-04-10 Respiratory Rate 18 2017-04-10 BMI 21.08 kg/m2 2017-04-10 Blood pressure systolic 118 mmHg 2017-04-10 Blood pressure diastolic 72 mmHg 2017-04-10 MEDICATIONS Medication Instructions Dosage Frequency Start Date End Date Duration Status Duloxetine HCl 30 MG Orally Once a day in the AM 1 capsule Active Ambien 10 MG Orally Once a day 1 tablet at bedtime as needed 24h Mar, 28 days Active Aspirin Adult Low Strength 81 MG Orally Once a day 1 tablet 24h Not-Taking Fluticasone Propionate 50 MCG/ACT Nasally Once a day 1 spray in each nostril 24h Active Nortriptyline HCl 10 MG Orally Once a day 1 capsule 24h Not-Taking BD Syringe/Needle 23GX1 For use with injectable B12 Active Tizanidine HCl 4 MG Orally Three times a day 1 tablet as needed 8h 30 Active Ibuprofen 200 mg Orally Once a day 1 tablet with food or milk as needed 24h Active Potassium Chloride ER 10 MEQ Orally Once a day 1 tablet with food 24h 30 Active Cyanocobalamin 1000 MCG/ML Intramuscular once monthly Inject 1ML 28 Active Vitamin D 400 UNIT Orally Once a day 2 capsules 24h Active Ciprodex 0.3-0.1 % Otic Twice a day 4 drops into affected ear 12h Nov, 07 days Not-Taking Doxycycline Hyclate 100 MG Orally every 12 hrs 1 tablet 12h Mar, Mar, 10 days Active Oxycodone-Acetaminophen 7.5-325 MG Orally 3 times a day 1 tablet as needed 8h 04 Mar, 2017 Apr, 28 days Active Metoprolol Tartrate 25 MG TAKE ONE TABLET BY MOUTH TWICE DAILY WITH FOOD Aug, 90 Active Pravastatin Sodium 80 MG Orally Once a day 1 tablet 24h 90 Active Mupirocin 2 % Externally Three times a day 1 application to affected area 8h Mar, Mar, 5 day(s) Active Xanax 0.5 MG Orally Three times a day 1 tablet 8h 28 days Active Amlodipine Besylate 5 MG Orally Once a day 1 tablet 24h Feb, 90 days Active Ondansetron HCl 4 MG Orally 3 times a day if needed for nausea 1 tablet Feb, 14 days Active Diazepam 5 MG Orally every 12 hours 1 tablet as needed 12h Not- Taking Zyrtec Allergy 10 MG Orally Once a day 1 tablet 24h 16 Jul, 2016 30 day (s) Not-Taking Triamterene-HCTZ 37.5-25 MG Orally Once a day 1 tablet in the morning 24h 30 Not-Taking Lisinopril 40 MG Orally Once a day 1 tablet 24h 90 days Active Ipratropium Rienzi 0.06 % Nasally Three times a day 2 sprays in each nostril as needed 8h Active Chlorthalidone 25 MG Orally Once a day 1/2 tablet 24h Feb, 90 days Active Folic Acid 400 MCG Orally Once a day 1 tablet 24h Active RESULTS No Results PROCEDURES No Known [...]
--- OUTSIDE RECORDS SUMMARY | 2017-11-05 12:23 | XMS REPORT ---
Author Author CORRALOSBALDO New Organization [facility] Address [address] [place] [address] Care Team Providers Care Marine Geologist Name Role Phone OSBALDO CORRAL Unavailable PROBLEMS Type Condition ICD9-CM Code WOJ35-DV Code Onset Dates Condition Status SNOMED Code Problem Primary insomnia F51.01 Active 2848204 Problem Major depressive disorder, recurrent episode, moderate F33.1 Active 687301503 Problem Anxiety, generalized F41.1 Active 32620850 Problem Vitamin B12 deficiency anemia due to intrinsic factor deficiency D51.0 Active 59635253 Problem Migraine without status migrainosus, not intractable, unspecified migraine type G43.909 Active 00411835 Problem Essential hypertension I10 Active 23843611 Problem Chronic pain due to trauma G89.21 Active 120642718 Problem Adjustment disorder with mixed anxiety and depressed mood F43.23 Active 06923480 Problem Seasonal allergic rhinitis, unspecified allergic rhinitis trigger J30.2 Active 117402393 Problem Empty sella syndrome E23.6 Active 560564960 Problem 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 Active 75172374 Problem Pernicious anemia D51.0 Active 77883982 Problem Hypokalemia E87.6 Active 51398385 Problem Other hyperlipidemia E78.4 Active 07987754 ALLERGIES No Information ENCOUNTERS Encounter Location Date Diagnosis [facility] [id number] [address] Aug, [facility] [address] [address] July, Anxiety, generalized F41.1 and Osteoarthritis of spine with radiculopathy, lumbosacral region M47.27 [facility] [id number] [address] July, Essential hypertension I10 [facility] [id number] [place] [address]65[address] July, Major depressive disorder, recurrent episode, moderate F33.1 [place] [address] [address] July, Primary insomnia F51.01 [place] [id number] [place] [address] 91226- 1012 Jun, Anxiety, generalized F41.1 and Osteoarthritis of spine with radiculopathy, lumbosacral region M47.27 [facility] [id number] [place] [address] Jun, Acute frontal sinusitis, recurrence not specified J01.10 ; Sinus pressure J34.89 ; Post-nasal drip R09.82 and Sore throat J02.9 [place] [id number] [place] [address]32- 4168 Jun, Primary insomnia F51.01 [place] [address] [address] May, Anxiety, generalized F41.1 and Osteoarthritis of spine with radiculopathy, lumbosacral region M47.27 [place] [id number] [place] [address] 83945- 9655 May, Essential hypertension I10 ; 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 ; Empty sella syndrome E23.6 ; Pernicious anemia D51.0 ; Major depressive disorder, recurrent episode, moderate F33.1 ; Primary insomnia F51.01 ; Other hyperlipidemia E78.4 and Anxiety, generalized F41.1 [place] [id number] [place] [address] 91578- 6574 May, Vitamin B12 deficiency anemia due to intrinsic factor deficiency D51.0 and Pernicious anemia D51.0 [facility] [id number] [place] [address]48 [address]296 May, Migraine without status migrainosus, not intractable, unspecified migraine type G43.909 [place] [id number] [place] [address] 65473- 2667 May, [place] [id number] [place] [address] 23470- 0226 May, [place] [id number] [place] [address] 00951- 5016 May, Osteoarthritis of spine with radiculopathy, lumbosacral region M47.27 and Primary insomnia F51.01 [address] [id number] [place] [address] 88229- 2129 May, Osteoarthritis of spine with radiculopathy, lumbosacral region M47.27 and Anxiety, generalized F41.1 [address] [id number] [place] [address] 87812- 7797 May, [place] [id number] [place] [address] 66915- 0532 Apr, [place] [id number] [place] [address] 93755- 9490 Apr, [place] [id number] [place] [address] 77958- 5989 13 Apr, 2017 Anxiety, generalized F41.1 ; Major depressive disorder, recurrent episode, moderate F33.1 ; Moderate episode of recurrent major depressive disorder F33.1 and Adjustment disorder with mixed anxiety and depressed mood F43.23 [id number] [place] [address] 32625- 4515 Apr, Major depressive disorder, recurrent episode, moderate F33.1 ; Anxiety, generalized F41.1 ; Essential hypertension I10 ; Primary insomnia F51.01 and 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 [id number] [place] [address] 35649- 6687 09 Apr, 2017 Other chest pain R07.89 ; Sinus bradycardia R00.1 ; Essential hypertension I10 and Other hyperlipidemia E78.[id number] [place] [address] 59405- 4319 08 Apr, 2017 Primary insomnia F51.01 [place] [address] 29071- 1601 Apr, [place] [address] [address]- [address] Apr, Anxiety, generalized F41.1 [place] [address] 43244- 8815 Apr, Osteoarthritis of spine with radiculopathy, lumbosacral region M47.27 [place] [address] 99327- 7731 Mar, Intractable migraine without aura and without status migrainosus G43.019 and Dyshidrotic hand dermatitis L30.1 [facility] [address] [address] Mar, Skin infection L08.9 [place] [address] 60538- 8007 Mar, [facility] [address] 235[address] Mar, Skin lesion L98.9 [place] [address] 60230- 9336 Mar, Primary insomnia F51.01 and Anxiety, generalized F41.1 [place] [id number] [place] [address] 58368- 5071 Mar, Osteoarthritis of spine with radiculopathy, lumbosacral region M47.27 [place] [address] [address] Feb, [place] [address] 08744- 6959 Feb, [place] [address] [place] [address] Feb, Hypokalemia E87.6 [facility] [address] [address]- 365[address] Feb, Intractable migraine without aura and without status migrainosus G43.019 and Other chest pain R07.89 [facility] [address] 77487- 7108 Feb, [facility] [address] 90483- 4645 Feb, Osteoarthritis of spine with radiculopathy, lumbosacral region M47.27 [place] [address] 82444- 9260 Feb, Hypokalemia E87.6 [place] [address] 18488- 7228 Feb, [place] [address] 330[address] Feb, Primary insomnia F51.01 and Anxiety, generalized F41.1 [facility] [id number] [place] [address] 91706 -[address]694 Feb, Acute suppurative otitis media of both ears without spontaneous rupture of tympanic membranes, recurrence not specified H66.003 [facility] [id number] [place] [address] 37809- 1627 Feb, [facility] [address] 54[address]- 4498 Jan, Osteoarthritis of spine with radiculopathy, lumbosacral region M47.27 [facility] [address] 03009- 5019 Jan, Primary insomnia F51.01 and Anxiety, generalized F41.1 [facility] [id number] [place] [address] 42467- 5397 Jan, Chronic pain due to trauma G89.21 ; Left otitis media with effusion H65.92 and Otalgia of left ear H92.02 [facility] [address] [address] Jan, Bilateral otitis media with effusion H65.93 [place] [address] 12269- 7949 Dec, [place] [address] 10722- 5571 Dec, Primary insomnia F51.01 and Anxiety, generalized F41.1 [place] [address] 55890- 5824 Nov, [place] [address] 52750- 8875 Nov, [place] [address] 36335- 8884 Nov, Anxiety, generalized F41.1 [place] [address] 42089- 6605 Nov, Pernicious anemia D51.0 [place] [address] 92816- 6198 Nov, Primary insomnia F51.01 [place] [address] 24844- 5553 Nov, Encounter for well woman exam with routine gynecological exam Z01.419 ; Screening breast examination Z12.31 and Otalgia of left ear H92.02 [place] [address] 8[address]30- [address]001 Oct, [facility] [address] [address] Oct, Insect bite (nonvenomous) of right upper arm, initial encounter S40.861A [place] [address] [id number] Oct, Pernicious anemia D51.0 [place] [id number] [place] [address] 04922- 5366 Oct, Anxiety, generalized F41.1 and Pernicious anemia D51.0 [place] [id number] [place] [address] 67388- 7065 Oct, Encounter to establish care with new doctor Z76.89 ; Moderate episode of recurrent major depressive disorder F33.1 ; Empty sella syndrome E23.6 ; Seasonal allergic rhinitis, unspecified allergic rhinitis trigger J30.2 ; Essential hypertension I10 and Osteoarthritis of spine with radiculopathy, lumbosacral region M47.27 [place] [id number] [place] [address] 52733- 0876 Aug, [place] [address] 77754- 8090 Aug, [place] [id number] [place] [address] 61923- 5592 13 Aug, 2016 Anxiety, generalized F41.1 [place] [address] 59114- 8417 08 Aug, 2016 [place] [id number] [place] [address] 75227- 7799 07 Aug, 2016 Primary insomnia F51.01 ; Essential hypertension I10 ; Empty sella syndrome E23.6 and Chronic pain due to trauma G89.21 [place] [id number] [place] [address] 16863- 2769 July, Primary insomnia F51.01 [facility] [address] [address] July, Seasonal allergic rhinitis, unspecified allergic rhinitis trigger J30.2 and Acute suppurative otitis media of right ear without spontaneous rupture of tympanic membrane, recurrence not specified H66.001 [facility] [id number] [place] [address] July, Acute suppurative otitis media of left ear without spontaneous rupture of tympanic membrane, recurrence not specified H66.002 [facility] [address] 07576- 3174 July, [facility] [id number] [place] [address] 50850- 6383 July, Anxiety, generalized F41.1 [facility] [address] 18383- 8511 Jun, [facility] [address] 57548- 1499 Jun, Primary insomnia F51.01 [facility] [address] 70552- 9424 Jun, Empty sella syndrome E23.6 ; Primary insomnia F51.01 and Hypokalemia E87.6 [facility] [id number] [place] [address] 80714- 2207 Jun, [facility] [address] 75172- 4023 Jun, [facility] [address] 62303- 4591 Jun, Empty sella syndrome E23.6 [facility] [id number] [place] [address] 12507- 0171 Jun, Anxiety, generalized F41.1 [facility] [id number] [place] [address] 53536- 1653 Jun, [facility] [address] 40024- 0240 Jun, Empty sella syndrome E23.6 [facility] [address] 01486- 2648 May, [facility] [address] 35378- 6652 31 May, 2016 [facility] [id number] [place] [address] 39240- 2087 30 May, 2016 Empty sella syndrome E23.6 [facility] [id number] [place] [address] 84916- 5611 May, [facility] [address] 55977- 8995 May, [facility] [id number] [place] [address] 19204- 8406 May, Primary insomnia F51.01 [place] [address] 70981- 1260 May, [facility] [id number] [place] [address] 89960- 4407 May, Nausea R11.0 ; Other headache syndrome G44.89 and Malignant hypertension I10 [facility] [id number] [place] [address] 86881- 0578 07 May, 2016 Anxiety, generalized F41.1 [place] [id number] [place] [address] 69207- 0264 28 Apr, 2016 Major depressive disorder, recurrent episode, moderate F33.1 [place] [id number] [place] [address] 39459- 3275 28 Apr, 2016 Moderate episode of recurrent major depressive disorder F33.1 [facility] [id number] [place] [address] 03105- 7840 27 Apr, 2016 Other chronic postprocedural pain G89.28 [facility] [address] 00835- 0609 15 Apr, 2016 Major depressive disorder, recurrent episode, moderate F33.1 [facility] [id number] [place] [address] 88171- 2596 07 Apr, 2016 Anxiety, generalized F41.1 [facility] [id number] [place] [address] 53814- 8588 Apr, [place] [address] 19849- 0272 Mar, Other chronic postprocedural pain G89.28 ; Status post craniotomy Z98.890 ; Encounter for drug screening Z02.83 and Hematuria R31.9 [place] [address] 02286- 5009 Mar, Major depressive disorder, recurrent episode, moderate F33.1 [place] [address] 70647- 7019 Mar, [place] [address] 30911- 9000 Mar, Anxiety, generalized F41.1 [place] [address] 29565- 6856 Mar, Anxiety, generalized F41.1 and Pernicious anemia D51.0 [place] [id number] [place] [address] 62160- 1478 Mar, 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 and Status post craniotomy Z98.890 [place] [id number] [place] [address] 83414- 0557 Mar, Primary insomnia F51.01 [place] [id number] [place] [address] 04035- 2401 Feb, [place] [address] 72578- 8963 Feb, Encounter to establish care Z76.89 ; Status post craniotomy Z98.890 ; 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 ; Hypokalemia E87.6 ; Essential hypertension I10 ; Other hyperlipidemia E78.4 ; Pernicious anemia D51.0 ; Other depression F32.89 and Chronic nausea R11.0 IMMUNIZATIONS No Known Immunizations SOCIAL HISTORY Never Assessed REASON FOR VISIT Controlled Med Refill 03/05 PLAN OF CARE VITAL SIGNS MEDICATIONS Medication Instructions Dosage Frequency Start Date End Date Duration Status Ambien 10 MG Orally Once a day 1 tablet at bedtime as needed 24h Mar, 28 days Active Xanax 0.5 MG Orally Three times a day 1 tablet 8h 28 days Active RESULTS No Results PROCEDURES No Known procedures INSTRUCTIONS MEDICATIONS ADMINISTERED No Known Medications MEDICAL (GENERAL) HISTORY Type Description Date Medical History HTN Medical History Hypokalemia since cranioplasty in may 2015 Medical History Insomnia longstanding Sudheer works at [employer] Medical History Hypercholesterolemia Medical [...] Hospitalization History surgery only Hospitalization History . [place] 02/2017
--- OUTSIDE RECORDS SUMMARY | 2017-11-05 12:23 | XMS REPORT ---
Author Author BRYAN MEDRANO [facility] Address [address] [place] [address] Care Team Providers Care Culinary Chef Name Role Phone BRYAN MEDRANO Unavailable PROBLEMS Type Condition ICD9-CM Code VQE69-CT Code Onset Dates Condition Status SNOMED Code Problem Primary insomnia F51.01 Active 6631397 Problem Major depressive disorder, recurrent episode, moderate F33.1 Active 938719385 Problem Anxiety, generalized F41.1 Active 17369818 Problem Vitamin B12 deficiency anemia due to intrinsic factor deficiency D51.0 Active 39719399 Problem Migraine without status migrainosus, not intractable, unspecified migraine type G43.909 Active 19508762 Problem Essential hypertension I10 Active 77623436 Problem Chronic pain due to trauma G89.21 Active 938236576 Problem Adjustment disorder with mixed anxiety and depressed mood F43.23 Active 97628346 Problem Seasonal allergic rhinitis, unspecified allergic rhinitis trigger J30.2 Active 034759929 Problem Empty sella syndrome E23.6 Active 781494016 Problem 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 Active 36702175 Problem Pernicious anemia D51.0 Active 52883083 Problem Hypokalemia E87.6 Active 56083498 Problem Other hyperlipidemia E78.4 Active 23498898 ALLERGIES Substance Reaction Event Type Date Status Iodine anaphylaxis Drug Allergy Mar, Active Dilaudid Hallucinations Drug Allergy Mar, Active Depakote CP Drug Allergy Mar, Active Bactrim DS swelling of joint Drug Allergy Mar, Active ENCOUNTERS Encounter Location Date Diagnosis [facility] [address] [facility] [id number], [place] [address] Aug, [facility] [address] [facility] [id number], [place] [address] Aug, Anxiety, generalized F41.1 and Osteoarthritis of spine with radiculopathy, lumbosacral region M47.27 [facility] [address] [place] [id number] [place] [address]283- [address]054 Aug, [place] [address] 323638- 8[address] Aug, Primary insomnia F51.01 [place] [address] [place] [id number] [place] [address] 18645- 7403 July, Anxiety, generalized F41.1 and Osteoarthritis of spine with radiculopathy, lumbosacral region M47.27 [place] [address] [place] [id number] [place] [address] 10460- 3504 July, Essential hypertension I10 [place] [address] 6[address]- [address] July, Major depressive disorder, recurrent episode, moderate F33.1 [place] [address] 29885- 1427 July, Primary insomnia F51.01 [place] [address] [place] [id number] [place] [address] 04341- 7830 Jun, Anxiety, generalized F41.1 and Osteoarthritis of spine with radiculopathy, lumbosacral region M47.27 [facility] [address] [place] [id number] [place] [address] 99642 -7076 Jun, Acute frontal sinusitis, recurrence not specified J01.10 ; Sinus pressure J34.89 ; Post-nasal drip R09.82 and Sore throat J02.9 [place] [address] [place] [id number] [place] [address] 93313- 3407 Jun, Primary insomnia F51.01 [place] [address] 98232- 7249 May, Anxiety, generalized F41.1 and Osteoarthritis of spine with radiculopathy, lumbosacral region M47.27 [facility] [address] [place] [id number] [place] [address] 48816- 2038 May, Essential hypertension I10 ; 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 ; Empty sella syndrome E23.6 ; Pernicious anemia D51.0 ; Major depressive disorder, recurrent episode, moderate F33.1 ; Primary insomnia F51.01 ; Other hyperlipidemia E78.4 and Anxiety, generalized F41.1 [facility] [address] [place] [id number] [place] [address] 58651- 5156 May, Vitamin B12 deficiency anemia due to intrinsic factor deficiency D51.0 and Pernicious anemia D51.0 [facility] [address] 25[address] May, Migraine without status migrainosus, not intractable, unspecified migraine type G43.909 [facility] [address] 03107- 2871 May, [place] [address] 7[address]35- [address] May, [place] [address] 03096- 9368 May, Osteoarthritis of spine with radiculopathy, lumbosacral region M47.27 and Primary insomnia F51.01 [facility] [address] [place] [id number] [place] [address] 70075- 7818 May, Osteoarthritis of spine with radiculopathy, lumbosacral region M47.27 and Anxiety, generalized F41.1 [place] [address] [place] [id number] [place] [address] 50317- 6806 May, [place] [address] 07188- 0124 Apr, [facility] [address] [place] [id number] [place] [address] 32892- 6844 Apr, [place] [address] 39010- 2417 13 Apr, 2017 Anxiety, generalized F41.1 ; Major depressive disorder, recurrent episode, moderate F33.1 ; Moderate episode of recurrent major depressive disorder F33.1 and Adjustment disorder with mixed anxiety and depressed mood F43.[address] 59803- 5152 13 Apr, 2017 Major depressive disorder, recurrent episode, moderate F33.1 ; Anxiety, generalized F41.1 ; Essential hypertension I10 ; Primary insomnia F51.01 and 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 26181- 0293 09 Apr, 2017 Other chest pain R07.89 ; Sinus bradycardia R00.1 ; Essential hypertension I10 and Other hyperlipidemia E78.[address] 12433- 1211 08 Apr, 2017 Primary insomnia F51.[address] 05594- 5263 06 Apr, [address] 57662- 6055 02 Apr, 2017 Anxiety, generalized F41.[address] 06785- 4717 Apr, Osteoarthritis of spine with radiculopathy, lumbosacral region M47.[address] 67071- 6853 Mar, Intractable migraine without aura and without status migrainosus G43.019 and Dyshidrotic hand dermatitis L30.1 [facility] [address] [address] Mar, Skin infection L08.[address] 80048- 3798 Mar, [facility] [address] 67[address] Mar, Skin lesion L98.9 [facility] [address] [place] [id number] [place] [address] 83896- 7689 Mar, Primary insomnia F51.01 and Anxiety, generalized F41.1 [facility] [address] [place] [id number] [place] [address] 05593- 7750 Mar, Osteoarthritis of spine with radiculopathy, lumbosacral region M47.27 [facility] [address] [place] [id number] [place] [address] 20904- 8106 Feb, [facility] [address] [place] [id number] [place] [address] 24018- 3157 Feb, [facility] [address] 42308- 8650 Feb, Hypokalemia E87.6 [place] [address] 65173- 7338 Feb, Intractable migraine without aura and without status migrainosus G43.019 and Other chest pain R07.89 [facility] [address] [place] [id number] [place] [address] 16292- 0329 Feb, [facility] [address] [place] [id number] [place] [address] 32742- 1164 Feb, Osteoarthritis of spine with radiculopathy, lumbosacral region M47.27 [facility] [address] [place] [id number] [place] [address] 79679- 1049 Feb, Hypokalemia E87.6 [facility] [address] [place] [id number] [place] [address] 70933- 7164 Feb, [facility] [address] 38153- 1139 Feb, Primary insomnia F51.01 and Anxiety, generalized F41.1 [facility] [address] [place] [id number] [place] [address] 07765 -3547 Feb, Acute suppurative otitis media of both ears without spontaneous rupture of tympanic membranes, recurrence not specified H66.003 [facility] [address] 06101- 9674 Feb, [facility] [address] 86141- 0231 Jan, Osteoarthritis of spine with radiculopathy, lumbosacral region M47.27 [place] [address] 46477- 7275 Jan, Primary insomnia F51.01 and Anxiety, generalized F41.1 [place] [address] 81887- 7152 Jan, Chronic pain due to trauma G89.21 ; Left otitis media with effusion H65.92 and Otalgia of left ear H92.02 [facility] [address] [address]22 [address]20[address] Jan, Bilateral otitis media with effusion H65.93 [place] [address] 17450- 0410 Dec, [place] [address] 32820- 2678 Dec, Primary insomnia F51.01 and Anxiety, generalized F41.1 [place] [address] 50588- 3656 Nov, [facility] [address] [place] [id number] [place] [address] 66174- 8228 Nov, [facility] [address] 85122- 7605 Nov, Anxiety, generalized F41.1 [facility] [address] 10658- 3065 Nov, Pernicious anemia D51.0 [place] [address] 10320- 5984 11 Nov, 2016 Primary insomnia F51.01 [place] [address] [place] [id number] [place] [address] 10373- 9119 01 Nov, 2016 Encounter for well woman exam with routine gynecological exam Z01.419 ; Screening breast examination Z12.31 and Otalgia of left ear H92.02 [place] [address] [place] [id number] [place] [address] 45477- 4189 15 Oct, 2016 [facility] [address] 87726 -4998 14 Oct, 2016 Insect bite (nonvenomous) of right upper arm, initial encounter S40.861A [place] [address] 23824- 4206 Oct, Pernicious anemia D51.[address] 94183- 9348 Oct, Anxiety, generalized F41.1 and Pernicious anemia D51.0 [place] [address] [place] [id number] [place] [address] 79319- 2456 Oct, Encounter to establish care with new doctor Z76.89 ; Moderate episode of recurrent major depressive disorder F33.1 ; Empty sella syndrome E23.6 ; Seasonal allergic rhinitis, unspecified allergic rhinitis trigger J30.2 ; Essential hypertension I10 and Osteoarthritis of spine with radiculopathy, lumbosacral region M47.27 [place] [address] [place] [id number] [place] [address] 70572- 6393 Aug, [place] [address] [place] [id number] [place] [address] 90309- 5676 Aug, [place] [address] 05788- 1829 13 Aug, 2016 Anxiety, generalized F41.1 [place] [address] [place] [id number] [place] [address] 64541- 7762 08 Aug, 2016 [place] [address] 73449- 6745 Aug, Primary insomnia F51.01 ; Essential hypertension I10 ; Empty sella syndrome E23.6 and Chronic pain due to trauma G89.21 [place] [address] 77588- 3779 July, Primary insomnia F51.01 [facility] [address] 19503 -6896 July, Seasonal allergic rhinitis, unspecified allergic rhinitis trigger J30.2 and Acute suppurative otitis media of right ear without spontaneous rupture of tympanic membrane, recurrence not specified H66.001 [facility] [address] 50843 -1183 July, Acute suppurative otitis media of left ear without spontaneous rupture of tympanic membrane, recurrence not specified H66.002 [place] [address] 68080- 9687 July, [place] [address] 90683- 8023 July, Anxiety, generalized F41.1 [place] [address] 00703- 1729 Jun, [place] [address] 24946- 9384 Jun, Primary insomnia F51.01 [place] [address] 76781- 7777 Jun, Empty sella syndrome E23.6 ; Primary insomnia F51.01 and Hypokalemia E87.6 [place] [address] 98922- 5543 Jun, [place] [address] 76609- 1343 Jun, [place] [address] 17526- 4000 Jun, Empty sella syndrome E23.6 [facility] [address] [place] [address] 03006- 9975 Jun, Anxiety, generalized F41.1 [facility] [address] [place] [id number] [place] [address] 71905- 4920 Jun, [facility] [address] [place] [id number] [place] [address] 44231- 3098 Jun, Empty sella syndrome E23.6 [facility] [address] [place] [address] 58577- 6164 May, [facility] [address] [place] [id number] [place] [address] 11364- 4579 May, [facility] [address] [place] [id number] [place] [address] 30931- 1572 May, Empty sella syndrome E23.6 [facility] [address] [place] [id number] [place] [address] 56640- 3620 May, [facility] [address] [place] [id number] [place] [address] 13265- 6563 May, [facility] [address] [place] [id number] [place] [address] 91519- 0881 May, Primary insomnia F51.01 [facility] [address] [place] [id number] [place] [address] 08620- 0893 May, [facility] [address] [place] [id number] [place] [address] 19361- 4484 May, Nausea R11.0 ; Other headache syndrome G44.89 and Malignant hypertension I10 [facility] [address] [place] [address] 44036- 2657 May, Anxiety, generalized F41.1 [facility] [address] [place] [address] 78983- 6176 Apr, Major depressive disorder, recurrent episode, moderate F33.1 [facility] [address] [place] [id number] [place] [address] 78647- 8523 28 Apr, 2016 Moderate episode of recurrent major depressive disorder F33.1 [facility] [address] [place] [id number] [place] [address] 43887- 9906 27 Apr, 2016 Other chronic postprocedural pain G89.28 [facility] [address] 79490- 9492 15 Apr, 2016 Major depressive disorder, recurrent episode, moderate F33.1 [facility] [address] [place] [id number] [place] [address] 57779- 9132 07 Apr, 2016 Anxiety, generalized F41.1 [place] [address] [place] [id number] [place] [address] 60995- 8925 03 Apr, 2016 [place] [address] 26005- 4049 Mar, Other chronic postprocedural pain G89.28 ; Status post craniotomy Z98.890 ; Encounter for drug screening Z02.83 and Hematuria R31.9 [place] [address] [place] [id number] [place] [address] 83562- 1238 Mar, Major depressive disorder, recurrent episode, moderate F33.1 [place] [address] [place] [id number] [place] [address] 77648- 1121 Mar, [place] [address] [place] [id number] [place] [address] 32360- 7357 Mar, Anxiety, generalized F41.1 [place] [address] [place] [id number] [place] [address] 10087- 3571 Mar, Anxiety, generalized F41.1 and Pernicious anemia D51.0 [place] [address] [place] [id number] [place] [address] 03768- 5545 Mar, 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 and Status post craniotomy Z98.890 [place] [address] [facility] [id number] [place] [address]- [address] Mar, Primary insomnia F51.01 [facility] [address] [facility] [id number], [place] [address] Feb, [facility] [address] [facility] [id number], [place] [address]- 2986 Feb, Encounter to establish care Z76.89 ; Status post craniotomy Z98.890 ; 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 ; Hypokalemia E87.6 ; Essential hypertension I10 ; Other hyperlipidemia E78.4 ; Pernicious anemia D51.0 ; Other depression F32.89 and Chronic nausea R11.0 IMMUNIZATIONS No Known Immunizations SOCIAL HISTORY Never Assessed REASON FOR VISIT possible insect bite Pt has a bump on L thumb, states it is itchy at night AMELIE Lin PLAN OF CARE Activity Details Follow Up Return in 4-5 days if not improving Reason: VITAL SIGNS Height 67 in 2017-04-08 Weight 134.8 lbs 2017-04-08 Temperature 98.1 degrees Fahrenheit 2017-04-08 Heart Rate 58 bpm 2017-04-08 Respiratory Rate 18 2017-04-08 BMI 21.11 kg/m2 2017-04-08 Blood pressure systolic 102 mmHg 2017-04-08 Blood pressure diastolic 60 mmHg 2017-04-08 MEDICATIONS Medication Instructions Dosage Frequency Start Date End Date Duration Status Vitamin D 400 UNIT Orally Once a day 2 capsules 24h Active Tizanidine HCl 4 MG Orally Three times a day 1 tablet as needed 8h 30 Active Ciprodex 0.3-0.1 % Otic Twice a day 4 drops into affected ear 12h Nov, 07 days Not-Taking Pravastatin Sodium 80 MG Orally Once a day 1 tablet 24h 90 Active Xanax 0.5 MG Orally Three times a day 1 tablet 8h 28 days Active Aspirin Adult Low Strength 81 MG Orally Once a day 1 tablet 24h Not-Taking Chlorthalidone 25 MG Orally Once a day 1/2 tablet 24h 14 Feb, 2017 30 day(s) Active Oxycodone-Acetaminophen 7.5-325 MG Orally 3 times a day 1 tablet as needed 8h Mar, Apr, 28 days Active Ambien 10 MG Orally Once a day 1 tablet at bedtime as needed 24h 02 Tone, 2017 28 days Active Lisinopril 40 MG Orally Once a day 1 tablet 24h 90 days Active Potassium Chloride ER 10 MEQ Orally Once a day 1 tablet with food 24h 30 Active Duloxetine HCl 30 MG Orally Once a day in the AM 1 capsule Active Zyrtec Allergy 10 MG Orally Once a day 1 tablet 24h July, 30 day (s) Not-Taking Doxycycline Hyclate 100 MG Orally every 12 hrs 1 tablet 12h Mar, Mar, 10 days Active Nortriptyline HCl 10 MG Orally Once a day 1 capsule 24h Not-Taking Amlodipine Besylate 5 MG Orally Once a day 1 tablet 24h 14 Feb, 2017 30 day(s) Active Ibuprofen 200 mg Orally Once a day 1 tablet with food or milk as needed 24h Active Ipratropium [place] 0.06 % Nasally Three times a day 2 sprays in each nostril as needed 8h Active Triamterene-HCTZ 37.5-25 MG Orally Once a day 1 tablet in the morning 24h 30 Not-Taking BD Syringe/Needle 23GX1 For use with injectable B12 Active Metoprolol Tartrate 25 MG TAKE ONE TABLET BY MOUTH TWICE DAILY WITH FOOD Aug, 90 Active Cyanocobalamin 1000 MCG/ML Intramuscular once monthly Inject 1ML 28 Active Diazepam 5 MG Orally every 12 hours 1 tablet as needed 12h Not- Taking Fluticasone Propionate 50 MCG/ACT Nasally Once a day 1 spray in each nostril 24h Active Folic Acid 400 MCG Orally Once a day 1 tablet 24h Active Ondansetron HCl 4 MG Orally 3 times a day if needed for nausea 1 tablet Feb, 14 days Active RESULTS No Results PROCEDURES No [...] Hospitalization History surgery only Hospitalization History . [facility] 02/2017
--- OUTSIDE RECORDS SUMMARY | 2017-11-05 12:24 | XMS REPORT ---
Author Author OSBALDO CORRAL Organization [facility] Address [address] [place] [address] Care Team Providers Care County Attorney Name Role Phone OSBALDO CORRAL Unavailable PROBLEMS Type Condition ICD9-CM Code DSV12-GS Code Onset Dates Condition Status SNOMED Code Problem Primary insomnia F51.01 Active 8339175 Problem Major depressive disorder, recurrent episode, moderate F33.1 Active 854864596 Problem Anxiety, generalized F41.1 Active 39510701 Problem Vitamin B12 deficiency anemia due to intrinsic factor deficiency D51.0 Active 42558375 Problem Migraine without status migrainosus, not intractable, unspecified migraine type G43.909 Active 57471324 Problem Essential hypertension I10 Active 17472328 Problem Chronic pain due to trauma G89.21 Active 270896627 Problem Adjustment disorder with mixed anxiety and depressed mood F43.23 Active 53513768 Problem Seasonal allergic rhinitis, unspecified allergic rhinitis trigger J30.2 Active 109035009 Problem Empty sella syndrome E23.6 Active 244456421 Problem 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 Active 78329558 Problem Pernicious anemia D51.0 Active 46612318 Problem Hypokalemia E87.6 Active 50934609 Problem Other hyperlipidemia E78.4 Active 63857885 ALLERGIES Substance Reaction Event Type Date Status Iodine anaphylaxis Drug Allergy Feb, Active Dilaudid Hallucinations Drug Allergy Feb, Active Depakote CP Drug Allergy Feb, Active Bactrim DS swelling of joint Drug Allergy Feb, Active ENCOUNTERS Encounter Location Date Diagnosis [facility] [id number], [place] [address] Aug, [facility] [id number], [place] [address] Aug, Primary insomnia F51.01 [facility] [id number] [place] [address]702[address]60 July, Anxiety, generalized F41.1 and Osteoarthritis of spine with radiculopathy, lumbosacral region M47.27 [place] [id number] [place] [address] 28130- 7796 July, Essential hypertension I10 [place] [address] [address] July, Major depressive disorder, recurrent episode, moderate F33.1 [place] [address] 224[address]- [address] July, Primary insomnia F51.01 [place] [address] [address]- [address] Jun, Anxiety, generalized F41.1 and Osteoarthritis of spine with radiculopathy, lumbosacral region M47.27 [facility] [address] [address] Jun, Acute frontal sinusitis, recurrence not specified J01.10 ; Sinus pressure J34.89 ; Post-nasal drip R09.82 and Sore throat J02.9 [place] [address] [address]- 18[address] Jun, Primary insomnia F51.01 [place] [id number] [place] [address] 75548- 1828 May, Anxiety, generalized F41.1 and Osteoarthritis of spine with radiculopathy, lumbosacral region M47.27 [place] [id number] [place] [address] 99428- 0681 May, Essential hypertension I10 ; 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 ; Empty sella syndrome E23.6 ; Pernicious anemia D51.0 ; Major depressive disorder, recurrent episode, moderate F33.1 ; Primary insomnia F51.01 ; Other hyperlipidemia E78.4 and Anxiety, generalized F41.1 [place] [id number] [place] [address] 85266- 2297 May, Vitamin B12 deficiency anemia due to intrinsic factor deficiency D51.0 and Pernicious anemia D51.0 [facility] [id number] [place] [address]97 -[address] May, Migraine without status migrainosus, not intractable, unspecified migraine type G43.909 [facility] [address] [address]- [address] May, [facility] [address] [address]- [address] May, [place] [address] [address] May, Osteoarthritis of spine with radiculopathy, lumbosacral region M47.27 and Primary insomnia F51.01 [place] [address] [address]- 09[address] May, Osteoarthritis of spine with radiculopathy, lumbosacral region M47.27 and Anxiety, generalized F41.1 [place] [address] 00[address]- 0678 May, [facility] [address] [address] 28 Apr, 2017 [place] [id number] [place] [address] 43490- 7643 19 Apr, 2017 [place] [address] 16621- 86[address] 13 Apr, 2017 Anxiety, generalized F41.1 ; Major depressive disorder, recurrent episode, moderate F33.1 ; Moderate episode of recurrent major depressive disorder F33.1 and Adjustment disorder with mixed anxiety and depressed mood F43.23 [place] [id number] [place] [address] 21207- 2750 13 Apr, 2017 Major depressive disorder, recurrent episode, moderate F33.1 ; Anxiety, generalized F41.1 ; Essential hypertension I10 ; Primary insomnia F51.01 and 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 [address]- [address] 09 Apr, 2017 Other chest pain R07.89 ; Sinus bradycardia R00.1 ; Essential hypertension I10 and Other hyperlipidemia E78.[address] [address]- 47[address] 08 Apr, 2017 Primary insomnia F51.01 [place] [address] 8[address]- 6220 Apr, [address] [address]- [address] Apr, Anxiety, generalized F41.[address] 17038- 4666 Apr, Osteoarthritis of spine with radiculopathy, lumbosacral region M47.[address] 41227- [address] Mar, Intractable migraine without aura and without status migrainosus G43.019 and Dyshidrotic hand dermatitis L30.1 [facility] [address] [address] Mar, Skin infection L08.[address] [address]10- [address] Mar, [facility] [address] [address] Mar, Skin lesion L98.[address] [address]- 1987 Mar, Primary insomnia F51.01 and Anxiety, generalized F41.[address] 67124- 9822 Mar, Osteoarthritis of spine with radiculopathy, lumbosacral region M47.27 [facility] [id number] [place] [address] 77357- 5136 Feb, [facility] [id number] [place] [address] 15857- 7379 Feb, [facility] [id number] [place] [address] 47629- 4028 Feb, Hypokalemia E87.6 [facility] [address] [address]53- 14[address] Feb, Intractable migraine without aura and without status migrainosus G43.019 and Other chest pain R07.89 [facility] [id number] [place] [address] 44874- 9960 Feb, [facility] [address] 56232- 0[address] Feb, Osteoarthritis of spine with radiculopathy, lumbosacral region M47.27 [facility] [id number] [place] [address] 24211- 4555 Feb, Hypokalemia E87.6 [facility] [id number] [place] [address] 58895- 2031 Feb, [facility] [id number] [place] [address] 21013- 2594 Feb, Primary insomnia F51.01 and Anxiety, generalized F41.1 [facility] [id number] [place] [address]51 -[address]85 Feb, Acute suppurative otitis media of both ears without spontaneous rupture of tympanic membranes, recurrence not specified H66.003 [facility] [id number] [place] [address] 82549- 2395 Feb, [facility] [id number] [place] [address] 52669- 9433 Jan, Osteoarthritis of spine with radiculopathy, lumbosacral region M47.27 [facility] [id number] [place] [address] 38789- 9449 Jan, Primary insomnia F51.01 and Anxiety, generalized F41.1 [facility] [id number] [place] [address] 25796- 0197 02 Jan, 2017 Chronic pain due to trauma G89.21 ; Left otitis media with effusion H65.92 and Otalgia of left ear H92.02 [facility] [id number] [place] [address]16 -3875 Jan, Bilateral otitis media with effusion H65.93 [facility] [address] 39510- 6113 Dec, [facility] [address] 17103- 9641 Dec, Primary insomnia F51.01 and Anxiety, generalized F41.1 [place] [id number] [place] [address] 72439- 5659 Nov, [facility] [address] 06270- 12[address] Nov, [facility] [id number] [place] [address] 16448- 9367 Nov, Anxiety, generalized F41.1 [facility] [id number] [place] [address] 94802- 0878 Nov, Pernicious anemia D51.0 [place] [id number] [place] [address] 78879- 8401 Nov, Primary insomnia F51.01 [facility] [id number] [place] [address] 11044- 5319 Nov, Encounter for well woman exam with routine gynecological exam Z01.419 ; Screening breast examination Z12.31 and Otalgia of left ear H92.02 [facility] [id number] [place] [address] 76261- 1256 15 Oct, 2016 [facility] [id number] [place] [address] 00250 -2360 14 Oct, 2016 Insect bite (nonvenomous) of right upper arm, initial encounter S40.861A [place] [id number] [place] [address] 97595- 8528 11 Oct, 2016 Pernicious anemia D51.0 [place] [id number] [place] [address] 77281- 5392 Oct, Anxiety, generalized F41.1 and Pernicious anemia D51.0 [place] [address] 92095- 7299 Oct, Encounter to establish care with new doctor Z76.89 ; Moderate episode of recurrent major depressive disorder F33.1 ; Empty sella syndrome E23.6 ; Seasonal allergic rhinitis, unspecified allergic rhinitis trigger J30.2 ; Essential hypertension I10 and Osteoarthritis of spine with radiculopathy, lumbosacral region M47.27 [place] [id number] [place] [address] 59468- 7793 Aug, [place] [id number] [place] [address] 59307- 3291 Aug, [place] [id number] [place] [address] 08569- 7728 13 Aug, 2016 Anxiety, generalized F41.1 [place] [id number] [place] [address] 53858- 8801 08 Aug, 2016 [place] [id number] [place] [address] 73117- 0122 07 Aug, 2016 Primary insomnia F51.01 ; Essential hypertension I10 ; Empty sella syndrome E23.6 and Chronic pain due to trauma G89.21 [place] [id number] [place] [address] 16762- 5568 July, Primary insomnia F51.01 [facility] [id number] [place] [address] 88422 -6586 July, Seasonal allergic rhinitis, unspecified allergic rhinitis trigger J30.2 and Acute suppurative otitis media of right ear without spontaneous rupture of tympanic membrane, recurrence not specified H66.001 [facility] [id number] [place] [address] 35167 -7693 July, Acute suppurative otitis media of left ear without spontaneous rupture of tympanic membrane, recurrence not specified H66.002 [facility] [id number] [place] [address] 60139- 8091 July, [place] [address] 42654- 5[address] July, Anxiety, generalized F41.1 [place] [id number] [place] [address] 70030- 2413 Jun, [place] [address] 86162- 0144 Jun, Primary insomnia F51.01 [facility] [address] 17698- 6566 Jun, Empty sella syndrome E23.6 ; Primary insomnia F51.01 and Hypokalemia E87.6 [place] [id number] [place] [address] 56518- 2042 Jun, [place] [id number] [place] [address] 15470- 4034 Jun, [place] [id number] [place] [address] 38166- 2287 Jun, Empty sella syndrome E23.6 [place] [address] 27927- 6570 Jun, Anxiety, generalized F41.1 [facility] [id number] [place] [address] 02779- 1566 Jun, [facility] [address], [place] [address] Jun, Empty sella syndrome E23.6 [facility] [id number] [place] [address] 61465- 8935 May, [facility] [id number] [place] [address] 69829- 9021 May, [facility] [id number] [place] [address] 53261- 8296 May, Empty sella syndrome E23.6 [facility] [id number] [place] [address] 47812- 8588 May, [facility] [id number] [place] [address] 40742- 4291 May, [facility] [id number] [place] [address] 21384- 4873 May, Primary insomnia F51.01 [facility] [id number] [place] [address] 13255- 5534 May, [facility] [id number] [place] [address] 30332- 8657 May, Nausea R11.0 ; Other headache syndrome G44.89 and Malignant hypertension I10 [place] [id number] [place] [address] 78861- 3147 May, Anxiety, generalized F41.1 [facility] [id number] [place] [address] 26676- 6989 Apr, Major depressive disorder, recurrent episode, moderate F33.1 [facility] [id number] [place] [address] 77371- 2505 Apr, Moderate episode of recurrent major depressive disorder F33.1 [facility] [id number] [place] [address] 64245- 1625 27 Apr, 2016 Other chronic postprocedural pain G89.28 [facility] [id number] [place] [address] 19597- 7908 15 Apr, 2016 Major depressive disorder, recurrent episode, moderate F33.1 [place] [id number] [place] [address] 48257- 3764 07 Apr, 2016 Anxiety, generalized F41.1 [place] [id number] [place] [address] 25349- 2667 03 Apr, 2016 [place] [address] 74123- 8872 Mar, Other chronic postprocedural pain G89.28 ; Status post craniotomy Z98.890 ; Encounter for drug screening Z02.83 and Hematuria R31.9 [place] [id number] [place] [address] 01633- 2603 Mar, Major depressive disorder, recurrent episode, moderate F33.1 [place] [id number] [place] [address] 18973- 0997 12 Mar, 2016 [place] [id number] [place] [address] 54637- 3626 Mar, Anxiety, generalized F41.1 [place] [id number] [place] [address] 88460- 6738 10 Mar, 2016 Anxiety, generalized F41.1 and Pernicious anemia D51.0 [place] [id number] [place] [address] 97998- 9679 Mar, 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 and Status post craniotomy Z98.890 [place] [id number] [place] [address] 23896- 3519 Mar, Primary insomnia F51.01 [place] [id number] [place] [address] 88027- 4980 Feb, [place] [id number] [place] [address] 91471- 4338 27 Dec, 2016 Encounter to establish care Z76.89 ; Status post craniotomy Z98.890 ; 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 ; Hypokalemia E87.6 ; Essential hypertension I10 ; Other hyperlipidemia E78.4 ; Pernicious anemia D51.0 ; Other depression F32.89 and Chronic nausea R11.0 IMMUNIZATIONS Vaccine Route Administration Date Status PHENERGAN (IM) 25 MG (25 MG/ML) IM Intramuscular Mar 20, 2017 Administered TORADOL (IM) 60 MG/2ML (UP TO 15 MG) IM Intramuscular Mar 20, 2017 Administered SOCIAL HISTORY Never Assessed REASON FOR VISIT neuro f/u: follow up from hospital at [facility] arian malik PLAN OF CARE Activity Details Follow Up 4 Weeks Reason:CHM/Migraine VITAL SIGNS Height 67 in 2017-03-20 Weight 132.4 lbs 2017-03-20 Temperature 97.8 degrees Fahrenheit 2017-03-20 Heart Rate 58 bpm 2017-03-20 Respiratory Rate 20 2017-03-20 BMI 20.73 kg/m2 2017-03-20 Blood pressure systolic 118 mmHg 2017-03-20 Blood pressure diastolic 74 mmHg 2017-03-20 MEDICATIONS Medication Instructions Dosage Frequency Start Date End Date Duration Status Ambien 10 MG Orally Once a day 1 tablet at bedtime as needed 24h Mar, 28 days Active Nortriptyline HCl 10 MG Orally Once a day 1 capsule 24h Not-Taking BD Syringe/Needle 23GX1 For use with injectable B12 Active Oxycodone-Acetaminophen 5-325 MG Orally 3 times a day 1 tablet as needed 8h Feb, 28 days Active Ibuprofen 200 mg Orally Once a day 1 tablet with food or milk as needed 24h Active Aspirin Adult Low Strength 81 MG Orally Once a day 1 tablet 24h Not-Taking Zyrtec Allergy 10 MG Orally Once a day 1 tablet 24h July, 30 day (s) Not-Taking Ondansetron HCl 4 MG Orally 3 times a day if needed for nausea 1 tablet Feb, 14 days Active Ipratropium Troutman 0.06 % Nasally Three times a day 2 sprays in each nostril as needed 8h Active Metoprolol Tartrate 25 MG TAKE ONE TABLET BY MOUTH TWICE DAILY WITH FOOD Aug, 90 Active Potassium Chloride ER 10 MEQ Orally Once a day 1 tablet with food 24h 30 Active Duloxetine HCl 30 MG Orally Once a day in the AM 1 capsule Active Lisinopril 40 MG Orally Once a day 1 tablet 24h 90 days Active Folic Acid 400 MCG Orally Once a day 1 tablet 24h Active Diazepam 5 MG Orally every 12 hours 1 tablet as needed 12h Not- Taking Cyanocobalamin 1000 MCG/ML Intramuscular once monthly Inject 1ML 28 Active Xanax 0.5 MG Orally Three times a day 1 tablet 8h 28 days Active Vitamin D 400 UNIT Orally Once a day 2 capsules 24h Active Chlorthalidone 25 MG Orally Once a day 1/2 tablet 24h Feb, 30 day(s) Active Triamterene-HCTZ 37.5-25 MG Orally Once a day 1 tablet in the morning 24h 30 Not-Taking Amlodipine Besylate 5 MG Orally Once a day 1 tablet 24h Feb, 30 day(s) Active Pravastatin Sodium 80 MG Orally Once a day 1 tablet 24h 90 Active Ciprodex 0.3-0.1 % Otic Twice a day 4 drops into affected ear 12h Nov, 07 days Not-Taking Tizanidine HCl 4 MG Orally Three times a day 1 tablet as needed 8h 30 Active Fluticasone Propionate 50 MCG/ACT Nasally Once a day 1 spray in each nostril 24h Active RESULTS No Results PROCEDURES Procedure Date Ordered Result Body Site PHENERGAN (IM) 25 MG (25 MG/ML) Mar 20, 2017 THER/PROPH/DIAG INJ, SC/IM Mar 20, 2017 TORADOL (IM) 60 MG/2ML (UP TO 15 MG) Mar 20, 2017 INSTRUCTIONS MEDICATIONS ADMINISTERED No Known Medications MEDICAL (GENERAL) HISTORY Type Description Date Medical History HTN Medical History Hypokalemia since cranioplasty in may 2015 Medical History Insomnia longstanding Ambien works at [employer] Medical History Hypercholesterolemia Medical History prenicious anemia [...] History surgery only Hospitalization History [facility] 02/2017
--- OUTSIDE RECORDS SUMMARY | 2017-11-05 12:24 | XMS REPORT ---
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 Name Role Phone OSBALDO CORRAL Unavailable PROBLEMS Type Condition ICD9-CM Code ACB43-KC Code Onset Dates Condition Status SNOMED Code Problem Primary insomnia F51.01 Active 4869041 Problem Major depressive disorder, recurrent episode, moderate F33.1 Active 130133803 Problem Anxiety, generalized F41.1 Active 14847898 Problem Vitamin B12 deficiency anemia due to intrinsic factor deficiency D51.0 Active 03607220 Problem Migraine without status migrainosus, not intractable, unspecified migraine type G43.909 Active 14599657 Problem Essential hypertension I10 Active 23964963 Problem Chronic pain due to trauma G89.21 Active 515108781 Problem Adjustment disorder with mixed anxiety and depressed mood F43.23 Active 45007447 Problem Seasonal allergic rhinitis, unspecified allergic rhinitis trigger J30.2 Active 362474021 Problem Empty sella syndrome E23.6 Active 109467194 Problem 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 Active 42364055 Problem Pernicious anemia D51.0 Active 65653722 Problem Hypokalemia E87.6 Active 16904324 Problem Other hyperlipidemia E78.4 Active 83192692 ALLERGIES No Information ENCOUNTERS Encounter Location Date Diagnosis [facility] [id number] [address] Aug, [facility] [id number], [place] [address] Aug, [facility] [id number] [place] [address]1497- 1169 Aug, Primary insomnia F51.01 [facility] [id number] [address] July, Anxiety, generalized F41.1 and Osteoarthritis of spine with radiculopathy, lumbosacral region M47.27 [facility] [id number] [place] [address] 41366- 8883 July, Essential hypertension I10 [facility] [id number] [place] [address] 06805- 7966 July, Major depressive disorder, recurrent episode, moderate F33.1 [place] [address] [address]- [address] July, Primary insomnia F51.01 [place] [address] [address]- [address] Jun, Anxiety, generalized F41.1 and Osteoarthritis of spine with radiculopathy, lumbosacral region M47.27 [facility] [id number] [place] [address]1 Jun, Acute frontal sinusitis, recurrence not specified J01.10 ; Sinus pressure J34.89 ; Post-nasal drip R09.82 and Sore throat J02.9 [place] [address] 6[address]- [address] Jun, Primary insomnia F51.01 [facility] [id number] [place] [address] 72215- 0353 May, Anxiety, generalized F41.1 and Osteoarthritis of spine with radiculopathy, lumbosacral region M47.27 [facility] [id number] [place] [address] 40145- 5067 May, Essential hypertension I10 ; 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 ; Empty sella syndrome E23.6 ; Pernicious anemia D51.0 ; Major depressive disorder, recurrent episode, moderate F33.1 ; Primary insomnia F51.01 ; Other hyperlipidemia E78.4 and Anxiety, generalized F41.1 [facility] [facility] [id number] [place] [address] 61078- 5626 May, Vitamin B12 deficiency anemia due to intrinsic factor deficiency D51.0 and Pernicious anemia D51.0 [facility] [id number] [place] [address] 39941 -4225 May, Migraine without status migrainosus, not intractable, unspecified migraine type G43.909 [facility] [id number] [place] [address] 45703- 8828 May, [facility] [address] [address]- 8521 May, [place] [address] 7[address]- 8072 09 May, 2017 Osteoarthritis of spine with radiculopathy, lumbosacral region M47.27 and Primary insomnia F51.01 [facility] [address] 58528- 5555 02 May, 2017 Osteoarthritis of spine with radiculopathy, lumbosacral region M47.27 and Anxiety, generalized F41.1 [place] [address] 04945- 2047 02 May, 2017 [place] [address] 95439- 5386 28 Apr, 2017 [place] [address] 59579- 3198 19 Apr, 2017 [place] [address] 62454- 7603 13 Apr, 2017 Anxiety, generalized F41.1 ; Major depressive disorder, recurrent episode, moderate F33.1 ; Moderate episode of recurrent major depressive disorder F33.1 and Adjustment disorder with mixed anxiety and depressed mood F43.23 [facility] [id number] [place] [address] 64223- 9395 13 Apr, 2017 Major depressive disorder, recurrent episode, moderate F33.1 ; Anxiety, generalized F41.1 ; Essential hypertension I10 ; Primary insomnia F51.01 and 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 [facility] [id number] [place] [address] 75148- 0684 09 Apr, 2017 Other chest pain R07.89 ; Sinus bradycardia R00.1 ; Essential hypertension I10 and Other hyperlipidemia E78.4 [place] [address] 23016- 6067 08 Apr, 2017 Primary insomnia F51.01 [place] [address] 31820- 5846 06 Apr, 2017 [address] [address] 91498- 8049 Apr, Anxiety, generalized F41.1 [place] [address] 22462- 1022 Apr, Osteoarthritis of spine with radiculopathy, lumbosacral region M47.27 [place] [address] 73147- 6127 Mar, Intractable migraine without aura and without status migrainosus G43.019 and Dyshidrotic hand dermatitis L30.1 [facility] [place] [address] 39[address]5957 Mar, Skin infection L08.9 [place] [address] 69436- 8060 Mar, [facility] [address] 080[address]8062 Mar, Skin lesion L98.9 [place] [address] 21684- 5707 Mar, Primary insomnia F51.01 and Anxiety, generalized F41.1 [place] [address] 28023- 2585 Mar, Osteoarthritis of spine with radiculopathy, lumbosacral region M47.27 [facility] [id number] [place] [address] 39936- 6131 Feb, [facility] [address] 35705- 8707 Feb, [facility] [address] 24064- 5540 Feb, Hypokalemia E87.6 [facility] [address] 27573- 1647 Feb, Intractable migraine without aura and without status migrainosus G43.019 and Other chest pain R07.89 [place] [address] 75982- 3521 Feb, [place] [address] 06257- 1187 Feb, Osteoarthritis of spine with radiculopathy, lumbosacral region M47.27 [facility] [id number] [place] [address] 47944- 4066 Feb, Hypokalemia E87.6 [place] [address] 53801- 4827 Feb, [place] [id number] [place] [address] 00178- 2065 Feb, Primary insomnia F51.01 and Anxiety, generalized F41.1 [facility] [id number] [place] [address] 27248 -3557 Feb, Acute suppurative otitis media of both ears without spontaneous rupture of tympanic membranes, recurrence not specified H66.003 [facility] [id number] [place] [address] 13074- 2318 Feb, [facility] [id number] [place] [address] 53102- 4705 Jan, Osteoarthritis of spine with radiculopathy, lumbosacral region M47.27 [facility] [id number] [place] [address] 11587- 0544 07 Jan, 2017 Primary insomnia F51.01 and Anxiety, generalized F41.1 [place] [address] 01104- 7528 02 Jan, 2017 Chronic pain due to trauma G89.21 ; Left otitis media with effusion H65.92 and Otalgia of left ear H92.02 [facility] [address] [address] Jan, Bilateral otitis media with effusion H65.93 [place] [address] 67885- 6038 Dec, [place] [address] 93365- 4302 Dec, Primary insomnia F51.01 and Anxiety, generalized F41.1 [address] [place] [address] 08652- 6190 Nov, [place] [address] 89563- 5111 Nov, [place] [address] 29385- 6193 Nov, Anxiety, generalized F41.1 [place] [address] 57475- 4807 Nov, Pernicious anemia D51.0 [place] [address] 08159- 6345 Nov, Primary insomnia F51.01 [place] [address] 26795- 9427 Nov, Encounter for well woman exam with routine gynecological exam Z01.419 ; Screening breast examination Z12.31 and Otalgia of left ear H92.02 [place] [id number] [place] [address] 14280- 3554 Oct, [facility] [id number] [place] [address] 12842 -6475 14 Oct, 2016 Insect bite (nonvenomous) of right upper arm, initial encounter S40.861A [place] [id number] [place] [address] 68479- 6622 11 Oct, 2016 Pernicious anemia D51.0 [place] [address] 78864- 1604 07 Oct, 2016 Anxiety, generalized F41.1 and Pernicious anemia D51.0 [place] [address] 84127- 6777 Oct, Encounter to establish care with new doctor Z76.89 ; Moderate episode of recurrent major depressive disorder F33.1 ; Empty sella syndrome E23.6 ; Seasonal allergic rhinitis, unspecified allergic rhinitis trigger J30.2 ; Essential hypertension I10 and Osteoarthritis of spine with radiculopathy, lumbosacral region M47.27 [place] [id number] [place] [address] 31251- 0082 Aug, [place] [address] 74042- 4244 Aug, [place] [id number] [place] [address] 40174- 0844 13 Aug, 2016 Anxiety, generalized F41.1 [place] [address] 23589- 0201 08 Aug, 2016 [place] [id number] [place] [address] 34741- 7411 07 Aug, 2016 Primary insomnia F51.01 ; Essential hypertension I10 ; Empty sella syndrome E23.6 and Chronic pain due to trauma G89.21 [place] [id number] [place] [address] 30169- 6737 July, Primary insomnia F51.01 [facility] [address] 99372 -3982 July, Seasonal allergic rhinitis, unspecified allergic rhinitis trigger J30.2 and Acute suppurative otitis media of right ear without spontaneous rupture of tympanic membrane, recurrence not specified H66.001 [facility] [id number] [place] [address] 82179 -8995 July, Acute suppurative otitis media of left ear without spontaneous rupture of tympanic membrane, recurrence not specified H66.002 [facility] [address] 47745- 6432 July, [facility] [address] 45577- 0301 July, Anxiety, generalized F41.1 [facility] [id number] [place] [address] 00777- 9806 Jun, [facility] [address] 34082- 8469 Jun, Primary insomnia F51.01 [facility] [address] 49541- 3924 Jun, Empty sella syndrome E23.6 ; Primary insomnia F51.01 and Hypokalemia E87.6 [facility] [id number] [place] [address] 47758- 0610 Jun, [facility] [id number] [place] [address] 78253- 5901 Jun, [facility] [id number] [place] [address] 10462- 2136 Jun, Empty sella syndrome E23.6 [place] [address] 26112- 9874 Jun, Anxiety, generalized F41.1 [facility] [id number] [place] [address] 41505- 7812 Jun, [facility] [address] 61732- 7000 Jun, Empty sella syndrome E23.6 [facility] [id number] [place] [address] 95754- 9566 May, [facility] [id number] [place] [address] 89594- 3744 May, [facility] [id number] [place] [address] 70606- 8316 May, Empty sella syndrome E23.6 [facility] [id number] [place] [address] 96389- 9361 May, [facility] [address] 25209- 8072 May, [facility] [id number] [place] [address] 87133- 3916 May, Primary insomnia F51.01 [facility] [address] 08606- 9953 May, [facility] [id number] [place] [address] 67208- 7992 May, Nausea R11.0 ; Other headache syndrome G44.89 and Malignant hypertension I10 [place] [id number] [place] [address] 51085- 1794 07 May, 2016 Anxiety, generalized F41.1 [facility] [id number] [place] [address] 14827- 7654 28 Apr, 2016 Major depressive disorder, recurrent episode, moderate F33.1 [facility] [id number] [place] [address] 20057- 9770 28 Apr, 2016 Moderate episode of recurrent major depressive disorder F33.1 [facility] [id number] [place] [address] 34142- 5870 27 Apr, 2016 Other chronic postprocedural pain G89.28 [facility] [address] 95695- 2642 15 Apr, 2016 Major depressive disorder, recurrent episode, moderate F33.1 [facility] [id number] [place] [address] 08706- 0330 07 Apr, 2016 Anxiety, generalized F41.1 [facility] [id number] [place] [address] 95244- 7161 03 Apr, 2016 [place] [address] 53065- 7492 Mar, Other chronic postprocedural pain G89.28 ; Status post craniotomy Z98.890 ; Encounter for drug screening Z02.83 and Hematuria R31.9 [place] [address] 84859- 2061 Mar, Major depressive disorder, recurrent episode, moderate F33.1 [place] [address] 26791- 7584 Mar, [place] [id number] [place] [address] 03823- 1293 Mar, Anxiety, generalized F41.1 [place] [address] 80512- 3441 Mar, Anxiety, generalized F41.1 and Pernicious anemia D51.0 [place] [id number] [place] [address] 26171- 9476 Mar, 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 [facility] 02/2017
--- OUTSIDE RECORDS SUMMARY | 2017-11-05 12:25 | XMS REPORT ---
Author Author CORRALOSBALDO New Organization [facility] Address [address] [place] [address] Care Team Providers Care Coding Compliance Auditor Name Role Phone OSBALDO CORRAL Unavailable PROBLEMS Type Condition ICD9-CM Code OGT79-SA Code Onset Dates Condition Status SNOMED Code Problem Primary insomnia F51.01 Active 8486367 Problem Major depressive disorder, recurrent episode, moderate F33.1 Active 385441584 Problem Anxiety, generalized F41.1 Active 07846145 Problem Vitamin B12 deficiency anemia due to intrinsic factor deficiency D51.0 Active 59504496 Problem Migraine without status migrainosus, not intractable, unspecified migraine type G43.909 Active 65390463 Problem Essential hypertension I10 Active 44994837 Problem Chronic pain due to trauma G89.21 Active 899628438 Problem Adjustment disorder with mixed anxiety and depressed mood F43.23 Active 06816463 Problem Seasonal allergic rhinitis, unspecified allergic rhinitis trigger J30.2 Active 311234541 Problem Empty sella syndrome E23.6 Active 585098802 Problem 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 Active 94088148 Problem Pernicious anemia D51.0 Active 31027313 Problem Hypokalemia E87.6 Active 71738664 Problem Other hyperlipidemia E78.4 Active 90572472 ALLERGIES No Information ENCOUNTERS Encounter Location Date Diagnosis [facility] [address] [facility] [id number] [address] Sep, [facility] [address] [facility] [id number] [place] [address]51- [address]396 Aug, Essential hypertension I10 ; 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 ; Empty sella syndrome E23.6 ; Pernicious anemia D51.0 ; Anxiety , generalized F41.1 ; Major depressive disorder, recurrent episode, moderate F33.1 ; Primary insomnia F51.01 ; Hypokalemia E87.6 and Chronic pain due to trauma G89.21 [facility] [address] [id number] [place] [address] 98737- 2375 Aug, [facility] [address] [address] Aug, Anxiety, generalized F41.1 and Osteoarthritis of spine with radiculopathy, lumbosacral region M47.27 [facility] [address] [address] Aug, [place] [address] [address] Aug, Primary insomnia F51.01 [place] [address] [address]- [address] July, Anxiety, generalized F41.1 and Osteoarthritis of spine with radiculopathy, lumbosacral region M47.27 [facility] [address] [address] July, Essential hypertension I10 [place] [address] [address]- [address] July, Major depressive disorder, recurrent episode, moderate F33.1 [facility] [address] [address]- 6395 July, Primary insomnia F51.01 [facility] [address] 7[address]- [address] Jun, Anxiety, generalized F41.1 and Osteoarthritis of spine with radiculopathy, lumbosacral region M47.27 [facility] [address] [address] Jun, Acute frontal sinusitis, recurrence not specified J01.10 ; Sinus pressure J34.89 ; Post-nasal drip R09.82 and Sore throat J02.9 [facility] [address] [address]- 0[address] Jun, Primary insomnia F51.01 [facility] [id number] [place] [address] 97019- 0029 May, Anxiety, generalized F41.1 and Osteoarthritis of spine with radiculopathy, lumbosacral region M47.27 [facility] [id number] [place] [address] 57169- 0114 May, Essential hypertension I10 ; 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 ; Empty sella syndrome E23.6 ; Pernicious anemia D51.0 ; Major depressive disorder, recurrent episode, moderate F33.1 ; Primary insomnia F51.01 ; Other hyperlipidemia E78.4 and Anxiety, generalized F41.1 [place] [address] [address]- [address] May, Vitamin B12 deficiency anemia due to intrinsic factor deficiency D51.0 and Pernicious anemia D51.0 [facility] [address] [address] May, Migraine without status migrainosus, not intractable, unspecified migraine type G43.909 [facility] [address] [address] May, [facility] [id number] [place] [address] 47979- 1734 May, [facility] [address] [address]- 3934 May, Osteoarthritis of spine with radiculopathy, lumbosacral region M47.27 and Primary insomnia F51.01 [facility] [address] 0[address]- 2446 May, Osteoarthritis of spine with radiculopathy, lumbosacral region M47.27 and Anxiety, generalized F41.1 [facility] [address] [address]- [address] May, [place] [address] [place] [address] Apr, [facility] [address] [address]- [address] Apr, [facility] [address] 230[address]- 67[address] 13 Apr, 2017 Anxiety, generalized F41.1 ; Major depressive disorder, recurrent episode, moderate F33.1 ; Moderate episode of recurrent major depressive disorder F33.1 and Adjustment disorder with mixed anxiety and depressed mood F43.23 [place] [address] [address]- [address] 13 Apr, 2017 Major depressive disorder, recurrent episode, moderate F33.1 ; Anxiety, generalized F41.1 ; Essential hypertension I10 ; Primary insomnia F51.01 and 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 [place] [address] 9[address]- 0861 09 Apr, 2017 Other chest pain R07.89 ; Sinus bradycardia R00.1 ; Essential hypertension I10 and Other hyperlipidemia E78.4 [place] [address] 6[address]- 2226 08 Apr, 2017 Primary insomnia F51.01 [facility] [address] [address]- 6[address] 06 Apr, 2017 [place] [address] [address]- 1315 Apr, Anxiety, generalized F41.1 [place] [id number] [place] [address] 34758- 7377 Apr, Osteoarthritis of spine with radiculopathy, lumbosacral region M47.27 [place] [id number] [place] [address] 33839- 1015 Mar, Intractable migraine without aura and without status migrainosus G43.019 and Dyshidrotic hand dermatitis L30.1 [facility] [address] [place] [address] Mar, Skin infection L08.9 [facility] [address] [address] Mar, [facility] [id number] [place] [address] 28236 -[address]262 Mar, Skin lesion L98.9 [facility] [address] 0[address]26- 450[address] 08 Mar, 2017 Primary insomnia F51.01 and Anxiety, generalized F41.1 [place] [address] 24[address]- [address]85 Mar, Osteoarthritis of spine with radiculopathy, lumbosacral region M47.27 [place] [id number] [place] [address] 59982- 9293 Feb, [place] [address] 47945- 3550 Feb, [facility] [id number] [place] [address] 84714- 4115 Feb, Hypokalemia E87.6 [place] [id number] [place] [address] 18798- 4038 Feb, Intractable migraine without aura and without status migrainosus G43.019 and Other chest pain R07.89 [place] [id number] [place] [address] 14057- 7167 14 Feb, 2017 [place] [id number] [place] [address] 54439- 8388 Feb, Osteoarthritis of spine with radiculopathy, lumbosacral region M47.27 [facility] [id number] [place] [address] 74178- 5586 13 Feb, 2017 Hypokalemia E87.6 [facility] [id number] [place] [address] 86879- 6738 Feb, [facility] [id number] [place] [address] 66784- 9386 Feb, Primary insomnia F51.01 and Anxiety, generalized F41.1 [facility] [id number] [place] [address] 64113 [address] Feb, Acute suppurative otitis media of both ears without spontaneous rupture of tympanic membranes, recurrence not specified H66.003 [facility] [address] [address]- 1833 Feb, [place] [address] [address]39- 6426 Jan, Osteoarthritis of spine with radiculopathy, lumbosacral region M47.27 [place] [id number] [place] [address] 86933- 5294 Jan, Primary insomnia F51.01 and Anxiety, generalized F41.1 [place] [id number] [place] [address] 82758- 6556 Jan, Chronic pain due to trauma G89.21 ; Left otitis media with effusion H65.92 and Otalgia of left ear H92.02 [facility] [id number] [place] [address] 95939 -7448 Jan, Bilateral otitis media with effusion H65.93 [place] [id number] [place] [address] 22686- 9628 Dec, [place] [id number] [place] [address] 75064- 6815 Dec, Primary insomnia F51.01 and Anxiety, generalized F41.1 [place] [address] 71761- 6065 Nov, [place] [id number] [place] [address] 59397- 8288 Nov, [place] [address] 98577- 2088 13 Nov, 2016 Anxiety, generalized F41.1 [place] [address] 37742- 4516 12 Nov, 2016 Pernicious anemia D51.0 [place] [address] 48966- 9153 11 Nov, 2016 Primary insomnia F51.01 [place] [address] 09606- 7778 Nov, Encounter for well woman exam with routine gynecological exam Z01.419 ; Screening breast examination Z12.31 and Otalgia of left ear H92.02 [place] [address] 03964- 5260 15 Oct, 2016 [facility] [address] [address] 14 Oct, 2016 Insect bite (nonvenomous) of right upper arm, initial encounter S40.861A [place] [address] [address]31- 4490 Oct, Pernicious anemia D51.0 [place] [address] 18379- 6271 07 Oct, 2016 Anxiety, generalized F41.1 and Pernicious anemia D51.0 [place] [address] 84795- 5283 Oct, Encounter to establish care with new doctor Z76.89 ; Moderate episode of recurrent major depressive disorder F33.1 ; Empty sella syndrome E23.6 ; Seasonal allergic rhinitis, unspecified allergic rhinitis trigger J30.2 ; Essential hypertension I10 and Osteoarthritis of spine with radiculopathy, lumbosacral region M47.27 [place] [id number] [place] [address] 89237- 9140 Aug, [place] [address] 13740- 0238 Aug, [facility] [id number] [place] [address] 14817- 9874 Aug, Anxiety, generalized F41.1 [place] [id number] [place] [address] 04391- 5521 Aug, [place] [id number] [place] [address] 13128- 1438 Aug, Primary insomnia F51.01 ; Essential hypertension I10 ; Empty sella syndrome E23.6 and Chronic pain due to trauma G89.21 [place] [id number] [place] [address] 44214- 1801 July, Primary insomnia F51.01 [facility] [id number] [place] [address] 68677 -9785 July, Seasonal allergic rhinitis, unspecified allergic rhinitis trigger J30.2 and Acute suppurative otitis media of right ear without spontaneous rupture of tympanic membrane, recurrence not specified H66.001 [facility] [id number] [place] [address] 28528 -2588 July, Acute suppurative otitis media of left ear without spontaneous rupture of tympanic membrane, recurrence not specified H66.002 [place] [id number] [place] [address] 30348- 8799 July, [place] [id number] [place] [address] 61940- 2943 July, Anxiety, generalized F41.1 [place] [id number] [place] [address] 35338- 0424 Jun, [place] [id number] [place] [address] 40511- 1737 Jun, Primary insomnia F51.01 [place] [id number] [place] [address] 91406- 8170 Jun, Empty sella syndrome E23.6 ; Primary insomnia F51.01 and Hypokalemia E87.6 [facility] [address] [place] [address] Jun, [facility] [id number] [place] [address] 31576- 6872 Jun, [facility] [id number] [place] [address] 84081- 2647 Jun, Empty sella syndrome E23.6 [facility] [id number] [place] [address] 47337- 4808 Jun, Anxiety, generalized F41.1 [facility] [id number] [place] [address] 36327- 8110 Jun, [facility] [id number] [place] [address] 25119- 0183 Jun, Empty sella syndrome E23.6 [facility] [id number] [place] [address] 61778- 8190 May, [facility] [id number] [place] [address] 66479- 8209 May, [facility] [id number] [place] [address] 35305- 8863 May, Empty sella syndrome E23.6 [facility] [id number] [place] [address] 69776- 7229 May, [facility] [id number] [place] [address] 50695- 4676 May, [facility] [address] [place] [address] 88806- 5177 May, Primary insomnia F51.01 [facility] [id number] [place] [address] 68044- 3523 May, [facility] [id number] [place] [address] 25907- 7086 May, Nausea R11.0 ; Other headache syndrome G44.89 and Malignant hypertension I10 [facility] [id number] [place] [address] 63084- 5705 07 May, 2016 Anxiety, generalized F41.1 [facility] [id number] [place] [address] 32577- 5314 28 Apr, 2016 Major depressive disorder, recurrent episode, moderate F33.1 [facility] [id number] [place] [address] 54702- 9880 Apr, Moderate episode of recurrent major depressive disorder F33.1 [facility] [id number] [place] [address] 26941- 2959 27 Apr, 2016 Other chronic postprocedural pain G89.28 [facility] [id number] [place] [address] 01121- 2410 15 Apr, 2016 Major depressive disorder, recurrent episode, moderate F33.1 [place] [id number] [place] [address] 25318- 3571 Apr, Anxiety, generalized F41.1 [facility] [id number] [place] [address] 03656- 3216 Apr, [facility] [id number] [place] [address] 48285- 0319 Mar, Other chronic postprocedural pain G89.28 ; Status post craniotomy Z98.890 ; Encounter for drug screening Z02.83 and Hematuria R31.9 [facility] [address] [place] [address] 30841- 6239 Mar, Major depressive disorder, recurrent episode, moderate F33.1 [facility] [id number] [place] [address] 84565- 2421 Mar, [facility] [address] [place] [address] 19461- 3574 Mar, Anxiety, generalized F41.1 [facility] [id number] [place] [address] 47749- 8356 Mar, Anxiety, generalized F41.1 and Pernicious anemia D51.0 [place] [address] [place] [address] 38410- 3990 Mar, 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 and Status post craniotomy Z98.890 [place] [address] [address] 3090 Mar, Primary insomnia F51.01 [place] [address] [place] [address] 87671- 9071 Feb, [place] [id number] [place] [address] 74606- 5902 Feb, Encounter to establish care Z76.89 ; [...] 1 ML INTRAMUSCULARLY ONCE MONTHLY 28 Active BD Syringe/Needle 23GX1 For use with injectable B12 Active RESULTS No Results PROCEDURES No Known procedures INSTRUCTIONS MEDICATIONS ADMINISTERED No Known Medications MEDICAL (GENERAL) HISTORY Type Description Date Medical History HTN Medical History Hypokalemia since cranioplasty in may 2015 Medical History Insomnia longstanding Ambien works at [employer] Medical History Hypercholesterolemia Medical History prenicious anemia [...] Hospitalization History surgery only Hospitalization History . [place] 02/2017"
--- OUTSIDE RECORDS SUMMARY | 2017-11-05 12:25 | XMS REPORT ---
Author Author CORRALOSBALDO New Organization [facility] Address [address] [place] [address] Care Team Providers Care Advice Nurse Name Role Phone OSBALDO CORRAL Unavailable PROBLEMS Type Condition ICD9-CM Code IUD73-IW Code Onset Dates Condition Status SNOMED Code Problem Primary insomnia F51.01 Active 5230486 Problem Major depressive disorder, recurrent episode, moderate F33.1 Active 958582240 Problem Anxiety, generalized F41.1 Active 98111302 Problem Vitamin B12 deficiency anemia due to intrinsic factor deficiency D51.0 Active 83768247 Problem Migraine without status migrainosus, not intractable, unspecified migraine type G43.909 Active 90831190 Problem Essential hypertension I10 Active 02392704 Problem Chronic pain due to trauma G89.21 Active 637250716 Problem Adjustment disorder with mixed anxiety and depressed mood F43.23 Active 36924426 Problem Seasonal allergic rhinitis, unspecified allergic rhinitis trigger J30.2 Active 109718834 Problem Empty sella syndrome E23.6 Active 145925368 Problem 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 Active 69536407 Problem Pernicious anemia D51.0 Active 62995872 Problem Hypokalemia E87.6 Active 41025108 Problem Other hyperlipidemia E78.4 Active 05705081 ALLERGIES No Information ENCOUNTERS Encounter Location Date Diagnosis [facility] [id number] [address] Aug, [facility] [address] [address] July, Anxiety, generalized F41.1 and Osteoarthritis of spine with radiculopathy, lumbosacral region M47.27 [facility] [id number] [address] July, Essential hypertension I10 [facility] [id number] [place] [address] 37986- 0339 July, Major depressive disorder, recurrent episode, moderate F33.1 [place] [address] [address]- [address]25 July, Primary insomnia F51.01 [place] [id number] [place] [address] 17956- 9251 Jun, Anxiety, generalized F41.1 and Osteoarthritis of spine with radiculopathy, lumbosacral region M47.27 [facility] [id number] [place] [address] 44509 -1070 Jun, Acute frontal sinusitis, recurrence not specified J01.10 ; Sinus pressure J34.89 ; Post-nasal drip R09.82 and Sore throat J02.9 [place] [id number] [place] [address] 53502- 7159 Jun, Primary insomnia F51.01 [place] [address] 56676- 9124 May, Anxiety, generalized F41.1 and Osteoarthritis of spine with radiculopathy, lumbosacral region M47.27 [place] [id number] [place] [address] 50710- 6686 May, Essential hypertension I10 ; 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 ; Empty sella syndrome E23.6 ; Pernicious anemia D51.0 ; Major depressive disorder, recurrent episode, moderate F33.1 ; Primary insomnia F51.01 ; Other hyperlipidemia E78.4 and Anxiety, generalized F41.1 [place] [id number] [place] [address] 75229- 9876 May, Vitamin B12 deficiency anemia due to intrinsic factor deficiency D51.0 and Pernicious anemia D51.0 [facility] [id number] [place] [address] 06101 -9854 May, Migraine without status migrainosus, not intractable, unspecified migraine type G43.909 [place] [id number] [place] [address] 95467- 2023 May, [place] [id number] [place] [address] 87261- 4589 May, [place] [id number] [place] [address] 08935- 1932 May, Osteoarthritis of spine with radiculopathy, lumbosacral region M47.27 and Primary insomnia F51.01 [id number] [place] [address] 41376- 5170 May, Osteoarthritis of spine with radiculopathy, lumbosacral region M47.27 and Anxiety, generalized F41.1 [place] [id number] [place] [address] 89015- 4498 May, [place] [id number] [place] [address] 59555- 5248 Apr, [place] [id number] [place] [address] 41319- 8747 Apr, [place] [id number] [place] [address] 06299- 2172 13 Apr, 2017 Anxiety, generalized F41.1 ; Major depressive disorder, recurrent episode, moderate F33.1 ; Moderate episode of recurrent major depressive disorder F33.1 and Adjustment disorder with mixed anxiety and depressed mood F43.23 [place] [id number] [place] [address] 84264- 5989 Apr, Major depressive disorder, recurrent episode, moderate F33.1 ; Anxiety, generalized F41.1 ; Essential hypertension I10 ; Primary insomnia F51.01 and 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 [id number] [place] [address] 07669- 7473 09 Apr, 2017 Other chest pain R07.89 ; Sinus bradycardia R00.1 ; Essential hypertension I10 and Other hyperlipidemia E78.[id number] [place] [address] 64948- 5672 08 Apr, 2017 Primary insomnia F51.01 [place] [address] 11865- 6741 Apr, [place] [address] 36982- 2072 Apr, Anxiety, generalized F41.1 [place] [address] 95325- 9214 Apr, Osteoarthritis of spine with radiculopathy, lumbosacral region M47.27 [place] [address] 39933- 7362 Mar, Intractable migraine without aura and without status migrainosus G43.019 and Dyshidrotic hand dermatitis L30.1 [facility] [address] 38644 -3173 Mar, Skin infection L08.9 [place] [address] 42590- 7016 Mar, [facility] [address] 56911 -7562 Mar, Skin lesion L98.9 [place] [address] 40220- 3616 Mar, Primary insomnia F51.01 and Anxiety, generalized F41.1 [place] [id number] [place] [address] 19310- 2433 Mar, Osteoarthritis of spine with radiculopathy, lumbosacral region M47.27 [place] [address] 25858- 1693 Feb, [place] [address] 76295- 6978 Feb, [place] [address] [place] [address] 2498 Feb, Hypokalemia E87.6 [facility] [address] 53913- 5486 Feb, Intractable migraine without aura and without status migrainosus G43.019 and Other chest pain R07.89 [facility] [address] 64070- 6924 Feb, [facility] [address] 25672- 0891 Feb, Osteoarthritis of spine with radiculopathy, lumbosacral region M47.27 [place] [address] 13747- 0546 Feb, Hypokalemia E87.6 [place] [address] 72634- 2038 Feb, [place] [address] 76215- 1447 Feb, Primary insomnia F51.01 and Anxiety, generalized F41.1 [facility] [id number] [place] [address] 28044 -2564 Feb, Acute suppurative otitis media of both ears without spontaneous rupture of tympanic membranes, recurrence not specified H66.003 [facility] [id number] [place] [address] 71883- 3031 Feb, [facility] [address] 02401- 6162 Jan, Osteoarthritis of spine with radiculopathy, lumbosacral region M47.27 [facility] [address] 55869- 2936 Jan, Primary insomnia F51.01 and Anxiety, generalized F41.1 [facility] [id number] [place] [address] 34111- 4991 Jan, Chronic pain due to trauma G89.21 ; Left otitis media with effusion H65.92 and Otalgia of left ear H92.02 [facility] [address] 36868 -7071 Jan, Bilateral otitis media with effusion H65.93 [place] [address] 29230- 4812 Dec, [place] [address] 01818- 8452 Dec, Primary insomnia F51.01 and Anxiety, generalized F41.1 [place] [address] 57332- 3849 Nov, [place] [address] 11691- 8858 Nov, [place] [address] 69166- 5906 Nov, Anxiety, generalized F41.1 [place] [address] 71966- 0381 Nov, Pernicious anemia D51.0 [place] [address] 69312- 7369 Nov, Primary insomnia F51.01 [place] [address] 69964- 3481 Nov, Encounter for well woman exam with routine gynecological exam Z01.419 ; Screening breast examination Z12.31 and Otalgia of left ear H92.02 [place] [address] 28049- 3617 Oct, [facility] [address] 04524 -0577 Oct, Insect bite (nonvenomous) of right upper arm, initial encounter S40.861A [place] [address]- 2546 Oct, Pernicious anemia D51.0 [place] [id number] [place] [address] 72595- 7234 Oct, Anxiety, generalized F41.1 and Pernicious anemia D51.0 [place] [id number] [place] [address] 16500- 5839 Oct, Encounter to establish care with new doctor Z76.89 ; Moderate episode of recurrent major depressive disorder F33.1 ; Empty sella syndrome E23.6 ; Seasonal allergic rhinitis, unspecified allergic rhinitis trigger J30.2 ; Essential hypertension I10 and Osteoarthritis of spine with radiculopathy, lumbosacral region M47.27 [place] [id number] [place] [address] 71057- 6204 Aug, [place] [address] 19389- 5342 Aug, [place] [id number] [place] [address] 59444- 3311 13 Aug, 2016 Anxiety, generalized F41.1 [place] [address] 38710- 5786 08 Aug, 2016 [place] [id number] [place] [address] 44134- 2524 07 Aug, 2016 Primary insomnia F51.01 ; Essential hypertension I10 ; Empty sella syndrome E23.6 and Chronic pain due to trauma G89.21 [place] [id number] [place] [address] 65437- 9361 July, Primary insomnia F51.01 [facility] [address] 45820 -5618 July, Seasonal allergic rhinitis, unspecified allergic rhinitis trigger J30.2 and Acute suppurative otitis media of right ear without spontaneous rupture of tympanic membrane, recurrence not specified H66.001 [facility] [id number] [place] [address] 99448 -7832 July, Acute suppurative otitis media of left ear without spontaneous rupture of tympanic membrane, recurrence not specified H66.002 [facility] [address] 36965- 2780 July, [facility] [id number] [place] [address] 33018- 6152 July, Anxiety, generalized F41.1 [facility] [address] 75902- 0395 Jun, [facility] [address] 74712- 8735 Jun, Primary insomnia F51.01 [facility] [address] 75562- 2298 Jun, Empty sella syndrome E23.6 ; Primary insomnia F51.01 and Hypokalemia E87.6 [facility] [id number] [place] [address] 16290- 8849 Jun, [facility] [address] 34807- 5784 Jun, [facility] [address] 07069- 5321 Jun, Empty sella syndrome E23.6 [facility] [id number] [place] [address] 66340- 3042 Jun, Anxiety, generalized F41.1 [facility] [id number] [place] [address] 62165- 8239 Jun, [facility] [address] 39438- 3192 Jun, Empty sella syndrome E23.6 [facility] [address] 88972- 9942 May, [facility] [address] 97161- 8091 31 May, 2016 [facility] [id number] [place] [address] 23086- 7346 30 May, 2016 Empty sella syndrome E23.6 [facility] [id number] [place] [address] 98388- 3376 May, [facility] [address] 15671- 8242 May, [facility] [id number] [place] [address] 86519- 8067 May, Primary insomnia F51.01 [place] [address] 52367- 3825 May, [facility] [id number] [place] [address] 57665- 6878 May, Nausea R11.0 ; Other headache syndrome G44.89 and Malignant hypertension I10 [facility] [id number] [place] [address] 95944- 9378 07 May, 2016 Anxiety, generalized F41.1 [place] [id number] [place] [address] 02627- 9080 28 Apr, 2016 Major depressive disorder, recurrent episode, moderate F33.1 [place] [id number] [place] [address] 52849- 1507 28 Apr, 2016 Moderate episode of recurrent major depressive disorder F33.1 [facility] [id number] [place] [address] 94312- 4431 27 Apr, 2016 Other chronic postprocedural pain G89.28 [facility] [address] 19196- 0230 15 Apr, 2016 Major depressive disorder, recurrent episode, moderate F33.1 [facility] [id number] [place] [address] 88664- 0258 07 Apr, 2016 Anxiety, generalized F41.1 [facility] [id number] [place] [address] 88992- 2315 03 Apr, 2016 [place] [address] 00640- 9928 Mar, Other chronic postprocedural pain G89.28 ; Status post craniotomy Z98.890 ; Encounter for drug screening Z02.83 and Hematuria R31.9 [place] [address] 63672- 2265 Mar, Major depressive disorder, recurrent episode, moderate F33.1 [place] [address] 33212- 6328 Mar, [place] [address] 38853- 4597 Mar, Anxiety, generalized F41.1 [place] [address] 53277- 9094 Mar, Anxiety, generalized F41.1 and Pernicious anemia D51.0 [place] [id number] [place] [address] 07608- 2967 Mar, 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
--- OUTSIDE RECORDS SUMMARY | 2017-11-05 12:26 | XMS REPORT ---
Author Author OSBALDO CORRAL Organization [facility] Address [address] [place] [address] Care Team Providers Care Firer Locomotive Name Role Phone OSBALDO CORRAL Unavailable PROBLEMS Type Condition ICD9-CM Code YHC67-MA Code Onset Dates Condition Status SNOMED Code Problem Primary insomnia F51.01 Active 8564928 Problem Major depressive disorder, recurrent episode, moderate F33.1 Active 035785111 Problem Anxiety, generalized F41.1 Active 56735417 Problem Vitamin B12 deficiency anemia due to intrinsic factor deficiency D51.0 Active 53383021 Problem Migraine without status migrainosus, not intractable, unspecified migraine type G43.909 Active 03404924 Problem Essential hypertension I10 Active 24220717 Problem Chronic pain due to trauma G89.21 Active 810701356 Problem Adjustment disorder with mixed anxiety and depressed mood F43.23 Active 66727917 Problem Seasonal allergic rhinitis, unspecified allergic rhinitis trigger J30.2 Active 947098283 Problem Empty sella syndrome E23.6 Active 548413601 Problem 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 Active 89732842 Problem Pernicious anemia D51.0 Active 14834965 Problem Hypokalemia E87.6 Active 41771830 Problem Other hyperlipidemia E78.4 Active 03575975 ALLERGIES No Information ENCOUNTERS Encounter Location Date Diagnosis [facility] [id number] [address] Aug, [facility] [id number] [address] Aug, [facility] [id number] [place] [address] 40083- 5275 Aug, Primary insomnia F51.01 [facility] [id number] [address] July, Anxiety, generalized F41.1 and Osteoarthritis of spine with radiculopathy, lumbosacral region M47.27 [facility] [id number] [place] [address] 43274- 7510 July, Essential hypertension I10 [place] [id number] [place] [address] 00506- 0431 July, Major depressive disorder, recurrent episode, moderate F33.1 [place] [address] 73447- 2314 July, Primary insomnia F51.01 [place] [address] 35079- 3703 Jun, Anxiety, generalized F41.1 and Osteoarthritis of spine with radiculopathy, lumbosacral region M47.[address] [facility] [id number] [place] [address]4717 Jun, Acute frontal sinusitis, recurrence not specified J01.10 ; Sinus pressure J34.89 ; Post-nasal drip R09.82 and Sore throat J02.9 [place] [address] 54224- 9833 Jun, Primary insomnia F51.01 [place] [id number] [place] [address] 37584- 7965 May, Anxiety, generalized F41.1 and Osteoarthritis of spine with radiculopathy, lumbosacral region M47.27 [facility] [id number] [place] [address] 80519- 9394 May, Essential hypertension I10 ; 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 [id number] [place] [address] 47312 -3669 May, Migraine without status migrainosus, not intractable, unspecified migraine type G43.909 [facility] [id number] [place] [address] 16503- 2605 May, [facility] [address] 23597- 9836 May, [place] [address] 59202- 8286 09 May, 2017 Osteoarthritis of spine with radiculopathy, lumbosacral region M47.27 and Primary insomnia F51.01 [facility] [address] 64791- 7997 02 May, 2017 Osteoarthritis of spine with radiculopathy, lumbosacral region M47.27 and Anxiety, generalized F41.1 [place] [address] 69943- 8305 02 May, 2017 [place] [address] 01352- 3794 28 Apr, 2017 [place] [address] 65855- 3569 19 Apr, 2017 [place] [address] 19923- 5878 13 Apr, 2017 Anxiety, generalized F41.1 ; Major depressive disorder, recurrent episode, moderate F33.1 ; Moderate episode of recurrent major depressive disorder F33.1 and Adjustment disorder with mixed anxiety and depressed mood F43.23 [place] [id number] [place] [address] 83820- 0562 13 Apr, 2017 Major depressive disorder, recurrent episode, moderate F33.1 ; Anxiety, generalized F41.1 ; Essential hypertension I10 ; Primary insomnia F51.01 and 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 [place] [id number] [place] [address] 81101- 5413 09 Apr, 2017 Other chest pain R07.89 ; Sinus bradycardia R00.1 ; Essential hypertension I10 and Other hyperlipidemia E78.4 [place] [address] 61179- 0088 08 Apr, 2017 Primary insomnia F51.01 [place] [address] 08412- 4180 06 Apr, 2017 [place] [address] 69126- 8065 Apr, Anxiety, generalized F41.1 [place] [address] 63930- 0544 Apr, Osteoarthritis of spine with radiculopathy, lumbosacral region M47.27 [place] [address] 96002- 4203 Mar, Intractable migraine without aura and without status migrainosus G43.019 and Dyshidrotic hand dermatitis L30.1 [facility] [place] 6[address]23 -3600 Mar, Skin infection L08.9 [place] [address] 42930- 6391 Mar, [facility] [address] 89511 -5033 Mar, Skin lesion L98.9 [place] [address] 08719- 5565 Mar, Primary insomnia F51.01 and Anxiety, generalized F41.1 [place] [address] 97354- 2862 Mar, Osteoarthritis of spine with radiculopathy, lumbosacral region M47.27 [place] [id number] [place] [address] 01574- 5217 Feb, [facility] [address] 05706- 4435 Feb, [facility] [address] 42383- 1018 Feb, Hypokalemia E87.6 [facility] [address] 77893- 6904 Feb, Intractable migraine without aura and without status migrainosus G43.019 and Other chest pain R07.89 [place] [address] 76362- 5521 Feb, [place] [address] 77281- 1464 Feb, Osteoarthritis of spine with radiculopathy, lumbosacral region M47.27 [place] [id number] [place] [address] 06041- 7070 Feb, Hypokalemia E87.6 [place] [address] 82513- 2854 Feb, [place] [id number] [place] [address] 51954- 6294 Feb, Primary insomnia F51.01 and Anxiety, generalized F41.1 [facility] [id number] [place] [address] 60367 -6612 Feb, Acute suppurative otitis media of both ears without spontaneous rupture of tympanic membranes, recurrence not specified H66.003 [facility] [id number] [place] [address] 13476- 7417 Feb, [facility] [id number] [place] [address] 95614- 4236 Jan, Osteoarthritis of spine with radiculopathy, lumbosacral region M47.27 [facility] [id number] [place] [address] 56800- 7941 07 Jan, 2017 Primary insomnia F51.01 and Anxiety, generalized F41.1 [place] [address] 05170- 9943 02 Jan, 2017 Chronic pain due to trauma G89.21 ; Left otitis media with effusion H65.92 and Otalgia of left ear H92.02 [facility] [address] 17097 -9760 Jan, Bilateral otitis media with effusion H65.93 [place] [address] 87594- 9549 Dec, [place] [address] 89885- 1431 Dec, Primary insomnia F51.01 and Anxiety, generalized F41.1 [place] [address] 03618- 9671 Nov, [place] [address] 02594- 2716 Nov, [place] [address] 71018- 6242 Nov, Anxiety, generalized F41.1 [place] [address] 90255- 9919 Nov, Pernicious anemia D51.0 [place] [address] 52664- 8525 Nov, Primary insomnia F51.01 [place] [address] 28210- 0302 Nov, Encounter for well woman exam with routine gynecological exam Z01.419 ; Screening breast examination Z12.31 and Otalgia of left ear H92.02 [place] [id number] [place] [address] 75375- 3186 Oct, [facility] [id number] [place] [address] 33679 -3046 14 Oct, 2016 Insect bite (nonvenomous) of right upper arm, initial encounter S40.861A [place] [id number] [place] [address] 40966- 7810 11 Oct, 2016 Pernicious anemia D51.0 [place] [address] 93722- 6572 07 Oct, 2016 Anxiety, generalized F41.1 and Pernicious anemia D51.0 [place] [address] 76164- 3772 Oct, Encounter to establish care with new doctor Z76.89 ; Moderate episode of recurrent major depressive disorder F33.1 ; Empty sella syndrome E23.6 ; Seasonal allergic rhinitis, unspecified allergic rhinitis trigger J30.2 ; Essential hypertension I10 and Osteoarthritis of spine with radiculopathy, lumbosacral region M47.27 [place] [id number] [place] [address] 59514- 1221 Aug, [place] [address] 11130- 1829 Aug, [place] [id number] [place] [address] 90193- 3425 13 Aug, 2016 Anxiety, generalized F41.1 [place] [address] 48892- 2057 08 Aug, 2016 [place] [id number] [place] [address] 85537- 1961 07 Aug, 2016 Primary insomnia F51.01 ; Essential hypertension I10 ; Empty sella syndrome E23.6 and Chronic pain due to trauma G89.21 [place] [id number] [place] [address] 05368- 2943 July, Primary insomnia F51.01 [facility] [address] 44071 -4075 July, Seasonal allergic rhinitis, unspecified allergic rhinitis trigger J30.2 and Acute suppurative otitis media of right ear without spontaneous rupture of tympanic membrane, recurrence not specified H66.001 [facility] [facility] [id number] [place] [address] 37236 -9480 July, Acute suppurative otitis media of left ear without spontaneous rupture of tympanic membrane, recurrence not specified H66.002 [facility] [address] 09375- 3007 July, [facility] [address] 40744- 5443 July, Anxiety, generalized F41.1 [facility] [id number] [place] [address] 14646- 5792 Jun, [facility] [address] 38736- 4314 Jun, Primary insomnia F51.01 [facility] [address] 25804- 0796 Jun, Empty sella syndrome E23.6 ; Primary insomnia F51.01 and Hypokalemia E87.6 [facility] [id number] [place] [address] 05432- 1744 Jun, [facility] [id number] [place] [address] 84102- 7926 Jun, [facility] [id number] [place] [address] 28931- 5929 Jun, Empty sella syndrome E23.6 [place] [address] 87633- 3754 Jun, Anxiety, generalized F41.1 [facility] [id number] [place] [address] 18747- 1656 Jun, [facility] [address] 54152- 0272 Jun, Empty sella syndrome E23.6 [facility] [id number] [place] [address] 59918- 8137 May, [facility] [id number] [place] [address] 56540- 3335 May, [facility] [id number] [place] [address] 17206- 0579 May, Empty sella syndrome E23.6 [facility] [id number] [place] [address] 40530- 1708 May, [facility] [address] 28651- 4755 May, [facility] [id number] [place] [address] 82377- 8935 May, Primary insomnia F51.01 [facility] [address] 90480- 6740 May, [facility] [id number] [place] [address] 34311- 7270 May, Nausea R11.0 ; Other headache syndrome G44.89 and Malignant hypertension I10 [place] [id number] [place] [address] 38623- 4455 07 May, 2016 Anxiety, generalized F41.1 [facility] [id number] [place] [address] 22153- 9570 28 Apr, 2016 Major depressive disorder, recurrent episode, moderate F33.1 [facility] [id number] [place] [address] 13013- 0742 28 Apr, 2016 Moderate episode of recurrent major depressive disorder F33.1 [facility] [id number] [place] [address] 46356- 3828 27 Apr, 2016 Other chronic postprocedural pain G89.28 [facility] [address] 75497- 6965 15 Apr, 2016 Major depressive disorder, recurrent episode, moderate F33.1 [facility] [id number] [place] [address] 33246- 7795 07 Apr, 2016 Anxiety, generalized F41.1 [facility] [id number] [place] [address] 43018- 4775 03 Apr, 2016 [place] [address] 06438- 3803 Mar, Other chronic postprocedural pain G89.28 ; Status post craniotomy Z98.890 ; Encounter for drug screening Z02.83 and Hematuria R31.9 [place] [address] 14499- 6833 Mar, Major depressive disorder, recurrent episode, moderate F33.1 [place] [address] 93861- 4727 Mar, [place] [id number] [place] [address] 06381- 5390 Mar, Anxiety, generalized F41.1 [place] [address] 74243- 0647 Mar, Anxiety, generalized F41.1 and Pernicious anemia D51.0 [place] [id number] [place] [address] 19700- 2489 Mar, 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 and Status post craniotomy Z98.890 [place] [id number] [place] [address] 54469- 7150 Mar, Primary insomnia F51.01 [place] [address] 74151- 4923 Feb, [place] [id number] [place] [address] 43210- 7616 Feb, Encounter to establish care Z76.89 ; Status post craniotomy Z98.890 ; 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
--- OUTSIDE RECORDS SUMMARY | 2017-11-05 12:26 | XMS REPORT ---
Author Author OSBALDO CORRAL Organization [facility] Address [address] [place] [address] Care Team Providers Care Packaging Technician Name Role Phone OSBALDO CORRAL Unavailable PROBLEMS Type Condition ICD9-CM Code MRC34-WB Code Onset Dates Condition Status SNOMED Code Problem Primary insomnia F51.01 Active 4826718 Problem Major depressive disorder, recurrent episode, moderate F33.1 Active 679243987 Problem Anxiety, generalized F41.1 Active 79742661 Problem Vitamin B12 deficiency anemia due to intrinsic factor deficiency D51.0 Active 26562804 Problem Migraine without status migrainosus, not intractable, unspecified migraine type G43.909 Active 67357852 Problem Essential hypertension I10 Active 10789105 Problem Chronic pain due to trauma G89.21 Active 846210014 Problem Adjustment disorder with mixed anxiety and depressed mood F43.23 Active 92175456 Problem Seasonal allergic rhinitis, unspecified allergic rhinitis trigger J30.2 Active 906762892 Problem Empty sella syndrome E23.6 Active 792188539 Problem 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 Active 08208286 Problem Pernicious anemia D51.0 Active 24861235 Problem Hypokalemia E87.6 Active 35813432 Problem Other hyperlipidemia E78.4 Active 79701798 ALLERGIES No Information ENCOUNTERS Encounter Location Date Diagnosis [facility] [id number] [address] Aug, [facility] [address] [address] Aug, Primary insomnia F51.01 [facility] [address] [address] July, Anxiety, generalized F41.1 and Osteoarthritis of spine with radiculopathy, lumbosacral region M47.27 [facility] [address] [place] [id number] [place] [address]19[address] 6598 July, Essential hypertension I10 [place] [address] [address] July, Major depressive disorder, recurrent episode, moderate F33.1 [place] [address] [place] [id number] [place] [address]238- 6381 July, Primary insomnia F51.01 [place] [address] [address] Jun, Anxiety, generalized F41.1 and Osteoarthritis of spine with radiculopathy, lumbosacral region M47.27 [facility] [place] [address] [address] [id number] [place] [address] Jun, Acute frontal sinusitis, recurrence not specified J01.10 ; Sinus pressure J34.89 ; Post-nasal drip R09.82 and Sore throat J02.9 [place] [address] [place] [id number] [place] [address] 83706- 0192 Jun, Primary insomnia F51.01 [place] [address] [place] [id number] [place] [address] 23669- 6911 May, Anxiety, generalized F41.1 and Osteoarthritis of spine with radiculopathy, lumbosacral region M47.27 [place] [address] [place] [id number] [place] [address] 97663- 8593 May, Essential hypertension I10 ; 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 ; Empty sella syndrome E23.6 ; Pernicious anemia D51.0 ; Major depressive disorder, recurrent episode, moderate F33.1 ; Primary insomnia F51.01 ; Other hyperlipidemia E78.4 and Anxiety, generalized F41.1 [place] [address] [place] [id number] [place] [address] 77533- 8053 May, Vitamin B12 deficiency anemia due to intrinsic factor deficiency D51.0 and Pernicious anemia D51.0 [facility] [address] [place] [id number] [place] [address]70 [address] May, Migraine without status migrainosus, not intractable, unspecified migraine type G43.909 [facility] [address] [place] [id number] [place] [address] 31809- 6592 May, [facility] [address] [address]- [address] May, [place] [address] [address]- [address]97 May, Osteoarthritis of spine with radiculopathy, lumbosacral region M47.27 and Primary insomnia F51.01 [place] [address] [address]- [address]359 May, Osteoarthritis of spine with radiculopathy, lumbosacral region M47.27 and Anxiety, generalized F41.1 [place] [address] 97153- 7500 May, [place] [address] 323[address]- 9408 28 Apr, 2017 [place] [address] 6[address]- 2686 Apr, [place] [address] 68397- 79[address] 13 Apr, 2017 Anxiety, generalized F41.1 ; Major depressive disorder, recurrent episode, moderate F33.1 ; Moderate episode of recurrent major depressive disorder F33.1 and Adjustment disorder with mixed anxiety and depressed mood F43.23 [place] [address] 34350- 8208 13 Apr, 2017 Major depressive disorder, recurrent episode, moderate F33.1 ; Anxiety, generalized F41.1 ; Essential hypertension I10 ; Primary insomnia F51.01 and 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 [place] [address] 76564- 2589 09 Apr, 2017 Other chest pain R07.89 ; Sinus bradycardia R00.1 ; Essential hypertension I10 and Other hyperlipidemia E78.4 [place] [address] 20962- 8985 Apr, Primary insomnia F51.01 [place] [address] 30621- 0555 Apr, [place] [address] 75936- 2877 Apr, Anxiety, generalized F41.1 [place] [address] 36883- 9687 Apr, Osteoarthritis of spine with radiculopathy, lumbosacral region M47.27 [place] [address] 27729- 5877 Mar, Intractable migraine without aura and without status migrainosus G43.019 and Dyshidrotic hand dermatitis L30.1 [facility] [place] [address] [address]479 Mar, Skin infection L08.9 [place] [address] 14859- 6060 Mar, [facility] [place] [address] [address] Mar, Skin lesion L98.9 [place] [address] 49580- 3843 Mar, Primary insomnia F51.01 and Anxiety, generalized F41.1 [place] [address] 06658- 5407 Mar, Osteoarthritis of spine with radiculopathy, lumbosacral region M47.27 [place] [address] 91920- 6714 Feb, [place] [address] [place] [id number] [place] [address] 17053- 2445 Feb, [facility] [address] [address] Feb, Hypokalemia E87.6 [facility] [address] [place] [id number] [place] [address] 45262- 0808 Feb, Intractable migraine without aura and without status migrainosus G43.019 and Other chest pain R07.89 [facility] [address] [place] [id number] [place] [address] 29984- 1369 Feb, [place] [address] 83109- 1661 Feb, Osteoarthritis of spine with radiculopathy, lumbosacral region M47.27 [place] [address] [place] [id number] [place] [address] 73784- 8585 Feb, Hypokalemia E87.6 [facility] [address] [place] [id number] [place] [address] 78636- 3286 Feb, [place] [address] 59858- 4915 Feb, Primary insomnia F51.01 and Anxiety, generalized F41.1 [facility] [address] [place] [address] [id number] [place] [address] 48078 -7695 Feb, Acute suppurative otitis media of both ears without spontaneous rupture of tympanic membranes, recurrence not specified H66.003 [facility] [address] [place] [id number] [place] [address] 02911- 4368 Feb, [place] [address] 49100- 8481 Jan, Osteoarthritis of spine with radiculopathy, lumbosacral region M47.27 [facility] [address] [place] [id number] [place] [address] 95628- 6460 Jan, Primary insomnia F51.01 and Anxiety, generalized F41.1 [place] [address] [place] [id number] [place] [address] 21615- 4823 02 Jan, 2017 Chronic pain due to trauma G89.21 ; Left otitis media with effusion H65.92 and Otalgia of left ear H92.02 [facility] [address] 40[address] Jan, Bilateral otitis media with effusion H65.93 [place] [address] 26108- 5658 Dec, [place] [address] [address] 5347 Dec, Primary insomnia F51.01 and Anxiety, generalized F41.1 [place] [address] 70022- 5717 Nov, [place] [address] 09998- 0673 Nov, [place] [address] 42754- 6401 Nov, Anxiety, generalized F41.1 [place] [address] 87542- 0367 Nov, Pernicious anemia D51.0 [place] [address] 53070- 0947 Nov, Primary insomnia F51.01 [place] [address] 87186- 3242 Nov, Encounter for well woman exam with routine gynecological exam Z01.419 ; Screening breast examination Z12.31 and Otalgia of left ear H92.02 [place] [address] [place] [id number] [place] [address] 47423- 0733 Oct, [facility] [address] [address] Oct, Insect bite (nonvenomous) of right upper arm, initial encounter S40.861A [facility] [address] 23106- 9072 Oct, Pernicious anemia D51.0 [place] [address] 48719- 9714 Oct, Anxiety, generalized F41.1 and Pernicious anemia D51.0 [place] [address] 82841- 1599 Oct, Encounter to establish care with new doctor Z76.89 ; Moderate episode of recurrent major depressive disorder F33.1 ; Empty sella syndrome E23.6 ; Seasonal allergic rhinitis, unspecified allergic rhinitis trigger J30.2 ; Essential hypertension I10 and Osteoarthritis of spine with radiculopathy, lumbosacral region M47.27 [place] [address] 80749- 7303 Aug, [facility] [address] 61915- 9915 Aug, [facility] [address] 12967- 0140 13 Aug, 2016 Anxiety, generalized F41.1 [place] [address] 99402- 1453 Aug, [facility] [address] 24695- 4788 07 Aug, 2016 Primary insomnia F51.01 ; Essential hypertension I10 ; Empty sella syndrome E23.6 and Chronic pain due to trauma G89.21 [place] [address] 01083- 1042 July, Primary insomnia F51.01 [facility] [address] [place] [id number] [place] [address] 98688 -4121 July, Seasonal allergic rhinitis, unspecified allergic rhinitis trigger J30.2 and Acute suppurative otitis media of right ear without spontaneous rupture of tympanic membrane, recurrence not specified H66.001 [facility] [place] [facility] [address] [place] [id number] [place] [address] 29317 -8164 July, Acute suppurative otitis media of left ear without spontaneous rupture of tympanic membrane, recurrence not specified H66.002 [facility] [address] [place] [id number] [place] [address] 80132- 2813 July, [facility] [address] 55163- 6228 July, Anxiety, generalized F41.1 [facility] [address] 05244- 1316 Jun, [facility] [address] 48120- 2247 Jun, Primary insomnia F51.01 [facility] [address] 41440- 7447 Jun, Empty sella syndrome E23.6 ; Primary insomnia F51.01 and Hypokalemia E87.6 [facility] [address] 80195- 6369 Jun, [facility] [address] [place] [id number] [place] [address] 13623- 7689 Jun, [facility] [address] [place] [id number] [place] [address] 11630- 3695 Jun, Empty sella syndrome E23.6 [facility] [address] [place] [id number] [place] [address] 57760- 4944 Jun, Anxiety, generalized F41.1 [facility] [address] 50350- 2236 Jun, [facility] [address] [place] [id number] [place] [address] 75068- 1816 Jun, Empty sella syndrome E23.6 [facility] [address] [place] [address]- 4034 31 May, 2016 [facility] [address] [place] [id number] [place] [address] 45372- 6799 May, [facility] [address] [place] [id number] [place] [address] 77083- 6577 30 May, 2016 Empty sella syndrome E23.6 [facility] [address] 43963- 2503 May, [facility] [address] 88948- 0658 May, [facility] [address] 08781- 7090 May, Primary insomnia F51.01 [facility] [address] [place] [id number] [place] [address] 13489- 2778 May, [facility] [address] 05251- 0769 May, Nausea R11.0 ; Other headache syndrome G44.89 and Malignant hypertension I10 [facility] [address] [place] [id number] [place] [address] 32766- 4570 07 May, 2016 Anxiety, generalized F41.1 [facility] [address] [place] [id number] [place] [address] 08866- 8281 28 Apr, 2016 Major depressive disorder, recurrent episode, moderate F33.1 [facility] [address] [place] [id number] [place] [address] 44017- 6446 28 Apr, 2016 Moderate episode of recurrent major depressive disorder F33.1 [facility] [address] [place] [id number] [place] [address] 37064- 1750 27 Apr, 2016 Other chronic postprocedural pain G89.28 [facility] [address] [id number] [place] [address] 65560- 3762 15 Apr, 2016 Major depressive disorder, recurrent episode, moderate F33.1 [facility] [address] [place] [id number] [place] [address] 58425- 1841 07 Apr, 2016 Anxiety, generalized F41.1 [place] [address] [place] [id number] [place] [address] 96476- 8045 03 Apr, 2016 [place] [address] [place] [id number] [place] [address] 00730- 5573 Mar, Other chronic postprocedural pain G89.28 ; Status post craniotomy Z98.890 ; Encounter for drug screening Z02.83 and Hematuria R31.9 [place] [address] [place] [id number] [place] [address] 06554- 5291 Mar, Major depressive disorder, recurrent episode, moderate F33.1 [place] [address] [place] [id number] [place] [address] 88952- 4787 Mar, [place] [address] 67998- 2654 Mar, Anxiety, generalized F41.1 [place] [address] [place] [id number] [place] [address] 98237- 0481 Mar, Anxiety, generalized F41.1 and Pernicious anemia D51.0 [place] [address] [place] [id number] [place] [address] 35201- 2035 Mar, 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 and Status post craniotomy Z98.890 [place] [address] [place] [id number] [place] [address] 59086- 9543 Mar, Primary insomnia F51.01 [place] [address] [place] [id number] [place] [address] 56811- 4725 Feb, [place] [address] [place] [id number] [place] [address] 74710- 3658 Feb, Encounter to establish care Z76.89 ; [...] Date Duration Status Oxycodone-Acetaminophen 5-325 MG Orally 3 times a day 1 tablet as needed 8h 14 Feb, 2017 28 days Active RESULTS No Results PROCEDURES [...] 6yrs Hospitalization History surgery only Hospitalization History [facility] 02/2017
--- OUTSIDE RECORDS SUMMARY | 2017-11-05 12:27 | XMS REPORT ---
Author Author OSBALDO CORRAL Organization [facility], [place] Address [address] [place] [address] Care Team Providers Care Public Health Specialist Name Role Phone OSBALDO CORRAL Unavailable PROBLEMS Type Condition ICD9-CM Code PXY85-BE Code Onset Dates Condition Status SNOMED Code Problem Primary insomnia F51.01 Active 1004224 Problem Major depressive disorder, recurrent episode, moderate F33.1 Active 621851870 Problem Anxiety, generalized F41.1 Active 59432162 Problem Vitamin B12 deficiency anemia due to intrinsic factor deficiency D51.0 Active 56818156 Problem Migraine without status migrainosus, not intractable, unspecified migraine type G43.909 Active 10584566 Problem Essential hypertension I10 Active 91946059 Problem Chronic pain due to trauma G89.21 Active 128812968 Problem Adjustment disorder with mixed anxiety and depressed mood F43.23 Active 10512777 Problem Seasonal allergic rhinitis, unspecified allergic rhinitis trigger J30.2 Active 013632034 Problem Empty sella syndrome E23.6 Active 294723058 Problem 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 Active 98589753 Problem Pernicious anemia D51.0 Active 20404093 Problem Hypokalemia E87.6 Active 78113626 Problem Other hyperlipidemia E78.4 Active 68624211 ALLERGIES No Information ENCOUNTERS Encounter Location Date Diagnosis [facility], [place] [id number] [address] Aug, [facility], [place] [address], [place] [address] Aug, [facility], [place] [id number] [place] [address] 71641- 8600 Aug, Primary insomnia F51.01 [facility] [place] [id number], [place] [address] July, Anxiety, generalized F41.1 and Osteoarthritis of spine with radiculopathy, lumbosacral region M47.27 [facility], [place] [id number] [place] [address] 96733- 5378 July, Essential hypertension I10 [place] [id number] [place] [address] 66712- 0940 July, Major depressive disorder, recurrent episode, moderate F33.1 [place] [address] 15552- 4346 July, Primary insomnia F51.01 [place] [address] 30055- 5118 Jun, Anxiety, generalized F41.1 and Osteoarthritis of spine with radiculopathy, lumbosacral region M47.27 [facility] [id number] [place] [address] 43504 -3771 Jun, Acute frontal sinusitis, recurrence not specified J01.10 ; Sinus pressure J34.89 ; Post-nasal drip R09.82 and Sore throat J02.9 [place] [address] 61685- 2435 Jun, Primary insomnia F51.01 [place] [id number] [place] [address] 31948- 7742 May, Anxiety, generalized F41.1 and Osteoarthritis of spine with radiculopathy, lumbosacral region M47.27 [facility] [place] [id number] [place] [address] 80866- 4729 May, Essential hypertension I10 ; 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 ; Empty sella syndrome E23.6 ; Pernicious anemia D51.0 ; Major depressive disorder, recurrent episode, moderate F33.1 ; Primary insomnia F51.01 ; Other hyperlipidemia E78.4 and Anxiety, generalized F41.1 [facility] [id number] [place] [address] 85250- 7831 May, Vitamin B12 deficiency anemia due to intrinsic factor deficiency D51.0 and Pernicious anemia D51.0 [facility] [id number] [place] [address] 51743 -8692 May, Migraine without status migrainosus, not intractable, unspecified migraine type G43.909 [facility] [place] [id number] [place] [address] 85817- 3757 May, [facility] [place] [address] 64014- 6639 May, [place] [address] 61115- 6207 09 May, 2017 Osteoarthritis of spine with radiculopathy, lumbosacral region M47.27 and Primary insomnia F51.01 [facility] [place] [address] 32448- 8510 02 May, 2017 Osteoarthritis of spine with radiculopathy, lumbosacral region M47.27 and Anxiety, generalized F41.1 [place] [address] 16294- 4556 02 May, 2017 [place] [address] 34163- 3195 28 Apr, 2017 [place] [address] 76666- 2430 19 Apr, 2017 [place] [address] 80636- 2861 13 Apr, 2017 Anxiety, generalized F41.1 ; Major depressive disorder, recurrent episode, moderate F33.1 ; Moderate episode of recurrent major depressive disorder F33.1 and Adjustment disorder with mixed anxiety and depressed mood F43.23 [place] [id number] [place] [address] 75784- 3407 13 Apr, 2017 Major depressive disorder, recurrent episode, moderate F33.1 ; Anxiety, generalized F41.1 ; Essential hypertension I10 ; Primary insomnia F51.01 and 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 [facility] [id number] [place] [address] 22686- 5575 09 Apr, 2017 Other chest pain R07.89 ; Sinus bradycardia R00.1 ; Essential hypertension I10 and Other hyperlipidemia E78.4 [place] [address] 82106- 9582 08 Apr, 2017 Primary insomnia F51.01 [place] [address] 65578- 2213 06 Apr, 2017 [place] [address] 73063- 9830 Apr, Anxiety, generalized F41.1 [place] [address] 10791- 2526 Apr, Osteoarthritis of spine with radiculopathy, lumbosacral region M47.27 [place] [address] 58957- 7494 Mar, Intractable migraine without aura and without status migrainosus G43.019 and Dyshidrotic hand dermatitis L30.1 [facility] [place] [address] 17284 -0022 Mar, Skin infection L08.9 [place] [address] 98615- 8958 Mar, [facility] [address] 23718 -5302 Mar, Skin lesion L98.9 [place] [address] 09538- 7978 Mar, Primary insomnia F51.01 and Anxiety, generalized F41.1 [place] [address] 03909- 1634 Mar, Osteoarthritis of spine with radiculopathy, lumbosacral region M47.27 [place] [id number] [place] [address] 93334- 8615 Feb, [facility] [place] [address] 72850- 2610 Feb, [facility] [place] [address] 53304- 4711 Feb, Hypokalemia E87.6 [facility] [place] [address] 79271- 0672 Feb, Intractable migraine without aura and without status migrainosus G43.019 and Other chest pain R07.89 [place] [address] 42153- 0206 Feb, [place] [address] 87106- 5420 Feb, Osteoarthritis of spine with radiculopathy, lumbosacral region M47.27 [place] [id number] [place] [address] 89766- 8927 Feb, Hypokalemia E87.6 [place] [address] 25283- 4964 Feb, [place] [id number] [place] [address] 90348- 2972 Feb, Primary insomnia F51.01 and Anxiety, generalized F41.1 [facility] [id number] [place] [address] 54369 -7319 Feb, Acute suppurative otitis media of both ears without spontaneous rupture of tympanic membranes, recurrence not specified H66.003 [facility] [place] [id number] [place] [address] 03234- 0546 Feb, [facility] [place] [id number] [place] [address] 34644- 7116 Jan, Osteoarthritis of spine with radiculopathy, lumbosacral region M47.27 [facility] [place] [id number] [place] [address] 58769- 7785 07 Jan, 2017 Primary insomnia F51.01 and Anxiety, generalized F41.1 [place] [address] 08264- 9743 02 Jan, 2017 Chronic pain due to trauma G89.21 ; Left otitis media with effusion H65.92 and Otalgia of left ear H92.02 [facility] [address] 60968 -3566 Jan, Bilateral otitis media with effusion H65.93 [place] [address] 60859- 7136 Dec, [place] [address] 50897- 7884 Dec, Primary insomnia F51.01 and Anxiety, generalized F41.1 [place] [address] 99342- 6855 Nov, [place] [address] 60109- 2666 Nov, [place] [address] 38185- 6810 Nov, Anxiety, generalized F41.1 [place] [address] 30302- 0706 Nov, Pernicious anemia D51.0 [place] [address] 89894- 8352 Nov, Primary insomnia F51.01 [place] [address] 25019- 3640 Nov, Encounter for well woman exam with routine gynecological exam Z01.419 ; Screening breast examination Z12.31 and Otalgia of left ear H92.02 [place] [id number] [place] [address] 39200- 9243 Oct, [facility] [id number] [place] [address] 33916 -1928 14 Oct, 2016 Insect bite (nonvenomous) of right upper arm, initial encounter S40.861A [place] [id number] [place] [address] 47436- 9147 11 Oct, 2016 Pernicious anemia D51.0 [place] [address] 84123- 6059 07 Oct, 2016 Anxiety, generalized F41.1 and Pernicious anemia D51.0 [place] [address] 71894- 4832 Oct, Encounter to establish care with new doctor Z76.89 ; Moderate episode of recurrent major depressive disorder F33.1 ; Empty sella syndrome E23.6 ; Seasonal allergic rhinitis, unspecified allergic rhinitis trigger J30.2 ; Essential hypertension I10 and Osteoarthritis of spine with radiculopathy, lumbosacral region M47.27 [place] [id number] [place] [address] 55577- 4859 Aug, [place] [address] 10024- 3372 Aug, [place] [id number] [place] [address] 20060- 7117 13 Aug, 2016 Anxiety, generalized F41.1 [place] [address] 49530- 0514 08 Aug, 2016 [place] [id number] [place] [address] 70951- 3027 07 Aug, 2016 Primary insomnia F51.01 ; Essential hypertension I10 ; Empty sella syndrome E23.6 and Chronic pain due to trauma G89.21 [place] [id number] [place] [address] 82096- 0000 July, Primary insomnia F51.01 [facility] [address] 60392 -0094 July, Seasonal allergic rhinitis, unspecified allergic rhinitis trigger J30.2 and Acute suppurative otitis media of right ear without spontaneous rupture of tympanic membrane, recurrence not specified H66.001 [facility] [id number] [place] [address] 89193 -1822 July, Acute suppurative otitis media of left ear without spontaneous rupture of tympanic membrane, recurrence not specified H66.002 [facility] [place] [address] 89868- 6113 July, [facility] [place] [address] 62141- 5379 July, Anxiety, generalized F41.1 [facility] [place] [id number] [place] [address] 96420- 3735 Jun, [facility] [place] [address] 40209- 1758 Jun, Primary insomnia F51.01 [facility] [place] [address] 07696- 4780 Jun, Empty sella syndrome E23.6 ; Primary insomnia F51.01 and Hypokalemia E87.6 [facility] [place] [id number] [place] [address] 07652- 4653 Jun, [facility] [place] [id number] [place] [address] 90968- 7380 Jun, [facility] [place] [id number] [place] [address] 64936- 9802 Jun, Empty sella syndrome E23.6 [place] [address] 53754- 2740 Jun, Anxiety, generalized F41.1 [facility] [place] [id number] [place] [address] 73922- 3955 Jun, [facility] [place] [address] 78794- 0168 Jun, Empty sella syndrome E23.6 [facility] [place] [id number] [place] [address] 78339- 7897 May, [facility] [place] [id number] [place] [address] 21605- 5069 May, [facility] [place] [id number] [place] [address] 07015- 5409 May, Empty sella syndrome E23.6 [facility] [place] [id number] [place] [address] 22598- 5762 May, [facility] [place] [address] 34048- 7986 May, [facility] [place] [id number] [place] [address] 83909- 3713 May, Primary insomnia F51.01 [facility] [place] [address] 00001- 5786 May, [facility] [place] [id number] [place] [address] 60241- 7474 May, Nausea R11.0 ; Other headache syndrome G44.89 and Malignant hypertension I10 [place] [id number] [place] [address] 55307- 5080 07 May, 2016 Anxiety, generalized F41.1 [facility] [place] [id number] [place] [address] 67856- 9037 28 Apr, 2016 Major depressive disorder, recurrent episode, moderate F33.1 [facility] [place] [id number] [place] [address] 88637- 3529 28 Apr, 2016 Moderate episode of recurrent major depressive disorder F33.1 [facility] [place] [id number] [place] [address] 11128- 5416 27 Apr, 2016 Other chronic postprocedural pain G89.28 [facility] [place] [address] 08124- 1390 15 Apr, 2016 Major depressive disorder, recurrent episode, moderate F33.1 [facility] [place] [id number] [place] [address] 28787- 0152 07 Apr, 2016 Anxiety, generalized F41.1 [facility] [place] [id number] [place] [address] 05189- 4076 03 Apr, 2016 [place] [address] 11062- 4714 Mar, Other chronic postprocedural pain G89.28 ; Status post craniotomy Z98.890 ; Encounter for drug screening Z02.83 and Hematuria R31.9 [place] [address] 20930- 0493 Mar, Major depressive disorder, recurrent episode, moderate F33.1 [place] [address] 34317- 8074 Mar, [place] [id number] [place] [address] 87387- 6226 Mar, Anxiety, generalized F41.1 [place] [address] 56671- 2881 Mar, Anxiety, generalized F41.1 and Pernicious anemia D51.0 [place] [id number] [place] [address] 01531- 8653 Mar, 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 [facility] 02/2017
--- OUTSIDE RECORDS SUMMARY | 2017-11-05 12:27 | XMS REPORT ---
Author Author OSBALDO CORRAL Organization [facility] Address [address] [place] [address] Care Team Providers Care Thrill Performer Name Role Phone OSBALDO CORRAL Unavailable PROBLEMS Type Condition ICD9-CM Code AZX33-MW Code Onset Dates Condition Status SNOMED Code Problem Primary insomnia F51.01 Active 8976431 Problem Major depressive disorder, recurrent episode, moderate F33.1 Active 597023700 Problem Anxiety, generalized F41.1 Active 37145125 Problem Vitamin B12 deficiency anemia due to intrinsic factor deficiency D51.0 Active 74317535 Problem Migraine without status migrainosus, not intractable, unspecified migraine type G43.909 Active 82370080 Problem Essential hypertension I10 Active 54293634 Problem Chronic pain due to trauma G89.21 Active 848489106 Problem Adjustment disorder with mixed anxiety and depressed mood F43.23 Active 88850964 Problem Seasonal allergic rhinitis, unspecified allergic rhinitis trigger J30.2 Active 510648079 Problem Empty sella syndrome E23.6 Active 520888254 Problem 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 Active 43825924 Problem Pernicious anemia D51.0 Active 82610516 Problem Hypokalemia E87.6 Active 66852309 Problem Other hyperlipidemia E78.4 Active 40910119 ALLERGIES Substance Reaction Event Type Date Status Iodine anaphylaxis Drug Allergy Jan, Active Depakote CP Drug Allergy Jan, Active Bactrim DS swelling of joint Drug Allergy Jan, Active ENCOUNTERS Encounter Location Date Diagnosis [facility] [address] [facility] [id number] [address] Aug, [facility] [address] [facility] [id number] [address] July, Essential hypertension I10 [facility] [address] [facility] [id number] [address] July, Major depressive disorder, recurrent episode, moderate F33.1 [place] [address] [address] July, Primary insomnia F51.01 [place] [address] [place] [id number] Jun, Anxiety, generalized F41.1 and Osteoarthritis of spine with radiculopathy, lumbosacral region M47.27 [facility] [address] [address] Jun, Acute frontal sinusitis, recurrence not specified J01.10 ; Sinus pressure J34.89 ; Post-nasal drip R09.82 and Sore throat J02.[address] [address] Jun, Primary insomnia F51.01 [place] [address] [address] May, Anxiety, generalized F41.1 and Osteoarthritis of spine with radiculopathy, lumbosacral region M47.27 [place] [address] [address] May, Essential hypertension I10 ; 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 ; Empty sella syndrome E23.6 ; Pernicious anemia D51.0 ; Major depressive disorder, recurrent episode, moderate F33.1 ; Primary insomnia F51.01 ; Other hyperlipidemia E78.4 and Anxiety, generalized F41.1 [place] [address] [place] [id number] [place] [address] May, Vitamin B12 deficiency anemia due to intrinsic factor deficiency D51.0 and Pernicious anemia D51.0 [facility] [address] [address] May, Migraine without status migrainosus, not intractable, unspecified migraine type G43.909 [place] [address] [address] May, [place] [address] [place] [id number] [place] [id number] May, [place] [address] [place] [address] May, Osteoarthritis of spine with radiculopathy, lumbosacral region M47.27 and Primary insomnia F51.[address] [address] May, Osteoarthritis of spine with radiculopathy, lumbosacral region M47.27 and Anxiety, generalized F41.1 [place] [id number] [place] [id number] May, [address] [address] Apr, [address] [address] Apr, [place] [id number] [place] [address]279- [address] 13 Apr, 2017 Anxiety, generalized F41.1 ; Major depressive disorder, recurrent episode, moderate F33.1 ; Moderate episode of recurrent major depressive disorder F33.1 and Adjustment disorder with mixed anxiety and depressed mood F43.23 [place] [id number] [place] [address]- [address] 13 Apr, 2017 Major depressive disorder, recurrent episode, moderate F33.1 ; Anxiety, generalized F41.1 ; Essential hypertension I10 ; Primary insomnia F51.01 and 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 [address] 09 Apr, 2017 Other chest pain R07.89 ; Sinus bradycardia R00.1 ; Essential hypertension I10 and Other hyperlipidemia E78.[address] [address] Apr, Primary insomnia F51.01 [facility] [address] [place] [id number] [place] [address] 36378- 5[address] Apr, [facility] [address] [place] [id number] [place] [address]76- 9029 Apr, Anxiety, generalized F41.1 [place] [address] [address] Apr, Osteoarthritis of spine with radiculopathy, lumbosacral region M47.27 [place] [address] [place] [id number] [place] [address] 87873- 4929 Mar, Intractable migraine without aura and without status migrainosus G43.019 and Dyshidrotic hand dermatitis L30.1 [facility] [address] [address] Mar, Skin infection L08.9 [place] [address] [address] Mar, [facility] [address] [place] [id number] [place] [address] Mar, Skin lesion L98.9 [place] [address] [place] [id number] [place] [address] 9[address]27- 115[address] Mar, Primary insomnia F51.01 and Anxiety, generalized F41.1 [place] [address] [place] [id number] [place] [address]89- 4886 Mar, Osteoarthritis of spine with radiculopathy, lumbosacral region M47.27 [place] [address] [place] [id number] [place] [address] 84678- 4548 Feb, [place] [address] [address] Feb, [place] [address] [place] [id number] [place] [address]- 1971 Feb, Hypokalemia E87.6 [facility] [address] [place] [id number] [place] [address] 49461- 8260 Feb, Intractable migraine without aura and without status migrainosus G43.019 and Other chest pain R07.89 [facility] [address] [place] [id number] [place] [address] 60599- 9637 Feb, [facility] [address] [address] Feb, Osteoarthritis of spine with radiculopathy, lumbosacral region M47.27 [place] [address] [address] Feb, Hypokalemia E87.6 [place] [address] [place] [id number] [place] [address] 24115- [address] Feb, [place] [address] [address] Feb, Primary insomnia F51.01 and Anxiety, generalized F41.1 [facility] [address] [place] [id number] [place] [address] Feb, Acute suppurative otitis media of both ears without spontaneous rupture of tympanic membranes, recurrence not specified H66.003 [facility] [address] [place] [id number] [place] [address] 51685- 7680 Feb, [facility] [address] [place] [id number] [place] [address] 28[address]- 39[address] Jan, Osteoarthritis of spine with radiculopathy, lumbosacral region M47.27 [place] [address] [place] [id number] [place] [address] 8[address]- [address] Jan, Primary insomnia F51.01 and Anxiety, generalized F41.1 [facility] [address] [place] [id number] [place] [address] 9[address]- [address] 02 Jan, 2017 Chronic pain due to trauma G89.21 ; Left otitis media with effusion H65.92 and Otalgia of left ear H92.02 [facility] [address] [place] [id number] [place] [address]47 Jan, Bilateral otitis media with effusion H65.93 [facility] [address] [place] [id number] [place] [address] 90658- [address] Dec, [facility] [address] [address]- [address] Dec, Primary insomnia F51.01 and Anxiety, generalized F41.1 [place] [address] [address]- [address] Nov, [place] [address] 24967- [address] Nov, [facility] [address] [place] [id number] [place] [address]14- [address] Nov, Anxiety, generalized F41.1 [place] [address] [place] [id number] [place] [address] 27053- 8340 Nov, Pernicious anemia D51.0 [place] [address] [address]- [address]679 Nov, Primary insomnia F51.01 [facility] [address] [place] [id number] [place] [address] 99757- 1275 Nov, Encounter for well woman exam with routine gynecological exam Z01.419 ; Screening breast examination Z12.31 and Otalgia of left ear H92.02 [facility] [address] [place] [id number] [place] [address] 05698- 0654 Oct, [facility] [address] [address] 14 Oct, 2016 Insect bite (nonvenomous) of right upper arm, initial encounter S40.861A [place] [address] [place] [id number] [place] [address] 53865- 8400 Oct, Pernicious anemia D51.0 [place] [address] [place] [id number] [place] [address] 18315- 4094 07 Oct, 2016 Anxiety, generalized F41.1 and Pernicious anemia D51.0 [place] [address] [address]- 285[address] Oct, Encounter to establish care with new doctor Z76.89 ; Moderate episode of recurrent major depressive disorder F33.1 ; Empty sella syndrome E23.6 ; Seasonal allergic rhinitis, unspecified allergic rhinitis trigger J30.2 ; Essential hypertension I10 and Osteoarthritis of spine with radiculopathy, lumbosacral region M47.27 [place] [address] [address] Aug, [place] [address] [address]- 1427 Aug, [place] [address] 7[address]- [address] Aug, Anxiety, generalized F41.1 [place] [address] [address]- 8[address] 08 Aug, 2016 [place] [address] [address]- [address] 07 Aug, 2016 Primary insomnia F51.01 ; Essential hypertension I10 ; Empty sella syndrome E23.6 and Chronic pain due to trauma G89.21 [place] [address] [address]- [address] July, Primary insomnia F51.01 [facility] [address] [address] July, Seasonal allergic rhinitis, unspecified allergic rhinitis trigger J30.2 and Acute suppurative otitis media of right ear without spontaneous rupture of tympanic membrane, recurrence not specified H66.001 [facility] [address] [place] [id number] [place] [address] 7[address]16 -[address] July, Acute suppurative otitis media of left ear without spontaneous rupture of tympanic membrane, recurrence not specified H66.002 [facility] [address] [place] [id number] [place] [address] 70800- 2353 July, [facility] [address] [place] [id number] [place] [address] 69615- 1823 July, Anxiety, generalized F41.1 [facility] [address] [place] [id number] [place] [address] 05622- 9689 Jun, [facility] [address] [place] [id number] [place] [address] 28965- 2664 Jun, Primary insomnia F51.01 [facility] [address] 18[address]- 2787 Jun, Empty sella syndrome E23.6 ; Primary insomnia F51.01 and Hypokalemia E87.6 [facility] [address] [place] [id number] [place] [address] 50112- 6127 Jun, [facility] [address] [place] [id number] [place] [address] 65705- 7322 Jun, [facility] [address] [place] [id number] [place] [address] 29879- 1644 Jun, Empty sella syndrome E23.6 [facility] [address] [place] [id number] [place] [address] 05781- 7917 Jun, Anxiety, generalized F41.1 [facility] [address] [place] [id number] [place] [address] 01246- 9217 Jun, [facility] [address] [place] [id number] [place] [address] 84113- 3266 Jun, Empty sella syndrome E23.6 [facility] [address] [place] [id number] [place] [address] 51754- 2033 May, [facility] [address] [place] [id number] [place] [address] 87498- 5188 May, [facility] [address] [place] [id number] [place] [address] 95162- 1314 30 May, 2016 Empty sella syndrome E23.6 [facility] [address] [place] [id number] [place] [address] 47543- 6028 May, [facility] [address] [place] [id number] [place] [address] 28706- 3503 May, [place] [address] 37213- 6255 May, Primary insomnia F51.01 [place] [address] 29462- 1576 May, [place] [address] 18257- 3525 May, Nausea R11.0 ; Other headache syndrome G44.89 and Malignant hypertension I10 [place] [address] 07704- 5533 07 May, 2016 Anxiety, generalized F41.1 [place] [address] [place] [id number] [place] [address] 35296- 6481 28 Apr, 2016 Major depressive disorder, recurrent episode, moderate F33.1 [place] [address] [place] [id number] [place] [address] 44995- 2097 28 Apr, 2016 Moderate episode of recurrent major depressive disorder F33.1 [place] [address] [place] [id number] [place] [address] 71267- 9776 27 Apr, 2016 Other chronic postprocedural pain G89.28 [place] [address] [place] [id number] [place] [address] 14862- 2563 15 Apr, 2016 Major depressive disorder, recurrent episode, moderate F33.1 [place] [address] [place] [id number] [place] [address] 42997- 8038 07 Apr, 2016 Anxiety, generalized F41.1 [place] [address] [place] [id number] [place] [address] 35430- 3235 03 Apr, 2016 [place] [address] [place] [id number] [place] [address] 14373- 0350 Mar, Other chronic postprocedural pain G89.28 ; Status post craniotomy Z98.890 ; Encounter for drug screening Z02.83 and Hematuria R31.9 [place] [address] 34559- 5027 Mar, Major depressive disorder, recurrent episode, moderate F33.1 [place] [address] 58472- 5902 Mar, [place] [address] 28697- 8983 Mar, Anxiety, generalized F41.1 [place] [address] 14831- 5178 Mar, Anxiety, generalized F41.1 and Pernicious anemia D51.0 [place] [address] 01618- 3052 Mar, 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 and Status post craniotomy Z98.890 [place] [address] 13800- 6661 Mar, Primary insomnia F51.01 [place] [address] [place] [id number] [place] [address] 76953- 4832 Feb, [place] [address] 05470- 2376 Feb, Encounter to establish care Z76.89 ; Status post craniotomy Z98.890 ; 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 ; Hypokalemia E87.6 ; Essential hypertension I10 ; Other hyperlipidemia E78.4 ; Pernicious anemia D51.0 ; Other depression F32.89 and Chronic nausea R11.0 IMMUNIZATIONS No Known Immunizations SOCIAL HISTORY Never Assessed REASON FOR VISIT left ear pain / referral to ENT----Smooth, seen in [facility] yesterday PLAN OF CARE Activity Details Follow Up 3 Months Reason:[facility]ITAL SIGNS Height 67 in 2017-01-29 Weight 133 lbs 2017-01-29 Temperature 98.8 degrees Fahrenheit 2017-01-29 Heart Rate 80 bpm 2017-01-29 Respiratory Rate 20 2017-01-29 BMI 20.83 kg/m2 2017-01-29 Blood pressure systolic 140 mmHg 2017-01-29 Blood pressure diastolic 80 mmHg 2017-01-29 MEDICATIONS Medication Instructions Dosage Frequency Start Date End Date Duration Status Pravastatin Sodium 80 MG Orally Once a day 1 tablet 24h 90 Active Ambien 10 MG Orally Once a day 1 tablet at bedtime as needed 24h Mar, 28 days Active Vitamin D 400 UNIT Orally Once a day 2 capsules 24h Active Lisinopril 40 MG Orally Once a day 1 tablet 24h 90 days Active BD Syringe/Needle 23G X 1 For use with injectable B12 30 Active Metoprolol Tartrate 25 MG Orally Once a day 1 tablet with food 24h Active PredniSONE 20 mg Orally Once a day 2 tablets 24h Jan, Jan, 05 days Active Xanax 0.5 MG Orally Three times a day 1 tablet 8h 28 days Active Cyanocobalamin 1000 MCG/ML Intramuscular once monthly Inject 1ML 28 Active Duloxetine HCl 60 MG Orally Once a day in the AM 1 capsule Active Tizanidine HCl 4 MG Orally Three times a day 1 tablet as needed 8h May, 30 days Active Folic Acid 400 MCG Orally Once a day 1 tablet 24h Active Cefdinir 300 MG Orally every 12 hrs 1 capsule 12h Jan, Jan, 10 day(s) Active Ipratropium Dearing 0.06 % Nasally Three times a day 2 sprays in each nostril as needed 8h Active Ibuprofen 200 mg Orally Once a day 1 tablet with food or milk as needed 24h Active Potassium Chloride ER 10 MEQ Orally Once a day 1 tablet with food 24h 30 days Active Aspirin Adult Low Strength 81 MG Orally Once a day 1 tablet 24h Active Oxycodone-Acetaminophen 5-325 MG Orally 3 times a day 1 tablet as needed 8h Oct, Oct, 16 days Active RESULTS Name Result Date Reference Range AMERITOX 2017-01-29 PROCEDURES Procedure Date Ordered Result Body Site No Charge Jan 29, 2017 INSTRUCTIONS MEDICATIONS ADMINISTERED No Known Medications MEDICAL (GENERAL) HISTORY Type Description Date Medical History HTN Medical History Hypokalemia since cranioplasty in may 2015 Medical History Insomnia longstanding Ambien works at [employer] Medical History Hypercholesterolemia Medical History prenicious anemia [...]
--- OUTSIDE RECORDS SUMMARY | 2017-11-05 12:27 | XMS REPORT ---
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 Name Role Phone OSBALDO CORRAL Unavailable PROBLEMS Type Condition ICD9-CM Code CIZ76-ID Code Onset Dates Condition Status SNOMED Code Problem Primary insomnia F51.01 Active 3100878 Problem Major depressive disorder, recurrent episode, moderate F33.1 Active 350889125 Problem Anxiety, generalized F41.1 Active 57250075 Problem Vitamin B12 deficiency anemia due to intrinsic factor deficiency D51.0 Active 31480808 Problem Migraine without status migrainosus, not intractable, unspecified migraine type G43.909 Active 83855629 Problem Essential hypertension I10 Active 70435323 Problem Chronic pain due to trauma G89.21 Active 353453559 Problem Adjustment disorder with mixed anxiety and depressed mood F43.23 Active 56736262 Problem Seasonal allergic rhinitis, unspecified allergic rhinitis trigger J30.2 Active 767323838 Problem Empty sella syndrome E23.6 Active 453403100 Problem 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 Active 36332232 Problem Pernicious anemia D51.0 Active 16905607 Problem Hypokalemia E87.6 Active 38101855 Problem Other hyperlipidemia E78.4 Active 25695259 ALLERGIES No Information ENCOUNTERS Encounter Location Date Diagnosis [facility] [address] [address] Aug, [facility] [address] [address] Aug, Primary insomnia F51.01 [facility] [address] [address] July, Anxiety, generalized F41.1 and Osteoarthritis of spine with radiculopathy, lumbosacral region M47.27 [facility] [address] [place] [id number] [place] [address] July, Essential hypertension I10 [place] [address] [address] July, Major depressive disorder, recurrent episode, moderate F33.1 [place] [address] [place] [id number] [place] [address] 33926- 3523 July, Primary insomnia F51.01 [place] [address] [address] Jun, Anxiety, generalized F41.1 and Osteoarthritis of spine with radiculopathy, lumbosacral region M47.27 [facility] [place] [id number] [place] [address] Jun, Acute frontal sinusitis, recurrence not specified J01.10 ; Sinus pressure J34.89 ; Post-nasal drip R09.82 and Sore throat J02.9 [place] [address] [place] [id number] [place] [address] 32552- 7385 Jun, Primary insomnia F51.01 [place] [address] [place] [id number] [place] [address] 09210- 8140 May, Anxiety, generalized F41.1 and Osteoarthritis of spine with radiculopathy, lumbosacral region M47.27 [place] [address] [place] [id number] [place] [address] 92245- 0312 May, Essential hypertension I10 ; 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 ; Empty sella syndrome E23.6 ; Pernicious anemia D51.0 ; Major depressive disorder, recurrent episode, moderate F33.1 ; Primary insomnia F51.01 ; Other hyperlipidemia E78.4 and Anxiety, generalized F41.1 [place] [address] [place] [id number] [place] [address] 57980- 1708 May, Vitamin B12 deficiency anemia due to intrinsic factor deficiency D51.0 and Pernicious anemia D51.0 [facility] [address] [place] [id number] [place] [address] 86367 -[address]80 May, Migraine without status migrainosus, not intractable, unspecified migraine type G43.909 [facility] [address] [place] [id number] [place] [address] 49414- 5888 May, [facility] [address] [address]- 67[address] May, [place] [address] [address]- [address]199 May, Osteoarthritis of spine with radiculopathy, lumbosacral region M47.27 and Primary insomnia F51.01 [place] [address] 0[address]- 8281 May, Osteoarthritis of spine with radiculopathy, lumbosacral region M47.27 and Anxiety, generalized F41.1 [place] [address] 67712- 4643 May, [place] [address] 71861- 6032 28 Apr, 2017 [place] [address] 71278- 5939 Apr, [place] [address] 48645- 2714 13 Apr, 2017 Anxiety, generalized F41.1 ; Major depressive disorder, recurrent episode, moderate F33.1 ; Moderate episode of recurrent major depressive disorder F33.1 and Adjustment disorder with mixed anxiety and depressed mood F43.23 [place] [address] 19014- 4648 13 Apr, 2017 Major depressive disorder, recurrent episode, moderate F33.1 ; Anxiety, generalized F41.1 ; Essential hypertension I10 ; Primary insomnia F51.01 and 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 [place] [address] 8[address]35- 1932 09 Apr, 2017 Other chest pain R07.89 ; Sinus bradycardia R00.1 ; Essential hypertension I10 and Other hyperlipidemia E78.4 [place] [address] 79160- 7350 Apr, Primary insomnia F51.01 [place] [address] 64934- 4881 Apr, [place] [address] 53771- 4839 Apr, Anxiety, generalized F41.1 [place] [address] 66271- 1195 Apr, Osteoarthritis of spine with radiculopathy, lumbosacral region M47.27 [place] [address] 65234- 0141 Mar, Intractable migraine without aura and without status migrainosus G43.019 and Dyshidrotic hand dermatitis L30.1 [facility] [place] [address] 9[address]85 -1382 Mar, Skin infection L08.9 [place] [address] 92518- 6470 Mar, [facility] [place] [address] 92080 -0865 Mar, Skin lesion L98.9 [place] [address] 82783- 2771 Mar, Primary insomnia F51.01 and Anxiety, generalized F41.1 [place] [address] 34865- 0573 Mar, Osteoarthritis of spine with radiculopathy, lumbosacral region M47.27 [place] [address] 57264- 6878 Feb, [place] [address] [place] [id number] [place] [address] 14862- 6693 Feb, [facility] [address] 48913- 7974 Feb, Hypokalemia E87.6 [facility] [address] [place] [id number] [place] [address] 54698- 6354 Feb, Intractable migraine without aura and without status migrainosus G43.019 and Other chest pain R07.89 [facility] [address] [place] [id number] [place] [address] 33173- 4249 Feb, [place] [address] 31421- 4169 Feb, Osteoarthritis of spine with radiculopathy, lumbosacral region M47.27 [place] [address] [place] [id number] [place] [address] 63114- 9392 Feb, Hypokalemia E87.6 [facility] [address] [place] [id number] [place] [address] 39559- 7037 Feb, [place] [address] 22814- 6705 Feb, Primary insomnia F51.01 and Anxiety, generalized F41.1 [facility] [id number] [place] [address] 89900 -6426 Feb, Acute suppurative otitis media of both ears without spontaneous rupture of tympanic membranes, recurrence not specified H66.003 [facility] [address] [place] [id number] [place] [address] 59146- 3765 Feb, [place] [address] 99446- 7123 Jan, Osteoarthritis of spine with radiculopathy, lumbosacral region M47.27 [facility] [address] [place] [id number] [place] [address] 06386- 5577 Jan, Primary insomnia F51.01 and Anxiety, generalized F41.1 [place] [address] [place] [id number] [place] [address] 30069- 8153 02 Jan, 2017 Chronic pain due to trauma G89.21 ; Left otitis media with effusion H65.92 and Otalgia of left ear H92.02 [facility] [address] [address]274 Jan, Bilateral otitis media with effusion H65.93 [place] [address] 50347- 5201 Dec, [place] [address] [address]32 0796 Dec, Primary insomnia F51.01 and Anxiety, generalized F41.1 [place] [address] 37539- 4122 Nov, [place] [address] 93155- 0291 Nov, [place] [address] 12524- 1640 Nov, Anxiety, generalized F41.1 [place] [address] 29663- 8932 Nov, Pernicious anemia D51.0 [place] [address] 30404- 8749 Nov, Primary insomnia F51.01 [place] [address] 86916- 7400 Nov, Encounter for well woman exam with routine gynecological exam Z01.419 ; Screening breast examination Z12.31 and Otalgia of left ear H92.02 [place] [address] [place] [id number] [place] [address] 08173- 1009 Oct, [facility] [address] [address] -9[address] Oct, Insect bite (nonvenomous) of right upper arm, initial encounter S40.861A [facility] [address] 75425- 4280 Oct, Pernicious anemia D51.0 [place] [address] 38793- 4183 Oct, Anxiety, generalized F41.1 and Pernicious anemia D51.0 [place] [address] 61431- 0513 Oct, Encounter to establish care with new doctor Z76.89 ; Moderate episode of recurrent major depressive disorder F33.1 ; Empty sella syndrome E23.6 ; Seasonal allergic rhinitis, unspecified allergic rhinitis trigger J30.2 ; Essential hypertension I10 and Osteoarthritis of spine with radiculopathy, lumbosacral region M47.27 [place] [address] 37592- 7296 Aug, [facility] [address] 61033- 3731 Aug, [facility] [address] 48909- 9275 13 Aug, 2016 Anxiety, generalized F41.1 [place] [address] 97081- 2784 Aug, [facility] [address] 41719- 5642 07 Aug, 2016 Primary insomnia F51.01 ; Essential hypertension I10 ; Empty sella syndrome E23.6 and Chronic pain due to trauma G89.21 [place] [address] 41238- 3957 July, Primary insomnia F51.01 [facility] [address] [place] [id number] [place] [address] 51459 -6562 July, Seasonal allergic rhinitis, unspecified allergic rhinitis trigger J30.2 and Acute suppurative otitis media of right ear without spontaneous rupture of tympanic membrane, recurrence not specified H66.001 [facility] [address] [id number] [place] [address] 44118 -3967 July, Acute suppurative otitis media of left ear without spontaneous rupture of tympanic membrane, recurrence not specified H66.002 [facility] [address] [place] [id number] [place] [address] 02166- 3854 July, [facility] [address] 39499- 5238 July, Anxiety, generalized F41.1 [facility] [address] 51803- 0055 Jun, [facility] [address] 23196- 4531 Jun, Primary insomnia F51.01 [facility] [address] 05617- 7146 Jun, Empty sella syndrome E23.6 ; Primary insomnia F51.01 and Hypokalemia E87.6 [facility] [address] 29045- 9933 Jun, [facility] [address] [place] [id number] [place] [address] 86549- 3054 Jun, [facility] [address] [place] [id number] [place] [address] 64925- 7497 Jun, Empty sella syndrome E23.6 [facility] [address] [place] [id number] [place] [address] 07453- 5556 Jun, Anxiety, generalized F41.1 [facility] [address] 19898- 0025 Jun, [facility] [address] [place] [id number] [place] [address] 75984- 6325 Jun, Empty sella syndrome E23.6 [facility] [address] [place] [address]- 4217 31 May, 2016 [facility] [address] [id number] [place] [address] 21105- 5778 May, [facility] [id number] [place] [address] 01847- 7388 30 May, 2016 Empty sella syndrome E23.6 [facility] [address] 04220- 3953 May, [facility] [address] 63614- 3407 May, [facility] [address] 72350- 2300 May, Primary insomnia F51.01 [facility] [address] [place] [id number] [place] [address] 59550- 6433 May, [facility] [address] 75419- 4079 May, Nausea R11.0 ; Other headache syndrome G44.89 and Malignant hypertension I10 [facility] [address] [place] [id number] [place] [address] 77251- 5713 07 May, 2016 Anxiety, generalized F41.1 [facility] [address] [place] [id number] [place] [address] 23424- 1530 28 Apr, 2016 Major depressive disorder, recurrent episode, moderate F33.1 [facility] [address] [place] [id number] [place] [address] 99396- 9328 28 Apr, 2016 Moderate episode of recurrent major depressive disorder F33.1 [facility] [address] [place] [id number] [place] [address] 35879- 7077 27 Apr, 2016 Other chronic postprocedural pain G89.28 [facility] [address] [id number] [place] [address] 71289- 0083 15 Apr, 2016 Major depressive disorder, recurrent episode, moderate F33.1 [facility] [address] [place] [id number] [place] [address] 07203- 5691 07 Apr, 2016 Anxiety, generalized F41.1 [place] [address] [place] [id number] [place] [address] 88796- 8474 03 Apr, 2016 [place] [address] [place] [id number] [place] [address] 91476- 4759 Mar, Other chronic postprocedural pain G89.28 ; Status post craniotomy Z98.890 ; Encounter for drug screening Z02.83 and Hematuria R31.9 [place] [address] [place] [id number] [place] [address] 61617- 8221 Mar, Major depressive disorder, recurrent episode, moderate F33.1 [place] [address] [place] [id number] [place] [address] 31780- 3130 Mar, [place] [address] 36071- 8114 Mar, Anxiety, generalized F41.1 [place] [address] [place] [id number] [place] [address] 65143- 5122 Mar, Anxiety, generalized F41.1 and Pernicious anemia D51.0 [place] [address] [place] [id number] [place] [address] 29978- 4091 Mar, 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 and Status post craniotomy Z98.890 [place] [address] [place] [id number] [place] [address] 62597- 5253 Mar, Primary insomnia F51.01 [place] [address] [place] [id number] [place] [address] 42933- 1245 Feb, [place] [address] [place] [id number] [place] [address] 35936- 5974 Feb, Encounter to establish care Z76.89 ; Status post craniotomy Z98.890 ; 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 ; Hypokalemia E87.6 ; Essential hypertension I10 ; Other hyperlipidemia E78.4 ; Pernicious anemia D51.0 ; Other depression F32.89 and Chronic nausea R11.0 IMMUNIZATIONS No Known Immunizations SOCIAL HISTORY Never Assessed REASON FOR VISIT PLAN OF CARE VITAL SIGNS MEDICATIONS Unknown [...] 6yrs Hospitalization History surgery only Hospitalization History [facility] heart 02/2017
--- OUTSIDE RECORDS SUMMARY | 2017-11-05 12:28 | XMS REPORT ---
Author Author CORRALOSBALDO New Organization [facility] Address [address] [place] [address] Care Team Providers Care Ob Scrub Tech Name Role Phone OSBALDO CORRAL Unavailable PROBLEMS Type Condition ICD9-CM Code JIA26-AR Code Onset Dates Condition Status SNOMED Code Problem Primary insomnia F51.01 Active 3511931 Problem Major depressive disorder, recurrent episode, moderate F33.1 Active 715356169 Problem Anxiety, generalized F41.1 Active 95878927 Problem Vitamin B12 deficiency anemia due to intrinsic factor deficiency D51.0 Active 31417258 Problem Migraine without status migrainosus, not intractable, unspecified migraine type G43.909 Active 48826162 Problem Essential hypertension I10 Active 43403240 Problem Chronic pain due to trauma G89.21 Active 488940271 Problem Adjustment disorder with mixed anxiety and depressed mood F43.23 Active 17331217 Problem Seasonal allergic rhinitis, unspecified allergic rhinitis trigger J30.2 Active 898919955 Problem Empty sella syndrome E23.6 Active 568774055 Problem 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 Active 82919163 Problem Pernicious anemia D51.0 Active 87421692 Problem Hypokalemia E87.6 Active 13380651 Problem Other hyperlipidemia E78.4 Active 16256019 ALLERGIES No Information ENCOUNTERS Encounter Location Date Diagnosis [facility] [id number] [place] [address] 65924- 4606 Aug, Essential hypertension I10 ; 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 ; Empty sella syndrome E23.6 ; Pernicious anemia D51.0 ; Anxiety , generalized F41.1 ; Major depressive disorder, recurrent episode, moderate F33.1 ; Primary insomnia F51.01 ; Hypokalemia E87.6 and Chronic pain due to trauma G89.21 [facility] [id number], [place] [address] Aug, [facility] [id number] [place] [address] 62926- 6838 Aug, Anxiety, generalized F41.1 and Osteoarthritis of spine with radiculopathy, lumbosacral region M47.27 [facility] [id number] [place] [address] 35436- 8124 Aug, [facility] [address] [address]- 5822 Aug, Primary insomnia F51.01 [place] [address] 27014- 7464 July, Anxiety, generalized F41.1 and Osteoarthritis of spine with radiculopathy, lumbosacral region M47.27 [facility] [id number] [place] [address] 07380- 7654 July, Essential hypertension I10 [place] [address] 15643- 1016 July, Major depressive disorder, recurrent episode, moderate F33.1 [place] [address] 25701- 8915 July, Primary insomnia F51.01 [facility] [id number] [place] [address] 96632- 0161 Jun, Anxiety, generalized F41.1 and Osteoarthritis of spine with radiculopathy, lumbosacral region M47.27 [facility] [id number] [place] [address] 86938 -8891 Jun, Acute frontal sinusitis, recurrence not specified J01.10 ; Sinus pressure J34.89 ; Post-nasal drip R09.82 and Sore throat J02.9 [facility] [id number] [place] [address] 76124- 3742 Jun, Primary insomnia F51.01 [facility] [address] 76401- 1195 May, Anxiety, generalized F41.1 and Osteoarthritis of spine with radiculopathy, lumbosacral region M47.27 [facility] [address] [id number]- 1836 May, Essential hypertension I10 ; 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 ; Empty sella syndrome E23.6 ; Pernicious anemia D51.0 ; Major depressive disorder, recurrent episode, moderate F33.1 ; Primary insomnia F51.01 ; Other hyperlipidemia E78.4 and Anxiety, generalized F41.1 [facility] [address] 30139- 3231 May, Vitamin B12 deficiency anemia due to intrinsic factor deficiency D51.0 and Pernicious anemia D51.0 [facility] [address] 12[address] -[address]80 May, Migraine without status migrainosus, not intractable, unspecified migraine type G43.909 [facility] [address] 74962- 4225 May, [place] [address] 58222- 1457 May, [place] [address] 16844- 5903 May, Osteoarthritis of spine with radiculopathy, lumbosacral region M47.27 and Primary insomnia F51.01 [facility] [address] 70038- 8309 May, Osteoarthritis of spine with radiculopathy, lumbosacral region M47.27 and Anxiety, generalized F41.1 [facility] [address] 73394- 4484 May, [place] [address] 35753- 9267 Apr, [facility] [address] 14682- 6882 Apr, [place] [address] 39578- 1781 Apr, Anxiety, generalized F41.1 ; Major depressive disorder, recurrent episode, moderate F33.1 ; Moderate episode of recurrent major depressive disorder F33.1 and Adjustment disorder with mixed anxiety and depressed mood F43.23 [place] [address] 76593- 9205 Apr, Major depressive disorder, recurrent episode, moderate F33.1 ; Anxiety, generalized F41.1 ; Essential hypertension I10 ; Primary insomnia F51.01 and 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 [place] [address] 41664- 3033 09 Apr, 2017 Other chest pain R07.89 ; Sinus bradycardia R00.1 ; Essential hypertension I10 and Other hyperlipidemia E78.4 [place] [address] 72417- 9628 08 Apr, 2017 Primary insomnia F51.01 [place] [address] 60680- 6431 06 Apr, 2017 [place] [address] 85184- 3674 Apr, Anxiety, generalized F41.1 [place] [address] 25072- 1208 Apr, Osteoarthritis of spine with radiculopathy, lumbosacral region M47.27 [place] [address] 12112- 3157 Mar, Intractable migraine without aura and without status migrainosus G43.019 and Dyshidrotic hand dermatitis L30.1 [facility] [address] 9[address]16 -7622 Mar, Skin infection L08.9 [place] [id number] [place] [address] 62842- 6313 11 Mar, 2017 [facility] [address] 20267 -9276 10 Mar, 2017 Skin lesion L98.9 [facility] [id number] [place] [address] 56056- 0195 08 Mar, 2017 Primary insomnia F51.01 and Anxiety, generalized F41.1 [facility] [address] 04512- 6807 03 Mar, 2017 Osteoarthritis of spine with radiculopathy, lumbosacral region M47.27 [place] [address] 91960- 8645 Feb, [facility] [address] 47356- 5084 Feb, [facility] [address] 62005- 9562 Feb, Hypokalemia E87.6 [place] [address] 44066- 0069 Feb, Intractable migraine without aura and without status migrainosus G43.019 and Other chest pain R07.89 [facility] [id number] [place] [address] 65449- 1975 Feb, [facility] [address] 17074- 1832 Feb, Osteoarthritis of spine with radiculopathy, lumbosacral region M47.27 [place] [address] 63182- 4794 13 Feb, 2017 Hypokalemia E87.6 [facility] [id number] [place] [address] 71427- 1917 08 Feb, 2017 [facility] [address] 95417- 2422 Feb, Primary insomnia F51.01 and Anxiety, generalized F41.1 [facility] [address] 46526 -0992 Feb, Acute suppurative otitis media of both ears without spontaneous rupture of tympanic membranes, recurrence not specified H66.003 [facility] [address] 53416- 0315 Feb, [facility] [address] 951462- 9137 Jan, Osteoarthritis of spine with radiculopathy, lumbosacral region M47.27 [place] [address] [place] [id number]- 8108 Jan, Primary insomnia F51.01 and Anxiety, generalized F41.1 [place] [address] 66665- 8778 Jan, Chronic pain due to trauma G89.21 ; Left otitis media with effusion H65.92 and Otalgia of left ear H92.02 [facility] [address] 01453 -4799 Jan, Bilateral otitis media with effusion H65.93 [facility] [address] 79205- 2465 Dec, [facility] [address] 40508- 1186 Dec, Primary insomnia F51.01 and Anxiety, generalized F41.1 [facility] [address] 25305- 0105 Nov, [place] [address] 33082- 3800 Nov, [facility] [address] 68508- 5199 Nov, Anxiety, generalized F41.1 [place] [id number] [place] [address] 97092- 1280 12 Nov, 2016 Pernicious anemia D51.0 [place] [address] 23229- 6906 11 Nov, 2016 Primary insomnia F51.01 [place] [address] 87502- 9014 Nov, Encounter for well woman exam with routine gynecological exam Z01.419 ; Screening breast examination Z12.31 and Otalgia of left ear H92.02 [place] [address] 40828- 7973 15 Oct, 2016 [facility] [address] 13213 -7833 14 Oct, 2016 Insect bite (nonvenomous) of right upper arm, initial encounter S40.861A [place] [address] 54381- 4267 Oct, Pernicious anemia D51.0 [place] [address] 54591- 0469 07 Oct, 2016 Anxiety, generalized F41.1 and Pernicious anemia D51.0 [place] [address] 66240- 7595 Oct, Encounter to establish care with new doctor Z76.89 ; Moderate episode of recurrent major depressive disorder F33.1 ; Empty sella syndrome E23.6 ; Seasonal allergic rhinitis, unspecified allergic rhinitis trigger J30.2 ; Essential hypertension I10 and Osteoarthritis of spine with radiculopathy, lumbosacral region M47.27 [place] [address] 00920- 5473 Aug, [place] [address] 55201- 6586 Aug, [place] [address] 15280- 4846 Aug, Anxiety, generalized F41.1 [place] [address] 05297- 8236 Aug, [place] [address] 78120- 2132 Aug, Primary insomnia F51.01 ; Essential hypertension I10 ; Empty sella syndrome E23.6 and Chronic pain due to trauma G89.21 [place] [address] 64500- 1334 July, Primary insomnia F51.01 [facility] [place] [address] 56528 -6225 July, Seasonal allergic rhinitis, unspecified allergic rhinitis trigger J30.2 and Acute suppurative otitis media of right ear without spontaneous rupture of tympanic membrane, recurrence not specified H66.001 [facility] [place] [address] 90675 -2336 July, Acute suppurative otitis media of left ear without spontaneous rupture of tympanic membrane, recurrence not specified H66.002 [place] [address] 99592- 0013 July, [place] [address] 43267- 2848 July, Anxiety, generalized F41.1 [place] [address] 76102- 8717 Jun, [place] [address] 41218- 9213 Jun, Primary insomnia F51.01 [place] [address] 14485- 5748 Jun, Empty sella syndrome E23.6 ; Primary insomnia F51.01 and Hypokalemia E87.6 [place] [address] 48639- 9404 Jun, [facility] [address] [address]- 6019 Jun, [facility] [id number] [place] [address] 40706- 1824 Jun, Empty sella syndrome E23.6 [facility] [id number] [place] [address] 69777- 4642 Jun, Anxiety, generalized F41.1 [facility] [id number] [place] [address] 33475- 2845 Jun, [facility] [id number] [place] [address] 67901- 6786 Jun, Empty sella syndrome E23.6 [facility] [id number] [place] [address] 28298- 8127 May, [facility] [id number] [place] [address] 96480- 1835 May, [facility] [id number] [place] [address] 55586- 4919 May, Empty sella syndrome E23.6 [facility] [id number] [place] [address] 19255- 2655 May, [facility] [id number] [place] [address] 10744- 9343 May, [facility] [id number] [place] [address] 63436- 1316 May, Primary insomnia F51.01 [facility] [id number] [place] [address] 93708- 1845 May, [facility] [id number] [place] [address] 99210- 6321 May, Nausea R11.0 ; Other headache syndrome G44.89 and Malignant hypertension I10 [facility] [id number] [place] [address] 89012- 7221 May, Anxiety, generalized F41.1 [facility] [address] [place] [address] 66060- 3513 Apr, Major depressive disorder, recurrent episode, moderate F33.1 [facility] [id number] [place] [address] 72574- 2165 28 Apr, 2016 Moderate episode of recurrent major depressive disorder F33.1 [facility] [id number] [place] [address] 62970- 8450 27 Apr, 2016 Other chronic postprocedural pain G89.28 [facility] [id number] [place] [address] 99002- 5992 15 Apr, 2016 Major depressive disorder, recurrent episode, moderate F33.1 [facility] [id number] [place] [address] 99166- 1944 07 Apr, 2016 Anxiety, generalized F41.1 [facility] [id number] [place] [address] 58467- 4648 Apr, [facility] [id number] [place] [address] 92627- 3563 Mar, Other chronic postprocedural pain G89.28 ; Status post craniotomy Z98.890 ; Encounter for drug screening Z02.83 and Hematuria R31.9 [place] [address] [place] [address] 47805- 1639 Mar, Major depressive disorder, recurrent episode, moderate F33.1 [facility] [address] [place] [address] 13791- 1605 Mar, [place] [id number] [place] [address] 29411- 4096 Mar, Anxiety, generalized F41.1 [facility] [id number] [place] [address] 19309- 4450 Mar, Anxiety, generalized F41.1 and Pernicious anemia D51.0 [place] [address] 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 [id number] [address]- 7649 Mar, Primary insomnia F51.01 [place] [id number], [place] [address]- 8107 Feb, [facility] [id number], [place] [address]- 1619 Feb, Encounter to establish care Z76.89 ; [...] Frequency Start Date End Date Duration Status Chlorthalidone 25 MG Orally Once a day 1/2 tablet 24h Feb, 90 days Active RESULTS No Results PROCEDURES No [...] 09/14/17 Hospitalization History surgery only Hospitalization History [facility] heart 02/2017
--- OUTSIDE RECORDS SUMMARY | 2017-11-05 12:28 | XMS REPORT ---
Author Author CORRALOSBALDO New Organization [facility] Address [address] [place] [address] Care Team Providers Care Director Of [employer] Name Role Phone OSBALDO CORRAL Unavailable PROBLEMS Type Condition ICD9-CM Code GEQ41-NG Code Onset Dates Condition Status SNOMED Code Problem Primary insomnia F51.01 Active 0923444 Problem Major depressive disorder, recurrent episode, moderate F33.1 Active 112703026 Problem Anxiety, generalized F41.1 Active 64060622 Problem Vitamin B12 deficiency anemia due to intrinsic factor deficiency D51.0 Active 87072916 Problem Migraine without status migrainosus, not intractable, unspecified migraine type G43.909 Active 69971142 Problem Essential hypertension I10 Active 56744837 Problem Chronic pain due to trauma G89.21 Active 825296488 Problem Adjustment disorder with mixed anxiety and depressed mood F43.23 Active 94432124 Problem Seasonal allergic rhinitis, unspecified allergic rhinitis trigger J30.2 Active 016832435 Problem Empty sella syndrome E23.6 Active 031626227 Problem 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 Active 70616235 Problem Pernicious anemia D51.0 Active 25301699 Problem Hypokalemia E87.6 Active 78999226 Problem Other hyperlipidemia E78.4 Active 44620845 ALLERGIES No Information ENCOUNTERS Encounter Location Date Diagnosis [facility] [id number] [place] [address] 58448- 2343 Aug, Essential hypertension I10 ; 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 ; Empty sella syndrome E23.6 ; Pernicious anemia D51.0 ; Anxiety , generalized F41.1 ; Major depressive disorder, recurrent episode, moderate F33.1 ; Primary insomnia F51.01 ; Hypokalemia E87.6 and Chronic pain due to trauma G89.21 [facility] [address] [id number] [address] Aug, [facility] [id number] [place] [address] 12681- 3866 Aug, Anxiety, generalized F41.1 and Osteoarthritis of spine with radiculopathy, lumbosacral region M47.27 [facility] [id number] [place] [address] 45446- 6229 Aug, [facility] [address] 7[address]- 6620 Aug, Primary insomnia F51.01 [place] [address] 20148- 4963 July, Anxiety, generalized F41.1 and Osteoarthritis of spine with radiculopathy, lumbosacral region M47.27 [facility] [id number] [place] [address] 91256- 7284 July, Essential hypertension I10 [place] [address] 65798- 1332 July, Major depressive disorder, recurrent episode, moderate F33.1 [place] [address] 69557- 9993 July, Primary insomnia F51.01 [facility] [id number] [place] [address] 45174- 1602 Jun, Anxiety, generalized F41.1 and Osteoarthritis of spine with radiculopathy, lumbosacral region M47.27 [facility] [id number] [place] [address] 99829 -1877 Jun, Acute frontal sinusitis, recurrence not specified J01.10 ; Sinus pressure J34.89 ; Post-nasal drip R09.82 and Sore throat J02.9 [facility] [id number] [place] [address] 44273- 7404 Jun, Primary insomnia F51.01 [facility] [address] 03312- 7478 May, Anxiety, generalized F41.1 and Osteoarthritis of spine with radiculopathy, lumbosacral region M47.27 [facility] [address] [id number]- 6199 May, Essential hypertension I10 ; 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 ; Empty sella syndrome E23.6 ; Pernicious anemia D51.0 ; Major depressive disorder, recurrent episode, moderate F33.1 ; Primary insomnia F51.01 ; Other hyperlipidemia E78.4 and Anxiety, generalized F41.1 [facility] [address] 06803- 6907 May, Vitamin B12 deficiency anemia due to intrinsic factor deficiency D51.0 and Pernicious anemia D51.0 [facility] [address] 63[address] -7057 May, Migraine without status migrainosus, not intractable, unspecified migraine type G43.909 [facility] [address] 33606- 5028 May, [place] [address] 96340- 8276 May, [place] [address] 16402- 3401 May, Osteoarthritis of spine with radiculopathy, lumbosacral region M47.27 and Primary insomnia F51.01 [facility] [address] 69279- 6226 May, Osteoarthritis of spine with radiculopathy, lumbosacral region M47.27 and Anxiety, generalized F41.1 [facility] [address] 01421- 2568 May, [place] [address] 09560- 5244 Apr, [facility] [address] 93381- 1482 Apr, [place] [address] 05782- 9239 Apr, Anxiety, generalized F41.1 ; Major depressive disorder, recurrent episode, moderate F33.1 ; Moderate episode of recurrent major depressive disorder F33.1 and Adjustment disorder with mixed anxiety and depressed mood F43.23 [place] [address] 66804- 3823 Apr, Major depressive disorder, recurrent episode, moderate F33.1 ; Anxiety, generalized F41.1 ; Essential hypertension I10 ; Primary insomnia F51.01 and 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 [place] [address] 26841- 2398 09 Apr, 2017 Other chest pain R07.89 ; Sinus bradycardia R00.1 ; Essential hypertension I10 and Other hyperlipidemia E78.4 [place] [address] 05556- 7305 08 Apr, 2017 Primary insomnia F51.01 [place] [address] 47155- 7795 06 Apr, 2017 [place] [address] 48945- 0389 Apr, Anxiety, generalized F41.1 [place] [address] 65791- 1191 Apr, Osteoarthritis of spine with radiculopathy, lumbosacral region M47.27 [place] [address] 18014- 3061 Mar, Intractable migraine without aura and without status migrainosus G43.019 and Dyshidrotic hand dermatitis L30.1 [facility] [address] 33878 -1450 Mar, Skin infection L08.9 [place] [id number] [place] [address] 02597- 5506 11 Mar, 2017 [facility] [address] 24561 -3056 10 Mar, 2017 Skin lesion L98.9 [facility] [id number] [place] [address] 81271- 1868 08 Mar, 2017 Primary insomnia F51.01 and Anxiety, generalized F41.1 [facility] [address] 35419- 3592 03 Mar, 2017 Osteoarthritis of spine with radiculopathy, lumbosacral region M47.27 [place] [address] 70421- 4717 Feb, [facility] [address] 69029- 2712 Feb, [facility] [address] 85153- 9988 Feb, Hypokalemia E87.6 [place] [address] 82375- 9728 Feb, Intractable migraine without aura and without status migrainosus G43.019 and Other chest pain R07.89 [facility] [id number] [place] [address] 98533- 5951 Feb, [facility] [address] 97687- 0005 Feb, Osteoarthritis of spine with radiculopathy, lumbosacral region M47.27 [place] [address] 79458- 7097 13 Feb, 2017 Hypokalemia E87.6 [facility] [id number] [place] [address] 54642- 7084 08 Feb, 2017 [facility] [address] 77231- 6198 Feb, Primary insomnia F51.01 and Anxiety, generalized F41.1 [facility] [address] 34357 -7146 Feb, Acute suppurative otitis media of both ears without spontaneous rupture of tympanic membranes, recurrence not specified H66.003 [facility] [address] 04319- 3958 Feb, [facility] [address] 051185- 8320 Jan, Osteoarthritis of spine with radiculopathy, lumbosacral region M47.27 [place] [address] [address]50[address]- 4874 Jan, Primary insomnia F51.01 and Anxiety, generalized F41.1 [place] [address] 98817- 8991 Jan, Chronic pain due to trauma G89.21 ; Left otitis media with effusion H65.92 and Otalgia of left ear H92.02 [facility] [address] 12578 -3171 Jan, Bilateral otitis media with effusion H65.93 [facility] [address] 71882- 4534 Dec, [facility] [address] 48043- 4909 Dec, Primary insomnia F51.01 and Anxiety, generalized F41.1 [facility] [address] 93903- 1269 Nov, [place] [address] 68526- 2766 Nov, [facility] [address] 91242- 4982 Nov, Anxiety, generalized F41.1 [place] [id number] [place] [address] 35931- 1538 12 Nov, 2016 Pernicious anemia D51.0 [place] [address] 98271- 6800 11 Nov, 2016 Primary insomnia F51.01 [place] [address] 20570- 6119 Nov, Encounter for well woman exam with routine gynecological exam Z01.419 ; Screening breast examination Z12.31 and Otalgia of left ear H92.02 [place] [address] 14669- 2207 15 Oct, 2016 [facility] [address] 12656 -9926 14 Oct, 2016 Insect bite (nonvenomous) of right upper arm, initial encounter S40.861A [place] [address] 05035- 7985 Oct, Pernicious anemia D51.0 [place] [address] 27499- 6730 07 Oct, 2016 Anxiety, generalized F41.1 and Pernicious anemia D51.0 [place] [address] 61681- 5620 Oct, Encounter to establish care with new doctor Z76.89 ; Moderate episode of recurrent major depressive disorder F33.1 ; Empty sella syndrome E23.6 ; Seasonal allergic rhinitis, unspecified allergic rhinitis trigger J30.2 ; Essential hypertension I10 and Osteoarthritis of spine with radiculopathy, lumbosacral region M47.27 [place] [address] 15023- 2866 Aug, [place] [address] 34962- 6518 Aug, [place] [address] 43072- 8714 Aug, Anxiety, generalized F41.1 [place] [address] 06485- 4853 Aug, [place] [address] 77727- 6567 Aug, Primary insomnia F51.01 ; Essential hypertension I10 ; Empty sella syndrome E23.6 and Chronic pain due to trauma G89.21 [place] [address] 39336- 9854 July, Primary insomnia F51.01 [facility] [place] [address] 46006 -6654 July, Seasonal allergic rhinitis, unspecified allergic rhinitis trigger J30.2 and Acute suppurative otitis media of right ear without spontaneous rupture of tympanic membrane, recurrence not specified H66.001 [facility] [place] [address] 66496 -2980 July, Acute suppurative otitis media of left ear without spontaneous rupture of tympanic membrane, recurrence not specified H66.002 [place] [address] 82206- 7159 July, [place] [address] 76618- 3115 July, Anxiety, generalized F41.1 [place] [address] 60428- 6544 Jun, [place] [address] 25016- 2025 Jun, Primary insomnia F51.01 [place] [address] 43171- 6213 Jun, Empty sella syndrome E23.6 ; Primary insomnia F51.01 and Hypokalemia E87.6 [place] [address] 40866- 4895 Jun, [facility] [address] [address]- 4600 Jun, [facility] [id number] [place] [address] 78971- 2762 Jun, Empty sella syndrome E23.6 [facility] [id number] [place] [address] 56216- 0374 Jun, Anxiety, generalized F41.1 [facility] [id number] [place] [address] 66499- 5694 Jun, [facility] [id number] [place] [address] 86643- 4058 Jun, Empty sella syndrome E23.6 [facility] [id number] [place] [address] 28883- 6668 May, [facility] [id number] [place] [address] 40049- 4259 May, [facility] [id number] [place] [address] 47130- 3467 May, Empty sella syndrome E23.6 [facility] [id number] [place] [address] 99416- 1297 May, [facility] [id number] [place] [address] 35736- 0076 May, [facility] [id number] [place] [address] 16790- 4709 May, Primary insomnia F51.01 [facility] [id number] [place] [address] 35688- 2533 May, [facility] [id number] [place] [address] 78027- 2242 May, Nausea R11.0 ; Other headache syndrome G44.89 and Malignant hypertension I10 [facility] [id number] [place] [address] 11768- 5531 May, Anxiety, generalized F41.1 [facility] [id number] [place] [address] 39529- 3744 Apr, Major depressive disorder, recurrent episode, moderate F33.1 [facility] [id number] [place] [address] 51471- 0101 28 Apr, 2016 Moderate episode of recurrent major depressive disorder F33.1 [facility] [id number] [place] [address] 81586- 9630 27 Apr, 2016 Other chronic postprocedural pain G89.28 [facility] [id number] [place] [address] 94595- 8518 15 Apr, 2016 Major depressive disorder, recurrent episode, moderate F33.1 [facility] [id number] [place] [address] 71337- 4137 07 Apr, 2016 Anxiety, generalized F41.1 [facility] [id number] [place] [address] 01497- 0523 Apr, [facility] [id number] [place] [address] 14054- 0635 Mar, Other chronic postprocedural pain G89.28 ; Status post craniotomy Z98.890 ; Encounter for drug screening Z02.83 and Hematuria R31.9 [place] [address] [place] [address] 18208- 9824 Mar, Major depressive disorder, recurrent episode, moderate F33.1 [facility] [id number] [place] [address] 08634- 1903 Mar, [place] [id number] [place] [address] 10328- 3945 Mar, Anxiety, generalized F41.1 [facility] [id number] [place] [address] 76980- 0479 Mar, Anxiety, generalized F41.1 and Pernicious anemia D51.0 [place] [address] [facility] [id number] [address]- 7360 Mar, 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 and Status post craniotomy Z98.890 [facility] [address] [facility] [id number] [address]- 1115 Mar, Primary insomnia F51.01 [place] [id number] [address]- 0493 Feb, [facility] [address] [facility] [id number] [address]- 5860 Feb, Encounter to establish care Z76.89 ; [...] age 6yrs Surgical History eye surgery glaucoma 6/18/18 Hospitalization History surgery only Hospitalization History [facility] 02/2017
--- OUTSIDE RECORDS SUMMARY | 2017-11-05 12:29 | XMS REPORT ---
Author Author OSBALDO CORRAL Organization [facility] Address [address] [place] [address] Care Team Providers Care District Engineer Name Role Phone OSBALDO CORRAL Unavailable PROBLEMS Type Condition ICD9-CM Code MWM04-KI Code Onset Dates Condition Status SNOMED Code Problem Primary insomnia F51.01 Active 8345884 Problem Major depressive disorder, recurrent episode, moderate F33.1 Active 108125080 Problem Anxiety, generalized F41.1 Active 90020238 Problem Vitamin B12 deficiency anemia due to intrinsic factor deficiency D51.0 Active 75663451 Problem Migraine without status migrainosus, not intractable, unspecified migraine type G43.909 Active 79786564 Problem Essential hypertension I10 Active 76559867 Problem Chronic pain due to trauma G89.21 Active 559206253 Problem Adjustment disorder with mixed anxiety and depressed mood F43.23 Active 36102089 Problem Seasonal allergic rhinitis, unspecified allergic rhinitis trigger J30.2 Active 729813447 Problem Empty sella syndrome E23.6 Active 299470067 Problem 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 Active 07478856 Problem Pernicious anemia D51.0 Active 63267067 Problem Hypokalemia E87.6 Active 33657176 Problem Other hyperlipidemia E78.4 Active 49391763 ALLERGIES No Information ENCOUNTERS Encounter Location Date Diagnosis [facility] [address] [address] Aug, [facility] [address], [place] [address] Aug, Primary insomnia F51.01 [facility] [address], [place] [address] July, Anxiety, generalized F41.1 and Osteoarthritis of spine with radiculopathy, lumbosacral region M47.27 [facility] [address] [place] [id number] [place] [address]952- 7023 July, Essential hypertension I10 [place] [address] [address] July, Major depressive disorder, recurrent episode, moderate F33.1 [place] [address] [place] [id number] [place] [address] 62075- 1361 July, Primary insomnia F51.01 [place] [address] [address]- [address]79 Jun, Anxiety, generalized F41.1 and Osteoarthritis of spine with radiculopathy, lumbosacral region M47.27 [facility] [place] [address] [place] [id number] [place] [address]6444 -8392 Jun, Acute frontal sinusitis, recurrence not specified J01.10 ; Sinus pressure J34.89 ; Post-nasal drip R09.82 and Sore throat J02.9 [place] [address] [place] [id number] [place] [address] 26158- 4954 Jun, Primary insomnia F51.01 [place] [address] [place] [id number] [place] [address] 58203- 3749 May, Anxiety, generalized F41.1 and Osteoarthritis of spine with radiculopathy, lumbosacral region M47.27 [place] [address] [place] [id number] [place] [address] 24616- 5022 May, Essential hypertension I10 ; 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909 [facility] [address] [place] [id number] [place] [address] 18826- 3763 May, [facility] [address] [address]- [address] May, [place] [address] 6[address]05- 6935 May, Osteoarthritis of spine with radiculopathy, lumbosacral region M47.27 and Primary insomnia F51.01 [place] [address] 93912- 8211 May, Osteoarthritis of spine with radiculopathy, lumbosacral region M47.27 and Anxiety, generalized F41.1 [place] [address] [address]65- 5150 May, [place] [address] 20854- 6578 28 Apr, 2017 [place] [address] 15541- 5129 Apr, [place] [address] 34008- 0615 13 Apr, 2017 Anxiety, generalized F41.1 ; Major depressive disorder, recurrent episode, moderate F33.1 ; Moderate episode of recurrent major depressive disorder F33.1 and Adjustment disorder with mixed anxiety and depressed mood F43.23 [place] [address] 28874- 9463 13 Apr, 2017 Major depressive disorder, recurrent episode, moderate F33.1 ; Anxiety, generalized F41.1 ; Essential hypertension I10 ; Primary insomnia F51.01 and 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 [place] [address] 29810- 5481 09 Apr, 2017 Other chest pain R07.89 ; Sinus bradycardia R00.1 ; Essential hypertension I10 and Other hyperlipidemia E78.4 [place] [address] 91362- 1197 Apr, Primary insomnia F51.01 [place] [address] 90717- 7917 Apr, [place] [address] 75938- 4843 Apr, Anxiety, generalized F41.1 [place] [address] 92122- 4912 Apr, Osteoarthritis of spine with radiculopathy, lumbosacral region M47.27 [place] [address] 96257- 7993 Mar, Intractable migraine without aura and without status migrainosus G43.019 and Dyshidrotic hand dermatitis L30.1 [facility] [place] [address] 38[address] -6847 Mar, Skin infection L08.9 [place] [address] 19959- 7285 Mar, [facility] [place] [address] 01691 -0258 Mar, Skin lesion L98.9 [place] [address] 72124- 3078 Mar, Primary insomnia F51.01 and Anxiety, generalized F41.1 [place] [address] 94012- 4805 Mar, Osteoarthritis of spine with radiculopathy, lumbosacral region M47.27 [place] [address] 08161- 1550 Feb, [place] [address] [place] [id number] [place] [address] 14111- 1302 Feb, [facility] [address] 97916- 5265 Feb, Hypokalemia E87.6 [facility] [address] [place] [id number] [place] [address] 13158- 9297 Feb, Intractable migraine without aura and without status migrainosus G43.019 and Other chest pain R07.89 [facility] [address] [place] [id number] [place] [address] 68689- 5647 Feb, [place] [address] 93922- 1090 Feb, Osteoarthritis of spine with radiculopathy, lumbosacral region M47.27 [place] [address] [place] [id number] [place] [address] 28867- 0383 Feb, Hypokalemia E87.6 [facility] [address] [place] [id number] [place] [address] 02747- 3835 Feb, [place] [address] 98204- 7307 Feb, Primary insomnia F51.01 and Anxiety, generalized F41.1 [facility] [address] [place] [id number] [place] [address] 13275 -8778 Feb, Acute suppurative otitis media of both ears without spontaneous rupture of tympanic membranes, recurrence not specified H66.003 [facility] [address] [place] [id number] [place] [address] 00361- 0051 Feb, [place] [address] 50891- 5048 Jan, Osteoarthritis of spine with radiculopathy, lumbosacral region M47.27 [facility] [address] [place] [id number] [place] [address] 35370- 2479 Jan, Primary insomnia F51.01 and Anxiety, generalized F41.1 [place] [address] [place] [id number] [place] [address] 08986- 3711 02 Jan, 2017 Chronic pain due to trauma G89.21 ; Left otitis media with effusion H65.92 and Otalgia of left ear H92.02 [facility] [address] [address] -6357 Jan, Bilateral otitis media with effusion H65.93 [place] [address] 40497- 2754 Dec, [place] [address] [address] 2456 Dec, Primary insomnia F51.01 and Anxiety, generalized F41.1 [place] [address] 50269- 8064 Nov, [place] [address] 17989- 0194 Nov, [place] [address] 82496- 9269 Nov, Anxiety, generalized F41.1 [place] [address] 70888- 7945 Nov, Pernicious anemia D51.0 [place] [address] 07724- 4127 Nov, Primary insomnia F51.01 [place] [address] 31160- 7117 Nov, Encounter for well woman exam with routine gynecological exam Z01.419 ; Screening breast examination Z12.31 and Otalgia of left ear H92.02 [place] [address] [id number] [place] [address] 84193- 9587 Oct, [facility] [address] 24146 -7044 Oct, Insect bite (nonvenomous) of right upper arm, initial encounter S40.861A [facility] [address] 94770- 8369 Oct, Pernicious anemia D51.0 [place] [address] 58891- 8978 Oct, Anxiety, generalized F41.1 and Pernicious anemia D51.0 [place] [address] 46196- 2376 Oct, Encounter to establish care with new doctor Z76.89 ; Moderate episode of recurrent major depressive disorder F33.1 ; Empty sella syndrome E23.6 ; Seasonal allergic rhinitis, unspecified allergic rhinitis trigger J30.2 ; Essential hypertension I10 and Osteoarthritis of spine with radiculopathy, lumbosacral region M47.27 [place] [address] 32407- 5965 Aug, [facility] [address] 03591- 8820 Aug, [facility] [address] 79762- 2800 13 Aug, 2016 Anxiety, generalized F41.1 [place] [address] 23978- 2337 Aug, [facility] [address] 90130- 8339 07 Aug, 2016 Primary insomnia F51.01 ; Essential hypertension I10 ; Empty sella syndrome E23.6 and Chronic pain due to trauma G89.21 [place] [address] 33175- 3057 July, Primary insomnia F51.01 [facility] [address] [place] [id number] [place] [address] 49880 -1232 July, Seasonal allergic rhinitis, unspecified allergic rhinitis trigger J30.2 and Acute suppurative otitis media of right ear without spontaneous rupture of tympanic membrane, recurrence not specified H66.001 [facility] [address] [place] [id number] [place] [address] 74944 -7012 July, Acute suppurative otitis media of left ear without spontaneous rupture of tympanic membrane, recurrence not specified H66.002 [facility] [address] [place] [id number] [place] [address] 30503- 8816 July, [facility] [address] 56230- 2014 July, Anxiety, generalized F41.1 [facility] [address] 55993- 1574 Jun, [facility] [address] 14945- 0348 Jun, Primary insomnia F51.01 [facility] [address] 62656- 4942 Jun, Empty sella syndrome E23.6 ; Primary insomnia F51.01 and Hypokalemia E87.6 [facility] [address] 09581- 8788 Jun, [facility] [address] [place] [id number] [place] [address] 04882- 1909 Jun, [facility] [address] [place] [id number] [place] [address] 22963- 6076 Jun, Empty sella syndrome E23.6 [facility] [address] [place] [id number] [place] [address] 77571- 3781 Jun, Anxiety, generalized F41.1 [facility] [address] 86205- 3459 Jun, [facility] [address] [place] [id number] [place] [address] 57821- 8794 Jun, Empty sella syndrome E23.6 [facility] [address] [place] [address]- 8987 31 May, 2016 [facility] [address] [place] [address] [id number] [place] [address] 90934- 3569 May, [facility] [address] [id number] [place] [address] 59430- 8912 30 May, 2016 Empty sella syndrome E23.6 [facility] [address] 80286- 2845 May, [facility] [address] 59505- 6916 May, [facility] [address] 32134- 7726 May, Primary insomnia F51.01 [facility] [address] [place] [id number] [place] [address] 67801- 4196 May, [facility] [address] 83936- 0862 May, Nausea R11.0 ; Other headache syndrome G44.89 and Malignant hypertension I10 [facility] [address] [place] [id number] [place] [address] 12402- 7710 07 May, 2016 Anxiety, generalized F41.1 [facility] [address] [place] [id number] [place] [address] 32045- 4047 28 Apr, 2016 Major depressive disorder, recurrent episode, moderate F33.1 [facility] [address] [address] [id number] [place] [address] 99250- 7011 28 Apr, 2016 Moderate episode of recurrent major depressive disorder F33.1 [facility] [address] [place] [id number] [place] [address] 39322- 0814 27 Apr, 2016 Other chronic postprocedural pain G89.28 [facility] [address] [place] [address] [id number] [place] [address] 66405- 1702 15 Apr, 2016 Major depressive disorder, recurrent episode, moderate F33.1 [facility] [address] [place] [id number] [place] [address] 10610- 8778 07 Apr, 2016 Anxiety, generalized F41.1 [place] [address] [place] [id number] [place] [address] 07487- 4180 03 Apr, 2016 [place] [address] [place] [id number] [place] [address] 81070- 3847 Mar, Other chronic postprocedural pain G89.28 ; Status post craniotomy Z98.890 ; Encounter for drug screening Z02.83 and Hematuria R31.9 [place] [address] [place] [id number] [place] [address] 83043- 2559 Mar, Major depressive disorder, recurrent episode, moderate F33.1 [place] [address] [place] [id number] [place] [address] 25971- 8416 Mar, [place] [address] 17550- 9648 Mar, Anxiety, generalized F41.1 [place] [address] [place] [id number] [place] [address] 37532- 3785 Mar, Anxiety, generalized F41.1 and Pernicious anemia D51.0 [place] [address] [place] [id number] [place] [address] 17473- 0070 Mar, 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 and Status post craniotomy Z98.890 [place] [address] [place] [id number] [place] [address] 67345- 5060 Mar, Primary insomnia F51.01 [place] [address] [place] [id number] [place] [address] 35522- 3881 Feb, [place] [address] [place] [id number] [place] [address] 20363- 3952 Feb, Encounter to establish care Z76.89 ; Status post craniotomy Z98.890 ; 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
--- OUTSIDE RECORDS SUMMARY | 2017-11-05 12:30 | XMS REPORT ---
Author Author CORRALOSBALDO New Organization [facility] Address [address] [place] [address] Care Team Providers Care Stratigrapher Name Role Phone OSBALDO CORRAL Unavailable PROBLEMS Type Condition ICD9-CM Code TAT38-XR Code Onset Dates Condition Status SNOMED Code Problem Primary insomnia F51.01 Active 4079762 Problem Major depressive disorder, recurrent episode, moderate F33.1 Active 141649223 Problem Anxiety, generalized F41.1 Active 62131629 Problem Vitamin B12 deficiency anemia due to intrinsic factor deficiency D51.0 Active 28716545 Problem Migraine without status migrainosus, not intractable, unspecified migraine type G43.909 Active 55518348 Problem Essential hypertension I10 Active 46548052 Problem Chronic pain due to trauma G89.21 Active 748079787 Problem Adjustment disorder with mixed anxiety and depressed mood F43.23 Active 08156852 Problem Seasonal allergic rhinitis, unspecified allergic rhinitis trigger J30.2 Active 580639318 Problem Empty sella syndrome E23.6 Active 283868367 Problem 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 Active 22597984 Problem Pernicious anemia D51.0 Active 06481497 Problem Hypokalemia E87.6 Active 79842036 Problem Other hyperlipidemia E78.4 Active 71947858 ALLERGIES No Information ENCOUNTERS Encounter Location Date Diagnosis [facility] [address] [address] Aug, [facility] [address] [address] 18 Aug, 2017 Anxiety, generalized F41.1 and Osteoarthritis of spine with radiculopathy, lumbosacral region M47.27 [facility] [id number] [address] Aug, [facility] [id number] [place] [address] 24958- 6467 Aug, Primary insomnia F51.01 [place] [address] [address] July, Anxiety, generalized F41.1 and Osteoarthritis of spine with radiculopathy, lumbosacral region M47.27 [place] [address] [address] July, Essential hypertension I10 [place] [address] [address]- 2641 July, Major depressive disorder, recurrent episode, moderate F33.1 [place] [address] 37[address]- 1476 July, Primary insomnia F51.01 [place] [id number] [place] [address] 84945- 3566 Jun, Anxiety, generalized F41.1 and Osteoarthritis of spine with radiculopathy, lumbosacral region M47.27 [facility] [id number] [place] [address] 39363 -6343 Jun, Acute frontal sinusitis, recurrence not specified J01.10 ; Sinus pressure J34.89 ; Post-nasal drip R09.82 and Sore throat J02.9 [place] [id number] [place] [address] 27090- 7389 Jun, Primary insomnia F51.01 [place] [id number] [place] [address] 80910- 5514 May, Anxiety, generalized F41.1 and Osteoarthritis of spine with radiculopathy, lumbosacral region M47.27 [place] [id number] [place] [address] 50058- 2744 May, Essential hypertension I10 ; 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 ; Empty sella syndrome E23.6 ; Pernicious anemia D51.0 ; Major depressive disorder, recurrent episode, moderate F33.1 ; Primary insomnia F51.01 ; Other hyperlipidemia E78.4 and Anxiety, generalized F41.1 [place] [id number] [place] [address] 13392- 2793 May, Vitamin B12 deficiency anemia due to intrinsic factor deficiency D51.0 and Pernicious anemia D51.0 [facility] [id number] [place] [address] 75715 -1817 May, Migraine without status migrainosus, not intractable, unspecified migraine type G43.909 [facility] [id number] [place] [address] 25328- 8102 May, [facility] [id number] [place] [address] 15393- 0450 May, [place] [id number] [place] [address] 38551- 8762 May, Osteoarthritis of spine with radiculopathy, lumbosacral region M47.27 and Primary insomnia F51.01 [facility] [id number] [place] [address] 68821- 9919 May, Osteoarthritis of spine with radiculopathy, lumbosacral region M47.27 and Anxiety, generalized F41.1 [place] [id number] [place] [address] 74052- 7060 May, [place] [id number] [place] [address] 60890- 5025 28 Apr, 2017 [facility] [id number] [place] [address] 69714- 6806 19 Apr, 2017 [place] [id number] [place] [address] 43880- 3214 13 Apr, 2017 Anxiety, generalized F41.1 ; Major depressive disorder, recurrent episode, moderate F33.1 ; Moderate episode of recurrent major depressive disorder F33.1 and Adjustment disorder with mixed anxiety and depressed mood F43.23 [place] [address] 46069- 3145 13 Apr, 2017 Major depressive disorder, recurrent episode, moderate F33.1 ; Anxiety, generalized F41.1 ; Essential hypertension I10 ; Primary insomnia F51.01 and 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 [place] [address] 22869- 5429 09 Apr, 2017 Other chest pain R07.89 ; Sinus bradycardia R00.1 ; Essential hypertension I10 and Other hyperlipidemia E78.4 [place] [address] 24960- 2834 08 Apr, 2017 Primary insomnia F51.01 [place] [address] 88852- 8634 06 Apr, [address] 30682- 4958 02 Apr, 2017 Anxiety, generalized F41.1 [place] [address] 42849- 4479 Apr, Osteoarthritis of spine with radiculopathy, lumbosacral region M47.[address] 0[address]35- 1712 Mar, Intractable migraine without aura and without status migrainosus G43.019 and Dyshidrotic hand dermatitis L30.1 [facility] [address] [address] Mar, Skin infection L08.[address] [address]35- 7987 Mar, [facility] [address] [address]82 Mar, Skin lesion L98.[address] 84515- 0310 Mar, Primary insomnia F51.01 and Anxiety, generalized F41.1 [facility] [address] [place] [address] 59284- 0020 Mar, Osteoarthritis of spine with radiculopathy, lumbosacral region M47.27 [facility] [id number] [place] [address] 49339- 6555 Feb, [facility] [id number] [place] [address] 66113- 3508 Feb, [facility] [address] 82287- 7074 Feb, Hypokalemia E87.6 [place] [address] 66537- 6166 Feb, Intractable migraine without aura and without status migrainosus G43.019 and Other chest pain R07.89 [place] [address] 36306- 6072 Feb, [place] [id number] [place] [address] 33261- 2758 Feb, Osteoarthritis of spine with radiculopathy, lumbosacral region M47.27 [place] [id number] [place] [address] 61072- 5948 Feb, Hypokalemia E87.6 [place] [id number] [place] [address] 86481- 1991 Feb, [facility] [address] 68733- 8943 Feb, Primary insomnia F51.01 and Anxiety, generalized F41.1 [facility] [id number] [place] [address] 11307 -6373 Feb, Acute suppurative otitis media of both ears without spontaneous rupture of tympanic membranes, recurrence not specified H66.003 [facility] [id number] [place] [address] 40989- 6750 Feb, [facility] [id number] [place] [address] 49735- 4761 13 Jan, 2017 Osteoarthritis of spine with radiculopathy, lumbosacral region M47.27 [facility] [id number] [place] [address] 03022- 3904 07 Jan, 2017 Primary insomnia F51.01 and Anxiety, generalized F41.1 [place] [address] 78324- 9900 02 Jan, 2017 Chronic pain due to trauma G89.21 ; Left otitis media with effusion H65.92 and Otalgia of left ear H92.02 [facility] [id number] [place] [address] 78349 -9175 Jan, Bilateral otitis media with effusion H65.93 [facility] [id number] [place] [address] 16486- 9646 Dec, [place] [address] 97682- 2105 Dec, Primary insomnia F51.01 and Anxiety, generalized F41.1 [place] [address] 28285- 8135 Nov, [facility] [id number] [place] [address] 45681- 6693 Nov, [facility] [address] 94790- 5141 Nov, Anxiety, generalized F41.1 [place] [id number] [place] [address] 76056- 6397 Nov, Pernicious anemia D51.0 [place] [address] 35617- 1855 Nov, Primary insomnia F51.01 [facility] [id number] [place] [address] 15679- 1537 Nov, Encounter for well woman exam with routine gynecological exam Z01.419 ; Screening breast examination Z12.31 and Otalgia of left ear H92.02 [place] [address] 06777- 2253 15 Oct, 2016 [facility] [address] 16914 -3807 14 Oct, 2016 Insect bite (nonvenomous) of right upper arm, initial encounter S40.861A [place] [address] 01100- 1241 11 Oct, 2016 Pernicious anemia D51.0 [place] [address] 72533- 8700 07 Oct, 2016 Anxiety, generalized F41.1 and Pernicious anemia D51.0 [place] [address] 38937- 7747 01 Oct, 2016 Encounter to establish care with new doctor Z76.89 ; Moderate episode of recurrent major depressive disorder F33.1 ; Empty sella syndrome E23.6 ; Seasonal allergic rhinitis, unspecified allergic rhinitis trigger J30.2 ; Essential hypertension I10 and Osteoarthritis of spine with radiculopathy, lumbosacral region M47.27 [place] [id number] [place] [address] 56820- 0966 28 Aug, 2016 [place] [id number] [place] [address] 36264- 6858 27 Aug, 2016 [place] [address] 72540- 1778 13 Aug, 2016 Anxiety, generalized F41.1 [place] [address] 74365- 4440 08 Aug, 2016 [place] [address] 27402- 0868 07 Aug, 2016 Primary insomnia F51.01 ; Essential hypertension I10 ; Empty sella syndrome E23.6 and Chronic pain due to trauma G89.21 [place] [id number] [place] [address] 10257- 6270 July, Primary insomnia F51.01 [facility] [id number] [place] [address] 85947 -1344 July, Seasonal allergic rhinitis, unspecified allergic rhinitis trigger J30.2 and Acute suppurative otitis media of right ear without spontaneous rupture of tympanic membrane, recurrence not specified H66.001 [facility] [id number] [place] [address] 76654 -1165 July, Acute suppurative otitis media of left ear without spontaneous rupture of tympanic membrane, recurrence not specified H66.002 [place] [id number] [place] [address] 82319- 8728 July, [place] [address] 15916- 9638 July, Anxiety, generalized F41.1 [place] [id number] [place] [address] 17615- 8760 Jun, [place] [id number] [place] [address] 88947- 2261 Jun, Primary insomnia F51.01 [place] [id number] [place] [address] 08025- 5440 Jun, Empty sella syndrome E23.6 ; Primary insomnia F51.01 and Hypokalemia E87.6 [place] [id number] [place] [address] 26518- 5086 Jun, [place] [id number] [place] [address] 35447- 9807 Jun, [place] [address] 44074- 8753 Jun, Empty sella syndrome E23.6 [place] [id number] [place] [address] 81024- 6090 Jun, Anxiety, generalized F41.1 [facility] [address] [address]- 8170 Jun, [facility] [id number] [place] [address] 09199- 0526 Jun, Empty sella syndrome E23.6 [facility] [id number] [place] [address] 47471- 7845 May, [facility] [id number] [place] [address] 31217- 8466 May, [facility] [id number] [place] [address] 75819- 0931 May, Empty sella syndrome E23.6 [facility] [id number] [place] [address] 36604- 9352 May, [facility] [id number] [place] [address] 94886- 6861 May, [facility] [id number] [place] [address] 11640- 5709 May, Primary insomnia F51.01 [facility] [id number] [place] [address] 64643- 2698 May, [facility] [id number] [place] [address] 41584- 8348 May, Nausea R11.0 ; Other headache syndrome G44.89 and Malignant hypertension I10 [facility] [id number] [place] [address] 87417- 5653 May, Anxiety, generalized F41.1 [facility] [id number] [place] [address] 49446- 8853 Apr, Major depressive disorder, recurrent episode, moderate F33.1 [facility] [id number] [place] [address] 51290- 2159 Apr, Moderate episode of recurrent major depressive disorder F33.1 [facility] [id number] [place] [address] 53858- 9142 27 Apr, 2016 Other chronic postprocedural pain G89.28 [place] [id number] [place] [address] 76980- 1622 15 Apr, 2016 Major depressive disorder, recurrent episode, moderate F33.1 [place] [id number] [place] [address] 97937- 5667 07 Apr, 2016 Anxiety, generalized F41.1 [place] [id number] [place] [address] 74633- 9870 03 Apr, 2016 [place] [address] 81032- 6259 Mar, Other chronic postprocedural pain G89.28 ; Status post craniotomy Z98.890 ; Encounter for drug screening Z02.83 and Hematuria R31.9 [place] [id number] [place] [address] 51613- 8692 Mar, Major depressive disorder, recurrent episode, moderate F33.1 [place] [id number] [place] [address] 70714- 4403 Mar, [place] [id number] [place] [address] 13798- 8236 Mar, Anxiety, generalized F41.1 [place] [id number] [place] [address] 13718- 2623 Mar, Anxiety, generalized F41.1 and Pernicious anemia D51.0 [place] [id number] [place] [address] 58358- 0156 Mar, 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 and Status post craniotomy Z98.890 [place] [id number] [place] [address] 95607- 4070 Mar, Primary insomnia F51.01 [place] [id number] [place] [address] 03959- 6030 Feb, [facility] [address] [facility] [id number] [address] Feb, Encounter to establish care Z76.89 ; [...] Frequency Start Date End Date Duration Status Amlodipine Besylate 5 MG Orally Once a day 1 tablet 24h Feb, 90 days Active Chlorthalidone 25 MG Orally Once [...] History surgery only Hospitalization History [facility] 02/2017
--- OUTSIDE RECORDS SUMMARY | 2017-11-05 12:30 | XMS REPORT ---
Author Author OSBALDO CORRAL Organization [facility] Address [address] [place] [address] Care Team Providers Care Furniture Decals Inspector Name Role Phone OSBALDO CORRAL Unavailable PROBLEMS Type Condition ICD9-CM Code TLV69-KT Code Onset Dates Condition Status SNOMED Code Problem Primary insomnia F51.01 Active 1294687 Problem Major depressive disorder, recurrent episode, moderate F33.1 Active 117843832 Problem Anxiety, generalized F41.1 Active 81036591 Problem Vitamin B12 deficiency anemia due to intrinsic factor deficiency D51.0 Active 92573618 Problem Migraine without status migrainosus, not intractable, unspecified migraine type G43.909 Active 56644242 Problem Essential hypertension I10 Active 94397008 Problem Chronic pain due to trauma G89.21 Active 744391028 Problem Adjustment disorder with mixed anxiety and depressed mood F43.23 Active 90739093 Problem Seasonal allergic rhinitis, unspecified allergic rhinitis trigger J30.2 Active 613662873 Problem Empty sella syndrome E23.6 Active 766202259 Problem 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 Active 43472672 Problem Pernicious anemia D51.0 Active 41584828 Problem Hypokalemia E87.6 Active 27723968 Problem Other hyperlipidemia E78.4 Active 54074669 ALLERGIES No Information ENCOUNTERS Encounter Location Date Diagnosis [facility] [address] [address] Aug, [facility] [address], [place] [address] Aug, Primary insomnia F51.01 [facility] [address], [place] [address] July, Anxiety, generalized F41.1 and Osteoarthritis of spine with radiculopathy, lumbosacral region M47.27 [facility] [address] [place] [id number] [place] [address] 73290- 0025 July, Essential hypertension I10 [place] [address] [address] July, Major depressive disorder, recurrent episode, moderate F33.1 [place] [address] [place] [id number] [place] [address] 43870- 1791 July, Primary insomnia F51.01 [place] [address] 30452- 2062 Jun, Anxiety, generalized F41.1 and Osteoarthritis of spine with radiculopathy, lumbosacral region M47.27 [facility] [place] [address] [place] [id number] [place] [address] 92455 -9981 Jun, Acute frontal sinusitis, recurrence not specified J01.10 ; Sinus pressure J34.89 ; Post-nasal drip R09.82 and Sore throat J02.9 [place] [address] [place] [id number] [place] [address] 68099- 2661 Jun, Primary insomnia F51.01 [place] [address] [place] [id number] [place] [address] 57016- 1942 May, Anxiety, generalized F41.1 and Osteoarthritis of spine with radiculopathy, lumbosacral region M47.27 [place] [address] [place] [id number] [place] [address] 81588- 0791 May, Essential hypertension I10 ; 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 ; Empty sella syndrome E23.6 ; Pernicious anemia D51.0 ; Major depressive disorder, recurrent episode, moderate F33.1 ; Primary insomnia F51.01 ; Other hyperlipidemia E78.4 and Anxiety, generalized F41.1 [place] [address] [place] [id number] [place] [address] 13625- 9946 May, Vitamin B12 deficiency anemia due to intrinsic factor deficiency D51.0 and Pernicious anemia D51.0 [facility] [address] [place] [id number] [place] [address] 68408 -6437 May, Migraine without status migrainosus, not intractable, unspecified migraine type G43.909 [facility] [address] [place] [id number] [place] [address] 66820- 2263 May, [facility] [address] 6[address]- [address] May, [place] [address] 46867- 9066 May, Osteoarthritis of spine with radiculopathy, lumbosacral region M47.27 and Primary insomnia F51.01 [place] [address] 56819- 3860 May, Osteoarthritis of spine with radiculopathy, lumbosacral region M47.27 and Anxiety, generalized F41.1 [place] [address] 77471- 1389 May, [place] [address] 20938- 0612 28 Apr, 2017 [place] [address] 13901- 5490 Apr, [place] [address] 01377- 1737 13 Apr, 2017 Anxiety, generalized F41.1 ; Major depressive disorder, recurrent episode, moderate F33.1 ; Moderate episode of recurrent major depressive disorder F33.1 and Adjustment disorder with mixed anxiety and depressed mood F43.23 [place] [address] 43605- 2452 13 Apr, 2017 Major depressive disorder, recurrent episode, moderate F33.1 ; Anxiety, generalized F41.1 ; Essential hypertension I10 ; Primary insomnia F51.01 and 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 [place] [address] 85329- 2704 09 Apr, 2017 Other chest pain R07.89 ; Sinus bradycardia R00.1 ; Essential hypertension I10 and Other hyperlipidemia E78.4 [place] [address] 99435- 2571 Apr, Primary insomnia F51.01 [place] [address] 14617- 0055 Apr, [place] [address] 59248- 5786 Apr, Anxiety, generalized F41.1 [place] [address] 16134- 4808 Apr, Osteoarthritis of spine with radiculopathy, lumbosacral region M47.27 [place] [address] 44847- 5240 Mar, Intractable migraine without aura and without status migrainosus G43.019 and Dyshidrotic hand dermatitis L30.1 [facility] [place] [address] 738[address] -6099 Mar, Skin infection L08.9 [place] [address] 55242- 6834 Mar, [facility] [place] [address] 11095 -6791 Mar, Skin lesion L98.9 [place] [address] 55450- 0473 Mar, Primary insomnia F51.01 and Anxiety, generalized F41.1 [place] [address] 39229- 9549 Mar, Osteoarthritis of spine with radiculopathy, lumbosacral region M47.27 [place] [address] 32646- 6302 Feb, [place] [address] [place] [id number] [place] [address] 60238- 8459 Feb, [facility] [address] 42468- 8668 Feb, Hypokalemia E87.6 [facility] [address] [place] [id number] [place] [address] 65430- 5480 Feb, Intractable migraine without aura and without status migrainosus G43.019 and Other chest pain R07.89 [facility] [address] [place] [id number] [place] [address] 55093- 4047 Feb, [place] [address] 51056- 6129 Feb, Osteoarthritis of spine with radiculopathy, lumbosacral region M47.27 [place] [address] [place] [id number] [place] [address] 14964- 9161 Feb, Hypokalemia E87.6 [facility] [address] [place] [id number] [place] [address] 71193- 2484 Feb, [place] [address] 06871- 4511 Feb, Primary insomnia F51.01 and Anxiety, generalized F41.1 [facility] [address] [place] [id number] [place] [address] 67815 -4043 Feb, Acute suppurative otitis media of both ears without spontaneous rupture of tympanic membranes, recurrence not specified H66.003 [facility] [address] [place] [id number] [place] [address] 80078- 1693 Feb, [place] [address] 86298- 8380 Jan, Osteoarthritis of spine with radiculopathy, lumbosacral region M47.27 [facility] [address] [place] [id number] [place] [address] 16955- 2031 Jan, Primary insomnia F51.01 and Anxiety, generalized F41.1 [place] [address] [place] [id number] [place] [address] 24214- 9201 02 Jan, 2017 Chronic pain due to trauma G89.21 ; Left otitis media with effusion H65.92 and Otalgia of left ear H92.02 [facility] [address] 7[address]31 Jan, Bilateral otitis media with effusion H65.93 [place] [address] 32318- 9681 Dec, [place] [address] 27918 6226 Dec, Primary insomnia F51.01 and Anxiety, generalized F41.1 [place] [address] 48007- 6979 Nov, [place] [address] 05588- 8827 Nov, [place] [address] 93262- 5077 Nov, Anxiety, generalized F41.1 [place] [address] 69430- 1731 Nov, Pernicious anemia D51.0 [place] [address] 44911- 3221 Nov, Primary insomnia F51.01 [place] [address] 89618- 6397 Nov, Encounter for well woman exam with routine gynecological exam Z01.419 ; Screening breast examination Z12.31 and Otalgia of left ear H92.02 [place] [address] [place] [id number] [place] [address] 93731- 0484 Oct, [facility] [address] 45692 -5079 Oct, Insect bite (nonvenomous) of right upper arm, initial encounter S40.861A [facility] [address] 74873- 6392 Oct, Pernicious anemia D51.0 [place] [address] 01426- 7412 Oct, Anxiety, generalized F41.1 and Pernicious anemia D51.0 [place] [address] 97791- 5969 Oct, Encounter to establish care with new doctor Z76.89 ; Moderate episode of recurrent major depressive disorder F33.1 ; Empty sella syndrome E23.6 ; Seasonal allergic rhinitis, unspecified allergic rhinitis trigger J30.2 ; Essential hypertension I10 and Osteoarthritis of spine with radiculopathy, lumbosacral region M47.27 [place] [address] 85585- 9906 Aug, [facility] [address] 18014- 8689 Aug, [facility] [address] 69305- 8408 13 Aug, 2016 Anxiety, generalized F41.1 [place] [address] 30671- 7919 Aug, [facility] [address] 86582- 8708 07 Aug, 2016 Primary insomnia F51.01 ; Essential hypertension I10 ; Empty sella syndrome E23.6 and Chronic pain due to trauma G89.21 [place] [address] 03902- 0856 July, Primary insomnia F51.01 [facility] [address] [place] [id number] [place] [address] 16136 -1394 July, Seasonal allergic rhinitis, unspecified allergic rhinitis trigger J30.2 and Acute suppurative otitis media of right ear without spontaneous rupture of tympanic membrane, recurrence not specified H66.001 [facility] [address] [place] [id number] [place] [address] 15566 -3137 July, Acute suppurative otitis media of left ear without spontaneous rupture of tympanic membrane, recurrence not specified H66.002 [facility] [address] [place] [id number] [place] [address] 59687- 9193 July, [facility] [address] 11236- 8121 July, Anxiety, generalized F41.1 [facility] [address] 99458- 7955 Jun, [facility] [address] 35571- 9099 Jun, Primary insomnia F51.01 [facility] [address] 93929- 1370 Jun, Empty sella syndrome E23.6 ; Primary insomnia F51.01 and Hypokalemia E87.6 [facility] [address] 57989- 3148 Jun, [facility] [address] [place] [id number] [place] [address] 17697- 6438 Jun, [facility] [address] [place] [id number] [place] [address] 58430- 7299 Jun, Empty sella syndrome E23.6 [facility] [address] [place] [id number] [place] [address] 76340- 0308 Jun, Anxiety, generalized F41.1 [facility] [address] 33066- 9793 Jun, [facility] [address] [place] [id number] [place] [address] 28253- 3169 Jun, Empty sella syndrome E23.6 [facility] [address] [place] [address]- 2716 31 May, 2016 [facility] [address] [place] [id number] [place] [address] 82430- 8972 May, [facility] [address] [place] [id number] [place] [address] 09179- 7974 30 May, 2016 Empty sella syndrome E23.6 [facility] [address] 97542- 5638 May, [facility] [address] 24717- 2286 May, [facility] [address] 40649- 5713 May, Primary insomnia F51.01 [facility] [address] [place] [id number] [place] [address] 65336- 7796 May, [facility] [address] 67568- 7453 May, Nausea R11.0 ; Other headache syndrome G44.89 and Malignant hypertension I10 [facility] [address] [place] [id number] [place] [address] 60256- 4558 07 May, 2016 Anxiety, generalized F41.1 [facility] [address] [place] [id number] [place] [address] 15638- 9184 28 Apr, 2016 Major depressive disorder, recurrent episode, moderate F33.1 [facility] [address] [place] [id number] [place] [address] 93143- 4161 28 Apr, 2016 Moderate episode of recurrent major depressive disorder F33.1 [facility] [address] [place] [id number] [place] [address] 65304- 2113 27 Apr, 2016 Other chronic postprocedural pain G89.28 [facility] [address] [place] [id number] [place] [address] 64542- 9865 15 Apr, 2016 Major depressive disorder, recurrent episode, moderate F33.1 [facility] [address] [place] [address] [place] [address] 74891- 1198 07 Apr, 2016 Anxiety, generalized F41.1 [place] [address] [place] [id number] [place] [address] 47463- 4941 03 Apr, 2016 [place] [address] [place] [id number] [place] [address] 06761- 2024 Mar, Other chronic postprocedural pain G89.28 ; Status post craniotomy Z98.890 ; Encounter for drug screening Z02.83 and Hematuria R31.9 [place] [address] [id number] [place] [address] 25352- 1825 Mar, Major depressive disorder, recurrent episode, moderate F33.1 [place] [address] [place] [id number] [place] [address] 02380- 8449 Mar, [place] [address] 91560- 7489 Mar, Anxiety, generalized F41.1 [place] [address] [place] [id number] [place] [address] 19004- 1662 Mar, Anxiety, generalized F41.1 and Pernicious anemia D51.0 [place] [address] [place] [id number] [place] [address] 74109- 7618 Mar, 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 and Status post craniotomy Z98.890 [place] [address] [place] [id number] [place] [address] 49744- 6655 Mar, Primary insomnia F51.01 [place] [address] [place] [id number] [place] [address] 33713- 7747 Feb, [place] [address] [place] [id number] [place] [address] 69734- 3460 Feb, Encounter to establish care Z76.89 ; Status post craniotomy Z98.890 ; 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 ; Hypokalemia E87.6 ; Essential hypertension I10 ; Other hyperlipidemia E78.4 ; Pernicious anemia D51.0 ; Other depression F32.89 and Chronic nausea R11.0 IMMUNIZATIONS No Known Immunizations SOCIAL HISTORY Never Assessed REASON FOR VISIT Other PLAN OF CARE VITAL SIGNS MEDICATIONS Medication Instructions Dosage Frequency Start Date End Date Duration Status Chlorthalidone 25 MG Orally Once a day 1/2 tablet 24h Feb, 30 day(s) Active Amlodipine Besylate 5 MG Orally Once a day 1 tablet 24h Feb, 30 day(s) Active RESULTS No Results PROCEDURES No Known [...] 6yrs Hospitalization History surgery only Hospitalization History [facility]2017
--- OUTSIDE RECORDS SUMMARY | 2017-11-05 12:31 | XMS REPORT ---
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 Name Role Phone OSBALDO CORRAL Unavailable PROBLEMS Type Condition ICD9-CM Code [id number] Code Onset Dates Condition Status SNOMED Code Problem Primary insomnia F51.01 Active 6064940 Problem Major depressive disorder, recurrent episode, moderate F33.1 Active 311885248 Problem Anxiety, generalized F41.1 Active 58015857 Problem Vitamin B12 deficiency anemia due to intrinsic factor deficiency D51.0 Active 10170825 Problem Migraine without status migrainosus, not intractable, unspecified migraine type G43.909 Active 64805685 Problem Essential hypertension I10 Active 43059515 Problem Chronic pain due to trauma G89.21 Active 559557228 Problem Adjustment disorder with mixed anxiety and depressed mood F43.23 Active 96860490 Problem Seasonal allergic rhinitis, unspecified allergic rhinitis trigger J30.2 Active 297429227 Problem Empty sella syndrome E23.6 Active 193936178 Problem 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27 [facility] [address] [place] [id number] [place] [address]015[address] July, Essential hypertension I10 [place] [address] [address] July, Major depressive disorder, recurrent episode, moderate F33.1 [place] [address] [place] [id number] [place] [address] 40315- 8656 July, Primary insomnia F51.01 [place] [address] [address]- 6[address] Jun, Anxiety, generalized F41.1 and Osteoarthritis of spine with radiculopathy, lumbosacral region M47.27 [facility] [place] [address] [place] [id number] [place] [address]30 [address]324 Jun, Acute frontal sinusitis, recurrence not specified J01.10 ; Sinus pressure J34.89 ; Post-nasal drip R09.82 and Sore throat J02.9 [place] [address] [place] [id number] [place] [address] 45361- 7457 Jun, Primary insomnia F51.01 [place] [address] [place] [id number] [place] [address] 95146- 3005 May, Anxiety, generalized F41.1 and Osteoarthritis of spine with radiculopathy, lumbosacral region M47.27 [place] [address] [place] [id number] [place] [address] 23138- 1737 May, Essential hypertension I10 ; 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 ; Empty sella syndrome E23.6 ; Pernicious anemia D51.0 ; Major depressive disorder, recurrent episode, moderate F33.1 ; Primary insomnia F51.01 ; Other hyperlipidemia E78.4 and Anxiety, generalized F41.1 [place] [address] [place] [id number] [place] [address] 69005- 2412 May, Vitamin B12 deficiency anemia due to intrinsic factor deficiency D51.0 and Pernicious anemia D51.0 [facility] [address] [place] [id number] [place] [address] 38[address]3023 May, Migraine without status migrainosus, not intractable, unspecified migraine type G43.909 [facility] [address] [place] [id number] [place] [address] 14131- 3203 May, [facility] [address] [address]45- 3985 May, [place] [address] 25549- 8676 May, Osteoarthritis of spine with radiculopathy, lumbosacral region M47.27 and Primary insomnia F51.01 [place] [address] [address]- 1918 May, Osteoarthritis of spine with radiculopathy, lumbosacral region M47.27 and Anxiety, generalized F41.1 [place] [address] 96759- 4705 May, [place] [address] 76540- 2375 28 Apr, 2017 [place] [address] 43802- 1301 Apr, [place] [address] 74473- 0357 13 Apr, 2017 Anxiety, generalized F41.1 ; Major depressive disorder, recurrent episode, moderate F33.1 ; Moderate episode of recurrent major depressive disorder F33.1 and Adjustment disorder with mixed anxiety and depressed mood F43.23 [place] [address] 64568- 6879 13 Apr, 2017 Major depressive disorder, recurrent episode, moderate F33.1 ; Anxiety, generalized F41.1 ; Essential hypertension I10 ; Primary insomnia F51.01 and 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 [place] [address] 47982- 1964 09 Apr, 2017 Other chest pain R07.89 ; Sinus bradycardia R00.1 ; Essential hypertension I10 and Other hyperlipidemia E78.4 [place] [address] 94913- 8612 Apr, Primary insomnia F51.01 [place] [address] 76028- 2419 Apr, [place] [address] 76361- 1161 Apr, Anxiety, generalized F41.1 [place] [address] 23264- 6703 Apr, Osteoarthritis of spine with radiculopathy, lumbosacral region M47.27 [place] [address] 77700- 6691 Mar, Intractable migraine without aura and without status migrainosus G43.019 and Dyshidrotic hand dermatitis L30.1 [facility] [place] [address] 35584 -8797 Mar, Skin infection L08.9 [place] [address] 35784- 1486 Mar, [facility] [place] [address] 14191 -1083 Mar, Skin lesion L98.9 [place] [address] 58617- 7724 Mar, Primary insomnia F51.01 and Anxiety, generalized F41.1 [place] [address] 78173- 2944 Mar, Osteoarthritis of spine with radiculopathy, lumbosacral region M47.27 [place] [address] 62746- 2483 Feb, [place] [address] [place] [id number] [place] [address] 72622- 2888 Feb, [facility] [address] 92760- 9264 Feb, Hypokalemia E87.6 [facility] [address] [place] [id number] [place] [address] 70318- 2318 Feb, Intractable migraine without aura and without status migrainosus G43.019 and Other chest pain R07.89 [facility] [address] [place] [id number] [place] [address] 51127- 3945 Feb, [place] [address] 22633- 0400 Feb, Osteoarthritis of spine with radiculopathy, lumbosacral region M47.27 [place] [address] [place] [id number] [place] [address] 57721- 6691 Feb, Hypokalemia E87.6 [facility] [address] [place] [id number] [place] [address] 99284- 8140 Feb, [place] [address] 84489- 1331 Feb, Primary insomnia F51.01 and Anxiety, generalized F41.1 [facility] [address] [place] [id number] [place] [address] 79655 -5086 Feb, Acute suppurative otitis media of both ears without spontaneous rupture of tympanic membranes, recurrence not specified H66.003 [facility] [address] [place] [id number] [place] [address] 47718- 5556 Feb, [place] [address] 79789- 1607 Jan, Osteoarthritis of spine with radiculopathy, lumbosacral region M47.27 [facility] [address] [place] [id number] [place] [address] 77262- 8170 Jan, Primary insomnia F51.01 and Anxiety, generalized F41.1 [place] [address] [place] [id number] [place] [address] 57393- 3921 02 Jan, 2017 Chronic pain due to trauma G89.21 ; Left otitis media with effusion H65.92 and Otalgia of left ear H92.02 [facility] [address] 24[address] Jan, Bilateral otitis media with effusion H65.93 [place] [address] 77070- 3363 Dec, [place] [address] [address] 9539 Dec, Primary insomnia F51.01 and Anxiety, generalized F41.1 [place] [address] 43611- 0841 Nov, [place] [address] 66613- 3105 Nov, [place] [address] 82302- 4986 Nov, Anxiety, generalized F41.1 [place] [address] 91482- 4808 Nov, Pernicious anemia D51.0 [place] [address] [address]31- 2003 Nov, Primary insomnia F51.01 [place] [address] 92611- 3058 Nov, Encounter for well woman exam with routine gynecological exam Z01.419 ; Screening breast examination Z12.31 and Otalgia of left ear H92.02 [place] [address] [place] [id number] [place] [address] 80938- 9701 Oct, [facility] [address] 56736 -6182 Oct, Insect bite (nonvenomous) of right upper arm, initial encounter S40.861A [facility] [address] 06555- 9425 Oct, Pernicious anemia D51.0 [place] [address] 71288- 2181 Oct, Anxiety, generalized F41.1 and Pernicious anemia D51.0 [place] [address] 87349- 0883 Oct, Encounter to establish care with new doctor Z76.89 ; Moderate episode of recurrent major depressive disorder F33.1 ; Empty sella syndrome E23.6 ; Seasonal allergic rhinitis, unspecified allergic rhinitis trigger J30.2 ; Essential hypertension I10 and Osteoarthritis of spine with radiculopathy, lumbosacral region M47.27 [place] [address] 18161- 7988 Aug, [facility] [address] 98922- 5568 Aug, [facility] [address] 80398- 1541 13 Aug, 2016 Anxiety, generalized F41.1 [place] [address] 89470- 9257 Aug, [facility] [address] 28255- 5697 07 Aug, 2016 Primary insomnia F51.01 ; Essential hypertension I10 ; Empty sella syndrome E23.6 and Chronic pain due to trauma G89.21 [place] [address] 67067- 6299 July, Primary insomnia F51.01 [facility] [address] [place] [id number] [place] [address] 44402 -9901 July, Seasonal allergic rhinitis, unspecified allergic rhinitis trigger J30.2 and Acute suppurative otitis media of right ear without spontaneous rupture of tympanic membrane, recurrence not specified H66.001 [facility] [address] [place] [id number] [place] [address] 94864 -7658 July, Acute suppurative otitis media of left ear without spontaneous rupture of tympanic membrane, recurrence not specified H66.002 [facility] [address] [place] [id number] [place] [address] 89882- 0174 July, [facility] [address] 46343- 8966 July, Anxiety, generalized F41.1 [facility] [address] 50701- 0289 Jun, [facility] [address] 30466- 1487 Jun, Primary insomnia F51.01 [facility] [address] 98700- 4912 Jun, Empty sella syndrome E23.6 ; Primary insomnia F51.01 and Hypokalemia E87.6 [facility] [address] 75250- 8366 Jun, [facility] [address] [place] [id number] [place] [address] 52008- 8106 Jun, [facility] [address] [place] [id number] [place] [address] 77911- 4051 Jun, Empty sella syndrome E23.6 [facility] [address] [place] [id number] [place] [address] 26455- 9862 Jun, Anxiety, generalized F41.1 [facility] [address] 29479- 2940 Jun, [facility] [address] [place] [id number] [place] [address] 96581- 8810 Jun, Empty sella syndrome E23.6 [facility] [address] [place] [address]- 5519 31 May, 2016 [facility] [address] [place] [id number] [place] [address] 49144- 0339 May, [facility] [address] [place] [id number] [place] [address] 11304- 6475 30 May, 2016 Empty sella syndrome E23.6 [facility] [address] 35882- 8978 May, [facility] [address] 80057- 1044 May, [facility] [address] 71864- 1448 May, Primary insomnia F51.01 [facility] [address] [place] [id number] [place] [address] 86583- 7360 May, [facility] [address] 03830- 6724 May, Nausea R11.0 ; Other headache syndrome G44.89 and Malignant hypertension I10 [facility] [address] [place] [id number] [place] [address] 16510- 1235 07 May, 2016 Anxiety, generalized F41.1 [facility] [address] [place] [id number] [place] [address] 68512- 4400 28 Apr, 2016 Major depressive disorder, recurrent episode, moderate F33.1 [facility] [address] [place] [id number] [place] [address] 99682- 2802 28 Apr, 2016 Moderate episode of recurrent major depressive disorder F33.1 [facility] [address] [place] [id number] [place] [address] 66780- 3880 27 Apr, 2016 Other chronic postprocedural pain G89.28 [facility] [address] [place] [id number] [place] [address] 33784- 2074 15 Apr, 2016 Major depressive disorder, recurrent episode, moderate F33.1 [facility] [address] [place] [id number] [place] [address] 82824- 1127 07 Apr, 2016 Anxiety, generalized F41.1 [place] [address] [place] [id number] [place] [address] 38073- 9395 03 Apr, 2016 [place] [address] [place] [id number] [place] [address] 58621- 8591 Mar, Other chronic postprocedural pain G89.28 ; Status post craniotomy Z98.890 ; Encounter for drug screening Z02.83 and Hematuria R31.9 [place] [address] [place] [id number] [place] [address] 26777- 2282 Mar, Major depressive disorder, recurrent episode, moderate F33.1 [place] [address] [place] [id number] [place] [address] 67470- 5222 Mar, [place] [address] 04830- 6131 Mar, Anxiety, generalized F41.1 [place] [address] [place] [id number] [place] [address] 65167- 2643 Mar, Anxiety, generalized F41.1 and Pernicious anemia D51.0 [place] [address] [place] [id number] [place] [address] 11681- 0397 Mar, 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 and Status post craniotomy Z98.890 [place] [address] [place] [id number] [place] [address] 38311- 9222 Mar, Primary insomnia F51.01 [place] [address] [place] [id number] [place] [address] 08273- 7743 Feb, [place] [address] [place] [id number] [place] [address] 34618- 0717 Feb, Encounter to establish care Z76.89 ; Status post craniotomy Z98.890 ; 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 ; Hypokalemia E87.6 ; Essential hypertension I10 ; Other hyperlipidemia E78.4 ; Pernicious anemia D51.0 ; Other depression F32.89 and Chronic nausea R11.0 IMMUNIZATIONS No Known Immunizations SOCIAL HISTORY Never Assessed REASON FOR VISIT Lab PLAN OF CARE VITAL SIGNS MEDICATIONS Unknown Medications RESULTS No Results PROCEDURES Procedure Date Ordered Result Body Site ROUTINE VENIPUNCTURE 2017-03-26 N/A LAB NOT BILLED BY [employer] Mar 26, 2017 INSTRUCTIONS MEDICATIONS ADMINISTERED No Known Medications [...] 6yrs Hospitalization History surgery only Hospitalization History [facility] 02/2017
--- OUTSIDE RECORDS SUMMARY | 2017-11-05 12:31 | XMS REPORT ---
Author Author ANYA BANKS [facility] Address [address] [place] [address] Care Team Providers Care Electronic Warfare Officer Name Role Phone JOCELYN ANYA Unavailable PROBLEMS Type Condition ICD9-CM Code OVX62-FP Code Onset Dates Condition Status SNOMED Code Problem Primary insomnia F51.01 Active 7214103 Problem Major depressive disorder, recurrent episode, moderate F33.1 Active 161001878 Problem Anxiety, generalized F41.1 Active 24276425 Problem Vitamin B12 deficiency anemia due to intrinsic factor deficiency D51.0 Active 19236467 Problem Migraine without status migrainosus, not intractable, unspecified migraine type G43.909 Active 10549282 Problem Essential hypertension I10 Active 79592138 Problem Chronic pain due to trauma G89.21 Active 325725464 Problem Adjustment disorder with mixed anxiety and depressed mood F43.23 Active 86663978 Problem Seasonal allergic rhinitis, unspecified allergic rhinitis trigger J30.2 Active 314397398 Problem Empty sella syndrome E23.6 Active 414153128 Problem 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 Active 05134792 Problem Pernicious anemia D51.0 Active 98832760 Problem Hypokalemia E87.6 Active 48473858 Problem Other hyperlipidemia E78.4 Active 81467011 ALLERGIES Substance Reaction Event Type Date Status Iodine anaphylaxis Drug Allergy Feb, Active Depakote CP Drug Allergy Feb, Active Bactrim DS swelling of joint Drug Allergy Feb, Active ENCOUNTERS Encounter Location Date Diagnosis [facility] [address] [facility] [id number] [address] Aug, [facility] [address] [facility] [id number] [address] July, Anxiety, generalized F41.1 and Osteoarthritis of spine with radiculopathy, lumbosacral region M47.27 [facility] [id number] [place] [address] 34071- 2029 July, Essential hypertension I10 [place] [address] [place] [id number] [place] [address] 55366- 9193 July, Major depressive disorder, recurrent episode, moderate F33.1 [place] [address] [place] [id number] [place] [address] 98452- 8029 July, Primary insomnia F51.01 [place] [address] [place] [id number] [place] [address] 26589- 9675 Jun, Anxiety, generalized F41.1 and Osteoarthritis of spine with radiculopathy, lumbosacral region M47.27 [facility] [place] [id number] [place] [address]98 [address] Jun, Acute frontal sinusitis, recurrence not specified J01.10 ; Sinus pressure J34.89 ; Post-nasal drip R09.82 and Sore throat J02.9 [place] [address] [place] [place] [id number] [place] [address] 21962- 1544 Jun, Primary insomnia F51.01 [place] [address] [place] [id number] [place] [address] 48016- 0827 May, Anxiety, generalized F41.1 and Osteoarthritis of spine with radiculopathy, lumbosacral region M47.27 [place] [id number] [place] [address] 33263- 7505 May, Essential hypertension I10 ; 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 ; Empty sella syndrome E23.6 ; Pernicious anemia D51.0 ; Major depressive disorder, recurrent episode, moderate F33.1 ; Primary insomnia F51.01 ; Other hyperlipidemia E78.4 and Anxiety, generalized F41.1 [place] [address] [place] [address] 59316- 0110 May, Vitamin B12 deficiency anemia due to intrinsic factor deficiency D51.0 and Pernicious anemia D51.0 [facility] [address] [place] [address] 44271 [address]3356 May, Migraine without status migrainosus, not intractable, unspecified migraine type G43.909 [facility] [address] [place] [id number] [place] [address] 26033- 2812 May, [facility] [address] [place] [id number] [place] [address] 49023- 0151 May, [place] [address] [place] [id number] [place] [address] 79914- 1433 May, Osteoarthritis of spine with radiculopathy, lumbosacral region M47.27 and Primary insomnia F51.01 [place] [address] 92603- 0763 May, Osteoarthritis of spine with radiculopathy, lumbosacral region M47.27 and Anxiety, generalized F41.1 [place] [address] [place] [id number] [place] [address] 86459- 2680 May, [place] [address] [place] [id number] [place] [address] 73247- 1335 Apr, [place] [address] [place] [id number] [place] [address] 46726- 0584 Apr, [place] [address] [place] [id number] [place] [address] 07070- 4448 13 Apr, 2017 Anxiety, generalized F41.1 ; Major depressive disorder, recurrent episode, moderate F33.1 ; Moderate episode of recurrent major depressive disorder F33.1 and Adjustment disorder with mixed anxiety and depressed mood F43.23 [place] [address] [place] [id number] [place] [address] 95476- 4500 13 Apr, 2017 Major depressive disorder, recurrent episode, moderate F33.1 ; Anxiety, generalized F41.1 ; Essential hypertension I10 ; Primary insomnia F51.01 and 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 [place] [address] 91420- 6925 09 Apr, 2017 Other chest pain R07.89 ; Sinus bradycardia R00.1 ; Essential hypertension I10 and Other hyperlipidemia E78.4 [place] [address] 76529- 7019 Apr, Primary insomnia F51.01 [place] [address] 72041- 4948 Apr, [place] [address] 43273- 5007 Apr, Anxiety, generalized F41.[address] 06711- 7368 Apr, Osteoarthritis of spine with radiculopathy, lumbosacral region M47.27 [place] [address] 89305- 9266 Mar, Intractable migraine without aura and without status migrainosus G43.019 and Dyshidrotic hand dermatitis L30.1 [facility] [address] [address]18[address] Mar, Skin infection L08.9 [place] [address] 23686- 7198 Mar, [facility] [place] [address] 16765 -6009 Mar, Skin lesion L98.9 [place] [address] 98301- 0561 Mar, Primary insomnia F51.01 and Anxiety, generalized F41.[address] 63161- 7486 Mar, Osteoarthritis of spine with radiculopathy, lumbosacral region M47.27 [place] [address] 11487- 1028 Feb, [place] [address] [place] [id number] [place] [address] 08207- 2848 Feb, [facility] [address] 89833- 2943 Feb, Hypokalemia E87.6 [facility] [address] [place] [id number] [place] [address] 25579- 7058 Feb, Intractable migraine without aura and without status migrainosus G43.019 and Other chest pain R07.89 [facility] [address] [place] [id number] [place] [address] 83488- 2999 Feb, [place] [address] 36191- 2067 Feb, Osteoarthritis of spine with radiculopathy, lumbosacral region M47.27 [place] [address] [place] [id number] [place] [address] 33178- 6765 Feb, Hypokalemia E87.6 [facility] [address] [place] [id number] [place] [address] 05543- 6345 Feb, [place] [address] 19725- 0683 Feb, Primary insomnia F51.01 and Anxiety, generalized F41.1 [facility] [address] [place] [id number] [place] [address] 83678 -4140 Feb, Acute suppurative otitis media of both ears without spontaneous rupture of tympanic membranes, recurrence not specified H66.003 [facility] [address] [place] [id number] [place] [address] 71360- 3607 Feb, [facility] [address] 37821- 7821 Jan, Osteoarthritis of spine with radiculopathy, lumbosacral region M47.27 [facility] [address] [place] [id number] [place] [address] 97370- 7675 Jan, Primary insomnia F51.01 and Anxiety, generalized F41.1 [place] [address] 89672- 8254 02 Jan, 2017 Chronic pain due to trauma G89.21 ; Left otitis media with effusion H65.92 and Otalgia of left ear H92.02 [facility] [address] 87567 [address]2813 Jan, Bilateral otitis media with effusion H65.93 [place] [address] 88543- 8687 Dec, [place] [address] 45597- 1186 Dec, Primary insomnia F51.01 and Anxiety, generalized F41.1 [place] [address] 02317- 5224 Nov, [place] [address] 09398- 6774 Nov, [place] [address] 19499- 3524 Nov, Anxiety, generalized F41.1 [place] [address] 09877- 4878 Nov, Pernicious anemia D51.0 [place] [address] 15348- 9993 Nov, Primary insomnia F51.01 [place] [address] 93270- 4255 Nov, Encounter for well woman exam with routine gynecological exam Z01.419 ; Screening breast examination Z12.31 and Otalgia of left ear H92.02 [place] [address] [place] [id number] [place] [address] 88002- 1793 Oct, [facility] [address] 66183 -4253 14 Oct, 2016 Insect bite (nonvenomous) of right upper arm, initial encounter S40.861A [place] [address] 87602- 8602 11 Oct, 2016 Pernicious anemia D51.0 [place] [address] 06944- 6571 07 Oct, 2016 Anxiety, generalized F41.1 and Pernicious anemia D51.0 [place] [address] 23758- 5457 Oct, Encounter to establish care with new doctor Z76.89 ; Moderate episode of recurrent major depressive disorder F33.1 ; Empty sella syndrome E23.6 ; Seasonal allergic rhinitis, unspecified allergic rhinitis trigger J30.2 ; Essential hypertension I10 and Osteoarthritis of spine with radiculopathy, lumbosacral region M47.27 [place] [address] 13622- 2751 Aug, [facility] [address] 24697- 7880 27 Aug, 2016 [place] [address] 51336- 1190 13 Aug, 2016 Anxiety, generalized F41.1 [place] [address] 81023- 4649 08 Aug, 2016 [facility] [address] 17472- 1105 07 Aug, 2016 Primary insomnia F51.01 ; Essential hypertension I10 ; Empty sella syndrome E23.6 and Chronic pain due to trauma G89.21 [place] [address] 18123- 1272 July, Primary insomnia F51.01 [facility] [address] 18336 -9013 July, Seasonal allergic rhinitis, unspecified allergic rhinitis trigger J30.2 and Acute suppurative otitis media of right ear without spontaneous rupture of tympanic membrane, recurrence not specified H66.001 [facility] [address] [place] [id number] [place] [address] 95775 -2929 July, Acute suppurative otitis media of left ear without spontaneous rupture of tympanic membrane, recurrence not specified H66.002 [facility] [address] [place] [id number] [place] [address] 90537- 1035 July, [facility] [address] 70832- 0633 July, Anxiety, generalized F41.1 [facility] [address] 52260- 9488 Jun, [facility] [address] 31299- 6082 Jun, Primary insomnia F51.01 [facility] [address] 73760- 5875 Jun, Empty sella syndrome E23.6 ; Primary insomnia F51.01 and Hypokalemia E87.6 [facility] [address] 78389- 9303 Jun, [facility] [address] [place] [id number] [place] [address] 23808- 0177 Jun, [facility] [address] [place] [id number] [place] [address] 51637- 4420 Jun, Empty sella syndrome E23.6 [facility] [address] [place] [id number] [place] [address] 09372- 9954 Jun, Anxiety, generalized F41.1 [facility] [address] [place] [id number] [place] [address] 03111- 1856 Jun, [facility] [address] [place] [id number] [place] [address] 67394- 0500 Jun, Empty sella syndrome E23.6 [facility] [address] [place] [address] 8117 31 May, 2016 [facility] [address] [place] [id number] [place] [address] 42756- 3311 31 May, 2016 [facility] [address] [place] [id number] [place] [address] 08920- 4445 30 May, 2016 Empty sella syndrome E23.6 [facility] [address] [place] [id number] [place] [address] 29145- 2392 May, [facility] [address] [place] [id number] [place] [address] 05717- 7211 May, [facility] [address] [place] [id number] [place] [address] 82118- 6363 May, Primary insomnia F51.01 [facility] [address] [place] [id number] [place] [address] 58089- 9954 May, [facility] [address] [place] [id number] [place] [address] 92370- 3696 May, Nausea R11.0 ; Other headache syndrome G44.89 and Malignant hypertension I10 [facility] [address] [place] [id number] [place] [address] 79749- 3954 07 May, 2016 Anxiety, generalized F41.1 [facility] [address] [place] [id number] [place] [address] 13556- 4020 28 Apr, 2016 Major depressive disorder, recurrent episode, moderate F33.1 [facility] [address] [place] [id number] [place] [address] 32004- 0889 28 Apr, 2016 Moderate episode of recurrent major depressive disorder F33.1 [facility] [address] [place] [id number] [place] [address] 06493- 1678 27 Apr, 2016 Other chronic postprocedural pain G89.28 [facility] [address] [place] [id number] [place] [address] 70001- 2302 15 Apr, 2016 Major depressive disorder, recurrent episode, moderate F33.1 [facility] [address] [place] [id number] [place] [address] 62971- 6082 07 Apr, 2016 Anxiety, generalized F41.1 [place] [address] 77210- 1162 03 Apr, 2016 [place] [address] [place] [id number] [place] [address] 09882- 2040 Mar, Other chronic postprocedural pain G89.28 ; Status post craniotomy Z98.890 ; Encounter for drug screening Z02.83 and Hematuria R31.9 [place] [address] [place] [id number] [place] [address] 22951- 1349 Mar, Major depressive disorder, recurrent episode, moderate F33.1 [place] [address] [place] [id number] [place] [address] 52791- 2613 Mar, [place] [address] [place] [id number] [place] [address] 31013- 4584 Mar, Anxiety, generalized F41.1 [place] [address] [place] [id number] [place] [address] 40135- 8819 Mar, Anxiety, generalized F41.1 and Pernicious anemia D51.0 [place] [address] [place] [id number] [place] [address] 14940- 2974 Mar, 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 and Status post craniotomy Z98.890 [place] [address] [place] [id number] [place] [address] 94334- 4588 Mar, Primary insomnia F51.01 [place] [address] [place] [id number] [place] [address] 91050- 2441 Feb, [place] [address] [place] [id number] [place] [address] 67699- 6157 Feb, Encounter to establish care Z76.89 ; Status post craniotomy Z98.890 ; 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 states she has had many problems with fluid behind her ears she just wants to make sure they are not infected Veronika KINSEY c/o loss of balance PLAN OF CARE Activity Details Follow Up prn Reason: VITAL SIGNS Height 67 in 2017-02-27 Weight 134.8 lbs 2017-02-27 Temperature 98.3 degrees Fahrenheit 2017-02-27 Heart Rate 68 bpm 2017-02-27 Respiratory Rate 20 2017-02-27 BMI 21.11 kg/m2 2017-02-27 Blood pressure systolic 160 mmHg 2017-02-27 Blood pressure diastolic 96 mmHg 2017-02-27 MEDICATIONS Medication Instructions Dosage Frequency Start Date End Date Duration Status Tizanidine HCl 4 MG Orally Three times a day 1 tablet as needed 8h 30 Active Ipratropium [place] 0.06 % Nasally Three times a day 2 sprays in each nostril as needed 8h Active Xanax 0.5 MG Orally Three times a day 1 tablet 8h 28 days Active Pravastatin Sodium 80 MG Orally Once a day 1 tablet 24h 90 Active Folic Acid 400 MCG Orally Once a day 1 tablet 24h Active Potassium Chloride ER 10 MEQ Orally Once a day 1 tablet with food 24h 30 Active Ambien 10 MG Orally Once a day 1 tablet at bedtime as needed 24h Mar, 28 days Active Vitamin D 400 UNIT Orally Once a day 2 capsules 24h Active Diazepam 5 MG Orally every 12 hours 1 tablet as needed 12h Not- Taking Metoprolol Tartrate 25 MG Orally Once a day 1 tablet with food 24h Active Amoxicillin 500 MG Orally every 8 hrs 1 capsule 8h Feb, 11 Feb, 2017 10 day(s) Active Oxycodone-Acetaminophen 5-325 MG Orally 3 times a day 1 tablet as needed 8h Jan, 28 days Active Ciprodex 0.3-0.1 % Otic Twice a day 4 drops into affected ear 12h Nov, 07 days Not-Taking Nortriptyline HCl 10 MG Orally Once a day 1 capsule 24h Not-Taking Duloxetine HCl 30 MG Orally Once a day in the AM 1 capsule Active Zyrtec Allergy 10 MG Orally Once a day 1 tablet 24h July, 30 day (s) Not-Taking Cyanocobalamin 1000 MCG/ML Intramuscular once monthly Inject 1ML 28 Active BD Syringe/Needle 23GX1 For use with injectable B12 Active Triamterene-HCTZ 37.5-25 MG Orally Once a day 1 tablet in the morning 24h 30 Not-Taking Ibuprofen 200 mg Orally Once a day 1 tablet with food or milk as needed 24h Active Lisinopril 40 MG Orally Once a day 1 tablet 24h 90 days Active Aspirin Adult Low Strength 81 MG Orally Once a day 1 tablet 24h Active Fluticasone Propionate 50 MCG/ACT Nasally Once a day 1 spray in each nostril 24h Not-Taking RESULTS No Results PROCEDURES No Known procedures [...]
--- OUTSIDE RECORDS SUMMARY | 2017-11-05 12:32 | XMS REPORT ---
Author Author OSBALDO CORRAL Organization [facility] Address [address] [place] [address] Care Team Providers Care Au Pair Name Role Phone OSBALDO CORRAL Unavailable PROBLEMS Type Condition ICD9-CM Code KOS68-YO Code Onset Dates Condition Status SNOMED Code Problem Primary insomnia F51.01 Active 4119576 Problem Major depressive disorder, recurrent episode, moderate F33.1 Active 400489249 Problem Anxiety, generalized F41.1 Active 10274471 Problem Vitamin B12 deficiency anemia due to intrinsic factor deficiency D51.0 Active 00223222 Problem Migraine without status migrainosus, not intractable, unspecified migraine type G43.909 Active 34416019 Problem Essential hypertension I10 Active 56826874 Problem Chronic pain due to trauma G89.21 Active 154920674 Problem Adjustment disorder with mixed anxiety and depressed mood F43.23 Active 93441180 Problem Seasonal allergic rhinitis, unspecified allergic rhinitis trigger J30.2 Active 307155312 Problem Empty sella syndrome E23.6 Active 174915741 Problem 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 Active 28358590 Problem Pernicious anemia D51.0 Active 07230086 Problem Hypokalemia E87.6 Active 86127127 Problem Other hyperlipidemia E78.4 Active 11537869 ALLERGIES No Information ENCOUNTERS Encounter Location Date Diagnosis [facility] [id number] [address] Aug, [facility] [address] [address] Aug, [facility] [id number] [place] [address] 3[address] Aug, Primary insomnia F51.01 [facility] [id number] [address] July, Anxiety, generalized F41.1 and Osteoarthritis of spine with radiculopathy, lumbosacral region M47.27 [facility] [id number] [place] [address] 20339- 2015 July, Essential hypertension I10 [place] [id number] [place] [address]29- 8883 July, Major depressive disorder, recurrent episode, moderate F33.1 [place] [address] 26967- 7[address] July, Primary insomnia F51.01 [place] [address] [address] Jun, Anxiety, generalized F41.1 and Osteoarthritis of spine with radiculopathy, lumbosacral region M47.27 [facility] [id number] [place] [address] Jun, Acute frontal sinusitis, recurrence not specified J01.10 ; Sinus pressure J34.89 ; Post-nasal drip R09.82 and Sore throat J02.9 [place] [address] 95683- 1841 Jun, Primary insomnia F51.01 [place] [id number] [place] [address] 20670- 6305 May, Anxiety, generalized F41.1 and Osteoarthritis of spine with radiculopathy, lumbosacral region M47.27 [facility] [id number] [place] [address] 89809- 6987 May, Essential hypertension I10 ; 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 ; Empty sella syndrome E23.6 ; Pernicious anemia D51.0 ; Major depressive disorder, recurrent episode, moderate F33.1 ; Primary insomnia F51.01 ; Other hyperlipidemia E78.4 and Anxiety, generalized F41.1 [place] [id number] [place] [address] 38967- 7583 May, Vitamin B12 deficiency anemia due to intrinsic factor deficiency D51.0 and Pernicious anemia D51.0 [facility] [id number] [place] [address] May, Migraine without status migrainosus, not intractable, unspecified migraine type G43.909 [facility] [id number] [place] [address] 34003- 9527 May, [facility] [address] [address]63- 116[address] May, [place] [address] [address]- 2018 09 May, 2017 Osteoarthritis of spine with radiculopathy, lumbosacral region M47.27 and Primary insomnia F51.01 [facility] [address] 9[address]- 5106 02 May, 2017 Osteoarthritis of spine with radiculopathy, lumbosacral region M47.27 and Anxiety, generalized F41.1 [place] [address] 09945- 9191 02 May, 2017 [place] [address] 69948- 2845 28 Apr, 2017 [place] [address] 40784- 3099 19 Apr, 2017 [place] [address] 48549- 8578 13 Apr, 2017 Anxiety, generalized F41.1 ; Major depressive disorder, recurrent episode, moderate F33.1 ; Moderate episode of recurrent major depressive disorder F33.1 and Adjustment disorder with mixed anxiety and depressed mood F43.23 [place] [id number] [place] [address] 04832- 5337 13 Apr, 2017 Major depressive disorder, recurrent episode, moderate F33.1 ; Anxiety, generalized F41.1 ; Essential hypertension I10 ; Primary insomnia F51.01 and 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 [place] [id number] [place] [address] 52076- 7154 09 Apr, 2017 Other chest pain R07.89 ; Sinus bradycardia R00.1 ; Essential hypertension I10 and Other hyperlipidemia E78.4 [place] [address] 03306- 2868 08 Apr, 2017 Primary insomnia F51.01 [place] [address] 53561- 7418 06 Apr, 2017 [place] [address] 03988- 6998 Apr, Anxiety, generalized F41.1 [place] [address] 00714- 1010 Apr, Osteoarthritis of spine with radiculopathy, lumbosacral region M47.27 [place] [address] 52478- 5406 Mar, Intractable migraine without aura and without status migrainosus G43.019 and Dyshidrotic hand dermatitis L30.1 [facility] [place] [address] 84[address] -6763 Mar, Skin infection L08.9 [place] [address] 40618- 4547 Mar, [facility] [address] 21356 [address]25 Mar, Skin lesion L98.9 [place] [address] 54529- 2859 Mar, Primary insomnia F51.01 and Anxiety, generalized F41.1 [place] [address] 79244- 3430 Mar, Osteoarthritis of spine with radiculopathy, lumbosacral region M47.27 [place] [id number] [place] [address] 39363- 4227 Feb, [facility] [address] 97[address]- [address] Feb, [facility] [address] 82308- 1636 Feb, Hypokalemia E87.6 [facility] [address] 18363- 7768 Feb, Intractable migraine without aura and without status migrainosus G43.019 and Other chest pain R07.89 [place] [address] 74018- 2918 Feb, [place] [address] 07063- 3053 Feb, Osteoarthritis of spine with radiculopathy, lumbosacral region M47.27 [place] [id number] [place] [address] 08442- 3492 Feb, Hypokalemia E87.6 [place] [address] 09112- 6349 Feb, [place] [id number] [place] [address] 62389- 0502 Feb, Primary insomnia F51.01 and Anxiety, generalized F41.1 [facility] [id number] [place] [address] 76914 -1632 Feb, Acute suppurative otitis media of both ears without spontaneous rupture of tympanic membranes, recurrence not specified H66.003 [facility] [id number] [place] [address] 62578- 1207 Feb, [facility] [id number] [place] [address] 59756- 8580 Jan, Osteoarthritis of spine with radiculopathy, lumbosacral region M47.27 [facility] [id number] [place] [address] 86004- 9470 07 Jan, 2017 Primary insomnia F51.01 and Anxiety, generalized F41.1 [place] [address] 56219- 6301 02 Jan, 2017 Chronic pain due to trauma G89.21 ; Left otitis media with effusion H65.92 and Otalgia of left ear H92.02 [facility] [address] 33893 [address]2299 Jan, Bilateral otitis media with effusion H65.93 [place] [address] 44896- 3732 Dec, [place] [address] 47208- 8545 Dec, Primary insomnia F51.01 and Anxiety, generalized F41.1 [place] [address] 22681- 3871 Nov, [place] [address] 79097- 3813 Nov, [place] [address] 59671- 8645 Nov, Anxiety, generalized F41.1 [place] [address] 36094- 6786 Nov, Pernicious anemia D51.0 [place] [address] 67439- 5210 Nov, Primary insomnia F51.01 [place] [address] 04766- 9130 Nov, Encounter for well woman exam with routine gynecological exam Z01.419 ; Screening breast examination Z12.31 and Otalgia of left ear H92.02 [place] [id number] [place] [address] 86090- 1535 Oct, [facility] [id number] [place] [address] 27068 -6886 14 Oct, 2016 Insect bite (nonvenomous) of right upper arm, initial encounter S40.861A [place] [id number] [place] [address] 98792- 9543 11 Oct, 2016 Pernicious anemia D51.0 [place] [address] 80745- 0753 07 Oct, 2016 Anxiety, generalized F41.1 and Pernicious anemia D51.0 [place] [address] 04009- 2414 Oct, Encounter to establish care with new doctor Z76.89 ; Moderate episode of recurrent major depressive disorder F33.1 ; Empty sella syndrome E23.6 ; Seasonal allergic rhinitis, unspecified allergic rhinitis trigger J30.2 ; Essential hypertension I10 and Osteoarthritis of spine with radiculopathy, lumbosacral region M47.27 [place] [id number] [place] [address] 98065- 1691 Aug, [place] [address] 73637- 4566 Aug, [place] [id number] [place] [address] 31889- 5126 13 Aug, 2016 Anxiety, generalized F41.1 [place] [address] 87586- 2613 08 Aug, 2016 [place] [id number] [place] [address] 60123- 1830 07 Aug, 2016 Primary insomnia F51.01 ; Essential hypertension I10 ; Empty sella syndrome E23.6 and Chronic pain due to trauma G89.21 [place] [id number] [place] [address] 25931- 8257 July, Primary insomnia F51.01 [facility] [address] 17210 -2484 July, Seasonal allergic rhinitis, unspecified allergic rhinitis trigger J30.2 and Acute suppurative otitis media of right ear without spontaneous rupture of tympanic membrane, recurrence not specified H66.001 [facility] [id number] [place] [address] 17503 -4233 July, Acute suppurative otitis media of left ear without spontaneous rupture of tympanic membrane, recurrence not specified H66.002 [facility] [address] 69075- 7064 July, [facility] [address] 08365- 3649 July, Anxiety, generalized F41.1 [facility] [id number] [place] [address] 38459- 0265 Jun, [facility] [address] 47671- 8889 Jun, Primary insomnia F51.01 [facility] [address] 07131- 1034 Jun, Empty sella syndrome E23.6 ; Primary insomnia F51.01 and Hypokalemia E87.6 [facility] [id number] [place] [address] 54846- 6254 Jun, [facility] [id number] [place] [address] 09190- 4283 Jun, [facility] [id number] [place] [address] 23290- 7883 Jun, Empty sella syndrome E23.6 [place] [address] 05130- 7973 Jun, Anxiety, generalized F41.1 [facility] [id number] [place] [address] 98942- 0576 Jun, [facility] [address] 93824- 8040 Jun, Empty sella syndrome E23.6 [facility] [id number] [place] [address] 32674- 2416 May, [facility] [id number] [place] [address] 87305- 0633 May, [facility] [id number] [place] [address] 63224- 9261 May, Empty sella syndrome E23.6 [facility] [id number] [place] [address] 26696- 5371 May, [facility] [address] 79767- 2789 May, [facility] [id number] [place] [address] 53480- 7859 May, Primary insomnia F51.01 [facility] [address] 31455- 8113 May, [facility] [id number] [place] [address] 33723- 2496 May, Nausea R11.0 ; Other headache syndrome G44.89 and Malignant hypertension I10 [place] [id number] [place] [address] 47339- 7752 07 May, 2016 Anxiety, generalized F41.1 [facility] [id number] [place] [address] 54577- 0462 28 Apr, 2016 Major depressive disorder, recurrent episode, moderate F33.1 [facility] [id number] [place] [address] 70924- 1726 28 Apr, 2016 Moderate episode of recurrent major depressive disorder F33.1 [facility] [id number] [place] [address] 71195- 1065 27 Apr, 2016 Other chronic postprocedural pain G89.28 [facility] [address] 82289- 8926 15 Apr, 2016 Major depressive disorder, recurrent episode, moderate F33.1 [facility] [id number] [place] [address] 34119- 8795 07 Apr, 2016 Anxiety, generalized F41.1 [facility] [id number] [place] [address] 78666- 5489 03 Apr, 2016 [place] [address] 60455- 5713 Mar, Other chronic postprocedural pain G89.28 ; Status post craniotomy Z98.890 ; Encounter for drug screening Z02.83 and Hematuria R31.9 [place] [address] 97096- 4242 Mar, Major depressive disorder, recurrent episode, moderate F33.1 [place] [address] 03333- 8903 Mar, [place] [id number] [place] [address] 11072- 1940 Mar, Anxiety, generalized F41.1 [place] [address] 59492- 9830 Mar, Anxiety, generalized F41.1 and Pernicious anemia D51.0 [place] [id number] [place] [address] 03877- 3423 Mar, 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 and Status post craniotomy Z98.890 [place] [id number] [place] [address] 31594- 2792 Mar, Primary insomnia F51.01 [place] [address] 02033- 5728 Feb, [place] [id number] [place] [address] 83037- 7471 Feb, Encounter to establish care Z76.89 ; Status post craniotomy Z98.890 ; 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 02/2017
[2017-11-05 13:12] LABS: BASOPHILS % (AUTO) 1 % (0-10); EOSINOPHILS # (AUTO) 0.2 10^3/uL (0.0-0.3); EOSINOPHILS % (AUTO) 3 % (0-10); HEMATOCRIT 37 % (35-52); HEMOGLOBIN 13.1 G/DL (11.5-16.0); LYMPHOCYTES # (AUTO) 2.1 X 10^3 (1.0-4.0); LYMPHOCYTES % (AUTO) 30 % (12-44); MEAN CORPUSCULAR HEMOGLOBIN 32 PG (25-34); MEAN CORPUSCULAR HGB CONC 35 G/DL (32-36); MEAN CORPUSCULAR VOLUME 92 FL (80-99); MONOCYTES # (AUTO) 0.4 X 10^3 (0.0-1.0); MONOCYTES % (AUTO) 6 % (0-12); NEUTROPHILS # (AUTO) 4.3 X 10^3 (1.8-7.8); NEUTROPHILS % (AUTO) 62 % (42-75); PLATELET COUNT 265 10^3/uL (130-400); RED BLOOD COUNT 4.04 10^6/uL (4.35-5.85); RED CELL DISTRIBUTION WIDTH 12.6 % (10.0-14.5)
[2017-11-05 13:31] LABS: ALANINE AMINOTRANSFERASE 16 U/L (0-55); ALBUMIN 4.7 GM/DL (3.2-4.5); ALKALINE PHOSPHATASE 42 U/L (40-136); BILIRUBIN,TOTAL 0.4 MG/DL (0.1-1.0); BUN/CREATININE RATIO 13; CALCIUM 9.7 MG/DL (8.5-10.1); CARBON DIOXIDE 27 MMOL/L (21-32); CHLORIDE 101 MMOL/L (98-107); CREATININE SERUM 1.36 MG/DL (0.60-1.30); GFR ESTIMATED 41; GLUCOSE 112 MG/DL (70-105); POTASSIUM 3.9 MMOL/L (3.6-5.0); SODIUM 137 MMOL/L (135-145); TOTAL PROTEIN 6.4 GM/DL (6.4-8.2)
[2017-11-05 14:13] LABS: BILIRUBIN,URINE NEGATIVE (NEGATIVE); CLARITY,URINE CLEAR; COLOR,URINE YELLOW; GLUCOSE, URINE (UA) NEGATIVE (NEGATIVE); KETONES,URINE NEGATIVE (NEGATIVE); LEUKOCYTE ESTERASE ,URINE 1+ (NEGATIVE); NITRITE,URINE NEGATIVE (NEGATIVE); PH,URINE 6 (5-9); PROTEIN,URINE 1+ (NEGATIVE); UROBILINOGEN,URINE NORMAL (NORMAL)
[2017-11-05] MEDS ORDERED: ONDANSETRON 4 MG/2 ML (SDV) Z0FRAN IVP ONE (14:15)
[2017-11-05 14:21] LABS: BACTERIA,URINE TRACE /HPF; WBC,URINE 0-2 /HPF
--- NOTE | 2017-11-05 14:51 | ED General ---
General Chief Complaint: Dizziness/Syncope Stated Complaint: LOW BP//DIZZINESS Nursing Triage Note: PT AMB TO ROOM #6 W/O DIFFICULTY. A&OX4. CO LOW BP, DIZZINESS, LETHRAGY, TREMORS, AND NAUSEA. PT REPORTS ON 10/29/17 SHE HAD A SYNCOPE EPISODE AFTER BECOMING DIZZY, LH, AND HAVING VISUAL CHANGES. PT REPORTS HER SON REPORTS SHE DID NOT HIT HER HEAD. SINCE EPISODE, PT HAS FELT LETHARGIC, WEAK, DIZZY, AND SHAKY. PT REPORTS SHE BEGAN TO FEEL LH AND DIZZY THIS MORNING, TOOK HER BP, AND AFTER SEEING LOW BP, PT PRESENTED TO ED. PT REPORTS SHE DID NOT TAKE HER BP MEDICATIONS THIS MORNING. PT REPORTS SHE HAS "SHORT TERM MEMORY LOSS" SINCE HER CRANIOTOMY IN 2014. Nursing Sepsis Screen: No Definite Risk Source of Information: Patient Exam Limitations: No Limitations History of Present Illness Date Seen by Provider: Nov 05, 2017 Time Seen by Provider: 14:48 Initial Comments The patient is a 52-year-old white female who reports she reported here after calling [facility] and informing them of low blood pressures and syncope. She states she was advised to come here at that time. She takes antihypertensives. She has recorded multiple readings on a daily basis. Some of these were as low as 70/50. She uses an automatic blood pressure system at home. She also wonders whether this could be anxiety. In addition she reports that she has a heart murmur/valve problem Timing/Duration: 1 Week Severity: Mild, Moderate Associated Systoms: Weakness Allergies and Home Medications Allergies Coded Allergies: Sulfa (Sulfonamide Antibiotics) (Verified Allergy, Unknown, 05/24/16) divalproex sodium (Verified Allergy, Unknown, 05/24/16) hydromorphone (Unverified Allergy, Unknown, 08/24/17) iodine (Verified Allergy, Unknown, 05/24/16) Home Medications Alprazolam 0.5 Mg Tablet, 0.5 MG PO TID PRN for ANXIETY, (Reported) Aspirin 81 Mg Tablet.dr, 81 MG PO HS, (Reported) Cholecalciferol (Vitamin D3) 400 Unit Capsule, 400 UNIT PO DAILY, (Reported) Cyanocobalamin 1,000 Mcg/Ml Inj, 1,000 MCG IJ MONTHLY, (Reported) Duloxetine HCl 30 Mg Capsule.dr, 30 MG PO DAILY, (Reported) Folic Acid 0.4 Mg Tablet, 0.4 MG PO DAILY, (Reported) Ibuprofen 200 Mg Tablet, 600-800 MG PO Q6H PRN for PAIN-MILD, (Reported) Lisinopril 40 Mg Tablet, 40 MG PO DAILY, (Reported) Metoprolol Tartrate 25 Mg Tablet, 25 MG PO HS, (Reported) Ondansetron 4 Mg Tab.rapdis, 4 MG PO Q4H Prescribed by: MARJAN STOLL on 06/19/17 1206 Potassium Chloride 10 Meq Tab.er.prt, 10 MEQ PO 1600, (Reported) Pravastatin Sodium 80 Mg Tablet, 80 MG PO HS, (Reported) Prochlorperazine Maleate 10 Mg Tablet, 10 MG PO Q6H PRN for NAUSEA/VOMITING-2ND LINE Prescribed by: MARJAN STOLL on 06/19/17 1206 Prochlorperazine Maleate 10 Mg Tablet, 10 MG PO Q6H PRN for NAUSEA/VOMITING-1ST LINE Prescribed by: WHITLEY WYMAN on 08/24/17 1130 Tizanidine HCl 4 Mg Tablet, 4 MG PO TID PRN for MUSCLE SPASMS, (Reported) Zolpidem Tartrate 10 Mg Tablet, 10 MG PO HS PRN for SLEEP, (Reported) Patient Home Medication List Home Medication List Reviewed: Yes Review of Systems Constitutional: see HPI, dizziness EENTM: no symptoms reported Respiratory: no symptoms reported Cardiovascular: vascular heart diseas Gastrointestinal: no symptoms reported Genitourinary: no symptoms reported Musculoskeletal: muscle weakness Psychiatric/Neurological: No Symptoms Reported Hematologic/Lymphatic: No Symptoms Reported Immunological/Allergic: no symptoms reported Past Bpamvdv-Tdxxii-Ipujxe Hx Patient Social History Alcohol Use: Denies Use Recreational Drug Use: No Smoking Status: Current Everyday Smoker Type Used: Cigarettes 2nd Hand Smoke Exposure: Yes Recent Foreign Travel: No Contact w/Someone Who Travel: No Recent Infectious Disease Expo: No Recent Hopitalizations: No Physical Abuse: No Sexual Abuse: No Seasonal Allergies Seasonal Allergies: Yes Past Medical History Surgeries: Yes (COLLOID CYST REMOVED FROM 3RD VENTRICLE; CARDIAC CATH 2011-- NORMAL) Cardiac, Gallbladder, Hysterectomy, Neurological, Tonsillectomy Respiratory: No Cardiac: Yes (MVP) Heart Murmur, High Cholesterol, Hypertension, Valvular Heart Disease Neurological: Yes (BRAIN SURGERY X 2 FOR COLLOID CYST 3RD VENTRICLE) 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 6.0oz. 68.444478yr; 18.9 BMI Method:Stated General Appearance: Anxious Eyes: Bilateral Eye Normal Inspection HEENT: Normal ENT Inspection Neck: Full Range of Motion Respiratory: Chest Non Tender, Lungs Clear, Normal Breath Sounds, No Accessory Muscle Use, No Respiratory Distress Cardiovascular: Regular Rate, Rhythm, No Edema, No Gallop, No JVD Gastrointestinal: Normal Bowel Sounds, No Organomegaly, No Pulsatile Mass, Non Tender Back: Normal Inspection Extremity: Normal Capillary Refill, Normal Inspection, Normal Range of Motion, Non Tender, No Calf Tenderness, No Pedal Edema Neurologic/Psychiatric: Alert, Oriented x3, No Motor/Sensory Deficits, Normal Mood/Affect Skin: Normal Color, Warm/Dry Lymphatic: No Adenopathy Progress/Results/Core Measures Suspected Sepsis Recent Fever Within 48 Hours: No Infection Criteria Present: None New/Unexplained Altered Menta: No Sepsis Screen: No Definite Risk SIRS Temperature:98.2 Pulse: 72 Respiratory Rate: 16 Laboratory Tests 11/05/17 13:00: White Blood Count 7.0 Blood Pressure 129 /84 Mean: 99 Laboratory Tests 11/05/17 13:00: Creatinine 1.36H, Platelet Count 265, Total Bilirubin 0.4 Results/Orders Lab Results Laboratory Tests Test 11/05/17 13:00 11/05/17 14:06 Range/Units White Blood Count 7.0 4.3-11.0 10^3/uL Red Blood Count 4.04 L 4.35-5.85 10^6/uL Hemoglobin 13.1 11.5-16.0 G/DL Hematocrit 37 35-52 % Mean Corpuscular Volume 92 80-99 FL Mean Corpuscular Hemoglobin 32 25-34 PG Mean Corpuscular Hemoglobin Concent 35 32-36 G/DL Red Cell Distribution Width 12.6 10.0-14.5 % Platelet Count 265 130-400 10^3/uL Mean Platelet Volume 9.0 7.4-10.4 FL Neutrophils (%) (Auto) 62 42-75 % Lymphocytes (%) (Auto) 30 12-44 % Monocytes (%) (Auto) 6 0-12 % Eosinophils (%) (Auto) 3 0-10 % Basophils (%) (Auto) 1 0-10 % Neutrophils # (Auto) 4.3 1.8-7.8 X 10^3 Lymphocytes # (Auto) 2.1 1.0-4.0 X 10^3 Monocytes # (Auto) 0.4 0.0-1.0 X 10^3 Eosinophils # (Auto) 0.2 0.0-0.3 10^3/uL Basophils # (Auto) 0.0 0.0-0.1 10^3/uL Sodium Level 137 135-145 MMOL/L Potassium Level 3.9 3.6-5.0 MMOL/L Chloride Level 101 98-107 MMOL/L Carbon Dioxide Level 27 21-32 MMOL/L Anion Gap 9 5-14 MMOL/L Blood Urea Nitrogen 17 7-18 MG/DL Creatinine 1.36 H 0.60-1.30 MG/DL Estimat Glomerular Filtration Rate 41 BUN/Creatinine Ratio 13 Glucose Level 112 H 70-105 MG/DL Calcium Level 9.7 8.5-10.1 MG/DL Corrected Calcium 8.5-10.1 MG/DL Total Bilirubin 0.4 0.1-1.0 MG/DL Aspartate Amino Transf (AST/SGOT) 14 5-34 U/L Alanine Aminotransferase (ALT/SGPT) 16 0-55 U/L Alkaline Phosphatase 42 40-136 U/L Total Protein 6.4 6.4-8.2 GM/DL Albumin 4.7 H 3.2-4.5 GM/DL Urine Color YELLOW Urine Clarity CLEAR Urine pH 6 5-9 Urine Specific [place] 1.015 L 1.016-1.022 Urine Protein 1+ H NEGATIVE Urine Glucose (UA) NEGATIVE NEGATIVE Urine Ketones NEGATIVE NEGATIVE Urine Nitrite NEGATIVE NEGATIVE Urine Bilirubin NEGATIVE NEGATIVE Urine Urobilinogen NORMAL NORMAL MG/DL Urine Leukocyte Esterase 1+ H NEGATIVE Urine RBC (Auto) NEGATIVE NEGATIVE Urine RBC NONE /HPF Urine WBC 0-2 /HPF Urine Squamous Epithelial Cells 5-10 /HPF Urine Crystals NONE /LPF Urine Bacteria TRACE /HPF Urine Casts PRESENT /LPF Urine Hyaline Casts 2-5 H /LPF Urine Mucus SMALL H /LPF Urine Culture Indicated NO My Orders Orders - MAMTA RASMUSSEN MD Cbc With Automated Diff (11/05/17 13:02) Comprehensive Metabolic Panel (11/05/17 13:02) Ua Culture If Indicated (11/05/17 13:02) Ondansetron Injection (Zofran Injectio (11/05/17 14:15) Ns Iv 1000 Ml (Sodium Chloride 0.9%) (11/05/17 16:15) Ct Head Wo (11/05/17 16:02) Fentanyl Injection (Sublimaze Injection (11/05/17 16:30) Medications Given in ED Current Medications Medications Dose Ordered Sig/Francisco Route Start Time Stop Time Status Last Admin Dose Admin Fentanyl Citrate 50 mcg ONCE ONCE IVP 11/05/17 16:30 11/05/17 16:31 DC 11/05/17 16:26 50 MCG Ondansetron HCl 8 mg ONCE ONCE IVP 11/05/17 14:15 11/05/17 14:16 DC 11/05/17 14:12 8 MG Vital Signs/I&O 11/05/17 12:46 Temp 98.2 Pulse 72 Resp 16 B/P (MAP) 129/84 (99) Pulse Ox 99 O2 Delivery Room Air Capillary Refill : Less Than 3 Seconds Blood Pressure Mean: 99 Departure Communication (Admissions) The patient began to complain of a severe headache. It is noted that she had a colloid cyst removed by craniotomy in 2014. Continued pain required the removal of hardware in 2016. She has a palpable bone defect along the sagittal suture on the right. The blood pressure here has been considerably more normal than those reported from her home machine. Impression Primary Impression: Chronic headaches Additional Impression: Recurrent headache Disposition: HOME, SELF-CARE Condition: Stable/Unchanged Departure-Patient Inst. Decision time for Depature: 17:14 Referrals: [facility] (PCP) Primary Care Physician OSBALDO CORRAL APRN (Family) Primary Care Physician Patient Instructions: Orthostatic Hypotension (DC) Add. Discharge Instructions: All discharge instructions reviewed with patient and/or family. Voiced understanding. Stop here blood pressure medicines and acquire an appointment with your provider for next week. Continue oxycodone as prescribed. MAMTA RASMUSSEN MD Nov 05, 2017 14:51
[2017-11-05] MEDS ORDERED: NS IV 1000 ML 1,000 ML IV SCH (16:15)
[2017-11-05] MEDS ORDERED: fentaNYL INJECTION 100 MCG/2 ML AMP IVP ONE (16:30)
--- NOTE | 2017-11-05 16:57 | Diagnostic Imaging Report ---
PROCEDURE: CT head without contrast. TECHNIQUE: Multiple contiguous axial images were obtained through the brain without the use of intravenous contrast. INDICATION: Hypotension, dizziness. History of prior brain surgery for cyst. CORRELATION STUDY: 08/24/2017 FINDINGS: Right frontal иван hole is present. The ventricles and sulci appearing generally stable with asymmetric larger left lateral ventricle compared to the right. Basilar cisterns are unchanged. A few scattered areas of asymmetric decreased attenuation are present likely owing to change of small vessel ischemic disease. Visualized portions of the posterior fossa are unremarkable. Paranasal sinuses and mastoid air cells clear. IMPRESSION: 1. Generally stable noncontrast CT imaging of the head demonstrates no acute intracranial abnormality. Given symptoms, if further assessment is desired, MRI would be recommended. Dictated by: Dictated on workstation # [id number]
[2017-11-05 17:56] VITALS: BP 136/68
== END 2017-11-05 17:56 | disposition home or self-care (01) ==
LOC: EDUNIT# 12:09 → ER 12:13
DX: R51 Headache (principal); E78.00 Pure hypercholesterolemia, unspecified; I10 Essential (primary) hypertension; G43.909 Migraine, unspecified, not intractable, without status migrainosus; F41.9 Anxiety disorder, unspecified; F32.9 Major depressive disorder, single episode, unspecified; F17.210 Nicotine dependence, cigarettes, uncomplicated; Z90.710 Acquired absence of both cervix and uterus; Z90.89 Acquired absence of other organs; Z88.2 Allergy status to sulfonamides; Z91.041 Radiographic dye allergy status; Z88.8 Allergy status to other drugs, medicaments and biological substances; Z79.82 Long term (current) use of aspirin
CPT/HCPCS: 36415; 70450; 80053; 81000; 85025; 96374; 96375

== ENCOUNTER → 2017-12-25 | Emergency (ER) | payer MEDICARE, MEDICAID ==
[~2017-12-25] VITALS: Ht 172.7 cm; Wt 68.2 kg
[~2017-12-25] MED LIST changes: +ASPIRIN 81 MG CHEW (CHILDREN'S ASA) PO ONE; +KETOROLAC 30 MG/ML VIAL IVP ONE; +KETOROLAC 30 MG/ML VIAL ONE; +LORazepam INJ 2 MG/ML (ATIVAN) VIAL IVP ONE; +LORazepam INJ 2 MG/ML (ATIVAN) VIAL ONE; +NITROGLYCERIN 2% OINT 1 GM UNIT DOSE PACKET TOP ONE; +ONDANSETRON 4 MG/2 ML (SDV) Z0FRAN IVP ONE; +ONDANSETRON 4 MG/2 ML (SDV) Z0FRAN ONE; +ORPHENADRINE 60 MG/2 ML (NORFLEX) AMP IV ONE; +methylPREDNISolone 125 MG (Solu-MEDROL) VIAL IVP ONE
--- OUTSIDE RECORDS SUMMARY | 2017-12-25 03:04 | XMS REPORT | Encounter Summary ---
Author Author [facility] Address Unknown Phone Unavailable Care Team Providers Care Leather Cartridge Belt Maker Name Role Phone Fidencio Fitzgerald MD PCP Reason for Referral * Consult, Test & Treat (Routine) Status Reason Specialty Diagnoses / Referred By Referred To Procedures Contact Contact New Request Specialty Psychiatry Diagnoses Harpreet Reilly, [facility] Chronic Ortho and Medical Required intractable [address] headache, [address] unspecified [address] [place], [place] [address] Scalp injury, [address] Phone: sequela [phone] * Consult, Test & Treat (Routine) Status Reason Specialty Diagnoses / Referred By Referred To Procedures Contact Contact Closed Specialty Integrative Diagnoses Harpreet Reilly [facility] Medicine Chronic MD Med Required intractable [address] headache, [address] unspecified [address] [place], [place] [address] Scalp [place], [address] Phone: sequela [phone] Reason for Visit * Reason Comments Pain skull pain * Consult, Test & Treat (Routine) Status Reason Specialty Diagnoses / Referred By Referred To Procedures Contact Contact No Auth Needed Neurology Procedures Contreras Easley Bellew, Michael R , NEW PATIENT AFSHAN STERN [address] [place] [id number] Encounter Details Date Type Department Care Team Description 11/26/2017 Office Visit [facility] Shawn Pressley MD Chronic intractable Physicians-Neurology [address] headache, unspecified [facility] [place] [address] headache type (Primary [address] Dx); [place], [place] Scalp injury, sequela [address] Social History Tobacco Use Types Packs/Day Years Used Date Current Every Day Smoker 0.5 Smokeless Tobacco: Never Used Alcohol Use Drinks/Week oz/Week Comments No Sex Assigned at Date Recorded Not on file as of this encounter Last Filed Vital Signs Vital Sign Reading Time Taken Blood Pressure 121/83 11/26/2017 1:11 PM CDT Pulse 68 11/26/2017 1:11 PM CDT Temperature - - Respiratory Rate - - Oxygen Saturation - - Inhaled Oxygen - - Concentration Weight 64.4 kg (142 lb) 11/26/2017 1:11 PM CDT Height 172.7 cm (5' 8") 11/26/2017 1:11 PM CDT Body Mass Index 21.59 11/26/2017 1:11 PM CDT in this encounter Progress Notes * Harpreet Reilly MD - 11/26/2017 1:00 PM CDT Pt seen, examined and discussed with Dr. Pressley. I agree with his hx, findings, impressions and plan. * Shawn Pressley MD - 11/26/2017 1:00 PM CDT Formatting of this note may be different from the original. Date of Service: 11/26/2017 Subjective: Jo Ann Wiley is a 52 y.o. female. History of Present Illness Ms. 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 Patient states that pain started with onset of hydrocephalus and has continued, although morphed, to its present/current state. Patient relates her head pain to her bone flap procedure stating her headaches have changed, "because my bone flap is moving" and "I have a piss poor quality of life; my skull controls everything I do everyday." Patient was seen by neurosurgery at [facility] in 12/2016 for evaluation of the headache and ear drainage. Neurosurgery did not indicate any surgical or anatomic intervention at that time. Patient states she has different intensities of the same morphology of head pain. The intensity of head pain correlates with her skull flap "moving." The following intensities are based on "bone flap" location and level of protrusion ; they are labeled as #1, #2, #3 with decreasing intensity of pain with ascending numeration. #1 Patient describes bone flap as being underneath the scalp and partially protruding/ "sticking up" at the skin. Patient states the pain is at the location of the bone flap on the vertex/ parietal area of the skull on the right side. Patient says this state of the bone flap causes a pressure like pain in her ears and a sharp pain behind her eye (usually the left eye). The pain is exacerbated by movement and/or touching the bone flap. Patient states pain is associated with nausea, vomiting, phonophobia, photophobia, dizziness, blurring of the vision (usually only left eye (monocular)). Patient also states the left side of her face becomes numb and tingles. Patient also states that she will have bilateral hand tremors where her bilateral hands will shake for approximately an hour. Patient also states her left lip will quiver with these pain episodes. These headaches occur every day and are only relieved with percocet. She states headaches will last 4- 5 hours after taking a percocet which she takes daily. Patient states she has tried fentanyl, occipital block; she used to used NSAIDS as well but due to "kidney problems" was instructed to stop taking them. #2 Patient states her bone flap makes a gap between its location and the rest of her skull as wide as her pinky. Patient states this pain is not as intense as her "ridge" bone flap pain, but pain occurs in the same area and with similar characterization ie pressure. Patient states she has less dizziness, nausea, vomiting. This pain is also relieved with percocet. Patient states this pain will occur intermittently. This pain is more associated with chage in weather than #1. #3 Patient describes her bone flap as lying flat, "feels smooth." She states this pain is the same as the above, just less intense. Patient denies loss of sensation, weakness. Patient states her head pain is worse with standing and improves when laying down. This contradicts what was documented by Dr. Gonzalez from [facility] in [place] note dated 10/05/17. Patient states she has tried ibuprofen, aleve, botox injections, occipital block , maxalt, imatrex, amitriptyline, fenanyl patches, topamax. Patient states none have helped. Patient states that most recently she has tried imatrex and had a negative reaction stating, it felt "like I was having a magnesium drip" she describes feeling like her whole body was on fire. Patient states she has difficulty with sleep with falling asleep and staying asleep. She relates this difficulty to the head pain. She states also that she had no relief with amitriptyline. Patient indicates the the position of her bone flap is contingent and changes with barometric pressure and weather changes, stating she will wake up in pain if/when the weather changes. Furthermore, patient states she is unable to drive, cook, leave the house most days secondary to the pain. Patient states she mostly orders takeout food and pizza. Past Medical History: Diagnosis Date Anxiety disorder Depression Empty sella (HCC) Fibromyalgia Generalized headaches High cholesterol Hypertension Hypokalemia Pancreatitis Pernicious anemia Spinal stenosis Past Surgical History: Procedure Laterality Date HX BRAIN SURGERY HX CHOLECYSTECTOMY HX HYSTERECTOMY Social History Social History Marital status: Single Spouse name: N/A Number of children: N/A Years of education: N/A Social History Main Topics Smoking status: Current Every Day Smoker Packs/day: 0.50 Smokeless tobacco: Never Used Alcohol use No Drug use: No Sexual activity: Not on file Per chart, family history: patient adopted. Review of Systems Constitutional: Positive for activity change, appetite change, chills and fatigue. HENT: Positive for ear pain, hearing loss and tinnitus. Eyes: Positive for photophobia and pain. Gastrointestinal: Positive for constipation and nausea. Genitourinary: Positive for frequency and urgency. Musculoskeletal: Positive for neck pain. Neurological: Positive for dizziness, tremors, syncope, weakness, light- headedness, numbness and headaches. Psychiatric/Behavioral: Positive for confusion, decreased concentration and sleep disturbance. The patient is nervous/anxious. Objective: ALPRAZolam (XANAX) 0.5 mg tablet TAKE ONE TABLET BY MOUTH THREE TIMES DAILY Ndrqwsy-Qobecpguy-Drxv tab Take 1 tablet by mouth twice daily. chlorthalidone (HYGROTON) 25 mg tablet Take 25 mg by mouth daily. cyanocobalamin (VITAMIN B-12, RUBRAMIN) 1,000 mcg/mL injection duloxetine DR (CYMBALTA) 30 mg capsule TAKE ONE CAPSULE BY MOUTH ONCE DAILY IN THE MORNING folic acid 400 mcg tablet Take by mouth. lisinopril (PRINIVIL, ZESTRIL) 40 mg tablet Take 20 mg by mouth. metoprolol tartrate (LOPRESSOR) 25 mg tablet Take 25 mg by mouth. ondansetron (ZOFRAN) 4 mg tablet Take 4 mg by mouth every 8 hours as needed for Nausea or Vomiting. oxyCODONE/acetaminophen (PERCOCET; ENDOCET; ROXICET) 5/325 mg tablet Take 7.5 tablets by mouth every 6 hours potassium chloride (K-DUR) 10 mEq tablet Take by mouth. pravastatin (PRAVACHOL) 80 mg tablet TAKE ONE TABLET BY MOUTH ONCE DAILY temazepam (RESTORIL) 15 mg capsule Take 15 mg by mouth at bedtime as needed. tiZANidine (ZANAFLEX) 4 mg tablet TAKE ONE TABLET BY MOUTH THREE TIMES DAILY NEEDED TRIAMTERENE-HYDROCHLOROTHIAZID PO Take by mouth. vitamins, B complex tab Take 1 tablet by mouth daily. zolpidem (AMBIEN) 10 mg tablet TAKE ONE TABLET BY MOUTH ONCE DAILY AT BEDTIME Vitals: 11/26/17 1311 BP: 121/83 Pulse: 68 Weight: 64.4 kg (142 lb) Height: 172.7 cm (68") Body mass index is 21.59 kg/m. Physical Exam General physical exam: HEENT: normocephalic with post cranial surgical procedure scar, eyes open with no discharge, nares patent, oropharynx is clear with no lesions CV: regular rate Chest: normal configuration, no resp distress Ab: soft, non-tender, no masses, no organomegaly Skin: no rashes or lesions Neuro exam: Mental status: Awake, alert, and oriented to person, place, time and location/ situation Speech: Normal Abnormal Fluency x Comprehension x Articulation x Repetition Naming x Cranial Nerves: Normal Abnormal II Pupils equal (3mm), round, reactive. Fundus unremarkable III, IV, EOMI, no nystagmus V Intact to LT in V1-3 VII Face symmetrical, eye closure symmetrical VIII Hearing intact to finger rub IX, X Uvula midline and palate elevation symmetrical XI Shrug equal XII Tongue midline Muscle/motor: Tone: nml Bulk: nml Fasciculations: none Pronator drift: absent Neck flexors: Neck extensors: Right Left Right Left Shoulder abductors: 5 5 Hip flexors: 5 5 Elbow flexors: 5 5 Hip abductors: Elbow extensors: 5 5 Hip extensors: Wrist extensors: Hip adductors: Wrist flexors: Knee flexors: 5 5 Finger flexors: Knee extensors: 5 5 Finger extensors: Ankle plantar flexors: 5 5 Finger abductors: 5 5 Ankle dorsiflexors: 5 5 Thumb abductors: Ankle inversion: Ankle eversion: Toe extensors: Toe flexors: No abnormal movements, rigidity or spasticity Reflexes: Right Left Triceps 2 2 Biceps 2 2 Brachioradialis 2 2 Patella 2 2 Ankle 2 2 Sensation: Normal RUE LUE RLE LLE Light Touch x Pin Prick Temperature Vibration x Proprioception Missed on finger to chin Coordination: Normal Abnormal Right Abnormal Left Finger to Nose x Rapid alternating Heel to Sow x Finger tap Foot tap Other Gait and Station: Regular gait: hunched over gait wide based walking Assessment and Plan: Patient with pain which started after neurosurgical procedure. Patient describes pain as skull pain and relates her pain to her positioning of the bone flap. When she last saw neurosurgery at [facility], notes did not mention altered anatomy or indication for surgical intervention. Patient may have component of anxiety contributing to her continued pain in light of non-typical migrainous presentation and without obvious anatomical explanation. PLAN: > Patient instructed to keep a headache journal/out on her phone to document pain incidences > Patient referred to integrative medicine for biofeedback and possible acupuncture > Patient referred to psychiatry for anxiety and emotional stress > Patient started on indomethacin 25 mg 3 times daily > Patient to return to clinic in 3 months after completion of psychiatric referral and integrative medicine referral. For Next visit: > Consider sphenopalatine ganglion block referral in this encounter Plan of Treatment Name Priority Associated Diagnoses Order Schedule AMB REFERRAL TO INTEGRATIVE MEDICINE Routine Chronic intractable Ordered : 11/26/2017 headache, unspecified headache type Scalp injury, sequela AMB REFERRAL TO PSYCHIATRY Routine Chronic intractable Ordered: 2017 headache, unspecified headache type Scalp injury, sequela as of this encounter Visit Diagnoses Diagnosis Chronic intractable headache, unspecified headache type - Primary Scalp injury, sequela
--- OUTSIDE RECORDS SUMMARY | 2017-12-25 03:04 | XMS REPORT | Encounter Summary ---
Author Author [facility] Organization [facility] Address Unknown Phone Unavailable Care Team Providers Care Clinical Liaison Name Role Phone Fidencio Fitzgerald MD PCP Reason for Visit * Reason Comments Medication Question indomethacin Encounter Details Date Type Department Care Team Description 11/27/2017 Telephone [facility] Shawn Pressley MD Medication Question Physicians-Neurology [address] [facility] (indomethacin) Formerly [facility] [place] [address] [address] [place] [address] Social History Tobacco Use Types Packs/Day Years Used Date Current Every Day Smoker 0.5 Smokeless Tobacco: Never Used Alcohol Use Drinks/Week oz/Week Comments No Sex Assigned at Date Recorded Not on file as of this encounter Miscellaneous Notes * Telephone Encounter - Betty Grace RN - 11/27/2017 11:02 AM CDT Patient contacted pharmacy who told her that indomethacin was not on her insurance formulary. Staff discussed with neurology resident who stated it was okay for patient not to take medication and that they were more hopeful for her to have benefit from integrative medicine and psychiatry referrals. Patient informed and verbalized understanding and will call staff back if she has not heard from schedulers on these referrals in about a week. in this encounter Plan of Treatment Not on fileas of this encounter Visit Diagnoses Not on filein this encounter
--- OUTSIDE RECORDS SUMMARY | 2017-12-25 03:04 | XMS REPORT | Encounter Summary ---
Author Author [facility] Organization [facility] Address Unknown Phone Unavailable Care Team Providers Care Health Technician Hearing Name Role Phone Fidencio Fitzgerald MD PCP Reason for Visit * Reason Comments Other Encounter Details Date Type Department Care Team Description 12/07/2017 Telephone [facility] Harpreet Reilly MD Other Physicians-Neurology [address] [facility] [place] [address] [place] [address] [place], [place] [phone] Social History Tobacco Use Types Packs/Day Years Used Date Current Every Day Smoker 0.5 Smokeless Tobacco: Never Used Alcohol Use Drinks/Week oz/Week Comments No Sex Assigned at Date Recorded Not on file as of this encounter Miscellaneous Notes * Telephone Encounter - Harpreet Reilly MD - 12/24/2017 1:[address] Pressley's note dated 11-27-17 indicating he had discussed with the patient that it was OK to not take any additional medication and that we were hopeful that Integrative Medicine and Psychiatry referrals would be helpful and the patient was described as in agreement. Today I phoned Pt and left message indicating my understanding of that encounter and asked her to contact us if that is not correct. * Telephone Encounter - Yvette Sanz LPN - 12/11/2017 10:47 AM CDT Indomethacin not covered by insurance. Suggest Nabumetone or Naproxen . Please advise. * Telephone Encounter - Janie Gaxiola - 12/07/2017 10:03 AM CDT Receviced determination from covermymeds for medication Indomethacin,DENIED not on preferred drug list request another medication patient and physician notified of outcome in this encounter Plan of Treatment Not on fileas of this encounter Visit Diagnoses Not on filein this encounter
--- OUTSIDE RECORDS SUMMARY | 2017-12-25 03:04 | XMS REPORT | Encounter Summary ---
Author Author [facility] Organization [facility] Address Unknown Phone Unavailable Care Team Providers Care Information Analyst Name Role Phone Fidencio Fitzgerald MD PCP Encounter Details Date Type Department Care Team Description 12/01/2017 Ancillary Rad Outpatient, Radiologist Diagnosis unknown Orders [address] [place] [address] Social History Tobacco Use Types Packs/Day Years Used Date Current Every Day Smoker 0.5 Smokeless Tobacco: Never Used Alcohol Use Drinks/Week oz/Week Comments No Sex Assigned at Date Recorded Not on file as of this encounter Plan of Treatment Not on fileas of this encounter Results * MRI HEAD EXTERNAL IMAGING (10/14/2017) Narrative Performed At This order has been auto finalized and does not contain a result. in this encounter Visit Diagnoses Diagnosis Diagnosis unknown Other unknown and unspecified cause of morbidity or mortality
--- OUTSIDE RECORDS SUMMARY | 2017-12-25 03:04 | XMS REPORT | Encounter Summary ---
Author Author [facility] Organization [facility] Address Unknown Phone Unavailable Care Team Providers Care Paper Finisher Name Role Phone Fidencio Fitzgerald MD PCP Encounter Details Date Type Department Care Team Description 12/03/2017 Telephone [facility] Harpreet Reilly MD Physicians-Neurology [address] [facility] [place] [address] [place] [address] [place], [place] [phone] Social History Tobacco Use Types Packs/Day Years Used Date Current Every Day Smoker 0.5 Smokeless Tobacco: Never Used Alcohol Use Drinks/Week oz/Week Comments No Sex Assigned at Date Recorded Not on file as of this encounter Miscellaneous Notes * Telephone Encounter - Janie Gaxiola - 12/03/2017 11:41 AM CDT Received prior auth requst from [facility] [phone] submitted via covermymeds. in this encounter Plan of Treatment Not on fileas of this encounter Visit Diagnoses Not on filein this encounter
--- OUTSIDE RECORDS SUMMARY | 2017-12-25 03:04 | XMS REPORT | Clinical Summary ---
Author Author [facility] Organization [facility] Address Unknown Phone Unavailable Care Team Providers Care Paradi Tender Name Role Phone Fidencio Fitzgerald MD PCP Source Comments Some departments are not documenting in the electronic medical record. If you do not see the information that you expected, contact Release of Information in the Health Information Management department at [phone] for further assistance in locating additional records.[facility] Allergies Active Allergy Reactions Severity Noted Date Comments Divalproex CHEST TIGHTNESS Medium 10/06/2016 Chest pain and palpitations. Iodine And Iodide HIVES Medium 03/01/2014 Chest pain Containing Products Sulfa (Sulfonamide EDEMA Medium 03/01/2014 Antibiotics) Current Medications Prescription Sig. Disp. Refills Start End Date Status Date lisinopril (PRINIVIL, Take 20 mg by mouth. Active ZESTRIL) 40 mg tablet pravastatin (PRAVACHOL) TAKE ONE TABLET BY MOUTH 0 11/07/19 Active 80 mg tablet ONCE DAILY 17 potassium chloride Take by mouth. Active (K-DUR) 10 mEq tablet oxyCODONE/acetaminophen Take 7.5 tablets by mouth Active (PERCOCET; ENDOCET; every 6 hours ROXICET) 5/325 mg tablet tiZANidine (ZANAFLEX) [...] Active tablet ONCE DAILY AT BEDTIME 17 Rsghkyi-Glwwftidr-Pfpd Take 1 tablet by mouth Active tab twice daily. ondansetron (ZOFRAN) 4 mg Take 4 mg by mouth every Active tablet 8 hours as needed for Nausea or Vomiting. vitamins, B complex tab Take 1 tablet by mouth Active daily. temazepam (RESTORIL) 15 Take 15 mg by mouth at Active mg capsule bedtime as needed. chlorthalidone (HYGROTON) Take 25 mg by mouth Active 25 mg tabletIndications: daily. 1/2 tab bid prn indomethacin (INDOCIN) 25 Take one capsule by mouth 90 capsule 3 11/26 Active mg capsuleIndications: three times daily. Take 18 headache with food. Active Problems Problem Noted Date Colloid cyst of third ventricle (HCC) 01/08/2017 Encounters Date Type Specialty Care Team Description 12/07/2017 Telephone Neurology Harpreet Reilly MD Other 12/03/2017 Telephone Neurology Harpreet Reilly MD 12/01/2017 Ancillary Radiology Outpatient, Radiologist Diagnosis unknown Orders 11/27/2017 Telephone Neurology Shawn Pressley MD Medication Question (indomethacin) 11/26/2017 Office Visit Neurology Shawn Pressley MD Chronic intractable headache, unspecified headache type (Primary Dx); Scalp injury, sequela 11/23/2017 Telephone Neurology Logan Mathew MD Pre-Visit Planning (Dr. Pressley 11/26/17) 10/14/2017 Hospital Radiology Encounter from Last 3 Months Social History Tobacco Use Types Packs/Day Years [...] Mass Index 21.59 11/26/2017 1:11 PM CDT Plan of Treatment Health Maintenance Due Date Last Done Comments PHYSICAL (COMPREHENSIVE) 1972 EXAM PERTUSSIS VACCINE 1976 HIV SCREENING 1980 TETANUS VACCINE 1982 CERVICAL CANCER SCREENING 08/23/1995 BREAST CANCER SCREENING 2005 COLORECTAL CANCER 08/23/2015 SCREENING SHINGLES RECOMBINANT 08/23/2015 VACCINE (1 of 2) INFLUENZA VACCINE 12/28/2017 Procedures Procedure Name Priority Date/Time Associated Diagnosis Comments MRI HEAD EXTERNAL IMAGING Routine 10/14/2017 Diagnosis unknown Results for this 12:00 AM CDT procedure are in the results section. from Last 3 Months Results * MRI HEAD EXTERNAL IMAGING (10/14/2017) Narrative Performed At This order has been auto finalized and does not contain a result. from Last 3 Months
--- OUTSIDE RECORDS SUMMARY | 2017-12-25 03:05 | XMS REPORT | Encounter Summary ---
Author Author [facility] Organization [facility] Address Unknown Phone Unavailable Care Team Providers Care Hydro Generation Manager Name Role Phone Fidencio Fitzgerald MD PCP Encounter Details Date Type Department Care Team Description 10/14/2017 Hospital [facility] Encounter Hospital Radiology Main Hospital [facility] [address] [place] [address] Social History Tobacco Use Types Packs/Day Years Used Date Current Every Day Smoker 0.5 Smokeless Tobacco: Never Used Alcohol Use Drinks/Week oz/Week Comments No Sex Assigned at Date Recorded Not on file as of this encounter Medications at Time of Discharge Medication Sig. Disp. Refills Start Date End Date ALPRAZolam (XANAX) 0.5 mg TAKE ONE TABLET BY MOUTH 0 12/11/2016 tablet THREE TIMES DAILY Qtqwbpz-Ekxsxmxaj-Oyoy Take 1 tablet by mouth tab twice daily. cyanocobalamin (VITAMIN 01/07/2017 B-12, RUBRAMIN) 1,000 mcg/mL injection duloxetine DR (CYMBALTA) TAKE ONE CAPSULE BY MOUTH 0 12/10/2016 30 mg capsule ONCE DAILY IN THE MORNING folic acid 400 mcg tablet Take by mouth. lisinopril (PRINIVIL, Take 20 mg by mouth. ZESTRIL) 40 mg tablet metoprolol tartrate Take 25 mg by mouth. (LOPRESSOR) 25 mg tablet oxyCODONE/acetaminophen Take 7.5 tablets by mouth (PERCOCET; ENDOCET; every 6 hours ROXICET) 5/325 mg tablet potassium chloride Take by mouth. (K-DUR) 10 mEq tablet pravastatin (PRAVACHOL) TAKE ONE TABLET BY MOUTH 0 11/06/2016 80 mg tablet ONCE DAILY tiZANidine (ZANAFLEX) 4 TAKE ONE TABLET BY MOUTH 0 12/08/2016 mg tablet THREE TIMES DAILY NEEDED TRIAMTERENE-HYDROCHLOROTH Take by mouth. IAZID PO zolpidem (AMBIEN) 10 mg TAKE ONE TABLET BY MOUTH 0 12/08/2016 tablet ONCE DAILY AT BEDTIME as of this encounter Plan of Treatment Not on fileas of this encounter Procedures Procedure Name Priority Date/Time Associated Diagnosis Comments MRI HEAD EXTERNAL IMAGING Routine 10/14/2017 Diagnosis unknown Results for this 12:00 AM CDT procedure are in the results section. in this encounter Results * MRI HEAD EXTERNAL IMAGING (10/14/2017) Narrative Performed At This order has been auto finalized and does not contain a result. in this encounter Visit Diagnoses Diagnosis Diagnosis unknown Other unknown and unspecified cause of morbidity or mortality
--- OUTSIDE RECORDS SUMMARY | 2017-12-25 03:05 | XMS REPORT ---
Author Author OSBALDO CORRAL Organization [facility] Address [address] [place] [address] Care Team Providers Care [employer] Operators Name Role Phone OSBALDO CORRAL Unavailable PROBLEMS Type Condition ICD9-CM Code [id number] Code Onset Dates Condition Status SNOMED Code Problem Anxiety, generalized F41.1 Active 97887990 Problem Essential hypertension I10 Active 07289202 Problem Major depressive disorder, recurrent episode, moderate F33.1 Active 380594976 Problem Abnormal laboratory test R89.9 Active 785482503 Problem Vitamin B12 deficiency anemia due to intrinsic factor deficiency D51.0 Active 69896651 Problem Seasonal allergic rhinitis, unspecified allergic rhinitis trigger J30.2 Active 031150949 Problem Chronic pain due to trauma G89.21 Active 107058612 Problem Migraine without status migrainosus, not intractable, unspecified migraine type G43.909 Active 40659505 Problem Adjustment disorder with mixed anxiety and depressed mood F43.23 Active 41245375 Problem Elevated serum creatinine R79.89 Active 412358494 Problem 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 Active 04376911 Problem Pernicious anemia D51.0 Active 94257341 Problem Hypokalemia E87.6 Active 45735964 Problem Other hyperlipidemia E78.4 Active 96379683 Problem Empty sella syndrome E23.6 Active 946969577 Problem Primary insomnia F51.01 Active 1136731 ALLERGIES No Information ENCOUNTERS Encounter Location Date Diagnosis [facility] [address] [facility] [id number] [address] Nov, Chronic pain due to trauma G89.21 and Anxiety, generalized F41.1 [facility] [address] [id number] [address] Oct, [facility] [address] [id number], [place] [address] Oct, Abnormal laboratory test R89.9 [facility] [id number] [place] [address] 95746- 4367 Oct, [facility] [id number] [place] [address] 91254- 3516 Oct, [facility] [id number] [place] [address] 03708- 6269 Oct, Essential hypertension I10 [facility] [id number] [place] [address] 54209- 1625 Oct, [facility] [id number] [place] [address] 57684- 0766 Oct, [facility] [id number] [place] [address] 28644- 7600 Oct, Essential hypertension I10 ; Chronic nausea R11.0 ; Hypokalemia E87.6 ; Abnormal thyroid stimulating hormone (TSH) level R79.89 and Recurrent acute suppurative otitis media without spontaneous rupture of left tympanic membrane H66.005 [facility] [id number] [place] [address] 66029- 9225 Oct, [facility] [id number] [place] [address] 71879- 8636 Oct, Chronic pain due to trauma G89.21 and Anxiety, generalized F41.1 [facility] [id number] [place] [address] 30197- 6456 Oct, [facility] [id number] [place] [address] 23262- 8307 Sep, Anxiety, generalized F41.1 and Chronic pain due to trauma G89.21 [facility] [id number] [place] [address] 43739- 3663 Sep, [facility] [id number] [place] [address] 79143- 9403 Sep, Otalgia of left ear H92.02 and Low pressure hydrocephalus G91.2 [place] [id number] [place] [address] 31398- 3177 Sep, [place] [address] 63595- 3607 Aug, Essential hypertension I10 ; 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 ; Empty sella syndrome E23.6 ; Pernicious anemia D51.0 ; Anxiety , generalized F41.1 ; Major depressive disorder, recurrent episode, moderate F33.1 ; Primary insomnia F51.01 ; Hypokalemia E87.6 and Chronic pain due to trauma G89.21 [place] [id number] [place] [address] 01013- 5372 Aug, [place] [address] 86638- 5142 Aug, Anxiety, generalized F41.1 and Osteoarthritis of spine with radiculopathy, lumbosacral region M47.27 [place] [id number] [place] [address] 46082- 1464 Aug, [place] [id number] [place] [address] 36034- 5714 Aug, Primary insomnia F51.01 [place] [id number] [place] [address] 92258- 9536 July, Anxiety, generalized F41.1 and Osteoarthritis of spine with radiculopathy, lumbosacral region M47.27 [place] [id number] [place] [address] 67251- 4645 July, Essential hypertension I10 [place] [id number] [place] [address] 03666- 6675 July, Major depressive disorder, recurrent episode, moderate F33.1 [place] [id number] [place] [address] 17904- 4172 July, Primary insomnia F51.01 [place] [id number] [place] [address] 76551- 8253 Jun, Anxiety, generalized F41.1 and Osteoarthritis of spine with radiculopathy, lumbosacral region M47.27 [facility] [address] [id number]907 Jun, Acute frontal sinusitis, recurrence not specified J01.10 ; Sinus pressure J34.89 ; Post-nasal drip R09.82 and Sore throat J02.9 [place] [address] 96541- 6955 Jun, Primary insomnia F51.01 [place] [address] 49223- 1955 May, Anxiety, generalized F41.1 and Osteoarthritis of spine with radiculopathy, lumbosacral region M47.27 [place] [address] 57510- 5339 May, Essential hypertension I10 ; 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 [id number] [place] [address] 10034 -2076 May, Migraine without status migrainosus, not intractable, unspecified migraine type G43.909 [place] [address] 09664- 2683 May, [place] [address] 62405- 3893 May, [place] [address] [id number]- 5735 May, Osteoarthritis of spine with radiculopathy, lumbosacral region M47.27 and Primary insomnia F51.01 [place] [address] 56677- 5038 May, Osteoarthritis of spine with radiculopathy, lumbosacral region M47.27 and Anxiety, generalized F41.1 [place] [address] 08965- 6885 May, [place] [address] 02201- 1239 Apr, [place] [address] 12798- 0724 Apr, [place] [address] 27605- 6901 Apr, Anxiety, generalized F41.1 ; Major depressive disorder, recurrent episode, moderate F33.1 ; Moderate episode of recurrent major depressive disorder F33.1 and Adjustment disorder with mixed anxiety and depressed mood F43.23 [place] [address] 86487- 7114 Apr, Major depressive disorder, recurrent episode, moderate F33.1 ; Anxiety, generalized F41.1 ; Essential hypertension I10 ; Primary insomnia F51.01 and 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 [place] [address] 03676- 9905 Apr, Other chest pain R07.89 ; Sinus bradycardia R00.1 ; Essential hypertension I10 and Other hyperlipidemia E78.4 [place] [address] 92431- 7076 Apr, Primary insomnia F51.01 [place] [address] 96176- 3186 Apr, [place] [address] 57719- 1419 Apr, Anxiety, generalized F41.1 [place] [id number] [place] [address] 07620- 0052 Apr, Osteoarthritis of spine with radiculopathy, lumbosacral region M47.27 [place] [id number] [place] [address] 01267- 0033 Mar, Intractable migraine without aura and without status migrainosus G43.019 and Dyshidrotic hand dermatitis L30.1 [facility] [place] [address] 33643 -4877 Mar, Skin infection L08.9 [place] [address] 58063- 2913 Mar, [facility] [place] [address] 16260 -3019 Mar, Skin lesion L98.9 [place] [address] 85052- 0226 Mar, Primary insomnia F51.01 and Anxiety, generalized F41.1 [place] [address] 57618- 3306 Mar, Osteoarthritis of spine with radiculopathy, lumbosacral region M47.27 [place] [id number] [place] [address] 15208- 2863 Feb, [place] [address] 69269- 9055 Feb, [place] [address] 11216- 2341 Feb, Hypokalemia E87.6 [place] [id number] [place] [address] 61362- 7791 Feb, Intractable migraine without aura and without status migrainosus G43.019 and Other chest pain R07.89 [place] [id number] [place] [address] 01627- 4529 14 Feb, 2017 [place] [address] 13624- 0849 Feb, Osteoarthritis of spine with radiculopathy, lumbosacral region M47.27 [place] [id number] [place] [address] 56487- 9191 Feb, Hypokalemia E87.6 [place] [id number] [place] [address] 52418- 9068 08 Feb, 2017 [place] [address] 59226- 0699 Feb, Primary insomnia F51.01 and Anxiety, generalized F41.1 [facility] [place] [id number] [place] [address] 22900 -7996 Feb, Acute suppurative otitis media of both ears without spontaneous rupture of tympanic membranes, recurrence not specified H66.003 [place] [id number] [place] [address] 56076- 7017 Feb, [place] [id number] [place] [address] 01256- 1514 Jan, Osteoarthritis of spine with radiculopathy, lumbosacral region M47.27 [place] [id number] [place] [address] 63579- 9722 Jan, Primary insomnia F51.01 and Anxiety, generalized F41.1 [place] [id number] [place] [address] 06605- 4657 02 Jan, 2017 Chronic pain due to trauma G89.21 ; Left otitis media with effusion H65.92 and Otalgia of left ear H92.[address] [facility] [id number] [place] [address] 14144 -9324 Jan, Bilateral otitis media with effusion H65.93 [place] [id number] [place] [address] 21842- 0843 Dec, [facility] [id number] [place] [address] 91209- 0670 Dec, Primary insomnia F51.01 and Anxiety, generalized F41.1 [facility] [id number] [place] [address] 82864- 5981 25 Nov, 2016 [place] [address] 57387- 8812 15 Nov, 2016 [facility] [id number] [place] [address] 68226- 2920 13 Nov, 2016 Anxiety, generalized F41.1 [place] [id number] [place] [address] 65772- 2892 12 Nov, 2016 Pernicious anemia D51.0 [place] [id number] [place] [address] 75503- 0111 Nov, Primary insomnia F51.01 [place] [id number] [place] [address] 68927- 6336 Nov, Encounter for well woman exam with routine gynecological exam Z01.419 ; Screening breast examination Z12.31 and Otalgia of left ear H92.02 [place] [id number] [place] [address] 58952- 3106 15 Oct, 2016 [facility] [id number] [place] [address] 11998 -1272 14 Oct, 2016 Insect bite (nonvenomous) of right upper arm, initial encounter S40.861A [place] [id number] [place] [address] 72122- 8959 Oct, Pernicious anemia D51.0 [place] [id number] [place] [address] 97473- 7197 07 Oct, 2016 Anxiety, generalized F41.1 and Pernicious anemia D51.0 [place] [id number] [place] [address] 34212- 6205 Oct, Encounter to establish care with new doctor Z76.89 ; Moderate episode of recurrent major depressive disorder F33.1 ; Empty sella syndrome E23.6 ; Seasonal allergic rhinitis, unspecified allergic rhinitis trigger J30.2 ; Essential hypertension I10 and Osteoarthritis of spine with radiculopathy, lumbosacral region M47.27 [facility] [id number] [place] [address] 02533- 9876 Aug, [facility] [address] 02151- 5945 Aug, [place] [address] 93470- 7921 Aug, Anxiety, generalized F41.1 [place] [address] 22034- 9033 Aug, [place] [address] 80084- 4466 Aug, Primary insomnia F51.01 ; Essential hypertension I10 ; Empty sella syndrome E23.6 and Chronic pain due to trauma G89.21 [place] [address] 65868- 0969 July, Primary insomnia F51.01 [facility] [id number] [place] [address] 83810 -2290 July, Seasonal allergic rhinitis, unspecified allergic rhinitis trigger J30.2 and Acute suppurative otitis media of right ear without spontaneous rupture of tympanic membrane, recurrence not specified H66.001 [facility] [id number] [place] [address] 84976 -8613 July, Acute suppurative otitis media of left ear without spontaneous rupture of tympanic membrane, recurrence not specified H66.002 [facility] [id number] [place] [address] 82303- 7297 July, [facility] [address] 40023- 7431 July, Anxiety, generalized F41.1 [facility] [id number] [place] [address] 74866- 5585 Jun, [facility] [id number] [place] [address] 62769- 2434 Jun, Primary insomnia F51.01 [facility] [id number] [place] [address] 44363- 4272 Jun, Empty sella syndrome E23.6 ; Primary insomnia F51.01 and Hypokalemia E87.6 [facility] [id number] [place] [address] 40412- 4476 Jun, [facility] [id number] [place] [address] 21446- 6845 Jun, [facility] [id number] [place] [address] 58986- 3463 Jun, Empty sella syndrome E23.6 [facility] [id number] [place] [address] 39319- 6827 Jun, Anxiety, generalized F41.1 [facility] [id number] [place] [address] 82642- 7793 Jun, [facility] [id number] [place] [address] 47589- 2757 Jun, Empty sella syndrome E23.6 [facility] [id number] [place] [address] 49592- 3199 May, [facility] [id number] [place] [address] 85608- 8787 May, [facility] [id number] [place] [address] 28000- 3249 May, Empty sella syndrome E23.6 [facility] [id number] [place] [address] 63022- 0263 May, [facility] [id number] [place] [address] 45456- 8981 24 May, 2016 [place] [address] 65675- 7335 May, Primary insomnia F51.01 [facility] [id number] [place] [address] 97768- 1257 22 May, 2016 [place] [address] 87306- 4545 20 May, 2016 Nausea R11.0 ; Other headache syndrome G44.89 and Malignant hypertension I10 [place] [address] 10823- 0471 07 May, 2016 Anxiety, generalized F41.1 [place] [id number] [place] [address] 43724- 4530 28 Apr, 2016 Major depressive disorder, recurrent episode, moderate F33.1 [place] [id number] [place] [address] 88620- 1415 28 Apr, 2016 Moderate episode of recurrent major depressive disorder F33.1 [place] [id number] [place] [address] 76959- 6668 27 Apr, 2016 Other chronic postprocedural pain G89.28 [place] [id number] [place] [address] 14852- 8376 15 Apr, 2016 Major depressive disorder, recurrent episode, moderate F33.1 [place] [id number] [place] [address] 73572- 4993 07 Apr, 2016 Anxiety, generalized F41.1 [place] [id number] [place] [address] 31315- 9507 03 Apr, 2016 [facility] [id number] [place] [address] 22097- 1108 Mar, Other chronic postprocedural pain G89.28 ; Status post craniotomy Z98.890 ; Encounter for drug screening Z02.83 and Hematuria R31.9 [place] [id number] [place] [address] 15253- 4564 Mar, Major depressive disorder, recurrent episode, moderate F33.1 [place] [id number] [place] [address] 96838- 0717 Mar, [place] [id number] [place] [address] 21339- 2771 Mar, Anxiety, generalized F41.[address] 46040- 8682 Mar, Anxiety, generalized F41.1 and Pernicious anemia D51.[address] 67837- 8002 Mar, 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 and Status post craniotomy Z98.[address] 58731- 6052 Mar, Primary insomnia F51.01 [place] [id number] [place] [address] 35108- 9488 Feb, [address] 22398- 1614 Feb, Encounter to establish care Z76.89 ; Status post craniotomy Z98.890 ; 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
--- OUTSIDE RECORDS SUMMARY | 2017-12-25 03:05 | XMS REPORT | Encounter Summary ---
Author Author [facility] Organization [facility] Address Unknown Phone Unavailable Care Team Providers Care [employer] Supervisor Name Role Phone Fidencio Fitzgerald MD PCP Reason for Visit * Reason Comments Pre-Visit Planning Dr. Pressley 11/26/17 Encounter Details Date Type Department Care Team Description 11/23/2017 Telephone [facility] Logan Mathew MD Pre- Visit Planning ( Phys[facility]Neurology [id number] [facility] [place] 11/26/17) [place] [address] [id number] [place] [address] Social History Tobacco Use Types Packs/Day Years Used Date Current Every Day Smoker 0.5 Smokeless Tobacco: Never Used Alcohol Use Drinks/Week oz/Week Comments No Sex Assigned at Date Recorded Not on file as of this encounter Miscellaneous Notes * Telephone Encounter - Betty Grace RN - 11/24/2017 11:16 AM CDT Patient contacted for pre-visit information gathering r/t referral for colloid cyst of third ventricle, empty sella syndrome. Patient reports she is still having chronic skull pain and her "bone flap is going wherever it wants to." Referring provider: 11/20/17 Dr. Contreras Easley - [facility] Neurology: Dr. Gonzalez 10/05/17 - [facility] (available in Care Everywhere) "Patient reports that she was diagnosed with migraine headache at the age of 45 and reports positive family history of migraine. Headaches are usually located in the right temporal region throbbing type, lasting for a few hours, severity 10 x 10, with frequency of 3-4 headaches per week. Associated with nausea and vomiting along with photophobia. She also reports of daily dull aching headache aggravated with lying flat and mildly relieved by sitting upright. She follows pain management clinic and has been taking Percocet, ibuprofen and Aleve daily. She also reports that she has tried Botox injections(and 2 injections so far and then discontinued), Topamax, amitriptyline, Maxalt and fentanyl patch. Reports that these medications did not help. She denies aura, visual disturbances, focal weakness, tingling or numbness, bowel or bladder disturbances. - Headache is quite frequent and severe. -We will start prophylaxis with Inderal 80 mg daily. Side effect discussed. - Use Imetrex for abortive therapy. - MRI of brain. - Patient advised to identify headache triggers and avoid them. - Discussed about lifestyle modifications including regular exercises, good sleep hygiene, regular meals and adequate hydration. -Discussed about analgesic rebound headaches and patient is advised to avoid excess use of OTC pain meds" Neurosurgery: Dr. Ashford 01/08/17 "Ms. Wiley is a 51 year old female who was diagnosed with third ventricular colloid cyst and hydrocephalus almost 2 years ago. She underwent surgery (craniotomy with transcallosal approach) for resection of the colloid cyst by Dr Cuevas at [facility]. Few months later, the patient reported that there was some problems with the plating system and screws, so the hardware was then removed. Clinically she continues to complain of headache. Her headaches are rather severe, daily headaches and occasionally associated with nausea and vomiting. She also reports that she had small amount of fluid drainage from the ear and was told that she possibly has CSF leak. I reviewed her most recent MRI and CT scan: there is no evidence of residual colloid cyst, and no hydrocephalus. 1- regarding the colloid cyst: her most recent MRI shows no evidence of residual cyst, and no hydrocephalus. 2- regarding drainage from the ear: based on her description, it is very unlikely that this is CSF leak. Patient reports that the amount is not enough to collect the fluid and test it for beta [address], this has to be evaluated by ENT (preferably neuro-top collar maker for evaluation and management ). 3- patient was told that her CT scan shows skull fracture while it does not. It just shows the expected craniotomy site. 4- patient was also told she has an empty sella. She does have a partial empty sella on MRI. This is a normal variant. No treatment needed. 5- regarding her symptoms, there is no indication for any surgical intervention. Her symptoms should be treated medically. Dr. Cuevas 06/03/16 [facility] (available in Care Everywhere) 1 year follow-up s/p removal of cranial hardware. She continues to report daily headaches without relief. She reports sharp stabbing pain behind her right eye, that she has followed up with ophthalmology; no acute findings appreciated. She does report having left ear drainage that she continues to notice intermittently since her last appointment. She reports decreased oral intake with concern for increased nausea and vomiting. This has contributed to her weight loss of approximately 20 pounds over the last 6 months. She has yet to establish care with an neurologist since moving to [facility]. She denies visual changes, progressive weakness, or recent trauma/falls Imaging: MRI Brain w/wo 10/14/17 - [facility] (patient will bring disc) IMPRESSION: Postsurgical changes and changes of chronic microvascular ischemia. No acute intracranial process is detected. Recent lab work: in referral paperwork Confirmed appointment for 11/26/17 at 1pm. Also confirmed that patient aware of clinic location. in this encounter Plan of Treatment Not on fileas of this encounter Visit Diagnoses Not on filein this encounter
--- OUTSIDE RECORDS SUMMARY | 2017-12-25 03:05 | XMS REPORT ---
Author Author OSBALDO CORRAL Organization [facility] Address [address] [place] [address] Care Team Providers Care Social Work Lecturer Name Role Phone OSBALDO CORRAL Unavailable PROBLEMS Type Condition ICD9-CM Code MDP10-NT Code Onset Dates Condition Status SNOMED Code Problem Anxiety, generalized F41.1 Active 46706641 Problem Essential hypertension I10 Active 79847025 Problem Major depressive disorder, recurrent episode, moderate F33.1 Active 466956389 Problem Abnormal laboratory test R89.9 Active 928673489 Problem Vitamin B12 deficiency anemia due to intrinsic factor deficiency D51.0 Active 95661520 Problem Seasonal allergic rhinitis, unspecified allergic rhinitis trigger J30.2 Active 298468604 Problem Chronic pain due to trauma G89.21 Active 207982693 Problem Migraine without status migrainosus, not intractable, unspecified migraine type G43.909 Active 54792852 Problem Adjustment disorder with mixed anxiety and depressed mood F43.23 Active 23166498 Problem Elevated serum creatinine R79.89 Active 745583394 Problem 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 Active 13505598 Problem Pernicious anemia D51.0 Active 25683192 Problem Hypokalemia E87.6 Active 06635741 Problem Other hyperlipidemia E78.4 Active 55010957 Problem Empty sella syndrome E23.6 Active 269551764 Problem Primary insomnia F51.01 Active 8632701 ALLERGIES Substance Reaction Event Type Date Status Iodine anaphylaxis Drug Allergy Oct, Active Dilaudid Hallucinations Drug Allergy Oct, Active Depakote CP Drug Allergy Oct, Active Bactrim DS swelling of joint Drug Allergy Oct, Active ENCOUNTERS Encounter Location Date Diagnosis [facility] [address] [facility] [id number] [address] Nov, Chronic pain due to trauma G89.21 and Anxiety, generalized F41.1 [facility] [address] [place] [id number] [place] [address] 86876- 5353 Oct, [facility] [id number] [place] [address] 40766- 1634 Oct, Abnormal laboratory test R89.9 [facility] [id number] [place] [address] 37428- 9706 Oct, [facility] [id number] [place] [address] 24873- 3630 Oct, [facility] [id number] [place] [address] 71969- 5555 Oct, Essential hypertension I10 [facility] [address] 24629- 5312 Oct, [facility] [id number] [place] [address] 39889- 7029 Oct, [facility] [id number] [place] [address] 06816- 8380 Oct, Essential hypertension I10 ; Chronic nausea R11.0 ; Hypokalemia E87.6 ; Abnormal thyroid stimulating hormone (TSH) level R79.89 and Recurrent acute suppurative otitis media without spontaneous rupture of left tympanic membrane H66.005 [facility] [id number] [place] [address] 99996- 7788 Oct, [facility] [id number] [place] [address] 68105- 2539 Oct, Chronic pain due to trauma G89.21 and Anxiety, generalized F41.1 [facility] [id number] [place] [address] 37363- 8188 Oct, [facility] [id number] [place] [address] 49425- 0424 Sep, Anxiety, generalized F41.1 and Chronic pain due to trauma G89.21 [facility] [id number] [place] [address] 60792- 0910 Sep, [place] [id number] [place] [address] 20172- 0832 Sep, Otalgia of left ear H92.02 and Low pressure hydrocephalus G91.2 [place] [address] [id number] [place] [address] 39289- 0875 Sep, [place] [address] 69260- 9566 Aug, Essential hypertension I10 ; 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 ; Empty sella syndrome E23.6 ; Pernicious anemia D51.0 ; Anxiety , generalized F41.1 ; Major depressive disorder, recurrent episode, moderate F33.1 ; Primary insomnia F51.01 ; Hypokalemia E87.6 and Chronic pain due to trauma G89.21 [place] [id number] [place] [address] 45829- 7329 Aug, [address] 91666- 0900 Aug, Anxiety, generalized F41.1 and Osteoarthritis of spine with radiculopathy, lumbosacral region M47.27 [place] [address] [id number] [place] [address] 80858- 4812 Aug, [place] [id number] [place] [address] 99623- 8028 Aug, Primary insomnia F51.01 [place] [address] 89141- 9790 July, Anxiety, generalized F41.1 and Osteoarthritis of spine with radiculopathy, lumbosacral region M47.27 [place] [address] 01602- 7863 July, Essential hypertension I10 [place] [address] [id number] [place] [address] 64330- 1656 July, Major depressive disorder, recurrent episode, moderate F33.1 [place] [address] [id number] [place] [address] 15863- 7287 July, Primary insomnia F51.01 [place] [address] [place] [phone]- 7189 Jun, Anxiety, generalized F41.1 and Osteoarthritis of spine with radiculopathy, lumbosacral region M47.27 [facility] [address] 84783 -5808 Jun, Acute frontal sinusitis, recurrence not specified J01.10 ; Sinus pressure J34.89 ; Post-nasal drip R09.82 and Sore throat J02.9 [place] [address] 27086- 4634 Jun, Primary insomnia F51.01 [place] [address] 45833- 8895 May, Anxiety, generalized F41.1 and Osteoarthritis of spine with radiculopathy, lumbosacral region M47.27 [place] [id number] [place] [address] 20511- 3292 May, Essential hypertension I10 ; 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 ; Empty sella syndrome E23.6 ; Pernicious anemia D51.0 ; Major depressive disorder, recurrent episode, moderate F33.1 ; Primary insomnia F51.01 ; Other hyperlipidemia E78.4 and Anxiety, generalized F41.1 [place] [address] [id number] [place] [address] 21720- 6812 May, Vitamin B12 deficiency anemia due to intrinsic factor deficiency D51.0 and Pernicious anemia D51.0 [facility] [id number] [place] [address] 49981 -0325 May, Migraine without status migrainosus, not intractable, unspecified migraine type G43.909 [place] [address] 17971- 2625 May, [id number] [place] [address] 65733- 9670 14 May, 2017 [place] [address] 42394- 1058 May, Osteoarthritis of spine with radiculopathy, lumbosacral region M47.27 and Primary insomnia F51.01 [place] [address] [id number] [place] [address] 35549- 8079 May, Osteoarthritis of spine with radiculopathy, lumbosacral region M47.27 and Anxiety, generalized F41.1 [place] [address] [id number] [place] [address] 83883- 6779 May, [place] [id number] [place] [address] 46777- 2079 28 Apr, 2017 [place] [address] [address] [id number] [place] [address] 20495- 1006 19 Apr, 2017 [place] [id number] [place] [address] 28122- 1049 13 Apr, 2017 Anxiety, generalized F41.1 ; Major depressive disorder, recurrent episode, moderate F33.1 ; Moderate episode of recurrent major depressive disorder F33.1 and Adjustment disorder with mixed anxiety and depressed mood F43.23 [place] [address] [id number] [place] [address] 74946- 6281 Apr, Major depressive disorder, recurrent episode, moderate F33.1 ; Anxiety, generalized F41.1 ; Essential hypertension I10 ; Primary insomnia F51.01 and Colloid cyst of third ventricle 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 [place] [id number] [place] [address] 82186- 3495 09 Apr, 2017 Other chest pain R07.89 ; Sinus bradycardia R00.1 ; Essential hypertension I10 and Other hyperlipidemia E78.4 [place] [address] [id number] [place] [address] 11326- 1490 08 Apr, 2017 Primary insomnia F51.01 [place] [address] [id number] [place] [address] 84006- 6323 Apr, [facility] [address] 44204- 9779 Apr, Anxiety, generalized F41.1 [place] [address] 68584- 7828 Apr, Osteoarthritis of spine with radiculopathy, lumbosacral region M47.27 [place] [address] 85901- 2168 Mar, Intractable migraine without aura and without status migrainosus G43.019 and Dyshidrotic hand dermatitis L30.1 [facility] [address] 54616 -0235 Mar, Skin infection L08.9 [place] [address] 40618- 5740 Mar, [facility] [address] 72633 -0973 Mar, Skin lesion L98.9 [place] [address] 09370- 5272 Mar, Primary insomnia F51.01 and Anxiety, generalized F41.1 [place] [address] 90867- 8781 Mar, Osteoarthritis of spine with radiculopathy, lumbosacral region M47.27 [place] [address] [id number] [place] [address] 05400- 9443 Feb, [place] [address] 48985- 8218 Feb, [place] [address] 80279- 4683 Feb, Hypokalemia E87.6 [place] [address] [place] [address]- 5841 Feb, Intractable migraine without aura and without status migrainosus G43.019 and Other chest pain R07.89 [place] [address] [id number] [place] [address] 53372- 7900 Feb, [place] [address] 50432- 7393 Feb, Osteoarthritis of spine with radiculopathy, lumbosacral region M47.27 [place] [address] 10645- 8206 Feb, Hypokalemia E87.6 [place] [address] 79626- 6256 Feb, [place] [address] 35796- 0263 Feb, Primary insomnia F51.01 and Anxiety, generalized F41.1 [facility] [place] [address] 63426 -9486 Feb, Acute suppurative otitis media of both ears without spontaneous rupture of tympanic membranes, recurrence not specified H66.003 [place] [address] [id number] [place] [address] 40662- 8876 Feb, [place] [address] [address] [id number] [place] [address] 96939- 3205 Jan, Osteoarthritis of spine with radiculopathy, lumbosacral region M47.27 [place] [address] [id number] [place] [address] 14049- 6537 Jan, Primary insomnia F51.01 and Anxiety, generalized F41.1 [place] [address] [id number] [place] [address] 79139- 9161 Jan, Chronic pain due to trauma G89.21 ; Left otitis media with effusion H65.92 and Otalgia of left ear H92.02 [facility] [id number] [place] [address] 17012 -3386 Jan, Bilateral otitis media with effusion H65.93 [place] [address] 76762- 2192 Dec, [place] [address] 69293- 4046 Dec, Primary insomnia F51.01 and Anxiety, generalized F41.1 [place] [address] 89874- 6125 Nov, [place] [address] 39347- 7612 Nov, [place] [address] 91809- 5504 Nov, Anxiety, generalized F41.1 [place] [address] 51389- 1509 Nov, Pernicious anemia D51.0 [place] [address] 24224- 7177 Nov, Primary insomnia F51.01 [place] [address] 32089- 6246 Nov, Encounter for well woman exam with routine gynecological exam Z01.419 ; Screening breast examination Z12.31 and Otalgia of left ear H92.02 [place] [address] 88117- 2298 Oct, [facility] [address] 57882 -8447 Oct, Insect bite (nonvenomous) of right upper arm, initial encounter S40.861A [place] [address] 90899- 0321 Oct, Pernicious anemia D51.0 [place] [address] 25764- 5025 Oct, Anxiety, generalized F41.1 and Pernicious anemia D51.0 [place] [address] [place] [id number] [place] [address] 23326- 8701 Oct, Encounter to establish care with new doctor Z76.89 ; Moderate episode of recurrent major depressive disorder F33.1 ; Empty sella syndrome E23.6 ; Seasonal allergic rhinitis, unspecified allergic rhinitis trigger J30.2 ; Essential hypertension I10 and Osteoarthritis of spine with radiculopathy, lumbosacral region M47.27 [place] [address] [place] [id number] [place] [address] 29802- 9721 Aug, [place] [address] 29357- 6470 Aug, [place] [address] 14659- 5732 13 Aug, 2016 Anxiety, generalized F41.1 [place] [address] 49672- 8027 08 Aug, 2016 [place] [address] 01823- 8569 07 Aug, 2016 Primary insomnia F51.01 ; Essential hypertension I10 ; Empty sella syndrome E23.6 and Chronic pain due to trauma G89.21 [place] [address] [id number] [place] [address] 73496- 7646 July, Primary insomnia F51.01 [facility] [id number] [place] [address] 65945 -7418 July, Seasonal allergic rhinitis, unspecified allergic rhinitis trigger J30.2 and Acute suppurative otitis media of right ear without spontaneous rupture of tympanic membrane, recurrence not specified H66.001 [facility] [id number] [place] [address] 17938 -3341 July, Acute suppurative otitis media of left ear without spontaneous rupture of tympanic membrane, recurrence not specified H66.002 [place] [address] [place] [id number] [place] [address] 12103- 7884 July, [facility] [id number] [place] [address] 58766- 9604 July, Anxiety, generalized F41.1 [facility] [id number] [place] [address] 54094- 9712 Jun, [facility] [address] 82682- 6049 Jun, Primary insomnia F51.01 [facility] [id number] [place] [address] 90646- 2257 Jun, Empty sella syndrome E23.6 ; Primary insomnia F51.01 and Hypokalemia E87.6 [facility] [id number] [place] [address] 40862- 4237 Jun, [facility] [id number] [place] [address] 33037- 4753 Jun, [facility] [id number] [place] [address] 92331- 1031 Jun, Empty sella syndrome E23.6 [facility] [id number] [place] [address] 87417- 5985 Jun, Anxiety, generalized F41.1 [facility] [id number] [place] [address] 81132- 6720 Jun, [facility] [id number] [place] [address] 42478- 2670 Jun, Empty sella syndrome E23.6 [facility] [id number] [place] [address] 13544- 2022 May, [facility] [id number] [place] [address] 35693- 4449 May, [facility] [id number] [place] [address] 71384- 0832 May, Empty sella syndrome E23.6 [facility] [id number] [place] [address] 29700- 6419 May, [facility] [id number] [place] [address] 48033- 9250 May, [facility] [address] 55191- 7119 May, Primary insomnia F51.01 [facility] [address] 73098- 2794 May, [facility] [address] 96622- 9703 May, Nausea R11.0 ; Other headache syndrome G44.89 and Malignant hypertension I10 [place] [address] [id number] [place] [address] 63467- 4786 May, Anxiety, generalized F41.1 [facility] [id number] [place] [address] 82377- 4066 28 Apr, 2016 Major depressive disorder, recurrent episode, moderate F33.1 [place] [address] [id number] [place] [address] 82931- 1191 28 Apr, 2016 Moderate episode of recurrent major depressive disorder F33.1 [facility] [id number] [place] [address] 13328- 4816 27 Apr, 2016 Other chronic postprocedural pain G89.28 [facility] [id number] [place] [address] 12385- 2575 15 Apr, 2016 Major depressive disorder, recurrent episode, moderate F33.1 [facility] [id number] [place] [address] 19676- 8718 07 Apr, 2016 Anxiety, generalized F41.1 [facility] [id number] [place] [address] 87832- 1997 03 Apr, 2016 [facility] [id number] [place] [address] 57122- 3057 Mar, Other chronic postprocedural pain G89.28 ; Status post craniotomy Z98.890 ; Encounter for drug screening Z02.83 and Hematuria R31.9 [place] [address] [id number] [place] [address] 96878- 0616 Mar, Major depressive disorder, recurrent episode, moderate F33.1 [place] [address] 41972- 4366 Mar, [place] [address] 24725- 5493 Mar, Anxiety, generalized F41.1 [place] [address] 26179- 1114 Mar, Anxiety, generalized F41.1 and Pernicious anemia D51.0 [place] [address] 03196- 8074 Mar, 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 and Status post craniotomy Z98.890 [place] [address] [id number] [place] [address] 47839- 8002 Mar, Primary insomnia F51.01 [place] [address] [id number] [place] [address] 54963- 6226 Feb, [place] [address] 62845- 0408 Feb, Encounter to establish care Z76.89 ; Status post craniotomy Z98.890 ; 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 ; Hypokalemia E87.6 ; Essential hypertension I10 ; Other hyperlipidemia E78.4 ; Pernicious anemia D51.0 ; Other depression F32.89 and Chronic nausea R11.0 IMMUNIZATIONS No Known Immunizations SOCIAL HISTORY Never Assessed REASON FOR VISIT VC-ER Hypotension follow up -- luba nielson, states she is now taking vit B2 PLAN OF CARE Activity Details Follow Up 3 Months, prn Reason:CHM/HTN VITAL SIGNS Height 67 in 2017-11-17 Weight 146.0 lbs 2017-11-17 Temperature 98.2 degrees Fahrenheit 2017-11-17 Heart Rate 70 bpm 2017-11-17 Respiratory Rate 18 2017-11-17 BMI 22.86 kg/m2 2017-11-17 Blood pressure systolic 157 mmHg 2017-11-17 Blood pressure diastolic 90 mmHg 2017-11-17 MEDICATIONS Medication Instructions Dosage Frequency Start Date End Date Duration Status BD Syringe/Needle 23GX1 For use with injectable B12 90 days Active Vitamin D 400 UNIT Orally Once a day 2 capsules 24h Active Ofloxacin 0.3 % Otic Once a day 10 drops into left ear 24h Oct, Oct, 7 day(s) Active Lisinopril 40 MG Orally Once a day 1 tablet 24h Active BD Syringe/Needle 23GX1 For use with injectable B12 Active Cyanocobalamin 1000 MCG/ML INJECT 1 ML INTRAMUSCULARLY ONCE MONTHLY 28 Active Temazepam 15 mg Orally Once a day 1 capsule at bedtime as needed 24h Sep 30 days Active Flonase 50 MCG/ACT Nasally Once a day 1 spray in each nostril 24h Jun, 30 day(s) Active Xanax 0.5 MG Orally Three times a day 1 tablet 8h 28 days Active Aleve 220 MG Orally every 12 hrs 1 tablet with food or milk as needed 12h Active Oxycodone-Acetaminophen 7.5-325 MG Orally 3 times a day 1 tablet as needed 8h Oct, 28 days Active Metoprolol Tartrate 25 MG Oral Twice a day 1/2 tablet 12h Aug, Active Amoxicillin 500 mg Orally every 12 hrs 1 capsule 12h Oct, 31 Oct, 2017 10 day(s) Active Pravastatin Sodium 80 MG TAKE ONE TABLET BY MOUTH ONCE DAILY Active Ondansetron 4 MG Orally 3 times a day 1 tablet on the tongue and allow to dissolve as needed 8h Oct, 14 days Active Duloxetine HCl 30 MG Orally Once a day in the AM 1 capsule 30 Active Chlorthalidone 25 MG Orally Once a day 1/2 tablet 24h Feb, 30 days Active Vitamin B-2 100 mg Orally twice a day 1 tablet 12h Active Folic Acid 400 MCG Orally Once a day 1 tablet 24h Active Tizanidine HCl 4 MG TAKE ONE TABLET BY MOUTH THREE TIMES DAILY NEEDED Active Potassium Chloride Jaycee ER 10 MEQ TAKE ONE TABLET BY MOUTH ONCE DAILY WITH FOOD 30 Active RESULTS No Results PROCEDURES Procedure Date Ordered Result Body Site LAB NOT BILLED BY [employer] Nov 17, 2017 [facility] VISIT ESTABLISHED PATIENT Nov 17, 2017 INSTRUCTIONS MEDICATIONS ADMINISTERED No Known Medications [...] Hospitalization History surgery only Hospitalization History [facility] 02/2017
--- OUTSIDE RECORDS SUMMARY | 2017-12-25 03:06 | XMS REPORT ---
Author Author OSBALDO CORRAL Organization [facility] Address [address] [place] [address] Care Team Providers Care Ash Worker Name Role Phone OSBALDO CORRAL Unavailable PROBLEMS Type Condition ICD9-CM Code ISC73-MC Code Onset Dates Condition Status SNOMED Code Problem Anxiety, generalized F41.1 Active 79495525 Problem Essential hypertension I10 Active 05270406 Problem Major depressive disorder, recurrent episode, moderate F33.1 Active 189808692 Problem Abnormal laboratory test R89.9 Active 306809083 Problem Vitamin B12 deficiency anemia due to intrinsic factor deficiency D51.0 Active 50614151 Problem Seasonal allergic rhinitis, unspecified allergic rhinitis trigger J30.2 Active 630238688 Problem Chronic pain due to trauma G89.21 Active 585145862 Problem Migraine without status migrainosus, not intractable, unspecified migraine type G43.909 Active 20839845 Problem Adjustment disorder with mixed anxiety and depressed mood F43.23 Active 25431499 Problem Elevated serum creatinine R79.89 Active 866557544 Problem 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 Active 60036451 Problem Pernicious anemia D51.0 Active 12318060 Problem Hypokalemia E87.6 Active 82310518 Problem Other hyperlipidemia E78.4 Active 49288130 Problem Empty sella syndrome E23.6 Active 584186136 Problem Primary insomnia F51.01 Active 1765113 ALLERGIES No Information ENCOUNTERS Encounter Location Date Diagnosis [facility] [address] [facility] [place] [id number] [address] Nov, Chronic pain due to trauma G89.21 and Anxiety, generalized F41.1 [facility] [address] [place] [id number] [address] Oct, [facility] [address] [id number] [address] Oct, Abnormal laboratory test R89.9 [facility] [id number] [place] [address] 69758- 9822 Oct, [facility] [id number] [place] [address] 08254- 9161 Oct, [facility] [id number] [place] [address] 05333- 1786 Oct, Essential hypertension I10 [facility] [id number] [place] [address] 26248- 6670 Oct, [facility] [id number] [place] [address] 03798- 5343 Oct, [facility] [id number] [place] [address] 80281- 2564 Oct, Essential hypertension I10 ; Chronic nausea R11.0 ; Hypokalemia E87.6 ; Abnormal thyroid stimulating hormone (TSH) level R79.89 and Recurrent acute suppurative otitis media without spontaneous rupture of left tympanic membrane H66.005 [facility] [id number] [place] [address] 42722- 3181 Oct, [facility] [id number] [place] [address] 21473- 6680 Oct, Chronic pain due to trauma G89.21 and Anxiety, generalized F41.1 [facility] [id number] [place] [address] 84263- 6957 Oct, [facility] [id number] [place] [address] 47471- 9054 Sep, Anxiety, generalized F41.1 and Chronic pain due to trauma G89.21 [facility] [id number] [place] [address] 91566- 5311 Sep, [facility] [id number] [place] [address] 28025- 8045 Sep, Otalgia of left ear H92.02 and Low pressure hydrocephalus G91.2 [place] [id number] [place] [address] 47875- 2244 Sep, [place] [address] 72044- 0571 Aug, Essential hypertension I10 ; 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 ; Empty sella syndrome E23.6 ; Pernicious anemia D51.0 ; Anxiety , generalized F41.1 ; Major depressive disorder, recurrent episode, moderate F33.1 ; Primary insomnia F51.01 ; Hypokalemia E87.6 and Chronic pain due to trauma G89.21 [place] [id number] [place] [address] 13335- 2735 Aug, [place] [address] 63330- 2223 Aug, Anxiety, generalized F41.1 and Osteoarthritis of spine with radiculopathy, lumbosacral region M47.27 [place] [id number] [place] [address] 66379- 3952 Aug, [place] [id number] [place] [address] 80033- 6720 Aug, Primary insomnia F51.01 [place] [id number] [place] [address] 16814- 4502 July, Anxiety, generalized F41.1 and Osteoarthritis of spine with radiculopathy, lumbosacral region M47.27 [place] [id number] [place] [address] 88517- 3656 July, Essential hypertension I10 [place] [id number] [place] [address] 22434- 2714 July, Major depressive disorder, recurrent episode, moderate F33.1 [place] [id number] [place] [address] 90289- 8324 July, Primary insomnia F51.01 [place] [id number] [place] [address] 07788- 1842 Jun, Anxiety, generalized F41.1 and Osteoarthritis of spine with radiculopathy, lumbosacral region M47.27 [facility] [address] [id number] [phone] Jun, Acute frontal sinusitis, recurrence not specified J01.10 ; Sinus pressure J34.89 ; Post-nasal drip R09.82 and Sore throat J02.9 [place] [address] 97920- 7334 Jun, Primary insomnia F51.01 [place] [address] 55338- 5368 May, Anxiety, generalized F41.1 and Osteoarthritis of spine with radiculopathy, lumbosacral region M47.27 [place] [address] 15081- 9942 May, Essential hypertension I10 ; Colloid cyst of third ventricle Q04.6 ; Empty sella syndrome E23.6 ; Pernicious anemia D51.0 ; Major depressive disorder, recurrent episode, moderate F33.1 ; Primary insomnia F51.01 ; Other hyperlipidemia E78.4 and Anxiety, generalized F41.1 [place] [id number] [place] [address] 10651- 3396 May, Vitamin B12 deficiency anemia due to intrinsic factor deficiency D51.0 and Pernicious anemia D51.0 [facility] [id number] [place] [address] 63156 -0178 May, Migraine without status migrainosus, not intractable, unspecified migraine type G43.909 [place] [address] 69394- 3775 May, [place] [address] 03352- 1898 May, [place] [address] [place] [id number]- 9947 May, Osteoarthritis of spine with radiculopathy, lumbosacral region M47.27 and Primary insomnia F51.01 [place] [address] 82155- 1377 May, Osteoarthritis of spine with radiculopathy, lumbosacral region M47.27 and Anxiety, generalized F41.1 [place] [address] 10320- 9745 May, [place] [address] 10173- 3385 Apr, [place] [address] 63930- 0998 Apr, [place] [address] 00204- 2859 Apr, Anxiety, generalized F41.1 ; Major depressive disorder, recurrent episode, moderate F33.1 ; Moderate episode of recurrent major depressive disorder F33.1 and Adjustment disorder with mixed anxiety and depressed mood F43.23 [place] [address] 60445- 5818 Apr, Major depressive disorder, recurrent episode, moderate F33.1 ; Anxiety, generalized F41.1 ; Essential hypertension I10 ; Primary insomnia F51.01 and Colloid cyst of third ventricle Q04.6 [place] [address] 85112- 3444 Apr, Other chest pain R07.89 ; Sinus bradycardia R00.1 ; Essential hypertension I10 and Other hyperlipidemia E78.4 [place] [address] 68071- 9657 Apr, Primary insomnia F51.01 [place] [address] 39805- 0311 Apr, [place] [address] 30985- 3079 Apr, Anxiety, generalized F41.1 [place] [id number] [place] [address] 41113- 2871 Apr, Osteoarthritis of spine with radiculopathy, lumbosacral region M47.27 [place] [id number] [place] [address] 40808- 1486 Mar, Intractable migraine without aura and without status migrainosus G43.019 and Dyshidrotic hand dermatitis L30.1 [facility] [place] [address] 08796 -6484 Mar, Skin infection L08.9 [place] [address] 64621- 2300 Mar, [facility] [place] [address] 66785 -5212 Mar, Skin lesion L98.9 [place] [address] 94320- 9667 Mar, Primary insomnia F51.01 and Anxiety, generalized F41.1 [place] [address] 19812- 7172 Mar, Osteoarthritis of spine with radiculopathy, lumbosacral region M47.27 [place] [id number] [place] [address] 53058- 9311 Feb, [place] [address] 05994- 4765 Feb, [place] [address] 30597- 2097 Feb, Hypokalemia E87.6 [place] [id number] [place] [address] 33274- 2227 Feb, Intractable migraine without aura and without status migrainosus G43.019 and Other chest pain R07.89 [place] [id number] [place] [address] 04602- 0113 14 Feb, 2017 [place] [address] 80064- 7061 Feb, Osteoarthritis of spine with radiculopathy, lumbosacral region M47.27 [place] [id number] [place] [address] 53107- 2317 Feb, Hypokalemia E87.6 [place] [id number] [place] [address] 42257- 6746 08 Feb, 2017 [place] [address] 35522- 1096 Feb, Primary insomnia F51.01 and Anxiety, generalized F41.1 [facility] [place] [id number] [place] [address] 07975 -4345 Feb, Acute suppurative otitis media of both ears without spontaneous rupture of tympanic membranes, recurrence not specified H66.003 [place] [id number] [place] [address] 82849- 5258 Feb, [place] [id number] [place] [address] 48114- 7665 Jan, Osteoarthritis of spine with radiculopathy, lumbosacral region M47.27 [place] [id number] [place] [address] 04094- 6826 Jan, Primary insomnia F51.01 and Anxiety, generalized F41.1 [place] [id number] [place] [address] 28267- 7453 02 Jan, 2017 Chronic pain due to trauma G89.21 ; Left otitis media with effusion H65.92 and Otalgia of left ear H92.02 [facility] [id number] [place] [address] 59259 -3799 Jan, Bilateral otitis media with effusion H65.93 [place] [id number] [place] [address] 79940- 9982 Dec, [facility] [id number] [place] [address] 73567- 7321 Dec, Primary insomnia F51.01 and Anxiety, generalized F41.1 [facility] [id number] [place] [address] 52830- 0546 25 Nov, 2016 [place] [address] 99111- 0023 15 Nov, 2016 [facility] [id number] [place] [address] 74434- 0940 13 Nov, 2016 Anxiety, generalized F41.1 [place] [id number] [place] [address] 66307- 6964 12 Nov, 2016 Pernicious anemia D51.0 [place] [id number] [place] [address] 13024- 1784 Nov, Primary insomnia F51.01 [place] [id number] [place] [address] 83113- 1556 Nov, Encounter for well woman exam with routine gynecological exam Z01.419 ; Screening breast examination Z12.31 and Otalgia of left ear H92.02 [place] [id number] [place] [address] 60486- 5299 15 Oct, 2016 [facility] [id number] [place] [address] 01185 -6237 14 Oct, 2016 Insect bite (nonvenomous) of right upper arm, initial encounter S40.861A [place] [id number] [place] [address] 25080- 2280 Oct, Pernicious anemia D51.0 [place] [id number] [place] [address] 66701- 7613 07 Oct, 2016 Anxiety, generalized F41.1 and Pernicious anemia D51.0 [place] [id number] [place] [address] 01988- 1912 Oct, Encounter to establish care with new doctor Z76.89 ; Moderate episode of recurrent major depressive disorder F33.1 ; Empty sella syndrome E23.6 ; Seasonal allergic rhinitis, unspecified allergic rhinitis trigger J30.2 ; Essential hypertension I10 and Osteoarthritis of spine with radiculopathy, lumbosacral region M47.27 [facility] [id number] [place] [address] 32900- 0129 Aug, [facility] [address] 77662- 5348 Aug, [place] [address] 06153- 7765 Aug, Anxiety, generalized F41.1 [place] [address] 21167- 1437 Aug, [place] [address] 93601- 6232 Aug, Primary insomnia F51.01 ; Essential hypertension I10 ; Empty sella syndrome E23.6 and Chronic pain due to trauma G89.21 [place] [address] 56861- 7083 July, Primary insomnia F51.01 [facility] [id number] [place] [address] 25797 -1367 July, Seasonal allergic rhinitis, unspecified allergic rhinitis trigger J30.2 and Acute suppurative otitis media of right ear without spontaneous rupture of tympanic membrane, recurrence not specified H66.001 [facility] [id number] [place] [address] 10312 -8181 July, Acute suppurative otitis media of left ear without spontaneous rupture of tympanic membrane, recurrence not specified H66.002 [facility] [id number] [place] [address] 85103- 8856 July, [facility] [address] 55759- 5793 July, Anxiety, generalized F41.1 [facility] [id number] [place] [address] 26333- 0753 Jun, [facility] [id number] [place] [address] 04862- 4975 Jun, Primary insomnia F51.01 [facility] [id number] [place] [address] 02048- 6169 Jun, Empty sella syndrome E23.6 ; Primary insomnia F51.01 and Hypokalemia E87.6 [facility] [id number] [place] [address] 50559- 7929 Jun, [facility] [id number] [place] [address] 55728- 5837 Jun, [facility] [id number] [place] [address] 87716- 8019 Jun, Empty sella syndrome E23.6 [facility] [id number] [place] [address] 47113- 1541 Jun, Anxiety, generalized F41.1 [facility] [id number] [place] [address] 17011- 7588 Jun, [facility] [id number] [place] [address] 27906- 0386 Jun, Empty sella syndrome E23.6 [facility] [id number] [place] [address] 93785- 3229 May, [facility] [id number] [place] [address] 26339- 4842 May, [facility] [id number] [place] [address] 74927- 0728 May, Empty sella syndrome E23.6 [facility] [id number] [place] [address] 53693- 7865 May, [facility] [id number] [place] [address] 59635- 3518 24 May, 2016 [place] [address] 63136- 5548 May, Primary insomnia F51.01 [facility] [id number] [place] [address] 15560- 2274 22 May, 2016 [place] [address] 42302- 2838 20 May, 2016 Nausea R11.0 ; Other headache syndrome G44.89 and Malignant hypertension I10 [place] [address] 35963- 4152 07 May, 2016 Anxiety, generalized F41.1 [place] [address] [id number] [place] [address] 57930- 1550 28 Apr, 2016 Major depressive disorder, recurrent episode, moderate F33.1 [place] [address] [id number] [place] [address] 47587- 4858 28 Apr, 2016 Moderate episode of recurrent major depressive disorder F33.1 [place] [address] [id number] [place] [address] 86097- 2640 27 Apr, 2016 Other chronic postprocedural pain G89.28 [place] [address] [id number] [place] [address] 09407- 1866 15 Apr, 2016 Major depressive disorder, recurrent episode, moderate F33.1 [place] [address] [address] [id number] [place] [address] 98364- 2627 07 Apr, 2016 Anxiety, generalized F41.1 [place] [address] [id number] [place] [address] 43011- 4737 03 Apr, 2016 [facility] [id number] [place] [address] 75926- 3941 Mar, Other chronic postprocedural pain G89.28 ; Status post craniotomy Z98.890 ; Encounter for drug screening Z02.83 and Hematuria R31.9 [place] [id number] [place] [address] 10002- 4911 Mar, Major depressive disorder, recurrent episode, moderate F33.1 [place] [id number] [place] [address] 19879- 8274 Mar, [place] [id number] [place] [address] 89445- 3492 Mar, Anxiety, generalized F41.[address] 12431- 2416 Mar, Anxiety, generalized F41.1 and Pernicious anemia D51.[address] 72005- 2904 Mar, Colloid cyst of third ventricle 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 and Status post craniotomy Z98.[address] 60076- 7351 Mar, Primary insomnia F51.01 [place] [id number] [place] [address] 33311- 0804 Feb, [address] 96502- 3470 Feb, Encounter to establish care Z76.89 ; Status post craniotomy Z98.890 ; Colloid cyst of third ventricle 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 1 tablet Oct, Active RESULTS No Results PROCEDURES No Known [...]
--- OUTSIDE RECORDS SUMMARY | 2017-12-25 03:06 | XMS REPORT ---
Author Author OSBALDO CORRAL Organization [facility] Address [address] [place] [address] Care Team Providers Care Tapper Helper Name Role Phone OSBALDO CORRAL Unavailable PROBLEMS Type Condition ICD9-CM Code LDN77-TO Code Onset Dates Condition Status SNOMED Code Problem Anxiety, generalized F41.1 Active 07524927 Problem Essential hypertension I10 Active 81176388 Problem Major depressive disorder, recurrent episode, moderate F33.1 Active 870157377 Problem Abnormal laboratory test R89.9 Active 081442577 Problem Vitamin B12 deficiency anemia due to intrinsic factor deficiency D51.0 Active 02470787 Problem Seasonal allergic rhinitis, unspecified allergic rhinitis trigger J30.2 Active 188061474 Problem Chronic pain due to trauma G89.21 Active 281061280 Problem Migraine without status migrainosus, not intractable, unspecified migraine type G43.909 Active 15170621 Problem Adjustment disorder with mixed anxiety and depressed mood F43.23 Active 40226726 Problem Elevated serum creatinine R79.89 Active 706994585 Problem Colloid cyst of third ventricle Q04.6 Active 29378452 Problem Pernicious anemia D51.0 Active 58826296 Problem Hypokalemia E87.6 Active 51573145 Problem Other hyperlipidemia E78.4 Active 30567582 Problem Empty sella syndrome E23.6 Active 076677592 Problem Primary insomnia F51.01 Active 6126764 ALLERGIES No Information ENCOUNTERS Encounter Location Date Diagnosis [facility] [address] [facility] [id number] [address] Nov, Chronic pain due to trauma G89.21 and Anxiety, generalized F41.1 [facility] [address] [id number] [address] Oct, [facility] [address] [id number] [address] Oct, Abnormal laboratory test R89.9 [facility] [id number] [place] [address] 85116- 1568 Oct, [facility] [id number] [place] [address] 99807- 2005 Oct, [facility] [id number] [place] [address] 79044- 7168 Oct, Essential hypertension I10 [facility] [id number] [place] [address] 44952- 5633 Oct, [facility] [id number] [place] [address] 71788- 4879 Oct, [facility] [id number] [place] [address] 78486- 5184 Oct, Essential hypertension I10 ; Chronic nausea R11.0 ; Hypokalemia E87.6 ; Abnormal thyroid stimulating hormone (TSH) level R79.89 and Recurrent acute suppurative otitis media without spontaneous rupture of left tympanic membrane H66.005 [facility] [id number] [place] [address] 64395- 9187 Oct, [facility] [id number] [place] [address] 01207- 8179 Oct, Chronic pain due to trauma G89.21 and Anxiety, generalized F41.1 [facility] [id number] [place] [address] 32869- 8473 Oct, [facility] [id number] [place] [address] 13825- 8077 Sep, Anxiety, generalized F41.1 and Chronic pain due to trauma G89.21 [facility] [id number] [place] [address] 46186- 0405 Sep, [facility] [id number] [place] [address] 94641- 3264 Sep, Otalgia of left ear H92.02 and Low pressure hydrocephalus G91.2 [place] [id number] [place] [address] 60063- 6093 Sep, [place] [address] 63216- 8135 Aug, Essential hypertension I10 ; Colloid cyst of third ventricle Q04.6 ; Empty sella syndrome E23.6 ; Pernicious anemia D51.0 ; Anxiety , generalized F41.1 ; Major depressive disorder, recurrent episode, moderate F33.1 ; Primary insomnia F51.01 ; Hypokalemia E87.6 and Chronic pain due to trauma G89.21 [place] [id number] [place] [address] 21299- 4996 Aug, [place] [address] 03874- 3273 Aug, Anxiety, generalized F41.1 and Osteoarthritis of spine with radiculopathy, lumbosacral region M47.27 [place] [id number] [place] [address] 97839- 4519 Aug, [place] [id number] [place] [address] 39343- 9808 Aug, Primary insomnia F51.01 [place] [id number] [place] [address] 56406- 0947 July, Anxiety, generalized F41.1 and Osteoarthritis of spine with radiculopathy, lumbosacral region M47.27 [place] [id number] [place] [address] 98694- 6737 July, Essential hypertension I10 [place] [id number] [place] [address] 36254- 0377 July, Major depressive disorder, recurrent episode, moderate F33.1 [place] [id number] [place] [address] 28951- 1846 July, Primary insomnia F51.01 [place] [id number] [place] [address] 36471- 4227 Jun, Anxiety, generalized F41.1 and Osteoarthritis of spine with radiculopathy, lumbosacral region M47.27 [facility] WALK IN [facility] [address] [id number] Jun, Acute frontal sinusitis, recurrence not specified J01.10 ; Sinus pressure J34.89 ; Post-nasal drip R09.82 and Sore throat J02.9 [place] [address] 74269- 6023 Jun, Primary insomnia F51.01 [place] [address] 16043- 0870 May, Anxiety, generalized F41.1 and Osteoarthritis of spine with radiculopathy, lumbosacral region M47.27 [place] [address] 31877- 7486 May, Essential hypertension I10 ; Colloid cyst of third ventricle Q04.6 ; Empty sella syndrome E23.6 ; Pernicious anemia D51.0 ; Major depressive disorder, recurrent episode, moderate F33.1 ; Primary insomnia F51.01 ; Other hyperlipidemia E78.4 and Anxiety, generalized F41.1 [place] [id number] [place] [address] 93295- 0354 May, Vitamin B12 deficiency anemia due to intrinsic factor deficiency D51.0 and Pernicious anemia D51.0 [facility] [id number] [place] [address] 66742 -7253 May, Migraine without status migrainosus, not intractable, unspecified migraine type G43.909 [place] [address] 95813- 4966 May, [place] [address] 04269- 5597 May, [place] [address] [id number]- 3760 May, Osteoarthritis of spine with radiculopathy, lumbosacral region M47.27 and Primary insomnia F51.01 [place] [address] 19678- 0842 May, Osteoarthritis of spine with radiculopathy, lumbosacral region M47.27 and Anxiety, generalized F41.1 [place] [address] 91816- 7743 May, [place] [address] 14940- 9545 Apr, [place] [address] 93650- 6955 Apr, [place] [address] 50009- 9014 Apr, Anxiety, generalized F41.1 ; Major depressive disorder, recurrent episode, moderate F33.1 ; Moderate episode of recurrent major depressive disorder F33.1 and Adjustment disorder with mixed anxiety and depressed mood F43.23 [place] [address] 02151- 8241 Apr, Major depressive disorder, recurrent episode, moderate F33.1 ; Anxiety, generalized F41.1 ; Essential hypertension I10 ; Primary insomnia F51.01 and Colloid cyst of third ventricle Q04.6 [place] [address] 96502- 2216 Apr, Other chest pain R07.89 ; Sinus bradycardia R00.1 ; Essential hypertension I10 and Other hyperlipidemia E78.4 [place] [address] 79253- 4484 Apr, Primary insomnia F51.01 [place] [address] 52825- 9031 Apr, [place] [address] 49520- 0261 Apr, Anxiety, generalized F41.1 [place] [id number] [place] [address] 20113- 0656 Apr, Osteoarthritis of spine with radiculopathy, lumbosacral region M47.27 [place] [id number] [place] [address] 78986- 6647 Mar, Intractable migraine without aura and without status migrainosus G43.019 and Dyshidrotic hand dermatitis L30.1 [facility] WALK IN [place] [address] 70409 -2098 Mar, Skin infection L08.9 [place] [address] 15931- 7610 Mar, [facility] WALK IN [place] [address] 52942 -9074 Mar, Skin lesion L98.9 [place] [address] 42867- 5288 Mar, Primary insomnia F51.01 and Anxiety, generalized F41.1 [place] [address] 21774- 2374 Mar, Osteoarthritis of spine with radiculopathy, lumbosacral region M47.27 [place] [id number] [place] [address] 40337- 0843 Feb, [place] [address] 71331- 8559 Feb, [place] [address] 14741- 6464 Feb, Hypokalemia E87.6 [place] [id number] [place] [address] 68419- 7883 Feb, Intractable migraine without aura and without status migrainosus G43.019 and Other chest pain R07.89 [place] [id number] [place] [address] 26022- 5692 14 Feb, 2017 [place] [address] 91414- 6601 Feb, Osteoarthritis of spine with radiculopathy, lumbosacral region M47.27 [place] [id number] [place] [address] 90300- 9428 Feb, Hypokalemia E87.6 [place] [id number] [place] [address] 62145- 7610 08 Feb, 2017 [place] [address] 03870- 0345 Feb, Primary insomnia F51.01 and Anxiety, generalized F41.1 [facility] WALK [place] [id number] [place] [address] 85525 -3178 Feb, Acute suppurative otitis media of both ears without spontaneous rupture of tympanic membranes, recurrence not specified H66.003 [place] [id number] [place] [address] 58222- 9246 Feb, [place] [id number] [place] [address] 36494- 9589 Jan, Osteoarthritis of spine with radiculopathy, lumbosacral region M47.27 [place] [id number] [place] [address] 36061- 3478 Jan, Primary insomnia F51.01 and Anxiety, generalized F41.1 [place] [id number] [place] [address] 48101- 6879 02 Jan, 2017 Chronic pain due to trauma G89.21 ; Left otitis media with effusion H65.92 and Otalgia of left ear H92.02 [facility] [id number] [place] [address] 93952 -4291 Jan, Bilateral otitis media with effusion H65.93 [place] [id number] [place] [address] 45727- 4048 Dec, [facility] [id number] [place] [address] 20570- 8744 Dec, Primary insomnia F51.01 and Anxiety, generalized F41.1 [facility] [id number] [place] [address] 08560- 2026 25 Nov, 2016 [place] [address] 21617- 8843 15 Nov, 2016 [facility] [id number] [place] [address] 62690- 0765 13 Nov, 2016 Anxiety, generalized F41.1 [place] [id number] [place] [address] 49518- 3183 12 Nov, 2016 Pernicious anemia D51.0 [place] [id number] [place] [address] 45049- 3385 Nov, Primary insomnia F51.01 [place] [id number] [place] [address] 15457- 2768 Nov, Encounter for well woman exam with routine gynecological exam Z01.419 ; Screening breast examination Z12.31 and Otalgia of left ear H92.02 [place] [id number] [place] [address] 78653- 4165 15 Oct, 2016 [facility] [id number] [place] [address] 29288 -4392 14 Oct, 2016 Insect bite (nonvenomous) of right upper arm, initial encounter S40.861A [place] [id number] [place] [address] 65184- 0113 Oct, Pernicious anemia D51.0 [place] [id number] [place] [address] 13458- 6403 07 Oct, 2016 Anxiety, generalized F41.1 and Pernicious anemia D51.0 [place] [id number] [place] [address] 23267- 4178 Oct, Encounter to establish care with new doctor Z76.89 ; Moderate episode of recurrent major depressive disorder F33.1 ; Empty sella syndrome E23.6 ; Seasonal allergic rhinitis, unspecified allergic rhinitis trigger J30.2 ; Essential hypertension I10 and Osteoarthritis of spine with radiculopathy, lumbosacral region M47.27 [facility] [id number] [place] [address] 20092- 3295 Aug, [facility] [address] 68138- 4780 Aug, [place] [address] 87963- 2900 Aug, Anxiety, generalized F41.1 [place] [address] 45440- 4300 Aug, [place] [address] 81533- 9786 Aug, Primary insomnia F51.01 ; Essential hypertension I10 ; Empty sella syndrome E23.6 and Chronic pain due to trauma G89.21 [place] [address] 01645- 6979 July, Primary insomnia F51.01 [facility] [id number] [place] [address] 51725 -1154 July, Seasonal allergic rhinitis, unspecified allergic rhinitis trigger J30.2 and Acute suppurative otitis media of right ear without spontaneous rupture of tympanic membrane, recurrence not specified H66.001 [facility] [id number] [place] [address] 17854 -9814 July, Acute suppurative otitis media of left ear without spontaneous rupture of tympanic membrane, recurrence not specified H66.002 [facility] [id number] [place] [address] 66521- 9040 July, [facility] [address] 82906- 7670 July, Anxiety, generalized F41.1 [facility] [id number] [place] [address] 86375- 8745 Jun, [facility] [id number] [place] [address] 30144- 3238 Jun, Primary insomnia F51.01 [facility] [id number] [place] [address] 39158- 9419 Jun, Empty sella syndrome E23.6 ; Primary insomnia F51.01 and Hypokalemia E87.6 [facility] [id number] [place] [address] 38052- 3310 Jun, [facility] [id number] [place] [address] 06914- 0703 Jun, [facility] [id number] [place] [address] 04944- 4494 Jun, Empty sella syndrome E23.6 [facility] [id number] [place] [address] 98576- 8471 Jun, Anxiety, generalized F41.1 [facility] [id number] [place] [address] 32131- 2182 Jun, [facility] [id number] [place] [address] 22036- 3011 Jun, Empty sella syndrome E23.6 [facility] [id number] [place] [address] 12625- 0588 May, [facility] [id number] [place] [address] 82898- 5334 May, [facility] [id number] [place] [address] 98827- 9813 May, Empty sella syndrome E23.6 [facility] [id number] [place] [address] 64418- 3252 May, [facility] [id number] [place] [address] 57986- 3967 24 May, 2016 [place] [address] 72106- 6537 May, Primary insomnia F51.01 [facility] [id number] [place] [address] 99158- 2470 22 May, 2016 [place] [address] 94869- 0847 20 May, 2016 Nausea R11.0 ; Other headache syndrome G44.89 and Malignant hypertension I10 [place] [address] 64603- 9074 07 May, 2016 Anxiety, generalized F41.1 [place] [id number] [place] [address] 47778- 7776 28 Apr, 2016 Major depressive disorder, recurrent episode, moderate F33.1 [place] [id number] [place] [address] 27920- 9802 28 Apr, 2016 Moderate episode of recurrent major depressive disorder F33.1 [place] [id number] [place] [address] 78785- 7933 27 Apr, 2016 Other chronic postprocedural pain G89.28 [place] [id number] [place] [address] 27526- 0534 15 Apr, 2016 Major depressive disorder, recurrent episode, moderate F33.1 [place] [id number] [place] [address] 02217- 1138 07 Apr, 2016 Anxiety, generalized F41.1 [place] [id number] [place] [address] 92060- 3023 03 Apr, 2016 [facility] [id number] [place] [address] 85032- 0724 Mar, Other chronic postprocedural pain G89.28 ; Status post craniotomy Z98.890 ; Encounter for drug screening Z02.83 and Hematuria R31.9 [place] [id number] [place] [address] 61395- 9737 Mar, Major depressive disorder, recurrent episode, moderate F33.1 [place] [id number] [place] [address] 70948- 5127 Mar, [place] [id number] [place] [address] 56460- 7453 Mar, Anxiety, generalized F41.[address] 28264- 5614 Mar, Anxiety, generalized F41.1 and Pernicious anemia D51.[address] 18559- 8786 Mar, Colloid cyst of third ventricle 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
--- OUTSIDE RECORDS SUMMARY | 2017-12-25 03:07 | XMS REPORT ---
Author Author OSBALDO CORRAL Organization [facility] Address [address] [place] [address] Care Team Providers Care Handtools Repairer Name Role Phone OSBALDO CORRAL Unavailable PROBLEMS Type Condition ICD9-CM Code GPY31-HE Code Onset Dates Condition Status SNOMED Code Problem Anxiety, generalized F41.1 Active 90145657 Problem Essential hypertension I10 Active 64334951 Problem Major depressive disorder, recurrent episode, moderate F33.1 Active 563329411 Problem Abnormal laboratory test R89.9 Active 386272452 Problem Vitamin B12 deficiency anemia due to intrinsic factor deficiency D51.0 Active 98362542 Problem Seasonal allergic rhinitis, unspecified allergic rhinitis trigger J30.2 Active 025250527 Problem Chronic pain due to trauma G89.21 Active 800770710 Problem Migraine without status migrainosus, not intractable, unspecified migraine type G43.909 Active 20415627 Problem Adjustment disorder with mixed anxiety and depressed mood F43.23 Active 57274616 Problem Elevated serum creatinine R79.89 Active 082704072 Problem 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 Active 53508493 Problem Pernicious anemia D51.0 Active 93028724 Problem Hypokalemia E87.6 Active 28727467 Problem Other hyperlipidemia E78.4 Active 39132441 Problem Empty sella syndrome E23.6 Active 166898952 Problem Primary insomnia F51.01 Active 0948923 ALLERGIES No Information ENCOUNTERS Encounter Location Date Diagnosis [facility] [address] [facility] [id number] [address] Nov, Chronic pain due to trauma G89.21 and Anxiety, generalized F41.1 [facility] [address] [id number] [address] Oct, [facility] [address] [id number] [address] Oct, Abnormal laboratory test R89.9 [facility] [id number] [place] [address] 44485- 3506 Oct, [facility] [id number] [place] [address] 32748- 6662 Oct, [facility] [id number] [place] [address] 68723- 7623 Oct, Essential hypertension I10 [facility] [id number] [place] [address] 15056- 5059 Oct, [facility] [id number] [place] [address] 73905- 4391 Oct, [facility] [id number] [place] [address] 34378- 2605 Oct, Essential hypertension I10 ; Chronic nausea R11.0 ; Hypokalemia E87.6 ; Abnormal thyroid stimulating hormone (TSH) level R79.89 and Recurrent acute suppurative otitis media without spontaneous rupture of left tympanic membrane H66.005 [facility] [id number] [place] [address] 29316- 6153 Oct, [facility] [id number] [place] [address] 98510- 2890 Oct, Chronic pain due to trauma G89.21 and Anxiety, generalized F41.1 [facility] [id number] [place] [address] 98808- 3745 Oct, [facility] [id number] [place] [address] 19917- 8357 Sep, Anxiety, generalized F41.1 and Chronic pain due to trauma G89.21 [facility] [id number] [place] [address] 90038- 7579 Sep, [facility] [id number] [place] [address] 91308- 0416 Sep, Otalgia of left ear H92.02 and Low pressure hydrocephalus G91.2 [place] [id number] [place] [address] 23432- 1344 Sep, [place] [address] 74164- 5662 Aug, Essential hypertension I10 ; 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 ; Empty sella syndrome E23.6 ; Pernicious anemia D51.0 ; Anxiety , generalized F41.1 ; Major depressive disorder, recurrent episode, moderate F33.1 ; Primary insomnia F51.01 ; Hypokalemia E87.6 and Chronic pain due to trauma G89.21 [place] [id number] [place] [address] 21778- 4416 Aug, [place] [address] 87809- 1536 Aug, Anxiety, generalized F41.1 and Osteoarthritis of spine with radiculopathy, lumbosacral region M47.27 [place] [id number] [place] [address] 81776- 2812 Aug, [place] [id number] [place] [address] 44091- 0231 Aug, Primary insomnia F51.01 [place] [id number] [place] [address] 34466- 5464 July, Anxiety, generalized F41.1 and Osteoarthritis of spine with radiculopathy, lumbosacral region M47.27 [place] [id number] [place] [address] 57055- 5758 July, Essential hypertension I10 [place] [id number] [place] [address] 26415- 2229 July, Major depressive disorder, recurrent episode, moderate F33.1 [place] [id number] [place] [address] 62631- 4739 July, Primary insomnia F51.01 [place] [id number] [place] [address] 12685- 1098 Jun, Anxiety, generalized F41.1 and Osteoarthritis of spine with radiculopathy, lumbosacral region M47.27 [facility] [address] [id number] Jun, Acute frontal sinusitis, recurrence not specified J01.10 ; Sinus pressure J34.89 ; Post-nasal drip R09.82 and Sore throat J02.9 [place] [address] 93648- 6415 Jun, Primary insomnia F51.01 [place] [address] 30388- 9050 May, Anxiety, generalized F41.1 and Osteoarthritis of spine with radiculopathy, lumbosacral region M47.27 [place] [address] 13047- 8110 May, Essential hypertension I10 ; Colloid cyst of third ventricle 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.6 ; Empty sella syndrome E23.6 ; Pernicious anemia D51.0 ; Major depressive disorder, recurrent episode, moderate F33.1 ; Primary insomnia F51.01 ; Other hyperlipidemia E78.4 and Anxiety, generalized F41.1 [place] [id number] [place] [address] 37896- 5378 May, Vitamin B12 deficiency anemia due to intrinsic factor deficiency D51.0 and Pernicious anemia D51.0 [facility] [id number] [place] [address] 56844 -8679 May, Migraine without status migrainosus, not intractable, unspecified migraine type G43.909 [place] [address] 58778- 8648 May, [place] [address] 14525- 4880 May, [place] [address] [place] [id number]- 1318 May, Osteoarthritis of spine with radiculopathy, lumbosacral region M47.27 and Primary insomnia F51.01 [place] [address] 63401- 1085 May, Osteoarthritis of spine with radiculopathy, lumbosacral region M47.27 and Anxiety, generalized F41.1 [place] [address] 91221- 7763 May, [place] [address] 85355- 5067 Apr, [place] [address] 49606- 5988 Apr, [place] [address] 91834- 5715 Apr, Anxiety, generalized F41.1 ; Major depressive disorder, recurrent episode, moderate F33.1 ; Moderate episode of recurrent major depressive disorder F33.1 and Adjustment disorder with mixed anxiety and depressed mood F43.23 [place] [address] 62258- 5163 Apr, Major depressive disorder, recurrent episode, moderate F33.1 ; Anxiety, generalized F41.1 ; Essential hypertension I10 ; Primary insomnia F51.01 and Colloid cyst of third ventricle Q04.6 [place] [address] 21000- 2326 Apr, Other chest pain R07.89 ; Sinus bradycardia R00.1 ; Essential hypertension I10 and Other hyperlipidemia E78.4 [place] [address] 35287- 7114 Apr, Primary insomnia F51.01 [place] [address] 37268- 7547 Apr, [place] [address] 09240- 7710 Apr, Anxiety, generalized F41.1 [place] [id number] [place] [address] 91377- 1357 Apr, Osteoarthritis of spine with radiculopathy, lumbosacral region M47.27 [place] [id number] [place] [address] 68518- 5263 Mar, Intractable migraine without aura and without status migrainosus G43.019 and Dyshidrotic hand dermatitis L30.1 [facility] WALK IN [place] [address] 64164 -1328 Mar, Skin infection L08.9 [place] [address] 77124- 3877 Mar, [facility] WALK IN [place] [address] 41351 -3550 Mar, Skin lesion L98.9 [place] [address] 74076- 1489 Mar, Primary insomnia F51.01 and Anxiety, generalized F41.1 [place] [address] 19898- 0975 Mar, Osteoarthritis of spine with radiculopathy, lumbosacral region M47.27 [place] [id number] [place] [address] 62393- 8779 Feb, [place] [address] 95465- 9818 Feb, [place] [address] 27233- 6671 Feb, Hypokalemia E87.6 [place] [id number] [place] [address] 34897- 0028 Feb, Intractable migraine without aura and without status migrainosus G43.019 and Other chest pain R07.89 [place] [id number] [place] [address] 19259- 5871 14 Feb, 2017 [place] [address] 24540- 9591 Feb, Osteoarthritis of spine with radiculopathy, lumbosacral region M47.27 [place] [id number] [place] [address] 85513- 3725 Feb, Hypokalemia E87.6 [place] [id number] [place] [address] 02218- 3107 08 Feb, 2017 [place] [address] 81558- 1784 Feb, Primary insomnia F51.01 and Anxiety, generalized F41.1 [facility] IN [place] [id number] [place] [address] 54268 -2041 Feb, Acute suppurative otitis media of both ears without spontaneous rupture of tympanic membranes, recurrence not specified H66.003 [place] [id number] [place] [address] 73427- 1270 Feb, [place] [id number] [place] [address] 42517- 3030 Jan, Osteoarthritis of spine with radiculopathy, lumbosacral region M47.27 [place] [id number] [place] [address] 21697- 3250 Jan, Primary insomnia F51.01 and Anxiety, generalized F41.1 [place] [id number] [place] [address] 34616- 4946 02 Jan, 2017 Chronic pain due to trauma G89.21 ; Left otitis media with effusion H65.92 and Otalgia of left ear H92.02 [facility] [id number] [place] [address] 97077 -6133 Jan, Bilateral otitis media with effusion H65.93 [place] [id number] [place] [address] 34663- 3995 Dec, [facility] [id number] [place] [address] 58668- 7546 Dec, Primary insomnia F51.01 and Anxiety, generalized F41.1 [facility] [id number] [place] [address] 24718- 8091 25 Nov, 2016 [place] [address] 08653- 4699 15 Nov, 2016 [facility] [id number] [place] [address] 51900- 0273 13 Nov, 2016 Anxiety, generalized F41.1 [place] [id number] [place] [address] 84734- 9704 12 Nov, 2016 Pernicious anemia D51.0 [place] [id number] [place] [address] 36198- 1647 Nov, Primary insomnia F51.01 [place] [id number] [place] [address] 54756- 7684 Nov, Encounter for well woman exam with routine gynecological exam Z01.419 ; Screening breast examination Z12.31 and Otalgia of left ear H92.02 [place] [id number] [place] [address] 61879- 9817 15 Oct, 2016 [facility] [id number] [place] [address] 01884 -4834 14 Oct, 2016 Insect bite (nonvenomous) of right upper arm, initial encounter S40.861A [place] [id number] [place] [address] 42541- 8733 Oct, Pernicious anemia D51.0 [place] [id number] [place] [address] 06568- 2634 07 Oct, 2016 Anxiety, generalized F41.1 and Pernicious anemia D51.0 [place] [id number] [place] [address] 67383- 6866 Oct, Encounter to establish care with new doctor Z76.89 ; Moderate episode of recurrent major depressive disorder F33.1 ; Empty sella syndrome E23.6 ; Seasonal allergic rhinitis, unspecified allergic rhinitis trigger J30.2 ; Essential hypertension I10 and Osteoarthritis of spine with radiculopathy, lumbosacral region M47.27 [facility] [id number] [place] [address] 18613- 8222 Aug, [facility] [address] 71696- 6739 Aug, [place] [address] 42450- 0963 Aug, Anxiety, generalized F41.1 [place] [address] 81630- 6562 Aug, [place] [address] 12120- 4610 Aug, Primary insomnia F51.01 ; Essential hypertension I10 ; Empty sella syndrome E23.6 and Chronic pain due to trauma G89.21 [place] [address] 71866- 1280 July, Primary insomnia F51.01 [facility] [id number] [place] [address] 87937 -7676 July, Seasonal allergic rhinitis, unspecified allergic rhinitis trigger J30.2 and Acute suppurative otitis media of right ear without spontaneous rupture of tympanic membrane, recurrence not specified H66.001 [facility] [id number] [place] [address] 63564 -8471 July, Acute suppurative otitis media of left ear without spontaneous rupture of tympanic membrane, recurrence not specified H66.002 [facility] [id number] [place] [address] 85402- 1195 July, [facility] [address] 99624- 0608 July, Anxiety, generalized F41.1 [facility] [id number] [place] [address] 95645- 4996 Jun, [facility] [id number] [place] [address] 99012- 6135 Jun, Primary insomnia F51.01 [facility] [id number] [place] [address] 48942- 8486 Jun, Empty sella syndrome E23.6 ; Primary insomnia F51.01 and Hypokalemia E87.6 [facility] [id number] [place] [address] 24770- 6960 Jun, [facility] [id number] [place] [address] 86524- 2147 Jun, [facility] [id number] [place] [address] 31957- 3794 Jun, Empty sella syndrome E23.6 [facility] [id number] [place] [address] 94947- 4737 Jun, Anxiety, generalized F41.1 [facility] [id number] [place] [address] 19707- 3379 Jun, [facility] [id number] [place] [address] 03423- 5456 Jun, Empty sella syndrome E23.6 [facility] [id number] [place] [address] 35371- 6261 May, [facility] [id number] [place] [address] 56740- 6796 May, [facility] [id number] [place] [address] 86928- 6370 May, Empty sella syndrome E23.6 [facility] [id number] [place] [address] 39477- 5918 May, [facility] [id number] [place] [address] 85999- 2741 24 May, 2016 [place] [address] 01773- 6645 May, Primary insomnia F51.01 [facility] [id number] [place] [address] 80555- 2986 22 May, 2016 [place] [address] 70807- 6420 20 May, 2016 Nausea R11.0 ; Other headache syndrome G44.89 and Malignant hypertension I10 [place] [address] 46707- 4372 07 May, 2016 Anxiety, generalized F41.1 [place] [id number] [place] [address] 63669- 4410 28 Apr, 2016 Major depressive disorder, recurrent episode, moderate F33.1 [place] [address] [id number] [place] [address] 11120- 0297 28 Apr, 2016 Moderate episode of recurrent major depressive disorder F33.1 [place] [address] [id number] [place] [address] 04852- 3509 27 Apr, 2016 Other chronic postprocedural pain G89.28 [place] [address] [id number] [place] [address] 55206- 6440 15 Apr, 2016 Major depressive disorder, recurrent episode, moderate F33.1 [place] [id number] [place] [address] 02848- 1662 07 Apr, 2016 Anxiety, generalized F41.1 [place] [address] [id number] [place] [address] 18243- 0690 03 Apr, 2016 [facility] [id number] [place] [address] 96702- 1892 Mar, Other chronic postprocedural pain G89.28 ; Status post craniotomy Z98.890 ; Encounter for drug screening Z02.83 and Hematuria R31.9 [place] [id number] [place] [address] 00370- 9469 Mar, Major depressive disorder, recurrent episode, moderate F33.1 [place] [id number] [place] [address] 60658- 5376 Mar, [place] [id number] [place] [address] 09255- 4614 Mar, Anxiety, generalized F41.[address] 42192- 3883 Mar, Anxiety, generalized F41.1 and Pernicious anemia D51.[address] 31083- 3369 Mar, Colloid cyst of third ventricle 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 and Status post craniotomy Z98.[address] 42444- 4458 Mar, Primary insomnia F51.01 [place] [id number] [place] [address] 93307- 7954 Feb, [address] 79930- 1536 Feb, Encounter to establish care Z76.89 ; Status post craniotomy Z98.890 ; Colloid cyst of third ventricle 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 [facility] 02/2017
--- OUTSIDE RECORDS SUMMARY | 2017-12-25 03:07 | XMS REPORT ---
Author Author OSBALDO CORRAL Organization [facility] Address [address] [place] [address] Care Team Providers Care Research Administrator Name Role Phone OSBALDO CORRAL Unavailable PROBLEMS Type Condition ICD9-CM Code BDF06-IU Code Onset Dates Condition Status SNOMED Code Problem Anxiety, generalized F41.1 Active 76166650 Problem Essential hypertension I10 Active 75045972 Problem Major depressive disorder, recurrent episode, moderate F33.1 Active 926386662 Problem Abnormal laboratory test R89.9 Active 495490833 Problem Vitamin B12 deficiency anemia due to intrinsic factor deficiency D51.0 Active 77437281 Problem Seasonal allergic rhinitis, unspecified allergic rhinitis trigger J30.2 Active 637320880 Problem Chronic pain due to trauma G89.21 Active 848744573 Problem Migraine without status migrainosus, not intractable, unspecified migraine type G43.909 Active 18590031 Problem Adjustment disorder with mixed anxiety and depressed mood F43.23 Active 85823065 Problem Elevated serum creatinine R79.89 Active 385484436 Problem 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 [id number] [address] Nov, Chronic pain due to trauma G89.21 and Anxiety, generalized F41.1 [facility] [address] [id number] [address] Oct, [facility] [address] [id number] [address] Oct, Abnormal laboratory test R89.9 [facility] [id number] [place] [address] 47076- 0586 Oct, [facility] [id number] [place] [address] 26550- 5127 Oct, [facility] [id number] [place] [address] 61370- 7499 Oct, Essential hypertension I10 [facility] [id number] [place] [address] 41355- 5822 Oct, [facility] [id number] [place] [address] 88340- 8458 Oct, [facility] [id number] [place] [address] 22946- 6421 Oct, Essential hypertension I10 ; Chronic nausea R11.0 ; Hypokalemia E87.6 ; Abnormal thyroid stimulating hormone (TSH) level R79.89 and Recurrent acute suppurative otitis media without spontaneous rupture of left tympanic membrane H66.005 [facility] [id number] [place] [address] 37660- 1543 Oct, [facility] [id number] [place] [address] 58442- 0611 Oct, Chronic pain due to trauma G89.21 and Anxiety, generalized F41.1 [facility] [id number] [place] [address] 13359- 7231 Oct, [facility] [id number] [place] [address] 30029- 7108 Sep, Anxiety, generalized F41.1 and Chronic pain due to trauma G89.21 [facility] [id number] [place] [address] 50931- 3981 Sep, [facility] [id number] [place] [address] 66082- 3427 Sep, Otalgia of left ear H92.02 and Low pressure hydrocephalus G91.2 [place] [id number] [place] [address] 70586- 6496 Sep, [place] [address] 49996- 5081 Aug, Essential hypertension I10 ; 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 ; Empty sella syndrome E23.6 ; Pernicious anemia D51.0 ; Anxiety , generalized F41.1 ; Major depressive disorder, recurrent episode, moderate F33.1 ; Primary insomnia F51.01 ; Hypokalemia E87.6 and Chronic pain due to trauma G89.21 [place] [id number] [place] [address] 57699- 2675 Aug, [place] [address] 72316- 7709 Aug, Anxiety, generalized F41.1 and Osteoarthritis of spine with radiculopathy, lumbosacral region M47.27 [place] [id number] [place] [address] 29278- 7565 Aug, [place] [id number] [place] [address] 51206- 0249 Aug, Primary insomnia F51.01 [place] [id number] [place] [address] 96419- 8544 July, Anxiety, generalized F41.1 and Osteoarthritis of spine with radiculopathy, lumbosacral region M47.27 [place] [id number] [place] [address] 10930- 1476 July, Essential hypertension I10 [place] [id number] [place] [address] 01264- 5103 July, Major depressive disorder, recurrent episode, moderate F33.1 [place] [id number] [place] [address] 25849- 6374 July, Primary insomnia F51.01 [place] [id number] [place] [address] 09304- 4204 Jun, Anxiety, generalized F41.1 and Osteoarthritis of spine with radiculopathy, lumbosacral region M47.27 [facility] WALK IN [facility] [address] [id number] Jun, Acute frontal sinusitis, recurrence not specified J01.10 ; Sinus pressure J34.89 ; Post-nasal drip R09.82 and Sore throat J02.9 [place] [address] 46748- 2355 Jun, Primary insomnia F51.01 [place] [address] 25147- 2444 May, Anxiety, generalized F41.1 and Osteoarthritis of spine with radiculopathy, lumbosacral region M47.27 [place] [address] 13072- 2996 May, Essential hypertension I10 ; 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 ; Empty sella syndrome E23.6 ; Pernicious anemia D51.0 ; Major depressive disorder, recurrent episode, moderate F33.1 ; Primary insomnia F51.01 ; Other hyperlipidemia E78.4 and Anxiety, generalized F41.1 [place] [id number] [place] [address] 84885- 2672 May, Vitamin B12 deficiency anemia due to intrinsic factor deficiency D51.0 and Pernicious anemia D51.0 [facility] IN [facility] [id number] [place] [address] 86619 -3280 May, Migraine without status migrainosus, not intractable, unspecified migraine type G43.909 [place] [address] 80898- 9001 May, [place] [address] 13020- 5374 May, [place] [address] [place] [id number]- [address]248 May, Osteoarthritis of spine with radiculopathy, lumbosacral region M47.27 and Primary insomnia F51.01 [place] [address] 27132- 6467 May, Osteoarthritis of spine with radiculopathy, lumbosacral region M47.27 and Anxiety, generalized F41.1 [place] [address] 74946- 0809 May, [place] [address] 47259- 4284 Apr, [place] [address] 48560- 7350 Apr, [place] [address] 36299- 5822 Apr, Anxiety, generalized F41.1 ; Major depressive disorder, recurrent episode, moderate F33.1 ; Moderate episode of recurrent major depressive disorder F33.1 and Adjustment disorder with mixed anxiety and depressed mood F43.23 [place] [address] 99486- 1152 Apr, Major depressive disorder, recurrent episode, moderate F33.1 ; Anxiety, generalized F41.1 ; Essential hypertension I10 ; Primary insomnia F51.01 and Colloid cyst of third ventricle Q04.6 [place] [address] 10649- 0619 Apr, Other chest pain R07.89 ; Sinus bradycardia R00.1 ; Essential hypertension I10 and Other hyperlipidemia E78.4 [place] [address] 25742- 3918 Apr, Primary insomnia F51.01 [place] [address] 10512- 3048 Apr, [place] [address] 72512- 4273 Apr, Anxiety, generalized F41.1 [place] [id number] [place] [address] 03590- 3725 Apr, Osteoarthritis of spine with radiculopathy, lumbosacral region M47.27 [place] [id number] [place] [address] 26398- 0827 Mar, Intractable migraine without aura and without status migrainosus G43.019 and Dyshidrotic hand dermatitis L30.1 [facility] WALK IN [place] [address] 29988 -5827 Mar, Skin infection L08.9 [place] [address] 76209- 1237 Mar, [facility] WALK IN [place] [address] 67385 -8099 Mar, Skin lesion L98.9 [place] [address] 89203- 4398 Mar, Primary insomnia F51.01 and Anxiety, generalized F41.1 [place] [address] 85749- 5820 Mar, Osteoarthritis of spine with radiculopathy, lumbosacral region M47.27 [place] [id number] [place] [address] 14903- 6329 Feb, [place] [address] 30884- 3333 Feb, [place] [address] 52906- 3062 Feb, Hypokalemia E87.6 [place] [id number] [place] [address] 81854- 1556 Feb, Intractable migraine without aura and without status migrainosus G43.019 and Other chest pain R07.89 [place] [id number] [place] [address] 59299- 8056 14 Feb, 2017 [place] [address] 33621- 2043 Feb, Osteoarthritis of spine with radiculopathy, lumbosacral region M47.27 [place] [id number] [place] [address] 57619- 8641 Feb, Hypokalemia E87.6 [place] [id number] [place] [address] 88517- 1365 08 Feb, 2017 [place] [address] 54686- 0608 Feb, Primary insomnia F51.01 and Anxiety, generalized F41.1 [facility] WALK IN [place] [id number] [place] [address] 33483 -0183 Feb, Acute suppurative otitis media of both ears without spontaneous rupture of tympanic membranes, recurrence not specified H66.003 [place] [id number] [place] [address] 56928- 4193 Feb, [place] [id number] [place] [address] 43536- 8267 Jan, Osteoarthritis of spine with radiculopathy, lumbosacral region M47.27 [place] [id number] [place] [address] 12140- 0632 Jan, Primary insomnia F51.01 and Anxiety, generalized F41.1 [place] [id number] [place] [address] 64068- 4219 02 Jan, 2017 Chronic pain due to trauma G89.21 ; Left otitis media with effusion H65.92 and Otalgia of left ear H92.02 [facility] [id number] [place] [address] 04046 -6518 Jan, Bilateral otitis media with effusion H65.93 [place] [id number] [place] [address] 66958- 7399 Dec, [facility] [id number] [place] [address] 86149- 5582 Dec, Primary insomnia F51.01 and Anxiety, generalized F41.1 [facility] [id number] [place] [address] 00778- 5504 25 Nov, 2016 [place] [address] 31720- 4931 15 Nov, 2016 [facility] [id number] [place] [address] 64477- 2952 13 Nov, 2016 Anxiety, generalized F41.1 [place] [id number] [place] [address] 23966- 5693 12 Nov, 2016 Pernicious anemia D51.0 [place] [id number] [place] [address] 36382- 2968 Nov, Primary insomnia F51.01 [place] [id number] [place] [address] 22941- 3307 Nov, Encounter for well woman exam with routine gynecological exam Z01.419 ; Screening breast examination Z12.31 and Otalgia of left ear H92.02 [place] [id number] [place] [address] 77878- 8964 15 Oct, 2016 [facility] [id number] [place] [address] 66300 -1656 14 Oct, 2016 Insect bite (nonvenomous) of right upper arm, initial encounter S40.861A [place] [id number] [place] [address] 87006- 2147 Oct, Pernicious anemia D51.0 [place] [id number] [place] [address] 79740- 7891 07 Oct, 2016 Anxiety, generalized F41.1 and Pernicious anemia D51.0 [place] [id number] [place] [address] 71681- 5755 Oct, Encounter to establish care with new doctor Z76.89 ; Moderate episode of recurrent major depressive disorder F33.1 ; Empty sella syndrome E23.6 ; Seasonal allergic rhinitis, unspecified allergic rhinitis trigger J30.2 ; Essential hypertension I10 and Osteoarthritis of spine with radiculopathy, lumbosacral region M47.27 [facility] [id number] [place] [address] 28997- 8328 Aug, [facility] [address] 16469- 2281 Aug, [place] [address] 18014- 8765 Aug, Anxiety, generalized F41.1 [place] [address] 73152- 8969 Aug, [place] [address] 74748- 8760 Aug, Primary insomnia F51.01 ; Essential hypertension I10 ; Empty sella syndrome E23.6 and Chronic pain due to trauma G89.21 [place] [address] 80251- 5279 July, Primary insomnia F51.01 [facility] [id number] [place] [address] 31399 -9914 July, Seasonal allergic rhinitis, unspecified allergic rhinitis trigger J30.2 and Acute suppurative otitis media of right ear without spontaneous rupture of tympanic membrane, recurrence not specified H66.001 [facility] [id number] [place] [address] 42651 -2039 July, Acute suppurative otitis media of left ear without spontaneous rupture of tympanic membrane, recurrence not specified H66.002 [facility] [id number] [place] [address] 78360- 3254 July, [facility] [address] 71274- 5651 July, Anxiety, generalized F41.1 [facility] [id number] [place] [address] 47496- 9251 Jun, [facility] [id number] [place] [address] 67641- 7263 Jun, Primary insomnia F51.01 [facility] [id number] [place] [address] 25230- 3001 Jun, Empty sella syndrome E23.6 ; Primary insomnia F51.01 and Hypokalemia E87.6 [facility] [id number] [place] [address] 18862- 8467 Jun, [facility] [id number] [place] [address] 36529- 1234 Jun, [facility] [id number] [place] [address] 78010- 3032 Jun, Empty sella syndrome E23.6 [facility] [id number] [place] [address] 09024- 4783 Jun, Anxiety, generalized F41.1 [facility] [id number] [place] [address] 07320- 3968 Jun, [facility] [id number] [place] [address] 63437- 4843 Jun, Empty sella syndrome E23.6 [facility] [id number] [place] [address] 03474- 0724 May, [facility] [id number] [place] [address] 33171- 4827 May, [facility] [id number] [place] [address] 42321- 6407 May, Empty sella syndrome E23.6 [facility] [id number] [place] [address] 63383- 8180 May, [facility] [id number] [place] [address] 87876- 0671 24 May, 2016 [place] [address] 64242- 5978 May, Primary insomnia F51.01 [facility] [id number] [place] [address] 16191- 5775 22 May, 2016 [place] [address] 40664- 6194 20 May, 2016 Nausea R11.0 ; Other headache syndrome G44.89 and Malignant hypertension I10 [place] [address] 72101- 0975 07 May, 2016 Anxiety, generalized F41.1 [place] [id number] [place] [address] 86581- 0939 28 Apr, 2016 Major depressive disorder, recurrent episode, moderate F33.1 [place] [address] [place] [id number] [place] [address] 76029- 4950 28 Apr, 2016 Moderate episode of recurrent major depressive disorder F33.1 [place] [address] [id number] [place] [address] 88145- 8242 27 Apr, 2016 Other chronic postprocedural pain G89.28 [place] [address] [place] [id number] [place] [address] 49812- 7202 15 Apr, 2016 Major depressive disorder, recurrent episode, moderate F33.1 [place] [address] [place] [id number] [place] [address] 26434- 9533 07 Apr, 2016 Anxiety, generalized F41.1 [place] [address] [id number] [place] [address] 34774- 1881 03 Apr, 2016 [facility] [id number] [place] [address] 35749- 1119 Mar, Other chronic postprocedural pain G89.28 ; Status post craniotomy Z98.890 ; Encounter for drug screening Z02.83 and Hematuria R31.9 [place] [id number] [place] [address] 76985- 4827 Mar, Major depressive disorder, recurrent episode, moderate F33.1 [place] [id number] [place] [address] 04841- 9313 Mar, [place] [id number] [place] [address] 09834- 5457 Mar, Anxiety, generalized F41.[address] 05611- 7480 Mar, Anxiety, generalized F41.1 and Pernicious anemia D51.[address] 55566- 1268 Mar, 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
--- OUTSIDE RECORDS SUMMARY | 2017-12-25 03:07 | XMS REPORT ---
Author Author OSBALDO CORRAL Organization [facility] Address [address] [place] [address] Care Team Providers Care Director Motion Picture Name Role Phone OSBALDO CORRAL Unavailable PROBLEMS Type Condition ICD9-CM Code QPJ10-FS Code Onset Dates Condition Status SNOMED Code Problem Anxiety, generalized F41.1 Active 24446347 Problem Essential hypertension I10 Active 55374042 Problem Major depressive disorder, recurrent episode, moderate F33.1 Active 328608734 Problem Abnormal laboratory test R89.9 Active 573018607 Problem Vitamin B12 deficiency anemia due to intrinsic factor deficiency D51.0 Active 81656867 Problem Seasonal allergic rhinitis, unspecified allergic rhinitis trigger J30.2 Active 042178370 Problem Chronic pain due to trauma G89.21 Active 382583300 Problem Migraine without status migrainosus, not intractable, unspecified migraine type G43.909 Active 86249106 Problem Adjustment disorder with mixed anxiety and depressed mood F43.23 Active 74578658 Problem Elevated serum creatinine R79.89 Active 425002800 Problem 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 Active 83220653 Problem Pernicious anemia D51.0 Active 37458269 Problem Hypokalemia E87.6 Active 65729778 Problem Other hyperlipidemia E78.4 Active 89705886 Problem Empty sella syndrome E23.6 Active 397732717 Problem Primary insomnia F51.01 Active 3067610 ALLERGIES No Information ENCOUNTERS Encounter Location Date Diagnosis [facility] [address] [facility] [id number] [address] Nov, Chronic pain due to trauma G89.21 and Anxiety, generalized F41.1 [facility] [address] [id number] [address] Oct, [facility] [address] [id number] [address] Oct, Abnormal laboratory test R89.9 [facility] [id number] [place] [address] 59491- 7907 Oct, [facility] [id number] [place] [address] 74644- 1640 Oct, [facility] [id number] [place] [address] 94282- 5141 Oct, Essential hypertension I10 [facility] [id number] [place] [address] 65623- 5161 Oct, [facility] [id number] [place] [address] 66032- 7833 Oct, [facility] [id number] [place] [address] 94955- 9474 Oct, Essential hypertension I10 ; Chronic nausea R11.0 ; Hypokalemia E87.6 ; Abnormal thyroid stimulating hormone (TSH) level R79.89 and Recurrent acute suppurative otitis media without spontaneous rupture of left tympanic membrane H66.005 [facility] [id number] [place] [address] 98712- 0711 Oct, [facility] [id number] [place] [address] 00942- 3338 Oct, Chronic pain due to trauma G89.21 and Anxiety, generalized F41.1 [facility] [id number] [place] [address] 94579- 4302 Oct, [facility] [id number] [place] [address] 74348- 2153 Sep, Anxiety, generalized F41.1 and Chronic pain due to trauma G89.21 [facility] [id number] [place] [address] 57180- 3105 Sep, [facility] [id number] [place] [address] 58183- 5827 Sep, Otalgia of left ear H92.02 and Low pressure hydrocephalus G91.2 [place] [id number] [place] [address] 40873- 7368 Sep, [place] [address] 34097- 7958 Aug, Essential hypertension I10 ; 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 ; Empty sella syndrome E23.6 ; Pernicious anemia D51.0 ; Anxiety , generalized F41.1 ; Major depressive disorder, recurrent episode, moderate F33.1 ; Primary insomnia F51.01 ; Hypokalemia E87.6 and Chronic pain due to trauma G89.21 [place] [id number] [place] [address] 17936- 4329 Aug, [place] [address] 15725- 8610 Aug, Anxiety, generalized F41.1 and Osteoarthritis of spine with radiculopathy, lumbosacral region M47.27 [place] [id number] [place] [address] 00760- 7220 Aug, [place] [id number] [place] [address] 93024- 0210 Aug, Primary insomnia F51.01 [place] [id number] [place] [address] 53244- 5435 July, Anxiety, generalized F41.1 and Osteoarthritis of spine with radiculopathy, lumbosacral region M47.27 [place] [id number] [place] [address] 30466- 0974 July, Essential hypertension I10 [place] [id number] [place] [address] 55110- 5902 July, Major depressive disorder, recurrent episode, moderate F33.1 [place] [id number] [place] [address] 37760- 8553 July, Primary insomnia F51.01 [place] [id number] [place] [address] 96895- 2940 Jun, Anxiety, generalized F41.1 and Osteoarthritis of spine with radiculopathy, lumbosacral region M47.27 [facility] [address] [id number] Jun, Acute frontal sinusitis, recurrence not specified J01.10 ; Sinus pressure J34.89 ; Post-nasal drip R09.82 and Sore throat J02.9 [place] [address] 28050- 2310 Jun, Primary insomnia F51.01 [place] [address] 09953- 1864 May, Anxiety, generalized F41.1 and Osteoarthritis of spine with radiculopathy, lumbosacral region M47.27 [place] [address] 86010- 1120 May, Essential hypertension I10 ; 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 ; Empty sella syndrome E23.6 ; Pernicious anemia D51.0 ; Major depressive disorder, recurrent episode, moderate F33.1 ; Primary insomnia F51.01 ; Other hyperlipidemia E78.4 and Anxiety, generalized F41.1 [place] [id number] [place] [address] 33870- 1735 May, Vitamin B12 deficiency anemia due to intrinsic factor deficiency D51.0 and Pernicious anemia D51.0 [facility] [id number] [place] [address] 37761 -4167 May, Migraine without status migrainosus, not intractable, unspecified migraine type G43.909 [place] [address] 02688- 8344 May, [place] [address] 93332- 5255 May, [place] [address] [place] [phone]- 1904 May, Osteoarthritis of spine with radiculopathy, lumbosacral region M47.27 and Primary insomnia F51.01 [place] [address] 79019- 6579 May, Osteoarthritis of spine with radiculopathy, lumbosacral region M47.27 and Anxiety, generalized F41.1 [place] [address] 68991- 7116 May, [place] [address] 33127- 2733 Apr, [place] [address] 82584- 9675 Apr, [place] [address] 09070- 3827 Apr, Anxiety, generalized F41.1 ; Major depressive disorder, recurrent episode, moderate F33.1 ; Moderate episode of recurrent major depressive disorder F33.1 and Adjustment disorder with mixed anxiety and depressed mood F43.23 [place] [address] 43095- 3834 Apr, Major depressive disorder, recurrent episode, moderate F33.1 ; Anxiety, generalized F41.1 ; Essential hypertension I10 ; Primary insomnia F51.01 and Colloid cyst of third ventricle Q04.6 [place] [address] 27239- 5422 Apr, Other chest pain R07.89 ; Sinus bradycardia R00.1 ; Essential hypertension I10 and Other hyperlipidemia E78.4 [place] [address] 76599- 1392 Apr, Primary insomnia F51.01 [place] [address] 06750- 4731 Apr, [place] [address] 18784- 5408 Apr, Anxiety, generalized F41.1 [place] [id number] [place] [address] 34637- 8597 Apr, Osteoarthritis of spine with radiculopathy, lumbosacral region M47.27 [place] [id number] [place] [address] 85629- 4965 Mar, Intractable migraine without aura and without status migrainosus G43.019 and Dyshidrotic hand dermatitis L30.1 [facility]ALK IN [place] [address] 67768 -9646 Mar, Skin infection L08.9 [place] [address] 31434- 8903 Mar, [facility] [place] [address] 39714 -5917 Mar, Skin lesion L98.9 [place] [address] 35412- 6047 Mar, Primary insomnia F51.01 and Anxiety, generalized F41.1 [place] [address] 49941- 6734 Mar, Osteoarthritis of spine with radiculopathy, lumbosacral region M47.27 [place] [id number] [place] [address] 22001- 9183 Feb, [place] [address] 77061- 2992 Feb, [place] [address] 94184- 0930 Feb, Hypokalemia E87.6 [place] [id number] [place] [address] 19152- 5974 Feb, Intractable migraine without aura and without status migrainosus G43.019 and Other chest pain R07.89 [place] [id number] [place] [address] 63088- 6646 14 Feb, 2017 [place] [address] 55355- 0152 Feb, Osteoarthritis of spine with radiculopathy, lumbosacral region M47.27 [place] [id number] [place] [address] 72112- 5983 Feb, Hypokalemia E87.6 [place] [id number] [place] [address] 35202- 2721 08 Feb, 2017 [place] [address] 94553- 4239 Feb, Primary insomnia F51.01 and Anxiety, generalized F41.1 [facility] [place] [id number] [place] [address] 52223 -4760 Feb, Acute suppurative otitis media of both ears without spontaneous rupture of tympanic membranes, recurrence not specified H66.003 [place] [id number] [place] [address] 58169- 1188 Feb, [place] [id number] [place] [address] 61250- 5860 Jan, Osteoarthritis of spine with radiculopathy, lumbosacral region M47.27 [place] [id number] [place] [address] 01835- 9591 Jan, Primary insomnia F51.01 and Anxiety, generalized F41.1 [place] [id number] [place] [address] 56379- 4149 02 Jan, 2017 Chronic pain due to trauma G89.21 ; Left otitis media with effusion H65.92 and Otalgia of left ear H92.02 [facility] [id number] [place] [address] 37399 -2918 Jan, Bilateral otitis media with effusion H65.93 [place] [id number] [place] [address] 76854- 3907 Dec, [facility] [id number] [place] [address] 74865- 3034 Dec, Primary insomnia F51.01 and Anxiety, generalized F41.1 [facility] [id number] [place] [address] 42294- 8456 25 Nov, 2016 [place] [address] 25861- 8613 15 Nov, 2016 [facility] [id number] [place] [address] 16709- 9553 13 Nov, 2016 Anxiety, generalized F41.1 [place] [id number] [place] [address] 10279- 6111 12 Nov, 2016 Pernicious anemia D51.0 [place] [id number] [place] [address] 01300- 0984 Nov, Primary insomnia F51.01 [place] [id number] [place] [address] 92376- 7875 Nov, Encounter for well woman exam with routine gynecological exam Z01.419 ; Screening breast examination Z12.31 and Otalgia of left ear H92.02 [place] [id number] [place] [address] 29008- 3366 15 Oct, 2016 [facility] [id number] [place] [address] 66462 -2807 14 Oct, 2016 Insect bite (nonvenomous) of right upper arm, initial encounter S40.861A [place] [id number] [place] [address] 62246- 1907 Oct, Pernicious anemia D51.0 [place] [id number] [place] [address] 36707- 4181 07 Oct, 2016 Anxiety, generalized F41.1 and Pernicious anemia D51.0 [place] [id number] [place] [address] 83025- 4990 Oct, Encounter to establish care with new doctor Z76.89 ; Moderate episode of recurrent major depressive disorder F33.1 ; Empty sella syndrome E23.6 ; Seasonal allergic rhinitis, unspecified allergic rhinitis trigger J30.2 ; Essential hypertension I10 and Osteoarthritis of spine with radiculopathy, lumbosacral region M47.27 [facility] [id number] [place] [address] 52723- 0514 Aug, [facility] [address] 74890- 8265 Aug, [place] [address] 38816- 9177 Aug, Anxiety, generalized F41.1 [place] [address] 41341- 0951 Aug, [place] [address] 69170- 5801 Aug, Primary insomnia F51.01 ; Essential hypertension I10 ; Empty sella syndrome E23.6 and Chronic pain due to trauma G89.21 [place] [address] 50947- 5859 July, Primary insomnia F51.01 [facility] [id number] [place] [address] 89665 -0103 July, Seasonal allergic rhinitis, unspecified allergic rhinitis trigger J30.2 and Acute suppurative otitis media of right ear without spontaneous rupture of tympanic membrane, recurrence not specified H66.001 [facility] [id number] [place] [address] 29318 -9612 July, Acute suppurative otitis media of left ear without spontaneous rupture of tympanic membrane, recurrence not specified H66.002 [facility] [id number] [place] [address] 75573- 1643 July, [facility] [address] 21231- 3502 July, Anxiety, generalized F41.1 [facility] [id number] [place] [address] 50806- 4585 Jun, [facility] [id number] [place] [address] 27106- 8315 Jun, Primary insomnia F51.01 [facility] [id number] [place] [address] 52617- 3522 Jun, Empty sella syndrome E23.6 ; Primary insomnia F51.01 and Hypokalemia E87.6 [facility] [id number] [place] [address] 45443- 5145 Jun, [facility] [id number] [place] [address] 47369- 7632 Jun, [facility] [id number] [place] [address] 85333- 7854 Jun, Empty sella syndrome E23.6 [facility] [id number] [place] [address] 59909- 1151 Jun, Anxiety, generalized F41.1 [facility] [id number] [place] [address] 06598- 1514 Jun, [facility] [id number] [place] [address] 93029- 4156 Jun, Empty sella syndrome E23.6 [facility] [id number] [place] [address] 19340- 2795 May, [facility] [id number] [place] [address] 45479- 5530 May, [facility] [id number] [place] [address] 04861- 3030 May, Empty sella syndrome E23.6 [facility] [id number] [place] [address] 28638- 0837 May, [facility] [id number] [place] [address] 19606- 3725 24 May, 2016 [place] [address] 63250- 4615 May, Primary insomnia F51.01 [facility] [id number] [place] [address] 23267- 7152 22 May, 2016 [place] [address] 64951- 2629 20 May, 2016 Nausea R11.0 ; Other headache syndrome G44.89 and Malignant hypertension I10 [place] [address] 24573- 0672 07 May, 2016 Anxiety, generalized F41.1 [place] [id number] [place] [address] 62905- 4751 28 Apr, 2016 Major depressive disorder, recurrent episode, moderate F33.1 [place] [id number] [place] [address] 00535- 5945 28 Apr, 2016 Moderate episode of recurrent major depressive disorder F33.1 [place] [id number] [place] [address] 27214- 8948 27 Apr, 2016 Other chronic postprocedural pain G89.28 [place] [address] [id number] [place] [address] 30187- 6921 15 Apr, 2016 Major depressive disorder, recurrent episode, moderate F33.1 [place] [id number] [place] [address] 45706- 4430 07 Apr, 2016 Anxiety, generalized F41.1 [place] [id number] [place] [address] 95889- 1286 03 Apr, 2016 [facility] [id number] [place] [address] 97723- 8646 Mar, Other chronic postprocedural pain G89.28 ; Status post craniotomy Z98.890 ; Encounter for drug screening Z02.83 and Hematuria R31.9 [place] [id number] [place] [address] 61468- 4769 Mar, Major depressive disorder, recurrent episode, moderate F33.1 [place] [id number] [place] [address] 91650- 5568 Mar, [place] [id number] [place] [address] 81024- 3311 Mar, Anxiety, generalized F41.1 [place] [id number] [place] [address] 56403- 2637 Mar, Anxiety, generalized F41.1 and Pernicious anemia D51.[address] 15194- 3916 Mar, 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 and Status post craniotomy Z98.[address] 87717- 4282 Mar, Primary insomnia F51.01 [place] [id number] [place] [address] 96382- 7741 Feb, [address] 40705- 1229 Feb, Encounter to establish care Z76.89 ; Status post craniotomy Z98.890 ; 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
--- OUTSIDE RECORDS SUMMARY | 2017-12-25 03:08 | XMS REPORT ---
Author Author OSBALDO CORRAL Organization [facility] Address [address] [place] [address] Care Team Providers Care [employer] Name Role Phone OSBALDO CORRAL Unavailable PROBLEMS Type Condition ICD9-CM Code CHB21-GA Code Onset Dates Condition Status SNOMED Code Problem Anxiety, generalized F41.1 Active 44448136 Problem Essential hypertension I10 Active 92315443 Problem Major depressive disorder, recurrent episode, moderate F33.1 Active 790586659 Problem Abnormal laboratory test R89.9 Active 523161141 Problem Vitamin B12 deficiency anemia due to intrinsic factor deficiency D51.0 Active 36716514 Problem Seasonal allergic rhinitis, unspecified allergic rhinitis trigger J30.2 Active 217010875 Problem Chronic pain due to trauma G89.21 Active 373596111 Problem Migraine without status migrainosus, not intractable, unspecified migraine type G43.909 Active 48711745 Problem Adjustment disorder with mixed anxiety and depressed mood F43.23 Active 66567289 Problem Elevated serum creatinine R79.89 Active 508181843 Problem 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 Active 48069120 Problem Pernicious anemia D51.0 Active 34283035 Problem Hypokalemia E87.6 Active 22644628 Problem Other hyperlipidemia E78.4 Active 61430359 Problem Empty sella syndrome E23.6 Active 895982297 Problem Primary insomnia F51.01 Active 4803514 ALLERGIES No Information ENCOUNTERS Encounter Location Date Diagnosis [facility] [address] [facility] [id number] [address] Nov, Chronic pain due to trauma G89.21 and Anxiety, generalized F41.1 [facility] [address] [id number] [address] Oct, [facility] [address] [id number] [address] Oct, Abnormal laboratory test R89.9 [facility] [id number] [place] [address] 58882- 7234 Oct, [facility] [id number] [place] [address] 95472- 6741 Oct, [facility] [id number] [place] [address] 09391- 3154 Oct, Essential hypertension I10 [facility] [id number] [place] [address] 31941- 4856 Oct, [facility] [id number] [place] [address] 32646- 5888 Oct, [facility] [id number] [place] [address] 43979- 1509 Oct, Essential hypertension I10 ; Chronic nausea R11.0 ; Hypokalemia E87.6 ; Abnormal thyroid stimulating hormone (TSH) level R79.89 and Recurrent acute suppurative otitis media without spontaneous rupture of left tympanic membrane H66.005 [facility] [id number] [place] [address] 85854- 3812 Oct, [facility] [id number] [place] [address] 50831- 6042 Oct, Chronic pain due to trauma G89.21 and Anxiety, generalized F41.1 [facility] [id number] [place] [address] 99628- 0341 Oct, [facility] [id number] [place] [address] 56786- 7714 Sep, Anxiety, generalized F41.1 and Chronic pain due to trauma G89.21 [facility] [id number] [place] [address] 59508- 9064 Sep, [facility] [id number] [place] [address] 97441- 1286 Sep, Otalgia of left ear H92.02 and Low pressure hydrocephalus G91.2 [place] [id number] [place] [address] 07946- 2676 Sep, [place] [address] 14131- 7294 Aug, Essential hypertension I10 ; 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 ; Empty sella syndrome E23.6 ; Pernicious anemia D51.0 ; Anxiety , generalized F41.1 ; Major depressive disorder, recurrent episode, moderate F33.1 ; Primary insomnia F51.01 ; Hypokalemia E87.6 and Chronic pain due to trauma G89.21 [place] [id number] [place] [address] 18391- 1092 Aug, [place] [address] 42195- 4649 Aug, Anxiety, generalized F41.1 and Osteoarthritis of spine with radiculopathy, lumbosacral region M47.27 [place] [id number] [place] [address] 90603- 8786 Aug, [place] [id number] [place] [address] 73709- 2606 Aug, Primary insomnia F51.01 [place] [id number] [place] [address] 88723- 0623 July, Anxiety, generalized F41.1 and Osteoarthritis of spine with radiculopathy, lumbosacral region M47.27 [place] [id number] [place] [address] 45391- 4065 July, Essential hypertension I10 [place] [id number] [place] [address] 64231- 8241 July, Major depressive disorder, recurrent episode, moderate F33.1 [place] [id number] [place] [address] 13201- 0631 July, Primary insomnia F51.01 [place] [id number] [place] [address] 92766- 6561 Jun, Anxiety, generalized F41.1 and Osteoarthritis of spine with radiculopathy, lumbosacral region M47.27 [facility] [address] [phone] Jun, Acute frontal sinusitis, recurrence not specified J01.10 ; Sinus pressure J34.89 ; Post-nasal drip R09.82 and Sore throat J02.9 [place] [address] 79045- 9987 Jun, Primary insomnia F51.01 [place] [address] 71313- 6261 May, Anxiety, generalized F41.1 and Osteoarthritis of spine with radiculopathy, lumbosacral region M47.27 [place] [address] 51704- 4841 May, Essential hypertension I10 ; Colloid cyst of third ventricle Q04.6 ; Empty sella syndrome E23.6 ; Pernicious anemia D51.0 ; Major depressive disorder, recurrent episode, moderate F33.1 ; Primary insomnia F51.01 ; Other hyperlipidemia E78.4 and Anxiety, generalized F41.1 [place] [id number] [place] [address] 31257- 7200 May, Vitamin B12 deficiency anemia due to intrinsic factor deficiency D51.0 and Pernicious anemia D51.0 [facility] [id number] [place] [address] 11869 -9386 May, Migraine without status migrainosus, not intractable, unspecified migraine type G43.909 [place] [address] 32696- 0073 May, [place] [address] 04925- 0079 May, [place] [address] [id number]- 7529 May, Osteoarthritis of spine with radiculopathy, lumbosacral region M47.27 and Primary insomnia F51.01 [place] [address] 95259- 7111 May, Osteoarthritis of spine with radiculopathy, lumbosacral region M47.27 and Anxiety, generalized F41.1 [place] [address] 40580- 8431 May, [place] [address] 77673- 9762 Apr, [place] [address] 81358- 2025 Apr, [place] [address] 42232- 6318 Apr, Anxiety, generalized F41.1 ; Major depressive disorder, recurrent episode, moderate F33.1 ; Moderate episode of recurrent major depressive disorder F33.1 and Adjustment disorder with mixed anxiety and depressed mood F43.23 [place] [address] 32591- 8283 Apr, Major depressive disorder, recurrent episode, moderate F33.1 ; Anxiety, generalized F41.1 ; Essential hypertension I10 ; Primary insomnia F51.01 and Colloid cyst of third ventricle 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 [place] [address] 88633- 3265 Apr, Other chest pain R07.89 ; Sinus bradycardia R00.1 ; Essential hypertension I10 and Other hyperlipidemia E78.4 [place] [address] 90767- 6483 Apr, Primary insomnia F51.01 [place] [address] 69164- 1640 Apr, [place] [address] 07284- 7317 Apr, Anxiety, generalized F41.1 [place] [id number] [place] [address] 87247- 7897 Apr, Osteoarthritis of spine with radiculopathy, lumbosacral region M47.27 [place] [id number] [place] [address] 12945- 8329 Mar, Intractable migraine without aura and without status migrainosus G43.019 and Dyshidrotic hand dermatitis L30.1 [facility] [place] [address] 29411 -3060 Mar, Skin infection L08.9 [place] [address] 74522- 0293 Mar, [facility] [place] [address] 71136 -5566 Mar, Skin lesion L98.9 [place] [address] 86661- 5013 Mar, Primary insomnia F51.01 and Anxiety, generalized F41.1 [place] [address] 43707- 5072 Mar, Osteoarthritis of spine with radiculopathy, lumbosacral region M47.27 [place] [id number] [place] [address] 34446- 2230 Feb, [place] [address] 69792- 8318 Feb, [place] [address] 93135- 6289 Feb, Hypokalemia E87.6 [place] [id number] [place] [address] 28061- 4911 Feb, Intractable migraine without aura and without status migrainosus G43.019 and Other chest pain R07.89 [place] [id number] [place] [address] 09950- 9862 14 Feb, 2017 [place] [address] 01430- 8096 Feb, Osteoarthritis of spine with radiculopathy, lumbosacral region M47.27 [place] [id number] [place] [address] 76982- 0532 Feb, Hypokalemia E87.6 [place] [id number] [place] [address] 75413- 7899 08 Feb, 2017 [place] [address] 18334- 1357 Feb, Primary insomnia F51.01 and Anxiety, generalized F41.1 [facility] [place] [id number] [place] [address] 67542 -6843 Feb, Acute suppurative otitis media of both ears without spontaneous rupture of tympanic membranes, recurrence not specified H66.003 [place] [id number] [place] [address] 20700- 2068 Feb, [place] [id number] [place] [address] 04792- 4527 Jan, Osteoarthritis of spine with radiculopathy, lumbosacral region M47.27 [place] [id number] [place] [address] 21539- 9512 Jan, Primary insomnia F51.01 and Anxiety, generalized F41.1 [place] [id number] [place] [address] 66128- 3960 02 Jan, 2017 Chronic pain due to trauma G89.21 ; Left otitis media with effusion H65.92 and Otalgia of left ear H92.02 [facility] [id number] [place] [address] 80091 -1988 Jan, Bilateral otitis media with effusion H65.93 [place] [id number] [place] [address] 85468- 0416 Dec, [facility] [id number] [place] [address] 27672- 9685 Dec, Primary insomnia F51.01 and Anxiety, generalized F41.1 [facility] [id number] [place] [address] 23946- 2523 25 Nov, 2016 [place] [address] 04003- 3281 15 Nov, 2016 [facility] [id number] [place] [address] 91451- 5453 13 Nov, 2016 Anxiety, generalized F41.1 [place] [id number] [place] [address] 12540- 9871 12 Nov, 2016 Pernicious anemia D51.0 [place] [id number] [place] [address] 96074- 5760 Nov, Primary insomnia F51.01 [place] [id number] [place] [address] 68941- 1961 Nov, Encounter for well woman exam with routine gynecological exam Z01.419 ; Screening breast examination Z12.31 and Otalgia of left ear H92.02 [place] [id number] [place] [address] 69117- 3845 15 Oct, 2016 [facility] [id number] [place] [address] 80561 -2704 14 Oct, 2016 Insect bite (nonvenomous) of right upper arm, initial encounter S40.861A [place] [id number] [place] [address] 33118- 7997 Oct, Pernicious anemia D51.0 [place] [id number] [place] [address] 97973- 1801 07 Oct, 2016 Anxiety, generalized F41.1 and Pernicious anemia D51.0 [place] [id number] [place] [address] 45256- 7067 Oct, Encounter to establish care with new doctor Z76.89 ; Moderate episode of recurrent major depressive disorder F33.1 ; Empty sella syndrome E23.6 ; Seasonal allergic rhinitis, unspecified allergic rhinitis trigger J30.2 ; Essential hypertension I10 and Osteoarthritis of spine with radiculopathy, lumbosacral region M47.27 [facility] [id number] [place] [address] 55713- 8602 Aug, [facility] [address] 99348- 8297 Aug, [place] [address] 80635- 3249 Aug, Anxiety, generalized F41.1 [place] [address] 16123- 1502 Aug, [place] [address] 23127- 6598 Aug, Primary insomnia F51.01 ; Essential hypertension I10 ; Empty sella syndrome E23.6 and Chronic pain due to trauma G89.21 [place] [address] 29504- 9471 July, Primary insomnia F51.01 [facility] [id number] [place] [address] 97616 -5973 July, Seasonal allergic rhinitis, unspecified allergic rhinitis trigger J30.2 and Acute suppurative otitis media of right ear without spontaneous rupture of tympanic membrane, recurrence not specified H66.001 [facility] [id number] [place] [address] 58610 -2462 July, Acute suppurative otitis media of left ear without spontaneous rupture of tympanic membrane, recurrence not specified H66.002 [facility] [id number] [place] [address] 32149- 3559 July, [facility] [address] 89347- 7451 July, Anxiety, generalized F41.1 [facility] [id number] [place] [address] 11069- 0321 Jun, [facility] [id number] [place] [address] 03117- 8953 Jun, Primary insomnia F51.01 [facility] [id number] [place] [address] 91480- 0007 Jun, Empty sella syndrome E23.6 ; Primary insomnia F51.01 and Hypokalemia E87.6 [facility] [id number] [place] [address] 16858- 2054 Jun, [facility] [id number] [place] [address] 89383- 7584 Jun, [facility] [id number] [place] [address] 84273- 3335 Jun, Empty sella syndrome E23.6 [facility] [id number] [place] [address] 14949- 4734 Jun, Anxiety, generalized F41.1 [facility] [id number] [place] [address] 80291- 6422 Jun, [facility] [id number] [place] [address] 37004- 5955 Jun, Empty sella syndrome E23.6 [facility] [id number] [place] [address] 70635- 7838 May, [facility] [id number] [place] [address] 79261- 9370 May, [facility] [id number] [place] [address] 76800- 9511 May, Empty sella syndrome E23.6 [facility] [id number] [place] [address] 14612- 9424 May, [facility] [id number] [place] [address] 89856- 7963 24 May, 2016 [place] [address] 36087- 0450 May, Primary insomnia F51.01 [facility] [id number] [place] [address] 61635- 9330 22 May, 2016 [place] [address] 00503- 5219 20 May, 2016 Nausea R11.0 ; Other headache syndrome G44.89 and Malignant hypertension I10 [place] [address] 21396- 1279 07 May, 2016 Anxiety, generalized F41.1 [place] [id number] [place] [address] 25072- 1245 28 Apr, 2016 Major depressive disorder, recurrent episode, moderate F33.1 [place] [id number] [place] [address] 68673- 6015 28 Apr, 2016 Moderate episode of recurrent major depressive disorder F33.1 [place] [id number] [place] [address] 13809- 4683 27 Apr, 2016 Other chronic postprocedural pain G89.28 [place] [id number] [place] [address] 61684- 9529 15 Apr, 2016 Major depressive disorder, recurrent episode, moderate F33.1 [place] [id number] [place] [address] 88208- 2489 07 Apr, 2016 Anxiety, generalized F41.1 [place] [id number] [place] [address] 11132- 9480 03 Apr, 2016 [facility] [id number] [place] [address] 99386- 7589 Mar, Other chronic postprocedural pain G89.28 ; Status post craniotomy Z98.890 ; Encounter for drug screening Z02.83 and Hematuria R31.9 [place] [id number] [place] [address] 15930- 5237 Mar, Major depressive disorder, recurrent episode, moderate F33.1 [place] [id number] [place] [address] 38403- 5782 Mar, [place] [id number] [place] [address] 88131- 1106 Mar, Anxiety, generalized F41.1 [place] [id number] [place] [address] 20069- 7366 Mar, Anxiety, generalized F41.1 and Pernicious anemia D51.[address] 41827- 7325 Mar, 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 and Status post craniotomy Z98.[address] 94716- 2948 Mar, Primary insomnia F51.01 [place] [id number] [place] [address] 40496- 2880 Feb, [address] 20339- 8464 Feb, Encounter to establish care Z76.89 ; Status post craniotomy Z98.890 ; 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
--- OUTSIDE RECORDS SUMMARY | 2017-12-25 03:08 | XMS REPORT ---
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 Name Role Phone OSBALDO CORRAL Unavailable PROBLEMS Type Condition ICD9-CM Code GFZ51-QD Code Onset Dates Condition Status SNOMED Code Problem Anxiety, generalized F41.1 Active 80498891 Problem Essential hypertension I10 Active 20099804 Problem Major depressive disorder, recurrent episode, moderate F33.1 Active 784156345 Problem Abnormal laboratory test R89.9 Active 019588317 Problem Vitamin B12 deficiency anemia due to intrinsic factor deficiency D51.0 Active 21467602 Problem Seasonal allergic rhinitis, unspecified allergic rhinitis trigger J30.2 Active 184058754 Problem Chronic pain due to trauma G89.21 Active 502548547 Problem Migraine without status migrainosus, not intractable, unspecified migraine type G43.909 Active 70491034 Problem Adjustment disorder with mixed anxiety and depressed mood F43.23 Active 95153388 Problem Elevated serum creatinine R79.89 Active 553528797 Problem 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 Active 65659796 Problem Pernicious anemia D51.0 Active 82512929 Problem Hypokalemia E87.6 Active 17060333 Problem Other hyperlipidemia E78.4 Active 69240898 Problem Empty sella syndrome E23.6 Active 678494553 Problem Primary insomnia F51.01 Active 6299313 ALLERGIES No Information ENCOUNTERS Encounter Location Date Diagnosis [facility] [address] [id number] [address] Nov, Chronic pain due to trauma G89.21 and Anxiety, generalized F41.1 [facility] [address] [id number] [address] Oct, [facility] [address] [id number] [address] Oct, Abnormal laboratory test R89.9 [facility] [id number] [place] [address] 54518- 7924 Oct, [facility] [id number] [place] [address] 80111- 7102 Oct, [facility] [id number] [place] [address] 20481- 9685 Oct, Essential hypertension I10 [facility] [id number] [place] [address] 41826- 7861 Oct, [facility] [id number] [place] [address] 35726- 7620 Oct, [facility] [id number] [place] [address] 56236- 9033 Oct, Essential hypertension I10 ; Chronic nausea R11.0 ; Hypokalemia E87.6 ; Abnormal thyroid stimulating hormone (TSH) level R79.89 and Recurrent acute suppurative otitis media without spontaneous rupture of left tympanic membrane H66.005 [facility] [id number] [place] [address] 91754- 7247 Oct, [facility] [id number] [place] [address] 24295- 8013 Oct, Chronic pain due to trauma G89.21 and Anxiety, generalized F41.1 [facility] [id number] [place] [address] 21428- 1800 Oct, [facility] [id number] [place] [address] 31880- 7878 Sep, Anxiety, generalized F41.1 and Chronic pain due to trauma G89.21 [facility] [id number] [place] [address] 92102- 5085 Sep, [facility] [id number] [place] [address] 98629- 3557 Sep, Otalgia of left ear H92.02 and Low pressure hydrocephalus G91.2 [place] [id number] [place] [address] 54277- 6159 Sep, [place] [address] 59312- 8930 Aug, Essential hypertension I10 ; 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 ; Empty sella syndrome E23.6 ; Pernicious anemia D51.0 ; Anxiety , generalized F41.1 ; Major depressive disorder, recurrent episode, moderate F33.1 ; Primary insomnia F51.01 ; Hypokalemia E87.6 and Chronic pain due to trauma G89.21 [place] [id number] [place] [address] 54482- 7611 Aug, [place] [address] 96368- 5844 Aug, Anxiety, generalized F41.1 and Osteoarthritis of spine with radiculopathy, lumbosacral region M47.27 [place] [id number] [place] [address] 66748- 6074 Aug, [place] [id number] [place] [address] 77588- 3200 Aug, Primary insomnia F51.01 [place] [id number] [place] [address] 18655- 3085 July, Anxiety, generalized F41.1 and Osteoarthritis of spine with radiculopathy, lumbosacral region M47.27 [place] [id number] [place] [address] 00076- 3633 July, Essential hypertension I10 [place] [id number] [place] [address] 27094- 2288 July, Major depressive disorder, recurrent episode, moderate F33.1 [place] [id number] [place] [address] 24598- 3763 July, Primary insomnia F51.01 [place] [id number] [place] [address] 59764- 6500 Jun, Anxiety, generalized F41.1 and Osteoarthritis of spine with radiculopathy, lumbosacral region M47.27 [facility]ALK [facility] [address] [phone] Jun, Acute frontal sinusitis, recurrence not specified J01.10 ; Sinus pressure J34.89 ; Post-nasal drip R09.82 and Sore throat J02.9 [place] [address] 47986- 1780 Jun, Primary insomnia F51.01 [place] [address] 47309- 7610 May, Anxiety, generalized F41.1 and Osteoarthritis of spine with radiculopathy, lumbosacral region M47.27 [place] [address] 43089- 1206 May, Essential hypertension I10 ; Colloid cyst of third ventricle Q04.6 ; Empty sella syndrome E23.6 ; Pernicious anemia D51.0 ; Major depressive disorder, recurrent episode, moderate F33.1 ; Primary insomnia F51.01 ; Other hyperlipidemia E78.4 and Anxiety, generalized F41.1 [place] [id number] [place] [address] 11836- 4949 May, Vitamin B12 deficiency anemia due to intrinsic factor deficiency D51.0 and Pernicious anemia D51.0 [facility] [id number] [place] [address] 05485 -6300 May, Migraine without status migrainosus, not intractable, unspecified migraine type G43.909 [place] [address] 73529- 8017 May, [place] [address] 73286- 2679 May, [place] [id number]- 7788 May, Osteoarthritis of spine with radiculopathy, lumbosacral region M47.27 and Primary insomnia F51.01 [place] [address] 67960- 4769 May, Osteoarthritis of spine with radiculopathy, lumbosacral region M47.27 and Anxiety, generalized F41.1 [place] [address] 87540- 0080 May, [place] [address] 45991- 3820 Apr, [place] [address] 89402- 5738 Apr, [place] [address] 61143- 8438 Apr, Anxiety, generalized F41.1 ; Major depressive disorder, recurrent episode, moderate F33.1 ; Moderate episode of recurrent major depressive disorder F33.1 and Adjustment disorder with mixed anxiety and depressed mood F43.23 [place] [address] 12606- 8867 Apr, Major depressive disorder, recurrent episode, moderate F33.1 ; Anxiety, generalized F41.1 ; Essential hypertension I10 ; Primary insomnia F51.01 and Colloid cyst of third ventricle Q04.6 [place] [address] 09104- 2707 Apr, Other chest pain R07.89 ; Sinus bradycardia R00.1 ; Essential hypertension I10 and Other hyperlipidemia E78.4 [place] [address] 04535- 9901 Apr, Primary insomnia F51.01 [place] [address] 47354- 3753 Apr, [place] [address] 22954- 3069 Apr, Anxiety, generalized F41.1 [place] [id number] [place] [address] 75810- 9582 Apr, Osteoarthritis of spine with radiculopathy, lumbosacral region M47.27 [place] [id number] [place] [address] 25713- 7796 Mar, Intractable migraine without aura and without status migrainosus G43.019 and Dyshidrotic hand dermatitis L30.1 [facility] WALK IN [place] [address] 47983 -0376 Mar, Skin infection L08.9 [place] [address] 75604- 9892 Mar, [facility] WALK IN [place] [address] 49513 -4898 Mar, Skin lesion L98.9 [place] [address] 18803- 6495 Mar, Primary insomnia F51.01 and Anxiety, generalized F41.1 [place] [address] 37811- 6787 Mar, Osteoarthritis of spine with radiculopathy, lumbosacral region M47.27 [place] [id number] [place] [address] 63221- 2277 Feb, [place] [address] 90957- 5367 Feb, [place] [address] 04954- 9569 Feb, Hypokalemia E87.6 [place] [id number] [place] [address] 75915- 8703 Feb, Intractable migraine without aura and without status migrainosus G43.019 and Other chest pain R07.89 [place] [id number] [place] [address] 87480- 0622 14 Feb, 2017 [place] [address] 34702- 6266 Feb, Osteoarthritis of spine with radiculopathy, lumbosacral region M47.27 [place] [id number] [place] [address] 58912- 1825 Feb, Hypokalemia E87.6 [place] [id number] [place] [address] 40581- 5811 08 Feb, 2017 [place] [address] 02586- 6262 Feb, Primary insomnia F51.01 and Anxiety, generalized F41.1 [facility]ALK [facility] [place] [id number] [place] [address] 94125 -6141 Feb, Acute suppurative otitis media of both ears without spontaneous rupture of tympanic membranes, recurrence not specified H66.003 [place] [id number] [place] [address] 72549- 7926 Feb, [place] [id number] [place] [address] 22993- 9635 Jan, Osteoarthritis of spine with radiculopathy, lumbosacral region M47.27 [place] [id number] [place] [address] 62137- 2988 Jan, Primary insomnia F51.01 and Anxiety, generalized F41.1 [place] [id number] [place] [address] 80294- 1740 02 Jan, 2017 Chronic pain due to trauma G89.21 ; Left otitis media with effusion H65.92 and Otalgia of left ear H92.02 [facility] [id number] [place] [address] 94643 -4797 Jan, Bilateral otitis media with effusion H65.93 [place] [id number] [place] [address] 67120- 2580 Dec, [facility] [id number] [place] [address] 16773- 7393 Dec, Primary insomnia F51.01 and Anxiety, generalized F41.1 [facility] [id number] [place] [address] 40779- 9103 25 Nov, 2016 [place] [address] 22732- 5719 15 Nov, 2016 [facility] [id number] [place] [address] 26697- 3791 13 Nov, 2016 Anxiety, generalized F41.1 [place] [id number] [place] [address] 40001- 0833 12 Nov, 2016 Pernicious anemia D51.0 [place] [id number] [place] [address] 23530- 3488 Nov, Primary insomnia F51.01 [place] [id number] [place] [address] 48006- 2226 Nov, Encounter for well woman exam with routine gynecological exam Z01.419 ; Screening breast examination Z12.31 and Otalgia of left ear H92.02 [place] [id number] [place] [address] 70767- 3470 15 Oct, 2016 [facility] [id number] [place] [address] 98934 -1056 14 Oct, 2016 Insect bite (nonvenomous) of right upper arm, initial encounter S40.861A [place] [id number] [place] [address] 43587- 2226 Oct, Pernicious anemia D51.0 [place] [id number] [place] [address] 25408- 4627 07 Oct, 2016 Anxiety, generalized F41.1 and Pernicious anemia D51.0 [place] [id number] [place] [address] 60239- 8499 Oct, Encounter to establish care with new doctor Z76.89 ; Moderate episode of recurrent major depressive disorder F33.1 ; Empty sella syndrome E23.6 ; Seasonal allergic rhinitis, unspecified allergic rhinitis trigger J30.2 ; Essential hypertension I10 and Osteoarthritis of spine with radiculopathy, lumbosacral region M47.27 [facility] [id number] [place] [address] 20805- 3404 Aug, [facility] [address] 05473- 6953 Aug, [place] [address] 42341- 8191 Aug, Anxiety, generalized F41.1 [place] [address] 56946- 2074 Aug, [place] [address] 06197- 8827 Aug, Primary insomnia F51.01 ; Essential hypertension I10 ; Empty sella syndrome E23.6 and Chronic pain due to trauma G89.21 [place] [address] 77507- 9345 July, Primary insomnia F51.01 [facility] [id number] [place] [address] 68605 -3330 July, Seasonal allergic rhinitis, unspecified allergic rhinitis trigger J30.2 and Acute suppurative otitis media of right ear without spontaneous rupture of tympanic membrane, recurrence not specified H66.001 [facility] [id number] [place] [address] 20343 -2728 July, Acute suppurative otitis media of left ear without spontaneous rupture of tympanic membrane, recurrence not specified H66.002 [facility] [id number] [place] [address] 24058- 0895 July, [facility] [address] 81580- 8912 July, Anxiety, generalized F41.1 [facility] [id number] [place] [address] 50689- 0242 Jun, [facility] [id number] [place] [address] 22724- 8403 Jun, Primary insomnia F51.01 [facility] [id number] [place] [address] 47492- 6876 Jun, Empty sella syndrome E23.6 ; Primary insomnia F51.01 and Hypokalemia E87.6 [facility] [id number] [place] [address] 48514- 1316 Jun, [facility] [id number] [place] [address] 93357- 0893 Jun, [facility] [id number] [place] [address] 85627- 4053 Jun, Empty sella syndrome E23.6 [facility] [id number] [place] [address] 44648- 6241 Jun, Anxiety, generalized F41.1 [facility] [id number] [place] [address] 56890- 7797 Jun, [facility] [id number] [place] [address] 73045- 1562 Jun, Empty sella syndrome E23.6 [facility] [id number] [place] [address] 19046- 2760 May, [facility] [id number] [place] [address] 00950- 8384 May, [facility] [id number] [place] [address] 18778- 3082 May, Empty sella syndrome E23.6 [facility] [id number] [place] [address] 96422- 8923 May, [facility] [id number] [place] [address] 85030- 7695 24 May, 2016 [place] [address] 85334- 9594 May, Primary insomnia F51.01 [facility] [id number] [place] [address] 33408- 1824 22 May, 2016 [place] [address] 43723- 3187 20 May, 2016 Nausea R11.0 ; Other headache syndrome G44.89 and Malignant hypertension I10 [place] [address] 37062- 7079 07 May, 2016 Anxiety, generalized F41.1 [place] [id number] [place] [address] 79994- 3339 28 Apr, 2016 Major depressive disorder, recurrent episode, moderate F33.1 [place] [id number] [place] [address] 94429- 6533 28 Apr, 2016 Moderate episode of recurrent major depressive disorder F33.1 [place] [address] [id number] [place] [address] 70237- 0892 27 Apr, 2016 Other chronic postprocedural pain G89.28 [place] [address] [id number] [place] [address] 08556- 8970 15 Apr, 2016 Major depressive disorder, recurrent episode, moderate F33.1 [place] [id number] [place] [address] 00444- 3045 07 Apr, 2016 Anxiety, generalized F41.1 [place] [address] [id number] [place] [address] 44376- 1254 03 Apr, 2016 [facility] [id number] [place] [address] 50568- 1079 Mar, Other chronic postprocedural pain G89.28 ; Status post craniotomy Z98.890 ; Encounter for drug screening Z02.83 and Hematuria R31.[address] [place] [address] 24247- 4093 Mar, Major depressive disorder, recurrent episode, moderate F33.1 [place] [id number] [place] [address] 75261- 8569 Mar, [place] [id number] [place] [address] 72336- 2718 Mar, Anxiety, generalized F41.[address] 48261- 0766 Mar, Anxiety, generalized F41.1 and Pernicious anemia D51.0 [place] [id number] [place] [address] 02485- 5823 Mar, Colloid cyst of third ventricle 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 and Status post craniotomy Z98.[address] 78570- 7381 Mar, Primary insomnia F51.01 [place] [id number] [place] [address] 22945- 2328 Feb, [place] [id number] [place] [address] 77685- 9785 Feb, Encounter to establish care Z76.89 ; Status post craniotomy Z98.890 ; Colloid cyst of third ventricle 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.6 ; Hypokalemia E87.6 ; Essential hypertension I10 ; Other hyperlipidemia E78.4 ; Pernicious anemia D51.0 ; Other depression F32.89 and Chronic nausea R11.0 IMMUNIZATIONS No Known Immunizations SOCIAL HISTORY Never Assessed REASON FOR VISIT ER follow up note PLAN OF CARE VITAL SIGNS MEDICATIONS Medication Instructions Dosage Frequency Start Date End Date Duration Status Lisinopril 40 MG Orally Once a day 1 tablet 24h Active Vitamin D 400 UNIT Orally Once a day 2 capsules 24h Active Ambien 10 mg Orally Once a day 1 tablet at bedtime as needed 24h Mar, Active Cyanocobalamin 1000 MCG/ML INJECT 1 ML INTRAMUSCULARLY ONCE MONTHLY 28 Active BD Syringe/Needle 23GX1 For use with injectable B12 Active Metoprolol Tartrate 25 MG Oral Twice a day 1/2 tablet 12h Aug, Active Tylenol Active Tizanidine HCl 4 MG TAKE ONE TABLET BY MOUTH THREE TIMES DAILY NEEDED Active Temazepam 15 mg Orally Once a day 1 capsule at bedtime as needed 24h Sep 30 days Active Chlorthalidone 25 MG Orally Once a day 1/2 tablet 24h Feb, Not-Taking Amlodipine Besylate 5 MG Orally Once a day 1 tablet 24h Feb, Not-Taking Potassium Chloride Jaycee ER 10 MEQ TAKE ONE TABLET BY MOUTH ONCE DAILY WITH FOOD Active Folic Acid 400 MCG Orally Once a day 1 tablet 24h Active Oxycodone-Acetaminophen 7.5-325 MG Orally 3 times a day 1 tablet as needed 8h Oct, 28 days Active Flonase 50 MCG/ACT Nasally Once a day 1 spray in each nostril 24h Jun, 30 day(s) Active BD Syringe/Needle 23GX1 For use with injectable B12 90 days Active Xanax 0.5 MG Orally Three times a day 1 tablet 8h 28 days Active Pravastatin Sodium 80 MG TAKE ONE TABLET BY MOUTH ONCE DAILY Active Ibuprofen 200 mg Orally Once a day 1 tablet with food or milk as needed 24h Active Duloxetine HCl 30 MG Orally Once a day in the AM 1 capsule 30 Active RESULTS No Results PROCEDURES No Known [...] Hospitalization History surgery only Hospitalization History [facility] heart 02/2017
--- OUTSIDE RECORDS SUMMARY | 2017-12-25 03:09 | XMS REPORT ---
Author Author OSBALDO CORRAL Organization [facility] Address [address] [place] [address] Care Team Providers Care Flux Tube Attendant Name Role Phone OSBALDO CORRAL Unavailable PROBLEMS Type Condition ICD9-CM Code CLV95-HY Code Onset Dates Condition Status SNOMED Code Problem Anxiety, generalized F41.1 Active 07696558 Problem Essential hypertension I10 Active 60152151 Problem Major depressive disorder, recurrent episode, moderate F33.1 Active 582856804 Problem Abnormal laboratory test R89.9 Active 277941355 Problem Vitamin B12 deficiency anemia due to intrinsic factor deficiency D51.0 Active 59891477 Problem Seasonal allergic rhinitis, unspecified allergic rhinitis trigger J30.2 Active 261615396 Problem Chronic pain due to trauma G89.21 Active 985120351 Problem Migraine without status migrainosus, not intractable, unspecified migraine type G43.909 Active 84978005 Problem Adjustment disorder with mixed anxiety and depressed mood F43.23 Active 00826771 Problem Elevated serum creatinine R79.89 Active 614182729 Problem 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 Active 02262417 Problem Pernicious anemia D51.0 Active 48901443 Problem Hypokalemia E87.6 Active 27397518 Problem Other hyperlipidemia E78.4 Active 77236400 Problem Empty sella syndrome E23.6 Active 963557534 Problem Primary insomnia F51.01 Active 1193440 ALLERGIES No Information ENCOUNTERS Encounter Location Date Diagnosis [facility] [address] [facility] [id number] [address] Nov, Chronic pain due to trauma G89.21 and Anxiety, generalized F41.1 [facility] [address] [id number] [address] Oct, [facility] [address] [id number] [address] Oct, Abnormal laboratory test R89.9 [facility] [id number] [place] [address] 67009- 0449 Oct, [facility] [id number] [place] [address] 75390- 1342 Oct, [facility] [id number] [place] [address] 85293- 1486 Oct, Essential hypertension I10 [facility] [id number] [place] [address] 27412- 4094 Oct, [facility] [id number] [place] [address] 49852- 6789 Oct, [facility] [id number] [place] [address] 15777- 9760 Oct, Essential hypertension I10 ; Chronic nausea R11.0 ; Hypokalemia E87.6 ; Abnormal thyroid stimulating hormone (TSH) level R79.89 and Recurrent acute suppurative otitis media without spontaneous rupture of left tympanic membrane H66.005 [facility] [id number] [place] [address] 54040- 8695 Oct, [facility] [id number] [place] [address] 46321- 8305 Oct, Chronic pain due to trauma G89.21 and Anxiety, generalized F41.1 [facility] [id number] [place] [address] 43055- 5601 Oct, [facility] [id number] [place] [address] 63351- 9155 Sep, Anxiety, generalized F41.1 and Chronic pain due to trauma G89.21 [facility] [id number] [place] [address] 27609- 2132 Sep, [facility] [id number] [place] [address] 60262- 8441 Sep, Otalgia of left ear H92.02 and Low pressure hydrocephalus G91.2 [place] [id number] [place] [address] 12051- 8958 Sep, [place] [address] 08333- 1172 Aug, Essential hypertension I10 ; Colloid cyst of third ventricle 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.6 ; Empty sella syndrome E23.6 ; Pernicious anemia D51.0 ; Anxiety , generalized F41.1 ; Major depressive disorder, recurrent episode, moderate F33.1 ; Primary insomnia F51.01 ; Hypokalemia E87.6 and Chronic pain due to trauma G89.21 [place] [id number] [place] [address] 59831- 3974 Aug, [place] [address] 50194- 6265 Aug, Anxiety, generalized F41.1 and Osteoarthritis of spine with radiculopathy, lumbosacral region M47.27 [place] [id number] [place] [address] 86492- 8383 Aug, [place] [id number] [place] [address] 80830- 4399 Aug, Primary insomnia F51.01 [place] [id number] [place] [address] 02894- 1981 July, Anxiety, generalized F41.1 and Osteoarthritis of spine with radiculopathy, lumbosacral region M47.27 [place] [id number] [place] [address] 17831- 3562 July, Essential hypertension I10 [place] [id number] [place] [address] 48275- 9190 July, Major depressive disorder, recurrent episode, moderate F33.1 [place] [id number] [place] [address] 67987- 4154 July, Primary insomnia F51.01 [place] [id number] [place] [address] 62467- 7758 Jun, Anxiety, generalized F41.1 and Osteoarthritis of spine with radiculopathy, lumbosacral region M47.27 [facility] IN [facility] [address] [id number] -[address]71 Jun, Acute frontal sinusitis, recurrence not specified J01.10 ; Sinus pressure J34.89 ; Post-nasal drip R09.82 and Sore throat J02.9 [place] [address] 84616- 8254 Jun, Primary insomnia F51.01 [place] [address] 66762- 6328 May, Anxiety, generalized F41.1 and Osteoarthritis of spine with radiculopathy, lumbosacral region M47.27 [place] [address] 29467- 4768 May, Essential hypertension I10 ; Colloid cyst of third ventricle Q04.6 ; Empty sella syndrome E23.6 ; Pernicious anemia D51.0 ; Major depressive disorder, recurrent episode, moderate F33.1 ; Primary insomnia F51.01 ; Other hyperlipidemia E78.4 and Anxiety, generalized F41.1 [place] [id number] [place] [address] 70957- 8966 May, Vitamin B12 deficiency anemia due to intrinsic factor deficiency D51.0 and Pernicious anemia D51.0 [facility] [id number] [place] [address] 09830 -6613 May, Migraine without status migrainosus, not intractable, unspecified migraine type G43.909 [place] [address] 25685- 7753 May, [place] [address] 44165- 8750 May, [place] [address] [id number]- 6955 May, Osteoarthritis of spine with radiculopathy, lumbosacral region M47.27 and Primary insomnia F51.01 [place] [address] 34268- 1930 May, Osteoarthritis of spine with radiculopathy, lumbosacral region M47.27 and Anxiety, generalized F41.1 [place] [address] 57473- 0493 May, [place] [address] 33407- 7150 Apr, [place] [address] 87001- 0188 Apr, [place] [address] 44495- 4490 Apr, Anxiety, generalized F41.1 ; Major depressive disorder, recurrent episode, moderate F33.1 ; Moderate episode of recurrent major depressive disorder F33.1 and Adjustment disorder with mixed anxiety and depressed mood F43.23 [place] [address] 63503- 4741 Apr, Major depressive disorder, recurrent episode, moderate F33.1 ; Anxiety, generalized F41.1 ; Essential hypertension I10 ; Primary insomnia F51.01 and Colloid cyst of third ventricle Q04.6 [place] [address] 52903- 2054 Apr, Other chest pain R07.89 ; Sinus bradycardia R00.1 ; Essential hypertension I10 and Other hyperlipidemia E78.4 [place] [address] 74431- 7198 Apr, Primary insomnia F51.01 [place] [address] 72303- 6075 Apr, [place] [address] 99009- 3664 Apr, Anxiety, generalized F41.1 [place] [id number] [place] [address] 74159- 3093 Apr, Osteoarthritis of spine with radiculopathy, lumbosacral region M47.27 [place] [id number] [place] [address] 92062- 0241 Mar, Intractable migraine without aura and without status migrainosus G43.019 and Dyshidrotic hand dermatitis L30.1 [facility]ALK IN [place] [address] 83418 -9201 Mar, Skin infection L08.9 [place] [address] 86578- 9985 Mar, [facility] IN [place] [address] 45337 -7267 Mar, Skin lesion L98.9 [place] [address] 01858- 2067 Mar, Primary insomnia F51.01 and Anxiety, generalized F41.1 [place] [address] 69724- 4297 Mar, Osteoarthritis of spine with radiculopathy, lumbosacral region M47.27 [place] [id number] [place] [address] 48664- 2411 Feb, [place] [address] 98725- 3003 Feb, [place] [address] 03944- 4543 Feb, Hypokalemia E87.6 [place] [id number] [place] [address] 75160- 0737 Feb, Intractable migraine without aura and without status migrainosus G43.019 and Other chest pain R07.89 [place] [id number] [place] [address] 34847- 1442 14 Feb, 2017 [place] [address] 25986- 8561 Feb, Osteoarthritis of spine with radiculopathy, lumbosacral region M47.27 [place] [id number] [place] [address] 98180- 1653 Feb, Hypokalemia E87.6 [place] [id number] [place] [address] 51342- 4323 08 Feb, 2017 [place] [address] 58044- 5759 Feb, Primary insomnia F51.01 and Anxiety, generalized F41.1 [facility] [place] [id number] [place] [address] 71763 -6631 Feb, Acute suppurative otitis media of both ears without spontaneous rupture of tympanic membranes, recurrence not specified H66.003 [place] [id number] [place] [address] 68608- 7190 Feb, [place] [id number] [place] [address] 55693- 0360 Jan, Osteoarthritis of spine with radiculopathy, lumbosacral region M47.27 [place] [id number] [place] [address] 95623- 5213 Jan, Primary insomnia F51.01 and Anxiety, generalized F41.1 [place] [id number] [place] [address] 87450- 1027 02 Jan, 2017 Chronic pain due to trauma G89.21 ; Left otitis media with effusion H65.92 and Otalgia of left ear H92.02 [facility] [id number] [place] [address] 03468 -8262 Jan, Bilateral otitis media with effusion H65.93 [place] [id number] [place] [address] 48935- 8301 Dec, [facility] [id number] [place] [address] 10327- 9270 Dec, Primary insomnia F51.01 and Anxiety, generalized F41.1 [facility] [id number] [place] [address] 19351- 5811 25 Nov, 2016 [place] [address] 56986- 0527 15 Nov, 2016 [facility] [id number] [place] [address] 17023- 0527 13 Nov, 2016 Anxiety, generalized F41.1 [place] [id number] [place] [address] 20734- 3827 12 Nov, 2016 Pernicious anemia D51.0 [place] [id number] [place] [address] 21523- 2062 Nov, Primary insomnia F51.01 [place] [id number] [place] [address] 59545- 9679 Nov, Encounter for well woman exam with routine gynecological exam Z01.419 ; Screening breast examination Z12.31 and Otalgia of left ear H92.02 [place] [id number] [place] [address] 43062- 5437 15 Oct, 2016 [facility] [id number] [place] [address] 02897 -4775 14 Oct, 2016 Insect bite (nonvenomous) of right upper arm, initial encounter S40.861A [place] [id number] [place] [address] 05681- 9670 Oct, Pernicious anemia D51.0 [place] [id number] [place] [address] 46146- 6344 07 Oct, 2016 Anxiety, generalized F41.1 and Pernicious anemia D51.0 [place] [id number] [place] [address] 91032- 1376 Oct, Encounter to establish care with new doctor Z76.89 ; Moderate episode of recurrent major depressive disorder F33.1 ; Empty sella syndrome E23.6 ; Seasonal allergic rhinitis, unspecified allergic rhinitis trigger J30.2 ; Essential hypertension I10 and Osteoarthritis of spine with radiculopathy, lumbosacral region M47.27 [facility] [id number] [place] [address] 31356- 6660 Aug, [facility] [address] 31320- 7053 Aug, [place] [address] 43896- 5028 Aug, Anxiety, generalized F41.1 [place] [address] 61424- 8709 Aug, [place] [address] 17021- 4076 Aug, Primary insomnia F51.01 ; Essential hypertension I10 ; Empty sella syndrome E23.6 and Chronic pain due to trauma G89.21 [place] [address] 43567- 5619 July, Primary insomnia F51.01 [facility] [id number] [place] [address] 40372 -2383 July, Seasonal allergic rhinitis, unspecified allergic rhinitis trigger J30.2 and Acute suppurative otitis media of right ear without spontaneous rupture of tympanic membrane, recurrence not specified H66.001 [facility] [id number] [place] [address] 98497 -0268 July, Acute suppurative otitis media of left ear without spontaneous rupture of tympanic membrane, recurrence not specified H66.002 [facility] [id number] [place] [address] 07275- 4825 July, [facility] [address] 49289- 6386 July, Anxiety, generalized F41.1 [facility] [id number] [place] [address] 24623- 6450 Jun, [facility] [id number] [place] [address] 50735- 0578 Jun, Primary insomnia F51.01 [facility] [id number] [place] [address] 71211- 1467 Jun, Empty sella syndrome E23.6 ; Primary insomnia F51.01 and Hypokalemia E87.6 [facility] [id number] [place] [address] 54904- 7356 Jun, [facility] [id number] [place] [address] 99258- 9916 Jun, [facility] [id number] [place] [address] 97963- 3213 Jun, Empty sella syndrome E23.6 [facility] [id number] [place] [address] 42243- 8102 Jun, Anxiety, generalized F41.1 [facility] [id number] [place] [address] 69557- 3319 Jun, [facility] [id number] [place] [address] 50435- 1574 Jun, Empty sella syndrome E23.6 [facility] [id number] [place] [address] 91930- 1031 May, [facility] [id number] [place] [address] 90937- 3746 May, [facility] [id number] [place] [address] 17730- 9527 May, Empty sella syndrome E23.6 [facility] [id number] [place] [address] 09696- 0296 May, [facility] [id number] [place] [address] 36922- 9140 24 May, 2016 [place] [address] 18562- 4042 May, Primary insomnia F51.01 [facility] [id number] [place] [address] 48708- 4049 22 May, 2016 [place] [address] 25628- 2929 20 May, 2016 Nausea R11.0 ; Other headache syndrome G44.89 and Malignant hypertension I10 [place] [address] 26030- 3161 07 May, 2016 Anxiety, generalized F41.1 [place] [id number] [place] [address] 44290- 5951 28 Apr, 2016 Major depressive disorder, recurrent episode, moderate F33.1 [place] [id number] [place] [address] 51383- 1591 28 Apr, 2016 Moderate episode of recurrent major depressive disorder F33.1 [place] [id number] [place] [address] 45650- 6942 27 Apr, 2016 Other chronic postprocedural pain G89.28 [place] [address] [place] [address] 27552- 1466 15 Apr, 2016 Major depressive disorder, recurrent episode, moderate F33.1 [place] [id number] [place] [address] 47001- 3563 07 Apr, 2016 Anxiety, generalized F41.1 [place] [id number] [place] [address] 39779- 9557 03 Apr, 2016 [facility] [id number] [place] [address] 07535- 1415 Mar, Other chronic postprocedural pain G89.28 ; Status post craniotomy Z98.890 ; Encounter for drug screening Z02.83 and Hematuria R31.9 [place] [id number] [place] [address] 98050- 8478 Mar, Major depressive disorder, recurrent episode, moderate F33.1 [place] [id number] [place] [address] 64070- 8581 Mar, [place] [id number] [place] [address] 92950- 3700 Mar, Anxiety, generalized F41.1 [place] [id number] [place] [address] 80317- 5863 Mar, Anxiety, generalized F41.1 and Pernicious anemia D51.0 [place] [id number] [place] [address] 49651- 3663 Mar, Colloid cyst of third ventricle Q04.6 and Status post craniotomy Z98.890 [place] [id number] [place] [address] 06674- 2652 Mar, Primary insomnia F51.01 [place] [id number] [place] [address] 00082- 9147 Feb, [address] 54937- 7677 Feb, Encounter to establish care Z76.89 ; Status post craniotomy Z98.890 ; Colloid cyst of third ventricle Q04.6 ; Hypokalemia E87.6 ; Essential hypertension I10 ; Other hyperlipidemia E78.4 ; Pernicious anemia D51.0 ; Other depression F32.89 and Chronic nausea R11.0 IMMUNIZATIONS No Known Immunizations SOCIAL HISTORY Never Assessed REASON FOR VISIT Controlled med X''s 2, due 11/09 PLAN OF CARE VITAL SIGNS MEDICATIONS Medication Instructions Dosage Frequency Start Date End Date Duration Status Xanax 0.5 MG Orally Three times a day 1 tablet 8h 28 days Active Oxycodone-Acetaminophen 7.5-325 MG Orally 3 times a day 1 tablet as needed 8h Oct, 28 days Active RESULTS No Results PROCEDURES [...]
--- OUTSIDE RECORDS SUMMARY | 2017-12-25 03:09 | XMS REPORT ---
Author Author OSBALDO CORRAL Organization [facility], [place] Address [address] [place] [address] Care Team Providers Care Jewel Setter Name Role Phone OSBALDO CORRAL Unavailable PROBLEMS Type Condition ICD9-CM Code QBX57-MY Code Onset Dates Condition Status SNOMED Code Problem Anxiety, generalized F41.1 Active 22234404 Problem Essential hypertension I10 Active 10707906 Problem Major depressive disorder, recurrent episode, moderate F33.1 Active 502036508 Problem Abnormal laboratory test R89.9 Active 713483567 Problem Vitamin B12 deficiency anemia due to intrinsic factor deficiency D51.0 Active 47119216 Problem Seasonal allergic rhinitis, unspecified allergic rhinitis trigger J30.2 Active 549115328 Problem Chronic pain due to trauma G89.21 Active 149103440 Problem Migraine without status migrainosus, not intractable, unspecified migraine type G43.909 Active 42093804 Problem Adjustment disorder with mixed anxiety and depressed mood F43.23 Active 40336709 Problem Elevated serum creatinine R79.89 Active 682602827 Problem Colloid cyst of third ventricle 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.6 Active 03904665 Problem Pernicious anemia D51.0 Active 92357213 Problem Hypokalemia E87.6 Active 03301398 Problem Other hyperlipidemia E78.4 Active 04107327 Problem Empty sella syndrome E23.6 Active 413980483 Problem Primary insomnia F51.01 Active 8599029 ALLERGIES No Information ENCOUNTERS Encounter Location Date Diagnosis [facility], [place] [address] [facility] [id number] [address] Nov, Chronic pain due to trauma G89.21 and Anxiety, generalized F41.1 [facility] [place] [address] [id number] [address] Oct, [facility] [place] [address] [id number] [address] Oct, Abnormal laboratory test R89.9 [facility] [place] [id number] [place] [address] 44533- 2187 Oct, [facility] [place] [id number] [place] [address] 96655- 3275 Oct, [facility] [place] [id number] [place] [address] 33020- 2760 Oct, Essential hypertension I10 [facility] [place] [id number] [place] [address] 79377- 4750 Oct, [facility] [place] [id number] [place] [address] 03583- 7372 Oct, [facility] [place] [id number] [place] [address] 71399- 9512 Oct, Essential hypertension I10 ; Chronic nausea R11.0 ; Hypokalemia E87.6 ; Abnormal thyroid stimulating hormone (TSH) level R79.89 and Recurrent acute suppurative otitis media without spontaneous rupture of left tympanic membrane H66.005 [facility] [place] [id number] [place] [address] 58349- 1280 Oct, [facility] [place] [id number] [place] [address] 01540- 1711 Oct, Chronic pain due to trauma G89.21 and Anxiety, generalized F41.1 [facility] [place] [id number] [place] [address] 45989- 6151 Oct, [facility] [place] [id number] [place] [address] 53582- 6136 Sep, Anxiety, generalized F41.1 and Chronic pain due to trauma G89.21 [facility] [place] [id number] [place] [address] 63883- 7945 Sep, [facility] [place] [id number] [place] [address] 93326- 6203 Sep, Otalgia of left ear H92.02 and Low pressure hydrocephalus G91.2 [place] [id number] [place] [address] 05088- 9112 Sep, [place] [address] 76333- 8700 Aug, Essential hypertension I10 ; Colloid cyst of third ventricle Q04.6 ; Empty sella syndrome E23.6 ; Pernicious anemia D51.0 ; Anxiety , generalized F41.1 ; Major depressive disorder, recurrent episode, moderate F33.1 ; Primary insomnia F51.01 ; Hypokalemia E87.6 and Chronic pain due to trauma G89.21 [place] [id number] [place] [address] 64055- 3863 Aug, [place] [address] 81275- 9228 Aug, Anxiety, generalized F41.1 and Osteoarthritis of spine with radiculopathy, lumbosacral region M47.27 [place] [id number] [place] [address] 38851- 5696 Aug, [place] [id number] [place] [address] 17741- 8573 Aug, Primary insomnia F51.01 [place] [id number] [place] [address] 51898- 7675 July, Anxiety, generalized F41.1 and Osteoarthritis of spine with radiculopathy, lumbosacral region M47.27 [place] [id number] [place] [address] 84843- 6367 July, Essential hypertension I10 [place] [id number] [place] [address] 51691- 8979 July, Major depressive disorder, recurrent episode, moderate F33.1 [place] [id number] [place] [address] 22734- 6822 July, Primary insomnia F51.01 [place] [id number] [place] [address] 57418- 9745 Jun, Anxiety, generalized F41.1 and Osteoarthritis of spine with radiculopathy, lumbosacral region M47.27 [facility] [address] [phone] Jun, Acute frontal sinusitis, recurrence not specified J01.10 ; Sinus pressure J34.89 ; Post-nasal drip R09.82 and Sore throat J02.9 [place] [address] 36227- 0867 Jun, Primary insomnia F51.01 [place] [address] 90434- 9916 May, Anxiety, generalized F41.1 and Osteoarthritis of spine with radiculopathy, lumbosacral region M47.27 [place] [address] 39439- 4611 May, Essential hypertension I10 ; Colloid cyst of third ventricle Q04.6 ; Empty sella syndrome E23.6 ; Pernicious anemia D51.0 ; Major depressive disorder, recurrent episode, moderate F33.1 ; Primary insomnia F51.01 ; Other hyperlipidemia E78.4 and Anxiety, generalized F41.1 [place] [id number] [place] [address] 71309- 3220 May, Vitamin B12 deficiency anemia due to intrinsic factor deficiency D51.0 and Pernicious anemia D51.0 [facility] [id number] [place] [address] 05140 -8777 May, Migraine without status migrainosus, not intractable, unspecified migraine type G43.909 [place] [address] 61887- 4087 May, [place] [address] 12297- 8847 May, [place] [address] [id number]- 4179 May, Osteoarthritis of spine with radiculopathy, lumbosacral region M47.27 and Primary insomnia F51.01 [place] [address] 17441- 9492 May, Osteoarthritis of spine with radiculopathy, lumbosacral region M47.27 and Anxiety, generalized F41.1 [place] [address] 61233- 9631 May, [place] [address] 37734- 7571 Apr, [place] [address] 61223- 5387 Apr, [place] [address] 89203- 8053 Apr, Anxiety, generalized F41.1 ; Major depressive disorder, recurrent episode, moderate F33.1 ; Moderate episode of recurrent major depressive disorder F33.1 and Adjustment disorder with mixed anxiety and depressed mood F43.23 [place] [address] 61673- 7353 Apr, Major depressive disorder, recurrent episode, moderate F33.1 ; Anxiety, generalized F41.1 ; Essential hypertension I10 ; Primary insomnia F51.01 and Colloid cyst of third ventricle Q04.6 [place] [address] 46951- 2465 Apr, Other chest pain R07.89 ; Sinus bradycardia R00.1 ; Essential hypertension I10 and Other hyperlipidemia E78.4 [place] [address] 39971- 1073 Apr, Primary insomnia F51.01 [place] [address] 95613- 2232 Apr, [place] [address] 29818- 6143 Apr, Anxiety, generalized F41.1 [place] [id number] [place] [address] 43353- 7790 Apr, Osteoarthritis of spine with radiculopathy, lumbosacral region M47.27 [place] [id number] [place] [address] 38745- 9769 Mar, Intractable migraine without aura and without status migrainosus G43.019 and Dyshidrotic hand dermatitis L30.1 [facility] [place] [address] 07458 -7204 Mar, Skin infection L08.9 [place] [address] 95996- 9680 Mar, [facility] [place] [address] 71952 -8933 Mar, Skin lesion L98.9 [place] [address] 55634- 4470 Mar, Primary insomnia F51.01 and Anxiety, generalized F41.1 [place] [address] 13432- 8627 Mar, Osteoarthritis of spine with radiculopathy, lumbosacral region M47.27 [place] [id number] [place] [address] 40924- 7935 Feb, [place] [address] 34276- 7325 Feb, [place] [address] 04606- 0383 Feb, Hypokalemia E87.6 [place] [id number] [place] [address] 54014- 3063 Feb, Intractable migraine without aura and without status migrainosus G43.019 and Other chest pain R07.89 [place] [id number] [place] [address] 67922- 8717 14 Feb, 2017 [place] [address] 96141- 1253 Feb, Osteoarthritis of spine with radiculopathy, lumbosacral region M47.27 [place] [id number] [place] [address] 16929- 1515 Feb, Hypokalemia E87.6 [place] [id number] [place] [address] 01492- 0301 08 Feb, 2017 [place] [address] 40654- 2857 Feb, Primary insomnia F51.01 and Anxiety, generalized F41.1 [facility] [place] [id number] [place] [address] 05890 -7024 Feb, Acute suppurative otitis media of both ears without spontaneous rupture of tympanic membranes, recurrence not specified H66.003 [place] [id number] [place] [address] 83312- 8265 Feb, [place] [id number] [place] [address] 88255- 5051 Jan, Osteoarthritis of spine with radiculopathy, lumbosacral region M47.27 [place] [id number] [place] [address] 93692- 8933 Jan, Primary insomnia F51.01 and Anxiety, generalized F41.1 [place] [id number] [place] [address] 34036- 2798 02 Jan, 2017 Chronic pain due to trauma G89.21 ; Left otitis media with effusion H65.92 and Otalgia of left ear H92.02 [facility] [id number] [place] [address] 46394 -2516 Jan, Bilateral otitis media with effusion H65.93 [place] [id number] [place] [address] 50868- 7643 Dec, [facility] [place] [id number] [place] [address] 45215- 3221 Dec, Primary insomnia F51.01 and Anxiety, generalized F41.1 [facility] [place] [id number] [place] [address] 77131- 8913 25 Nov, 2016 [place] [address] 81123- 3069 15 Nov, 2016 [facility] [place] [id number] [place] [address] 92273- 9583 13 Nov, 2016 Anxiety, generalized F41.1 [place] [id number] [place] [address] 18989- 3454 12 Nov, 2016 Pernicious anemia D51.0 [place] [id number] [place] [address] 86091- 8904 Nov, Primary insomnia F51.01 [place] [id number] [place] [address] 83258- 2140 Nov, Encounter for well woman exam with routine gynecological exam Z01.419 ; Screening breast examination Z12.31 and Otalgia of left ear H92.02 [place] [id number] [place] [address] 21122- 9078 15 Oct, 2016 [facility] [id number] [place] [address] 10674 -7325 14 Oct, 2016 Insect bite (nonvenomous) of right upper arm, initial encounter S40.861A [place] [id number] [place] [address] 73615- 0612 Oct, Pernicious anemia D51.0 [place] [id number] [place] [address] 20220- 8479 07 Oct, 2016 Anxiety, generalized F41.1 and Pernicious anemia D51.0 [place] [id number] [place] [address] 34017- 3236 Oct, Encounter to establish care with new doctor Z76.89 ; Moderate episode of recurrent major depressive disorder F33.1 ; Empty sella syndrome E23.6 ; Seasonal allergic rhinitis, unspecified allergic rhinitis trigger J30.2 ; Essential hypertension I10 and Osteoarthritis of spine with radiculopathy, lumbosacral region M47.27 [facility] [place] [id number] [place] [address] 69220- 8398 Aug, [facility] [place] [address] 04399- 8812 Aug, [place] [address] 42653- 6106 Aug, Anxiety, generalized F41.1 [place] [address] 55894- 9086 Aug, [place] [address] 59639- 8569 Aug, Primary insomnia F51.01 ; Essential hypertension I10 ; Empty sella syndrome E23.6 and Chronic pain due to trauma G89.21 [place] [address] 10567- 0467 July, Primary insomnia F51.01 [facility] [id number] [place] [address] 50888 -0916 July, Seasonal allergic rhinitis, unspecified allergic rhinitis trigger J30.2 and Acute suppurative otitis media of right ear without spontaneous rupture of tympanic membrane, recurrence not specified H66.001 [facility] [id number] [place] [address] 55863 -4476 July, Acute suppurative otitis media of left ear without spontaneous rupture of tympanic membrane, recurrence not specified H66.002 [facility] [place] [id number] [place] [address] 86695- 9889 July, [facility] [place] [address] 16370- 1598 July, Anxiety, generalized F41.1 [facility] [place] [id number] [place] [address] 49514- 4663 Jun, [facility] [place] [id number] [place] [address] 43972- 7588 Jun, Primary insomnia F51.01 [facility] [place] [id number] [place] [address] 43855- 3067 Jun, Empty sella syndrome E23.6 ; Primary insomnia F51.01 and Hypokalemia E87.6 [facility] [place] [id number] [place] [address] 61280- 4867 Jun, [facility] [place] [id number] [place] [address] 28779- 5939 Jun, [facility] [place] [id number] [place] [address] 84992- 3438 Jun, Empty sella syndrome E23.6 [facility] [place] [id number] [place] [address] 60876- 5238 Jun, Anxiety, generalized F41.1 [facility] [place] [id number] [place] [address] 09024- 4397 Jun, [facility] [place] [id number] [place] [address] 70929- 1653 Jun, Empty sella syndrome E23.6 [facility] [place] [id number] [place] [address] 88519- 7386 May, [facility] [place] [id number] [place] [address] 62836- 6164 May, [facility] [place] [id number] [place] [address] 29303- 5721 May, Empty sella syndrome E23.6 [facility] [place] [id number] [place] [address] 32019- 6690 May, [facility] [place] [id number] [place] [address] 98281- 0674 24 May, 2016 [place] [address] 64679- 4381 May, Primary insomnia F51.01 [facility] [place] [id number] [place] [address] 63206- 3518 22 May, 2016 [place] [address] 26445- 2751 20 May, 2016 Nausea R11.0 ; Other headache syndrome G44.89 and Malignant hypertension I10 [place] [address] 77017- 3695 07 May, 2016 Anxiety, generalized F41.1 [place] [id number] [place] [address] 50125- 5790 28 Apr, 2016 Major depressive disorder, recurrent episode, moderate F33.1 [place] [id number] [place] [address] 55498- 4935 28 Apr, 2016 Moderate episode of recurrent major depressive disorder F33.1 [place] [id number] [place] [address] 14334- 2114 27 Apr, 2016 Other chronic postprocedural pain G89.28 [place] [id number] [place] [address] 55191- 5357 15 Apr, 2016 Major depressive disorder, recurrent episode, moderate F33.1 [place] [id number] [place] [address] 28511- 2119 07 Apr, 2016 Anxiety, generalized F41.1 [place] [id number] [place] [address] 46088- 4958 03 Apr, 2016 [facility] [place] [id number] [place] [address] 12680- 8560 Mar, Other chronic postprocedural pain G89.28 ; Status post craniotomy Z98.890 ; Encounter for drug screening Z02.83 and Hematuria R31.9 [place] [id number] [place] [address] 56746- 3155 Mar, Major depressive disorder, recurrent episode, moderate F33.1 [place] [id number] [place] [address] 42203- 6839 Mar, [place] [id number] [place] [address] 19112- 3726 Mar, Anxiety, generalized F41.1 [place] [id number] [place] [address] 93929- 7347 Mar, Anxiety, generalized F41.1 and Pernicious anemia D51.[address] 75364- 8497 Mar, Colloid cyst of third ventricle Q04.6 and Status post craniotomy Z98.[address] 84466- 6700 Mar, Primary insomnia F51.01 [place] [id number] [place] [address] 83630- 9815 Feb, [address] 50095- 7749 Feb, Encounter to establish care Z76.89 ; [...] History surgery only Hospitalization History [facility] 02/2017
--- OUTSIDE RECORDS SUMMARY | 2017-12-25 03:10 | XMS REPORT ---
Author Author CORRALOSBALDO New Organization [facility] Address [address] [place] [address] Care Team Providers Care Wet End Supervisor Name Role Phone OSBALDO CORRAL Unavailable PROBLEMS Type Condition ICD9-CM Code DFD41-PF Code Onset Dates Condition Status SNOMED Code Problem Anxiety, generalized F41.1 Active 55605688 Problem Essential hypertension I10 Active 28602735 Problem Major depressive disorder, recurrent episode, moderate F33.1 Active 495158387 Problem Abnormal laboratory test R89.9 Active 173056285 Problem Vitamin B12 deficiency anemia due to intrinsic factor deficiency D51.0 Active 14218538 Problem Seasonal allergic rhinitis, unspecified allergic rhinitis trigger J30.2 Active 762401183 Problem Chronic pain due to trauma G89.21 Active 336841951 Problem Migraine without status migrainosus, not intractable, unspecified migraine type G43.909 Active 67582483 Problem Adjustment disorder with mixed anxiety and depressed mood F43.23 Active 76720986 Problem Elevated serum creatinine R79.89 Active 235960896 Problem 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 Active 65625323 Problem Pernicious anemia D51.0 Active 17705300 Problem Hypokalemia E87.6 Active 93156959 Problem Other hyperlipidemia E78.4 Active 02086994 Problem Empty sella syndrome E23.6 Active 386979649 Problem Primary insomnia F51.01 Active 1814300 ALLERGIES No Information ENCOUNTERS Encounter Location Date Diagnosis [facility] [address] [facility] [id number] [address] Oct, [facility] [address], [place] [address] Oct, Abnormal laboratory test R89.9 [facility] [address] [id number] [address] Oct, [facility] [address], [place] [address] Oct, [facility] [id number] [place] [address] 44987- 0397 Oct, Essential hypertension I10 [facility] [id number] [place] [address] 03925- 2592 Oct, [facility] [id number] [place] [address] 12408- 3751 Oct, [facility] [id number] [place] [address] 02698- 6227 Oct, Essential hypertension I10 ; Chronic nausea R11.0 ; Hypokalemia E87.6 ; Abnormal thyroid stimulating hormone (TSH) level R79.89 and Recurrent acute suppurative otitis media without spontaneous rupture of left tympanic membrane H66.005 [place] [id number] [place] [address] 29754- 6770 Oct, [facility] [id number] [place] [address] 01434- 0621 Oct, Chronic pain due to trauma G89.21 and Anxiety, generalized F41.1 [place] [id number] [place] [address] 96589- 6082 Oct, [facility] [id number] [place] [address] 09560- 8485 Sep, Anxiety, generalized F41.1 and Chronic pain due to trauma G89.21 [facility] [id number] [place] [address] 48565- 3490 Sep, [facility] [id number] [place] [address] 86754- 0336 Sep, Otalgia of left ear H92.02 and Low pressure hydrocephalus G91.2 [facility] [id number] [place] [address] 36248- 2234 Sep, [facility] [id number] [place] [address] 81578- 4967 Aug, Essential hypertension I10 ; 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 ; Empty sella syndrome E23.6 ; Pernicious anemia D51.0 ; Anxiety , generalized F41.1 ; Major depressive disorder, recurrent episode, moderate F33.1 ; Primary insomnia F51.01 ; Hypokalemia E87.6 and Chronic pain due to trauma G89.21 [facility] [id number] [place] [address] 81422- 5726 Aug, [facility] [id number] [place] [address] 95585- 4080 Aug, Anxiety, generalized F41.1 and Osteoarthritis of spine with radiculopathy, lumbosacral region M47.27 [facility] [id number] [place] [address] 69696- 7827 Aug, [facility] [id number] [place] [address] 58812- 5644 Aug, Primary insomnia F51.01 [facility] [facility] [id number] [place] [address] 14272- 1782 July, Anxiety, generalized F41.1 and Osteoarthritis of spine with radiculopathy, lumbosacral region M47.27 [facility] [id number] [place] [address] 93072- 8694 July, Essential hypertension I10 [facility] [id number] [place] [address] 63218- 6087 July, Major depressive disorder, recurrent episode, moderate F33.1 [place] [id number] [place] [address] 82635- 4747 July, Primary insomnia F51.01 [place] [id number] [place] [address] 76998- 1644 Jun, Anxiety, generalized F41.1 and Osteoarthritis of spine with radiculopathy, lumbosacral region M47.27 [facility] [id number] [place] [address] 93037 -5018 Jun, Acute frontal sinusitis, recurrence not specified J01.10 ; Sinus pressure J34.89 ; Post-nasal drip R09.82 and Sore throat J02.9 [place] [address] 24320- 0047 Jun, Primary insomnia F51.01 [place] [address] 96265- 3906 May, Anxiety, generalized F41.1 and Osteoarthritis of spine with radiculopathy, lumbosacral region M47.27 [place] [address] 96642- 5500 May, Essential hypertension I10 ; 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 [address] [address]19 -[address]405 May, Migraine without status migrainosus, not intractable, unspecified migraine type G43.909 [facility] [id number] [place] [address] 97740- 3292 May, [place] [address] 97061- 0030 May, [place] [address] 88229- 4541 May, Osteoarthritis of spine with radiculopathy, lumbosacral region M47.27 and Primary insomnia F51.01 [place] [address] 40145- 8326 May, Osteoarthritis of spine with radiculopathy, lumbosacral region M47.27 and Anxiety, generalized F41.1 [place] [address] [address]- 9668 May, [facility] [facility] [address] 08551- 6952 Apr, [facility] [address] 894644- 6132 Apr, [facility] [facility] [address] 88818- 8102 Apr, Anxiety, generalized F41.1 ; Major depressive disorder, recurrent episode, moderate F33.1 ; Moderate episode of recurrent major depressive disorder F33.1 and Adjustment disorder with mixed anxiety and depressed mood F43.[address] 6[address]66- 7304 Apr, Major depressive disorder, recurrent episode, moderate F33.1 ; Anxiety, generalized F41.1 ; Essential hypertension I10 ; Primary insomnia F51.01 and Colloid cyst of third ventricle Q04.[address] 89517- 5472 09 Apr, 2017 Other chest pain R07.89 ; Sinus bradycardia R00.1 ; Essential hypertension I10 and Other hyperlipidemia E78.4 [place] [address] 06443- 2838 08 Apr, 2017 Primary insomnia F51.01 [place] [address] 84769- 0605 Apr, [address] 64921- 9273 Apr, Anxiety, generalized F41.[address] 94214- 2043 Apr, Osteoarthritis of spine with radiculopathy, lumbosacral region M47.27 [place] [address] 95724- 4931 Mar, Intractable migraine without aura and without status migrainosus G43.019 and Dyshidrotic hand dermatitis L30.1 [facility] [address] 7[address]97 -5060 Mar, Skin infection L08.9 [place] [address] 30693- 4258 Mar, [facility] [address] 71051 -8523 Mar, Skin lesion L98.9 [place] [address] 33656- 8288 Mar, Primary insomnia F51.01 and Anxiety, generalized F41.1 [place] [address] 85183- 8268 Mar, Osteoarthritis of spine with radiculopathy, lumbosacral region M47.27 [place] [address] 18941- 6487 Feb, [place] [address] 45799- 6785 Feb, [place] [facility] [address] 74197- 9113 Feb, Hypokalemia E87.6 [place] [address] 31003- 7329 Feb, Intractable migraine without aura and without status migrainosus G43.019 and Other chest pain R07.89 [place] [address] 07721- 1815 Feb, [place] [address] 36322- 6934 Feb, Osteoarthritis of spine with radiculopathy, lumbosacral region M47.27 [facility] [facility] [id number] [place] [address] 16110- 0635 Feb, Hypokalemia E87.6 [facility] [id number] [place] [address] 73438- 8247 Feb, [facility] [address] 62487- 5260 Feb, Primary insomnia F51.01 and Anxiety, generalized F41.1 [facility] [id number] [place] [address] 31298 -6916 Feb, Acute suppurative otitis media of both ears without spontaneous rupture of tympanic membranes, recurrence not specified H66.003 [place] [id number] [place] [address] 27706- 4130 Feb, [place] [address] 20199- 1893 Jan, Osteoarthritis of spine with radiculopathy, lumbosacral region M47.27 [facility] [id number] [place] [address] 40184- 2971 Jan, Primary insomnia F51.01 and Anxiety, generalized F41.1 [facility] [facility] [id number] [place] [address] 13074- 9078 Jan, Chronic pain due to trauma G89.21 ; Left otitis media with effusion H65.92 and Otalgia of left ear H92.02 [facility] [id number] [place] [address] 65991 -4594 Jan, Bilateral otitis media with effusion H65.93 [facility] [id number] [place] [address] 56255- 6133 Dec, [facility] [id number] [place] [address] 32961- 7444 Dec, Primary insomnia F51.01 and Anxiety, generalized F41.1 [facility] [address], [place] [address]- 0102 25 Nov, 2016 [facility] [id number] [place] [address] 60740- 6059 15 Nov, 2016 [facility] [id number] [place] [address] 23851- 2834 13 Nov, 2016 Anxiety, generalized F41.1 [facility] [id number] [place] [address] 13971- 8275 12 Nov, 2016 Pernicious anemia D51.0 [facility] [id number] [place] [address] 06762- 6496 11 Nov, 2016 Primary insomnia F51.01 [place] [id number] [place] [address] 77996- 3319 Nov, Encounter for well woman exam with routine gynecological exam Z01.419 ; Screening breast examination Z12.31 and Otalgia of left ear H92.02 [place] [id number] [place] [address] 87157- 9994 Oct, [facility] [id number] [place] [address] 20027 -1379 14 Oct, 2016 Insect bite (nonvenomous) of right upper arm, initial encounter S40.861A [facility] [id number] [place] [address] 04252- 4401 Oct, Pernicious anemia D51.0 [facility] [id number] [place] [address] 33015- 1742 07 Oct, 2016 Anxiety, generalized F41.1 and Pernicious anemia D51.0 [facility] [id number] [place] [address] 26946- 0275 Oct, Encounter to establish care with new doctor Z76.89 ; Moderate episode of recurrent major depressive disorder F33.1 ; Empty sella syndrome E23.6 ; Seasonal allergic rhinitis, unspecified allergic rhinitis trigger J30.2 ; Essential hypertension I10 and Osteoarthritis of spine with radiculopathy, lumbosacral region M47.27 [facility] [id number] [place] [address] 64205- 4538 Aug, [facility] [id number] [place] [address] 65818- 5202 Aug, [place] [address] 79148- 2433 Aug, Anxiety, generalized F41.1 [place] [address] 74375- 9391 Aug, [place] [address] 31714- 7145 Aug, Primary insomnia F51.01 ; Essential hypertension I10 ; Empty sella syndrome E23.6 and Chronic pain due to trauma G89.21 [place] [address] 12581- 5247 July, Primary insomnia F51.01 [facility] [id number] [place] [address] 28543 -2146 July, Seasonal allergic rhinitis, unspecified allergic rhinitis trigger J30.2 and Acute suppurative otitis media of right ear without spontaneous rupture of tympanic membrane, recurrence not specified H66.001 [facility] [id number] [place] [address] 18739 -9116 July, Acute suppurative otitis media of left ear without spontaneous rupture of tympanic membrane, recurrence not specified H66.002 [place] [id number] [place] [address] 45443- 0605 July, [place] [address] 04764- 4399 July, Anxiety, generalized F41.1 [place] [id number] [place] [address] 72078- 9602 Jun, [facility] [id number] [place] [address] 52796- 7223 Jun, Primary insomnia F51.01 [facility] [id number] [place] [address], [place] [address]- 3548 Jun, Empty sella syndrome E23.6 ; Primary insomnia F51.01 and Hypokalemia E87.6 [facility] [id number] [place] [address], [place] [address]- 8780 Jun, [facility] [id number] [place] [address], [place] [address]- 0070 Jun, [facility] [id number] [place] [address], [place] [address]- 8187 Jun, Empty sella syndrome E23.6 [facility] [id number] [place] [address], [place] [address]- 9942 Jun, Anxiety, generalized F41.1 [facility] [id number] [place] [address], [place] [address]- 9766 Jun, [facility] [id number] [place] [address] 45418- 0597 Jun, Empty sella syndrome E23.6 [facility] [id number] [place] [address] 34765- 2583 May, [facility] [id number] [place] [address] 13727- 9612 May, [facility] [id number] [place] [address] 39060- 8096 30 May, 2016 Empty sella syndrome E23.6 [facility] [id number] [place] [address] 27333- 8742 May, [facility] [id number] [place] [address] 62270- 6497 May, [facility] [id number] [place] [address] 31908- 3376 May, Primary insomnia F51.01 [facility] [id number] [place] [address] 10534- 4470 May, [facility] [id number] [place], [place] [address] 4544 May, Nausea R11.0 ; Other headache syndrome G44.89 and Malignant hypertension I10 [facility] [address] 30245- 7401 May, Anxiety, generalized F41.1 [place] [id number] [place] [address] 09080- 9072 Apr, Major depressive disorder, recurrent episode, moderate F33.1 [facility] [facility] [id number] [place] [address] 84151- 2251 Apr, Moderate episode of recurrent major depressive disorder F33.1 [place] [id number] [place] [address] 74668- 2045 Apr, Other chronic postprocedural pain G89.28 [place] [facility] [id number] [place] [address] 45853- 0512 15 Apr, 2016 Major depressive disorder, recurrent episode, moderate F33.1 [facility] [id number] [place] [address] 69625- 7840 07 Apr, 2016 Anxiety, generalized F41.1 [place] [id number] [place] [address] 15307- 3989 Apr, [facility] [id number] [place] [address] 46068- 0169 Mar, Other chronic postprocedural pain G89.28 ; Status post craniotomy Z98.890 ; Encounter for drug screening Z02.83 and Hematuria R31.9 [facility] [id number] [place] [address] 44812- 7220 Mar, Major depressive disorder, recurrent episode, moderate F33.1 [place] [id number] [place] [address] 49471- 8012 Mar, [place] [id number] [place] [address] 24149- 2264 Mar, Anxiety, generalized F41.1 [place] [id number] [place] [address] 94621- 8719 10 Mar, 2016 Anxiety, generalized F41.1 and Pernicious anemia D51.0 [place] [id number] [place] [address] 35209- 5315 Mar, 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
--- OUTSIDE RECORDS SUMMARY | 2017-12-25 03:10 | XMS REPORT ---
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 Name Role Phone OSBALDO CORRAL Unavailable PROBLEMS Type Condition ICD9-CM Code AHW67-HZ Code Onset Dates Condition Status SNOMED Code Problem Anxiety, generalized F41.1 Active 47860048 Problem Essential hypertension I10 Active 69481425 Problem Major depressive disorder, recurrent episode, moderate F33.1 Active 742526020 Problem Abnormal laboratory test R89.9 Active 409788557 Problem Vitamin B12 deficiency anemia due to intrinsic factor deficiency D51.0 Active 99873166 Problem Seasonal allergic rhinitis, unspecified allergic rhinitis trigger J30.2 Active 192710960 Problem Chronic pain due to trauma G89.21 Active 696621604 Problem Migraine without status migrainosus, not intractable, unspecified migraine type G43.909 Active 08810770 Problem Adjustment disorder with mixed anxiety and depressed mood F43.23 Active 70973800 Problem Elevated serum creatinine R79.89 Active 780152531 Problem 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 Active 49915593 Problem Pernicious anemia D51.0 Active 87844834 Problem Hypokalemia E87.6 Active 54839674 Problem Other hyperlipidemia E78.4 Active 47498788 Problem Empty sella syndrome E23.6 Active 769513286 Problem Primary insomnia F51.01 Active 0035078 ALLERGIES No Information ENCOUNTERS Encounter Location Date Diagnosis [facility] [address] [id number] [address] Oct, [facility] [address] [address] Oct, Abnormal laboratory test R89.9 [facility] [id number] [address] Oct, [facility] [address] [address] Oct, [facility] [id number] [place] [address] 28799- 2495 Oct, Essential hypertension I10 [facility] [id number] [place] [address] 65635- 6513 Oct, [facility] [id number] [place] [address] 35102- 9847 Oct, [facility] [id number] [place] [address] 38670- 3524 Oct, Essential hypertension I10 ; Chronic nausea R11.0 ; Hypokalemia E87.6 ; Abnormal thyroid stimulating hormone (TSH) level R79.89 and Recurrent acute suppurative otitis media without spontaneous rupture of left tympanic membrane H66.005 [place] [id number] [place] [address] 74154- 8980 Oct, [facility] [id number] [place] [address] 86336- 1367 Oct, Chronic pain due to trauma G89.21 and Anxiety, generalized F41.1 [place] [id number] [place] [address] 51383- 5822 Oct, [place] [id number] [place] [address] 49366- 6871 Sep, Anxiety, generalized F41.1 and Chronic pain due to trauma G89.21 [facility] [id number] [place] [address] 82015- 3440 Sep, [facility] [id number] [place] [address] 35200- 1624 Sep, Otalgia of left ear H92.02 and Low pressure hydrocephalus G91.2 [facility] [id number] [place] [address] 55109- 6018 Sep, [facility] [id number] [place] [address] 61686- 5119 Aug, Essential hypertension I10 ; 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 ; Empty sella syndrome E23.6 ; Pernicious anemia D51.0 ; Anxiety , generalized F41.1 ; Major depressive disorder, recurrent episode, moderate F33.1 ; Primary insomnia F51.01 ; Hypokalemia E87.6 and Chronic pain due to trauma G89.21 [place] [id number] [place] [address] 75056- 4820 Aug, [place] [id number] [place] [address] 30388- 7739 Aug, Anxiety, generalized F41.1 and Osteoarthritis of spine with radiculopathy, lumbosacral region M47.27 [place] [id number] [place] [address] 31693- 1426 Aug, [place] [id number] [place] [address] 71792- 5399 Aug, Primary insomnia F51.01 [place] [id number] [place] [address] 44033- 1628 July, Anxiety, generalized F41.1 and Osteoarthritis of spine with radiculopathy, lumbosacral region M47.27 [place] [id number] [place] [address] 43227- 3874 July, Essential hypertension I10 [place] [id number] [place] [address] 67883- 5713 July, Major depressive disorder, recurrent episode, moderate F33.1 [place] [id number] [place] [address] 57172- 2135 July, Primary insomnia F51.01 [place] [id number] [place] [address] 09770- 2084 Jun, Anxiety, generalized F41.1 and Osteoarthritis of spine with radiculopathy, lumbosacral region M47.27 [facility] [id number] [place] [address] 74221 -9288 Jun, Acute frontal sinusitis, recurrence not specified J01.10 ; Sinus pressure J34.89 ; Post-nasal drip R09.82 and Sore throat J02.9 [place] [address] 99379- 7212 Jun, Primary insomnia F51.01 [place] [address] 83859- 5687 May, Anxiety, generalized F41.1 and Osteoarthritis of spine with radiculopathy, lumbosacral region M47.27 [place] [address] 06312- 5172 May, Essential hypertension I10 ; 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 ; Empty sella syndrome E23.6 ; Pernicious anemia D51.0 ; Major depressive disorder, recurrent episode, moderate F33.1 ; Primary insomnia F51.01 ; Other hyperlipidemia E78.4 and Anxiety, generalized F41.1 [place] [address] 12432- 0599 May, Vitamin B12 deficiency anemia due to intrinsic factor deficiency D51.0 and Pernicious anemia D51.0 [facility] [address] 38526 -4542 May, Migraine without status migrainosus, not intractable, unspecified migraine type G43.909 [place] [id number] [place] [address] 55102- 4164 May, [place] [address] 75286- 3500 May, [place] [address] 82121- 9243 May, Osteoarthritis of spine with radiculopathy, lumbosacral region M47.27 and Primary insomnia F51.01 [place] [address] 24830- 4666 May, Osteoarthritis of spine with radiculopathy, lumbosacral region M47.27 and Anxiety, generalized F41.1 [place] [address] [id number]- 2882 May, [place] [address] 86989- 6344 Apr, [place] [address] 560226- 1655 Apr, [place] [address] 30917- 7751 Apr, Anxiety, generalized F41.1 ; Major depressive disorder, recurrent episode, moderate F33.1 ; Moderate episode of recurrent major depressive disorder F33.1 and Adjustment disorder with mixed anxiety and depressed mood F43.[address] 09781- 0409 Apr, Major depressive disorder, recurrent episode, moderate F33.1 ; Anxiety, generalized F41.1 ; Essential hypertension I10 ; Primary insomnia F51.01 and Colloid cyst of third ventricle Q04.[address] 14156- 3924 09 Apr, 2017 Other chest pain R07.89 ; Sinus bradycardia R00.1 ; Essential hypertension I10 and Other hyperlipidemia E78.4 [place] [address] 16473- 8400 08 Apr, 2017 Primary insomnia F51.01 [place] [address] 52323- 1872 Apr, [address] 76120- 9073 Apr, Anxiety, generalized F41.[address] 65072- 8457 Apr, Osteoarthritis of spine with radiculopathy, lumbosacral region M47.27 [place] [address] 66780- 2085 Mar, Intractable migraine without aura and without status migrainosus G43.019 and Dyshidrotic hand dermatitis L30.1 [facility] [address] 26194 -2113 Mar, Skin infection L08.9 [place] [address] 97920- 2691 Mar, [facility] [address] 23486 -0534 Mar, Skin lesion L98.9 [place] [address] 13435- 0301 Mar, Primary insomnia F51.01 and Anxiety, generalized F41.1 [place] [address] 29940- 5467 Mar, Osteoarthritis of spine with radiculopathy, lumbosacral region M47.27 [place] [address] 77390- 6391 Feb, [place] [address] 27893- 6321 Feb, [place] [address] 72411- 5388 Feb, Hypokalemia E87.6 [place] [address] 83157- 9212 Feb, Intractable migraine without aura and without status migrainosus G43.019 and Other chest pain R07.89 [place] [address] 13316- 3534 Feb, [place] [address] 91293- 9272 Feb, Osteoarthritis of spine with radiculopathy, lumbosacral region M47.27 [place] [id number] [place] [address] 15031- 8827 Feb, Hypokalemia E87.6 [facility] [id number] [place] [address] 46760- 9931 Feb, [facility] [address] 32533- 5026 Feb, Primary insomnia F51.01 and Anxiety, generalized F41.1 [facility] [id number] [place] [address] 15865 -3141 Feb, Acute suppurative otitis media of both ears without spontaneous rupture of tympanic membranes, recurrence not specified H66.003 [place] [id number] [place] [address] 46319- 9340 Feb, [place] [address] 96828- 3036 Jan, Osteoarthritis of spine with radiculopathy, lumbosacral region M47.27 [place] [id number] [place] [address] 12902- 3815 Jan, Primary insomnia F51.01 and Anxiety, generalized F41.1 [place] [id number] [place] [address] 46274- 3550 Jan, Chronic pain due to trauma G89.21 ; Left otitis media with effusion H65.92 and Otalgia of left ear H92.02 [facility] [id number] [place] [address] 63277 -8700 Jan, Bilateral otitis media with effusion H65.93 [facility] [id number] [place] [address] 91878- 6786 Dec, [facility] [id number] [place] [address] 45525- 4271 Dec, Primary insomnia F51.01 and Anxiety, generalized F41.1 [facility] [address] [address]- 4762 25 Nov, 2016 [facility] [id number] [place] [address] 81094- 3949 15 Nov, 2016 [facility] [id number] [place] [address] 28709- 0831 13 Nov, 2016 Anxiety, generalized F41.1 [place] [id number] [place] [address] 45567- 1385 12 Nov, 2016 Pernicious anemia D51.0 [place] [id number] [place] [address] 42956- 8617 11 Nov, 2016 Primary insomnia F51.01 [place] [id number] [place] [address] 73642- 5024 Nov, Encounter for well woman exam with routine gynecological exam Z01.419 ; Screening breast examination Z12.31 and Otalgia of left ear H92.02 [place] [id number] [place] [address] 51972- 9422 Oct, [facility] [id number] [place] [address] 63347 -0470 14 Oct, 2016 Insect bite (nonvenomous) of right upper arm, initial encounter S40.861A [place] [id number] [place] [address] 73526- 6206 Oct, Pernicious anemia D51.0 [place] [id number] [place] [address] 88694- 3575 07 Oct, 2016 Anxiety, generalized F41.1 and Pernicious anemia D51.0 [place] [id number] [place] [address] 98194- 1428 Oct, Encounter to establish care with new doctor Z76.89 ; Moderate episode of recurrent major depressive disorder F33.1 ; Empty sella syndrome E23.6 ; Seasonal allergic rhinitis, unspecified allergic rhinitis trigger J30.2 ; Essential hypertension I10 and Osteoarthritis of spine with radiculopathy, lumbosacral region M47.27 [facility] [id number] [place] [address] 88312- 3058 Aug, [facility] [id number] [place] [address] 71342- 7094 Aug, [place] [address] 50756- 4066 Aug, Anxiety, generalized F41.1 [place] [address] 80883- 9302 Aug, [place] [address] 48545- 0509 Aug, Primary insomnia F51.01 ; Essential hypertension I10 ; Empty sella syndrome E23.6 and Chronic pain due to trauma G89.21 [place] [address] 21119- 4586 July, Primary insomnia F51.01 [facility] [id number] [place] [address] 19590 -7303 July, Seasonal allergic rhinitis, unspecified allergic rhinitis trigger J30.2 and Acute suppurative otitis media of right ear without spontaneous rupture of tympanic membrane, recurrence not specified H66.001 [facility] [id number] [place] [address] 32387 -9918 July, Acute suppurative otitis media of left ear without spontaneous rupture of tympanic membrane, recurrence not specified H66.002 [place] [id number] [place] [address] 78547- 5123 July, [place] [address] 58674- 7972 July, Anxiety, generalized F41.1 [place] [id number] [place] [address] 95591- 4787 Jun, [facility] [address] [place] [address] 56876- 3044 Jun, Primary insomnia F51.01 [facility] [id number] [place] [address], [place] [address]- 1642 Jun, Empty sella syndrome E23.6 ; Primary insomnia F51.01 and Hypokalemia E87.6 [facility] [id number] [place] [address], [place] [address]- 8423 Jun, [facility] [id number] [place] [address], [place] [address]- 9554 Jun, [facility] [id number] [place] [address], [place] [address]- 2810 Jun, Empty sella syndrome E23.6 [facility] [id number] [place] [address], [place] [address]- 0793 Jun, Anxiety, generalized F41.1 [facility] [id number] [place] [address], [place] [address]- 8863 Jun, [facility] [id number] [place] [address] 46659- 9673 Jun, Empty sella syndrome E23.6 [facility] [id number] [place] [address] 06254- 7150 May, [facility] [id number] [place] [address] 17843- 6040 May, [facility] [id number] [place] [address] 40806- 9620 30 May, 2016 Empty sella syndrome E23.6 [facility] [id number] [place] [address] 57904- 5701 May, [facility] [id number] [place] [address] 52951- 1994 May, [facility] [id number] [place] [address] 94771- 2115 May, Primary insomnia F51.01 [facility] [id number] [place] [address] 75428- 0330 May, [facility] [id number] [place], [place] [address] 3105 May, Nausea R11.0 ; Other headache syndrome G44.89 and Malignant hypertension I10 [facility] [address] 62975- 9221 May, Anxiety, generalized F41.1 [place] [id number] [place] [address] 15308- 3874 Apr, Major depressive disorder, recurrent episode, moderate F33.1 [place] [id number] [place] [address] 09877- 4376 Apr, Moderate episode of recurrent major depressive disorder F33.1 [place] [id number] [place] [address] 98355- 5733 Apr, Other chronic postprocedural pain G89.28 [place] [address] [place] [address] 92810- 1628 15 Apr, 2016 Major depressive disorder, recurrent episode, moderate F33.1 [facility] [id number] [place] [address] 53821- 1476 07 Apr, 2016 Anxiety, generalized F41.1 [place] [id number] [place] [address] 51134- 4070 Apr, [facility] [id number] [place] [address] 42784- 7474 Mar, Other chronic postprocedural pain G89.28 ; Status post craniotomy Z98.890 ; Encounter for drug screening Z02.83 and Hematuria R31.9 [facility] [id number] [place] [address] 30190- 2791 Mar, Major depressive disorder, recurrent episode, moderate F33.1 [place] [address] [place] [address] 21363- 0230 Mar, [place] [id number] [place] [address] 53968- 0534 Mar, Anxiety, generalized F41.1 [place] [id number] [place] [address] 50263- 7061 10 Mar, 2016 Anxiety, generalized F41.1 and Pernicious anemia D51.0 [place] [id number] [place] [address] 03397- 3836 Mar, 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 and Status post craniotomy Z98.890 [place] [id number] [place] [address] 45064- 3562 Mar, Primary insomnia F51.01 [place] [id number] [place] [address] 72766- 4935 Feb, [place] [id number] [place] [address] 73664- 5372 Feb, Encounter to establish care Z76.89 ; Status post craniotomy Z98.890 ; 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 ; Hypokalemia E87.6 ; Essential hypertension I10 ; Other hyperlipidemia E78.4 ; Pernicious anemia D51.0 ; Other depression F32.89 and Chronic nausea R11.0 IMMUNIZATIONS No Known Immunizations SOCIAL HISTORY Never Assessed REASON FOR VISIT Controlled Med Refill 10/12 PLAN OF CARE VITAL SIGNS MEDICATIONS Medication Instructions Dosage Frequency Start Date End Date Duration Status Xanax 0.5 MG Orally Three times a day 1 tablet 8h 28 days Active Oxycodone-Acetaminophen 7.5-325 MG Orally 3 times a day 1 tablet as needed 8h Sep, Oct, 28 days Active RESULTS No Results PROCEDURES No Known procedures INSTRUCTIONS MEDICATIONS ADMINISTERED No Known Medications MEDICAL (GENERAL) HISTORY Type Description Date Medical History HTN Medical History Hypokalemia since cranioplasty in may 2015 Medical History Insomnia longstanding Ambien works at [employer] Medical History Hypercholesterolemia Medical History prenicious anemia [...]
--- OUTSIDE RECORDS SUMMARY | 2017-12-25 03:10 | XMS REPORT ---
Author Author CORRALOSBALDO New Organization [facility] Address [address] [place] [address] Care Team Providers Care Director [employer] Name Role Phone OSBALDO CORRAL Unavailable PROBLEMS Type Condition ICD9-CM Code GTP77-DZ Code Onset Dates Condition Status SNOMED Code Problem Anxiety, generalized F41.1 Active 65978061 Problem Essential hypertension I10 Active 06350457 Problem Major depressive disorder, recurrent episode, moderate F33.1 Active 781595231 Problem Abnormal laboratory test R89.9 Active 977477772 Problem Vitamin B12 deficiency anemia due to intrinsic factor deficiency D51.0 Active 80405568 Problem Seasonal allergic rhinitis, unspecified allergic rhinitis trigger J30.2 Active 368910270 Problem Chronic pain due to trauma G89.21 Active 309483813 Problem Migraine without status migrainosus, not intractable, unspecified migraine type G43.909 Active 85262910 Problem Adjustment disorder with mixed anxiety and depressed mood F43.23 Active 56323675 Problem Elevated serum creatinine R79.89 Active 754920583 Problem 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 Active 01784506 Problem Pernicious anemia D51.0 Active 19896830 Problem Hypokalemia E87.6 Active 24411063 Problem Other hyperlipidemia E78.4 Active 65974417 Problem Empty sella syndrome E23.6 Active 917766360 Problem Primary insomnia F51.01 Active 4840061 ALLERGIES No Information ENCOUNTERS Encounter Location Date Diagnosis [facility] [address] [facility] [id number] [address] Oct, [facility] [id number] [address] Oct, Abnormal laboratory test R89.9 [facility] [address] [id number] [address] Oct, [facility] [id number] [address] Oct, [facility] [id number] [place] [address] 28269- 3332 Oct, Essential hypertension I10 [facility] [id number] [place] [address] 77996- 6146 Oct, [facility] [id number] [place] [address] 54292- 9419 Oct, [facility] [id number] [place] [address] 44051- 9122 Oct, Essential hypertension I10 ; Chronic nausea R11.0 ; Hypokalemia E87.6 ; Abnormal thyroid stimulating hormone (TSH) level R79.89 and Recurrent acute suppurative otitis media without spontaneous rupture of left tympanic membrane H66.005 [place] [id number] [place] [address] 37576- 0052 Oct, [facility] [id number] [place] [address] 86287- 9853 Oct, Chronic pain due to trauma G89.21 and Anxiety, generalized F41.1 [place] [id number] [place] [address] 64173- 9580 Oct, [place] [id number] [place] [address] 33474- 2187 Sep, Anxiety, generalized F41.1 and Chronic pain due to trauma G89.21 [facility] [id number] [place] [address] 97859- 1481 Sep, [facility] [id number] [place] [address] 86716- 5054 Sep, Otalgia of left ear H92.02 and Low pressure hydrocephalus G91.2 [facility] [id number] [place] [address] 44222- 2500 Sep, [facility] [id number] [place] [address] 44693- 8308 Aug, Essential hypertension I10 ; Colloid cyst of third ventricle 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.6 ; Empty sella syndrome E23.6 ; Pernicious anemia D51.0 ; Anxiety , generalized F41.1 ; Major depressive disorder, recurrent episode, moderate F33.1 ; Primary insomnia F51.01 ; Hypokalemia E87.6 and Chronic pain due to trauma G89.21 [place] [id number] [place] [address] 94924- 8623 Aug, [place] [id number] [place] [address] 67274- 6281 Aug, Anxiety, generalized F41.1 and Osteoarthritis of spine with radiculopathy, lumbosacral region M47.27 [place] [id number] [place] [address] 11672- 0879 Aug, [place] [id number] [place] [address] 80872- 6629 Aug, Primary insomnia F51.01 [place] [id number] [place] [address] 87337- 5534 July, Anxiety, generalized F41.1 and Osteoarthritis of spine with radiculopathy, lumbosacral region M47.27 [place] [id number] [place] [address] 34635- 2112 July, Essential hypertension I10 [place] [id number] [place] [address] 85459- 4431 July, Major depressive disorder, recurrent episode, moderate F33.1 [place] [id number] [place] [address] 49810- 7024 July, Primary insomnia F51.01 [place] [id number] [place] [address] 02031- 9417 Jun, Anxiety, generalized F41.1 and Osteoarthritis of spine with radiculopathy, lumbosacral region M47.27 [facility] [id number] [place] [address] 54761 -7018 Jun, Acute frontal sinusitis, recurrence not specified J01.10 ; Sinus pressure J34.89 ; Post-nasal drip R09.82 and Sore throat J02.9 [place] [address] 48285- 7001 Jun, Primary insomnia F51.01 [place] [address] 19582- 1979 May, Anxiety, generalized F41.1 and Osteoarthritis of spine with radiculopathy, lumbosacral region M47.27 [place] [address] 10063- 9556 May, Essential hypertension I10 ; Colloid cyst of third ventricle Q04.6 ; Empty sella syndrome E23.6 ; Pernicious anemia D51.0 ; Major depressive disorder, recurrent episode, moderate F33.1 ; Primary insomnia F51.01 ; Other hyperlipidemia E78.4 and Anxiety, generalized F41.1 [place] [address] 64027- 6322 May, Vitamin B12 deficiency anemia due to intrinsic factor deficiency D51.0 and Pernicious anemia D51.0 [facility] [address] 41884 -2617 May, Migraine without status migrainosus, not intractable, unspecified migraine type G43.909 [place] [id number] [place] [address] 36144- 3054 May, [place] [address] 33181- 3269 May, [place] [address] 28667- 4533 May, Osteoarthritis of spine with radiculopathy, lumbosacral region M47.27 and Primary insomnia F51.01 [place] [address] 25785- 4566 May, Osteoarthritis of spine with radiculopathy, lumbosacral region M47.27 and Anxiety, generalized F41.1 [place] [address] [id number]- 4861 May, [place] [address] 94202- 8513 Apr, [place] [address] [place] 866427- 5907 Apr, [place] [address] 15265- 5093 Apr, Anxiety, generalized F41.1 ; Major depressive disorder, recurrent episode, moderate F33.1 ; Moderate episode of recurrent major depressive disorder F33.1 and Adjustment disorder with mixed anxiety and depressed mood F43.[address] 21302- 6880 Apr, Major depressive disorder, recurrent episode, moderate F33.1 ; Anxiety, generalized F41.1 ; Essential hypertension I10 ; Primary insomnia F51.01 and Colloid cyst of third ventricle Q04.[address] 76390- 7608 09 Apr, 2017 Other chest pain R07.89 ; Sinus bradycardia R00.1 ; Essential hypertension I10 and Other hyperlipidemia E78.4 [place] [address] 67213- 7592 08 Apr, 2017 Primary insomnia F51.01 [place] [address] 65191- 0241 Apr, [address] 97646- 8663 Apr, Anxiety, generalized F41.[address] 25355- 2983 Apr, Osteoarthritis of spine with radiculopathy, lumbosacral region M47.27 [place] [address] 44440- 2780 Mar, Intractable migraine without aura and without status migrainosus G43.019 and Dyshidrotic hand dermatitis L30.1 [facility] [address] 19773 -2861 Mar, Skin infection L08.9 [place] [address] 69999- 9124 Mar, [facility] [address] 48362 -6169 Mar, Skin lesion L98.9 [place] [address] 70920- 7146 Mar, Primary insomnia F51.01 and Anxiety, generalized F41.1 [place] [address] 93460- 7974 Mar, Osteoarthritis of spine with radiculopathy, lumbosacral region M47.27 [place] [address] 85311- 6447 Feb, [place] [address] 86667- 5333 Feb, [place] [address] 28476- 3417 Feb, Hypokalemia E87.6 [place] [address] 70345- 8606 Feb, Intractable migraine without aura and without status migrainosus G43.019 and Other chest pain R07.89 [place] [address] 61244- 6407 Feb, [place] [address] 18285- 3113 Feb, Osteoarthritis of spine with radiculopathy, lumbosacral region M47.27 [place] [id number] [place] [address] 31400- 2130 Feb, Hypokalemia E87.6 [facility] [id number] [place] [address] 25351- 0345 Feb, [facility] [address] 26825- 7065 Feb, Primary insomnia F51.01 and Anxiety, generalized F41.1 [facility] [id number] [place] [address] 43259 -6111 Feb, Acute suppurative otitis media of both ears without spontaneous rupture of tympanic membranes, recurrence not specified H66.003 [place] [id number] [place] [address] 80495- 9821 Feb, [place] [address] 73666- 6488 Jan, Osteoarthritis of spine with radiculopathy, lumbosacral region M47.27 [place] [id number] [place] [address] 00350- 5886 Jan, Primary insomnia F51.01 and Anxiety, generalized F41.1 [place] [id number] [place] [address] 88188- 4727 Jan, Chronic pain due to trauma G89.21 ; Left otitis media with effusion H65.92 and Otalgia of left ear H92.02 [facility] [id number] [place] [address] 83445 -1164 Jan, Bilateral otitis media with effusion H65.93 [facility] [id number] [place] [address] 96060- 8815 Dec, [facility] [id number] [place] [address] 73575- 3524 Dec, Primary insomnia F51.01 and Anxiety, generalized F41.1 [facility] [id number], [place] [address]- 6675 25 Nov, 2016 [facility] [id number] [place] [address] 67382- 0444 15 Nov, 2016 [facility] [id number] [place] [address] 40383- 2649 13 Nov, 2016 Anxiety, generalized F41.1 [place] [id number] [place] [address] 68487- 1292 12 Nov, 2016 Pernicious anemia D51.0 [place] [id number] [place] [address] 06440- 2317 11 Nov, 2016 Primary insomnia F51.01 [place] [id number] [place] [address] 95343- 5691 Nov, Encounter for well woman exam with routine gynecological exam Z01.419 ; Screening breast examination Z12.31 and Otalgia of left ear H92.02 [place] [id number] [place] [address] 78927- 5274 Oct, [facility] [id number] [place] [address] 27189 -7534 14 Oct, 2016 Insect bite (nonvenomous) of right upper arm, initial encounter S40.861A [place] [id number] [place] [address] 70606- 3133 Oct, Pernicious anemia D51.0 [place] [id number] [place] [address] 49975- 7427 07 Oct, 2016 Anxiety, generalized F41.1 and Pernicious anemia D51.0 [place] [id number] [place] [address] 05179- 3657 Oct, Encounter to establish care with new doctor Z76.89 ; Moderate episode of recurrent major depressive disorder F33.1 ; Empty sella syndrome E23.6 ; Seasonal allergic rhinitis, unspecified allergic rhinitis trigger J30.2 ; Essential hypertension I10 and Osteoarthritis of spine with radiculopathy, lumbosacral region M47.27 [facility] [id number] [place] [address] 89237- 3527 Aug, [facility] [id number] [place] [address] 30141- 7420 Aug, [place] [address] 77078- 8604 Aug, Anxiety, generalized F41.1 [place] [address] 77241- 3510 Aug, [place] [address] 79459- 6321 Aug, Primary insomnia F51.01 ; Essential hypertension I10 ; Empty sella syndrome E23.6 and Chronic pain due to trauma G89.21 [place] [address] 93724- 4068 July, Primary insomnia F51.01 [facility] [id number] [place] [address] 03101 -2792 July, Seasonal allergic rhinitis, unspecified allergic rhinitis trigger J30.2 and Acute suppurative otitis media of right ear without spontaneous rupture of tympanic membrane, recurrence not specified H66.001 [facility] [id number] [place] [address] 85327 -6375 July, Acute suppurative otitis media of left ear without spontaneous rupture of tympanic membrane, recurrence not specified H66.002 [place] [id number] [place] [address] 40763- 8244 July, [place] [address] 29138- 9977 July, Anxiety, generalized F41.1 [place] [id number] [place] [address] 60982- 3833 Jun, [facility] [id number] [place] [address] 69334- 4752 Jun, Primary insomnia F51.01 [facility] [id number] [place] [address], [place] [address]- 8612 Jun, Empty sella syndrome E23.6 ; Primary insomnia F51.01 and Hypokalemia E87.6 [facility] [id number] [place] [address], [place] [address]- 5230 Jun, [facility] [id number] [place] [address], [place] [address]- 2775 Jun, [facility] [id number] [place] [address], [place] [address]- 8145 Jun, Empty sella syndrome E23.6 [facility] [id number] [place] [address], [place] [address]- 6339 Jun, Anxiety, generalized F41.1 [facility] [id number] [place] [address], [place] [address]- 4128 Jun, [facility] [id number] [place] [address] 50992- 0020 Jun, Empty sella syndrome E23.6 [facility] [id number] [place] [address] 42913- 9937 May, [facility] [id number] [place] [address] 92011- 7640 May, [facility] [id number] [place] [address] 50795- 9122 30 May, 2016 Empty sella syndrome E23.6 [facility] [id number] [place] [address] 57370- 1138 May, [facility] [id number] [place] [address] 39601- 7308 May, [facility] [id number] [place] [address] 10972- 7353 May, Primary insomnia F51.01 [facility] [id number] [place] [address] 23049- 3265 May, [facility] [id number] [place] [address] 4908 May, Nausea R11.0 ; Other headache syndrome G44.89 and Malignant hypertension I10 [facility] [address] 24277- 5849 May, Anxiety, generalized F41.1 [place] [id number] [place] [address] 73488- 4584 Apr, Major depressive disorder, recurrent episode, moderate F33.1 [place] [id number] [place] [address] 94429- 1731 Apr, Moderate episode of recurrent major depressive disorder F33.1 [place] [id number] [place] [address] 61399- 1814 Apr, Other chronic postprocedural pain G89.28 [place] [id number] [place] [address] 31028- 0384 15 Apr, 2016 Major depressive disorder, recurrent episode, moderate F33.1 [facility] [id number] [place] [address] 14971- 5041 07 Apr, 2016 Anxiety, generalized F41.1 [place] [id number] [place] [address] 17432- 3772 Apr, [facility] [id number] [place] [address] 37296- 6966 Mar, Other chronic postprocedural pain G89.28 ; Status post craniotomy Z98.890 ; Encounter for drug screening Z02.83 and Hematuria R31.9 [facility] [id number] [place] [address] 25434- 6742 Mar, Major depressive disorder, recurrent episode, moderate F33.1 [place] [id number] [place] [address] 51677- 4964 Mar, [place] [id number] [place] [address] 48730- 8728 Mar, Anxiety, generalized F41.1 [place] [id number] [place] [address] 50938- 9833 10 Mar, 2016 Anxiety, generalized F41.1 and Pernicious anemia D51.0 [place] [id number] [place] [address] 47420- 8024 Mar, Colloid cyst of third ventricle Q04.6 and Status post craniotomy Z98.890 [place] [id number] [place] [address] 88037- 4065 Mar, Primary insomnia F51.01 [place] [id number] [place] [address] 63242- 8142 Feb, [place] [id number] [place] [address] 83129- 6014 Feb, Encounter to establish care Z76.89 ; Status post craniotomy Z98.890 ; Colloid cyst of third ventricle 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
--- OUTSIDE RECORDS SUMMARY | 2017-12-25 03:11 | XMS REPORT ---
Author Author CORRALOSBALDO New Organization [facility] Address [address] [place] [address] Care Team Providers Care Taxation Accountant Name Role Phone OSBALDO CORRAL Unavailable PROBLEMS Type Condition ICD9-CM Code MQP54-GS Code Onset Dates Condition Status SNOMED Code Problem Anxiety, generalized F41.1 Active 39153165 Problem Essential hypertension I10 Active 34511254 Problem Major depressive disorder, recurrent episode, moderate F33.1 Active 908897549 Problem Abnormal laboratory test R89.9 Active 056668686 Problem Vitamin B12 deficiency anemia due to intrinsic factor deficiency D51.0 Active 83715485 Problem Seasonal allergic rhinitis, unspecified allergic rhinitis trigger J30.2 Active 506154867 Problem Chronic pain due to trauma G89.21 Active 763102465 Problem Migraine without status migrainosus, not intractable, unspecified migraine type G43.909 Active 48406399 Problem Adjustment disorder with mixed anxiety and depressed mood F43.23 Active 83708200 Problem Elevated serum creatinine R79.89 Active 755164796 Problem 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 Active 56418293 Problem Pernicious anemia D51.0 Active 51623779 Problem Hypokalemia E87.6 Active 00286162 Problem Other hyperlipidemia E78.4 Active 19773237 Problem Empty sella syndrome E23.6 Active 536952254 Problem Primary insomnia F51.01 Active 7494002 ALLERGIES No Information ENCOUNTERS Encounter Location Date Diagnosis [facility] [address] [facility] [id number] [address] Oct, [facility] [id number] [address] Oct, Abnormal laboratory test R89.9 [facility] [id number] [address] Oct, [facility] [address] [address] Oct, [facility] [id number] [place] [address] 21109- 1175 Oct, Essential hypertension I10 [facility] [id number] [place] [address] 92302- 9169 Oct, [facility] [id number] [place] [address] 43776- 7161 Oct, [facility] [id number] [place] [address] 49317- 9509 Oct, Essential hypertension I10 ; Chronic nausea R11.0 ; Hypokalemia E87.6 ; Abnormal thyroid stimulating hormone (TSH) level R79.89 and Recurrent acute suppurative otitis media without spontaneous rupture of left tympanic membrane H66.005 [place] [id number] [place] [address] 60212- 1553 Oct, [facility] [id number] [place] [address] 50547- 6483 Oct, Chronic pain due to trauma G89.21 and Anxiety, generalized F41.1 [place] [id number] [place] [address] 56268- 3544 Oct, [place] [id number] [place] [address] 16070- 8906 Sep, Anxiety, generalized F41.1 and Chronic pain due to trauma G89.21 [facility] [id number] [place] [address] 53088- 7354 Sep, [facility] [id number] [place] [address] 12221- 7390 Sep, Otalgia of left ear H92.02 and Low pressure hydrocephalus G91.2 [facility] [id number] [place] [address] 06102- 4121 Sep, [facility] [id number] [place] [address] 16559- 7933 Aug, Essential hypertension I10 ; 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 ; Empty sella syndrome E23.6 ; Pernicious anemia D51.0 ; Anxiety , generalized F41.1 ; Major depressive disorder, recurrent episode, moderate F33.1 ; Primary insomnia F51.01 ; Hypokalemia E87.6 and Chronic pain due to trauma G89.21 [place] [id number] [place] [address] 25715- 9206 Aug, [place] [id number] [place] [address] 94938- 9154 Aug, Anxiety, generalized F41.1 and Osteoarthritis of spine with radiculopathy, lumbosacral region M47.27 [place] [id number] [place] [address] 74083- 5425 Aug, [place] [id number] [place] [address] 56463- 5007 Aug, Primary insomnia F51.01 [place] [id number] [place] [address] 37401- 6580 July, Anxiety, generalized F41.1 and Osteoarthritis of spine with radiculopathy, lumbosacral region M47.27 [place] [id number] [place] [address] 68217- 6166 July, Essential hypertension I10 [place] [id number] [place] [address] 43343- 0966 July, Major depressive disorder, recurrent episode, moderate F33.1 [place] [id number] [place] [address] 24953- 4598 July, Primary insomnia F51.01 [place] [id number] [place] [address] 21823- 3743 Jun, Anxiety, generalized F41.1 and Osteoarthritis of spine with radiculopathy, lumbosacral region M47.27 [facility] [id number] [place] [address] 55533 -2314 Jun, Acute frontal sinusitis, recurrence not specified J01.10 ; Sinus pressure J34.89 ; Post-nasal drip R09.82 and Sore throat J02.9 [place] [address] 16546- 7842 Jun, Primary insomnia F51.01 [place] [address] 38438- 6171 May, Anxiety, generalized F41.1 and Osteoarthritis of spine with radiculopathy, lumbosacral region M47.27 [place] [address] 75818- 1419 May, Essential hypertension I10 ; Colloid cyst of third ventricle Q04.6 ; Empty sella syndrome E23.6 ; Pernicious anemia D51.0 ; Major depressive disorder, recurrent episode, moderate F33.1 ; Primary insomnia F51.01 ; Other hyperlipidemia E78.4 and Anxiety, generalized F41.1 [place] [address] 86038- 3392 May, Vitamin B12 deficiency anemia due to intrinsic factor deficiency D51.0 and Pernicious anemia D51.0 [facility] [address] 99192 -9458 May, Migraine without status migrainosus, not intractable, unspecified migraine type G43.909 [place] [id number] [place] [address] 77766- 9346 May, [place] [address] 14407- 2153 May, [place] [address] 11269- 6390 May, Osteoarthritis of spine with radiculopathy, lumbosacral region M47.27 and Primary insomnia F51.01 [place] [address] 43732- 0850 May, Osteoarthritis of spine with radiculopathy, lumbosacral region M47.27 and Anxiety, generalized F41.1 [place] [address] [id number]- 2120 May, [place] [address] 84215- 8641 Apr, [place] [address] [address]68696- 5007 Apr, [place] [address] 46421- 7624 Apr, Anxiety, generalized F41.1 ; Major depressive disorder, recurrent episode, moderate F33.1 ; Moderate episode of recurrent major depressive disorder F33.1 and Adjustment disorder with mixed anxiety and depressed mood F43.[address] 5[address]74- 3095 Apr, Major depressive disorder, recurrent episode, moderate F33.1 ; Anxiety, generalized F41.1 ; Essential hypertension I10 ; Primary insomnia F51.01 and Colloid cyst of third ventricle Q04.[address] 25584- 3908 09 Apr, 2017 Other chest pain R07.89 ; Sinus bradycardia R00.1 ; Essential hypertension I10 and Other hyperlipidemia E78.4 [place] [address] 51799- 6154 08 Apr, 2017 Primary insomnia F51.01 [place] [address] 78861- 5775 Apr, [address] 23130- 6418 Apr, Anxiety, generalized F41.[address] 82648- 2889 Apr, Osteoarthritis of spine with radiculopathy, lumbosacral region M47.27 [place] [address] 48183- 9040 Mar, Intractable migraine without aura and without status migrainosus G43.019 and Dyshidrotic hand dermatitis L30.1 [facility] [address] 07253 -6231 Mar, Skin infection L08.9 [place] [address] 72632- 0468 Mar, [facility] [address] 17146 -7488 Mar, Skin lesion L98.9 [place] [address] 43312- 2563 Mar, Primary insomnia F51.01 and Anxiety, generalized F41.1 [place] [address] 17665- 9572 Mar, Osteoarthritis of spine with radiculopathy, lumbosacral region M47.27 [place] [address] 71117- 9845 Feb, [place] [address] 21159- 8433 Feb, [place] [address] 46385- 2276 Feb, Hypokalemia E87.6 [place] [address] 95005- 9323 Feb, Intractable migraine without aura and without status migrainosus G43.019 and Other chest pain R07.89 [place] [address] 83245- 5364 Feb, [place] [address] 32787- 2564 Feb, Osteoarthritis of spine with radiculopathy, lumbosacral region M47.27 [place] [id number] [place] [address] 31592- 9298 Feb, Hypokalemia E87.6 [facility] [id number] [place] [address] 51387- 3986 Feb, [facility] [address] 45987- 0195 Feb, Primary insomnia F51.01 and Anxiety, generalized F41.1 [facility] [id number] [place] [address] 04236 -8620 Feb, Acute suppurative otitis media of both ears without spontaneous rupture of tympanic membranes, recurrence not specified H66.003 [place] [id number] [place] [address] 33961- 9292 Feb, [place] [address] 44024- 6177 Jan, Osteoarthritis of spine with radiculopathy, lumbosacral region M47.27 [place] [id number] [place] [address] 07990- 0989 Jan, Primary insomnia F51.01 and Anxiety, generalized F41.1 [place] [id number] [place] [address] 27563- 2959 Jan, Chronic pain due to trauma G89.21 ; Left otitis media with effusion H65.92 and Otalgia of left ear H92.02 [facility] [id number] [place] [address] 34522 -9323 Jan, Bilateral otitis media with effusion H65.93 [facility] [id number] [place] [address] 63812- 4422 Dec, [facility] [id number] [place] [address] 37703- 3677 Dec, Primary insomnia F51.01 and Anxiety, generalized F41.1 [facility] [address] [address]- 4652 25 Nov, 2016 [facility] [id number] [place] [address] 90248- 3987 15 Nov, 2016 [facility] [id number] [place] [address] 06698- 9724 13 Nov, 2016 Anxiety, generalized F41.1 [place] [id number] [place] [address] 34090- 4706 12 Nov, 2016 Pernicious anemia D51.0 [place] [id number] [place] [address] 70986- 0669 11 Nov, 2016 Primary insomnia F51.01 [place] [id number] [place] [address] 08106- 2311 Nov, Encounter for well woman exam with routine gynecological exam Z01.419 ; Screening breast examination Z12.31 and Otalgia of left ear H92.02 [place] [id number] [place] [address] 41111- 8442 Oct, [facility] [id number] [place] [address] 46213 -2971 14 Oct, 2016 Insect bite (nonvenomous) of right upper arm, initial encounter S40.861A [place] [id number] [place] [address] 34266- 4518 Oct, Pernicious anemia D51.0 [place] [id number] [place] [address] 86561- 9201 07 Oct, 2016 Anxiety, generalized F41.1 and Pernicious anemia D51.0 [place] [id number] [place] [address] 75375- 7336 Oct, Encounter to establish care with new doctor Z76.89 ; Moderate episode of recurrent major depressive disorder F33.1 ; Empty sella syndrome E23.6 ; Seasonal allergic rhinitis, unspecified allergic rhinitis trigger J30.2 ; Essential hypertension I10 and Osteoarthritis of spine with radiculopathy, lumbosacral region M47.27 [facility] [id number] [place] [address] 99070- 9037 Aug, [facility] [id number] [place] [address] 71674- 9662 Aug, [place] [address] 33409- 4982 Aug, Anxiety, generalized F41.1 [place] [address] 53232- 5657 Aug, [place] [address] 83576- 2005 Aug, Primary insomnia F51.01 ; Essential hypertension I10 ; Empty sella syndrome E23.6 and Chronic pain due to trauma G89.21 [place] [address] 57279- 0011 July, Primary insomnia F51.01 [facility] [id number] [place] [address] 02987 -2113 July, Seasonal allergic rhinitis, unspecified allergic rhinitis trigger J30.2 and Acute suppurative otitis media of right ear without spontaneous rupture of tympanic membrane, recurrence not specified H66.001 [facility] [id number] [place] [address] 37859 -2737 July, Acute suppurative otitis media of left ear without spontaneous rupture of tympanic membrane, recurrence not specified H66.002 [place] [id number] [place] [address] 07728- 7815 July, [place] [address] 37760- 0104 July, Anxiety, generalized F41.1 [place] [id number] [place] [address] 27337- 5700 Jun, [facility] [address] [place] [address] 68413- 9626 Jun, Primary insomnia F51.01 [facility] [id number] [place] [address], [place] [address]- 6645 Jun, Empty sella syndrome E23.6 ; Primary insomnia F51.01 and Hypokalemia E87.6 [facility] [id number] [place] [address], [place] [address]- 1217 Jun, [facility] [id number] [place] [address], [place] [address]- 6970 Jun, [facility] [id number] [place] [address], [place] [address]- 6749 Jun, Empty sella syndrome E23.6 [facility] [id number] [place] [address], [place] [address]- 8950 Jun, Anxiety, generalized F41.1 [facility] [id number] [place] [address], [place] [address]- 4065 Jun, [facility] [id number] [place] [address] 58337- 2194 Jun, Empty sella syndrome E23.6 [facility] [id number] [place] [address] 11544- 8667 May, [facility] [id number] [place] [address] 33892- 1874 May, [facility] [id number] [place] [address] 98138- 7157 30 May, 2016 Empty sella syndrome E23.6 [facility] [id number] [place] [address] 55997- 8035 May, [facility] [id number] [place] [address] 41120- 1108 May, [facility] [id number] [place] [address] 43718- 4896 May, Primary insomnia F51.01 [facility] [id number] [place] [address] 55366- 1779 May, [facility] [id number] [place], [place] [address] 9850 May, Nausea R11.0 ; Other headache syndrome G44.89 and Malignant hypertension I10 [facility] [address] 74882- 6048 May, Anxiety, generalized F41.1 [place] [id number] [place] [address] 31644- 0645 Apr, Major depressive disorder, recurrent episode, moderate F33.1 [place] [id number] [place] [address] 71885- 6686 Apr, Moderate episode of recurrent major depressive disorder F33.1 [place] [id number] [place] [address] 35785- 9063 Apr, Other chronic postprocedural pain G89.28 [place] [id number] [place] [address] 35345- 3541 15 Apr, 2016 Major depressive disorder, recurrent episode, moderate F33.1 [facility] [id number] [place] [address] 70461- 6298 07 Apr, 2016 Anxiety, generalized F41.1 [place] [id number] [place] [address] 30544- 0381 Apr, [facility] [id number] [place] [address] 98909- 6291 Mar, Other chronic postprocedural pain G89.28 ; Status post craniotomy Z98.890 ; Encounter for drug screening Z02.83 and Hematuria R31.9 [facility] [id number] [place] [address] 56475- 2234 Mar, Major depressive disorder, recurrent episode, moderate F33.1 [place] [address] [place] [address] 70631- 1696 Mar, [place] [id number] [place] [address] 65117- 7247 Mar, Anxiety, generalized F41.1 [place] [id number] [place] [address] 59281- 4358 10 Mar, 2016 Anxiety, generalized F41.1 and Pernicious anemia D51.0 [place] [id number] [place] [address] 29538- 3863 Mar, 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 and Status post craniotomy Z98.890 [place] [id number] [place] [address] 71728- 1084 Mar, Primary insomnia F51.01 [place] [id number] [place] [address] 19615- 3540 Feb, [place] [id number] [place] [address] 99955- 7915 Feb, Encounter to establish care Z76.89 ; Status post craniotomy Z98.890 ; 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 [facility] 02/2017
--- OUTSIDE RECORDS SUMMARY | 2017-12-25 03:11 | XMS REPORT ---
Author Author OSBALDO CORRAL [facility] Address [address] [place] [address] Care Team Providers Care Barn Hand Name Role Phone OSBALDO CORRAL Unavailable PROBLEMS Type Condition ICD9-CM Code RWS96-OV Code Onset Dates Condition Status SNOMED Code Problem Anxiety, generalized F41.1 Active 91004223 Problem Essential hypertension I10 Active 15110862 Problem Major depressive disorder, recurrent episode, moderate F33.1 Active 276117034 Problem Abnormal laboratory test R89.9 Active 163820022 Problem Vitamin B12 deficiency anemia due to intrinsic factor deficiency D51.0 Active 11497517 Problem Seasonal allergic rhinitis, unspecified allergic rhinitis trigger J30.2 Active 383579001 Problem Chronic pain due to trauma G89.21 Active 636072431 Problem Migraine without status migrainosus, not intractable, unspecified migraine type G43.909 Active 02921460 Problem Adjustment disorder with mixed anxiety and depressed mood F43.23 Active 66237105 Problem Elevated serum creatinine R79.89 Active 588141818 Problem 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 Active 68907157 Problem Pernicious anemia D51.0 Active 88473279 Problem Hypokalemia E87.6 Active 28772195 Problem Other hyperlipidemia E78.4 Active 96047193 Problem Empty sella syndrome E23.6 Active 030603280 Problem Primary insomnia F51.01 Active 7063204 ALLERGIES Substance Reaction Event Type Date Status Iodine anaphylaxis Drug Allergy Aug, Active Dilaudid Hallucinations Drug Allergy Aug, Active Depakote CP Drug Allergy Aug, Active Bactrim DS swelling of joint Drug Allergy Aug, Active ENCOUNTERS Encounter Location Date Diagnosis [facility] [address] [facility] [id number] [address] Nov, [facility] [address] [facility] [id number] [address] Oct, [facility] [address] [place] [id number] [place] [address] 08585- 7163 Oct, Abnormal laboratory test R89.9 [facility] [id number] [place] [address] 61741- 5590 Oct, [facility] [id number] [place] [address] 67649- 7746 Oct, [facility] [address] 9[address]43- 9848 Oct, Essential hypertension I10 [facility] [id number] [place] [address] 34853- 3463 Oct, [facility] [id number] [place] [address] 68408- 1886 Oct, [facility] [id number] [place] [address] 26221- 2178 Oct, Essential hypertension I10 ; Chronic nausea R11.0 ; Hypokalemia E87.6 ; Abnormal thyroid stimulating hormone (TSH) level R79.89 and Recurrent acute suppurative otitis media without spontaneous rupture of left tympanic membrane H66.005 [facility] [id number] [place] [address] 54895- 0749 Oct, [facility] [id number] [place] [address] 15902- 9587 Oct, Chronic pain due to trauma G89.21 and Anxiety, generalized F41.1 [facility] [id number] [place] [address] 67197- 0800 Oct, [facility] [id number] [place] [address] 75545- 1823 Sep, Anxiety, generalized F41.1 and Chronic pain due to trauma G89.21 [facility] [id number] [place] [address] 60516- 8045 Sep, [facility] [id number] [place] [address] 12405- 1211 Sep, Otalgia of left ear H92.02 and Low pressure hydrocephalus G91.2 [place] [address] 50515- 2918 Sep, [place] [address] [place] [id number] [place] [address] 31738- 6037 Aug, Essential hypertension I10 ; Colloid cyst of third ventricle Q04.6 ; Empty sella syndrome E23.6 ; Pernicious anemia D51.0 ; Anxiety , generalized F41.1 ; Major depressive disorder, recurrent episode, moderate F33.1 ; Primary insomnia F51.01 ; Hypokalemia E87.6 and Chronic pain due to trauma G89.21 [place] [address] [place] [id number] [place] [address] 89089- 2431 Aug, [place] [address] 63151- 2053 Aug, Anxiety, generalized F41.1 and Osteoarthritis of spine with radiculopathy, lumbosacral region M47.27 [place] [address] [place] [id number] [place] [address] 57923- 2072 Aug, [place] [address] [id number] [place] [address] 45808- 9856 Aug, Primary insomnia F51.01 [place] [address] [address] [id number] [place] [address] 47013- 1117 July, Anxiety, generalized F41.1 and Osteoarthritis of spine with radiculopathy, lumbosacral region M47.27 [place] [address] [place] [id number] [place] [address] 55830- 6716 July, Essential hypertension I10 [place] [address] [id number] [place] [address] 10233- 0729 July, Major depressive disorder, recurrent episode, moderate F33.1 [place] [address] [address] [id number] [place] [address] 00683- 2734 July, Primary insomnia F51.01 [place] [address] [id number] [place] [address] 62479- 6069 Jun, Anxiety, generalized F41.1 and Osteoarthritis of spine with radiculopathy, lumbosacral region M47.27 [facility] [id number] [place] [address] 51237 -0664 Jun, Acute frontal sinusitis, recurrence not specified J01.10 ; Sinus pressure J34.89 ; Post-nasal drip R09.82 and Sore throat J02.9 [place] [address] 70971- 7316 Jun, Primary insomnia F51.01 [place] [address] [place] [id number] [place] [address] 32751- 0291 May, Anxiety, generalized F41.1 and Osteoarthritis of spine with radiculopathy, lumbosacral region M47.27 [place] [address] [place] [id number] [place] [address] 91039- 7711 May, Essential hypertension I10 ; Colloid cyst of third ventricle 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.6 ; Empty sella syndrome E23.6 ; Pernicious anemia D51.0 ; Major depressive disorder, recurrent episode, moderate F33.1 ; Primary insomnia F51.01 ; Other hyperlipidemia E78.4 and Anxiety, generalized F41.1 [place] [address] [place] [id number] [place] [address] 90763- 6912 May, Vitamin B12 deficiency anemia due to intrinsic factor deficiency D51.0 and Pernicious anemia D51.0 [facility] [id number] [place] [address] 82469 -9973 May, Migraine without status migrainosus, not intractable, unspecified migraine type G43.909 [place] [address] [place] [id number] [place] [address] 77574- 5808 May, [place] [address] 37377- 7041 14 May, 2017 [place] [address] [place] [id number] [place] [address] 72461- 9330 May, Osteoarthritis of spine with radiculopathy, lumbosacral region M47.27 and Primary insomnia F51.01 [place] [address] [place] [id number] [place] [address] 76387- 3630 May, Osteoarthritis of spine with radiculopathy, lumbosacral region M47.27 and Anxiety, generalized F41.1 [place] [address] [place] [id number] [place] [address] 84505- 7830 May, [place] [address] 37829- 7123 28 Apr, 2017 [place] [address] [address] [id number] [place] [address] 06904- 8455 Apr, [place] [address] [address] [id number] [place] [address] 54705- 6414 Apr, Anxiety, generalized F41.1 ; Major depressive disorder, recurrent episode, moderate F33.1 ; Moderate episode of recurrent major depressive disorder F33.1 and Adjustment disorder with mixed anxiety and depressed mood F43.23 [place] [address] [id number] [place] [address] 31635- 0798 Apr, Major depressive disorder, recurrent episode, moderate F33.1 ; Anxiety, generalized F41.1 ; Essential hypertension I10 ; Primary insomnia F51.01 and Colloid cyst of third ventricle 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.6 [place] [address] [place] [address] 44591- 7201 09 Apr, 2017 Other chest pain R07.89 ; Sinus bradycardia R00.1 ; Essential hypertension I10 and Other hyperlipidemia E78.4 [place] [address] [address] [id number] [place] [address] 08681- 1173 08 Apr, 2017 Primary insomnia F51.01 [place] [address] 38156- 6956 Apr, [place] [address] [id number] [place] [address] 38770- 6993 Apr, Anxiety, generalized F41.1 [place] [address] 31594- 9208 Apr, Osteoarthritis of spine with radiculopathy, lumbosacral region M47.27 [place] [address] 37319- 3167 Mar, Intractable migraine without aura and without status migrainosus G43.019 and Dyshidrotic hand dermatitis L30.1 [facility] [place] [address] 89126 -7673 Mar, Skin infection L08.9 [place] [address] 45030- 7843 Mar, [facility] [place] [address] 15452 -0853 Mar, Skin lesion L98.9 [place] [address] 69460- 6450 Mar, Primary insomnia F51.01 and Anxiety, generalized F41.1 [place] [address] 34106- 4328 Mar, Osteoarthritis of spine with radiculopathy, lumbosacral region M47.27 [place] [address] [place] [id number] [place] [address] 82967- 3601 Feb, [place] [address] 24582- 9684 Feb, [place] [address] 08087- 9377 Feb, Hypokalemia E87.6 [place] [address] 44995- 2733 Feb, Intractable migraine without aura and without status migrainosus G43.019 and Other chest pain R07.89 [place] [address] [place] [id number] [place] [address] 15572- 6936 Feb, [place] [address] 99799- 3131 Feb, Osteoarthritis of spine with radiculopathy, lumbosacral region M47.27 [place] [address] 46705- 4127 Feb, Hypokalemia E87.6 [place] [address] 16508- 9863 Feb, [place] [address] 43712- 5144 Feb, Primary insomnia F51.01 and Anxiety, generalized F41.1 [facility] [place] [address] 97673 -9400 Feb, Acute suppurative otitis media of both ears without spontaneous rupture of tympanic membranes, recurrence not specified H66.003 [place] [address] [place] [id number] [place] [address] 82014- 2579 Feb, [place] [address] [place] [id number] [place] [address] 21817- 7243 Jan, Osteoarthritis of spine with radiculopathy, lumbosacral region M47.27 [place] [address] [place] [id number] [place] [address] 45385- 0164 Jan, Primary insomnia F51.01 and Anxiety, generalized F41.1 [place] [address] 16081- 4232 Jan, Chronic pain due to trauma G89.21 ; Left otitis media with effusion H65.92 and Otalgia of left ear H92.02 [facility] [address] [place] [address] 39183 -1765 Jan, Bilateral otitis media with effusion H65.93 [place] [address] 89997- 3487 Dec, [place] [address] 91783- 1276 Dec, Primary insomnia F51.01 and Anxiety, generalized F41.1 [place] [address] 72123- 7827 Nov, [place] [address] 03092- 1382 Nov, [place] [address] 48794- 0417 Nov, Anxiety, generalized F41.1 [place] [address] 39733- 2543 Nov, Pernicious anemia D51.0 [place] [address] 77828- 1183 Nov, Primary insomnia F51.01 [place] [address] 58366- 1962 Nov, Encounter for well woman exam with routine gynecological exam Z01.419 ; Screening breast examination Z12.31 and Otalgia of left ear H92.02 [place] [address] 79067- 1258 Oct, [facility] [address] 35232 -5129 Oct, Insect bite (nonvenomous) of right upper arm, initial encounter S40.861A [place] [address] 15111- 1468 Oct, Pernicious anemia D51.[address] 40800- 4271 07 Oct, 2016 Anxiety, generalized F41.1 and Pernicious anemia D51.0 [place] [address] [place] [id number] [place] [address] 05730- 4867 Oct, Encounter to establish care with new doctor Z76.89 ; Moderate episode of recurrent major depressive disorder F33.1 ; Empty sella syndrome E23.6 ; Seasonal allergic rhinitis, unspecified allergic rhinitis trigger J30.2 ; Essential hypertension I10 and Osteoarthritis of spine with radiculopathy, lumbosacral region M47.27 [place] [address] 59274- 0982 Aug, [place] [address] 70575- 6398 Aug, [place] [address] 94138- 4515 13 Aug, 2016 Anxiety, generalized F41.1 [place] [address] 73082- 4660 08 Aug, 2016 [place] [address] 46143- 6752 07 Aug, 2016 Primary insomnia F51.01 ; Essential hypertension I10 ; Empty sella syndrome E23.6 and Chronic pain due to trauma G89.21 [place] [address] [place] [id number] [place] [address] 95100- 1877 July, Primary insomnia F51.01 [facility] [id number] [place] [address] 71050 -4947 July, Seasonal allergic rhinitis, unspecified allergic rhinitis trigger J30.2 and Acute suppurative otitis media of right ear without spontaneous rupture of tympanic membrane, recurrence not specified H66.001 [facility] [address] [id number] [place] [address] 07473 -4506 July, Acute suppurative otitis media of left ear without spontaneous rupture of tympanic membrane, recurrence not specified H66.002 [place] [address] 22306- 4789 July, [facility] [address] [place] [address] 83871- 9453 July, Anxiety, generalized F41.1 [facility] [id number] [place] [address] 50614- 9240 Jun, [facility] [id number] [place] [address] 24296- 0050 Jun, Primary insomnia F51.01 [facility] [id number] [place] [address] 40608- 6119 Jun, Empty sella syndrome E23.6 ; Primary insomnia F51.01 and Hypokalemia E87.6 [facility] [id number] [place] [address] 22295- 1570 Jun, [facility] [id number] [place] [address] 25508- 4195 Jun, [facility] [id number] [place] [address] 47267- 0372 Jun, Empty sella syndrome E23.6 [facility] [id number] [place] [address] 83680- 0268 Jun, Anxiety, generalized F41.1 [facility] [id number] [place] [address] 78945- 2033 Jun, [facility] [id number] [place] [address] 35903- 0227 Jun, Empty sella syndrome E23.6 [facility] [id number] [place] [address] 32564- 2891 May, [facility] [id number] [place] [address] 82934- 5127 May, [facility] [id number] [place] [address] 64201- 6404 May, Empty sella syndrome E23.6 [facility] [id number] [place] [address] 42404- 6091 May, [facility] [address] [id number] [place] [address] 10691- 1944 May, [facility] [address] [place] [id number] [place] [address] 44567- 5446 May, Primary insomnia F51.01 [facility] [address] 43933- 9866 May, [place] [address] [place] [id number] [place] [address] 08537- 7383 May, Nausea R11.0 ; Other headache syndrome G44.89 and Malignant hypertension I10 [place] [address] [place] [id number] [place] [address] 37638- 4201 07 May, 2016 Anxiety, generalized F41.1 [place] [address] [place] [id number] [place] [address] 10218- 8676 28 Apr, 2016 Major depressive disorder, recurrent episode, moderate F33.1 [place] [address] [place] [id number] [place] [address] 67330- 3770 28 Apr, 2016 Moderate episode of recurrent major depressive disorder F33.1 [place] [address] [place] [id number] [place] [address] 88394- 2695 27 Apr, 2016 Other chronic postprocedural pain G89.28 [place] [address] [place] [id number] [place] [address] 52776- 2336 15 Apr, 2016 Major depressive disorder, recurrent episode, moderate F33.1 [facility] [address] [place] [id number] [place] [address] 59663- 7752 07 Apr, 2016 Anxiety, generalized F41.1 [facility] [address] [place] [id number] [place] [address] 41739- 9567 03 Apr, 2016 [facility] [address] [place] [id number] [place] [address] 58710- 4265 Mar, Other chronic postprocedural pain G89.28 ; Status post craniotomy Z98.890 ; Encounter for drug screening Z02.83 and Hematuria R31.9 [place] [address] 15358- 8833 Mar, Major depressive disorder, recurrent episode, moderate F33.[address] 10564- 2540 Mar, [place] [address] 28113- 1676 Mar, Anxiety, generalized F41.[address] 98240- 2294 Mar, Anxiety, generalized F41.1 and Pernicious anemia D51.[address] 55611- 6034 Mar, Colloid cyst of third ventricle 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 and Status post craniotomy Z98.890 [place] [address] 28073- 6752 Mar, Primary insomnia F51.[address] 62681- 4132 Feb, [address] 71133- 9373 Feb, Encounter to establish care Z76.89 ; Status post craniotomy Z98.890 ; Colloid cyst of third ventricle 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 ADELIA Sandersl PLAN OF CARE Activity Details Follow Up 3 Months, prn Reason:CHM/Pain VITAL SIGNS Height 67 in 2017-09-21 Weight 145.7 lbs 2017-09-21 Temperature 99.0 degrees Fahrenheit 2017-09-21 Heart Rate 62 bpm 2017-09-21 Respiratory Rate 20 2017-09-21 BMI 22.82 kg/m2 2017-09-21 Blood pressure systolic 114 mmHg 2017-09-21 Blood pressure diastolic 80 mmHg 2017-09-21 MEDICATIONS Medication Instructions Dosage Frequency Start Date End Date Duration Status Metoprolol Tartrate 25 MG Oral Twice a day 1/2 tablet 12h Aug, Active Tylenol Active Ambien 10 mg Orally Once a day 1 tablet at bedtime as needed 24h Mar, Active Flonase 50 MCG/ACT Nasally Once a day 1 spray in each nostril 24h Jun, 30 day(s) Active Chlorthalidone 25 MG Orally Once a day 1/2 tablet 24h Feb, Active Duloxetine HCl 30 MG Orally Once a day in the AM 1 capsule Active Vitamin D 400 UNIT Orally Once a day 2 capsules 24h Active Potassium Chloride Jaycee ER 10 MEQ TAKE ONE TABLET BY MOUTH ONCE DAILY WITH FOOD Active Oxycodone-Acetaminophen 7.5-325 MG Orally 3 times a day 1 tablet as needed 8h Aug, Active Amlodipine Besylate 5 MG Orally Once a day 1 tablet 24h Feb, Active Cyanocobalamin 1000 MCG/ML INJECT 1 ML INTRAMUSCULARLY ONCE MONTHLY 28 Active BD Syringe/Needle 23GX1 For use with injectable B12 90 days Active Ibuprofen 200 mg Orally Once a day 1 tablet with food or milk as needed 24h Active Tizanidine HCl 4 MG TAKE ONE TABLET BY MOUTH THREE TIMES DAILY NEEDED Active Pravastatin Sodium 80 MG TAKE ONE TABLET BY MOUTH ONCE DAILY Active Lisinopril 40 MG Orally Once a day 1 tablet 24h Active BD Syringe/Needle 23GX1 For use with injectable B12 Active Folic Acid 400 MCG Orally Once a day 1 tablet 24h Active Xanax 0.5 MG Orally Three times a day 1 tablet 8h Active RESULTS No Results PROCEDURES Procedure Date Ordered Result Body Site [facility] VISIT ESTABLISHED PATIENT September 21, 2017 INSTRUCTIONS MEDICATIONS ADMINISTERED No Known Medications [...] Hospitalization History surgery only Hospitalization History . Lizella's heart 02/2017
--- OUTSIDE RECORDS SUMMARY | 2017-12-25 03:12 | XMS REPORT ---
Author Author CORRALOSBALDO New Organization [facility] Address [address] [place] [address] Care Team Providers Care [employer] Name Role Phone OSBALDO CORRAL Unavailable PROBLEMS Type Condition ICD9-CM Code DRK88-CR Code Onset Dates Condition Status SNOMED Code Problem Primary insomnia F51.01 Active 9628203 Problem Major depressive disorder, recurrent episode, moderate F33.1 Active 879523245 Problem Anxiety, generalized F41.1 Active 48853031 Problem Vitamin B12 deficiency anemia due to intrinsic factor deficiency D51.0 Active 05908122 Problem Migraine without status migrainosus, not intractable, unspecified migraine type G43.909 Active 53141326 Problem Chronic pain due to trauma G89.21 Active 885964650 Problem Essential hypertension I10 Active 74481714 Problem Adjustment disorder with mixed anxiety and depressed mood F43.23 Active 91866985 Problem Seasonal allergic rhinitis, unspecified allergic rhinitis trigger J30.2 Active 084839323 Problem Empty sella syndrome E23.6 Active 867740578 Problem 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 Active 96047622 Problem Elevated serum creatinine R79.89 Active 054301372 Problem Pernicious anemia D51.0 Active 22978613 Problem Hypokalemia E87.6 Active 75030830 Problem Other hyperlipidemia E78.4 Active 38670933 ALLERGIES No Information ENCOUNTERS Encounter Location Date Diagnosis [facility] [address] [facility] [id number] [address] Nov, [facility] [address], [place] [address] Oct, [facility] [address], [place] [address] Oct, Essential hypertension I10 [facility] [address] [id number] [address] Oct, [place] [id number] [place] [address]- 4144 Oct, [place] [address] [address] Oct, Essential hypertension I10 ; Chronic nausea R11.0 ; Hypokalemia E87.6 ; Abnormal thyroid stimulating hormone (TSH) level R79.89 and Recurrent acute suppurative otitis media without spontaneous rupture of left tympanic membrane H66.005 [place] [id number] [place] [address] 56265- 9095 Oct, [place] [address] [address]- [address] Oct, Chronic pain due to trauma G89.21 and Anxiety, generalized F41.[address] [address]- [address] Oct, [place] [id number] [place] [address] 41082- 8764 Sep, Anxiety, generalized F41.1 and Chronic pain due to trauma G89.21 [place] [id number] [place] [address] 65223- 7696 Sep, [place] [id number] [place] [address] 97094- 6447 Sep, Otalgia of left ear H92.02 and Low pressure hydrocephalus G91.2 [place] [id number] [place] [address] 56713- 0302 Sep, [place] [id number] [place] [address] 36635- 8653 Aug, Essential hypertension I10 ; Colloid cyst of third ventricle Q04.6 ; Empty sella syndrome E23.6 ; Pernicious anemia D51.0 ; Anxiety , generalized F41.1 ; Major depressive disorder, recurrent episode, moderate F33.1 ; Primary insomnia F51.01 ; Hypokalemia E87.6 and Chronic pain due to trauma G89.21 [place] [address] [address]- [address] Aug, [place] [address] [place] [address]- [address] Aug, Anxiety, generalized F41.1 and Osteoarthritis of spine with radiculopathy, lumbosacral region M47.27 [facility] [address] [address]- [address] Aug, [place] [address] 47[address]- [address] Aug, Primary insomnia F51.01 [place] [address] 33[address]- 18[address] July, Anxiety, generalized F41.1 and Osteoarthritis of spine with radiculopathy, lumbosacral region M47.27 [place] [address] [address]- 3548 July, Essential hypertension I10 [place] [address] [address]- 2393 July, Major depressive disorder, recurrent episode, moderate F33.1 [place] [address] [address]- 29[address] July, Primary insomnia F51.01 [place] [address] [address]27- 59[address] Jun, Anxiety, generalized F41.1 and Osteoarthritis of spine with radiculopathy, lumbosacral region M47.27 [facility] [address] [address] Jun, Acute frontal sinusitis, recurrence not specified J01.10 ; Sinus pressure J34.89 ; Post-nasal drip R09.82 and Sore throat J02.9 [facility] [address] 33265- 9506 Jun, Primary insomnia F51.01 [facility] [address] [place] 686432- [address] May, Anxiety, generalized F41.1 and Osteoarthritis of spine with radiculopathy, lumbosacral region M47.27 [facility] [address] [address]- [address]79 May, Essential hypertension I10 ; Colloid cyst of third ventricle 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.6 ; Empty sella syndrome E23.6 ; Pernicious anemia D51.0 ; Major depressive disorder, recurrent episode, moderate F33.1 ; Primary insomnia F51.01 ; Other hyperlipidemia E78.4 and Anxiety, generalized F41.1 [place] [address] 6[address]- 4414 May, Vitamin B12 deficiency anemia due to intrinsic factor deficiency D51.0 and Pernicious anemia D51.0 [facility] [address] [address] May, Migraine without status migrainosus, not intractable, unspecified migraine type G43.909 [facility] [address] 67[address]- 4663 May, [facility] [address] 305[address]- 0976 May, [facility] [address] [place] [id number]- [address] May, Osteoarthritis of spine with radiculopathy, lumbosacral region M47.27 and Primary insomnia F51.01 [facility] [address] [address]- 79[address] May, Osteoarthritis of spine with radiculopathy, lumbosacral region M47.27 and Anxiety, generalized F41.1 [facility] [address] 77[address]- 6053 May, [facility] [id number] [place] [address] 17530- 3239 Apr, [place] [address] 91616- 8580 Apr, [place] [id number] [place] [address] 71889- 9701 Apr, Anxiety, generalized F41.1 ; Major depressive disorder, recurrent episode, moderate F33.1 ; Moderate episode of recurrent major depressive disorder F33.1 and Adjustment disorder with mixed anxiety and depressed mood F43.23 [place] [address] [address]- 6[address] Apr, Major depressive disorder, recurrent episode, moderate F33.1 ; Anxiety, generalized F41.1 ; Essential hypertension I10 ; Primary insomnia F51.01 and Colloid cyst of third ventricle Q04.[address] [address]- [address] 09 Apr, 2017 Other chest pain R07.89 ; Sinus bradycardia R00.1 ; Essential hypertension I10 and Other hyperlipidemia E78.[address] [address]- [address] 08 Apr, 2017 Primary insomnia F51.01 [place] [address] 60967- [address] 06 Apr, 2017 [place] [address] 9[address]- 2796 Apr, Anxiety, generalized F41.1 [place] [id number] [place] [address] 96091- 5784 Apr, Osteoarthritis of spine with radiculopathy, lumbosacral region M47.27 [place] [id number] [place] [address] 48537- 6154 Mar, Intractable migraine without aura and without status migrainosus G43.019 and Dyshidrotic hand dermatitis L30.1 [facility] [id number] [place] [address] 60019 -5071 Mar, Skin infection L08.9 [place] [address] [address]- [address] Mar, [facility] [address] [address] Mar, Skin lesion L98.9 [place] [address] 66915- 8559 Mar, Primary insomnia F51.01 and Anxiety, generalized F41.1 [place] [address] 13270- 2796 Mar, Osteoarthritis of spine with radiculopathy, lumbosacral region M47.27 [place] [id number] [place] [address] 25536- 4099 Feb, [place] [address] [address]- 8640 Feb, [place] [id number] [place] [address] 90866- 9114 Feb, Hypokalemia E87.6 [place] [id number] [place] [address] 81242- 7119 22 Feb, 2017 Intractable migraine without aura and without status migrainosus G43.019 and Other chest pain R07.89 [place] [id number] [place] [address] 36514- 5694 14 Feb, 2017 [place] [id number] [place] [address] 42268- 5725 Feb, Osteoarthritis of spine with radiculopathy, lumbosacral region M47.27 [place] [id number] [place] [address] 96693- 7436 13 Feb, 2017 Hypokalemia E87.6 [place] [address] 54979- 6135 Feb, [facility] [id number] [place] [address] 52045- 7731 Feb, Primary insomnia F51.01 and Anxiety, generalized F41.1 [facility] [address] [place] [address] 28759 -6512 Feb, Acute suppurative otitis media of both ears without spontaneous rupture of tympanic membranes, recurrence not specified H66.003 [facility] [id number] [place] [address] 81310- 2233 Feb, [place] [address] 73971- 2208 Jan, Osteoarthritis of spine with radiculopathy, lumbosacral region M47.27 [place] [id number] [place] [address] 35907- 3022 Jan, Primary insomnia F51.01 and Anxiety, generalized F41.1 [place] [id number] [place] [address] 65218- 4706 Jan, Chronic pain due to trauma G89.21 ; Left otitis media with effusion H65.92 and Otalgia of left ear H92.02 [facility] [address] [place] [address] 05255 -6417 Jan, Bilateral otitis media with effusion H65.93 [place] [address] [place] [address] 89648- 3459 Dec, [place] [id number] [place] [address] 32590- 0308 Dec, Primary insomnia F51.01 and Anxiety, generalized F41.1 [place] [id number] [place] [address] 92976- 5104 Nov, [place] [id number] [place] [address] 65962- 8019 Nov, [place] [address] 11759- 7971 13 Nov, 2016 Anxiety, generalized F41.1 [place] [address] 19814- 2019 12 Nov, 2016 Pernicious anemia D51.0 [place] [address] 99622- 0839 11 Nov, 2016 Primary insomnia F51.01 [place] [address] 07842- 0675 Nov, Encounter for well woman exam with routine gynecological exam Z01.419 ; Screening breast examination Z12.31 and Otalgia of left ear H92.02 [place] [address] 24093- 2338 15 Oct, 2016 [facility] [address] 34956 -7668 14 Oct, 2016 Insect bite (nonvenomous) of right upper arm, initial encounter S40.861A [place] [address] 17352- 4831 Oct, Pernicious anemia D51.0 [place] [address] 79702- 9449 Oct, Anxiety, generalized F41.1 and Pernicious anemia D51.0 [place] [address] 98792- 2579 Oct, Encounter to establish care with new doctor Z76.89 ; Moderate episode of recurrent major depressive disorder F33.1 ; Empty sella syndrome E23.6 ; Seasonal allergic rhinitis, unspecified allergic rhinitis trigger J30.2 ; Essential hypertension I10 and Osteoarthritis of spine with radiculopathy, lumbosacral region M47.27 [place] [address] 32141- 3314 Aug, [place] [address] 48314- 9752 Aug, [facility] [id number] [place] [address] 29155- 2299 Aug, Anxiety, generalized F41.1 [facility] [id number] [place] [address] 08144- 8891 Aug, [place] [id number] [place] [address] 78623- 2754 Aug, Primary insomnia F51.01 ; Essential hypertension I10 ; Empty sella syndrome E23.6 and Chronic pain due to trauma G89.21 [place] [id number] [place] [address] 74091- 8368 July, Primary insomnia F51.01 [facility] [address] [place] [address] 83228 -1864 July, Seasonal allergic rhinitis, unspecified allergic rhinitis trigger J30.2 and Acute suppurative otitis media of right ear without spontaneous rupture of tympanic membrane, recurrence not specified H66.001 [facility] [id number] [place] [address] 50349 -5918 July, Acute suppurative otitis media of left ear without spontaneous rupture of tympanic membrane, recurrence not specified H66.002 [place] [id number] [place] [address] 57388- 0992 July, [facility] [id number] [place] [address] 14663- 6476 July, Anxiety, generalized F41.1 [place] [id number] [place] [address] 20220- 0440 Jun, [place] [id number] [place] [address] 11044- 1473 Jun, Primary insomnia F51.01 [facility] [address] [place] [address] 10701- 1372 Jun, Empty sella syndrome E23.6 ; Primary insomnia F51.01 and Hypokalemia E87.6 [facility] [id number] [place] [address] 67252- 1303 Jun, [facility] [id number] [place] [address] 13844- 4580 Jun, [facility] [id number] [place] [address] 88754- 2701 Jun, Empty sella syndrome E23.6 [facility] [id number] [place] [address] 87158- 7850 Jun, Anxiety, generalized F41.1 [facility] [address] 19593- 0586 Jun, [facility] [id number] [place] [address] 16272- 5599 Jun, Empty sella syndrome E23.6 [facility] [id number] [place] [address] 10751- 7284 May, [facility] [id number] [place] [address] 93400- 0414 May, [facility] [id number] [place] [address] 55713- 7189 May, Empty sella syndrome E23.6 [facility] [id number] [place] [address] 65630- 4325 May, [facility] [id number] [place] [address] 76513- 8055 May, [facility] [id number] [place] [address] 32637- 1324 May, Primary insomnia F51.01 [facility] [id number] [place] [address] 88530- 3280 May, [facility] [id number] [place] [address] 30461- 4266 May, Nausea R11.0 ; Other headache syndrome G44.89 and Malignant hypertension I10 [facility] [id number] [place] [address] 43803- 3068 07 May, 2016 Anxiety, generalized F41.1 [facility] [id number] [place] [address] 82513- 4370 28 Apr, 2016 Major depressive disorder, recurrent episode, moderate F33.1 [facility] [id number] [place] [address] 77511- 2459 Apr, Moderate episode of recurrent major depressive disorder F33.1 [facility] [id number] [place] [address] 51632- 8066 27 Apr, 2016 Other chronic postprocedural pain G89.28 [facility] [id number] [place] [address] 10639- 7022 15 Apr, 2016 Major depressive disorder, recurrent episode, moderate F33.1 [facility] [id number] [place] [address] 44297- 6156 07 Apr, 2016 Anxiety, generalized F41.1 [facility] [id number] [place] [address] 00568- 0359 03 Apr, 2016 [facility] [id number] [place] [address] 03670- 2394 Mar, Other chronic postprocedural pain G89.28 ; Status post craniotomy Z98.890 ; Encounter for drug screening Z02.83 and Hematuria R31.9 [facility] [address] [place] [address] 97563- 1359 Mar, Major depressive disorder, recurrent episode, moderate F33.1 [facility] [id number] [place] [address] 59145- 1509 Mar, [facility] [id number] [place] [address] 57493- 9292 Mar, Anxiety, generalized F41.1 [facility] [id number] [address]- 7190 Mar, Anxiety, generalized F41.1 and Pernicious anemia D51.0 [place] [id number] [place] [address] 63443- 1315 Mar, Colloid cyst of third ventricle 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 and Status post craniotomy Z98.890 [place] [id number] [place] [address] 28459- 7519 Mar, Primary insomnia F51.01 [place] [address] [place] [address] 62266- 7893 Feb, [place] [address] 13322- 0651 Feb, Encounter to establish care Z76.89 ; [...] a day 1 tablet as needed 8h 18 Aug, 2017 28 days Active Xanax 0.5 MG Orally Three times a day 1 tablet 8h 28 days Active RESULTS No Results PROCEDURES No Known procedures INSTRUCTIONS MEDICATIONS ADMINISTERED No Known Medications MEDICAL (GENERAL) HISTORY Type Description Date Medical History HTN Medical History Hypokalemia since cranioplasty in may 2015 Medical History Insomnia longstanding Ambien works at [employer] Medical History Hypercholesterolemia Medical History prenicious anemia [...] Hospitalization History surgery only Hospitalization History . [facility] 02/2017
--- OUTSIDE RECORDS SUMMARY | 2017-12-25 03:12 | XMS REPORT ---
Author Author CORRALOSBALDO New Organization [facility] Address [address] [place] [address] Care Team Providers Care Cardiology Technician Name Role Phone OSBALDO CORRAL Unavailable PROBLEMS Type Condition ICD9-CM Code YJA12-UB Code Onset Dates Condition Status SNOMED Code Problem Anxiety, generalized F41.1 Active 98289761 Problem Essential hypertension I10 Active 09737603 Problem Major depressive disorder, recurrent episode, moderate F33.1 Active 809592347 Problem Abnormal laboratory test R89.9 Active 143415349 Problem Vitamin B12 deficiency anemia due to intrinsic factor deficiency D51.0 Active 72556158 Problem Seasonal allergic rhinitis, unspecified allergic rhinitis trigger J30.2 Active 931252271 Problem Chronic pain due to trauma G89.21 Active 930070748 Problem Migraine without status migrainosus, not intractable, unspecified migraine type G43.909 Active 29137642 Problem Adjustment disorder with mixed anxiety and depressed mood F43.23 Active 24498859 Problem Elevated serum creatinine R79.89 Active 208859333 Problem 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 Active 27033094 Problem Pernicious anemia D51.0 Active 73504782 Problem Hypokalemia E87.6 Active 44894839 Problem Other hyperlipidemia E78.4 Active 81320407 Problem Empty sella syndrome E23.6 Active 843772537 Problem Primary insomnia F51.01 Active 2516250 ALLERGIES No Information ENCOUNTERS Encounter Location Date Diagnosis [facility] [address] [facility] [id number] [address] Nov, [facility] [address], [place] [address] Oct, Abnormal laboratory test R89.9 [facility] [id number] [address] Oct, [facility] [address], [place] [address] Oct, [facility] [id number] [place] [address] 99400- 8721 Oct, Essential hypertension I10 [facility] [id number] [place] [address] 71224- 4950 Oct, [facility] [id number] [place] [address] 02875- 8677 Oct, [facility] [id number] [place] [address] 52587- 6154 Oct, Essential hypertension I10 ; Chronic nausea R11.0 ; Hypokalemia E87.6 ; Abnormal thyroid stimulating hormone (TSH) level R79.89 and Recurrent acute suppurative otitis media without spontaneous rupture of left tympanic membrane H66.005 [place] [id number] [place] [address] 33843- 0891 Oct, [facility] [id number] [place] [address] 31198- 8641 Oct, Chronic pain due to trauma G89.21 and Anxiety, generalized F41.1 [place] [id number] [place] [address] 15704- 8759 Oct, [place] [id number] [place] [address] 97683- 3754 Sep, Anxiety, generalized F41.1 and Chronic pain due to trauma G89.21 [facility] [id number] [place] [address] 77581- 4144 Sep, [facility] [id number] [place] [address] 54714- 9543 Sep, Otalgia of left ear H92.02 and Low pressure hydrocephalus G91.2 [facility] [id number] [place] [address] 51545- 5444 Sep, [facility] [id number] [place] [address] 81955- 4599 Aug, Essential hypertension I10 ; 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 ; Empty sella syndrome E23.6 ; Pernicious anemia D51.0 ; Anxiety , generalized F41.1 ; Major depressive disorder, recurrent episode, moderate F33.1 ; Primary insomnia F51.01 ; Hypokalemia E87.6 and Chronic pain due to trauma G89.21 [place] [id number] [place] [address] 34669- 8354 Aug, [place] [id number] [place] [address] 26128- 3061 Aug, Anxiety, generalized F41.1 and Osteoarthritis of spine with radiculopathy, lumbosacral region M47.27 [place] [id number] [place] [address] 57633- 3042 Aug, [place] [id number] [place] [address] 11695- 3008 Aug, Primary insomnia F51.01 [facility] [id number] [place] [address] 38588- 6798 July, Anxiety, generalized F41.1 and Osteoarthritis of spine with radiculopathy, lumbosacral region M47.27 [place] [id number] [place] [address] 51607- 7910 July, Essential hypertension I10 [place] [id number] [place] [address] 69446- 3674 July, Major depressive disorder, recurrent episode, moderate F33.1 [place] [id number] [place] [address] 21846- 3263 July, Primary insomnia F51.01 [place] [id number] [place] [address] 69527- 6140 Jun, Anxiety, generalized F41.1 and Osteoarthritis of spine with radiculopathy, lumbosacral region M47.27 [facility] [id number] [place] [address] 25752 -4223 Jun, Acute frontal sinusitis, recurrence not specified J01.10 ; Sinus pressure J34.89 ; Post-nasal drip R09.82 and Sore throat J02.9 [place] [address] 72426- 5415 Jun, Primary insomnia F51.01 [place] [address] 13834- 3872 May, Anxiety, generalized F41.1 and Osteoarthritis of spine with radiculopathy, lumbosacral region M47.27 [place] [address] 43197- 9809 May, Essential hypertension I10 ; Colloid cyst of third ventricle Q04.6 ; Empty sella syndrome E23.6 ; Pernicious anemia D51.0 ; Major depressive disorder, recurrent episode, moderate F33.1 ; Primary insomnia F51.01 ; Other hyperlipidemia E78.4 and Anxiety, generalized F41.1 [place] [address] 33042- 3776 May, Vitamin B12 deficiency anemia due to intrinsic factor deficiency D51.0 and Pernicious anemia D51.0 [facility] [address] 69[address] -[address]13 May, Migraine without status migrainosus, not intractable, unspecified migraine type G43.909 [place] [id number] [place] [address] 07001- 0311 May, [place] [address] 76142- 9132 May, [place] [address] 86082- 6480 May, Osteoarthritis of spine with radiculopathy, lumbosacral region M47.27 and Primary insomnia F51.01 [place] [address] 93035- 3432 May, Osteoarthritis of spine with radiculopathy, lumbosacral region M47.27 and Anxiety, generalized F41.1 [place] [address] [address]- 4491 May, [place] [address] 00465- 2772 Apr, [place] [place] [address] 691473- 2713 Apr, [place] [address] 24137- 4133 Apr, Anxiety, generalized F41.1 ; Major depressive disorder, recurrent episode, moderate F33.1 ; Moderate episode of recurrent major depressive disorder F33.1 and Adjustment disorder with mixed anxiety and depressed mood F43.[address] 75016- 9804 Apr, Major depressive disorder, recurrent episode, moderate F33.1 ; Anxiety, generalized F41.1 ; Essential hypertension I10 ; Primary insomnia F51.01 and Colloid cyst of third ventricle Q04.[address] 90798- 1102 09 Apr, 2017 Other chest pain R07.89 ; Sinus bradycardia R00.1 ; Essential hypertension I10 and Other hyperlipidemia E78.4 [place] [address] 58357- 3396 08 Apr, 2017 Primary insomnia F51.01 [place] [address] 54065- 8477 Apr, [address] 69212- 8530 Apr, Anxiety, generalized F41.[address] 79531- 7965 Apr, Osteoarthritis of spine with radiculopathy, lumbosacral region M47.27 [place] [address] 02049- 6037 Mar, Intractable migraine without aura and without status migrainosus G43.019 and Dyshidrotic hand dermatitis L30.1 [facility] [address] 03625 -0648 Mar, Skin infection L08.9 [place] [address] 81782- 8304 Mar, [facility] [address] 45810 -5408 Mar, Skin lesion L98.9 [place] [address] 21046- 9344 Mar, Primary insomnia F51.01 and Anxiety, generalized F41.1 [place] [address] 52954- 7475 Mar, Osteoarthritis of spine with radiculopathy, lumbosacral region M47.27 [place] [address] 93273- 9763 Feb, [place] [address] 72450- 8425 Feb, [place] [address] 51551- 6721 Feb, Hypokalemia E87.6 [place] [address] 25373- 2601 Feb, Intractable migraine without aura and without status migrainosus G43.019 and Other chest pain R07.89 [place] [address] 87675- 6289 Feb, [place] [address] 85869- 5981 Feb, Osteoarthritis of spine with radiculopathy, lumbosacral region M47.27 [place] [id number] [place] [address] 72331- 4746 Feb, Hypokalemia E87.6 [facility] [id number] [place] [address] 57642- 8949 Feb, [facility] [address] 91091- 4077 Feb, Primary insomnia F51.01 and Anxiety, generalized F41.1 [facility] [id number] [place] [address] 34665 -5543 Feb, Acute suppurative otitis media of both ears without spontaneous rupture of tympanic membranes, recurrence not specified H66.003 [place] [id number] [place] [address] 29216- 8718 Feb, [place] [address] 10012- 8106 Jan, Osteoarthritis of spine with radiculopathy, lumbosacral region M47.27 [place] [id number] [place] [address] 44695- 4451 Jan, Primary insomnia F51.01 and Anxiety, generalized F41.1 [place] [id number] [place] [address] 40410- 2301 Jan, Chronic pain due to trauma G89.21 ; Left otitis media with effusion H65.92 and Otalgia of left ear H92.02 [facility] [id number] [place] [address] 70678 -2131 Jan, Bilateral otitis media with effusion H65.93 [facility] [id number] [place] [address] 21072- 9716 Dec, [facility] [id number] [place] [address] 35146- 1707 Dec, Primary insomnia F51.01 and Anxiety, generalized F41.1 [facility] [address], [place] [address]- 4085 25 Nov, 2016 [facility] [id number] [place] [address] 62709- 9323 15 Nov, 2016 [facility] [id number] [place] [address] 13122- 7126 13 Nov, 2016 Anxiety, generalized F41.1 [place] [id number] [place] [address] 66908- 9298 12 Nov, 2016 Pernicious anemia D51.0 [place] [id number] [place] [address] 44675- 5938 11 Nov, 2016 Primary insomnia F51.01 [place] [id number] [place] [address] 24610- 7161 Nov, Encounter for well woman exam with routine gynecological exam Z01.419 ; Screening breast examination Z12.31 and Otalgia of left ear H92.02 [place] [id number] [place] [address] 64213- 8003 Oct, [facility] [id number] [place] [address] 13152 -9577 14 Oct, 2016 Insect bite (nonvenomous) of right upper arm, initial encounter S40.861A [place] [id number] [place] [address] 59298- 6941 Oct, Pernicious anemia D51.0 [place] [id number] [place] [address] 86507- 8560 07 Oct, 2016 Anxiety, generalized F41.1 and Pernicious anemia D51.0 [place] [id number] [place] [address] 07972- 9639 Oct, Encounter to establish care with new doctor Z76.89 ; Moderate episode of recurrent major depressive disorder F33.1 ; Empty sella syndrome E23.6 ; Seasonal allergic rhinitis, unspecified allergic rhinitis trigger J30.2 ; Essential hypertension I10 and Osteoarthritis of spine with radiculopathy, lumbosacral region M47.27 [facility] [id number] [place] [address] 87989- 6943 Aug, [facility] [id number] [place] [address] 97738- 1753 Aug, [place] [address] 53677- 5990 Aug, Anxiety, generalized F41.1 [place] [address] 01699- 8207 Aug, [place] [address] 84683- 0474 Aug, Primary insomnia F51.01 ; Essential hypertension I10 ; Empty sella syndrome E23.6 and Chronic pain due to trauma G89.21 [place] [address] 45036- 5466 July, Primary insomnia F51.01 [facility] [id number] [place] [address] 17380 -0981 July, Seasonal allergic rhinitis, unspecified allergic rhinitis trigger J30.2 and Acute suppurative otitis media of right ear without spontaneous rupture of tympanic membrane, recurrence not specified H66.001 [facility] [id number] [place] [address] 09001 -7352 July, Acute suppurative otitis media of left ear without spontaneous rupture of tympanic membrane, recurrence not specified H66.002 [place] [id number] [place] [address] 33067- 0864 July, [place] [address] 73141- 2955 July, Anxiety, generalized F41.1 [place] [id number] [place] [address] 34190- 2689 Jun, [facility] [address] [place] [address] 04615- 2680 Jun, Primary insomnia F51.01 [facility] [id number] [place] [address], [place] [address]- 8596 Jun, Empty sella syndrome E23.6 ; Primary insomnia F51.01 and Hypokalemia E87.6 [facility] [id number] [place] [address], [place] [address]- 5556 Jun, [facility] [id number] [place] [address], [place] [address]- 2910 Jun, [facility] [id number] [place] [address], [place] [address]- 6523 Jun, Empty sella syndrome E23.6 [facility] [id number] [place] [address], [place] [address]- 6365 Jun, Anxiety, generalized F41.1 [facility] [id number] [place] [address], [place] [address]- 6478 Jun, [facility] [id number] [place] [address] 23415- 6269 Jun, Empty sella syndrome E23.6 [facility] [id number] [place] [address] 14482- 0725 May, [facility] [id number] [place] [address] 56633- 1154 May, [facility] [id number] [place] [address] 09973- 7672 30 May, 2016 Empty sella syndrome E23.6 [facility] [id number] [place] [address] 68122- 2940 May, [facility] [id number] [place] [address] 02703- 1022 May, [facility] [id number] [place] [address] 41790- 0432 May, Primary insomnia F51.01 [facility] [id number] [place] [address] 53467- 7015 May, [facility] [id number] [place], [place] [address] 0746 May, Nausea R11.0 ; Other headache syndrome G44.89 and Malignant hypertension I10 [facility] [address] 53537- 9168 May, Anxiety, generalized F41.1 [place] [id number] [place] [address] 70744- 5887 Apr, Major depressive disorder, recurrent episode, moderate F33.1 [place] [id number] [place] [address] 19362- 9622 Apr, Moderate episode of recurrent major depressive disorder F33.1 [place] [id number] [place] [address] 32845- 9365 Apr, Other chronic postprocedural pain G89.28 [place] [id number] [place] [address] 85723- 9904 15 Apr, 2016 Major depressive disorder, recurrent episode, moderate F33.1 [facility] [id number] [place] [address] 19588- 0136 07 Apr, 2016 Anxiety, generalized F41.1 [place] [id number] [place] [address] 02531- 8505 Apr, [facility] [id number] [place] [address] 23661- 4353 Mar, Other chronic postprocedural pain G89.28 ; Status post craniotomy Z98.890 ; Encounter for drug screening Z02.83 and Hematuria R31.9 [facility] [id number] [place] [address] 69028- 1071 Mar, Major depressive disorder, recurrent episode, moderate F33.1 [place] [address] [place] [address] 17487- 6750 Mar, [place] [id number] [place] [address] 58656- 0075 Mar, Anxiety, generalized F41.1 [place] [id number] [place] [address] 78025- 2745 10 Mar, 2016 Anxiety, generalized F41.1 and Pernicious anemia D51.0 [place] [id number] [place] [address] 65006- 9315 Mar, Colloid cyst of third ventricle Q04.6 and Status post craniotomy Z98.890 [place] [id number] [place] [address] 31714- 3278 Mar, Primary insomnia F51.01 [place] [id number] [place] [address] 57703- 9106 Feb, [place] [id number] [place] [address] 55617- 1067 Feb, Encounter to establish care Z76.89 ; Status post craniotomy Z98.890 ; Colloid cyst of third ventricle 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 ; Hypokalemia E87.6 ; Essential hypertension I10 ; Other hyperlipidemia E78.4 ; Pernicious anemia D51.0 ; Other depression F32.89 and Chronic nausea R11.0 IMMUNIZATIONS No Known Immunizations SOCIAL HISTORY Never Assessed REASON FOR VISIT Medication question PLAN OF CARE VITAL SIGNS MEDICATIONS Medication Instructions Dosage Frequency Start Date End Date Duration Status Cyanocobalamin 1000 MCG/ML INJECT 1 ML INTRAMUSCULARLY ONCE MONTHLY Nov, 90 days Active BD Syringe/Needle 23GX1 For use with injectable B12 90 days Active RESULTS No Results PROCEDURES [...] Hospitalization History surgery only Hospitalization History . [place] 02/2017
--- OUTSIDE RECORDS SUMMARY | 2017-12-25 03:13 | XMS REPORT ---
Author Author CORRALHALLE NewELE Organization [facility] Address [address] [place] [address] Care Team Providers Care Drawer In Jacquard Loom Name Role Phone OSBALDO CORRAL Unavailable PROBLEMS Type Condition ICD9-CM Code [id number] Code Onset Dates Condition Status SNOMED Code Problem Primary insomnia F51.01 Active 7858181 Problem Major depressive disorder, recurrent episode, moderate F33.1 Active 966679612 Problem Anxiety, generalized F41.1 Active 21358069 Problem Vitamin B12 deficiency anemia due to intrinsic factor deficiency D51.0 Active 30860311 Problem Migraine without status migrainosus, not intractable, unspecified migraine type G43.909 Active 08452756 Problem Essential hypertension I10 Active 04645286 Problem Chronic pain due to trauma G89.21 Active 140015852 Problem Adjustment disorder with mixed anxiety and depressed mood F43.23 Active 49373878 Problem Seasonal allergic rhinitis, unspecified allergic rhinitis trigger J30.2 Active 490019723 Problem Empty sella syndrome E23.6 Active 191981145 Problem 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 Active 74550740 Problem Pernicious anemia D51.0 Active 35908796 Problem Hypokalemia E87.6 Active 54073146 Problem Other hyperlipidemia E78.4 Active 55885417 ALLERGIES No Information ENCOUNTERS Encounter Location Date Diagnosis [facility] [address] [facility] [id number] [address] Nov, [facility] [address] [id number] [address] Oct, [facility] [address] [id number] [address] Oct, Essential hypertension I10 ; Chronic nausea R11.0 ; Hypokalemia E87.6 ; Abnormal thyroid stimulating hormone (TSH) level R79.89 and Recurrent acute suppurative otitis media without spontaneous rupture of left tympanic membrane H66.005 [facility] [id number] [place] [address] 58440- 2760 Oct, [facility] [id number] [place] [address] 03720- 7449 Oct, Chronic pain due to trauma G89.21 and Anxiety, generalized F41.1 [place] [address] 01599- 5884 Oct, [facility] [id number] [place] [address] 21268- 2475 Sep, Anxiety, generalized F41.1 and Chronic pain due to trauma G89.21 [place] [id number] [place] [address] 37472- 5890 Sep, [place] [id number] [place] [address] 36132- 0416 Sep, Otalgia of left ear H92.02 and Low pressure hydrocephalus G91.2 [place] [id number] [place] [address] 95345- 3276 Sep, [place] [id number] [place] [address] 64875- 8701 Aug, Essential hypertension I10 ; 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 ; Empty sella syndrome E23.6 ; Pernicious anemia D51.0 ; Anxiety , generalized F41.1 ; Major depressive disorder, recurrent episode, moderate F33.1 ; Primary insomnia F51.01 ; Hypokalemia E87.6 and Chronic pain due to trauma G89.21 [place] [id number] [place] [address] 70793- 1637 Aug, [place] [id number] [place] [address] 38651- 8986 Aug, Anxiety, generalized F41.1 and Osteoarthritis of spine with radiculopathy, lumbosacral region M47.27 [place] [address] [id number] [address] Aug, [facility] [id number] [place] [address] 38865- 5905 Aug, Primary insomnia F51.01 [facility] [id number] [place] [address] 85205- 4214 July, Anxiety, generalized F41.1 and Osteoarthritis of spine with radiculopathy, lumbosacral region M47.27 [facility] [id number] [place] [address] 92690- 4574 July, Essential hypertension I10 [place] [address] 37977- 9042 July, Major depressive disorder, recurrent episode, moderate F33.1 [place] [id number] [place] [address] 37750- 5918 July, Primary insomnia F51.01 [place] [id number] [place] [address] 68333- 8936 Jun, Anxiety, generalized F41.1 and Osteoarthritis of spine with radiculopathy, lumbosacral region M47.27 [facility] [id number] [place] [address] 69901 -5073 Jun, Acute frontal sinusitis, recurrence not specified J01.10 ; Sinus pressure J34.89 ; Post-nasal drip R09.82 and Sore throat J02.9 [facility] [id number] [place] [address] 99253- 9856 Jun, Primary insomnia F51.01 [place] [id number] [place] [address] 79762- 2154 May, Anxiety, generalized F41.1 and Osteoarthritis of spine with radiculopathy, lumbosacral region M47.27 [facility] [id number] [place] [address] 63256- 8238 May, Essential hypertension I10 ; Colloid cyst of third ventricle Q04.6 ; Empty sella syndrome E23.6 ; Pernicious anemia D51.0 ; Major depressive disorder, recurrent episode, moderate F33.1 ; Primary insomnia F51.01 ; Other hyperlipidemia E78.4 and Anxiety, generalized F41.1 [facility] [id number] [place] [address] 66749- 3936 May, Vitamin B12 deficiency anemia due to intrinsic factor deficiency D51.0 and Pernicious anemia D51.0 [facility] [address] 9[address]68 -0209 May, Migraine without status migrainosus, not intractable, unspecified migraine type G43.909 [place] [address] 51704- 4085 May, [facility] [address] 90311- 4251 May, [place] [address] 46403- 4888 May, Osteoarthritis of spine with radiculopathy, lumbosacral region M47.27 and Primary insomnia F51.01 [place] [id number] [place] [address] 29080- 1376 May, Osteoarthritis of spine with radiculopathy, lumbosacral region M47.27 and Anxiety, generalized F41.1 [place] [id number] [place] [address] 25114- 1732 May, [place] [address] 64445- 2325 Apr, [place] [address] 48934- 6459 Apr, [place] [address] 18050- 7451 13 Apr, 2017 Anxiety, generalized F41.1 ; Major depressive disorder, recurrent episode, moderate F33.1 ; Moderate episode of recurrent major depressive disorder F33.1 and Adjustment disorder with mixed anxiety and depressed mood F43.23 [place] [address] 96534- 9128 13 Apr, 2017 Major depressive disorder, recurrent episode, moderate F33.1 ; Anxiety, generalized F41.1 ; Essential hypertension I10 ; Primary insomnia F51.01 and Colloid cyst of third ventricle Q04.[address] 30903- 5373 09 Apr, 2017 Other chest pain R07.89 ; Sinus bradycardia R00.1 ; Essential hypertension I10 and Other hyperlipidemia E78.[address] 62758- 2077 08 Apr, 2017 Primary insomnia F51.01 [place] [address] 09245- 1133 06 Apr, 2017 [place] [address] 09941- 9273 Apr, Anxiety, generalized F41.[address] 62288- 7532 Apr, Osteoarthritis of spine with radiculopathy, lumbosacral region M47.[address] 72016- 1423 Mar, Intractable migraine without aura and without status migrainosus G43.019 and Dyshidrotic hand dermatitis L30.1 [facility] [address] [address]3555 Mar, Skin infection L08.9 [place] [address] 01865- 2400 Mar, [facility] [address] 28714 -2659 Mar, Skin lesion L98.9 [place] [id number] [place] [address] 89331- 6243 Mar, Primary insomnia F51.01 and Anxiety, generalized F41.1 [facility] [address] 30616- 4100 Mar, Osteoarthritis of spine with radiculopathy, lumbosacral region M47.27 [place] [address] 65024- 7512 Feb, [facility] [id number] [place] [address] 74382- 8075 Feb, [facility] [address] 41200- 4837 Feb, Hypokalemia E87.6 [place] [id number] [place] [address] 58978- 7919 Feb, Intractable migraine without aura and without status migrainosus G43.019 and Other chest pain R07.89 [facility] [id number] [place] [address] 92286- 8391 Feb, [place] [address] 22908- 1680 Feb, Osteoarthritis of spine with radiculopathy, lumbosacral region M47.27 [place] [id number] [place] [address] 45963- 4949 Feb, Hypokalemia E87.6 [facility] [id number] [place] [address] 18869- 2824 Feb, [facility] [id number] [place] [address] 17404- 1944 Feb, Primary insomnia F51.01 and Anxiety, generalized F41.1 [facility] [address] [place] [address] 24918 -9757 Feb, Acute suppurative otitis media of both ears without spontaneous rupture of tympanic membranes, recurrence not specified H66.003 [facility] [id number] [place] [address] 27847- 8154 Feb, [facility] [address] 20996- 4650 Jan, Osteoarthritis of spine with radiculopathy, lumbosacral region M47.27 [facility] [address] 65302- 0024 Jan, Primary insomnia F51.01 and Anxiety, generalized F41.1 [facility] [address] 15541- 8911 Jan, Chronic pain due to trauma G89.21 ; Left otitis media with effusion H65.92 and Otalgia of left ear H92.02 [facility] [address] 39422 -3607 Jan, Bilateral otitis media with effusion H65.93 [facility] [address] 48465- 1153 Dec, [facility] [address] 12592- 8937 Dec, Primary insomnia F51.01 and Anxiety, generalized F41.1 [facility] [id number] [place] [address] 28563- 5094 Nov, [facility] [address] 80069- 7912 Nov, [facility] [id number] [place] [address] 77790- 5181 Nov, Anxiety, generalized F41.1 [facility] [address] 84598- 9588 Nov, Pernicious anemia D51.0 [facility] [id number] [place] [address] 95793- 3350 Nov, Primary insomnia F51.01 [place] [id number] [place] [address] 96260- 6735 01 Nov, 2016 Encounter for well woman exam with routine gynecological exam Z01.419 ; Screening breast examination Z12.31 and Otalgia of left ear H92.02 [facility] [id number] [place] [address] 06852- 0990 15 Oct, 2016 [facility] [address] 61821 -9722 14 Oct, 2016 Insect bite (nonvenomous) of right upper arm, initial encounter S40.861A [address] 24042- 2704 11 Oct, 2016 Pernicious anemia D51.0 [place] [address] 20101- 0736 07 Oct, 2016 Anxiety, generalized F41.1 and Pernicious anemia D51.0 [place] [address] 74826- 0132 Oct, Encounter to establish care with new doctor Z76.89 ; Moderate episode of recurrent major depressive disorder F33.1 ; Empty sella syndrome E23.6 ; Seasonal allergic rhinitis, unspecified allergic rhinitis trigger J30.2 ; Essential hypertension I10 and Osteoarthritis of spine with radiculopathy, lumbosacral region M47.27 [place] [id number] [place] [address] 19740- 1930 Aug, [place] [id number] [place] [address] 77608- 2975 Aug, [place] [address] 71104- 9363 13 Aug, 2016 Anxiety, generalized F41.1 [place] [id number] [place] [address] 45388- 8549 08 Aug, 2016 [place] [address] 04724- 6260 Aug, Primary insomnia F51.01 ; Essential hypertension I10 ; Empty sella syndrome E23.6 and Chronic pain due to trauma G89.21 [facility] [address] 66537- 2596 July, Primary insomnia F51.01 [facility] [address] 04917 -1209 July, Seasonal allergic rhinitis, unspecified allergic rhinitis trigger J30.2 and Acute suppurative otitis media of right ear without spontaneous rupture of tympanic membrane, recurrence not specified H66.001 [facility] [address] 44521 -7316 July, Acute suppurative otitis media of left ear without spontaneous rupture of tympanic membrane, recurrence not specified H66.002 [place] [address] 47685- 5747 July, [facility] [address] 95560- 6534 July, Anxiety, generalized F41.1 [place] [address] 05144- 2469 Jun, [facility] [address] 83136- 2865 Jun, Primary insomnia F51.01 [facility] [address] 33786- 0200 Jun, Empty sella syndrome E23.6 ; Primary insomnia F51.01 and Hypokalemia E87.6 [place] [address] 60077- 0733 Jun, [place] [address] 49130- 1170 Jun, [facility] [address] 06648- 0504 Jun, Empty sella syndrome E23.6 [facility] [id number] [place] [address] 67155- 9708 Jun, Anxiety, generalized F41.1 [facility] [id number] [place] [address] 98916- 5247 Jun, [facility] [id number] [place] [address] 49367- 7111 Jun, Empty sella syndrome E23.6 [facility] [id number] [place] [address] 10233- 9726 May, [facility] [id number] [place] [address] 42089- 1614 May, [facility] [id number] [place] [address] 54435- 8471 May, Empty sella syndrome E23.6 [facility] [address] 96860- 0240 May, [facility] [id number] [place] [address] 91550- 8859 May, [facility] [id number] [place] [address] 19578- 7639 May, Primary insomnia F51.01 [facility] [id number] [place] [address] 79860- 3400 May, [facility] [id number] [place] [address] 84150- 7427 May, Nausea R11.0 ; Other headache syndrome G44.89 and Malignant hypertension I10 [facility] [id number] [place] [address] 30645- 7870 07 May, 2016 Anxiety, generalized F41.1 [facility] [id number] [place] [address] 27914- 0789 28 Apr, 2016 Major depressive disorder, recurrent episode, moderate F33.1 [facility] [id number] [place] [address] 12724- 7412 28 Apr, 2016 Moderate episode of recurrent major depressive disorder F33.1 [place] [id number] [place] [address] 53337- 2780 27 Apr, 2016 Other chronic postprocedural pain G89.28 [place] [id number] [place] [address] 75587- 4591 15 Apr, 2016 Major depressive disorder, recurrent episode, moderate F33.1 [place] [id number] [place] [address] 57776- 2543 07 Apr, 2016 Anxiety, generalized F41.1 [place] [id number] [place] [address] 49066- 6337 03 Apr, 2016 [place] [id number] [place] [address] 52170- 0576 Mar, Other chronic postprocedural pain G89.28 ; Status post craniotomy Z98.890 ; Encounter for drug screening Z02.83 and Hematuria R31.9 [place] [id number] [place] [address] 33316- 6061 Mar, Major depressive disorder, recurrent episode, moderate F33.1 [place] [id number] [place] [address] 31748- 3545 Mar, [place] [id number] [place] [address] 91793- 5233 Mar, Anxiety, generalized F41.1 [place] [id number] [place] [address] 74824- 4399 Mar, Anxiety, generalized F41.1 and Pernicious anemia D51.0 [place] [id number] [place] [address] 80030- 5388 Mar, 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
--- OUTSIDE RECORDS SUMMARY | 2017-12-25 03:13 | XMS REPORT ---
Author Author OSBALDO CORRAL Organization [facility] Address [address] [place] [address] Care Team Providers Care Right Of Way Maintenance Supervisor Name Role Phone OSBALDO CORRAL Unavailable PROBLEMS Type Condition ICD9-CM Code ATM28-DE Code Onset Dates Condition Status SNOMED Code Problem Primary insomnia F51.01 Active 7400184 Problem Major depressive disorder, recurrent episode, moderate F33.1 Active 314395614 Problem Anxiety, generalized F41.1 Active 86954478 Problem Vitamin B12 deficiency anemia due to intrinsic factor deficiency D51.0 Active 07849704 Problem Migraine without status migrainosus, not intractable, unspecified migraine type G43.909 Active 88774739 Problem Essential hypertension I10 Active 02484624 Problem Chronic pain due to trauma G89.21 Active 634369859 Problem Adjustment disorder with mixed anxiety and depressed mood F43.23 Active 24329112 Problem Seasonal allergic rhinitis, unspecified allergic rhinitis trigger J30.2 Active 313426159 Problem Empty sella syndrome E23.6 Active 216565633 Problem 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 Active 68702760 Problem Pernicious anemia D51.0 Active 30561090 Problem Hypokalemia E87.6 Active 18629713 Problem Other hyperlipidemia E78.4 Active 84772515 ALLERGIES No Information ENCOUNTERS Encounter Location Date Diagnosis [facility] [id number] [address] Nov, [facility] [id number] [address] Oct, [facility] [address] [address] Oct, [facility] [id number] [address] Oct, Chronic pain due to trauma G89.21 and Anxiety, generalized F41.1 [place] [id number] [place] [address]4034- 4203 Oct, [facility] [id number] [place] [address] 98320- 2929 Sep, Anxiety, generalized F41.1 and Chronic pain due to trauma G89.21 [place] [address] [address]- [address] Sep, [place] [address] 96886- 2434 Sep, Otalgia of left ear H92.02 and Low pressure hydrocephalus G91.2 [place] [id number] [place] [address] 41558- 4314 Sep, [place] [address] 20[address]- 6360 Aug, Essential hypertension I10 ; Colloid cyst of third ventricle 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.6 ; Empty sella syndrome E23.6 ; Pernicious anemia D51.0 ; Anxiety , generalized F41.1 ; Major depressive disorder, recurrent episode, moderate F33.1 ; Primary insomnia F51.01 ; Hypokalemia E87.6 and Chronic pain due to trauma G89.21 [place] [id number] [place] [address] 99910- 3536 Aug, [facility] [place] [id number] [place] [address] 72036- 8193 Aug, Anxiety, generalized F41.1 and Osteoarthritis of spine with radiculopathy, lumbosacral region M47.27 [facility] [id number] [place] [address] 21269- 5293 Aug, [facility] [id number] [place] [address] 35243- 2891 Aug, Primary insomnia F51.01 [place] [id number] [place] [address] 93554- 1884 July, Anxiety, generalized F41.1 and Osteoarthritis of spine with radiculopathy, lumbosacral region M47.27 [facility] [address] [address]- 9[address] July, Essential hypertension I10 [place] [address] 23763- 5364 July, Major depressive disorder, recurrent episode, moderate F33.1 [place] [address] 84638- 5213 July, Primary insomnia F51.01 [place] [address] 66689- 2228 Jun, Anxiety, generalized F41.1 and Osteoarthritis of spine with radiculopathy, lumbosacral region M47.27 [facility] [address] [address] Jun, Acute frontal sinusitis, recurrence not specified J01.10 ; Sinus pressure J34.89 ; Post-nasal drip R09.82 and Sore throat J02.9 [place] [address] 33960- 9726 Jun, Primary insomnia F51.01 [place] [address] 62656- 5105 May, Anxiety, generalized F41.1 and Osteoarthritis of spine with radiculopathy, lumbosacral region M47.27 [place] [address] 75402- 6712 May, Essential hypertension I10 ; Colloid cyst of third ventricle Q04.6 ; Empty sella syndrome E23.6 ; Pernicious anemia D51.0 ; Major depressive disorder, recurrent episode, moderate F33.1 ; Primary insomnia F51.01 ; Other hyperlipidemia E78.4 and Anxiety, generalized F41.1 [place] [address] 38480- 3346 May, Vitamin B12 deficiency anemia due to intrinsic factor deficiency D51.0 and Pernicious anemia D51.0 [facility] [address] [address] May, Migraine without status migrainosus, not intractable, unspecified migraine type G43.909 [facility] [address] 13551- 7809 May, [facility] [address] 56437- 6657 May, [place] [address] 70100- 9820 May, Osteoarthritis of spine with radiculopathy, lumbosacral region M47.27 and Primary insomnia F51.01 [place] [address] 99275- 7268 02 May, 2017 Osteoarthritis of spine with radiculopathy, lumbosacral region M47.27 and Anxiety, generalized F41.1 [place] [address] 56807- 9603 02 May, 2017 [place] [address] 73927- 7387 28 Apr, 2017 [place] [id number] [place] [address] 03947- 6695 19 Apr, 2017 [place] [address] 72499- 3390 13 Apr, 2017 Anxiety, generalized F41.1 ; Major depressive disorder, recurrent episode, moderate F33.1 ; Moderate episode of recurrent major depressive disorder F33.1 and Adjustment disorder with mixed anxiety and depressed mood F43.23 [facility] [id number] [place] [address] 76501- 4146 13 Apr, 2017 Major depressive disorder, recurrent episode, moderate F33.1 ; Anxiety, generalized F41.1 ; Essential hypertension I10 ; Primary insomnia F51.01 and Colloid cyst of third ventricle Q04.6 [place] [address] 11682- 5682 09 Apr, 2017 Other chest pain R07.89 ; Sinus bradycardia R00.1 ; Essential hypertension I10 and Other hyperlipidemia E78.4 [place] [address] 95708- 3376 08 Apr, 2017 Primary insomnia F51.01 [place] [address] 99937- 8360 Apr, [address] [address] Apr, Anxiety, generalized F41.[address] 83157- 4007 Apr, Osteoarthritis of spine with radiculopathy, lumbosacral region M47.27 [place] [address] 02047- 4526 Mar, Intractable migraine without aura and without status migrainosus G43.019 and Dyshidrotic hand dermatitis L30.1 [facility] [place] [address] [address] Mar, Skin infection L08.[address] [address]25- 9779 Mar, [facility] [address] [address] Mar, Skin lesion L98.[address] 87560- 1386 Mar, Primary insomnia F51.01 and Anxiety, generalized F41.1 [place] [address] 15988- 0571 Mar, Osteoarthritis of spine with radiculopathy, lumbosacral region M47.27 [facility] [id number] [place] [address] 49452- 6349 Feb, [facility] [id number] [place] [address] 78665- 0376 Feb, [facility] [id number] [place] [address] 53802- 3631 Feb, Hypokalemia E87.6 [facility] [id number] [place] [address] 81398- 2067 Feb, Intractable migraine without aura and without status migrainosus G43.019 and Other chest pain R07.89 [facility] [id number] [place] [address] 42245- 2275 Feb, [facility] [address] 84184- 6612 Feb, Osteoarthritis of spine with radiculopathy, lumbosacral region M47.27 [facility] [id number] [place] [address] 77861- 8459 Feb, Hypokalemia E87.6 [facility] [id number] [place] [address] 72516- 6094 Feb, [facility] [id number] [place] [address] 12903- 6270 Feb, Primary insomnia F51.01 and Anxiety, generalized F41.1 [facility] [id number] [place] [address] 00207 -9442 Feb, Acute suppurative otitis media of both ears without spontaneous rupture of tympanic membranes, recurrence not specified H66.003 [facility] [id number] [place] [address] 03284- 9609 Feb, [facility] [id number] [place] [address] 04586- 1719 Jan, Osteoarthritis of spine with radiculopathy, lumbosacral region M47.27 [facility] [id number] [place] [address] 55410- 5164 07 Jan, 2017 Primary insomnia F51.01 and Anxiety, generalized F41.1 [facility] [address] 61826- 2582 02 Jan, 2017 Chronic pain due to trauma G89.21 ; Left otitis media with effusion H65.92 and Otalgia of left ear H92.02 [facility] [address] [address] Jan, Bilateral otitis media with effusion H65.93 [facility] [address] 37031- 8639 Dec, [facility] [address] 41261- 6462 Dec, Primary insomnia F51.01 and Anxiety, generalized F41.1 [place] [address] 68255- 4815 Nov, [facility] [address] 73612- 9599 Nov, [facility] [address] 19670- 5694 Nov, Anxiety, generalized F41.1 [place] [address] 62034- 1489 Nov, Pernicious anemia D51.0 [facility] [id number] [place] [address] 45513- 5307 11 Nov, 2016 Primary insomnia F51.01 [facility] [address] 32468- 0630 Nov, Encounter for well woman exam with routine gynecological exam Z01.419 ; Screening breast examination Z12.31 and Otalgia of left ear H92.02 [facility] [address] 36827- 3848 Oct, [facility] [id number] [place] [address] 22896 -0537 14 Oct, 2016 Insect bite (nonvenomous) of right upper arm, initial encounter S40.861A [facility] [id number] [place] [address] 85368- 0212 11 Oct, 2016 Pernicious anemia D51.0 [place] [address] 45860- 1864 07 Oct, 2016 Anxiety, generalized F41.1 and Pernicious anemia D51.0 [place] [address] 54252- 1456 Oct, Encounter to establish care with new doctor Z76.89 ; Moderate episode of recurrent major depressive disorder F33.1 ; Empty sella syndrome E23.6 ; Seasonal allergic rhinitis, unspecified allergic rhinitis trigger J30.2 ; Essential hypertension I10 and Osteoarthritis of spine with radiculopathy, lumbosacral region M47.27 [place] [address] 43929- 9498 Aug, [place] [address] 54624- 5546 Aug, [place] [id number] [place] [address] 23845- 1968 13 Aug, 2016 Anxiety, generalized F41.1 [place] [address] 93764- 0750 08 Aug, 2016 [place] [id number] [place] [address] 75763- 9572 07 Aug, 2016 Primary insomnia F51.01 ; Essential hypertension I10 ; Empty sella syndrome E23.6 and Chronic pain due to trauma G89.21 [place] [id number] [place] [address] 67052- 7477 July, Primary insomnia F51.01 [facility] [address] [place] [address] July, Seasonal allergic rhinitis, unspecified allergic rhinitis trigger J30.2 and Acute suppurative otitis media of right ear without spontaneous rupture of tympanic membrane, recurrence not specified H66.001 [facility] [id number] [place] [address] 18639 -2470 July, Acute suppurative otitis media of left ear without spontaneous rupture of tympanic membrane, recurrence not specified H66.002 [facility] [id number] [place] [address] 34368- 9726 July, [facility] [address] 77475- 1569 July, Anxiety, generalized F41.1 [facility] [id number] [place] [address] 84139- 5994 Jun, [facility] [address] 25222- 5947 Jun, Primary insomnia F51.01 [facility] [address] 47967- 0291 Jun, Empty sella syndrome E23.6 ; Primary insomnia F51.01 and Hypokalemia E87.6 [facility] [id number] [place] [address] 05414- 1312 Jun, [facility] [id number] [place] [address] 53335- 3864 Jun, [facility] [id number] [place] [address] 07657- 3739 Jun, Empty sella syndrome E23.6 [facility] [id number] [place] [address] 29976- 3361 Jun, Anxiety, generalized F41.1 [facility] [id number] [place] [address] 29474- 5865 Jun, [facility] [address] [place] [address]- 8846 Jun, Empty sella syndrome E23.6 [facility] [id number] [place] [address] 12532- 0949 May, [facility] [id number] [place] [address] 66971- 8617 May, [facility] [id number] [place] [address] 06618- 8807 May, Empty sella syndrome E23.6 [facility] [id number] [place] [address] 25666- 6545 May, [facility] [id number] [place] [address] 80176- 6476 May, [facility] [id number] [place] [address] 56618- 8400 May, Primary insomnia F51.01 [facility] [id number] [place] [address] 67458- 2008 May, [facility] [id number] [place] [address] 72964- 1832 May, Nausea R11.0 ; Other headache syndrome G44.89 and Malignant hypertension I10 [facility] [id number] [place] [address] 70507- 1517 07 May, 2016 Anxiety, generalized F41.1 [facility] [id number] [place] [address] 16500- 2712 Apr, Major depressive disorder, recurrent episode, moderate F33.1 [facility] [id number] [place] [address] 29805- 5170 Apr, Moderate episode of recurrent major depressive disorder F33.1 [facility] [id number] [place] [address] 55373- 1528 27 Apr, 2016 Other chronic postprocedural pain G89.28 [facility] [address] [place] [address]- 4236 15 Apr, 2016 Major depressive disorder, recurrent episode, moderate F33.1 [place] [address] 76313- 0127 07 Apr, 2016 Anxiety, generalized F41.1 [place] [address] 74094- 3510 03 Apr, 2016 [place] [address] 72864- 6250 Mar, Other chronic postprocedural pain G89.28 ; Status post craniotomy Z98.890 ; Encounter for drug screening Z02.83 and Hematuria R31.9 [place] [address] 63853- 7166 Mar, Major depressive disorder, recurrent episode, moderate F33.1 [place] [address] 21525- 9461 12 Mar, 2016 [place] [address] 37381- 7876 Mar, Anxiety, generalized F41.1 [place] [address] 67258- 2227 Mar, Anxiety, generalized F41.1 and Pernicious anemia D51.0 [place] [address] 36602- 2928 Mar, Colloid cyst of third ventricle Q04.6 and Status post craniotomy Z98.890 [place] [id number] [place] [address] 35975- 1836 Mar, Primary insomnia F51.01 [place] [id number] [place] [address] 46616- 8960 Feb, [place] [id number] [place] [address] 14378- 2196 Feb, Encounter to establish care Z76.89 ; Status post craniotomy Z98.890 ; Colloid cyst of third ventricle 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.6 ; Hypokalemia E87.6 ; Essential hypertension I10 ; Other hyperlipidemia E78.4 ; Pernicious anemia D51.0 ; Other depression F32.89 and Chronic nausea R11.0 IMMUNIZATIONS No Known Immunizations SOCIAL HISTORY Never Assessed REASON FOR VISIT Controlled Med Refill (08/20) PLAN OF CARE VITAL SIGNS MEDICATIONS Medication Instructions Dosage Frequency Start Date End Date Duration Status Xanax 0.5 MG Orally Three times a day 1 tablet 8h 28 days Active Oxycodone-Acetaminophen 7.5-325 MG Orally 3 times a day 1 tablet as needed 8h 24 Jul, 2017 28 days Active RESULTS No Results [...] Hospitalization History surgery only Hospitalization History . [facility] 02/2017
--- OUTSIDE RECORDS SUMMARY | 2017-12-25 03:13 | XMS REPORT ---
Author Author OSBALDO CORRAL Organization [facility] Address [address] [place] [address] Care Team Providers Care Echo Tech Name Role Phone OSBALDO CORRAL Unavailable PROBLEMS Type Condition ICD9-CM Code [id number] Code Onset Dates Condition Status SNOMED Code Problem Primary insomnia F51.01 Active 6994837 Problem Major depressive disorder, recurrent episode, moderate F33.1 Active 744895004 Problem Anxiety, generalized F41.1 Active 46835899 Problem Vitamin B12 deficiency anemia due to intrinsic factor deficiency D51.0 Active 92763001 Problem Migraine without status migrainosus, not intractable, unspecified migraine type G43.909 Active 13745974 Problem Chronic pain due to trauma G89.21 Active 760834489 Problem Essential hypertension I10 Active 91786145 Problem Adjustment disorder with mixed anxiety and depressed mood F43.23 Active 49819312 Problem Seasonal allergic rhinitis, unspecified allergic rhinitis trigger J30.2 Active 658119101 Problem Empty sella syndrome E23.6 Active 026486648 Problem 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 [id number] [address] Nov, [facility] [address] [facility] [id number] [address] Oct, [facility] [id number] [place] [address] 81690- 4771 Oct, Essential hypertension I10 [facility] [address] 270[address]- [address] Oct, [facility] [id number] [place] [address] 24705- 9257 Oct, [facility] [address] [address]- [address] Oct, Essential hypertension I10 ; Chronic nausea R11.0 ; Hypokalemia E87.6 ; Abnormal thyroid stimulating hormone (TSH) level R79.89 and Recurrent acute suppurative otitis media without spontaneous rupture of left tympanic membrane H66.005 [facility] [id number] [place] [address] 24623- 1255 Oct, [facility] [address] 85[address]- 7503 Oct, Chronic pain due to trauma G89.21 and Anxiety, generalized F41.1 [facility] [address] 008[address]- 2842 Oct, [facility] [facility] [address] 96491- 3679 Sep, Anxiety, generalized F41.1 and Chronic pain due to trauma G89.21 [facility] [address] [id number] [place] [address] 76312- 8824 Sep, [facility] [id number] [place] [address] 00667- 5022 Sep, Otalgia of left ear H92.02 and Low pressure hydrocephalus G91.2 [facility] [id number] [place] [address] 52489- 4587 Sep, [facility] [id number] [place] [address] 24201- 6251 Aug, Essential hypertension I10 ; 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 ; Empty sella syndrome E23.6 ; Pernicious anemia D51.0 ; Anxiety , generalized F41.1 ; Major depressive disorder, recurrent episode, moderate F33.1 ; Primary insomnia F51.01 ; Hypokalemia E87.6 and Chronic pain due to trauma G89.21 [facility] [id number] [place] [address] 44631- 8158 Aug, [facility] [address] 32379- 1191 Aug, Anxiety, generalized F41.1 and Osteoarthritis of spine with radiculopathy, lumbosacral region M47.27 [facility] [facility] [address] 670033- 6201 Aug, [facility] [address] 39606- 4480 Aug, Primary insomnia F51.01 [facility] [address] 08053- 9499 July, Anxiety, generalized F41.1 and Osteoarthritis of spine with radiculopathy, lumbosacral region M47.27 [facility] [address] [address]- 1959 July, Essential hypertension I10 [facility] [id number] [place] [address] 29637- 9719 July, Major depressive disorder, recurrent episode, moderate F33.1 [facility] [id number] [place] [address] 21400- 9927 July, Primary insomnia F51.01 [facility] [address] 69711- 2036 Jun, Anxiety, generalized F41.1 and Osteoarthritis of spine with radiculopathy, lumbosacral region M47.27 [facility] [id number] [place] [address] 66426 -1783 Jun, Acute frontal sinusitis, recurrence not specified J01.10 ; Sinus pressure J34.89 ; Post-nasal drip R09.82 and Sore throat J02.9 [place] [address] [place] [id number]- [address] 05 Jun, 2017 Primary insomnia F51.01 [facility] [address] 73012- 5648 May, Anxiety, generalized F41.1 and Osteoarthritis of spine with radiculopathy, lumbosacral region M47.27 [facility] [id number] [place] [address] 37579- 0065 May, Essential hypertension I10 ; 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 ; Empty sella syndrome E23.6 ; Pernicious anemia D51.0 ; Major depressive disorder, recurrent episode, moderate F33.1 ; Primary insomnia F51.01 ; Other hyperlipidemia E78.4 and Anxiety, generalized F41.1 [facility] [address] 74249- 4582 May, Vitamin B12 deficiency anemia due to intrinsic factor deficiency D51.0 and Pernicious anemia D51.0 [facility] [address] 11178 -3639 May, Migraine without status migrainosus, not intractable, unspecified migraine type G43.909 [facility] [id number] [place] [address] 72846- 9869 May, [facility] [address] 42185- 2894 May, [facility] [id number] [place] [address] 23486- 3036 May, Osteoarthritis of spine with radiculopathy, lumbosacral region M47.27 and Primary insomnia F51.01 [facility] [id number] [place] [address] 85994- 4631 May, Osteoarthritis of spine with radiculopathy, lumbosacral region M47.27 and Anxiety, generalized F41.1 [facility] [address] [id number] [place] [address] 89625- 8605 May, [facility] [address] 98276- 6548 28 Apr, 2017 [facility] [address] [id number] [place] [address] 32556- 0408 Apr, [facility] [address] [address]- 6913 Apr, Anxiety, generalized F41.1 ; Major depressive disorder, recurrent episode, moderate F33.1 ; Moderate episode of recurrent major depressive disorder F33.1 and Adjustment disorder with mixed anxiety and depressed mood F43.23 [facility] [address] [id number] [place] [address] 52689- 4519 13 Apr, 2017 Major depressive disorder, recurrent episode, moderate F33.1 ; Anxiety, generalized F41.1 ; Essential hypertension I10 ; Primary insomnia F51.01 and 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 [place] [id number] [place] [address] 28645- 6946 09 Apr, 2017 Other chest pain R07.89 ; Sinus bradycardia R00.1 ; Essential hypertension I10 and Other hyperlipidemia E78.4 [facility] [address] [place] [id number] [place] [address] 88226- 6352 08 Apr, 2017 Primary insomnia F51.01 [facility] [address] [id number] [place] [address] 41270- 1638 Apr, [facility] [address] [id number] [place] [address] 80144- 2064 Apr, Anxiety, generalized F41.1 [facility] [id number] [place] [address] 09430- 8082 Apr, Osteoarthritis of spine with radiculopathy, lumbosacral region M47.27 [facility] [address] [place] [address]- 8[address] Mar, Intractable migraine without aura and without status migrainosus G43.019 and Dyshidrotic hand dermatitis L30.1 [facility] [address] 57084 -3727 Mar, Skin infection L08.9 [facility] [address] 76700- 8651 Mar, [facility] [address] 80627 -0681 Mar, Skin lesion L98.9 [facility] [facility] [address] 12306- 9577 Mar, Primary insomnia F51.01 and Anxiety, generalized F41.1 [facility] [address] 71759- 8336 Mar, Osteoarthritis of spine with radiculopathy, lumbosacral region M47.27 [facility] [facility] [address] 18774- 8349 Feb, [facility] [address] 29520- 6627 Feb, [facility] [facility] [address] 08723- 8356 Feb, Hypokalemia E87.6 [facility] [address] 65129- 4068 Feb, Intractable migraine without aura and without status migrainosus G43.019 and Other chest pain R07.89 [facility] [address] 14774- 5083 Feb, [address] [address]- 77[address] Feb, Osteoarthritis of spine with radiculopathy, lumbosacral region M47.27 [facility] [id number] [place] [address] 92662- 9254 Feb, Hypokalemia E87.6 [facility] [address] 23934- 6988 Feb, [facility] [address] 17373- 2236 Feb, Primary insomnia F51.01 and Anxiety, generalized F41.1 [facility] [address] 91392 -4801 Feb, Acute suppurative otitis media of both ears without spontaneous rupture of tympanic membranes, recurrence not specified H66.003 [facility] [address] 57649- 2305 Feb, [facility] [address] 62632- 1460 Jan, Osteoarthritis of spine with radiculopathy, lumbosacral region M47.27 [facility] [address] [id number] [place] [address] 62735- 5812 Jan, Primary insomnia F51.01 and Anxiety, generalized F41.1 [facility] [address] 47478- 2647 02 Jan, 2017 Chronic pain due to trauma G89.21 ; Left otitis media with effusion H65.92 and Otalgia of left ear H92.02 [facility] [id number] [place] [address] 73136 -2013 Jan, Bilateral otitis media with effusion H65.93 [facility] [address] [id number] [place] [address] 28419- 0478 Dec, [facility] [address] 20907- 5389 Dec, Primary insomnia F51.01 and Anxiety, generalized F41.1 [facility] [facility] [address] 39118- 2944 25 Nov, 2016 [facility] [id number] [place] [address] 23260- 3626 15 Nov, 2016 [facility] [address] 84789- 5988 13 Nov, 2016 Anxiety, generalized F41.1 [facility] [address] 66577- 3955 12 Nov, 2016 Pernicious anemia D51.0 [facility] [address] [place] [id number] [place] [address] 47968- 6849 Nov, Primary insomnia F51.01 [facility] [address] 74042- 7955 Nov, Encounter for well woman exam with routine gynecological exam Z01.419 ; Screening breast examination Z12.31 and Otalgia of left ear H92.02 [place] [address] 20435- 5612 Oct, [facility] [id number] [place] [address] 71738 -2151 14 Oct, 2016 Insect bite (nonvenomous) of right upper arm, initial encounter S40.861A [facility] [address] [place] [id number] [place] [address] 18047- 3895 Oct, Pernicious anemia D51.0 [facility] [address] [place] [id number] [place] [address] 80918- 7112 07 Oct, 2016 Anxiety, generalized F41.1 and Pernicious anemia D51.0 [facility] [address] [place] [id number] [place] [address] 17100- 1971 Oct, Encounter to establish care with new doctor Z76.89 ; Moderate episode of recurrent major depressive disorder F33.1 ; Empty sella syndrome E23.6 ; Seasonal allergic rhinitis, unspecified allergic rhinitis trigger J30.2 ; Essential hypertension I10 and Osteoarthritis of spine with radiculopathy, lumbosacral region M47.27 [facility] [address] [id number] [place] [address] 41916- 3664 28 Aug, 2016 [facility] [address] [place] [id number] [place] [address] 31853- 8162 Aug, [facility] [address] [place] [id number] [place] [address] 56530- 8929 13 Aug, 2016 Anxiety, generalized F41.1 [facility] [address] 73500- 8612 08 Aug, 2016 [facility] [place] [address] [place] [id number] [place] [address] 16670- 6816 Aug, Primary insomnia F51.01 ; Essential hypertension I10 ; Empty sella syndrome E23.6 and Chronic pain due to trauma G89.21 [facility] [place] [address] [place] [id number] [place] [address] 64453- 2761 July, Primary insomnia F51.01 [facility] [id number] [place] [address] 44783 -0590 July, Seasonal allergic rhinitis, unspecified allergic rhinitis trigger J30.2 and Acute suppurative otitis media of right ear without spontaneous rupture of tympanic membrane, recurrence not specified H66.001 [facility] [address] [id number] [place] [address] 57360 -8996 July, Acute suppurative otitis media of left ear without spontaneous rupture of tympanic membrane, recurrence not specified H66.002 [facility] [address] [place] [id number] [place] [address] 52726- 4852 July, [facility] [address] [place] [id number] [place] [address] 48402- 2402 July, Anxiety, generalized F41.1 [facility] [address] [place] [id number] [place] [address] 70528- 9248 Jun, [facility] [place] [address] [place] [id number] [place] [address] 12208- 3425 Jun, Primary insomnia F51.01 [facility] [id number] [place] [address] 02596- 1185 Jun, Empty sella syndrome E23.6 ; Primary insomnia F51.01 and Hypokalemia E87.6 [facility] [id number] [place] [address] 47873- 2695 17 Jun, 2016 [facility] [id number] [place] [address] 73344- 8690 Jun, [facility] [id number] [place] [address] 67041- 9176 Jun, Empty sella syndrome E23.6 [facility] [id number] [place] [address] 56885- 8066 Jun, Anxiety, generalized F41.1 [facility] [id number] [place] [address] 33136- 8989 Jun, [facility] [id number] [place] [address] 69755- 8541 Jun, Empty sella syndrome E23.6 [facility] [id number] [place] [address] 22704- 4974 May, [facility] [id number] [place] [address] 79998- 6385 May, [facility] [id number] [place] [address] 25748- 3768 30 May, 2016 Empty sella syndrome E23.6 [facility] [id number] [place] [address] 79438- 9270 May, [facility] [id number] [place] [address] 78560- 0773 May, [facility] [id number] [place] [address] 28712- 2689 May, Primary insomnia F51.01 [facility] [id number] [place] [address] 41582- 8442 May, [facility] [id number] [place] [address] 66337- 8446 May, Nausea R11.0 ; Other headache syndrome G44.89 and Malignant hypertension I10 [facility] [id number] [place] [address] 49316- 1696 07 May, 2016 Anxiety, generalized F41.1 [facility] [address] 90932- 4692 28 Apr, 2016 Major depressive disorder, recurrent episode, moderate F33.1 [place] [address] 279582- 6761 28 Apr, 2016 Moderate episode of recurrent major depressive disorder F33.1 [facility] [address] [place] [id number] [place] [address] 26013- 1207 27 Apr, 2016 Other chronic postprocedural pain G89.28 [facility] [address] [place] [id number] [place] [address] 22961- 3369 15 Apr, 2016 Major depressive disorder, recurrent episode, moderate F33.1 [facility] [address] [id number] [place] [address] 64836- 4354 07 Apr, 2016 Anxiety, generalized F41.1 [facility] [address] [place] [id number] [place] [address] 97700- 5761 03 Apr, 2016 [facility] [id number] [place] [address] 59272- 1151 Mar, Other chronic postprocedural pain G89.28 ; Status post craniotomy Z98.890 ; Encounter for drug screening Z02.83 and Hematuria R31.9 [facility] [address] [place] [id number] [place] [address] 47509- 340 Mar, Major depressive disorder, recurrent episode, moderate F33.1 [facility] [place] [address] [place] [id number] [place] [address] 53939- 2380 Mar, [place] [address] [address] 2823 Mar, Anxiety, generalized F41.1 [place] [id number] [place] [address] 12098- 9697 Mar, Anxiety, generalized F41.1 and Pernicious anemia D51.0 [place] [id number] [place] [address] 59393- 2885 Mar, Colloid cyst of third ventricle 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 and Status post craniotomy Z98.890 [place] [id number] [place] [address] 26050- 7001 Mar, Primary insomnia F51.01 [place] [id number] [place] [address] 39267- 6154 Feb, [place] [id number] [place] [address] 20041- 7691 Feb, Encounter to establish care Z76.89 ; Status post craniotomy Z98.890 ; 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 ; Hypokalemia E87.6 ; Essential hypertension I10 ; Other hyperlipidemia E78.4 ; Pernicious anemia D51.0 ; Other depression F32.89 and Chronic nausea R11.0 IMMUNIZATIONS No Known Immunizations SOCIAL HISTORY Never Assessed REASON FOR VISIT Updated [facility] PLAN OF CARE VITAL SIGNS MEDICATIONS Unknown Medications RESULTS No Results PROCEDURES No Known procedures INSTRUCTIONS MEDICATIONS ADMINISTERED No Known Medications MEDICAL (GENERAL) HISTORY Type Description Date Medical History HTN Medical History Hypokalemia since cranioplasty in may 2015 Medical History Insomnia longstanding Ambien works at [employer] Medical History Hypercholesterolemia Medical History prenicious anemia [...] 09/14/17 Hospitalization History surgery only Hospitalization History [facility] 02/2017
[2017-12-25 03:14] VITALS: BP 193/88
--- OUTSIDE RECORDS SUMMARY | 2017-12-25 03:14 | XMS REPORT ---
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 Name Role Phone OSBALDO CORRAL Unavailable PROBLEMS Type Condition ICD9-CM Code OFB89-TO Code Onset Dates Condition Status SNOMED Code Problem Primary insomnia F51.01 Active 0210119 Problem Major depressive disorder, recurrent episode, moderate F33.1 Active 429875020 Problem Anxiety, generalized F41.1 Active 98509675 Problem Vitamin B12 deficiency anemia due to intrinsic factor deficiency D51.0 Active 64061809 Problem Migraine without status migrainosus, not intractable, unspecified migraine type G43.909 Active 71530216 Problem Essential hypertension I10 Active 46261307 Problem Chronic pain due to trauma G89.21 Active 728806677 Problem Adjustment disorder with mixed anxiety and depressed mood F43.23 Active 47057121 Problem Seasonal allergic rhinitis, unspecified allergic rhinitis trigger J30.2 Active 701457431 Problem Empty sella syndrome E23.6 Active 969300208 Problem 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 Active 55859449 Problem Pernicious anemia D51.0 Active 96534424 Problem Hypokalemia E87.6 Active 82119183 Problem Other hyperlipidemia E78.4 Active 54236924 ALLERGIES No Information ENCOUNTERS Encounter Location Date Diagnosis [facility] [id number] [address] Nov, [facility] [id number] [address] Oct, [facility] [address], [place] [address] Oct, [facility] [id number] [address] Sep, Anxiety, generalized F41.1 and Chronic pain due to trauma G89.21 [facility] [id number] [place] [address]13- 3994 Sep, [facility] [id number] [place] [address] 95747- 8831 Sep, Otalgia of left ear H92.02 and Low pressure hydrocephalus G91.2 [facility] [id number] [place] [address] 78364- 2895 Sep, [facility] [place] [id number] [place] [address] 16355- 7928 Aug, Essential hypertension I10 ; 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 ; Empty sella syndrome E23.6 ; Pernicious anemia D51.0 ; Anxiety , generalized F41.1 ; Major depressive disorder, recurrent episode, moderate F33.1 ; Primary insomnia F51.01 ; Hypokalemia E87.6 and Chronic pain due to trauma G89.21 [facility] [place] [id number] [place] [address] 90200- 9135 Aug, [facility] [id number] [place] [address] 46700- 5151 Aug, Anxiety, generalized F41.1 and Osteoarthritis of spine with radiculopathy, lumbosacral region M47.27 [facility] [id number] [address] Aug, [facility] [place] [id number] [place] [address] 16515- 3435 Aug, Primary insomnia F51.01 [facility] [id number] [place] [address] 35027- 4420 July, Anxiety, generalized F41.1 and Osteoarthritis of spine with radiculopathy, lumbosacral region M47.27 [facility] [id number] [place] [address] 55703- 4187 July, Essential hypertension I10 [facility] [address] [place] [address] July, Major depressive disorder, recurrent episode, moderate F33.1 [address] [address] 9[address]64- 3843 July, Primary insomnia F51.01 [address] 29477- 9281 Jun, Anxiety, generalized F41.1 and Osteoarthritis of spine with radiculopathy, lumbosacral region M47.27 [facility] [id number] [place] [address]28 -8648 Jun, Acute frontal sinusitis, recurrence not specified J01.10 ; Sinus pressure J34.89 ; Post-nasal drip R09.82 and Sore throat J02.9 [address] 6[address]- 2834 Jun, Primary insomnia F51.01 [address] [address] 32175- 8032 May, Anxiety, generalized F41.1 and Osteoarthritis of spine with radiculopathy, lumbosacral region M47.27 [facility] [id number] [place] [address] 63473- 7376 May, Essential hypertension I10 ; 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 ; Empty sella syndrome E23.6 ; Pernicious anemia D51.0 ; Major depressive disorder, recurrent episode, moderate F33.1 ; Primary insomnia F51.01 ; Other hyperlipidemia E78.4 and Anxiety, generalized F41.1 [facility] [place] [id number] [place] [address] 22182- 6856 May, Vitamin B12 deficiency anemia due to intrinsic factor deficiency D51.0 and Pernicious anemia D51.0 [facility] [id number] [place] [address] 94493 -5531 May, Migraine without status migrainosus, not intractable, unspecified migraine type G43.909 [facility] [id number] [place] [address] 62041- 2409 May, [address] [address] 00860- 9090 May, [place] [place] [id number] [place] [address] 83918- 0977 May, Osteoarthritis of spine with radiculopathy, lumbosacral region M47.27 and Primary insomnia F51.01 [place] [place] [id number] [place] [address] 48052- 7957 May, Osteoarthritis of spine with radiculopathy, lumbosacral region M47.27 and Anxiety, generalized F41.1 [id number] [place] [address] 33978- 7733 May, [facility] [place] [id number] [place] [address] 38899- 0760 Apr, [facility] [place] [id number] [place] [address] 07164- 2634 19 Apr, 2017 [id number] [place] [address] 34293- 5080 13 Apr, 2017 Anxiety, generalized F41.1 ; Major depressive disorder, recurrent episode, moderate F33.1 ; Moderate episode of recurrent major depressive disorder F33.1 and Adjustment disorder with mixed anxiety and depressed mood F43.23 [id number] [place] [address] 56259- 4664 Apr, Major depressive disorder, recurrent episode, moderate F33.1 ; Anxiety, generalized F41.1 ; Essential hypertension I10 ; Primary insomnia F51.01 and 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 [id number] [place] [address] 57450- 7515 09 Apr, 2017 Other chest pain R07.89 ; Sinus bradycardia R00.1 ; Essential hypertension I10 and Other hyperlipidemia E78.4 [id number] [place] [address] 70736- 1890 08 Apr, 2017 Primary insomnia F51.01 [address] [address] 50939- 0153 Apr, [address] [address] 41776- 4959 Apr, Anxiety, generalized F41.1 [address] [address] 09784- 9677 Apr, Osteoarthritis of spine with radiculopathy, lumbosacral region M47.27 [address] [address] 05615- 2601 Mar, Intractable migraine without aura and without status migrainosus G43.019 and Dyshidrotic hand dermatitis L30.1 [facility] [address] [address]92 Mar, Skin infection L08.9 [address] [place] 67452- 9797 Mar, [facility] [address] 94665 -1511 Mar, Skin lesion L98.9 [place] [id number] [place] [address] 39027- 5572 Mar, Primary insomnia F51.01 and Anxiety, generalized F41.1 [place] [id number] [place] [address] 18086- 4208 Mar, Osteoarthritis of spine with radiculopathy, lumbosacral region M47.27 [place] [address] 05524- 5877 Feb, [place] [address] 46149- 0966 Feb, [address] [address] 24137- 6535 Feb, Hypokalemia E87.6 [facility] [address] 41830- 9141 Feb, Intractable migraine without aura and without status migrainosus G43.019 and Other chest pain R07.89 [facility] [address] 04247- 2333 Feb, [facility] [address] 86888- 6639 Feb, Osteoarthritis of spine with radiculopathy, lumbosacral region M47.27 [address] [address] 00675- 4953 Feb, Hypokalemia E87.6 [address] 48005- 5826 Feb, [address] 58482- 1787 Feb, Primary insomnia F51.01 and Anxiety, generalized F41.1 [facility] [address] [address] -25[address] Feb, Acute suppurative otitis media of both ears without spontaneous rupture of tympanic membranes, recurrence not specified H66.003 [facility] [id number] [place] [address] 72683- 6061 Feb, [facility] [address] 34325- 3881 Jan, Osteoarthritis of spine with radiculopathy, lumbosacral region M47.27 [address] [address] 65711- 1358 Jan, Primary insomnia F51.01 and Anxiety, generalized F41.1 [facility] [id number] [place] [address] 94947- 0641 Jan, Chronic pain due to trauma G89.21 ; Left otitis media with effusion H65.92 and Otalgia of left ear H92.02 [facility] [address] 68658 -8210 Jan, Bilateral otitis media with effusion H65.93 [address] 99511- 8891 Dec, [place] [address] 10257- 9704 Dec, Primary insomnia F51.01 and Anxiety, generalized F41.1 [address] [address] 27139- 0424 Nov, [address] [address] 36958- 0786 Nov, [address] 57947- 9782 Nov, Anxiety, generalized F41.1 [address] 83513- 6506 Nov, Pernicious anemia D51.0 [address] 60301- 8167 Nov, Primary insomnia F51.01 [address] [address] 63746- 1160 Nov, Encounter for well woman exam with routine gynecological exam Z01.419 ; Screening breast examination Z12.31 and Otalgia of left ear H92.02 [address] 41096- 6582 Oct, [facility] [address] 81245 -7351 Oct, Insect bite (nonvenomous) of right upper arm, initial encounter S40.861A [address] [place] 72158- 5590 Oct, Pernicious anemia D51.0 [place] [id number] [place] [address] 58341- 9765 Oct, Anxiety, generalized F41.1 and Pernicious anemia D51.0 [place] [id number] [place] [address] 61980- 4461 Oct, Encounter to establish care with new doctor Z76.89 ; Moderate episode of recurrent major depressive disorder F33.1 ; Empty sella syndrome E23.6 ; Seasonal allergic rhinitis, unspecified allergic rhinitis trigger J30.2 ; Essential hypertension I10 and Osteoarthritis of spine with radiculopathy, lumbosacral region M47.27 [address] [address] 30752- 0667 Aug, [place] [address] 57612- 6050 Aug, [address] [address] 74669- 5182 13 Aug, 2016 Anxiety, generalized F41.1 [address] 10223- 4955 08 Aug, 2016 [address] [address] 41206- 5332 07 Aug, 2016 Primary insomnia F51.01 ; Essential hypertension I10 ; Empty sella syndrome E23.6 and Chronic pain due to trauma G89.21 [address] [id number] [place] [address] 47462- 0820 July, Primary insomnia F51.01 [facility] [address] 97851 -4762 July, Seasonal allergic rhinitis, unspecified allergic rhinitis trigger J30.2 and Acute suppurative otitis media of right ear without spontaneous rupture of tympanic membrane, recurrence not specified H66.001 [facility] [address] 47809 -1699 July, Acute suppurative otitis media of left ear without spontaneous rupture of tympanic membrane, recurrence not specified H66.002 [facility] [address] 26765- 1209 July, [facility] [address] 65899- 2852 July, Anxiety, generalized F41.1 [facility] [address] 51440- 5560 Jun, [facility] [address] 64978- 1582 Jun, Primary insomnia F51.01 [facility] [address] 86502- 0415 Jun, Empty sella syndrome E23.6 ; Primary insomnia F51.01 and Hypokalemia E87.6 [facility] [address] 01877- 2944 Jun, [facility] [address] 59570- 4334 Jun, [facility] [address] 13759- 6937 Jun, Empty sella syndrome E23.6 [facility] [id number] [place] [address] 30930- 5915 Jun, Anxiety, generalized F41.1 [facility] [id number] [place] [address] 13580- 4835 Jun, [facility] [address] 41546- 5226 Jun, Empty sella syndrome E23.6 [facility] [address] 95160- 9162 May, [facility] [address] 72698- 3304 31 May, 2016 [facility] [id number] [place] [address] 81703- 5210 30 May, 2016 Empty sella syndrome E23.6 [facility] [id number] [place] [address] 12903- 7837 24 May, 2016 [facility] [id number] [place] [address] 46841- 2458 May, [facility] [id number] [place] [address] 22744- 6482 May, Primary insomnia F51.01 [address] 06773- 4783 May, [place] [id number] [place] [address] 73407- 1901 May, Nausea R11.0 ; Other headache syndrome G44.89 and Malignant hypertension I10 [place] [id number] [place] [address] 12916- 9484 07 May, 2016 Anxiety, generalized F41.1 [place] [id number] [place] [address] 71436- 7416 28 Apr, 2016 Major depressive disorder, recurrent episode, moderate F33.1 [place] [id number] [place] [address] 86463- 3932 28 Apr, 2016 Moderate episode of recurrent major depressive disorder F33.1 [place] [id number] [place] [address] 27180- 4457 27 Apr, 2016 Other chronic postprocedural pain G89.28 [facility] [id number] [place] [address] 01279- 4803 15 Apr, 2016 Major depressive disorder, recurrent episode, moderate F33.1 [facility] [id number] [place] [address] 33821- 9423 07 Apr, 2016 Anxiety, generalized F41.1 [facility] [id number] [place] [address] 34378- 3551 Apr, [address] 31275- 6887 Mar, Other chronic postprocedural pain G89.28 ; Status post craniotomy Z98.890 ; Encounter for drug screening Z02.83 and Hematuria R31.[address] 13382- 6783 Mar, Major depressive disorder, recurrent episode, moderate F33.1 [address] [place] 29584- 9688 Mar, [address] [address] 75866- 0498 Mar, Anxiety, generalized F41.1 [id number] [place] [address] 10162- 5580 Mar, Anxiety, generalized F41.1 and Pernicious anemia D51.0 [place] [id number] [place] [address] 13639- 5747 Mar, 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 and Status post craniotomy Z98.890 [place] [id number] [place] [address] 69665- 4725 Mar, Primary insomnia F51.01 [place] [id number] [place] [address] 54517- 2039 Feb, [place] [id number] [place] [address] 34711- 9765 Feb, Encounter to establish care Z76.89 ; Status post craniotomy Z98.890 ; 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
--- OUTSIDE RECORDS SUMMARY | 2017-12-25 03:14 | XMS REPORT ---
Author Author OSBALDO CORRAL Organization [facility] Address [address] [place] [address] Care Team Providers Care Rn Informatics Name Role Phone OSBALDO CORRAL Unavailable PROBLEMS Type Condition ICD9-CM Code LHW92-SF Code Onset Dates Condition Status SNOMED Code Problem Primary insomnia F51.01 Active 7561791 Problem Major depressive disorder, recurrent episode, moderate F33.1 Active 499360497 Problem Anxiety, generalized F41.1 Active 85825916 Problem Vitamin B12 deficiency anemia due to intrinsic factor deficiency D51.0 Active 79223878 Problem Migraine without status migrainosus, not intractable, unspecified migraine type G43.909 Active 35794586 Problem Essential hypertension I10 Active 82983557 Problem Chronic pain due to trauma G89.21 Active 862113776 Problem Adjustment disorder with mixed anxiety and depressed mood F43.23 Active 49304009 Problem Seasonal allergic rhinitis, unspecified allergic rhinitis trigger J30.2 Active 842242396 Problem Empty sella syndrome E23.6 Active 321238520 Problem 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 Active 56988960 Problem Pernicious anemia D51.0 Active 10230875 Problem Hypokalemia E87.6 Active 82083134 Problem Other hyperlipidemia E78.4 Active 58498533 ALLERGIES No Information ENCOUNTERS Encounter Location Date Diagnosis [facility] [id number] [address] Nov, [facility] [id number], [place] [address] Oct, [facility] [address], [place] [address] Oct, [facility] [id number], [place] [address] Sep, Anxiety, generalized F41.1 and Chronic pain due to trauma G89.21 [place] [id number] [place] [address]84- 1984 Sep, [place] [id number] [place] [address] 46234- 5346 Sep, Otalgia of left ear H92.02 and Low pressure hydrocephalus G91.2 [place] [id number] [place] [address] 19939- 7208 Sep, [place] [id number] [place] [address] 77269- 8410 Aug, Essential hypertension I10 ; 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 ; Empty sella syndrome E23.6 ; Pernicious anemia D51.0 ; Anxiety , generalized F41.1 ; Major depressive disorder, recurrent episode, moderate F33.1 ; Primary insomnia F51.01 ; Hypokalemia E87.6 and Chronic pain due to trauma G89.21 [place] [id number] [place] [address] 32690- 1144 Aug, [place] [id number] [place] [address] 27579- 5021 Aug, Anxiety, generalized F41.1 and Osteoarthritis of spine with radiculopathy, lumbosacral region M47.27 [place] [id number] [address] Aug, [place] [id number] [place] [address] 78924- 4539 Aug, Primary insomnia F51.01 [place] [id number] [place] [address] 67762- 4946 July, Anxiety, generalized F41.1 and Osteoarthritis of spine with radiculopathy, lumbosacral region M47.27 [place] [id number] [place] [address] 57423- 9242 July, Essential hypertension I10 [address] [place] [address] July, Major depressive disorder, recurrent episode, moderate F33.1 [place] [address] 25562- 2581 July, Primary insomnia F51.01 [place] [address] 86783- 0050 Jun, Anxiety, generalized F41.1 and Osteoarthritis of spine with radiculopathy, lumbosacral region M47.27 [facility] [id number] [place] [address] 72650 -1637 Jun, Acute frontal sinusitis, recurrence not specified J01.10 ; Sinus pressure J34.89 ; Post-nasal drip R09.82 and Sore throat J02.9 [place] [address] 87805- 6612 Jun, Primary insomnia F51.01 [place] [address] 45567- 8116 May, Anxiety, generalized F41.1 and Osteoarthritis of spine with radiculopathy, lumbosacral region M47.27 [place] [id number] [place] [address] 98830- 6646 May, Essential hypertension I10 ; Colloid cyst of third ventricle 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.6 ; Empty sella syndrome E23.6 ; Pernicious anemia D51.0 ; Major depressive disorder, recurrent episode, moderate F33.1 ; Primary insomnia F51.01 ; Other hyperlipidemia E78.4 and Anxiety, generalized F41.1 [place] [id number] [place] [address] 14521- 2216 May, Vitamin B12 deficiency anemia due to intrinsic factor deficiency D51.0 and Pernicious anemia D51.0 [facility] [id number] [place] [address] 07413 -0369 May, Migraine without status migrainosus, not intractable, unspecified migraine type G43.909 [place] [id number] [place] [address] 80076- 0290 May, [place] [address] 35420- 9657 May, [place] [id number] [place] [address] 13457- 9357 May, Osteoarthritis of spine with radiculopathy, lumbosacral region M47.27 and Primary insomnia F51.01 [place] [id number] [place] [address] 19244- 8490 May, Osteoarthritis of spine with radiculopathy, lumbosacral region M47.27 and Anxiety, generalized F41.1 [id number] [place] [address] 32687- 9288 May, [place] [id number] [place] [address] 21083- 0575 Apr, [place] [id number] [place] [address] 99179- 8927 19 Apr, 2017 [id number] [place] [address] 73233- 6894 13 Apr, 2017 Anxiety, generalized F41.1 ; Major depressive disorder, recurrent episode, moderate F33.1 ; Moderate episode of recurrent major depressive disorder F33.1 and Adjustment disorder with mixed anxiety and depressed mood F43.23 [id number] [place] [address] 46678- 5256 Apr, Major depressive disorder, recurrent episode, moderate F33.1 ; Anxiety, generalized F41.1 ; Essential hypertension I10 ; Primary insomnia F51.01 and Colloid cyst of third ventricle Q04.6 [id number] [place] [address] 24722- 2557 09 Apr, 2017 Other chest pain R07.89 ; Sinus bradycardia R00.1 ; Essential hypertension I10 and Other hyperlipidemia E78.4 [id number] [place] [address] 27341- 9886 08 Apr, 2017 Primary insomnia F51.01 [address] [place] [address] 64861- 2312 Apr, [place] [address] 16753- 3236 Apr, Anxiety, generalized F41.1 [place] [address] 85400- 7224 Apr, Osteoarthritis of spine with radiculopathy, lumbosacral region M47.27 [place] [address] 92375- 8115 Mar, Intractable migraine without aura and without status migrainosus G43.019 and Dyshidrotic hand dermatitis L30.1 [facility] [address] [address]2082 Mar, Skin infection L08.9 [place] [address] 02406- 6653 Mar, [facility] [address] 31373 -2160 Mar, Skin lesion L98.9 [place] [id number] [place] [address] 51895- 3091 Mar, Primary insomnia F51.01 and Anxiety, generalized F41.1 [place] [id number] [place] [address] 67586- 5589 Mar, Osteoarthritis of spine with radiculopathy, lumbosacral region M47.27 [place] [address] 86708- 4771 Feb, [place] [address] 28752- 1536 Feb, [place] [address] 03337- 7128 Feb, Hypokalemia E87.6 [facility] [address] 55847- 0837 Feb, Intractable migraine without aura and without status migrainosus G43.019 and Other chest pain R07.89 [facility] [address] 25715- 5560 Feb, [facility] [address] 70227- 1257 Feb, Osteoarthritis of spine with radiculopathy, lumbosacral region M47.27 [place] [address] 55789- 8320 Feb, Hypokalemia E87.6 [address] [address] 19728- 9432 Feb, [place] [address] 39240- 6917 Feb, Primary insomnia F51.01 and Anxiety, generalized F41.1 [facility] IN [facility] [address] [address]00 [address] Feb, Acute suppurative otitis media of both ears without spontaneous rupture of tympanic membranes, recurrence not specified H66.003 [facility] [id number] [place] [address] 95679- 4749 Feb, [facility] [address] 93377- 8086 Jan, Osteoarthritis of spine with radiculopathy, lumbosacral region M47.27 [place] [address] 56766- 4566 Jan, Primary insomnia F51.01 and Anxiety, generalized F41.1 [facility] [id number] [place] [address] 12035- 4188 Jan, Chronic pain due to trauma G89.21 ; Left otitis media with effusion H65.92 and Otalgia of left ear H92.02 [facility] [address] [address] Jan, Bilateral otitis media with effusion H65.93 [place] [address] 85812- 4876 Dec, [place] [address] 92340- 0772 Dec, Primary insomnia F51.01 and Anxiety, generalized F41.1 [place] [address] 18636- 6296 Nov, [place] [address] 74427- 9954 Nov, [place] [address] 56707- 3223 Nov, Anxiety, generalized F41.1 [place] [address] 24717- 4500 Nov, Pernicious anemia D51.0 [place] [address] 44838- 8866 Nov, Primary insomnia F51.01 [place] [address] 40792- 5453 Nov, Encounter for well woman exam with routine gynecological exam Z01.419 ; Screening breast examination Z12.31 and Otalgia of left ear H92.02 [place] [address] 87669- 7666 Oct, [facility] [address] 82662 -6002 Oct, Insect bite (nonvenomous) of right upper arm, initial encounter S40.861A [place] [address] 88578- 4719 Oct, Pernicious anemia D51.0 [place] [id number] [place] [address] 15416- 8860 Oct, Anxiety, generalized F41.1 and Pernicious anemia D51.0 [place] [id number] [place] [address] 48880- 1453 Oct, Encounter to establish care with new doctor Z76.89 ; Moderate episode of recurrent major depressive disorder F33.1 ; Empty sella syndrome E23.6 ; Seasonal allergic rhinitis, unspecified allergic rhinitis trigger J30.2 ; Essential hypertension I10 and Osteoarthritis of spine with radiculopathy, lumbosacral region M47.27 [place] [address] 69376- 1607 Aug, [place] [address] 11195- 2759 Aug, [place] [address] 95182- 2062 13 Aug, 2016 Anxiety, generalized F41.1 [place] [address] 90556- 6822 08 Aug, 2016 [place] [address] 27656- 9533 07 Aug, 2016 Primary insomnia F51.01 ; Essential hypertension I10 ; Empty sella syndrome E23.6 and Chronic pain due to trauma G89.21 [place] [id number] [place] [address] 50375- 3971 July, Primary insomnia F51.01 [facility] [address] 32436 [address]15 July, Seasonal allergic rhinitis, unspecified allergic rhinitis trigger J30.2 and Acute suppurative otitis media of right ear without spontaneous rupture of tympanic membrane, recurrence not specified H66.001 [facility] [address] 55236 -5914 July, Acute suppurative otitis media of left ear without spontaneous rupture of tympanic membrane, recurrence not specified H66.002 [facility] [address] 19381- [address] July, [facility] [address] 28824- 2976 July, Anxiety, generalized F41.1 [facility] [address] 93771- 4517 Jun, [facility] [address] 67664- 3825 Jun, Primary insomnia F51.01 [facility] [address] 03530- 7243 Jun, Empty sella syndrome E23.6 ; Primary insomnia F51.01 and Hypokalemia E87.6 [facility] [address] 97578- 8598 Jun, [facility] [address] 56791- 4900 Jun, [facility] [address] 59137- 5402 Jun, Empty sella syndrome E23.6 [facility] [id number] [place] [address] 90258- 1990 Jun, Anxiety, generalized F41.1 [facility] [id number] [place] [address] 48779- 3865 Jun, [facility] [address] 03205- 7630 Jun, Empty sella syndrome E23.6 [facility] [address] 69469- 5713 May, [facility] [address] 68961- 8702 31 May, 2016 [facility] [id number] [place] [address] 22017- 1714 30 May, 2016 Empty sella syndrome E23.6 [facility] [id number] [place] [address] 95009- 6689 24 May, 2016 [facility] [id number] [place] [address] 70114- 3118 May, [facility] [id number] [place] [address] 95297- 5586 May, Primary insomnia F51.01 [place] [address] 48321- 4315 May, [place] [id number] [place] [address] 08132- 7703 May, Nausea R11.0 ; Other headache syndrome G44.89 and Malignant hypertension I10 [place] [id number] [place] [address] 77405- 0980 07 May, 2016 Anxiety, generalized F41.1 [place] [id number] [place] [address] 19461- 0759 28 Apr, 2016 Major depressive disorder, recurrent episode, moderate F33.1 [place] [id number] [place] [address] 47406- 1121 28 Apr, 2016 Moderate episode of recurrent major depressive disorder F33.1 [place] [id number] [place] [address] 37485- 8097 27 Apr, 2016 Other chronic postprocedural pain G89.28 [facility] [id number] [place] [address] 25051- 8357 15 Apr, 2016 Major depressive disorder, recurrent episode, moderate F33.1 [facility] [id number] [place] [address] 95786- 4601 07 Apr, 2016 Anxiety, generalized F41.1 [facility] [id number] [place] [address] 14037- 1477 Apr, [place] [address] 69932- 3454 Mar, Other chronic postprocedural pain G89.28 ; Status post craniotomy Z98.890 ; Encounter for drug screening Z02.83 and Hematuria R31.[address] 16613- 1156 Mar, Major depressive disorder, recurrent episode, moderate F33.1 [place] [address] 49872- 4674 Mar, [place] [address] 17538- 5658 Mar, Anxiety, generalized F41.1 [id number] [place] [address] 74232- 5438 Mar, Anxiety, generalized F41.1 and Pernicious anemia D51.0 [place] [id number] [place] [address] 15149- 9635 Mar, 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
[2017-12-25 03:16] LABS: BASOPHILS # (AUTO) 0.1 10^3/uL (0.0-0.1); BASOPHILS % (AUTO) 1 % (0-10); EOSINOPHILS # (AUTO) 0.3 10^3/uL (0.0-0.3); EOSINOPHILS % (AUTO) 4 % (0-10); HEMATOCRIT 38 % (35-52); HEMOGLOBIN 13.6 G/DL (11.5-16.0); LYMPHOCYTES # (AUTO) 2.5 X 10^3 (1.0-4.0); LYMPHOCYTES % (AUTO) 38 % (12-44); MEAN CORPUSCULAR HEMOGLOBIN 33 PG (25-34); MEAN CORPUSCULAR HGB CONC 36 G/DL (32-36); MEAN CORPUSCULAR VOLUME 92 FL (80-99); MEAN PLATELET VOLUME 9.7 FL (7.4-10.4); MONOCYTES # (AUTO) 0.6 X 10^3 (0.0-1.0); MONOCYTES % (AUTO) 9 % (0-12); NEUTROPHILS # (AUTO) 3.2 X 10^3 (1.8-7.8); NEUTROPHILS % (AUTO) 49 % (42-75); PLATELET COUNT 255 10^3/uL (130-400); RED BLOOD COUNT 4.09 10^6/uL (4.35-5.85); RED CELL DISTRIBUTION WIDTH 13.1 % (10.0-14.5); WHITE BLOOD COUNT 6.6 10^3/uL (4.3-11.0)
[2017-12-25] MEDS: NITROGLYCERIN 0.4 MG SL TABS BTL 25'S SL PRN ×2 (03:30→03:51)
--- NOTE | 2017-12-25 03:30 | ED Chest Pain ---
General Stated Complaint: CP, LEFT ARM PAIN,NO APPETITE, FLORES,DIZZY Source: patient History of Present Illness Date Seen by Provider: Dec 25, 2017 Time Seen by Provider: 03:02 Initial Comments PT ARRIVES VIA POV FROM HOME MULTIPLE COMPLAINTS C/O "HIGH BLOOD PRESSURE" FOR A COUPLE OF DAYS C/O CHEST PAIN BELOW LEFT BREAST C/O LEFT ARM PAIN C/O NAUSEA, NO VOMITING C/O DIZZINESS C/O SEVERE HEADACHE--CHRONIC/CONSTANT FOR YEARS AND IS THIS BAD ALL THE TIME ALL OTHER SYMPTOMS ONGOING FOR A COUPLE OF DAYS RATES ALL SYMPTOMS "01/06" PT HAS BEEN PRESCRIBED: RAEGAN--HAS NOT TAKEN ANY TEMAZEPAM--HAS NOT TAKEN ANY DULOXETINE--HAS NOT TAKEN ANY XANAX--HAS NOT TAKEN ANY OXYCODONE--TID--TOOK 1 YESTERDAY MORNING TIZANIDINE--TID--TOOK 1 YESTERDAY MORNING HAS ALSO BEEN PRESCRIBED: LISINOPRIL 40 MG 1/2 BID--NOT TAKEN METOPROLOL 25 MG 1/2 BID--NOT TAKEN CHLORTHALIDONE 25 MG 1/2 DAILY--NOT TAKEN AMLODIPINE 5 MG DAILY--NOT TAKEN KCL--NOT TAKEN PRAVASTATIN--TOOK YESTERDAY PT STATES SHE TAKES THEM " NEEDED" FOR HTN, BUT HAS NOT TAKEN ANY IN A COUPLE OF DAYS, AND APPARENTLY RARELY TAKES THEM HAS HAD THESE SYMPTOMS BEFORE, AND HAS HAD A STRESS TEST IN THE PAST BUT NOT A CARDIAC CATH ALSO C/O CHRONIC / CONSTANT DAILY HEADACHES--WORST AT THE BASE/ BACK OF HER SKULL PT HAS HAD A CRANIOTOMY IN 04/2014 FOR COLLOID CYST OF 3RD VENTRICLE, THEN HAD CRANIOPLASTY ON SKULL 2016 AND HARDWARE REMOVAL HAS AN APPOINTMENT NEXT WEEK WITH NEUROSURGERY REGARDING ANOTHER CRANIOPLASTY ON SKULL NO KNOW RETURN OF COLLOID CYST--HAD STABLE/UNCHANGED CT OF HEAD ON 11/05/17 -- CHRONIC/POST-OP CHANGES PT HAS HAD MULTIPLE VISITS FOR THESE SAME COMPLAINTS IN THE PAST PCP: IS TO START SEEING DR. 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: DR VALLADARES Allergies and Home Medications Allergies Coded Allergies: Sulfa (Sulfonamide Antibiotics) (Verified Allergy, Unknown, 05/24/16) divalproex sodium (Verified Allergy, Unknown, 05/24/16) hydromorphone (Unverified Allergy, Unknown, 08/24/17) iodine (Verified Allergy, Unknown, 05/24/16) Home Medications Alprazolam 0.5 Mg Tablet, 0.5 MG PO TID PRN for ANXIETY, (Reported) Aspirin 81 Mg Tablet.dr, 81 MG PO HS, (Reported) Cholecalciferol (Vitamin D3) 400 Unit Capsule, 400 UNIT PO DAILY, (Reported) Cyanocobalamin 1,000 Mcg/Ml Inj, 1,000 MCG IJ MONTHLY, (Reported) Duloxetine HCl 30 Mg Capsule.dr, 30 MG PO DAILY, (Reported) Folic Acid 0.4 Mg Tablet, 0.4 MG PO DAILY, (Reported) Ibuprofen 200 Mg Tablet, 600-800 MG PO Q6H PRN for PAIN-MILD, (Reported) Lisinopril 40 Mg Tablet, 40 MG PO DAILY, (Reported) Metoprolol Tartrate 25 Mg Tablet, 25 MG PO HS, (Reported) Ondansetron 4 Mg Tab.rapdis, 4 MG PO Q4H Prescribed by: MARJAN STOLL on 06/19/17 1206 Potassium Chloride 10 Meq Tab.er.prt, 10 MEQ PO 1600, (Reported) Pravastatin Sodium 80 Mg Tablet, 80 MG PO HS, (Reported) Prochlorperazine Maleate 10 Mg Tablet, 10 MG PO Q6H PRN for NAUSEA/VOMITING-2ND LINE Prescribed by: MARJAN STOLL on 06/19/17 1206 Prochlorperazine Maleate 10 Mg Tablet, 10 MG PO Q6H PRN for NAUSEA/VOMITING-1ST LINE Prescribed by: WHITLEY WYMAN on 08/24/17 1130 Tizanidine HCl 4 Mg Tablet, 4 MG PO TID PRN for MUSCLE SPASMS, (Reported) Zolpidem Tartrate 10 Mg Tablet, 10 MG PO HS PRN for SLEEP, (Reported) Patient Home Medication List Home Medication List Reviewed: Yes Review of Systems Review of Systems Constitutional: dizziness; No fever EENTM: No Symptoms Reported; No Blurred Vision Respiratory: No Symptoms Reported; Denies Shortness of Air Cardiovascular: See HPI, Chest Pain; Denies Edema; Lightheadedness; Denies Palpitations, Denies Syncope Gastrointestinal: See HPI; Denies Abdominal Pain; Nausea; Denies Vomiting Genitourinary: No Symptoms Reported Musculoskeletal: see HPI Skin: no symptoms reported Psychiatric/Neurological: See HPI, Anxiety (SEVERE), Headache Endocrine: No Symptoms Reported Hematologic/Lymphatic: No Symptoms Reported Past Xxfusno-Ilkruz-Cggdks Hx Patient Social History Alcohol Use: Past History (HISTORY OF MODERATE/HEAVY USE, BUT CLAIMS NONE IN YEARS, PER PT ON 12/25/17) Recreational Drug Use: No Smoking Status: Current Everyday Smoker (1/2-1 PPD) Type Used: Cigarettes (2-1 PPD) 2nd Hand Smoke Exposure: Yes Recent Foreign Travel: No Contact w/Someone Who Travel: No Recent Hopitalizations: No Seasonal Allergies Seasonal Allergies: Yes Past Medical History Surgeries: Yes (COLLOID CYST REMOVED FROM 3RD VENTRICLE 04/2014; CRANIOPLASTY 2015 WITH HARDWARE REMOVAL; CARDIAC CATH 2011--NORMAL; HYST/BSO) Cardiac, Gallbladder, Hysterectomy, Neurological, Oophorectomy, Tonsillectomy Respiratory: No Cardiac: Yes (MVP; "LEAKY AORTIC VALVE" PER PT) Heart Murmur, High Cholesterol, Hypertension, Valvular Heart Disease Neurological: Yes (BRAIN SURGERY X 2 FOR COLLOID CYST 3RD VENTRICLE; CHRONIC DAILY HEADACHES) Headaches /Migraines 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 6.0oz. 68.548993uw; 18.9 BMI Method:Stated General Appearance: WD/WN, Anxious (EXTREMELY ANXIOUS, TREMULOUS, AND IS TENSING HER ENTIRE BODY ) HEENT: PERRL/EOMI, Other (NO SKULL TENDERNESS OR SIGNS OF INFECTION ) Neck: Full Range of Motion, Normal Inspection, Non Tender, Supple; No Carotid Bruit, No JVD Respiratory: Normal Breath Sounds, No Accessory Muscle Use, No Respiratory Distress, Other (TENDERNESS TO RIGHT LOWER CHEST) Cardiovascular: Regular Rate, Rhythm, No Edema, No JVD, No Murmur (UNABLE TO AUSCULTATE MURMUR AT THIS TIME), Normal Peripheral Pulses Gastrointestinal: Normal Bowel Sounds, No Organomegaly, No Pulsatile Mass, Non Tender, Soft Extremity: Normal Capillary Refill, Normal Inspection, Normal Range of Motion, Non Tender, No Calf Tenderness, No Pedal Edema Neurologic/Psychiatric: Alert, Oriented x3, No Motor/Sensory Deficits, take up operator II- XII Norm as Tested Skin: Normal Color, Warm/Dry; No Rash Progress/Results/Core Measures Results/Orders Lab Results Laboratory Tests Test 12/25/17 03:08 12/25/17 05:49 Range/Units White Blood Count 6.6 4.3-11.0 10^3/uL Red Blood Count 4.09 L 4.35-5.85 10^6/uL Hemoglobin 13.6 11.5-16.0 G/DL Hematocrit 38 35-52 % Mean Corpuscular Volume 92 80-99 FL Mean Corpuscular Hemoglobin 33 25-34 PG Mean Corpuscular Hemoglobin Concent 36 32-36 G/DL Red Cell Distribution Width 13.1 10.0-14.5 % Platelet Count 255 130-400 10^3/uL Mean Platelet Volume 9.7 7.4-10.4 FL Neutrophils (%) (Auto) 49 42-75 % Lymphocytes (%) (Auto) 38 12-44 % Monocytes (%) (Auto) 9 0-12 % Eosinophils (%) (Auto) 4 0-10 % Basophils (%) (Auto) 1 0-10 % Neutrophils # (Auto) 3.2 1.8-7.8 X 10^3 Lymphocytes # (Auto) 2.5 1.0-4.0 X 10^3 Monocytes # (Auto) 0.6 0.0-1.0 X 10^3 Eosinophils # (Auto) 0.3 0.0-0.3 10^3/uL Basophils # (Auto) 0.1 0.0-0.1 10^3/uL Prothrombin Time 13.2 12.2-14.7 SEC INR Comment 1.0 0.8-1.4 Activated Partial Thromboplast Time 29 24-35 SEC Sodium Level 137 135-145 MMOL/L Potassium Level 3.7 3.6-5.0 MMOL/L Chloride Level 101 98-107 MMOL/L Carbon Dioxide Level 25 21-32 MMOL/L Anion Gap 11 5-14 MMOL/L Blood Urea Nitrogen 8 7-18 MG/DL Creatinine 1.30 0.60-1.30 MG/DL Estimat Glomerular Filtration Rate 43 BUN/Creatinine Ratio 6 Glucose Level 105 70-105 MG/DL Calcium Level 9.8 8.5-10.1 MG/DL Corrected Calcium 8.5-10.1 MG/DL Magnesium Level 2.2 1.8-2.4 MG/DL Total Bilirubin 0.7 0.1-1.0 MG/DL Aspartate Amino Transf (AST/SGOT) 21 5-34 U/L Alanine Aminotransferase (ALT/SGPT) 21 0-55 U/L Alkaline Phosphatase 40 40-136 U/L Total Creatine Kinase 67 29-168 U/L Creatine Kinase MB 0.4 <6.6 NG/ML Myoglobin 33.6 10.0-92.0 NG/ML Troponin I < 0.30 < 0.30 <0.30 NG/ML B-Type Natriuretic Peptide 113.1 H <100.0 PG/ML Total Protein 7.0 6.4-8.2 GM/DL Albumin 4.7 H 3.2-4.5 GM/DL Amylase Level 33 25-125 U/L Lipase 13 8-78 U/L My Orders Orders - DODIEMARJAN DO Cbc With Automated Diff (12/25/17 03:02) Magnesium (12/25/17 03:02) Chest 1 View, Ap/Pa Only (12/25/17 03:02) Ekg Tracing (12/25/17 03:02) Cardiac Profile 1 (12/25/17 03:02) Comprehensive Metabolic Panel (12/25/17 03:02) Myoglobin Serum (12/25/17 03:02) Protime With Inr (12/25/17 03:02) Partial Thromboplastin Time (12/25/17 03:02) O2 (12/25/17 03:02) Monitor-Rhythm Ecg Trace Only (12/25/17 03:02) Lipid Panel (12/26/17 06:00) Aspirin Chewable Tablet (Baby Aspirin Ch (12/25/17 03:15) Nitroglycerin 0.4 Mg Btl 25's (Nitrostat (12/25/17 03:15) Saline Lock/Iv-Start (12/25/17 03:02) Creatine Kinase (12/25/17 03:02) Creatine Kinase Mb (12/25/17 03:02) Lipase (12/25/17 03:02) Amylase (12/25/17 03:02) BNP (12/25/17 03:02) Ondansetron Injection (Zofran Injectio (12/25/17 03:30) Lorazepam Injection (Ativan Injection) (12/25/17 03:30) Ondansetron Injection (Zofran Injectio (12/25/17 03:16) Nitroglycerin Ointment (Nitrobid Ointme (12/25/17 04:00) Ketorolac Injection (Toradol Injection) (12/25/17 04:00) Ketorolac Injection (Toradol Injection) (12/25/17 03:59) Troponin I (12/25/17 05:50) Ekg Tracing (12/25/17 05:50) Methylprednisolone Sod Succ (Solu-Medrol (12/25/17 06:30) Orphenadrine Injection (Norflex Injectio (12/25/17 06:30) Ondansetron Injection (Zofran Injectio (12/25/17 06:55) Lorazepam Injection (Ativan Injection) (12/25/17 06:56) Medications Given in ED Current Medications Medications Dose Ordered Sig/Francisco Route Start Time Stop Time Status Last Admin Dose Admin Aspirin 324 mg ONCE ONCE PO 12/25/17 03:15 12/25/17 03:16 DC 12/25/17 03:18 324 MG Ketorolac Tromethamine 30 mg ONCE ONCE IVP 12/25/17 04:00 12/25/17 04:10 DC 12/25/17 04:04 30 MG Ketorolac Tromethamine 30 mg STK-MED ONCE .ROUTE 12/25/17 03:59 12/25/17 04:10 DC 12/25/17 04:07 30 MG Lorazepam 1 mg ONCE ONCE IVP 12/25/17 03:30 12/25/17 03:31 DC 12/25/17 03:26 1 MG Methylprednisolone Sodium Succinate 125 mg ONCE ONCE IVP 12/25/17 06:30 12/25/17 06:31 DC 12/25/17 06:34 125 MG Nitroglycerin 0.4 mg UD PRN SL 12/25/17 03:15 12/25/17 03:51 0.4 MG Ondansetron HCl 8 mg ONCE ONCE IVP 12/25/17 03:30 12/25/17 03:31 DC 12/25/17 03:23 8 MG Orphenadrine Citrate 60 mg ONCE ONCE IV 12/25/17 06:30 12/25/17 06:31 DC 12/25/17 06:34 60 MG Vital Signs/I&O 12/25/17 03:02 O2 Delivery Room Air Progress Progress Note : Progress Note NO RELIEF WITH NTG SL X 2 GIVEN ATIVAN AND PT IS MUCH CALMER AND NO LONGER TREMULOUS OR TENSING UP ENTIRE BODY BP DOWN WITH NTG SL TO 110'S/60'S GIVEN TORADOL--COMPLETE RELIEF OF CHEST PAIN AND ASSOCIATED SYMPTOMS, AND HEADACHE IMPROVED BUT NOT GONE--PT STATES HER HEADACHE NEVER GOES AWAY AND IS NORMAL FOR HER. LATER PT REQUESTS SOMETHING ELSE FOR HER HEADACHE--GIVEN SOLU- MEDROL AND NORFLEX NAUSEA COMPLETELY RELIEVED WITH ZOFRAN 0655--NOW BECOMING ANXIOUS AGAIN, TENSING UP ALL OVER, AND C/O NAUSEA AGAIN. BP GOING UP HER ANXIETY IS INCREASING. GIVEN ANOTHER DOSE OF ATIVAN AND ZOFRAN THOSE SYMPTOMS EASED AGAIN, AND BP COMING DOWN AGAIN. CURRENTLY NO BEDS ARE AVAILABLE HERE FOR ADMIT DISCUSSED TRANSFER TO ANOTHER FACILITY, WHICH PT DECLINES WILL OBSERVE IN ER AND REPEAT TROPONIN AND EKG NO RETURN OF CHEST PAIN AT ANY TIME FOR REMAINDER OF ER STAY REPEAT TROPONIN IS NEGATIVE REPEAT EKG IS NORMAL Initial ECG Impression Date: Dec 25, 2017 Initial ECG Impression Time: 03:08 Initial ECG Rate: 72 Initial ECG Rhythm: Normal Sinus Initial ECG Comparisson: Unchanged EKG : EKG Time: 05:59 Rate: 55 Rhythm: Normal Sinus ECG Comparisson: Unchanged Diagnostic Imaging Comments CXR--NO ACUTE PROCESS, PENDING RADIOLOGIST REVIEW Reviewed: Reviewed by Me Departure Impression Primary Impression: Chest pain Additional Impressions: Uncontrolled hypertension CHRONIC DAILY HEADACHES Non-compliance Anxiety Disposition: 01 HOME, SELF-CARE Condition: Improved Departure-Patient Inst. Referrals: [facility] (PCP) Primary Care Physician OSBALDO CORRAL APRN (Family) Primary Care Physician PARDEEP VALLADARES MD Patient Instructions: Anxiety, Adult (DC), Chest Pain (DC), Controlling Your Blood Pressure Through Lifestyle, DASH Diet, High Blood Pressure (DC) Add. Discharge Instructions: TAKE ALL OF YOUR MEDICATIONS EVERY DAY EXACTLY PRESCRIBED CALL DR. VALLAADRES'S OFFICE TODAY FOR FOLLOW UP APPOINTMENT RETURN TO ER IF WORSE MARJAN STOLL DO Dec 25, 2017 03:30
[2017-12-25 03:32] LABS: PROTHROMBIN TIME PATIENT 13.2 SEC (12.2-14.7)
[2017-12-25 03:49] LABS: ALANINE AMINOTRANSFERASE 21 U/L (0-55); ALBUMIN 4.7 GM/DL (3.2-4.5); ALKALINE PHOSPHATASE 40 U/L (40-136); AMYLASE 33 U/L (25-125); BILIRUBIN,TOTAL 0.7 MG/DL (0.1-1.0); BUN/CREATININE RATIO 6; CALCIUM 9.8 MG/DL (8.5-10.1); CARBON DIOXIDE 25 MMOL/L (21-32); CHLORIDE 101 MMOL/L (98-107); CREATINE KINASE 67 U/L (29-168); GFR ESTIMATED 43; GLUCOSE 105 MG/DL (70-105); LIPASE 13 U/L (8-78); MAGNESIUM 2.2 MG/DL (1.8-2.4); POTASSIUM 3.7 MMOL/L (3.6-5.0); SODIUM 137 MMOL/L (135-145)
[2017-12-25 03:59] LABS: CREATINE KINASE MB 0.4 NG/ML (<6.6); MYOGLOBIN SERUM 33.6 NG/ML (10.0-92.0)
--- NOTE | 2017-12-25 06:38 | Diagnostic Imaging Report ---
INDICATION: Chest pain. TECHNIQUE: Single view chest 3:32 AM. CORRELATION STUDY: 03/05/2017 FINDINGS: Heart size stable. Slight prominent appearance in the region of the ascending aorta. Mediastinal configuration otherwise unremarkable. Vasculature within normal limits. Linear density of the right lung base medially projected over the eulogio. This is nonspecific and could be reflective of underlying small anomalous vasculature. Lung volumes appearing symmetric and normal. IMPRESSION: 1. Negative for acute abnormality of the chest. Slight prominent appearance about the ascending aorta can be associated with aortic valve disease and persistent arterial hypertension. Dictated by: Dictated on workstation # [id number]
[2017-12-25] MEDS: ONDANSETRON 4 MG/2 ML (SDV) Z0FRAN ONE (07:02)
[2017-12-25 07:30] VITALS: BP 161/82
== END | disposition home or self-care (01) ==
LOC: EDUNIT# 02:56 → ER 02:58
DX: R07.9 Chest pain, unspecified (principal); I10 Essential (primary) hypertension; R51 Headache; F41.9 Anxiety disorder, unspecified; E78.00 Pure hypercholesterolemia, unspecified; G43.909 Migraine, unspecified, not intractable, without status migrainosus; F32.9 Major depressive disorder, single episode, unspecified; F17.210 Nicotine dependence, cigarettes, uncomplicated; Z98.890 Other specified postprocedural states; Z90.710 Acquired absence of both cervix and uterus; Z90.89 Acquired absence of other organs; Z88.2 Allergy status to sulfonamides; Z88.5 Allergy status to narcotic agent; Z91.041 Radiographic dye allergy status; Z88.8 Allergy status to other drugs, medicaments and biological substances; Z79.82 Long term (current) use of aspirin; Z91.14 Patient's other noncompliance with medication regimen
CPT/HCPCS: 36415; 71045; 80053; 82150; 82550; 82553; 83690; 83735; 83874; 83880; 84484; 85025; 85610; 85730; 93005; 93041

== ENCOUNTER 2017-12-28 14:09 | Emergency (ER) | payer MEDICARE, MEDICAID ==
[~2017-12-28] VITALS: Ht 172.7 cm; Wt 64.4 kg
[~2017-12-28 14:09] MED LIST changes: -ASPIRIN 81 MG CHEW (CHILDREN'S ASA) PO ONE; -KETOROLAC 30 MG/ML VIAL IVP ONE; -KETOROLAC 30 MG/ML VIAL ONE; -LORazepam INJ 2 MG/ML (ATIVAN) VIAL IVP ONE; -LORazepam INJ 2 MG/ML (ATIVAN) VIAL ONE; -NITROGLYCERIN 2% OINT 1 GM UNIT DOSE PACKET TOP ONE; -ONDANSETRON 4 MG/2 ML (SDV) Z0FRAN IVP ONE; -ONDANSETRON 4 MG/2 ML (SDV) Z0FRAN ONE; -ORPHENADRINE 60 MG/2 ML (NORFLEX) AMP IV ONE; -methylPREDNISolone 125 MG (Solu-MEDROL) VIAL IVP ONE
--- OUTSIDE RECORDS SUMMARY | 2017-12-28 14:16 | XMS REPORT | Clinical Summary ---
Author Author [facility] Organization [facility] Address Unknown Phone Unavailable Care Team Providers Care Work Ticket Distributor Name Role Phone Fidencio Fitzgerald MD PCP Source Comments Some departments are not documenting in the electronic medical record. If you do not see the information that you expected, contact Release of Information in the Health Information Management department at [phone] for further assistance in locating additional records.[facility] Allergies Active Allergy Reactions Severity Noted Date [...] Active tablet ONCE DAILY AT BEDTIME 17 Unpalom-Fjndgjcjd-Ufqa Take 1 tablet by mouth Active tab [...] 08/23/2015 VACCINE (1 of 2) INFLUENZA VACCINE 10/28/2017 Procedures Procedure Name Priority Date/Time Associated Diagnosis [...]
--- OUTSIDE RECORDS SUMMARY | 2017-12-28 14:16 | XMS REPORT | Encounter Summary ---
Author Author [facility] Organization [facility] Address Unknown Phone Unavailable Care Team Providers Care Bucket Operator Name Role Phone Fidencio Fitzgerald MD PCP Encounter Details Date Type Department Care Team Description 12/03/2017 Telephone [facility] Harpreet Reilly MD Physicians-Neurology [address] [facility] [place] [address] [address] [place] [address] [place], [place] [phone] Social History Tobacco Use Types Packs/Day Years Used Date Current Every Day Smoker 0.5 Smokeless Tobacco: Never Used Alcohol Use Drinks/Week oz/Week Comments No Sex Assigned at Date Recorded Not on file as of this encounter Miscellaneous Notes * Telephone Encounter - Janie Gaxiola - 12/03/2017 11:41 AM CDT Received prior auth requst from [facility] [phone] submitted via covermymeds. in this encounter Plan of Treatment Not on fileas of this encounter Visit Diagnoses Not on filein this encounter
--- OUTSIDE RECORDS SUMMARY | 2017-12-28 14:16 | XMS REPORT | Encounter Summary ---
Author Author [facility] Organization [facility] Address Unknown Phone Unavailable Care Team Providers Care Industrial Maintenance Millwright Name Role Phone Fidencio Fitzgerald MD PCP Reason for Visit * Reason Comments Other Encounter Details Date Type Department Care Team Description 12/07/2017 Telephone [facility] Harpreet Reilly MD Other Physicians-Neurology [address] [facility] [place] [address] [address] [place] [address] [place], [place] [phone] Social History Tobacco Use Types Packs/Day Years [...]
--- OUTSIDE RECORDS SUMMARY | 2017-12-28 14:16 | XMS REPORT | Encounter Summary ---
Author Author [facility] Organization [facility] Address Unknown Phone Unavailable Care Team Providers Care Finish Sander Name Role Phone Fidencio Fitzgerald MD PCP Encounter Details Date Type Department Care Team Description 12/01/2017 Ancillary Rad Outpatient, Radiologist Diagnosis unknown Orders [address] [place] [address] Social History Tobacco Use Types [...]
--- OUTSIDE RECORDS SUMMARY | 2017-12-28 14:16 | XMS REPORT | Encounter Summary ---
Author Author [facility] Organization [facility] Address Unknown Phone Unavailable Care Team Providers Care Electrical Apprentice Name Role Phone Fidencio Fitzgerald MD PCP Reason for Visit * Reason Comments Medication Question indomethacin Encounter Details Date Type Department Care Team Description 11/27/2017 Telephone [facility] Shawn Pressley MD Medication Question Physicians-Neurology [address] [facility] (indomethacin) [facility] [place] [address] [address] [place] [address] Social History Tobacco Use Types [...]
--- OUTSIDE RECORDS SUMMARY | 2017-12-28 14:17 | XMS REPORT | Encounter Summary ---
Author Author [facility] Organization [facility] Address Unknown Phone Unavailable Care Team Providers Care Press Hand Supervisor Name Role Phone Fidencio Fitzgerald MD PCP Reason for Visit * Reason Comments Pre-Visit Planning Dr. Pressley 11/26/17 Encounter Details Date Type Department Care Team Description 11/23/2017 Telephone [facility] Logan Mathew MD Pre- Visit Planning ( Physicians-Neurology [address] 11/26/17) [facility] [place] [address] [address] [facility] [place] [address] Social History Tobacco Use Types [...] Referring provider: 11/20/17 Dr. Contreras E[facility] Neurology: Dr. Gonzalez 10/05/17 - [facility] (available in Care Everywhere) "Patient reports that [...] the colloid cyst by Dr Cuevas at [facility]. Few months later, the patient reported that [...] has to be evaluated by ENT (preferably neuro-protective signal installer helper for evaluation and management ). 3- patient [...] should be treated medically. Dr. Cuevas 06/03/16 [facility] (available in Care Everywhere) 1 year follow-up [...] care with an neurologist since moving to [facility]. She denies visual changes, progressive weakness, or recent trauma/falls Imaging: MRI Brain w/wo 10/14/17 - [facility] (patient will bring disc) IMPRESSION: Postsurgical changes [...]
--- OUTSIDE RECORDS SUMMARY | 2017-12-28 14:17 | XMS REPORT | Encounter Summary ---
Author Author [facility] Organization [facility] Address Unknown Phone Unavailable Care Team Providers Care Ferry Terminal Agent Name Role Phone Fidencio Fitzgerald MD PCP Reason for Referral * Consult, Test & Treat (Routine) Status Reason Specialty Diagnoses / Referred By Referred To Procedures Contact Contact New Request Specialty Psychiatry Diagnoses Harpreet Reilly, [facility] Chronic Ortho and Medical Required intractable [address] headache, [address] unspecified [place] [address] [place] [address] Scalp injury, [address] Phone: sequela [phone] * Consult, Test & Treat (Routine) Status Reason Specialty Diagnoses / Referred By Referred To Procedures Contact Contact Closed Specialty Integrative Diagnoses Harpreet Reilly [facility] Medicine Chronic MD Med Required intractable [address], [address] unspecified [place] [address] [place], [place] [address] Scalp injury, [address] Phone: sequela [phone] Reason for Visit * Reason Comments Pain skull pain * Consult, Test & Treat (Routine) Status Reason Specialty Diagnoses / Referred By Referred To Procedures Contact Contact No Auth Needed Neurology Procedures Contreras Easley Bellew, Michael R , NEW PATIENT AFSHAN STERN [address] [place] [address] Encounter Details Date Type Department Care Team Description 11/26/2017 Office Visit [facility] Shawn Pressley MD Chronic intractable Physicians-Neurology [address] headache, unspecified [facility] [place] [address] headache type (Primary [address]); [place], [place] Scalp injury, sequela [phone] Social History [...] presents as a referral from Neurology in [place] for intractable head pain. Patient states that [...] everyday." Patient was seen by neurosurgery at [facility] in 12/2016 for evaluation of the headache [...] what was documented by Dr. Gonzalez from [facility] in [place] note dated 10/05/17. Patient states she has [...] ONE TABLET BY MOUTH THREE TIMES DAILY Djbpbrk-Nkamobjoe-Mkjh tab Take 1 tablet by mouth twice [...] flap. When she last saw neurosurgery at [facility], notes did not mention altered anatomy or [...]
--- OUTSIDE RECORDS SUMMARY | 2017-12-28 14:17 | XMS REPORT | Encounter Summary ---
Author Author [facility] Organization [facility] Address Unknown Phone Unavailable Care Team Providers Care Batter Out Name Role Phone Fidencio Fitzgerald MD PCP Encounter Details Date Type Department Care Team Description 10/14/2017 Hospital [facility] Encounter Hospital Radiology [facility] [address] [place] [address] Social History Tobacco Use Types Packs/Day Years [...] MOUTH 0 12/11/2016 tablet THREE TIMES DAILY Txpdnfw-Cmjggcpez-Yykr Take 1 tablet by mouth tab twice [...]
--- OUTSIDE RECORDS SUMMARY | 2017-12-28 14:18 | XMS REPORT ---
Author Author OSBALDO CORRAL Organization [facility] Address [address] [place] [address] Care Team Providers Care Slipman Name Role Phone OSBALDO CORRAL Unavailable PROBLEMS Type Condition ICD9-CM Code ASU24-JC Code Onset Dates Condition Status SNOMED Code Problem Anxiety, generalized F41.1 Active 42275674 Problem Essential hypertension I10 Active 45948679 Problem Major depressive disorder, recurrent episode, moderate F33.1 Active 047869346 Problem Abnormal laboratory test R89.9 Active 065894777 Problem Vitamin B12 deficiency anemia due to intrinsic factor deficiency D51.0 Active 99371928 Problem Seasonal allergic rhinitis, unspecified allergic rhinitis trigger J30.2 Active 205140349 Problem Chronic pain due to trauma G89.21 Active 980226628 Problem Migraine without status migrainosus, not intractable, unspecified migraine type G43.909 Active 90498189 Problem Adjustment disorder with mixed anxiety and depressed mood F43.23 Active 25151973 Problem Elevated serum creatinine R79.89 Active 142327782 Problem 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 [id number] [address] Dec, [facility] [address] [id number] [address] Nov, Chronic pain due to trauma G89.21 and Anxiety, generalized F41.1 [facility] [address] [id number] [address] Oct, [facility] [id number] [place] [address] 74218- 0797 Oct, Abnormal laboratory test R89.9 [facility] [id number] [place] [address] 57570- 4000 Oct, [facility] [id number] [place] [address] 23215- 5953 Oct, [facility] [address] [address] Oct, Essential hypertension I10 [facility] [id number] [place] [address] 33140- 3713 Oct, [facility] [id number] [place] [address] 40667- 0785 Oct, [facility] [id number] [place] [address] 65565- 7878 Oct, Essential hypertension I10 ; Chronic nausea R11.0 ; Hypokalemia E87.6 ; Abnormal thyroid stimulating hormone (TSH) level R79.89 and Recurrent acute suppurative otitis media without spontaneous rupture of left tympanic membrane H66.005 [facility] [id number] [place] [address] 59390- 2828 Oct, [facility] [id number] [place] [address] 77480- 9965 Oct, Chronic pain due to trauma G89.21 and Anxiety, generalized F41.1 [facility] [id number] [place] [address] 46339- 0364 Oct, [facility] [id number] [place] [address] 94440- 3934 Sep, Anxiety, generalized F41.1 and Chronic pain due to trauma G89.21 [facility] [id number] [place] [address] 06001- 9324 Sep, [facility] [id number] [place] [address] 35488- 8820 Sep, Otalgia of left ear H92.02 and Low pressure hydrocephalus G91.2 [place] [address] 8[address]78- 5829 Sep, [place] [id number] [place] [address] 02737- 9430 Aug, Essential hypertension I10 ; 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 ; Empty sella syndrome E23.6 ; Pernicious anemia D51.0 ; Anxiety , generalized F41.1 ; Major depressive disorder, recurrent episode, moderate F33.1 ; Primary insomnia F51.01 ; Hypokalemia E87.6 and Chronic pain due to trauma G89.21 [place] [id number] [place] [address] 63038- 7669 Aug, [place] [address] 44919- 4019 Aug, Anxiety, generalized F41.1 and Osteoarthritis of spine with radiculopathy, lumbosacral region M47.27 [place] [id number] [place] [address] 90200- 0096 Aug, [place] [id number] [place] [address] 42042- 5192 Aug, Primary insomnia F51.01 [place] [id number] [place] [address] 65888- 6040 July, Anxiety, generalized F41.1 and Osteoarthritis of spine with radiculopathy, lumbosacral region M47.27 [place] [id number] [place] [address] 97143- 9534 July, Essential hypertension I10 [place] [id number] [place] [address] 28688- 2109 July, Major depressive disorder, recurrent episode, moderate F33.1 [place] [id number] [place] [address] 20356- 8801 July, Primary insomnia F51.01 [place] [id number] [place] [address] 99066- 7990 Jun, Anxiety, generalized F41.1 and Osteoarthritis of spine with radiculopathy, lumbosacral region M47.27 [facility] [id number] [place] [address] 73851 -8274 Jun, Acute frontal sinusitis, recurrence not specified J01.10 ; Sinus pressure J34.89 ; Post-nasal drip R09.82 and Sore throat J02.9 [place] [address] 99009- 8373 Jun, Primary insomnia F51.01 [place] [id number] [place] [address] 20249- 5399 May, Anxiety, generalized F41.1 and Osteoarthritis of spine with radiculopathy, lumbosacral region M47.27 [place] [id number] [place] [address] 41679- 0551 May, Essential hypertension I10 ; 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 ; Empty sella syndrome E23.6 ; Pernicious anemia D51.0 ; Major depressive disorder, recurrent episode, moderate F33.1 ; Primary insomnia F51.01 ; Other hyperlipidemia E78.4 and Anxiety, generalized F41.1 [place] [id number] [place] [address] 49502- 8425 May, Vitamin B12 deficiency anemia due to intrinsic factor deficiency D51.0 and Pernicious anemia D51.0 [facility] [id number] [place] [address] 33980 -4482 May, Migraine without status migrainosus, not intractable, unspecified migraine type G43.909 [place] [id number] [place] [address] 19255- 2448 May, [place] [address] 47333- 8866 14 May, 2017 [place] [id number] [place] [address] 93980- 8744 May, Osteoarthritis of spine with radiculopathy, lumbosacral region M47.27 and Primary insomnia F51.01 [place] [id number] [place] [address] 52938- 7785 May, Osteoarthritis of spine with radiculopathy, lumbosacral region M47.27 and Anxiety, generalized F41.1 [place] [id number] [place] [address] 15455- 1862 May, [place] [address] 21867- 9541 28 Apr, 2017 [place] [id number] [place] [address] 97917- 0967 Apr, [place] [id number] [place] [address] 02843- 3026 Apr, Anxiety, generalized F41.1 ; Major depressive disorder, recurrent episode, moderate F33.1 ; Moderate episode of recurrent major depressive disorder F33.1 and Adjustment disorder with mixed anxiety and depressed mood F43.23 [place] [id number] [place] [address] 58113- 1988 Apr, Major depressive disorder, recurrent episode, moderate F33.1 ; Anxiety, generalized F41.1 ; Essential hypertension I10 ; Primary insomnia F51.01 and 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 [place] [id number] [place] [address] 55476- 5278 09 Apr, 2017 Other chest pain R07.89 ; Sinus bradycardia R00.1 ; Essential hypertension I10 and Other hyperlipidemia E78.4 [place] [id number] [place] [address] 48968- 2589 08 Apr, 2017 Primary insomnia F51.01 [place] [address] 28870- 9798 Apr, [place] [id number] [place] [address] 23913- 5142 Apr, Anxiety, generalized F41.1 [place] [address] 56968- 3009 Apr, Osteoarthritis of spine with radiculopathy, lumbosacral region M47.27 [place] [address] 94313- 3744 Mar, Intractable migraine without aura and without status migrainosus G43.019 and Dyshidrotic hand dermatitis L30.1 [facility] [place] [address] 55749 -2423 Mar, Skin infection L08.9 [place] [address] 44552- 1555 Mar, [facility] [place] [address] 72043 -0778 Mar, Skin lesion L98.9 [place] [address] 65015- 3007 Mar, Primary insomnia F51.01 and Anxiety, generalized F41.1 [place] [address] 13333- 9946 Mar, Osteoarthritis of spine with radiculopathy, lumbosacral region M47.27 [place] [id number] [place] [address] 99691- 0338 Feb, [place] [address] 86062- 9959 Feb, [place] [address] 21164- 0475 Feb, Hypokalemia E87.6 [place] [address] 20530- 9992 Feb, Intractable migraine without aura and without status migrainosus G43.019 and Other chest pain R07.89 [place] [id number] [place] [address] 78785- 0069 Feb, [place] [address] 06120- 3554 Feb, Osteoarthritis of spine with radiculopathy, lumbosacral region M47.27 [place] [address] 77489- 6266 Feb, Hypokalemia E87.6 [place] [address] 60202- 9293 Feb, [place] [address] 06699- 6372 Feb, Primary insomnia F51.01 and Anxiety, generalized F41.1 [facility] [place] [address] 12817 -5188 Feb, Acute suppurative otitis media of both ears without spontaneous rupture of tympanic membranes, recurrence not specified H66.003 [place] [id number] [place] [address] 81815- 0404 Feb, [place] [id number] [place] [address] 45262- 8845 Jan, Osteoarthritis of spine with radiculopathy, lumbosacral region M47.27 [place] [id number] [place] [address] 86859- 5996 Jan, Primary insomnia F51.01 and Anxiety, generalized F41.1 [place] [address] 80174- 9120 Jan, Chronic pain due to trauma G89.21 ; Left otitis media with effusion H65.92 and Otalgia of left ear H92.02 [facility] [address] [place] [address] 52352 -1303 Jan, Bilateral otitis media with effusion H65.93 [place] [address] 34609- 8452 Dec, [place] [address] 89641- 7978 Dec, Primary insomnia F51.01 and Anxiety, generalized F41.1 [place] [address] 94322- 1086 Nov, [place] [address] 48433- 4136 Nov, [place] [address] 39864- 1255 Nov, Anxiety, generalized F41.1 [place] [address] 09921- 3788 Nov, Pernicious anemia D51.0 [place] [address] 20436- 1845 Nov, Primary insomnia F51.01 [place] [address] 34318- 2206 Nov, Encounter for well woman exam with routine gynecological exam Z01.419 ; Screening breast examination Z12.31 and Otalgia of left ear H92.02 [place] [address] 44627- 3302 Oct, [facility] [address] 96906 -0572 Oct, Insect bite (nonvenomous) of right upper arm, initial encounter S40.861A [place] [address] 16252- 7539 Oct, Pernicious anemia D51.[address] 90485- 2367 07 Oct, 2016 Anxiety, generalized F41.1 and Pernicious anemia D51.0 [place] [id number] [place] [address] 18694- 7890 Oct, Encounter to establish care with new doctor Z76.89 ; Moderate episode of recurrent major depressive disorder F33.1 ; Empty sella syndrome E23.6 ; Seasonal allergic rhinitis, unspecified allergic rhinitis trigger J30.2 ; Essential hypertension I10 and Osteoarthritis of spine with radiculopathy, lumbosacral region M47.27 [place] [address] 83942- 2495 Aug, [place] [address] 24977- 9188 Aug, [place] [address] 55696- 6686 13 Aug, 2016 Anxiety, generalized F41.1 [place] [address] 73898- 4625 08 Aug, 2016 [place] [address] 00300- 4636 07 Aug, 2016 Primary insomnia F51.01 ; Essential hypertension I10 ; Empty sella syndrome E23.6 and Chronic pain due to trauma G89.21 [place] [id number] [place] [address] 51312- 0977 July, Primary insomnia F51.01 [facility] [id number] [place] [address] 36310 -5848 July, Seasonal allergic rhinitis, unspecified allergic rhinitis trigger J30.2 and Acute suppurative otitis media of right ear without spontaneous rupture of tympanic membrane, recurrence not specified H66.001 [facility] [id number] [place] [address] 27489 -3032 July, Acute suppurative otitis media of left ear without spontaneous rupture of tympanic membrane, recurrence not specified H66.002 [place] [address] 33091- 4211 July, [facility] [id number] [place] [address] 52957- 0483 July, Anxiety, generalized F41.1 [facility] [id number] [place] [address] 56397- 9803 Jun, [facility] [id number] [place] [address] 93047- 9758 Jun, Primary insomnia F51.01 [facility] [id number] [place] [address] 01041- 2907 Jun, Empty sella syndrome E23.6 ; Primary insomnia F51.01 and Hypokalemia E87.6 [facility] [id number] [place] [address] 72291- 6193 Jun, [facility] [id number] [place] [address] 47231- 5851 Jun, [facility] [id number] [place] [address] 92754- 0385 Jun, Empty sella syndrome E23.6 [facility] [id number] [place] [address] 19967- 3707 Jun, Anxiety, generalized F41.1 [facility] [id number] [place] [address] 97893- 6210 Jun, [facility] [id number] [place] [address] 15057- 7379 Jun, Empty sella syndrome E23.6 [facility] [id number] [place] [address] 40572- 4477 May, [facility] [id number] [place] [address] 22793- 9258 May, [facility] [id number] [place] [address] 06706- 0581 May, Empty sella syndrome E23.6 [facility] [id number] [place] [address] 31295- 9774 May, [facility] [id number] [place] [address] 89990- 1959 May, [facility] [id number] [place] [address] 33215- 9761 May, Primary insomnia F51.01 [facility] [address] 53869- 9182 May, [place] [id number] [place] [address] 33640- 9537 May, Nausea R11.0 ; Other headache syndrome G44.89 and Malignant hypertension I10 [place] [id number] [place] [address] 71637- 1310 07 May, 2016 Anxiety, generalized F41.1 [place] [id number] [place] [address] 68299- 8709 28 Apr, 2016 Major depressive disorder, recurrent episode, moderate F33.1 [place] [id number] [place] [address] 23374- 0980 28 Apr, 2016 Moderate episode of recurrent major depressive disorder F33.1 [place] [id number] [place] [address] 52217- 7357 27 Apr, 2016 Other chronic postprocedural pain G89.28 [place] [id number] [place] [address] 04756- 2764 15 Apr, 2016 Major depressive disorder, recurrent episode, moderate F33.1 [facility] [id number] [place] [address] 57964- 8163 07 Apr, 2016 Anxiety, generalized F41.1 [facility] [id number] [place] [address] 36552- 7113 03 Apr, 2016 [facility] [id number] [place] [address] 44638- 3241 Mar, Other chronic postprocedural pain G89.28 ; Status post craniotomy Z98.890 ; Encounter for drug screening Z02.83 and Hematuria R31.9 [place] [address] 66864- 9499 Mar, Major depressive disorder, recurrent episode, moderate F33.[address] 77952- 3617 Mar, [place] [address] 46176- 9443 Mar, Anxiety, generalized F41.[address] 30999- 1824 Mar, Anxiety, generalized F41.1 and Pernicious anemia D51.[address] 58550- 8197 Mar, 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 and Status post craniotomy Z98.890 [place] [address] 94983- 6192 Mar, Primary insomnia F51.[address] 73098- 9971 Feb, [address] 49309- 8639 Feb, Encounter to establish care Z76.89 ; Status post craniotomy Z98.890 ; 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
--- NOTE | 2017-12-28 14:39 | ED Headache ---
General Chief Complaint: Head/Cervical Problems Stated Complaint: POST OP COMPLICATIONS BONE FLAP SLIP Nursing Triage Note: PT PRESENTS TO ER WITH COMPLAINT OF HEAD ACHE, FEVER OF 99.7, FLUID BEHIND LEFT EAR, NAUSEA, DIZZINESS, AND STATES SHE THINKS THE "BONE FLAP" FROM HER CRANIOTOMY HAS MOVED. PT HAD CRANIOTOMY IN 2014. Nursing Sepsis Screen: No Definite Risk Source: patient Exam Limitations: no limitations History of Present Illness Date Seen by Provider: Dec 28, 2017 Time Seen by Provider: 14:38 Initial Comments To ER with reports of headache, fever of "99.7" nausea. She had surgery at [facility] [place] in 2014 for colloid cyst. She then had hardware removed from the skull and 2016. She states that a few days ago her bone flap "shifted" . When asked why she thinks it shifted she states "I can just tell". She denies any injuries to the head. Severity/Quality: severe Location: frontal, parietal (right sided) Associated Symptoms: No confusion; fever/chills, nausea/vomiting Allergies and Home Medications Allergies Coded Allergies: Sulfa (Sulfonamide Antibiotics) (Verified Allergy, Unknown, 05/24/16) divalproex sodium (Verified Allergy, Unknown, 05/24/16) hydromorphone (Unverified Allergy, Unknown, 08/24/17) iodine (Verified Allergy, Unknown, 05/24/16) Home Medications Alprazolam 0.5 Mg Tablet, 0.5 MG PO TID PRN for ANXIETY, (Reported) Aspirin 81 Mg Tablet.dr, 81 MG PO HS, (Reported) Cholecalciferol (Vitamin D3) 400 Unit Capsule, 400 UNIT PO DAILY, (Reported) Cyanocobalamin 1,000 Mcg/Ml Inj, 1,000 MCG IJ MONTHLY, (Reported) Duloxetine HCl 30 Mg Capsule.dr, 30 MG PO DAILY, (Reported) Folic Acid 0.4 Mg Tablet, 0.4 MG PO DAILY, (Reported) Ibuprofen 200 Mg Tablet, 600-800 MG PO Q6H PRN for PAIN-MILD, (Reported) Lisinopril 40 Mg Tablet, 40 MG PO DAILY, (Reported) Metoprolol Tartrate 25 Mg Tablet, 25 MG PO HS, (Reported) Ondansetron 4 Mg Tab.rapdis, 4 MG PO Q4H Prescribed by: MARJAN STOLL on 06/19/17 1206 Potassium Chloride 10 Meq Tab.er.prt, 10 MEQ PO 1600, (Reported) Pravastatin Sodium 80 Mg Tablet, 80 MG PO HS, (Reported) Prochlorperazine Maleate 10 Mg Tablet, 10 MG PO Q6H PRN for NAUSEA/VOMITING-2ND LINE Prescribed by: MARJAN STOLL on 06/19/17 1206 Prochlorperazine Maleate 10 Mg Tablet, 10 MG PO Q6H PRN for NAUSEA/VOMITING-1ST LINE Prescribed by: WHITLEY WYMAN on 08/24/17 1130 Tizanidine HCl 4 Mg Tablet, 4 MG PO TID PRN for MUSCLE SPASMS, (Reported) Zolpidem Tartrate 10 Mg Tablet, 10 MG PO HS PRN for SLEEP, (Reported) Patient Home Medication List Home Medication List Reviewed: Yes Review of Systems Review of Systems Constitutional: see HPI; No chills; fever Eyes: No Symptoms Reported Ears, Nose, Mouth, Throat: no symptoms reported Respiratory: no symptoms reported Cardiovascular: no symptoms reported Genitourinary: no symptoms reported Musculoskeletal: no symptoms reported Skin: no symptoms reported Psychiatric/Neurological: See HPI, Headache Past Mplzhxw-Pnxipd-Cwbixz Hx Patient Social History Alcohol Use: Denies Use Recreational Drug Use: No Smoking Status: Current Everyday Smoker Type Used: Cigarettes 2nd Hand Smoke Exposure: Yes Recent Foreign Travel: No Contact w/Someone Who Travel: No Recent Infectious Disease Expo: No Recent Hopitalizations: No Immunizations Up To Date Tetanus Booster (TDap): Unknown PED Vaccines UTD: Yes Seasonal Allergies Seasonal Allergies: Yes Past Medical History Surgeries: Yes Cardiac, Gallbladder, Hysterectomy, Neurological, Oophorectomy, Tonsillectomy Respiratory: No Cardiac: Yes (MVP; "LEAKY AORTIC VALVE" PER PT) Heart Murmur, High Cholesterol, Hypertension, Valvular Heart Disease Neurological: Yes (BRAIN SURGERY X 2 FOR COLLOID CYST 3RD VENTRICLE; CHRONIC DAILY HEADACHES) 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, 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 Genitourinary: No Gastrointestinal: No Musculoskeletal: Yes (Craniotomy with hardware) Chronic Back Pain Endocrine: No HEENT: Yes (FLUID BEHIND EAR DRUMS--"BEING EVALUATED FOR POSSIBLE CSF LEAK') Cancer: No Psychosocial: Yes (SUICIDAL IDEATION) Sleep Difficulties, Anxiety, Depression Integumentary: No Blood Disorders: No Family Medical History No Pertinent Family Hx Physical Exam Vital Signs Vital Signs - First Documented 12/28/17 14:25 Temp 99.3 Pulse 65 Resp 16 B/P (MAP) 203/100 (134) Pulse Ox 98 O2 Delivery Room Air Capillary Refill : Less Than 3 Seconds Height, Weight, BMI Height: 5'8.00" Weight: 142lbs. 6.0oz. 64.366410bu; 18.9 BMI Method:Stated General Appearance: WD/WN, no apparent distress HEENT: PERRL/EOMI, normal ENT inspection, other (the scalp area overlying the area of former bone flap is normal in color without erythema swelling or ecchymosis. It is very tender to palpation.) Neck: non-tender, full range of motion Respiratory: normal breath sounds, no respiratory distress, no accessory muscle use Gastrointestinal: normal bowel sounds, non tender Extremities: normal range of motion, non-tender Psychiatric: alert, oriented x 3 Crainal Nerves: normal hearing, normal speech, PERRL Skin: normal color, warm/dry Progress/Results/Core Measures Results/Orders Lab Results Laboratory Tests Test 12/28/17 15:40 Range/Units White Blood Count 7.6 4.3-11.0 10^3/uL Red Blood Count 4.08 L 4.35-5.85 10^6/uL Hemoglobin 13.3 11.5-16.0 G/DL Hematocrit 37 35-52 % Mean Corpuscular Volume 92 80-99 FL Mean Corpuscular Hemoglobin 33 25-34 PG Mean Corpuscular Hemoglobin Concent 36 32-36 G/DL Red Cell Distribution Width 13.1 10.0-14.5 % Platelet Count 280 130-400 10^3/uL Mean Platelet Volume 9.6 7.4-10.4 FL Neutrophils (%) (Auto) 58 42-75 % Lymphocytes (%) (Auto) 30 12-44 % Monocytes (%) (Auto) 10 0-12 % Eosinophils (%) (Auto) 2 0-10 % Basophils (%) (Auto) 0 0-10 % Neutrophils # (Auto) 4.4 1.8-7.8 X 10^3 Lymphocytes # (Auto) 2.3 1.0-4.0 X 10^3 Monocytes # (Auto) 0.7 0.0-1.0 X 10^3 Eosinophils # (Auto) 0.2 0.0-0.3 10^3/uL Basophils # (Auto) 0.0 0.0-0.1 10^3/uL Sodium Level 137 135-145 MMOL/L Potassium Level 4.1 3.6-5.0 MMOL/L Chloride Level 100 98-107 MMOL/L Carbon Dioxide Level 26 21-32 MMOL/L Anion Gap 11 5-14 MMOL/L Blood Urea Nitrogen 11 7-18 MG/DL Creatinine 1.28 0.60-1.30 MG/DL Estimat Glomerular Filtration Rate 44 BUN/Creatinine Ratio 9 Glucose Level 105 70-105 MG/DL Calcium Level 9.9 8.5-10.1 MG/DL Corrected Calcium 8.5-10.1 MG/DL Total Bilirubin 0.7 0.1-1.0 MG/DL Aspartate Amino Transf (AST/SGOT) 15 5-34 U/L Alanine Aminotransferase (ALT/SGPT) 14 0-55 U/L Alkaline Phosphatase 34 L 40-136 U/L Total Protein 6.9 6.4-8.2 GM/DL Albumin 4.7 H 3.2-4.5 GM/DL My Orders Orders - MARLEN FLANAGAN APRN Ct Head Wo (12/28/17 14:36) Cbc With Automated Diff (12/28/17 14:36) Comprehensive Metabolic Panel (12/28/17 14:36) Iv Heplock-Insert (Order) (12/28/17 14:36) Ketorolac Injection (Toradol Injection) (12/28/17 14:45) Diphenhydramine Injection (Benadryl Inje (12/28/17 14:45) Prochlorperazine Injection (Compazine In (12/28/17 14:45) Hs C Reactive Protein (12/28/17 14:39) Erythrocyte Sedimentation Rate (12/28/17 14:39) Metoprolol Tartrate Injection (Lopressor (12/28/17 14:45) Medications Given in ED Current Medications Medications Dose Ordered Sig/Francisco Route Start Time Stop Time Status Last Admin Dose Admin Diphenhydramine HCl 25 mg ONCE ONCE IVP 12/28/17 14:45 12/28/17 14:46 DC 12/28/17 15:44 25 MG Ketorolac Tromethamine 15 mg ONCE ONCE IVP 12/28/17 14:45 12/28/17 14:46 DC 12/28/17 15:46 15 MG Metoprolol Tartrate 5 mg ONCE ONCE IV 12/28/17 14:45 12/28/17 14:46 DC 12/28/17 15:49 5 MG Prochlorperazine Edisylate 5 mg ONCE ONCE IV 12/28/17 14:45 12/28/17 14:46 DC 12/28/17 15:47 5 MG Vital Signs/I&O 12/28/17 14:25 Temp 99.3 Pulse 65 Resp 16 B/P (MAP) 203/100 (134) Pulse Ox 98 O2 Delivery Room Air Blood Pressure Mean: 134 Diagnostic Imaging Diagonstic Imaging: Xray Comments NAME: ANTHONY [facility] REC#: [id number] PT STATUS: REG ER : 1965 PHYSICIAN: MARLEN FLANAGAN APRN ADMIT DATE: 12/28/17/ER Draft Date of Exam:12/28/17 CT HEAD WO INDICATION: Headache. Fever. Nausea and dizziness. TECHNIQUE: Routine non contrast-enhanced axial images were obtained from the skull base to the vertex. COMPARISON: 11/05/2017 FINDINGS: The ventricles and cortical sulci are diffusely prominent, compatible with age-related volume loss. There are confluent areas of abnormal, low attenuation in the periventricular white matter. This is consistent with chronic small vessel ischemic changes. There is no midline shift or mass-effect. No acute intra-axial hemorrhage is seen. There are no abnormal areas of increased or decreased density to suggest acute hemorrhage or edema. No extra-axial masses or collections are present. Craniotomy defect is noted superiorly on the right. Bone flap is in satisfactory position. The visualized paranasal sinuses are unremarkable. The mastoid air cells are clear. IMPRESSION: 1. No acute intracranial abnormality. No CT evidence of mass, acute infarct or intracranial hemorrhage. 2. Chronic small vessel ischemic changes in the deep white matter. 3. Craniotomy defect superiorly on the right. Again, bone flap is in satisfactory position. Dictated on workstation # [id number] Dict: 12/28/17 1546 Trans: 12/28/17 1551 FRANCOIS [id number] Interpreted by: MARYURI GARCIA MD Electronically signed by: Departure Impression Primary Impression: Chronic headaches Disposition: 01 HOME, SELF-CARE Condition: Stable Departure-Patient Inst. Decision time for Depature: 16:18 Referrals: [facility] (PCP) Primary Care Physician OSBALDO CORRAL APRN (Family) Primary Care Physician Patient Instructions: Headache, Adult (DC) Add. Discharge Instructions: 1. Return to ER for any concerns 2. Follow-up with your doctor next week 3. All discharge instructions reviewed with patient and/or family. Voiced understanding. MARLEN FLANAGAN APRN Dec 28, 2017 14:39
[2017-12-28] MEDS ORDERED: KETOROLAC 30 MG/ML VIAL IVP ONE (14:45)
[2017-12-28] MEDS ORDERED: meTOprolol 5 MG/5 ML (LOPRESSOR) VIAL IV ONE (14:45)
[2017-12-28] MEDS ORDERED: PROCHLORPERAZINE 10 MG/2ML INJ (COMPAZINE) IV ONE (14:45)
[2017-12-28] MEDS ORDERED: diphenhydrAMINE 50 MG/ML INJ (BENADRYL) IVP ONE (14:45)
[2017-12-28 15:52] LABS: BASOPHILS % (AUTO) 0 % (0-10); EOSINOPHILS # (AUTO) 0.2 10^3/uL (0.0-0.3); EOSINOPHILS % (AUTO) 2 % (0-10); HEMATOCRIT 37 % (35-52); HEMOGLOBIN 13.3 G/DL (11.5-16.0); LYMPHOCYTES # (AUTO) 2.3 X 10^3 (1.0-4.0); LYMPHOCYTES % (AUTO) 30 % (12-44); MEAN CORPUSCULAR HEMOGLOBIN 33 PG (25-34); MEAN CORPUSCULAR HGB CONC 36 G/DL (32-36); MEAN CORPUSCULAR VOLUME 92 FL (80-99); MEAN PLATELET VOLUME 9.6 FL (7.4-10.4); MONOCYTES # (AUTO) 0.7 X 10^3 (0.0-1.0); MONOCYTES % (AUTO) 10 % (0-12); NEUTROPHILS # (AUTO) 4.4 X 10^3 (1.8-7.8); NEUTROPHILS % (AUTO) 58 % (42-75); PLATELET COUNT 280 10^3/uL (130-400); RED BLOOD COUNT 4.08 10^6/uL (4.35-5.85); RED CELL DISTRIBUTION WIDTH 13.1 % (10.0-14.5); WHITE BLOOD COUNT 7.6 10^3/uL (4.3-11.0)
--- NOTE | 2017-12-28 15:52 | Diagnostic Imaging Report ---
INDICATION: Headache. Fever. Nausea and dizziness. TECHNIQUE: Routine non contrast-enhanced axial images were obtained from the skull base to the vertex. COMPARISON: 11/05/2017 FINDINGS: The ventricles and cortical sulci are diffusely prominent, compatible with age-related volume loss. There are confluent areas of abnormal, low attenuation in the periventricular white matter. This is consistent with chronic small vessel ischemic changes. There is no midline shift or mass-effect. No acute intra-axial hemorrhage is seen. There are no abnormal areas of increased or decreased density to suggest acute hemorrhage or edema. No extra-axial masses or collections are present. Craniotomy defect is noted superiorly on the right. Bone flap is in satisfactory position. The visualized paranasal sinuses are unremarkable. The mastoid air cells are clear. IMPRESSION: 1. No acute intracranial abnormality. No CT evidence of mass, acute infarct or intracranial hemorrhage. 2. Chronic small vessel ischemic changes in the deep white matter. 3. Craniotomy defect superiorly on the right. Again, bone flap is in satisfactory position. Dictated by: Dictated on workstation # [id number]
[2017-12-28 16:09] LABS: ALANINE AMINOTRANSFERASE 14 U/L (0-55); ALBUMIN 4.7 GM/DL (3.2-4.5); ALKALINE PHOSPHATASE 34 U/L (40-136); BILIRUBIN,TOTAL 0.7 MG/DL (0.1-1.0); BUN/CREATININE RATIO 9; CALCIUM 9.9 MG/DL (8.5-10.1); CARBON DIOXIDE 26 MMOL/L (21-32); CHLORIDE 100 MMOL/L (98-107); CREATININE SERUM 1.28 MG/DL (0.60-1.30); GFR ESTIMATED 44; GLUCOSE 105 MG/DL (70-105); POTASSIUM 4.1 MMOL/L (3.6-5.0); SODIUM 137 MMOL/L (135-145); TOTAL PROTEIN 6.9 GM/DL (6.4-8.2)
[2017-12-28 16:40] LABS: ERYTHROCYTE SEDIMENTATION RATE 1 MM/HR (0-30)
[2017-12-28 16:55] VITALS: BP 165/88
== END 2017-12-28 16:55 | disposition home or self-care (01) ==
LOC: EDUNIT# 14:09 → ER 14:12
DX: R51 Headache (principal); G89.29 Other chronic pain; E78.00 Pure hypercholesterolemia, unspecified; I10 Essential (primary) hypertension; G43.909 Migraine, unspecified, not intractable, without status migrainosus; F41.9 Anxiety disorder, unspecified; F32.9 Major depressive disorder, single episode, unspecified; F17.210 Nicotine dependence, cigarettes, uncomplicated; Z90.710 Acquired absence of both cervix and uterus; Z90.89 Acquired absence of other organs; Z88.2 Allergy status to sulfonamides; Z88.5 Allergy status to narcotic agent; Z91.041 Radiographic dye allergy status; Z79.82 Long term (current) use of aspirin; Z98.890 Other specified postprocedural states
CPT/HCPCS: 36415; 70450; 80053; 85025; 85652; 86141; 99282

== ENCOUNTER 2018-05-04 01:17 | Emergency (ER) | payer MEDICARE, MEDICAID ==
[~2018-05-04] VITALS: Ht 172.7 cm; Wt 64.6 kg
[2018-05-04] MEDS ORDERED: FAMOTIDINE 20MG/2ML IV (PEPCID) IVP ONE (01:30)
[2018-05-04] MEDS ORDERED: ONDANSETRON 4 MG/2 ML (SDV) Z0FRAN IVP ONE (01:30)
[2018-05-04] MEDS ORDERED: ASPIRIN 81 MG CHEW (CHILDREN'S ASA) PO ONE (01:30)
[2018-05-04 01:38] LABS: BASOPHILS # (AUTO) 0.1 10^3/uL (0.0-0.1); BASOPHILS % (AUTO) 1 % (0-10); EOSINOPHILS # (AUTO) 0.1 10^3/uL (0.0-0.3); EOSINOPHILS % (AUTO) 1 % (0-10); HEMATOCRIT 41 % (35-52); HEMOGLOBIN 13.8 G/DL (11.5-16.0); LYMPHOCYTES # (AUTO) 2.4 X 10^3 (1.0-4.0); LYMPHOCYTES % (AUTO) 27 % (12-44); MEAN CORPUSCULAR HEMOGLOBIN 32 PG (25-34); MEAN CORPUSCULAR HGB CONC 34 G/DL (32-36); MEAN CORPUSCULAR VOLUME 94 FL (80-99); MEAN PLATELET VOLUME 10.6 FL (7.4-10.4); MONOCYTES # (AUTO) 0.9 X 10^3 (0.0-1.0); MONOCYTES % (AUTO) 10 % (0-12); NEUTROPHILS # (AUTO) 5.5 X 10^3 (1.8-7.8); NEUTROPHILS % (AUTO) 61 % (42-75); PLATELET COUNT 301 10^3/uL (130-400); RED CELL DISTRIBUTION WIDTH 13.3 % (10.0-14.5)
[2018-05-04 01:47] LABS: PROTHROMBIN TIME PATIENT 13.1 SEC (12.2-14.7)
[2018-05-04 01:56] LABS: ALANINE AMINOTRANSFERASE 24 U/L (0-55); ALBUMIN 4.9 GM/DL (3.2-4.5); ALKALINE PHOSPHATASE 55 U/L (40-136); BILIRUBIN,TOTAL 0.7 MG/DL (0.1-1.0); BUN/CREATININE RATIO 6; CALCIUM 10.1 MG/DL (8.5-10.1); CARBON DIOXIDE 23 MMOL/L (21-32); CHLORIDE 104 MMOL/L (98-107); GFR ESTIMATED 52; GLUCOSE 111 MG/DL (70-105); MAGNESIUM 2.2 MG/DL (1.8-2.4); POTASSIUM 3.5 MMOL/L (3.6-5.0); SODIUM 142 MMOL/L (135-145)
[2018-05-04] MEDS ORDERED: LORazepam INJ 2 MG/ML (ATIVAN) VIAL IVP ONE (02:00)
[2018-05-04 02:02] LABS: MYOGLOBIN SERUM 61.5 NG/ML (10.0-92.0)
[2018-05-04] MEDS ORDERED: ANTACID SUSP 30 ML UDC (MYLANTA) PO ONE (02:30)
[2018-05-04] MEDS ORDERED: LIDOCAINE 2% VISCOUS 15 ML UDC PO ONE (02:30)
[2018-05-04 03:07] LABS: FREE T4 (FREE THYROXINE) 1.3 NG/DL (0.70-1.48)
[2018-05-04 03:45] LABS: BILIRUBIN,URINE NEGATIVE (NEGATIVE); CLARITY,URINE CLEAR; COLOR,URINE YELLOW; GLUCOSE, URINE (UA) NEGATIVE (NEGATIVE); KETONES,URINE 1+ (NEGATIVE); LEUKOCYTE ESTERASE ,URINE 1+ (NEGATIVE); NITRITE,URINE NEGATIVE (NEGATIVE); PH,URINE 6 (5-9); PROTEIN,URINE 2+ (NEGATIVE); UROBILINOGEN,URINE 4 MG/DL (NORMAL)
[2018-05-04 04:01] LABS: BACTERIA,URINE TRACE /HPF
--- NOTE | 2018-05-04 04:26 | ED Chest Pain ---
General Chief Complaint: Chest Pain Stated Complaint: CP Source: patient Exam Limitations: no limitations History of Present Illness Date Seen by Provider: May 04, 2018 Time Seen by Provider: 01:19 Initial Comments This 52-year-old woman presents to the emergency room via EMS with complaints of chest pain. She also had notable hypertension. She was given nitroglycerin sublingually times one followed by Nitropaste by EMS. Patient has significant anxiety as well. She notes that she has not been able to take her usual medications today including her blood pressure medications because of vomiting. EMS also administered Zofran 4 mg by IV route. Patient stated she had a stress test performed at an outside facility that was unremarkable to the best of her recollection. Allergies and Home Medications Allergies Coded Allergies: Sulfa (Sulfonamide Antibiotics) (Verified Allergy, Unknown, 05/24/16) divalproex sodium (Verified Allergy, Unknown, 05/24/16) hydromorphone (Unverified Allergy, Unknown, 08/24/17) iodine (Verified Allergy, Unknown, 05/24/16) Home Medications Alprazolam 0.5 Mg Tablet, 0.5 MG PO TID PRN for ANXIETY, (Reported) Aspirin 81 Mg Tablet.dr, 81 MG PO HS, (Reported) Cholecalciferol (Vitamin D3) 400 Unit Capsule, 400 UNIT PO DAILY, (Reported) Cyanocobalamin 1,000 Mcg/Ml Inj, 1,000 MCG IJ MONTHLY, (Reported) Duloxetine HCl 30 Mg Capsule.dr, 30 MG PO DAILY, (Reported) Folic Acid 0.4 Mg Tablet, 0.4 MG PO DAILY, (Reported) Ibuprofen 200 Mg Tablet, 600-800 MG PO Q6H PRN for PAIN-MILD, (Reported) Lisinopril 40 Mg Tablet, 40 MG PO DAILY, (Reported) Metoprolol Tartrate 25 Mg Tablet, 25 MG PO HS, (Reported) Ondansetron 4 Mg Tab.rapdis, 4 MG PO Q4H Prescribed by: MARJAN STOLL on 06/19/17 1206 Ondansetron 4 Mg Tab.rapdis, 4 MG SL Q4H PRN for NAUSEA/VOMITING Prescribed by: BENJAMIN FARIA on 05/04/18 0459 Potassium Chloride 10 Meq Tab.er.prt, 10 MEQ PO 1600, (Reported) Pravastatin Sodium 80 Mg Tablet, 80 MG PO HS, (Reported) Prochlorperazine Maleate 10 Mg Tablet, 10 MG PO Q6H PRN for NAUSEA/VOMITING-2ND LINE Prescribed by: MARJAN STOLL on 06/19/17 1206 Prochlorperazine Maleate 10 Mg Tablet, 10 MG PO Q6H PRN for NAUSEA/VOMITING-1ST LINE Prescribed by: WHITLEY WYMAN on 08/24/17 1130 Tizanidine HCl 4 Mg Tablet, 4 MG PO TID PRN for MUSCLE SPASMS, (Reported) Zolpidem Tartrate 10 Mg Tablet, 10 MG PO HS PRN for SLEEP, (Reported) Patient Home Medication List Home Medication List Reviewed: Yes Review of Systems Review of Systems Constitutional: no symptoms reported EENTM: No Symptoms Reported Respiratory: No Symptoms Reported Cardiovascular: See HPI Gastrointestinal: See HPI Genitourinary: Burning Musculoskeletal: no symptoms reported Skin: no symptoms reported Psychiatric/Neurological: No Symptoms Reported Endocrine: No Symptoms Reported Hematologic/Lymphatic: No Symptoms Reported Past Oncpbyx-Phaaks-Fsijsy Hx Patient Social History Type Used: Cigarettes 2nd Hand Smoke Exposure: Yes Recent Hopitalizations: No Immunizations Up To Date Tetanus Booster (TDap): Unknown PED Vaccines UTD: Yes Seasonal Allergies Seasonal Allergies: Yes Past Medical History Surgeries: Yes Cardiac (cardiac catheter 2011 with normal coronary arteries), Gallbladder, Hysterectomy, Neurological, Oophorectomy, Tonsillectomy Respiratory: No Cardiac: Yes (MVP; "LEAKY AORTIC VALVE" PER PT) Heart Murmur, High Cholesterol, Hypertension, Valvular Heart Disease Neurological: Yes (BRAIN SURGERY X 2 FOR COLLOID CYST 3RD VENTRICLE; CHRONIC DAILY HEADACHES) Headaches /Migraines 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 6.0oz. 64.822983eo; 18.9 BMI Method:Stated General Appearance: WD/WN, Mild Distress, Thin HEENT: PERRL/EOMI, Normal ENT Inspection, Pharynx Normal Neck: Normal Inspection Respiratory: Lungs Clear, Normal Breath Sounds, No Accessory Muscle Use, No Respiratory Distress, Other (anterior chest wall tender to palpation) Cardiovascular: Regular Rate, Rhythm, No Edema, No Murmur, Normal Peripheral Pulses Gastrointestinal: Normal Bowel Sounds, Non Tender, Soft Extremity: Normal Inspection, No Pedal Edema Neurologic/Psychiatric: Alert, Oriented x3, No Motor/Sensory Deficits, Normal Mood/Affect, oil agent II-XII Norm as Tested Skin: Normal Color, Warm/Dry Progress/Results/Core Measures Results/Orders Lab Results Laboratory Tests Test 05/04/18 01:20 05/04/18 03:35 Range/Units White Blood Count 9.0 4.3-11.0 10^3/uL Red Blood Count 4.33 L 4.35-5.85 10^6/uL Hemoglobin 13.8 11.5-16.0 G/DL Hematocrit 41 35-52 % Mean Corpuscular Volume 94 80-99 FL Mean Corpuscular Hemoglobin 32 25-34 PG Mean Corpuscular Hemoglobin Concent 34 32-36 G/DL Red Cell Distribution Width 13.3 10.0-14.5 % Platelet Count 301 130-400 10^3/uL Mean Platelet Volume 10.6 H 7.4-10.4 FL Neutrophils (%) (Auto) 61 42-75 % Lymphocytes (%) (Auto) 27 12-44 % Monocytes (%) (Auto) 10 0-12 % Eosinophils (%) (Auto) 1 0-10 % Basophils (%) (Auto) 1 0-10 % Neutrophils # (Auto) 5.5 1.8-7.8 X 10^3 Lymphocytes # (Auto) 2.4 1.0-4.0 X 10^3 Monocytes # (Auto) 0.9 0.0-1.0 X 10^3 Eosinophils # (Auto) 0.1 0.0-0.3 10^3/uL Basophils # (Auto) 0.1 0.0-0.1 10^3/uL Prothrombin Time 13.1 12.2-14.7 SEC INR Comment 1.0 0.8-1.4 Activated Partial Thromboplast Time 26 24-35 SEC Sodium Level 142 135-145 MMOL/L Potassium Level 3.5 L 3.6-5.0 MMOL/L Chloride Level 104 98-107 MMOL/L Carbon Dioxide Level 23 21-32 MMOL/L Anion Gap 15 H 5-14 MMOL/L Blood Urea Nitrogen 7 7-18 MG/DL Creatinine 1.10 0.60-1.30 MG/DL Estimat Glomerular Filtration Rate 52 BUN/Creatinine Ratio 6 Glucose Level 111 H 70-105 MG/DL Calcium Level 10.1 8.5-10.1 MG/DL Corrected Calcium 8.5-10.1 MG/DL Magnesium Level 2.2 1.8-2.4 MG/DL Total Bilirubin 0.7 0.1-1.0 MG/DL Aspartate Amino Transf (AST/SGOT) 30 5-34 U/L Alanine Aminotransferase (ALT/SGPT) 24 0-55 U/L Alkaline Phosphatase 55 40-136 U/L Myoglobin 61.5 10.0-92.0 NG/ML Troponin I < 0.028 <0.028 NG/ML Total Protein 7.0 6.4-8.2 GM/DL Albumin 4.9 H 3.2-4.5 GM/DL Thyroid Stimulating Hormone (TSH) 1.31 0.35-4.94 UIU/ML Free Thyroxine 1.30 0.70-1.48 NG/DL Urine Color YELLOW Urine Clarity CLEAR Urine pH 6 5-9 Urine Specific [place] 1.015 L 1.016-1.022 Urine Protein 2+ H NEGATIVE Urine Glucose (UA) NEGATIVE NEGATIVE Urine Ketones 1+ H NEGATIVE Urine Nitrite NEGATIVE NEGATIVE Urine Bilirubin NEGATIVE NEGATIVE Urine Urobilinogen 4 H NORMAL MG/DL Urine Leukocyte Esterase 1+ H NEGATIVE Urine RBC (Auto) 1+ H NEGATIVE Urine RBC NONE /HPF Urine WBC NONE /HPF Urine Squamous Epithelial Cells 2-5 /HPF Urine Crystals NONE /LPF Urine Bacteria TRACE /HPF Urine Casts NONE /LPF Urine Mucus SMALL H /LPF Urine Culture Indicated NO My Orders Orders - BENJAMIN YADAV MD Cbc With Automated Diff (05/04/18 01:24) Magnesium (05/04/18 01:24) Chest 1 View, Ap/Pa Only (05/04/18 01:24) Ekg Tracing (05/04/18 01:24) Cardiac Profile 1 (05/04/18 01:24) Comprehensive Metabolic Panel (05/04/18 01:24) Myoglobin Serum (05/04/18 01:24) Protime With Inr (05/04/18 01:24) Partial Thromboplastin Time (05/04/18 01:24) O2 (05/04/18 01:24) Monitor-Rhythm Ecg Trace Only (05/04/18 01:24) Aspirin Chewable Tablet (Baby Aspirin Ch (05/04/18 01:30) Saline Lock/Iv-Start (05/04/18 01:24) Ondansetron Injection (Zofran Injectio (05/04/18 01:30) Famotidine Injection (Pepcid Injection) (05/04/18 01:30) Lorazepam Injection (Ativan Injection) (05/04/18 02:00) Free T4 (Free Thyroxine) (05/04/18 02:19) Thyroid Stimulating Hormone (05/04/18 02:19) Lidocaine 2% Viscous 15 Ml (Xylocaine Vi (05/04/18 02:30) Antacid Suspension (Mylanta Suspension (05/04/18 02:30) Ua Culture If Indicated (05/04/18 03:40) Medications Given in ED Current Medications Medications Dose Ordered Sig/Francisco Route Start Time Stop Time Status Last Admin Dose Admin Al Hydrox/Mg Hydrox/Simethicone 30 ml ONCE ONCE PO 05/04/18 02:30 05/04/18 02:31 DC 05/04/18 02:47 30 ML Aspirin 324 mg ONCE ONCE PO 05/04/18 01:30 05/04/18 01:31 DC 05/04/18 01:34 324 MG Famotidine 20 mg ONCE ONCE IVP 05/04/18 01:30 05/04/18 01:31 DC 05/04/18 01:33 20 MG Lidocaine HCl 15 ml ONCE ONCE PO 05/04/18 02:30 05/04/18 02:31 DC 05/04/18 02:46 15 ML Lorazepam 1 mg ONCE ONCE IVP 05/04/18 02:00 05/04/18 02:01 DC 05/04/18 02:04 1 MG Ondansetron HCl 4 mg ONCE ONCE IVP 05/04/18 01:30 05/04/18 01:31 DC 05/04/18 01:33 4 MG Vital Signs/I&O 05/04/18 05/04/18 05/04/18 01:20 01:20 05:09 Temp 97.9 97.9 Pulse 64 60 Resp 19 B/P (MAP) 186/99 (128) 166/103 (124) Pulse Ox 99 O2 Delivery Room Air Room Air Room Air Progress Progress Note : Progress Note Patient was still nauseous and was given an additional 4 mg of Zofran. GI cocktail and aspirin were also given. Pain improved significantly with GI cocktail. Patient was given Ativan 1 mg IV. She is accustomed to taking her benzodiazepines every day but was not able to keep her oral medications down today because of vomiting. Troponin and EKG were unremarkable. Patient did complain of some dysuria but urinalysis did not demonstrate infection. Patient was dismissed home for further follow-up care with her primary care provider. Initial ECG Impression Date: May 04, 2018 Initial ECG Impression Time: 01:27 Initial ECG Rate: 53 Comment Sinus rhythm with no ST elevation or depression. No abnormal intervals. LVH present. Diagnostic Imaging Diagonstic Imaging: Xray Plain Films/CT/US/NM/MRI: chest Comments Chest x-ray viewed by me. Report yet available. No acute abnormalities appreciated. Departure Impression Primary Impression: Atypical chest pain Additional Impressions: Dysuria Nausea vomiting and diarrhea Uncontrolled hypertension Disposition: 01 HOME, SELF-CARE Condition: Improved Departure-Patient Inst. Referrals: [facility] (PCP) Primary Care Physician OSBALDO CORRAL APRN (Family) Primary Care Physician Patient Instructions: Chest Pain (DC) Add. Discharge Instructions: Take Zofran as prescribed. Take your blood pressure medications when you return home. 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 Return to care symptoms are worsening. If needed, you may also use an antacid medication such as Pepcid or omeprazole to help with upset stomach. All discharge instructions reviewed with patient and/or family. Voiced understanding. Scripts Ondansetron (Ondansetron Odt) 4 Mg Tab.rapdis 4 MG SL Q4H PRN for NAUSEA/VOMITING, #10 TAB Prov: BENJAMIN YADAV MD 05/04/18 EBNJAMIN YADAV MD May 04, 2018 04:26
[2018-05-04] MEDS ORDERED: ONDA4TAB11 SL (04:59)
[2018-05-04 05:09] VITALS: BP 166/103
--- NOTE | 2018-05-04 07:29 | Diagnostic Imaging Report ---
Patient History: Chest pain. Technique: Frontal view of the chest Comparison: 12/25/2017 FINDINGS: The lung volumes are normal. No focal consolidation is seen. No large pleural effusion or pneumothorax is seen. The cardiomediastinal silhouette is normal in size and contour. No acute osseous abnormality is seen. There is mild right convex curvature of the thoracic spine. IMPRESSION: No acute pulmonary abnormality seen. Dictated by: Dictated on workstation # [id number]
== END 2018-05-04 05:10 | disposition home or self-care (01) ==
LOC: EDUNIT# 01:17 → ER 01:19
DX: R30.0 Dysuria (principal); R11.2 Nausea with vomiting, unspecified; R19.7 Diarrhea, unspecified; I10 Essential (primary) hypertension; E78.00 Pure hypercholesterolemia, unspecified; F41.9 Anxiety disorder, unspecified; F32.9 Major depressive disorder, single episode, unspecified; Z86.69 Personal history of other diseases of the nervous system and sense organs; Z88.2 Allergy status to sulfonamides; Z91.041 Radiographic dye allergy status; Z88.5 Allergy status to narcotic agent; Z79.82 Long term (current) use of aspirin; Z77.22 Contact with and (suspected) exposure to environmental tobacco smoke (acute) (chronic); Z90.710 Acquired absence of both cervix and uterus; Z90.89 Acquired absence of other organs
CPT/HCPCS: 36415; 71045; 80053; 81000; 83735; 83874; 84439; 84443; 84484; 85025; 85610; 85730; 93005; 93041